=== PATIENT | female | born 1935 | race Caucasian/White ===

== ENCOUNTER 2020-08-25 08:28 | Outpatient (REF) | payer MEDICARE, SELFPAY ==
--- NOTE | 2020-08-25 | MM_ITS ---
EXAMINATION: MM SCREENING DIGITAL BREAST TOMOSYNTHESIS, BILATERAL CLINICAL INFORMATION: Screening. Asymptomatic. The lifetime risk of breast cancer based on the Tyrer-Cuzick Model is 0.7%. COMPARISON: Mammography: August 20, 2019 and studies dating back to February 04, 2012 TECHNIQUE: Digital breast tomosynthesis is performed in both the craniocaudal and mediolateral oblique views along with computer-aided detection (CAD). Synthesized 2D images are generated from the tomosynthesis. FINDINGS: There are scattered areas of fibroglandular density (ACR BI-RADS breast composition Category b). There are no significant masses, abnormal calcifications, or other abnormalities. MM/MM tomosynthesis screening BI IMPRESSION: There are no significant changes from prior study. ASSESSMENT: BI-RADS 1: Negative RECOMMENDATION: Routine annual mammography screening. This patient's information was entered into a reminder system with a target due date for their next mammogram.
[2020-08-25 10:42] LABS: Cholesterol 159 mg/dL; HDL Cholesterol 50 mg/dL; LDL Cholesterol Calculated 78 mg/dl; Triglycerides 155 mg/dL
== END 2020-08-25 08:29 | disposition home or self-care (01) ==
LOC: HO.MAMMO 08:28
PROVIDERS: PCP Internal Medicine; Visit Provider Internal Medicine
DX: Z12.31 Encounter for screening mammogram for malignant neoplasm of breast (principal); E78.5 Hyperlipidemia, unspecified
CPT/HCPCS: 77063; 77067; 80061

== ENCOUNTER 2020-10-19 | Outpatient (REF) | payer MEDICARE, SELFPAY | END 2020-10-19 00:01 | disposition home or self-care (01) | LOC: HO.VC | PROVIDERS: Visit Provider Internal Medicine | DX: Z23 Encounter for immunization (principal) | CPT/HCPCS: 0011A ==

== ENCOUNTER 2020-11-15 | Outpatient (REF) | payer MEDICARE, SELFPAY | END 2020-11-15 00:01 | disposition home or self-care (01) | LOC: HO.VC | PROVIDERS: Visit Provider Internal Medicine | DX: Z23 Encounter for immunization (principal) | CPT/HCPCS: 0012A ==

== ENCOUNTER 2020-11-15 08:26 | Outpatient (REF) | payer MEDICARE, SELFPAY ==
[2020-11-15 09:14] LABS: MANUAL DIFF FLAG NO
[2020-11-15 09:19] LABS: Basophils Percent Auto 0.5 % (0-2); Eosinophils Absolute Auto 0.2 X10*3/uL (0.0-0.4); Eosinophils Percent Auto 3.4 % (0-4); Hemoglobin 11.8 g/dl (12.0-16.0); Imm Gran Abs Auto 0.02 X10*3/uL (0.00-0.03); Imm Gran Pct Auto 0.4 % (0.0-0.4); Lymphocytes Absolute Auto 1.2 X10*3/uL (1.2-4.9); Lymphocytes Percent Auto 21.8 % (20-40); Mean Corpuscular HGB Conc 32.8 g/dl (31.0-35.0); Mean Corpuscular Hemoglobin 30.4 pg (27.0-33.0); Mean Corpuscular Volume 92.8 fL (80-98); Monocytes Absolute Auto 0.5 X10*3/uL (0.1-1.2); Monocytes Percent Auto 9.2 % (2-11); Neutrophils Absolute Auto 3.7 X10*3/uL (2.0-8.3); Neutrophils Percent Auto 64.7 % (45-73); Platelet Count 252 X10*3/uL (160-400); Red Blood Count 3.88 X10*6/uL (4.20-5.50); Red Cell Distribution Width 12.5 % (11.0-16.0); White Blood Count 5.6 X10*3/uL (4.8-10.8)
[2020-11-15 09:49] LABS: Alanine Aminotransferase 12 U/L (0-31); Albumin Level 4.6 g/dL (3.5-5.0); Alkaline Phosphatase 96 U/L (39-117); Anion Gap 13 (12-20); Aspartate Amino Transferase 15 U/L (5-31); Bilirubin Total 0.6 mg/dL (0.0-1.0); Blood Urea Nitrogen 33 mg/dL (9-16); Calcium 9.4 mg/dL (8.4-10.2); Carbon Dioxide 24 mmol/L (22-29); Chloride 110 mmol/L (96-108); Cholesterol 156 mg/dL; Estimated Glomerular Filt Rate 36; Glucose Fasting 90 mg/dL (60-99); HDL Cholesterol 46 mg/dL; LDL Cholesterol Calculated 77 mg/dl; Magnesium 1.5 mg/dL (1.6-2.6); Phosphorus 3.2 mg/dL (2.7-4.5); Potassium 5.2 mmol/L (3.3-5.1); Sodium 142 mmol/L (135-145); Total Protein 7.3 g/dL (6.5-8.0); Triglycerides 165 mg/dL
[2020-11-15 10:17] LABS: Vitamin D 25-OH Total 23.3 ng/mL (>30)
[2020-11-15 11:12] LABS: Renal w Reflex Lab Use Only Order verified
[2020-11-17 12:01] LABS: Calcium (PTHI) 9.8 mg/dL (8.6-10.4); PTHI 170 pg/mL (14-64)
== END 2020-11-15 08:27 | disposition home or self-care (01) ==
LOC: HO.LAB 08:26
PROVIDERS: Absent Provider Internal Medicine; PCP Internal Medicine; Visit Provider Internal Medicine Nephrology
DX: Z00.00 Encounter for general adult medical examination without abnormal findings (principal); E11.22 Type 2 diabetes mellitus with diabetic chronic kidney disease; I12.9 Hypertensive chronic kidney disease with stage 1 through stage 4 chronic kidney disease, or unspecified chronic kidney disease; N18.30 Chronic kidney disease, stage 3 unspecified; N25.81 Secondary hyperparathyroidism of renal origin
CPT/HCPCS: 36415; 80053; 80061; 82306; 83735; 83970; 84100; 85025

== ENCOUNTER 2021-01-31 08:19 | Outpatient (REF) | payer MEDICARE, SELFPAY ==
[2021-01-31 09:31] LABS: MANUAL DIFF FLAG NO
[2021-01-31 09:41] LABS: Basophils Percent Auto 0.6 % (0-2); Eosinophils Absolute Auto 0.2 X10*3/uL (0.0-0.4); Eosinophils Percent Auto 3.6 % (0-4); Hematocrit 34.8 % (37-47); Hemoglobin 11.3 g/dl (12.0-16.0); Imm Gran Abs Auto 0.01 X10*3/uL (0.00-0.03); Imm Gran Pct Auto 0.2 % (0.0-0.4); Lymphocytes Absolute Auto 1.2 X10*3/uL (1.2-4.9); Mean Corpuscular HGB Conc 32.5 g/dl (31.0-35.0); Mean Corpuscular Hemoglobin 30.4 pg (27.0-33.0); Mean Corpuscular Volume 93.5 fL (80-98); Mean Platelet Volume 10.1 fL (9.4-12.3); Monocytes Absolute Auto 0.5 X10*3/uL (0.1-1.2); Neutrophils Absolute Auto 2.9 X10*3/uL (2.0-8.3); Neutrophils Percent Auto 60.6 % (45-73); Platelet Count 241 X10*3/uL (160-400); Red Blood Count 3.72 X10*6/uL (4.20-5.50); White Blood Count 4.7 X10*3/uL (4.8-10.8)
[2021-01-31 09:59] LABS: Alanine Aminotransferase 13 U/L (0-31); Albumin Level 4.2 g/dL (3.5-5.0); Alkaline Phosphatase 92 U/L (39-117); Anion Gap 14 (12-20); Aspartate Amino Transferase 14 U/L (5-31); Bilirubin Total 0.5 mg/dL (0.0-1.0); Blood Urea Nitrogen 39 mg/dL (9-16); Calcium 9.3 mg/dL (8.4-10.2); Carbon Dioxide 21 mmol/L (22-29); Chloride 113 mmol/L (96-108); Cholesterol 147 mg/dL; Estimated Glomerular Filt Rate 37; Glucose Fasting 91 mg/dL (60-99); HDL Cholesterol 48 mg/dL; LDL Cholesterol Calculated 75 mg/dl; Potassium 4.7 mmol/L (3.3-5.1); Sodium 143 mmol/L (135-145); Total Protein 6.9 g/dL (6.5-8.0); Triglycerides 122 mg/dL
[2021-01-31 10:22] LABS: Thyroid Stimulating Hormone 1.28 uIU/mL (0.32-4.0)
== END 2021-01-31 08:20 | disposition home or self-care (01) ==
LOC: HO.LAB 08:19
PROVIDERS: PCP Internal Medicine; Visit Provider Internal Medicine
DX: Z00.00 Encounter for general adult medical examination without abnormal findings (principal); E03.9 Hypothyroidism, unspecified; E11.9 Type 2 diabetes mellitus without complications
CPT/HCPCS: 36415; 80053; 80061; 84443; 85025

== ENCOUNTER 2021-02-16 10:46 | Inpatient (IN) | payer MEDICARE, SELFPAY ==
--- NOTE | 2021-02-16 | ECG_ITS ---
Test Reason : CHEST PAIN Blood Pressure : / mmHG Vent. Rate : 070 BPM Atrial Rate : 070 BPM P-R Int : 176 ms QRS Dur : 080 ms QT Int : 380 ms P-R-T Axes : 005 023 053 degrees QTc Int : 410 ms Normal sinus rhythm Nonspecific T wave changes Borderline ECG When compared to the previous EKG of nonspecific T wave changes in V1 and V2 Referred By: Ethel Ovalles Electronically Signed By:Harman Rico
--- NOTE | ~2021-02-16 | XR_ITS ---
EXAMINATION: XR CHEST CLINICAL INFORMATION: Chest pain. COMPARISON: None TECHNIQUE: Frontal view of the chest was obtained. FINDINGS: No significant abnormality is noted involving the heart, lungs, mediastinum, bony thorax or soft tissues. XR/XR chest 1V IMPRESSION: Unremarkable chest examination.
--- NOTE | ~2021-02-16 | US_ITS ---
EXAMINATION: US ABDOMEN COMPLETE CLINICAL INFORMATION: Epigastric pain, elevated LFTs. COMPARISON: CT scan of the abdomen and pelvis dated 12/14/2015. TECHNIQUE: Real-time imaging of the abdominal viscera. FINDINGS: PANCREAS: Visualized portions unremarkable. ABDOMINAL AORTA: Infrarenal abdominal aortic aneurysm measuring up to 3.0 cm in transverse dimension. Mild to moderate atherosclerosis INFERIOR VENA CAVA: Visualized portions are normal. LIVER: Unremarkable. GALLBLADDER: Several gallstones are seen measuring up to 0.9 cm. No significant mural thickening or pericholecystic fluid. COMMON BILE DUCT: The common hepatic duct measures 1.2 cm. The common bile duct was not well-visualized distally. RIGHT KIDNEY: 9.9 cm. Several anechoic cysts are seen. A manufacturers representative cyst in the upper pole the right kidney measures 1.9 cm. LEFT KIDNEY: 10.5 cm. Several anechoic cysts are seen. An exophytic cyst off of the upper pole the left kidney measures 4.0 cm. SPLEEN: 9.2 cm. FREE FLUID: None. US/US abdomen complete IMPRESSION: 1. Infrarenal abdominal aortic aneurysm measuring up to 3.0 cm is similar to the 2016 study. Current imaging follow-up guidance for an aneurysm of the size is a repeat 3 years. 2. Cholelithiasis without evidence for acute cholecystitis. 3. Dilatation of the common hepatic duct is similar to the previous CT scan. The common bile duct distally with suboptimally visualized. If symptoms persist or worsen, MRCP should be considered. 4. Bilateral renal cysts, left greater than right demonstrate benign features and correlate with previous CT findings.
--- NOTE | ~2021-02-16 | NM_ITS ---
Myocardial perfusion study Indication: NSTEMI Technique: The patient was brought in for a Lexiscan perfusion study on 02/20/2021. Patient performed low-level exercise and was injected 0.4 mg of Lexiscan intravenously. Within a minute of injection, 25 mCi of sestamibi was given intravenously. Images were obtained using the SPECT gamma camera interlaced with the gating device. Images were obtained in supine position. Resting perfusion study was performed on 02/21/2021. Patient was administered 25 mCi of sestamibi intravenously at rest. Images were then obtained in supine position. Images obtained with and without CT attenuation. Total DLP 125 mGy-cm. Images were processed with the software and compared side to side in short axis, horizontal long axis and vertical long axis views. Findings: The stress perfusion study showed both attenuated as well as nonattenuated images show normal uptake of radiotracer in all segments of LV myocardium. There is suggestion of left ventricle hypertrophy.. The gated study shows normal LV systolic function with calculated LVEF of greater than 69 %. LV cavity is normal in size. The gated study shows normal cyst colic wall thickening and contraction of segments. Resting study shows mildly reduced uptake in the apex of the LV myocardium on both attenuated as well as nonattenuated images.. Gating at rest reveals normal systolic wall motion with ejection fraction at 71%. The findings are consistent with normal myocardial perfusion. NM/NM cardiolite stress test Impression: 1. Myocardial perfusion imaging study shows normal myocardial perfusion 2. Gated LVEF is 71% 3. Transient ischemic dilatation not present EKG is nondiagnostic for ischemia
[2021-02-16 10:54] VITALS: BP 174/74; PULSE 69; RESP 16; TEMP 36.9; O2SAT 99; BMI 28.7
--- NOTE | 2021-02-16 10:56 | ED.CHESTPAIN ---
HPI - Chest Pain General Chief Complaint: Chest Pain Stated Complaint: CHEST PAIN Time Seen by Provider: 02/16/21 10:56 Source: patient and EMS Mode of arrival: EMS Limitations: no limitations History of Present Illness MD complaint: chest heaviness Pertinent past history: other (GERD) Onset (ago): hour(s) (started at 5am just resolved prior to EMS arrival) Timing of current episode: now resolved Prior episodes: Yes Onset: during rest and awoke with symptoms Pain location: substernal Pain radiation: none Severity: moderate Quality: heaviness Relieving factors: antacids Exacerbating factors: nothing Associated symptoms: nausea, diaphoresis and dyspnea Treatment prior to arrival: aspirin and other (pantoprazole) Related Data Home Medications Medication Instructions Recorded Confirmed ergocalciferol (vitamin D2) 1,250 1,250 mcg PO Q2W 09/30/20 02/16/21 mcg (50,000 unit) capsule simvastatin 20 mg tablet 20 mg PO BEDTIME 09/30/20 02/16/21 aspirin 81 mg PO DAILY 02/16/21 02/16/21 lorazepam 0.5 mg PO DAILY PRN 02/16/21 02/16/21 nifedipine 90 mg PO DAILY 02/16/21 02/16/21 pantoprazole 40 mg PO DAILY@0630 02/16/21 02/16/21 psyllium husk [Metamucil] 1.04 g PO BEDTIME 02/16/21 02/16/21 Previous Rx's Medication Instructions Recorded valsartan 160 1 tab PO DAILY #90 tab 01/16/21 mg-hydrochlorothiazide 25 mg tablet Allergies Allergy/AdvReac Type Severity Reaction Status Date / Time No Known Drug Intolerances Allergy Unknown NOT Verified 09/30/20 09:39 APPLICABLE Review of Systems Review of Systems: Constitutional : No Weight loss, No Fever, No Chills ENT/Mouth : No sore throat, No Rhinorrhea Eyes: No Eye Pain, No Swelling Cardiovascular : pos Chest Pain, pos SOB, no Dyspnea on Exertion, No Orthopnea, No Edema, No Palpitations Respiratory : No Cough, No Sputum Gastrointestinal : pos Nausea, No Vomiting, No Diarrhea, No abdominal Pain, No Hematochezia, No Melena Genitourinary : No Dysuria, No Urinary Frequency Musculoskeletal : No joint pain, No Myalgias, No Joint Swelling Skin : No Skin Lesions, No rash Neuro : No Weakness, No Numbness, No Dizziness, No Headache Psych : No Anxiety/Panic, No Depression Heme/Lymph: No Bruising, No Lymphadenopathy Endocrine : No Polyuria, No Polydipsia All other systems reviewed and are negative [facility] Past Medical History Attestation statement: The following information was validated with the patient. Medical History Hyperlipidemia Hypertension Surgical History Faizaertoe, bilateral Total knee replacement status Family History Family History Father Heart disease Mother No problems noted. Brother Heart disease Social History Social History Alcohol intake: never Patient Tobacco Use Status: Former Tobacco user Tobacco use type: Cigarette Second Hand Smoke Exposure: No Use of substances other than those prescribed or required for medical reasons: No Advance Directives: Yes Advance Directives Information Provided: No Advance Directives on File: No Physical Exam Vital Signs: Vital Signs: Last Vital Signs Temp 98.7 F 02/16/21 15:41 Pulse 62 02/16/21 15:41 Resp 16 02/16/21 15:41 BP 149/56 H 02/16/21 15:41 Pulse Ox 99 02/16/21 15:41 Body Mass Index 28.7 Appearance: Alert. Oriented X3. No acute distress. Eyes: Pupils equal, round and reactive to light. ENT: Pharynx normal. Neck: Normal inspection. Neck supple. CVS: Normal heart rate and rhythm. Pulses normal. Respiratory: No respiratory distress. Breath sounds normal. Abdomen: Soft and nontender. Skin: Skin warm and dry. Normal skin color. Normal skin turgor. Extremities: No lower extremity edema. No calf ttp Neuro: Oriented X 3. No motor deficit. No sensory deficit. Course Course Course Narrative: no pain likely biliary colic vs passed stone, repeat trop pending, she has no WBC count, she has no further pain so obstruction seems unusual will repeat LFTs to see if there is a rise repeat troponin elevated already given aspirin remains chest pain free will admit for further workup MDM - Chest Pain MDM Narrative Medical decision making narrative: 85 yo female with HLD, HTN here with resovled chest discomfort strted at 5am took aspirin and pantoprazole no prior cardiac issues but her story is concerning no pain now will need labs, EKG, troponin x 2, dispo per results and findings, could be GERD vs ACS, doubt dissection or PE Lab Data Result diagrams: 02/16/21 11:24 02/16/21 11:24 Labs: Lab Results 02/16/21 02/16/21 02/16/21 Range/Units 11:24 11:24 11:24 WBC 5.5 (4.8-10.8) X10*3/uL RBC 3.73 L (4.20-5.50) X10*6/uL Hgb 11.4 L (12.0-16.0) g/dl Hct 34.8 L (37-47) % MCV 93.3 (80-98) fL MCH 30.6 (27.0-33.0) pg MCHC 32.8 (31.0-35.0) g/dl RDW 12.3 (11.0-16.0) % Plt Count 215 (160-400) X10*3/uL MPV 9.8 (9.4-12.3) fL Immature Gran % (Auto) 0.2 (0.0-0.4) % Neut % (Auto) 75.3 H (45-73) % Lymph % (Auto) 15.3 L (20-40) % [place] % (Auto) 7.8 (2-11) % Eos % (Auto) 0.9 (0-4) % Baso % (Auto) 0.5 (0-2) % Lymph # (Auto) 0.8 L (1.2-4.9) X10*3/uL [place] # (Auto) 0.4 (0.1-1.2) X10*3/uL Eos # (Auto) 0.1 (0.0-0.4) X10*3/uL Baso # (Auto) 0.0 (0.0-0.2) X10*3/uL Abs Immat Gran (auto) 0.01 (0.00-0.03) X10*3/uL Absolute Neuts (auto) 4.1 (2.0-8.3) X10*3/uL Absolute Nucleated RBC 0.000 (0.0-0.012) X10*3/uL Nucleated RBC % (auto) 0.0 (0.0-0.2) /100WBC PT 11.1 (10.8-13.0) SEC INR 0.9 (0.9-1.1) APTT 29.5 (24.1-38.0) SEC Sodium 142 (135-145) mmol/L Potassium 5.4 H (3.3-5.1) mmol/L Chloride 112 H (96-108) mmol/L Carbon Dioxide 22 (22-29) mmol/L Anion Gap 13 (12-20) BUN 39 H (9-16) mg/dL Creatinine 1.46 H (0.5-1.4) mg/dL Estim Creat Clear Calc 24.4 Estimated GFR 34 Random Glucose 104 (60-115) mg/dL Calcium 9.4 (8.4-10.2) mg/dL Magnesium 1.5 L (1.6-2.6) mg/dL Total Bilirubin 0.7 (0.0-1.0) mg/dL Direct Bilirubin 0.4 (0.0-0.5) mg/dL AST 146 H (5-31) U/L ALT 88 H (0-31) U/L Alkaline Phosphatase 126 H D (39-117) U/L Troponin I High Sens (<3.5-17.0) ng/L Total Protein 7.2 (6.5-8.0) g/dL Albumin 4.5 (3.5-5.0) g/dL Lipase 33 (8-78) U/L Urine Color Urine Appearance Urine pH (5.0-8.0) Ur Specific [place] (1.005-1.025) Urine Protein (NEG-TRACE) MG/DL Urine Glucose (UA) (NEG) MG/DL Urine Ketones (NEG) MG/DL Urine Blood (NEG) Urine Nitrite (NEG) Ur Leukocyte Esterase (NEG) Urine RBC (0) /HPF Urine WBC (0-4) /HPF Ur Squamous Epith Cells /LPF Urine Bacteria /LPF COVID-19 ([facility]) (Negative) COVID-19 Clin Com 02/16/21 02/16/21 02/16/21 Range/Units 11:24 11:24 11:43 WBC (4.8-10.8) X10*3/uL RBC (4.20-5.50) X10*6/uL Hgb (12.0-16.0) g/dl Hct (37-47) % MCV (80-98) fL MCH (27.0-33.0) pg MCHC (31.0-35.0) g/dl RDW (11.0-16.0) % Plt Count (160-400) X10*3/uL MPV (9.4-12.3) fL Immature Gran % (Auto) (0.0-0.4) % Neut % (Auto) (45-73) % Lymph % (Auto) (20-40) % [place] % (Auto) (2-11) % Eos % (Auto) (0-4) % Baso % (Auto) (0-2) % Lymph # (Auto) (1.2-4.9) X10*3/uL [place] # (Auto) (0.1-1.2) X10*3/uL Eos # (Auto) (0.0-0.4) X10*3/uL Baso # (Auto) (0.0-0.2) X10*3/uL Abs Immat Gran (auto) (0.00-0.03) X10*3/uL Absolute Neuts (auto) (2.0-8.3) X10*3/uL Absolute Nucleated RBC (0.0-0.012) X10*3/uL Nucleated RBC % (auto) (0.0-0.2) /100WBC PT (10.8-13.0) SEC INR (0.9-1.1) APTT (24.1-38.0) SEC Sodium (135-145) mmol/L Potassium (3.3-5.1) mmol/L Chloride (96-108) mmol/L Carbon Dioxide (22-29) mmol/L Anion Gap (12-20) BUN (9-16) mg/dL Creatinine (0.5-1.4) mg/dL Estim Creat Clear Calc Estimated GFR Random Glucose (60-115) mg/dL Calcium (8.4-10.2) mg/dL Magnesium (1.6-2.6) mg/dL Total Bilirubin (0.0-1.0) mg/dL Direct Bilirubin (0.0-0.5) mg/dL AST (5-31) U/L ALT (0-31) U/L Alkaline Phosphatase (39-117) U/L Troponin I High Sens 6.4 (<3.5-17.0) ng/L Total Protein (6.5-8.0) g/dL Albumin (3.5-5.0) g/dL Lipase (8-78) U/L Urine Color YELLOW Urine Appearance HAZY Urine pH 6.0 (5.0-8.0) Ur Specific [place] 1.020 (1.005-1.025) Urine Protein 1+ H (NEG-TRACE) MG/DL Urine Glucose (UA) NEG (NEG) MG/DL Urine Ketones NEG (NEG) MG/DL Urine Blood NEG (NEG) Urine Nitrite NEG (NEG) Ur Leukocyte Esterase 1+ H (NEG) Urine RBC 0 (0) /HPF Urine WBC 15-29 H (0-4) /HPF Ur Squamous Epith Cells 3+ /LPF Urine Bacteria 4+ /LPF COVID-19 ([facility]) Negative (Negative) COVID-19 Clin Com See Note 02/16/21 02/16/21 Range/Units 15:00 15:13 WBC (4.8-10.8) X10*3/uL RBC (4.20-5.50) X10*6/uL Hgb (12.0-16.0) g/dl Hct (37-47) % MCV (80-98) fL MCH (27.0-33.0) pg MCHC (31.0-35.0) g/dl RDW (11.0-16.0) % Plt Count (160-400) X10*3/uL MPV (9.4-12.3) fL Immature Gran % (Auto) (0.0-0.4) % Neut % (Auto) (45-73) % Lymph % (Auto) (20-40) % [place] % (Auto) (2-11) % Eos % (Auto) (0-4) % Baso % (Auto) (0-2) % Lymph # (Auto) (1.2-4.9) X10*3/uL [place] # (Auto) (0.1-1.2) X10*3/uL Eos # (Auto) (0.0-0.4) X10*3/uL Baso # (Auto) (0.0-0.2) X10*3/uL Abs Immat Gran (auto) (0.00-0.03) X10*3/uL Absolute Neuts (auto) (2.0-8.3) X10*3/uL Absolute Nucleated RBC (0.0-0.012) X10*3/uL Nucleated RBC % (auto) (0.0-0.2) /100WBC PT (10.8-13.0) SEC INR (0.9-1.1) APTT (24.1-38.0) SEC Sodium (135-145) mmol/L Potassium (3.3-5.1) mmol/L Chloride (96-108) mmol/L Carbon Dioxide (22-29) mmol/L Anion Gap (12-20) BUN (9-16) mg/dL Creatinine (0.5-1.4) mg/dL Estim Creat Clear Calc Estimated GFR Random Glucose (60-115) mg/dL Calcium (8.4-10.2) mg/dL Magnesium (1.6-2.6) mg/dL Total Bilirubin 0.5 (0.0-1.0) mg/dL Direct Bilirubin 0.2 (0.0-0.5) mg/dL AST 155 H (5-31) U/L ALT 112 H (0-31) U/L Alkaline Phosphatase 122 H (39-117) U/L Troponin I High Sens 21.6 H* D (<3.5-17.0) ng/L Total Protein 6.8 (6.5-8.0) g/dL Albumin 4.2 (3.5-5.0) g/dL Lipase (8-78) U/L Urine Color Urine Appearance Urine pH (5.0-8.0) Ur Specific [place] (1.005-1.025) Urine Protein (NEG-TRACE) MG/DL Urine Glucose (UA) (NEG) MG/DL Urine Ketones (NEG) MG/DL Urine Blood (NEG) Urine Nitrite (NEG) Ur Leukocyte Esterase (NEG) Urine RBC (0) /HPF Urine WBC (0-4) /HPF Ur Squamous Epith Cells /LPF Urine Bacteria /LPF COVID-19 (SARAH) (Negative) COVID-19 Clin Com ECG Data ECG #1: Attestation: I personally reviewed and interpreted this ECG as follows: ECG interpretation date: 02/16/21 ECG interpretation time: 11:05 Interpretation: Rate: 70 Rhythm: NSR Climax:normal Normal P waves. Normal CARLEEN. Normal QRS complex. ST T wave : normal no BRUNO qTC: normal prior studies: no acute ischemia no sig change 2017 The study has been interpreted contemporaneously by me. . Discharge Plan Discharge Clinical Impression: Chest pain, Biliary colic, Elevated troponin Patient Disposition: Admitted As Inpatient Prescriptions: No Action valsartan-hydrochlorothiazide 160-25 mg tablet 1 tab PO DAILY Qty: 90 RF: 8 nifedipine 90 mg tablet extended release 24hr 90 mg PO DAILY RF: 0 pantoprazole 40 mg tablet,delayed release (DR/EC) 40 mg PO DAILY@0630 RF: 0 aspirin 81 mg Tablet,Chewable 81 mg PO DAILY RF: 0 psyllium husk [Metamucil] 0.52 gram Capsule 1.04 g PO BEDTIME RF: 0 lorazepam 0.5 mg Tablet 0.5 mg PO DAILY PRN (Reason: Anxiety) RF: 0 ergocalciferol (vitamin D2) 1,250 mcg (50,000 unit) capsule 1,250 mcg PO Q2W RF: 0 simvastatin 20 mg tablet 20 mg PO BEDTIME RF: 0
[2021-02-16 11:34] LABS: MANUAL DIFF FLAG NO
[2021-02-16 11:38] LABS: Basophils Percent Auto 0.5 % (0-2); Eosinophils Absolute Auto 0.1 X10*3/uL (0.0-0.4); Eosinophils Percent Auto 0.9 % (0-4); Hematocrit 34.8 % (37-47); Hemoglobin 11.4 g/dl (12.0-16.0); Imm Gran Abs Auto 0.01 X10*3/uL (0.00-0.03); Imm Gran Pct Auto 0.2 % (0.0-0.4); Lymphocytes Absolute Auto 0.8 X10*3/uL (1.2-4.9); Lymphocytes Percent Auto 15.3 % (20-40); Mean Corpuscular HGB Conc 32.8 g/dl (31.0-35.0); Mean Corpuscular Hemoglobin 30.6 pg (27.0-33.0); Mean Corpuscular Volume 93.3 fL (80-98); Mean Platelet Volume 9.8 fL (9.4-12.3); Monocytes Absolute Auto 0.4 X10*3/uL (0.1-1.2); Monocytes Percent Auto 7.8 % (2-11); Neutrophils Absolute Auto 4.1 X10*3/uL (2.0-8.3); Neutrophils Percent Auto 75.3 % (45-73); Platelet Count 215 X10*3/uL (160-400); Red Blood Count 3.73 X10*6/uL (4.20-5.50); Red Cell Distribution Width 12.3 % (11.0-16.0); White Blood Count 5.5 X10*3/uL (4.8-10.8)
[2021-02-16 11:39] VITALS: BP 174/74; PULSE 72; RESP 18; TEMP 36.9; O2SAT 99
--- NOTE | 2021-02-16 11:41 | HE.PHANOTE ---
MED REC COMPLETE, NO ISSUES
[2021-02-16 11:43] LABS: INTERNATIONAL NORM RATIO 0.9 (0.9-1.1); Prothrombin Time 11.1 SEC (10.8-13.0)
[2021-02-16 11:46] LABS: Partial Thromboplastin Time 29.5 SEC (24.1-38.0)
[2021-02-16 11:54] LABS: COVID-19 Test Negative (Negative); IDNOW Serial# 9DD0AD1C
[2021-02-16 12:00] LABS: Glucose Urine UA NEG (NEG); Leukocyte Esterase Urine 1+ (NEG); Nitrite Urine NEG (NEG); UACC Culture Trigger YES; Urine Blood NEG (NEG); Urine Ketones NEG (NEG); Urine Protein 1+ MG/DL (NEG-TRACE)
[2021-02-16 12:02] LABS: Appearance Urine HAZY; Color Urine YELLOW
[2021-02-16 12:05] LABS: Troponin-I High Sensitivity 6.4 ng/L (<3.5-17.0)
[2021-02-16 12:07] LABS: Alanine Aminotransferase 88 U/L (0-31); Albumin Level 4.5 g/dL (3.5-5.0); Alkaline Phosphatase 126 U/L (39-117); Anion Gap 13 (12-20); Aspartate Amino Transferase 146 U/L (5-31); Bilirubin Direct 0.4 mg/dL (0.0-0.5); Bilirubin Total 0.7 mg/dL (0.0-1.0); Blood Urea Nitrogen 39 mg/dL (9-16); Calcium 9.4 mg/dL (8.4-10.2); Carbon Dioxide 22 mmol/L (22-29); Chloride 112 mmol/L (96-108); Creatinine Clr Calc Pharmacy 24.4; Estimated Glomerular Filt Rate 34; Glucose Random 104 mg/dL (60-115); Lipase 33 U/L (8-78); Magnesium 1.5 mg/dL (1.6-2.6); Potassium 5.4 mmol/L (3.3-5.1); Sodium 142 mmol/L (135-145); Total Protein 7.2 g/dL (6.5-8.0)
[2021-02-16 13:06] LABS: Bacteria Urine 4+ /LPF; RBC Urine 0 /HPF (0); Squamous Epithelial Cell Urine 3+ /LPF
[2021-02-16] MEDS: Magnesium Sulfate/H2O 2 GM/50 ML PIGGYBACK IV (14:31)
[2021-02-16 15:41] VITALS: BP 149/56; PULSE 62; RESP 16; TEMP 37.1; O2SAT 99
[2021-02-16 16:10] LABS: Alanine Aminotransferase 112 U/L (0-31); Albumin Level 4.2 g/dL (3.5-5.0); Alkaline Phosphatase 122 U/L (39-117); Aspartate Amino Transferase 155 U/L (5-31); Bilirubin Direct 0.2 mg/dL (0.0-0.5); Bilirubin Total 0.5 mg/dL (0.0-1.0); Total Protein 6.8 g/dL (6.5-8.0)
[2021-02-16 16:15] LABS: Troponin-I High Sensitivity 21.6 ng/L (<3.5-17.0)
--- NOTE | 2021-02-16 16:25 | PC.NURSE ---
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
[2021-02-16 19:08] VITALS: BP 156/69; PULSE 73; RESP 19; TEMP 36.9; O2SAT 100
[2021-02-16 21:33] VITALS: BP 165/64; PULSE 72; RESP 19; O2SAT 98
--- NOTE | 2021-02-16 22:49 | PM.IMHP ---
History of Present Illness Date of Service: 02/16/21 Chief Complaint: chest pain 85-year-old female with past medical history of hypertension who presents to the hospital chest pain. Patient reports that the pain started around 4:00 a.m., midsternal, 9/10, squeezing, nonradiating, called her emergency services and was told to take 4 baby aspirins that helped the pain. Please not also felt short of breath but reports that could be because she was nervous. She had no palpitations, she did feel lightheaded, currently has no chest pain. Patient denies any nausea vomiting, no abdominal pain diarrhea or constipation. has urinary frequency, no lower extremity edema. No numbness tingling or weakness. On arrival to the ED vital significant for temp of 98.4?, heart rate of 69, respiratory rate of 16, blood pressure of 174/74, satting 99% on room air Labs are significant for WBC count of 5.5, hemoglobin of 11.4 which is around her baseline, potassium of 5.4, BUN of 39, creatinine of 1.46 which is around her baseline, magnesium of 1.5, AST of 146, ALT of 80, alk-phos of 126, initial troponin of 6.4, that increased to 21.6. UA positive for leukocyte Estrace as well as WBC EKG reviewed shows NSR with no st-t wave changes Patient will be admitted for ACS rule out given the delta and troponin elevation Review of Systems Review of Systems: Yes all other systems are reviewed and are negative REPLACED BY [facility] Medical History Hyperlipidemia Hypertension Family History Father Heart disease Mother No problems noted. Brother Heart disease Surgical History Hammertoe, bilateral Total knee replacement status Social History Alcohol intake: never Patient Tobacco Use Status: Former Tobacco user Tobacco use type: Cigarette Second Hand Smoke Exposure: No Use of substances other than those prescribed or required for medical reasons: No Advance Directives: Yes Advance Directives Information Provided: No Advance Directives on File: No Advance Directives Date on File: 02/17/21 Meds Allergies Allergy/AdvReac Type Severity Reaction Status Date / Time No Known Drug Intolerances Allergy Unknown NOT Verified 09/30/20 09:39 APPLICABLE Active Medications: Current Medications Generic Name Dose Route Start Last Admin Trade Name Yvonq PRN Reason Stop Dose Admin Pharmacy Consult 1 each 02/16/21 10:56 Consult Rx Perform Med Rec MISCELLANE ONCE PRN Consult order Home Medications Medication Instructions Recorded Confirmed Last Taken Type ergocalciferol (vitamin D2) 1,250 1,250 mcg PO Q2W 09/30/20 02/16/21 02/12/21 History mcg (50,000 unit) capsule simvastatin 20 mg tablet 20 mg PO BEDTIME 09/30/20 02/16/21 Unknown History aspirin 81 mg PO DAILY 02/16/21 02/16/21 Unknown History lorazepam 0.5 mg PO DAILY PRN 02/16/21 02/16/21 Unknown History nifedipine 90 mg PO DAILY 02/16/21 02/16/21 Unknown History pantoprazole 40 mg PO DAILY@0630 02/16/21 02/16/21 02/16/21 History psyllium husk [Metamucil] 1.04 g PO BEDTIME 02/16/21 02/16/21 Unknown History Physical Exam Vital Signs and Narrative: Vital Signs: Last Vital Signs Temp 98.5 F 02/16/21 19:08 Pulse 72 02/16/21 21:33 Resp 19 02/16/21 21:33 BP 165/64 H 02/16/21 21:33 Pulse Ox 98 02/16/21 21:33 Body Mass Index 28.7 Const: General: cooperative and no acute distress Orientation/consciousness: patient oriented x3 Eyes: General: appearance normal, both eyes and all related structures Resp: Effort & Inspection: normal respiratory effort and able to speak in complete sentences Cardio: Rate: regular rate Rhythm: regular rhythm GI: Palpation (GI): Soft to palpation Auscultation: normal bowel sounds Skin: General skin exam: no rashes or lesions noted Neuro: General: patient oriented x3 Cognition (Neuro): normal cognition Extrem: General: Yes normal to inspection and Yes no pedal edema Results Labs CBC and Chem 7: 02/16/21 11:24 02/16/21 11:24 Labs: Laboratory Results - last 24 hr 06/12/0402/16/21 02/16/21 11:24 11:24 11:24 MCV 93.3 MCH 30.6 MCHC 32.8 RDW 12.3 Plt Count 215 MPV 9.8 Immature Gran % (Auto) 0.2 Neut % (Auto) 75.3 H Lymph % (Auto) 15.3 L [place] % (Auto) 7.8 Eos % (Auto) 0.9 Baso % (Auto) 0.5 Lymph # (Auto) 0.8 L [place] # (Auto) 0.4 Eos # (Auto) 0.1 Baso # (Auto) 0.0 Abs Immat Gran (auto) 0.01 Absolute Neuts (auto) 4.1 Absolute Nucleated RBC 0.000 Nucleated RBC % (auto) 0.0 PT 11.1 INR 0.9 APTT 29.5 Anion Gap 13 Estim Creat Clear Calc 24.4 Estimated GFR 34 Random Glucose 104 Calcium 9.4 Magnesium 1.5 L Total Bilirubin 0.7 Direct Bilirubin 0.4 AST 146 H ALT 88 H Alkaline Phosphatase 126 H D Troponin I High Sens Total Protein 7.2 Albumin 4.5 Lipase 33 Urine Color Urine Appearance Urine pH Ur Specific [place] Urine Protein Urine Glucose (UA) Urine Ketones Urine Blood Urine Nitrite Ur Leukocyte Esterase Urine RBC Urine WBC Ur Squamous Epith Cells Urine Bacteria COVID-19 ([facility]ARAH) COVID-19 Clin Com 02/16/21 02/16/21 02/16/21 11:24 11:24 11:43 MCV MCH MCHC RDW Plt Count MPV Immature Gran % (Auto) Neut % (Auto) Lymph % (Auto) [place] % (Auto) Eos % (Auto) Baso % (Auto) Lymph # (Auto) [place] # (Auto) Eos # (Auto) Baso # (Auto) Abs Immat Gran (auto) Absolute Neuts (auto) Absolute Nucleated RBC Nucleated RBC % (auto) PT INR APTT Anion Gap Estim Creat Clear Calc Estimated GFR Random Glucose Calcium Magnesium Total Bilirubin Direct Bilirubin AST ALT Alkaline Phosphatase Troponin I High Sens 6.4 Total Protein Albumin Lipase Urine Color YELLOW Urine Appearance HAZY Urine pH 6.0 Ur Specific [place] 1.020 Urine Protein 1+ H Urine Glucose (UA) NEG Urine Ketones NEG Urine Blood NEG Urine Nitrite NEG Ur Leukocyte Esterase 1+ H Urine RBC 0 Urine WBC 15-29 H Ur Squamous Epith Cells 3+ Urine Bacteria 4+ COVID-19 (SARAH) Negative COVID-19 Clin Com See Note 02/16/21 02/16/21 15:00 15:13 MCV MCH MCHC RDW Plt Count MPV Immature Gran % (Auto) Neut % (Auto) Lymph % (Auto) [place] % (Auto) Eos % (Auto) Baso % (Auto) Lymph # (Auto) [place] # (Auto) Eos # (Auto) Baso # (Auto) Abs Immat Gran (auto) Absolute Neuts (auto) Absolute Nucleated RBC Nucleated RBC % (auto) PT INR APTT Anion Gap Estim Creat Clear Calc Estimated GFR Random Glucose Calcium Magnesium Total Bilirubin 0.5 Direct Bilirubin 0.2 AST 155 H ALT 112 H Alkaline Phosphatase 122 H Troponin I High Sens 21.6 H* D Total Protein 6.8 Albumin 4.2 Lipase Urine Color Urine Appearance Urine pH Ur Specific [place] Urine Protein Urine Glucose (UA) Urine Ketones Urine Blood Urine Nitrite Ur Leukocyte Esterase Urine RBC Urine WBC Ur Squamous Epith Cells Urine Bacteria COVID-19 (SARAH) COVID-19 Clin Com Imaging Radiologist's Impressions: Impressions Chest X-Ray 02/16/21 10:57 IMPRESSION: Unremarkable chest examination. Abdomen Ultrasound 02/16/21 12:13 IMPRESSION: 1. Infrarenal abdominal aortic aneurysm measuring up to 3.0 cm is similar to the 2016 study. Current imaging follow-up guidance for an aneurysm of the size is a repeat 3 years. 2. Cholelithiasis without evidence for acute cholecystitis. 3. Dilatation of the common hepatic duct is similar to the previous CT scan. The common bile duct distally with suboptimally visualized. If symptoms persist or worsen, MRCP should be considered. 4. Bilateral renal cysts, left greater than right demonstrate benign features and correlate with previous CT findings. Assessment and Plan (1) Chest pain: Qualifiers: Chest pain type: precordial pain Qualified Code(s): R07.2 - Precordial pain Status: Acute (2) Elevated troponin: Status: Acute (3) UTI (urinary tract infection): Status: Acute (4) Hypomagnesemia: Status: Acute 85 yo Fm with hx of htn presents with complaints of CP # Chest pain - cardiac - has delta elevation of trop - no EKG changes - cardiology consulted #elevated troponing - no ekg chnages - peaked at 26 - cardiology consult # UTI - UA positive - reports frequency - will treat with abx - follow cultures # Hypomagnesemia - repleted - Follow mag level # hypertension - elevated - continue home medications # hyperlipidemia - continue stat DVT prophylaxis heparin subQ
[2021-02-16 22:55] LABS: Troponin-I High Sensitivity 25.9 ng/L (<3.5-17.0)
[2021-02-16 23:20] VITALS: BP 140/56; PULSE 61; RESP 12; O2SAT 97
[2021-02-17] VITALS (10 sets, daily range): BP systolic 131–163; BP diastolic 55–76; PULSE 56–82; RESP 18–20; TEMP 36.1–37.1; O2SAT 95–98
--- NOTE | 2021-02-17 | ECG_ITS ---
Test Reason : ELEVATED TROP Blood Pressure : / mmHG Vent. Rate : 055 BPM Atrial Rate : 055 BPM P-R Int : 164 ms QRS Dur : 076 ms QT Int : 404 ms P-R-T Axes : -23 014 038 degrees QTc Int : 386 ms Sinus bradycardia Otherwise normal ECG When compared with ECG of 16-FEB-2021 10:59, No significant change was found Referred By: Prince Muse Electronically Signed By:Harman Rico
[2021-02-17] MEDS: Heparin Sodium,Porcine 5,000 UNIT/ML VIAL 5000 UNIT SUBCUT ×2 (00:48→12:58)
[2021-02-17] MEDS: Omeprazole 20 MG CAPSULE.DR PO (06:07)
[2021-02-17 06:39] LABS: MANUAL DIFF FLAG NO
[2021-02-17 06:56] LABS: Basophils Percent Auto 0.6 % (0-2); Eosinophils Absolute Auto 0.1 X10*3/uL (0.0-0.4); Eosinophils Percent Auto 3.4 % (0-4); Hemoglobin 10.6 g/dl (12.0-16.0); Imm Gran Abs Auto 0.01 X10*3/uL (0.00-0.03); Imm Gran Pct Auto 0.3 % (0.0-0.4); Lymphocytes Absolute Auto 0.9 X10*3/uL (1.2-4.9); Lymphocytes Percent Auto 24.2 % (20-40); Mean Corpuscular HGB Conc 33.1 g/dl (31.0-35.0); Mean Corpuscular Hemoglobin 30.8 pg (27.0-33.0); Mean Platelet Volume 10.2 fL (9.4-12.3); Monocytes Absolute Auto 0.4 X10*3/uL (0.1-1.2); Monocytes Percent Auto 12.1 % (2-11); Neutrophils Absolute Auto 2.1 X10*3/uL (2.0-8.3); Neutrophils Percent Auto 59.4 % (45-73); Platelet Count 225 X10*3/uL (160-400); Red Blood Count 3.44 X10*6/uL (4.20-5.50); Red Cell Distribution Width 12.4 % (11.0-16.0); White Blood Count 3.6 X10*3/uL (4.8-10.8)
[2021-02-17 07:20] LABS: Anion Gap 13 (12-20); Blood Urea Nitrogen 31 mg/dL (9-16); Calcium 9.4 mg/dL (8.4-10.2); Carbon Dioxide 22 mmol/L (22-29); Chloride 111 mmol/L (96-108); Creatinine Clr Calc Pharmacy 29.4; Estimated Glomerular Filt Rate 42; Glucose Random 84 mg/dL (60-115); Potassium 5.2 mmol/L (3.3-5.1); Sodium 141 mmol/L (135-145)
[2021-02-17] MEDS: NIFEdipine ER 90 MG TAB.ER.24 PO (08:02)
[2021-02-17] MEDS: Valsartan 40 MG TABLET 160 MG PO (08:02)
[2021-02-17] MEDS: Aspirin 81 MG TAB.CHEW PO (08:03)
[2021-02-17] MEDS: hydroCHLOROthiazide 25 MG TABLET PO (08:03)
[2021-02-17] MEDS: cefTRIAXone sodium 1 GM in 0.9 % Sodium Chloride 50 ML IV (09:21)
[2021-02-17 10:22] LABS: Troponin-I High Sensitivity 17.2 ng/L (<3.5-17.0)
--- NOTE | 2021-02-17 10:59 | MHC.CM.PN ---
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
--- NOTE | 2021-02-17 14:00 | CA_ITS ---
Transthoracic Echocardiogram Patient (Last, First, Middle): Nickie Contreras E Gender: Female Date of : 1935 Age: 85 Procedure Date: 02/17/2021 Procedure Type: Transthoracic Echocardiogram [place] [facility] [place]: 154.94 cm Weight: 88. kg BSA: 1.86 m2 Heart Rate: bpm BP: 141 / 76 mmHg Vp Of Marketing: CAYETANO Referring MD: Prince Salazar MD Symptoms: Elevarted troiponin R/O CAD Study Quality: Good Conclusions: - Normal left ventricular size and systolic function. - There is moderately increased left ventricular wall thickness. - There is no evidence of regional wall motion abnormalities. - E/E prime ratio is between 8 and 15 consistent with indeterminate filling pressures. - Normal right ventricular cavity size and systolic function. - There is mild to moderate aortic valve stenosis. Findings Left Ventricle Normal left ventricular size and systolic function. There is moderately increased left ventricular wall thickness. There is no evidence of regional wall motion abnormalities. Abnormal diastolic function is noted. Spectral Doppler is indicative of an impaired relaxation filling pattern. E/E prime ratio is between 8 and 15 consistent with indeterminate filling pressures. Right Ventricle Normal right ventricular cavity size and systolic function. Atria The left atrium is normal in size. Aortic Valve There is moderate calcification of the aortic valve. There is moderate thickening of the aortic valve. There is mild to moderate aortic valve stenosis. The peak aortic velocity is 2.81 m/s. The aortic valve area is 1.95 cm2. There is mild aortic valve regurgitation. Mitral Valve There is moderate mitral annular calcification. There is no mitral valve regurgitation. There is no mitral valve stenosis. Pulmonic Valve Normal pulmonic valve structure and function. There is trace pulmonic valve regurgitation. Tricuspid Valve Normal tricuspid valve structure. There is trace tricuspid valve regurgitation. Normal right atrial pressure. There is no evidence of pulmonary hypertension. Great Vessels All visible segments of the aorta are normal in size. The visualized portions of the pulmonary artery and branches are normal. Venous The inferior vena cava is normal in size and collapses greater than 50% with inspiration. Pericardium/Pleural There is no evidence of pericardial effusion. Prior Study Comparison No prior study available for comparison. Measurements 2D Linear Measurements IVSd: 1.20 0.6-0.9/0.6-1.0 cm LVIDd: 3.79 3.9-5.3/4.2-5.9 cm LVIDd Index: 2.04 2.4-3.2/2.2-3.1 cm/m2 LVIDs: 2.79 2.0-3.6 cm LVPWd: 1.18 0.7-1.1 cm Ao Root: 3.00 2.1-3.5 cm LA Diam: 3.60 2.7-3.8/3.0-4.0 cm LAIDs Index: 1.94 1.5-2.3 cm/m2 LV Mass: 187.66 67-162/88-224 g LV Mass Index: 100.89 43-95/49-115 g/m2 LVOT Diam: 2.20 3.0+(-)1.3 cm 2D Systolic Function EF 4C: 68.90 >55% EF 2C: 58.20 >55% EF BiP: 63.90 >55% Mitral Valve MV Pk E: 0.89 MV PK A: 1.40 MV Decel Time: 320.00 E/A: 0.60 E'Lateral: 7.94 E'Medial: 6.53 E/E' Med: 13.70 E/E' Lat: 11.20 PHT: 94.00 MVA PHT: 2.34 Decel Zapata: 2.79 Aortic Valve AoV Pk Mando: 2.81 AoV Mn Mando: 1.67 AoV VTI: 0.57 AoV Pk Grad: 32.00 Aov Mn Grad: 13.00 ELDER Cont.VTI: 1.95 AI Pk Mando: 4.11 AI Zapata: 1.78 LVOT LVOT Pk Mando: 1.48 LVOT Mn Mando: 0.87 LVOT VTI: 0.29 LVOT Pk Grad: 9.00 LVOT Mn Grad: 4.00 LVOT Diam: 2.20 LVOT Area: 3.80 Diastolic Function MV Pk E: 0.89 MV Pk A: 1.40 E/A: 0.60 E'Medial: 6.53 E/E' Med: 13.70 E' Laterial: 7.94 E/E' Lat: 11.20 Tricuspid Valve TR Pk Mando: 2.58 TR Pk Grad: 27.00 RA Press: 3.00 RVSP: 30.00 Great Vessels Aorta Ao Root-2D: 3.00 2.0-3.7 cm Ao Asc: 3.10 2.1-3.4 cm Ao Arch: 3.20 Updated in Other Vendor System with Status of Final Harman Rico MD electronically signed on 02/17/2021 4:05:20 PM with status of Final
[2021-02-17 14:47] LABS: Prothrombin Time 11.7 SEC (10.8-13.0)
--- NOTE | 2021-02-17 14:52 | P.PNIM_ITS ---
Subjective Subjective Date of Service: 02/17/21 Interval History: Seen in f/u for chest pain. presently without pain Review of Systems Gen: no fever Resp: no sob, no cough CV: no chest, no ESTES, no leg edema GI: No n/v, no abd pain Neuro: No confusion Physical Exam Vital Signs: Vital Signs: Last Vital Signs Temp 98 F 02/17/21 12:00 Pulse 82 02/17/21 12:00 Resp 20 02/17/21 10:52 BP 141/76 H 02/17/21 10:52 Pulse Ox 96 02/17/21 12:00 Body Mass Index 28.7 Constitutional Awake and Alert, No apparent distress Neck Supple, No lymphadenopathy Cardiovascular RRR, No M/R/G, S1 S2, No S3 S4, No pedal edema Respiratory Lungs clear, No respiratory distress Gastrointestinal Non tender, Non-distended Skin No rash Neurological Alert & oriented x3 Psychological Appropriate affect Objective Data Current Medications Generic Name Dose Route Start Last Admin Trade Name Freq PRN Reason Stop Dose Admin Acetaminophen 650 mg 02/17/21 00:11 Acetaminophen 325 Mg Tablet PO Q6H PRN Pain, Mild (Pain Scale 1-3) Aspirin 81 mg 02/17/21 09:00 02/17/21 08:03 Aspirin 81 Mg Tab.Chew PO 81 mg DAILY [facility] Administration Atorvastatin Calcium 20 mg 02/17/21 21:00 Atorvastatin Calcium 10 Mg Tablet PO BEDTIME [facility] Docusate Sodium 100 mg 02/17/21 00:11 Docusate Sodium 100 Mg Capsule PO DAILY PRN Constipation Enoxaparin Sodium 65 mg 02/17/21 13:45 Enoxaparin Sodium 80 Mg/0.8 Ml Syringe 1 mg/kg (65 mg) SUBCUT DAILY [facility] Ergocalciferol 1,250 mcg 02/26/21 09:00 Ergocalciferol (Vitamin D2) 1,250 Mcg Capsule PO Q336H [facility] Heparin Sodium (Porcine) 5,000 unit 02/17/21 01:00 02/17/21 12:58 Heparin Sodium,Porcine 5,000 Unit/Ml Vial SUBCUT 5,000 unit Q12H [facility] Administration Hydrochlorothiazide 25 mg 02/17/21 09:00 02/17/21 08:03 Hydrochlorothiazide 25 Mg Tablet PO 25 mg DAILY [facility] Administration Ceftriaxone Sodium 1 gm/ 50 mls @ 100 mls/hr 02/17/21 08:00 02/17/21 09:59 Sodium Chloride IV Infused Q24H [facility] Infusion Lorazepam 0.5 mg 02/17/21 00:11 Lorazepam 0.5 Mg Tablet PO DAILY PRN Anxiety Nifedipine 90 mg 02/17/21 09:00 02/17/21 08:02 Nifedipine Er 90 Mg Tab.Er.24 PO 90 mg DAILY [facility] Administration Protocol Omeprazole 20 mg 02/17/21 06:30 02/17/21 06:07 Omeprazole 20 Mg Capsule.Dr PO 20 mg DAILY@0630 [facility] Administration Ondansetron HCl 4 mg 02/17/21 00:11 Ondansetron Hcl 4 Mg/2 Ml Vial IVPUSH Q8H PRN Nausea and Vomiting Pharmacy Consult 1 each 02/16/21 10:56 Consult Rx Perform Med Rec MISCELLANE ONCE PRN Consult order Valsartan 160 mg 02/17/21 09:00 02/17/21 08:02 Valsartan 40 Mg Tablet PO 160 mg DAILY [facility] Administration Labs CBC & Chem 7: 02/17/21 05:34 02/17/21 05:34 Microbiology Microbiology Results: Microbiology 02/16/21 Unknown Urine clean catch - Clean Catch Midstream Urine Culture - Final Assessment and Plan (1) Chest pain: Status: Acute (2) Elevated troponin: Status: Acute (3) UTI (urinary tract infection): Status: Acute (4) Hypomagnesemia: Status: Acute Assessment and Plan: 85 yo Fm with hx of htn presents with complaints of CP # Chest pain with elevated trop--? related to tachycardia -Get echo -Lovenox for now -ASA -low dose Metoprolol -Statin # UTI - UA positive - reports frequency - will treat with ceftriaxone - follow cultures # Hypomagnesemia - repleted - Follow mag level # hypertension - elevated - continue home medications # hyperlipidemia - continue stat #Mild chronic hyperKalemia DVT prophylaxis heparin subQ
[2021-02-17] MEDS: Enoxaparin Sodium 80 MG/0.8 ML SYRINGE 65 MG SUBCUT (15:04)
--- NOTE | 2021-02-17 15:42 | PM.CNCAR ---
History of Present Illness History of Present Illness Date of Service: 02/17/21 Requesting physician: Prince Salazar Chief complaint: CHEST PAIN, ACS ro Narrative: 85-year-old female presenting for chest tightness shortness of breath. She has background history of hypertension, hyperlipidemia and chronic kidney disease. Four weeks ago she had lower chest squeezing sensation that lasted for bear and improved on its own. Yesterday she had recurrent chest discomfort which was squeezing sensation along with shortness of breath. This lasted approximately 1 hour. With these symptoms she presented to [facility]. Her ECG was normal. Her blood workup showed mildly abnormal troponin level. Her troponin level were 21, 25 and 17. She has been pain-free since then. Her blood pressure has been elevated. No bleeding issues. 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 [facility] Past Medical History Medical History Hyperlipidemia Hypertension Family History Family History Father Heart disease Mother No problems noted. Brother Heart disease Surgical History Surgical History Hammertoe, bilateral Total knee replacement status Social History Social History Alcohol intake: never Patient Tobacco Use Status: Former Tobacco user Tobacco use type: Cigarette Second Hand Smoke Exposure: No Use of substances other than those prescribed or required for medical reasons: No Advance Directives: Yes Advance Directives Information Provided: No Advance Directives on File: No Advance Directives Date on File: 02/17/21 service: No Meds Allergies Allergy/AdvReac Type Severity Reaction Status Date / Time No Known Drug Intolerances Allergy Unknown NOT Verified 09/30/20 09:39 APPLICABLE Active Medications: Current Medications Generic Name Dose Route Start Last Admin Trade Name Freq PRN Reason Stop Dose Admin Acetaminophen 650 mg 02/17/21 00:11 Acetaminophen 325 Mg Tablet PO Q6H PRN Pain, Mild (Pain Scale 1-3) Aspirin 81 mg 02/17/21 09:00 02/17/21 08:03 Aspirin 81 Mg Tab.Chew PO 81 mg DAILY [facility] Administration Atorvastatin Calcium 20 mg 02/17/21 21:00 Atorvastatin Calcium 10 Mg Tablet PO BEDTIME [facility] Docusate Sodium 100 mg 02/17/21 00:11 Docusate Sodium 100 Mg Capsule PO DAILY PRN Constipation Enoxaparin Sodium 65 mg 02/17/21 13:45 02/17/21 15:04 Enoxaparin Sodium 80 Mg/0.8 Ml Syringe 1 mg/kg (65 mg) 65 mg SUBCUT Administration DAILY [facility] Ergocalciferol 1,250 mcg 02/26/21 09:00 Ergocalciferol (Vitamin D2) 1,250 Mcg Capsule PO Q336H [facility] Heparin Sodium (Porcine) 5,000 unit 02/17/21 01:00 02/17/21 12:58 Heparin Sodium,Porcine 5,000 Unit/Ml Vial SUBCUT 5,000 unit Q12H [facility] Administration Hydrochlorothiazide 25 mg 02/17/21 09:00 02/17/21 08:03 Hydrochlorothiazide 25 Mg Tablet PO 25 mg DAILY [facility] Administration Ceftriaxone Sodium 1 gm/ 50 mls @ 100 mls/hr 02/17/21 08:00 02/17/21 09:59 Sodium Chloride IV Infused Q24H [facility] Infusion Magnesium Sulfate 2 gm in 50 mls @ 25 mls/hr 02/17/21 15:36 Magnesium Sulfate/H2o IV 02/17/21 17:35 ONCE ONE Lorazepam 0.5 mg 02/17/21 00:11 Lorazepam 0.5 Mg Tablet PO DAILY PRN Anxiety Nifedipine 90 mg 02/17/21 09:00 02/17/21 08:02 Nifedipine Er 90 Mg Tab.Er.24 PO 90 mg DAILY [facility] Administration Protocol Omeprazole 20 mg 02/17/21 06:30 02/17/21 06:07 Omeprazole 20 Mg Capsule.Dr PO 20 mg DAILY@0630 [facility] Administration Ondansetron HCl 4 mg 02/17/21 00:11 Ondansetron Hcl 4 Mg/2 Ml Vial IVPUSH Q8H PRN Nausea and Vomiting Pharmacy Consult 1 each 02/16/21 10:56 Consult Rx Perform Med Rec MISCELLANE ONCE PRN Consult order Valsartan 160 mg 02/17/21 09:00 02/17/21 08:02 Valsartan 40 Mg Tablet PO 160 mg DAILY [facility] Administration Home Medications Medication Instructions Recorded Confirmed Last Taken Type ergocalciferol (vitamin D2) 1,250 1,250 mcg PO Q2W 01/15/21 06/03/21 05/30/21 History mcg (50,000 unit) capsule simvastatin 20 mg tablet 20 mg PO BEDTIME 09/30/20 02/16/21 Unknown History aspirin 81 mg PO DAILY 02/16/21 02/16/21 Unknown History lorazepam 0.5 mg PO DAILY PRN 02/16/21 02/16/21 Unknown History nifedipine 90 mg PO DAILY 02/16/21 02/16/21 Unknown History pantoprazole 40 mg PO DAILY@0630 02/16/21 02/16/21 02/16/21 History psyllium husk [Metamucil] 1.04 g PO BEDTIME 02/16/21 02/16/21 Unknown History Physical Exam Vital Signs: Vital Signs: Last Vital Signs Temp 97.2 F 02/17/21 15:10 Pulse 60 02/17/21 15:10 Resp 20 02/17/21 15:10 BP 152/69 H 02/17/21 15:10 Pulse Ox 97 02/17/21 15:10 Body Mass Index 28.7 GENERAL APPEARANCE: in no acute distress, pleasant. NECK: no carotid bruit, no jugular venous distention. SKIN: no suspicious lesions, warm and dry. HEART: Systolic murmur, regular rate and rhythm. LUNGS: clear to auscultation bilaterally. ABDOMEN: soft, nontender. EXTREMITIES: no edema. PERIPHERAL PULSES: equal. NEUROLOGIC: No gross deficits, AAO X 3 Results Labs and Meds Result diagrams: 02/17/21 05:34 02/17/21 05:34 Lab results: Laboratory Results - last 24 hr 02/16/21 02/16/21 02/16/21 15:00 15:13 22:20 WBC RBC Hgb Hct MCV MCH MCHC RDW Plt Count MPV Immature Gran % (Auto) Neut % (Auto) Lymph % (Auto) Towner % (Auto) Eos % (Auto) Baso % (Auto) Lymph # (Auto) Towner # (Auto) Eos # (Auto) Baso # (Auto) Abs Immat Gran (auto) Absolute Neuts (auto) Absolute Nucleated RBC Nucleated RBC % (auto) PT INR Sodium Potassium Chloride Carbon Dioxide Anion Gap BUN Creatinine Estim Creat Clear Calc Estimated GFR Random Glucose Calcium Total Bilirubin 0.5 Direct Bilirubin 0.2 AST 155 H ALT 112 H Alkaline Phosphatase 122 H Troponin I High Sens 21.6 H* D 25.9 H* Total Protein 6.8 Albumin 4.2 02/17/21 02/17/21 02/17/21 05:34 05:34 09:33 WBC 3.6 L RBC 3.44 L Hgb 10.6 L Hct 32.0 L MCV 93.0 MCH 30.8 MCHC 33.1 RDW 12.4 Plt Count 225 MPV 10.2 Immature Gran % (Auto) 0.3 Neut % (Auto) 59.4 Lymph % (Auto) 24.2 Towner % (Auto) 12.1 H Eos % (Auto) 3.4 Baso % (Auto) 0.6 Lymph # (Auto) 0.9 L Towner # (Auto) 0.4 Eos # (Auto) 0.1 Baso # (Auto) 0.0 Abs Immat Gran (auto) 0.01 Absolute Neuts (auto) 2.1 Absolute Nucleated RBC 0.000 Nucleated RBC % (auto) 0.0 PT INR Sodium 141 Potassium 5.2 H Chloride 111 H Carbon Dioxide 22 Anion Gap 13 BUN 31 H Creatinine 1.21 Estim Creat Clear Calc 29.4 Estimated GFR 42 Random Glucose 84 Calcium 9.4 Total Bilirubin Direct Bilirubin AST ALT Alkaline Phosphatase Troponin I High Sens 17.2 H* Total Protein Albumin 02/17/21 14:19 WBC RBC Hgb Hct MCV MCH MCHC RDW Plt Count MPV Immature Gran % (Auto) Neut % (Auto) Lymph % (Auto) Towner % (Auto) Eos % (Auto) Baso % (Auto) Lymph # (Auto) Towner # (Auto) Eos # (Auto) Baso # (Auto) Abs Immat Gran (auto) Absolute Neuts (auto) Absolute Nucleated RBC Nucleated RBC % (auto) PT 11.7 INR 1.0 Sodium Potassium Chloride Carbon Dioxide Anion Gap BUN Creatinine Estim Creat Clear Calc Estimated GFR Random Glucose Calcium Total Bilirubin Direct Bilirubin AST ALT Alkaline Phosphatase Troponin I High Sens Total Protein Albumin Assessment and Plan (1) Hypomagnesemia: Status: Acute (2) Hypertension: Status: Acute (3) NSTEMI (non-ST elevated myocardial infarction): Status: Acute 85-year-old female who is presenting with chest tightness and shortness of breath. A troponin levels are mildly abnormal. Blood pressure was elevated and continues to be mildly elevated. Clinically the story sounds suspicious for coronary artery disease and acute coronary syndrome. We discussed in detail about management options including cardiac catheterization versus medical management. She opted for medical management for now. We will give her therapeutic Lovenox. I will check echocardiogram to assess left ventricular function. If she had any major wall motion abnormalities then we will discuss about cardiac catheterization again. I am adding Plavix 75 mg once a day.. Adding Imdur 30 mg once a day for blood pressure control and has anti anginal. Thank you for allowing me to participate in the care of your patient. Please feel free to contact me if you have any questions. Procedures Date of Service Date of Service: 02/17/21
[2021-02-17] MEDS: Isosorbide Mononitrate 30 MG TAB.ER.24H PO (16:26)
[2021-02-17] MEDS: Magnesium Sulfate/H2O 2 GM/50 ML PIGGYBACK IV (16:26)
[2021-02-17] MEDS: Clopidogrel Bisulfate 300 MG TABLET PO (16:26)
[2021-02-17] MEDS: Atorvastatin Calcium 10 MG TABLET 20 MG PO (21:05)
[2021-02-18] MEDS: Acetaminophen 325 MG TABLET 650 MG PO (03:54)
[2021-02-18 04:00] VITALS: BP 118/58; PULSE 57; RESP 18; TEMP 36.7; O2SAT 96
[2021-02-18] MEDS: Omeprazole 20 MG CAPSULE.DR PO (05:46)
[2021-02-18 06:59] VITALS: BP 129/63; PULSE 55; RESP 18; TEMP 35.7; O2SAT 96
[2021-02-18] MEDS: Valsartan 40 MG TABLET 160 MG PO (08:14)
[2021-02-18] MEDS: hydroCHLOROthiazide 25 MG TABLET PO (08:14)
[2021-02-18] MEDS: cefTRIAXone sodium 1 GM in 0.9 % Sodium Chloride 50 ML IV (08:14)
[2021-02-18] MEDS: NIFEdipine ER 90 MG TAB.ER.24 PO (08:15)
[2021-02-18] MEDS: Aspirin 81 MG TAB.CHEW PO (08:15)
[2021-02-18] MEDS: Clopidogrel Bisulfate 75 MG TABLET PO (08:15)
[2021-02-18] MEDS: Isosorbide Mononitrate 30 MG TAB.ER.24H PO (08:15)
[2021-02-18] MEDS: Enoxaparin Sodium 80 MG/0.8 ML SYRINGE 65 MG SUBCUT (08:15)
--- NOTE | 2021-02-18 10:40 | P.PNCA_ITS ---
Subjective Subjective Date of Service: 02/18/21 Interval history: Feeling well. no more CP. On Lovenox, ASA and Plavix. Physical Exam Vital Signs: Last Vital Signs Temp 96.2 F L 02/18/21 06:59 Pulse 55 02/18/21 06:59 Resp 18 02/18/21 06:59 BP 129/63 02/18/21 06:59 Pulse Ox 96 02/18/21 06:59 Body Mass Index 28.7 GENERAL APPEARANCE: in no acute distress, pleasant. NECK: no carotid bruit, no jugular venous distention. SKIN: no suspicious lesions, warm and dry. HEART: Systolic murmur, regular rate and rhythm. LUNGS: clear to auscultation bilaterally. ABDOMEN: soft, nontender. EXTREMITIES: no edema. PERIPHERAL PULSES: equal. NEUROLOGIC: No gross deficits, AAO X 3 Results Labs and Meds Result diagrams: 02/17/21 05:34 02/17/21 05:34 Lab results: Laboratory Results - last 24 hr 02/17/21 14:19 PT 11.7 INR 1.0 Progress Note: A&P Assessment and plan (1) NSTEMI (non-ST elevated myocardial infarction): Status: Acute (2) Hypertension: Status: Acute Assessment and Plan: Pleasant 85 year female with background of hypertension and hyperlipidemia who presented with central chest tightness and shortness of breath. ECG was normal. She had mildly abnormal troponin level. Clinically story was concerning for acute coronary syndrome and she was started on Lovenox aspirin and Plavix. I discussed with her about medical management versus cardiac catheterization and she opted for medical management. Echocardiography was performed which showed normal function without any significant wall motion abnormalities. We will do stress test on Saturday morning. If it showed high-risk features then I will discuss cardiac catheterization again and potentially transfer to [facility]. On the other hand if the stress test is normal then she will go home. Blood pressure is better with addition of isosorbide. Thank you for allowing me to participate in the care of your patient. Please feel free to contact me if you have any questions. Fall Risk Details Current Medications: Current Medications Generic Name Dose Route Start Last Admin Trade Name Freq PRN Reason Stop Dose Admin Acetaminophen 650 mg 02/17/21 00:11 02/18/21 03:54 Acetaminophen 325 Mg Tablet PO 650 mg Q6H PRN Administration Pain, Mild (Pain Scale 1-3) Aspirin 81 mg 02/17/21 09:00 02/18/21 08:15 Aspirin 81 Mg Tab.Chew PO 81 mg DAILY [facility] Administration Atorvastatin Calcium 20 mg 02/17/21 21:00 02/17/21 21:05 Atorvastatin Calcium 10 Mg Tablet PO 20 mg BEDTIME [facility] Administration Clopidogrel Bisulfate 75 mg 02/18/21 09:00 02/18/21 08:15 Clopidogrel Bisulfate 75 Mg Tablet PO 75 mg DAILY [facility] Administration Docusate Sodium 100 mg 02/17/21 00:11 Docusate Sodium 100 Mg Capsule PO DAILY PRN Constipation Enoxaparin Sodium 65 mg 02/17/21 13:45 02/18/21 08:15 Enoxaparin Sodium 80 Mg/0.8 Ml Syringe 1 mg/kg (65 mg) 65 mg SUBCUT Administration DAILY [facility] Ergocalciferol 1,250 mcg 02/26/21 09:00 Ergocalciferol (Vitamin D2) 1,250 Mcg Capsule PO Q336H [facility] Hydrochlorothiazide 25 mg 02/17/21 09:00 02/18/21 08:14 Hydrochlorothiazide 25 Mg Tablet PO 25 mg DAILY [facility] Administration Ceftriaxone Sodium 1 gm/ 50 mls @ 100 mls/hr 02/17/21 08:00 02/18/21 08:59 Sodium Chloride IV Infused Q24H [facility] Infusion Isosorbide Mononitrate 30 mg 02/17/21 16:00 02/18/21 08:15 Isosorbide Mononitrate 30 Mg Tab.Er.24h PO 30 mg DAILY [facility] Administration Protocol Lorazepam 0.5 mg 02/17/21 00:11 Lorazepam 0.5 Mg Tablet PO DAILY PRN Anxiety Nifedipine 90 mg 02/17/21 09:00 02/18/21 08:15 Nifedipine Er 90 Mg Tab.Er.24 PO 90 mg DAILY [facility] Administration Protocol Omeprazole 20 mg 02/17/21 06:30 02/18/21 05:46 Omeprazole 20 Mg Capsule.Dr PO 20 mg DAILY@0630 [facility] Administration Ondansetron HCl 4 mg 02/17/21 00:11 Ondansetron Hcl 4 Mg/2 Ml Vial IVPUSH Q8H PRN Nausea and Vomiting Pharmacy Consult 1 each 02/16/21 10:56 Consult Rx Perform Med Rec MISCELLANE ONCE PRN Consult order Valsartan 160 mg 02/17/21 09:00 02/18/21 08:14 Valsartan 40 Mg Tablet PO 160 mg DAILY [facility] Administration Time Spent With Patient Time: Total time spent is greater than 50% in coordination of care (as documented) at patient's floor/unit and/or counseling patient: Time with patient: 15 - 24 minutes Procedures Date of Service Date of Service: 02/18/21
[2021-02-18 11:06] VITALS: BP 108/62; PULSE 65; RESP 18; TEMP 36.2; O2SAT 97
--- NOTE | 2021-02-18 12:43 | HO.PM.IMPN ---
Subjective Subjective Date of Service: 02/18/21 Interval History: Seen in f/u for chest pain with increased in trop, no chest pain right now Review of Systems Gen: no fever Resp: no sob, no cough CV: no chest, no ESTES, no leg edema GI: No n/v, no abd pain Neuro: No confusion Physical Exam Vital Signs: Vital Signs: Last Vital Signs Temp 97.1 F 02/18/21 11:06 Pulse 65 02/18/21 11:06 Resp 18 02/18/21 11:06 BP 108/62 02/18/21 11:06 Pulse Ox 97 02/18/21 11:06 Body Mass Index 28.7 Const: Other: General: AO X 3, no acute distress Resp: CTA bilateral CVS: S1,S2,RRR GI: +BS, NT, no distention Skin: No rash Neuro: motor grossly intact Psych: appropriate affect Objective Data Current Medications Generic Name Dose Route Start Last Admin Trade Name Freq PRN Reason Stop Dose Admin Acetaminophen 650 mg 02/17/21 00:11 02/18/21 03:54 Acetaminophen 325 Mg Tablet PO 650 mg Q6H PRN Administration Pain, Mild (Pain Scale 1-3) Aspirin 81 mg 02/17/21 09:00 02/18/21 08:15 Aspirin 81 Mg Tab.Chew PO 81 mg DAILY [facility] Administration Atorvastatin Calcium 20 mg 02/17/21 21:00 02/17/21 21:05 Atorvastatin Calcium 10 Mg Tablet PO 20 mg BEDTIME [facility] Administration Clopidogrel Bisulfate 75 mg 02/18/21 09:00 02/18/21 08:15 Clopidogrel Bisulfate 75 Mg Tablet PO 75 mg DAILY [facility] Administration Docusate Sodium 100 mg 02/17/21 00:11 Docusate Sodium 100 Mg Capsule PO DAILY PRN Constipation Enoxaparin Sodium 65 mg 02/17/21 13:45 02/18/21 08:15 Enoxaparin Sodium 80 Mg/0.8 Ml Syringe 1 mg/kg (65 mg) 65 mg SUBCUT Administration DAILY [facility] Ergocalciferol 1,250 mcg 02/26/21 09:00 Ergocalciferol (Vitamin D2) 1,250 Mcg Capsule PO Q336H [facility] Hydrochlorothiazide 25 mg 02/17/21 09:00 02/18/21 08:14 Hydrochlorothiazide 25 Mg Tablet PO 25 mg DAILY [facility] Administration Ceftriaxone Sodium 1 gm/ 50 mls @ 100 mls/hr 02/17/21 08:00 02/18/21 08:59 Sodium Chloride IV Infused Q24H [facility] Infusion Isosorbide Mononitrate 30 mg 02/17/21 16:00 02/18/21 08:15 Isosorbide Mononitrate 30 Mg Tab.Er.24h PO 30 mg DAILY [facility] Administration Protocol Lorazepam 0.5 mg 02/17/21 00:11 Lorazepam 0.5 Mg Tablet PO DAILY PRN Anxiety Nifedipine 90 mg 02/17/21 09:00 02/18/21 08:15 Nifedipine Er 90 Mg Tab.Er.24 PO 90 mg DAILY [facility] Administration Protocol Omeprazole 20 mg 02/17/21 06:30 02/18/21 05:46 Omeprazole 20 Mg Capsule.Dr PO 20 mg DAILY@0630 [facility] Administration Ondansetron HCl 4 mg 02/17/21 00:11 Ondansetron Hcl 4 Mg/2 Ml Vial IVPUSH Q8H PRN Nausea and Vomiting Pharmacy Consult 1 each 02/16/21 10:56 Consult Rx Perform Med Rec MISCELLANE ONCE PRN Consult order Valsartan 160 mg 02/17/21 09:00 02/18/21 08:14 Valsartan 40 Mg Tablet PO 160 mg DAILY [facility] Administration Labs CBC & Chem 7: 02/17/21 05:34 02/17/21 05:34 Microbiology Microbiology Results: Microbiology 02/16/21 Unknown Urine clean catch - Clean Catch Midstream Urine Culture - Final Assessment and Plan (1) Chest pain: Status: Acute (2) Elevated troponin: Status: Acute (3) UTI (urinary tract infection): Status: Acute (4) Hypomagnesemia: Status: Acute Assessment and Plan: 85 yo Fm with hx of htn presents with complaints of CP # Chest pain with elevated trop, NSTE/UA -Get echo -Lovenox for now -ASA, Plavix -low dose Metoprolol -Statin -Stress on Tuesday 02/20 # UTI - UA positive - reports frequency - will treat with ceftriaxone - follow cultures # Hypomagnesemia - repleted - Follow mag level # hypertension - elevated - continue home medications # hyperlipidemia - continue stat #Mild chronic hyperKalemia DVT prophylaxis heparin subQ
[2021-02-18 14:28] LABS: Anion Gap 16 (12-20); Blood Urea Nitrogen 40 mg/dL (9-16); Calcium 9.7 mg/dL (8.4-10.2); Carbon Dioxide 21 mmol/L (22-29); Chloride 108 mmol/L (96-108); Creatinine Clr Calc Pharmacy 21.2; Estimated Glomerular Filt Rate 29; Glucose Random 115 mg/dL (60-115); Magnesium 2.2 mg/dL (1.6-2.6); Potassium 4.9 mmol/L (3.3-5.1); Sodium 140 mmol/L (135-145)
[2021-02-18 15:22] VITALS: BP 98/54; PULSE 52; RESP 18; TEMP 36.1; O2SAT 96
[2021-02-18 19:50] VITALS: BP 136/64; PULSE 60; RESP 18; TEMP 36.7; O2SAT 95
[2021-02-18] MEDS: Atorvastatin Calcium 10 MG TABLET 20 MG PO (20:02)
[2021-02-18 23:57] VITALS: BP 94/51; PULSE 54; RESP 16; TEMP 36.6; O2SAT 92
[2021-02-19] MEDS: Acetaminophen 325 MG TABLET 650 MG PO ×2 (00:26→21:26)
[2021-02-19 04:00] VITALS: BP 125/62; PULSE 51; RESP 18; TEMP 36.7; O2SAT 95
[2021-02-19] MEDS: Omeprazole 20 MG CAPSULE.DR PO (06:13)
[2021-02-19 06:56] VITALS: BP 150/67; PULSE 54; RESP 18; TEMP 36.1; O2SAT 97
[2021-02-19] MEDS: NIFEdipine ER 90 MG TAB.ER.24 PO (08:39)
[2021-02-19] MEDS: Clopidogrel Bisulfate 75 MG TABLET PO (08:39)
[2021-02-19] MEDS: Aspirin 81 MG TAB.CHEW PO (08:40)
[2021-02-19] MEDS: hydroCHLOROthiazide 25 MG TABLET PO (08:40)
[2021-02-19] MEDS: Isosorbide Mononitrate 30 MG TAB.ER.24H PO (08:40)
[2021-02-19] MEDS: Enoxaparin Sodium 80 MG/0.8 ML SYRINGE 65 MG SUBCUT (08:41)
[2021-02-19] MEDS: cefTRIAXone sodium 1 GM in 0.9 % Sodium Chloride 50 ML IV (08:42)
[2021-02-19 10:53] VITALS: BP 101/52; PULSE 66; RESP 18; TEMP 35.8; O2SAT 97
--- NOTE | 2021-02-19 11:26 | P.PNIM_ITS ---
Subjective Subjective Date of Service: 02/19/21 Interval History: Seen in f/u for chest pain with increased in trop, no chest pain or sob Review of Systems Gen: no fever Resp: no sob, no cough CV: no chest, no ESTES, no leg edema GI: No n/v, no abd pain Neuro: No confusion Physical Exam Vital Signs: Vital Signs: Last Vital Signs Temp 96.4 F L 02/19/21 10:53 Pulse 66 02/19/21 10:53 Resp 18 02/19/21 10:53 BP 101/52 L 02/19/21 10:53 Pulse Ox 97 02/19/21 10:53 Body Mass Index 28.7 Const: Other: General: AO X 3, no acute distress Resp: CTA bilateral CVS: S1,S2,RRR GI: +BS, NT, no distention Skin: No rash Neuro: motor grossly intact Psych: appropriate affect Objective Data Current Medications Generic Name Dose Route Start Last Admin Trade Name Freq PRN Reason Stop Dose Admin Acetaminophen 650 mg 02/17/21 00:11 02/19/21 00:26 Acetaminophen 325 Mg Tablet PO 650 mg Q6H PRN Administration Pain, Mild (Pain Scale 1-3) Aspirin 81 mg 02/17/21 09:00 02/19/21 08:40 Aspirin 81 Mg Tab.Chew PO 81 mg DAILY [facility] Administration Atorvastatin Calcium 20 mg 02/17/21 21:00 02/18/21 20:02 Atorvastatin Calcium 10 Mg Tablet PO 20 mg BEDTIME [facility] Administration Clopidogrel Bisulfate 75 mg 02/18/21 09:00 02/19/21 08:39 Clopidogrel Bisulfate 75 Mg Tablet PO 75 mg DAILY [facility] Administration Docusate Sodium 100 mg 02/17/21 00:11 Docusate Sodium 100 Mg Capsule PO DAILY PRN Constipation Ergocalciferol 1,250 mcg 02/26/21 09:00 Ergocalciferol (Vitamin D2) 1,250 Mcg Capsule PO Q336H [facility] Hydrochlorothiazide 25 mg 02/17/21 09:00 02/19/21 08:40 Hydrochlorothiazide 25 Mg Tablet PO 25 mg DAILY [facility] Administration Ceftriaxone Sodium 1 gm/ 50 mls @ 100 mls/hr 02/17/21 08:00 02/19/21 09:25 Sodium Chloride IV Infused Q24H [facility] Infusion Sodium Chloride 1,000 mls @ 100 mls/hr 02/19/21 11:00 Ns IVCONT .Q10H [facility] Isosorbide Mononitrate 30 mg 02/17/21 16:00 02/19/21 08:40 Isosorbide Mononitrate 30 Mg Tab.Er.24h PO 30 mg DAILY [facility] Administration Protocol Lorazepam 0.5 mg 02/17/21 00:11 Lorazepam 0.5 Mg Tablet PO DAILY PRN Anxiety Nifedipine 90 mg 02/17/21 09:00 02/19/21 08:39 Nifedipine Er 90 Mg Tab.Er.24 PO 90 mg DAILY [facility] Administration Protocol Omeprazole 20 mg 02/17/21 06:30 02/19/21 06:13 Omeprazole 20 Mg Capsule.Dr PO 20 mg DAILY@0630 [facility] Administration Ondansetron HCl 4 mg 02/17/21 00:11 Ondansetron Hcl 4 Mg/2 Ml Vial IVPUSH Q8H PRN Nausea and Vomiting Pharmacy Consult 1 each 02/16/21 10:56 Consult Rx Perform Med Rec MISCELLANE ONCE PRN Consult order Labs CBC & Chem 7: 02/17/21 05:34 02/18/21 13:01 Microbiology Microbiology Results: Microbiology 02/16/21 Unknown Urine clean catch - Clean Catch Midstream Urine Culture - Final Assessment and Plan (1) Chest pain: Status: Acute (2) Elevated troponin: Status: Acute (3) UTI (urinary tract infection): Status: Acute (4) Hypomagnesemia: Status: Acute Assessment and Plan: 85 yo Fm with hx of htn presents with complaints of CP # Chest pain with elevated trop, NSTE/UA -Get echo -Lovenox -ASA, Plavix -low dose Metoprolol -Statin -Stress on Tuesday 02/20 # UTI - UA positive - reports frequency - will treat with ceftriaxone - follow cultures # Hypomagnesemia - repleted - Follow mag level # hypertension - elevated - continue home medications # hyperlipidemia - continue stat #Mild chronic hyperKalemia--check lab today DVT prophylaxis heparin subQ
[2021-02-19] MEDS: 0.9 % Sodium Chloride 1,000 ML 100 ML IVCONT ×2 (11:35→23:04)
[2021-02-19 11:56] LABS: Hematocrit 35.1 % (37-47); Hemoglobin 11.5 g/dl (12.0-16.0); Mean Corpuscular HGB Conc 32.8 g/dl (31.0-35.0); Mean Corpuscular Hemoglobin 30.5 pg (27.0-33.0); Mean Corpuscular Volume 93.1 fL (80-98); Mean Platelet Volume 9.8 fL (9.4-12.3); Platelet Count 228 X10*3/uL (160-400); Red Blood Count 3.77 X10*6/uL (4.20-5.50); Red Cell Distribution Width 12.4 % (11.0-16.0); White Blood Count 4.6 X10*3/uL (4.8-10.8)
[2021-02-19 12:12] LABS: Anion Gap 14 (12-20); Blood Urea Nitrogen 43 mg/dL (9-16); Calcium 9.7 mg/dL (8.4-10.2); Carbon Dioxide 21 mmol/L (22-29); Chloride 110 mmol/L (96-108); Creatinine Clr Calc Pharmacy 21.4; Estimated Glomerular Filt Rate 29; Glucose Random 101 mg/dL (60-115); Potassium 4.8 mmol/L (3.3-5.1); Sodium 140 mmol/L (135-145)
--- NOTE | 2021-02-19 13:04 | P.PNCA_ITS ---
Subjective Subjective Date of Service: 02/19/21 Interval history: No more chest pain. She has developed acute kidney injury. ARB was held. Physical Exam Vital Signs: Last Vital Signs Temp 96.4 F L 02/19/21 10:53 Pulse 66 02/19/21 10:53 Resp 18 02/19/21 10:53 BP 101/52 L 02/19/21 10:53 Pulse Ox 97 02/19/21 10:53 Body Mass Index 28.7 GENERAL APPEARANCE: in no acute distress, pleasant. NECK: no carotid bruit, no jugular venous distention. SKIN: no suspicious lesions, warm and dry. HEART: Systolic murmur, regular rate and rhythm. LUNGS: clear to auscultation bilaterally. ABDOMEN: soft, nontender. EXTREMITIES: no edema. PERIPHERAL PULSES: equal. NEUROLOGIC: No gross deficits, AAO X 3 Results Labs and Meds Result diagrams: 02/19/21 11:34 02/19/21 11:34 Lab results: Laboratory Results - last 24 hr 02/18/21 02/19/21 02/19/21 13:01 11:34 11:34 WBC 4.6 L RBC 3.77 L Hgb 11.5 L Hct 35.1 L MCV 93.1 MCH 30.5 MCHC 32.8 RDW 12.4 Plt Count 228 MPV 9.8 Absolute Nucleated RBC 0.000 Nucleated RBC % (auto) 0.0 Sodium 140 140 Potassium 4.9 4.8 Chloride 108 110 H Carbon Dioxide 21 L 21 L Anion Gap 16 14 BUN 40 H 43 H Creatinine 1.68 H 1.66 H Estim Creat Clear Calc 21.2 21.4 Estimated GFR 29 29 Random Glucose 115 D 101 Calcium 9.7 9.7 Magnesium 2.2 Progress Note: A&P Assessment and plan (1) NSTEMI (non-ST elevated myocardial infarction): Status: Acute (2) GERONIMO (acute kidney injury): Status: Acute Assessment and Plan: Pleasant 85-year-old female who presented for chest discomfort and non ST elevation ID. After discussion she was started on Lovenox aspirin Plavix. Blood pressure was elevated and Imdur 30 mg once a day was added. It appears she has some fluctuation blood pressures since then and today her creatinine has worsened. H er ARB was held. She is getting some IV fluids. Will do exercise stress test tomorrow. If she does well on stress testing then potentially home with aspirin and Plavix. On the other hand if she has significantly abnormal stress testing then we may have to consider invasive approach in her. She has completely 48 hours of enoxaparin and has been stopped. Thank you for allowing me to participate in the care of your patient. Please feel free to contact me if you have any questions. Fall Risk Details Current Medications: Current Medications Generic Name Dose Route Start Last Admin Trade Name Freq PRN Reason Stop Dose Admin Acetaminophen 650 mg 02/17/21 00:11 02/19/21 00:26 Acetaminophen 325 Mg Tablet PO 650 mg Q6H PRN Administration Pain, Mild (Pain Scale 1-3) Aspirin 81 mg 02/17/21 09:00 02/19/21 08:40 Aspirin 81 Mg Tab.Chew PO 81 mg DAILY [facility] Administration Atorvastatin Calcium 20 mg 02/17/21 21:00 02/18/21 20:02 Atorvastatin Calcium 10 Mg Tablet PO 20 mg BEDTIME [facility] Administration Clopidogrel Bisulfate 75 mg 02/18/21 09:00 02/19/21 08:39 Clopidogrel Bisulfate 75 Mg Tablet PO 75 mg DAILY [facility] Administration Docusate Sodium 100 mg 02/17/21 00:11 Docusate Sodium 100 Mg Capsule PO DAILY PRN Constipation Ergocalciferol 1,250 mcg 02/26/21 09:00 Ergocalciferol (Vitamin D2) 1,250 Mcg Capsule PO Q336H [facility] Hydrochlorothiazide 25 mg 02/17/21 09:00 02/19/21 08:40 Hydrochlorothiazide 25 Mg Tablet PO 25 mg DAILY [facility] Administration Ceftriaxone Sodium 1 gm/ 50 mls @ 100 mls/hr 02/17/21 08:00 02/19/21 09:25 Sodium Chloride IV Infused Q24H [facility] Infusion Sodium Chloride 1,000 mls @ 100 mls/hr 02/19/21 11:00 02/19/21 11:35 Ns IVCONT 100 mls/hr .Q10H [facility] Administration Isosorbide Mononitrate 30 mg 02/17/21 16:00 02/19/21 08:40 Isosorbide Mononitrate 30 Mg Tab.Er.24h PO 30 mg DAILY [facility] Administration Protocol Lorazepam 0.5 mg 02/17/21 00:11 Lorazepam 0.5 Mg Tablet PO DAILY PRN Anxiety Nifedipine 90 mg 02/17/21 09:00 02/19/21 08:39 Nifedipine Er 90 Mg Tab.Er.24 PO 90 mg DAILY [facility] Administration Protocol Omeprazole 20 mg 02/17/21 06:30 02/19/21 06:13 Omeprazole 20 Mg Capsule.Dr PO 20 mg DAILY@0630 [facility] Administration Ondansetron HCl 4 mg 02/17/21 00:11 Ondansetron Hcl 4 Mg/2 Ml Vial IVPUSH Q8H PRN Nausea and Vomiting Pharmacy Consult 1 each 02/16/21 10:56 Consult Rx Perform Med Rec MISCELLANE ONCE PRN Consult order Time Spent With Patient Time: Total time spent is greater than 50% in coordination of care (as documented) at patient's floor/unit and/or counseling patient: Time with patient: 25 - 35 minutes Procedures Date of Service Date of Service: 02/19/21
[2021-02-19 15:14] VITALS: BP 105/53; PULSE 53; RESP 18; TEMP 36.5; O2SAT 94
[2021-02-19 20:00] VITALS: BP 139/65; PULSE 61; RESP 18; TEMP 36.6; O2SAT 96
[2021-02-19] MEDS: Atorvastatin Calcium 10 MG TABLET 20 MG PO (21:23)
[2021-02-19] MEDS: LORazepam 0.5 MG TABLET PO (21:26)
[2021-02-19 23:35] VITALS: BP 141/56; PULSE 55; RESP 18; TEMP 36.4; O2SAT 94
--- NOTE | 2021-02-20 | CA_ITS ---
Acquisition Time: 2021-02-20 10:26:35 Total Exercise Time: 00:02:00 Test Indications: Chest Pain Medications: Protocol: LEXISCAN Max HR: 101 BPM 74% of Pred: 136 BPM Max BP: 144/060 mmHG Max Work Load: 1.0 METS Pharmacological stress test with Lexsican injection, while sitting and kicking her legs, without anginal symptoms, without arrythmia, with normotensive response to injection, with nondiagnostic EKG for ischemia. In recovery she reported headache that was treated with Aminphylline 75mg IVP to reverse Lexiscan with improvement in symptom. Nuclear images pending. Test reviewed with Dr Quinn. Referred By: Sloane Sandra Overread By: SLOANE SANDRA
[2021-02-20 03:21] VITALS: BP 159/67; PULSE 66; RESP 18; TEMP 35.7; O2SAT 94
[2021-02-20 07:41] VITALS: BP 182/78; PULSE 65; RESP 18; TEMP 36.3; O2SAT 98
[2021-02-20] MEDS: cefTRIAXone sodium 1 GM in 0.9 % Sodium Chloride 50 ML IV (08:10)
[2021-02-20] MEDS: Isosorbide Mononitrate 30 MG TAB.ER.24H PO (08:19)
[2021-02-20] MEDS: Aspirin 81 MG TAB.CHEW PO (08:19)
[2021-02-20] MEDS: hydroCHLOROthiazide 25 MG TABLET PO (08:19)
[2021-02-20] MEDS: NIFEdipine ER 90 MG TAB.ER.24 PO (08:19)
[2021-02-20] MEDS: Clopidogrel Bisulfate 75 MG TABLET PO (08:19)
--- NOTE | 2021-02-20 11:11 | P.PNCA_ITS ---
Subjective Subjective Date of Service: 02/20/21 Principal diagnosis: ACS Interval history: Patient not having any chest pain at current time. Plan for stress perfusion imaging today. Blood pressure is extremely labile. Creatinine remains elevated. Review of Systems Constitutional: Reports no additional constitutional complaints Cardiovascular: Reports no additional cardiovascular complaints Gastrointestinal: Reports no additional gastrointestinal complaints Genitourinary: Reports no additional female genitourinary complaints Psychiatric: Reports no additional psychiatric complaints Endocrine: Reports no additional endocrine complaints Physical Exam Vital Signs: Last Vital Signs Temp 97.4 F 02/20/21 07:41 Pulse 65 02/20/21 07:41 Resp 18 02/20/21 07:41 BP 182/78 H 02/20/21 07:41 Pulse Ox 98 02/20/21 07:41 Body Mass Index 28.7 Const General: cooperative, comfortable, no acute distress, alert and awake Nutritional Appearance: overweight Orientation/consciousness: patient oriented x3 Limitations: no limitations Neck Neck: Yes trachea midline, Yes supple and Yes no JVD Resp Effort & Inspection: normal respiratory effort Auscultation: clear to auscultation bilaterally Cardio Jugular venous distension: no JVD Rate: regular rate Rhythm: regular rhythm Heart sounds: S1 normal heart sound present, S2 normal heart sound present and Murmur heart sound present systolic early, decrescendo and crescendo GI Auscultation: normal bowel sounds Neuro General: patient oriented x3 and no focal motor deficits Extrem General: Yes no clubbing, cyanosis or edema Results Labs and Meds Result diagrams: 02/19/21 11:34 02/19/21 11:34 Lab results: Laboratory Results - last 24 hr 02/19/21 02/19/21 11:34 11:34 WBC 4.6 L RBC 3.77 L Hgb 11.5 L Hct 35.1 L MCV 93.1 MCH 30.5 MCHC 32.8 RDW 12.4 Plt Count 228 MPV 9.8 Absolute Nucleated RBC 0.000 Nucleated RBC % (auto) 0.0 Sodium 140 Potassium 4.8 Chloride 110 H Carbon Dioxide 21 L Anion Gap 14 BUN 43 H Creatinine 1.66 H Estim Creat Clear Calc 21.4 Estimated GFR 29 Random Glucose 101 Calcium 9.7 Progress Note: A&P Assessment and plan (1) NSTEMI (non-ST elevated myocardial infarction): Status: Acute Assessment and Plan: Patient present with chest pain with elevated troponin consistent with acute coronary syndrome. Elected to undergo conservative therapy. Undergoing myocardial perfusion imaging today. Further treatment based on the findings of the myocardial perfusion imaging for risk stratification perspective. If she has significant myocardial ischemia may require further invasive approach. Blood pressure needs to better control, however part of her elevated blood pressure may be related to anxiety to undergo stress test. Continue aspirin and Plavix. Continue high-intensity statin therapy. Will continue to pursue follow-up. (2) Hypertension: Status: Acute Assessment and Plan: Hypertension with moderate LVH consistent with hypertensive heart disease. Better control blood pressure is needed. Currently on nifedipine as well as isosorbide therapy. Add low-dose beta-neil therapy with metoprolol 25 mg daily and up titrate as tolerated. Currently off angiotensin receptor neil due to elevated creatinine. Will follow with you. Fall Risk Details Current Medications: Current Medications Generic Name Dose Route Start Last Admin Trade Name Freq PRN Reason Stop Dose Admin Acetaminophen 650 mg 02/17/21 00:11 02/19/21 21:26 Acetaminophen 325 Mg Tablet PO 650 mg Q6H PRN Administration Pain, Mild (Pain Scale 1-3) Aspirin 81 mg 02/17/21 09:00 02/20/21 08:19 Aspirin 81 Mg Tab.Chew PO 81 mg DAILY [facility] Administration Atorvastatin Calcium 20 mg 02/17/21 21:00 02/19/21 21:23 Atorvastatin Calcium 10 Mg Tablet PO 20 mg BEDTIME [facility] Administration Clopidogrel Bisulfate 75 mg 02/18/21 09:00 02/20/21 08:19 Clopidogrel Bisulfate 75 Mg Tablet PO 75 mg DAILY [facility] Administration Docusate Sodium 100 mg 02/17/21 00:11 Docusate Sodium 100 Mg Capsule PO DAILY PRN Constipation Ergocalciferol 1,250 mcg 02/26/21 09:00 Ergocalciferol (Vitamin D2) 1,250 Mcg Capsule PO Q336H [facility] Hydrochlorothiazide 25 mg 02/17/21 09:00 02/20/21 08:19 Hydrochlorothiazide 25 Mg Tablet PO 25 mg DAILY [facility] Administration Ceftriaxone Sodium 1 gm/ 50 mls @ 100 mls/hr 02/17/21 08:00 02/20/21 08:42 Sodium Chloride IV Infused Q24H [facility] Infusion Sodium Chloride 1,000 mls @ 100 mls/hr 02/19/21 11:00 02/20/21 09:29 Ns IVCONT Infused .Q10H [facility] Infusion Isosorbide Mononitrate 30 mg 02/17/21 16:00 02/20/21 08:19 Isosorbide Mononitrate 30 Mg Tab.Er.24h PO 30 mg DAILY [facility] Administration Protocol Lorazepam 0.5 mg 02/17/21 00:11 02/19/21 21:26 Lorazepam 0.5 Mg Tablet PO 0.5 mg DAILY PRN Administration Anxiety Nifedipine 90 mg 02/17/21 09:00 02/20/21 08:19 Nifedipine Er 90 Mg Tab.Er.24 PO 90 mg DAILY [facility] Administration Protocol Omeprazole 20 mg 02/17/21 06:30 02/20/21 05:44 Omeprazole 20 Mg Capsule. PO Not Given DAILY@0630 [facility] Ondansetron HCl 4 mg 02/17/21 00:11 Ondansetron Hcl 4 Mg/2 Ml Vial IVPUSH Q8H PRN Nausea and Vomiting Pharmacy Consult 1 each 02/16/21 10:56 Consult Rx Perform Med Rec MISCELLANE ONCE PRN Consult order Time Spent With Patient Time: Total time spent is greater than 50% in coordination of care (as documented) at patient's floor/unit and/or counseling patient: Time with patient: 15 - 24 minutes Procedures Date of Service Date of Service: 02/20/21
--- NOTE | 2021-02-20 11:49 | P.PNIM_ITS ---
Subjective Subjective Date of Service: 02/20/21 Interval History: Seen in f/u for chest pain, no more pain, going for stress test today Constitutional Constitutional: Reports no additional constitutional complaints Cardiovascular Cardiovascular: Denies chest pain at rest Gastrointestinal Gastrointestinal: Reports no additional gastrointestinal complaints Psychiatric Psychiatric: Reports no additional psychiatric complaints Endocrine Endocrine: Reports no additional endocrine complaints Physical Exam Vital Signs: Vital Signs: Last Vital Signs Temp 97.4 F 02/20/21 07:41 Pulse 65 02/20/21 07:41 Resp 18 02/20/21 07:41 BP 182/78 H 02/20/21 07:41 Pulse Ox 98 02/20/21 07:41 Body Mass Index 28.7 General: AO X 3, no acute distress Resp: CTA bilateral CVS: S1,S2,RRR GI: +BS, NT, no distention Skin: No rash Neuro: motor grossly intact Psych: appropriate affect Objective Data Current Medications Generic Name Dose Route Start Last Admin Trade Name Freq PRN Reason Stop Dose Admin Acetaminophen 650 mg 02/17/21 00:11 02/19/21 21:26 Acetaminophen 325 Mg Tablet PO 650 mg Q6H PRN Administration Pain, Mild (Pain Scale 1-3) Aspirin 81 mg 02/17/21 09:00 02/20/21 08:19 Aspirin 81 Mg Tab.Chew PO 81 mg DAILY [facility] Administration Atorvastatin Calcium 20 mg 02/17/21 21:00 02/19/21 21:23 Atorvastatin Calcium 10 Mg Tablet PO 20 mg BEDTIME [facility] Administration Clopidogrel Bisulfate 75 mg 02/18/21 09:00 02/20/21 08:19 Clopidogrel Bisulfate 75 Mg Tablet PO 75 mg DAILY [facility] Administration Docusate Sodium 100 mg 02/17/21 00:11 Docusate Sodium 100 Mg Capsule PO DAILY PRN Constipation Ergocalciferol 1,250 mcg 02/26/21 09:00 Ergocalciferol (Vitamin D2) 1,250 Mcg Capsule PO Q336H [facility] Hydrochlorothiazide 25 mg 02/17/21 09:00 02/20/21 08:19 Hydrochlorothiazide 25 Mg Tablet PO 25 mg DAILY [facility] Administration Ceftriaxone Sodium 1 gm/ 50 mls @ 100 mls/hr 02/17/21 08:00 02/20/21 08:42 Sodium Chloride IV Infused Q24H [facility] Infusion Sodium Chloride 1,000 mls @ 100 mls/hr 02/19/21 11:00 02/20/21 09:29 Ns IVCONT Infused .Q10H [facility] Infusion Isosorbide Mononitrate 30 mg 02/17/21 16:00 02/20/21 08:19 Isosorbide Mononitrate 30 Mg Tab.Er.24h PO 30 mg DAILY [facility] Administration Protocol Lorazepam 0.5 mg 02/17/21 00:11 02/19/21 21:26 Lorazepam 0.5 Mg Tablet PO 0.5 mg DAILY PRN Administration Anxiety Nifedipine 90 mg 02/17/21 09:00 02/20/21 08:19 Nifedipine Er 90 Mg Tab.Er.24 PO 90 mg DAILY [facility] Administration Protocol Omeprazole 20 mg 02/17/21 06:30 02/20/21 05:44 Omeprazole 20 Mg Capsule.Dr [place] Not Given DAILY@0630 [facility] Ondansetron HCl 4 mg 02/17/21 00:11 Ondansetron Hcl 4 Mg/2 Ml Vial IVPUSH Q8H PRN Nausea and Vomiting Pharmacy Consult 1 each 02/16/21 10:56 Consult Rx Perform Med Rec MISCELLANE ONCE PRN Consult order Labs CBC & Chem 7: 02/19/21 11:34 02/19/21 11:34 Microbiology Microbiology Results: Microbiology 02/16/21 Unknown Urine clean catch - Clean Catch Midstream Urine Culture - Final Assessment and Plan (1) Chest pain: Status: Acute (2) Elevated troponin: Status: Acute (3) UTI (urinary tract infection): Status: Acute (4) Hypomagnesemia: Status: Acute Assessment and Plan: 85 yo Fm with hx of htn presents with complaints of CP # Chest pain with elevated trop, NSTE/UA -Get echo -Lovenox x 48 hrs, done -ASA, Plavix -low dose Metoprolol -Statin -Stress on Tuesday 02/20, resting tomorrow # UTI - UA positive - reports frequency - will treat with ceftriaxone, - follow cultures # Hypomagnesemia - repleted - Follow mag level # hypertension - elevated - continue home medications # hyperlipidemia - continue stat #Mild chronic hyperKalemia--check lab today DVT heparin
[2021-02-20] MEDS: Heparin Sodium,Porcine 5,000 UNIT/ML VIAL 5000 UNIT SUBCUT (12:48)
[2021-02-20] MEDS: Acetaminophen 325 MG TABLET 650 MG PO (13:20)
[2021-02-20] MEDS: 0.9 % Sodium Chloride 1,000 ML 100 ML IVCONT ×2 (13:21→23:24)
--- NOTE | 2021-02-20 13:29 | MHC.CM.PN ---
Female 85 dx Chest pain r/o ACS LOS r/t need for Stress test. Anticpate DC today 02/21/21
[2021-02-20 16:00] VITALS: BP 145/67; PULSE 78; RESP 20; TEMP 36.8; O2SAT 97
[2021-02-20 19:49] VITALS: BP 148/65; PULSE 58; RESP 18; TEMP 36.8; O2SAT 98
[2021-02-20] MEDS: Atorvastatin Calcium 10 MG TABLET 20 MG PO (20:22)
[2021-02-21 00:06] VITALS: BP 150/66; PULSE 58; RESP 18; TEMP 36.3; O2SAT 96
[2021-02-21] MEDS: Omeprazole 20 MG CAPSULE.DR PO (05:57)
[2021-02-21 07:38] VITALS: BP 153/70; PULSE 57; RESP 18; TEMP 36.3; O2SAT 99
--- NOTE | 2021-02-21 08:17 | PM.DS ---
DS: Providers Provider Date of Service: 02/21/21 Date of admission: 02/16/21 22:05 Primary care physician: Devin Hall MD Consults: 02/17/21 00:11 Consult to Cardiology Routine Consulting Provider: Harman Rico Reason for consultation: elevated trop, Has provider been notified: No DS: Diagnosis Discharge Diagnosis (1) Chest pain: Status: Acute (2) Elevated troponin: Status: Acute (3) UTI (urinary tract infection): Status: Acute (4) Hypomagnesemia: Status: Acute DS: Medications Discharge Medications Home Medications: Home Medications Medication Instructions Recorded Confirmed ergocalciferol (vitamin D2) 1,250 1,250 mcg PO Q2W 09/30/20 02/16/21 mcg (50,000 unit) capsule simvastatin 20 mg tablet 20 mg PO BEDTIME 09/30/20 02/16/21 aspirin 81 mg PO DAILY 02/16/21 02/16/21 lorazepam 0.5 mg PO DAILY PRN 02/16/21 02/16/21 nifedipine 90 mg PO DAILY 02/16/21 02/16/21 pantoprazole 40 mg PO DAILY@0630 02/16/21 02/16/21 psyllium husk [Metamucil] 1.04 g PO BEDTIME 02/16/21 02/16/21 Previous Rx's Medication Instructions Recorded valsartan 160 1 tab PO DAILY #90 tab 01/16/21 mg-hydrochlorothiazide 25 mg tablet DS: Summary Hospital Course Hospital Course: Chief Complaint: chest pain 85-year-old female with past medical history of hypertension who presents to the hospital chest pain. Patient reports that the pain started around 4:00 a.m., midsternal, 9/10, squeezing, nonradiating, called her emergency services and was told to take 4 baby aspirins that helped the pain. Please not also felt short of breath but reports that could be because she was nervous. She had no palpitations, she did feel lightheaded, currently has no chest pain. Patient denies any nausea vomiting, no abdominal pain diarrhea or constipation. has urinary frequency, no lower extremity edema. No numbness tingling or weakness. On arrival to the ED vital significant for temp of 98.4?, heart rate of 69, respiratory rate of 16, blood pressure of 174/74, satting 99% on room air Labs are significant for WBC count of 5.5, hemoglobin of 11.4 which is around her baseline, potassium of 5.4, BUN of 39, creatinine of 1.46 which is around her baseline, magnesium of 1.5, AST of 146, ALT of 80, alk-phos of 126, initial troponin of 6.4, that increased to 21.6. UA positive for leukocyte Estrace as well as WBC EKG reviewed shows NSR with no st-t wave changes Patient will be admitted for ACS rule out given the delta and troponin elevation Hospital course: Patient was admitted and treated for ACS with medical therapy consisting of anticoagulation, ASA, plavix, and statin. Echo showed normal LV and no wall motion abnormality. She underwent stress test with nuclear perfusion that was normal. Had UTI, culture negative and treated with Rocephin. She had GERONIMO on top of baseline CKD treated with IVF, Creatine went from 1.68 to 1.02 today. Time Spent with Patient Time attestation: Total time spent providing and/or coordinating discharge services: Discharge coordination time: Greater than 30 minutes Quality: Stroke Does the patient have a stroke diagnosis?: No Physical Exam Vital Signs: Vital Signs: Last Vital Signs Temp 97.4 F 02/21/21 07:38 Pulse 57 02/21/21 07:38 Resp 18 02/21/21 07:38 BP 153/70 H 02/21/21 07:38 Pulse Ox 99 02/21/21 07:38 Body Mass Index 28.7 Constitutional Awake and Alert, No apparent distress Neck Supple, No lymphadenopathy Cardiovascular RRR, No M/R/G, S1 S2, No S3 S4, No pedal edema Respiratory Lungs clear, No respiratory distress Gastrointestinal Non tender, Non-distended Skin No rash Neurological Alert & oriented x3 Psychological Appropriate affect Discharge Plan Discharge Anticipated Discharge Date/Time: 02/21/21 08:11 Patient Disposition: Home, Self-Care Discharge Diagnosis: Chest pain, elevated troponin, UTi, renal failure Referrals: Devin Hall MD [Primary Care Provider] - 1 Week Discharge Medications: Continued valsartan-hydrochlorothiazide 160-25 mg tablet 1 tab PO DAILY Qty: 90 RF: 8 nifedipine 90 mg tablet extended release 24hr 90 mg PO DAILY RF: 0 pantoprazole 40 mg tablet,delayed release (DR/EC) 40 mg PO DAILY@0630 RF: 0 aspirin 81 mg Tablet,Chewable 81 mg PO DAILY RF: 0 psyllium husk [Metamucil] 0.52 gram Capsule 1.04 g PO BEDTIME RF: 0 lorazepam 0.5 mg Tablet 0.5 mg PO DAILY PRN (Reason: Anxiety) RF: 0 ergocalciferol (vitamin D2) 1,250 mcg (50,000 unit) capsule 1,250 mcg PO Q2W RF: 0 simvastatin 20 mg tablet 20 mg PO BEDTIME RF: 0 Discharge Orders: Discharge Order (Routine); Ordered 02/21/21 Ordered By: Prince Slaazar Diet: advance to usual diet Activity on Discharge: As tolerated Stand Alone Forms: Patient Portal Discharge page Care Plan Goals: prevent rehospitalization Health Concerns: elevated troponin, renal failure that's better Plan of Treatment: contine taking your medications as before, and follow up with your Doctor in a week, youe stress test was normal Assessment: See above Discharge Date/Time: 02/21/21 14:34
[2021-02-21] MEDS: cefTRIAXone sodium 1 GM in 0.9 % Sodium Chloride 50 ML IV (08:58)
[2021-02-21] MEDS: NIFEdipine ER 90 MG TAB.ER.24 PO (08:59)
[2021-02-21] MEDS: Clopidogrel Bisulfate 75 MG TABLET PO (08:59)
[2021-02-21] MEDS: Aspirin 81 MG TAB.CHEW PO (08:59)
[2021-02-21] MEDS: Isosorbide Mononitrate 30 MG TAB.ER.24H PO (08:59)
[2021-02-21] MEDS: hydroCHLOROthiazide 25 MG TABLET PO (08:59)
[2021-02-21 09:59] LABS: Anion Gap 13 (12-20); Blood Urea Nitrogen 22 mg/dL (9-16); Calcium 9.8 mg/dL (8.4-10.2); Carbon Dioxide 19 mmol/L (22-29); Chloride 114 mmol/L (96-108); Creatinine Clr Calc Pharmacy 34.9; Estimated Glomerular Filt Rate 52; Glucose Random 81 mg/dL (60-115); Sodium 141 mmol/L (135-145)
[2021-02-21 11:00] VITALS: BP 131/61; PULSE 61; RESP 20; TEMP 36.6; O2SAT 98
--- NOTE | 2021-02-21 11:15 | PM.PNCARD ---
Subjective Subjective Date of Service: 02/21/21 <RADHA Hester - Last Filed: 02/21/21 11:25> 02/21/21 <See Quinn MD - Last Filed: 02/21/21 12:08> Principal diagnosis: ACS <RADHA Hester - Last Filed: 02/21/21 11:25> Interval history: Cardiology follow up for ACS. Seen at 0830. Today she reports feeling well. No chest pains, sob, palpitation, dizziness. Slept well. Had rest images for nuclear stress test this am. <RADHA Hester - Last Filed: 02/21/21 11:25> Review of Systems Review of Systems as above <RADHA Hester Last Filed: 02/21/21 11:25> Yes all other systems are reviewed and are negative <RADHA Hester - Last Filed: 02/21/21 11:25> Physical Exam Vital Signs: Last Vital Signs Temp 97.8 F 02/21/21 11:00 Pulse 61 02/21/21 11:00 Resp 20 02/21/21 11:00 BP 131/61 02/21/21 11:00 Pulse Ox 98 02/21/21 11:00 Body Mass Index 28.7 <RADHA Hester Last Filed: 02/21/21 11:25> Const General: cooperative, no acute distress, alert and awake <RADHA Hester - Last Filed: 02/21/21 11:25> Orientation/consciousness: patient oriented x3 <RADHA Hester - Last Filed: 02/21/21 11:25> Neck Neck: Yes normal visual inspection and Yes no JVD <RADHA Hester Last Filed: 02/21/21 11:25> Resp Effort & Inspection: normal respiratory effort, able to speak in complete sentences and not labored <RADHA Hester Last Filed: 02/21/21 11:25> Auscultation: clear to auscultation bilaterally, no crackles, no rales, no rhonchi and no wheezes <RADHA Hester - Last Filed: 02/21/21 11:25> Cardio Palpation: normal PMI <RADHA Hester - Last Filed: 02/21/21 11:25> Rate: regular rate <RADHA Hester - Last Filed: 02/21/21 11:25> Rhythm: regular rhythm <RADHA Hester - Last Filed: 02/21/21 11:25> Heart sounds: S1 normal heart sound present and S2 normal heart sound present <Sloane Sandra RADHA - Last Filed: 02/21/21 11:25> Peripheral pulses: Peripheral pulses 2+ throughout <Sloane Sandra RADHA - Last Filed: 02/21/21 11:25> GI Inspection: Yes normal to inspection <Sloane Sandra RADHA - Last Filed: 02/21/21 11:25> Neuro General: patient oriented x3 <Sloane Sandra RAHDA - Last Filed: 02/21/21 11:25> Extrem General: Yes normal to inspection and No edema <Sloane Sandra RADHA - Last Filed: 02/21/21 11:25> Results Labs and Meds Result diagrams: : 02/19/21 11:34 02/21/21 09:10 <Sloane Sandra RADHA - Last Filed: 02/21/21 11:25> Lab results: Laboratory Results - last 24 hr 02/21/21 09:10 Sodium 141 Potassium 5.0 Chloride 114 H Carbon Dioxide 19 L Anion Gap 13 BUN 22 H Creatinine 1.02 Estim Creat Clear Calc 34.9 Estimated GFR 52 Random Glucose 81 Calcium 9.8 <Sloane Sandra RADHA - Last Filed: 02/21/21 11:25> Progress Note: A&P Assessment and plan (1) NSTEMI (non-ST elevated myocardial infarction): Status: Acute <Sloane Sandra JAMESJakobValentine - Last Filed: 02/21/21 11:25> Assessment and Plan: Report of squeezing CP on admit. Troponin elevated to 25.9. EKG without ischemic changes. Echo shows normal EF, mod LVH, mild to mod , no regional WMA. Cardiac risks age, HTN, HLD, CKD. Treated for NSTEMI. Had stress portion of nuclear stress test yesterday and rest images done today. If normal - she may be discharged from cardiology perspective. If abnormal- then further treatment plan will be determined. Continue on aspirin, atorvastatin. Not on BB as heart rate runs on low side. Tele shows Sinus hailey rates 50-60s. Continue Imdur. Once discharged, We will arrange for outpt cardiology follow up. <RADHA Hester - Last Filed: 02/21/21 11:25> Seen and examined. Case discussed with Sloane. Patient with no recurrent chest pain. Myocardial perfusion imaging within normal limits. Question chest pain and elevated troponin related to hypertension and hypertensive heart disease. Continue aggressive control of blood pressure. Acute kidney injury has resolved. Patient remains hypertensive. Start valsartan therapy. Continue remainder of the therapy. Follow up as outpatient in 2 weeks. Patient can be discharged home today. Advised to monitor blood pressure at home and maintain a log and bring it to the next office visit. <See Quinn MD - Last Filed: 02/21/21 12:08> (2) Chest pain: Status: Acute <RADHA Hester - Last Filed: 02/21/21 11:25> (3) Hypertension: Status: Acute <RADHA Hester - Last Filed: 02/21/21 11:25> Assessment and Plan: BP elevated at 153/70 this am. Home Valsartan held due to elevated Cr 1.66 yesterday. Is on usual HCTZ, nifedipine. Imdur was added this admit. Cr down to 1.02. Valsartan can be restarted with close monitoring of kidney function. <RADHA Hester - Last Filed: 02/21/21 11:25> Fall Risk Details Current Medications: Current Medications Generic Name Dose Route Start Last Admin Trade Name Freq PRN Reason Stop Dose Admin Acetaminophen 650 mg 02/17/21 00:11 02/20/21 13:20 Acetaminophen 325 Mg Tablet PO 650 mg Q6H PRN Administration Pain, Mild (Pain Scale 1-3) Aspirin 81 mg 02/17/21 09:00 02/21/21 08:59 Aspirin 81 Mg Tab.Chew PO 81 mg DAILY [facility]OU Administration Atorvastatin Calcium 20 mg 02/17/21 21:00 02/20/21 20:22 Atorvastatin Calcium 10 Mg Tablet PO 20 mg BEDTIME [facility]OU Administration Clopidogrel Bisulfate 75 mg 02/18/21 09:00 02/21/21 08:59 Clopidogrel Bisulfate 75 Mg Tablet PO 75 mg DAILY [facility] Administration Docusate Sodium 100 mg 02/17/21 00:11 Docusate Sodium 100 Mg Capsule PO DAILY PRN Constipation Ergocalciferol 1,250 mcg 02/26/21 09:00 Ergocalciferol (Vitamin D2) 1,250 Mcg Capsule PO Q336H [facility] Heparin Sodium (Porcine) 5,000 unit 02/20/21 12:00 02/20/21 23:26 Heparin Sodium,Porcine 5,000 Unit/Ml Vial SUBCUT Not Given Q12H [facility] Hydrochlorothiazide 25 mg 02/17/21 09:00 02/21/21 08:59 Hydrochlorothiazide 25 Mg Tablet PO 25 mg DAILY [facility] Administration Ceftriaxone Sodium 1 gm/ 50 mls @ 100 mls/hr 02/17/21 08:00 02/21/21 09:43 Sodium Chloride IV Infused Q24H [facility] Infusion Sodium Chloride 1,000 mls @ 100 mls/hr 02/19/21 11:00 02/21/21 06:34 Ns IVCONT 0 mls/hr .Q10H [facility] Infusion Isosorbide Mononitrate 30 mg 02/17/21 16:00 02/21/21 08:59 Isosorbide Mononitrate 30 Mg Tab.Er.24h PO 30 mg DAILY [facility] Administration Protocol Lorazepam 0.5 mg 02/17/21 00:11 02/19/21 21:26 Lorazepam 0.5 Mg Tablet PO 0.5 mg DAILY PRN Administration Anxiety Nifedipine 90 mg 02/17/21 09:00 02/21/21 08:59 Nifedipine Er 90 Mg Tab.Er.24 PO 90 mg DAILY [facility] Administration Protocol Omeprazole 20 mg 02/17/21 06:30 02/21/21 05:57 Omeprazole 20 Mg Capsule.Dr PO 20 mg DAILY@0630 [facility] Administration Ondansetron HCl 4 mg 02/17/21 00:11 Ondansetron Hcl 4 Mg/2 Ml Vial IVPUSH Q8H PRN Nausea and Vomiting Pharmacy Consult 1 each 02/16/21 10:56 Consult Rx Perform Med Rec MISCELLANE ONCE PRN Consult order <Sloane M Boaz, [employer] - Last Filed: 02/21/21 11:25> Time Spent With Patient Time: Total time spent is greater than 50% in coordination of care (as documented) at patient's floor/unit and/or counseling patient: 21 <RADHA Hester - Last Filed: 02/21/21 11:25> Time with patient: 15 - 24 minutes <RADHA Hester - Last Filed: 02/21/21 11:25> Procedures Date of Service Date of Service: 02/21/21 <RADHA Hester - Last Filed: 02/21/21 11:25>
--- NOTE | 2021-02-21 12:39 | MHC.CM.PN ---
IMM 02/21/21 Female 85 is discharged today to home with family providing transportation.
== END 2021-02-21 14:34 | disposition home or self-care (01) | DRG 311 ==
LOC: HO.ED 16:25 → HO.IMC 02-17 07:34 → HO.EDOVER 02-20 14:17 → HO.IMC 02-20 14:17
PROVIDERS: Admitting Provider Internal Medicine; Emergency Provider Emergency Medicine; PCP Internal Medicine; Visit Provider Internal Medicine
DX: I24.9 Acute ischemic heart disease, unspecified (principal); N39.0 Urinary tract infection, site not specified; N17.9 Acute kidney failure, unspecified; I12.9 Hypertensive chronic kidney disease with stage 1 through stage 4 chronic kidney disease, or unspecified chronic kidney disease; E78.5 Hyperlipidemia, unspecified; E83.42 Hypomagnesemia; N18.9 Chronic kidney disease, unspecified; E87.5 Hyperkalemia; Z20.822 Contact with and (suspected) exposure to COVID-19; Z87.891 Personal history of nicotine dependence; Z79.82 Long term (current) use of aspirin; Z79.899 Other long term (current) drug therapy
CPT/HCPCS: 36415; 71045; 76700; 78452; 80048; 80076; 81001; 81003; 83690; 83735; 84484; 85025; 85027; 85610; 85730; 87086; 87635; 93005; 93016; 93017; 93018; 93306; 99285; A9500; J0280; J0696; J1650; J2785; J3475

== ENCOUNTER → 2021-03-13 13:27 | Outpatient (BNVA) | payer MEDICARE, SELFPAY | PROVIDERS: PCP Internal Medicine; Referring Provider Internal Medicine; Visit Provider Nurse Practitioner Family | DX: I21.4 Non-ST elevation (NSTEMI) myocardial infarction (principal); R77.8 Other specified abnormalities of plasma proteins; E78.5 Hyperlipidemia, unspecified; I10 Essential (primary) hypertension; I35.0 Nonrheumatic aortic (valve) stenosis | CPT/HCPCS: 93005; 99212 ==

== ENCOUNTER 2021-06-23 09:10 | Outpatient (REF) | payer MEDICARE, SELFPAY ==
[2021-06-23 09:36] LABS: MANUAL DIFF FLAG NO
[2021-06-23 09:59] LABS: Basophils Percent Auto 0.8 % (0-2); Eosinophils Absolute Auto 0.2 X10*3/uL (0.0-0.4); Eosinophils Percent Auto 5.7 % (0-4); Hematocrit 33.6 % (37-47); Hemoglobin 10.7 g/dl (12.0-16.0); Lymphocytes Absolute Auto 1.1 X10*3/uL (1.2-4.9); Lymphocytes Percent Auto 28.1 % (20-40); Mean Corpuscular HGB Conc 31.8 g/dl (31.0-35.0); Mean Corpuscular Hemoglobin 29.7 pg (27.0-33.0); Mean Corpuscular Volume 93.3 fL (80-98); Mean Platelet Volume 9.7 fL (9.4-12.3); Monocytes Absolute Auto 0.5 X10*3/uL (0.1-1.2); Monocytes Percent Auto 11.9 % (2-11); Neutrophils Absolute Auto 2.1 X10*3/uL (2.0-8.3); Neutrophils Percent Auto 53.5 % (45-73); Platelet Count 223 X10*3/uL (160-400); Red Cell Distribution Width 12.5 % (11.0-16.0); White Blood Count 3.9 X10*3/uL (4.8-10.8)
[2021-06-23 10:25] LABS: Alanine Aminotransferase 9 U/L (0-31); Albumin Level 4.4 g/dL (3.5-5.0); Alkaline Phosphatase 95 U/L (39-117); Anion Gap 12 (12-20); Aspartate Amino Transferase 13 U/L (5-31); Bilirubin Total 0.4 mg/dL (0.0-1.0); Blood Urea Nitrogen 34 mg/dL (9-16); Calcium 9.6 mg/dL (8.4-10.2); Carbon Dioxide 24 mmol/L (22-29); Chloride 112 mmol/L (96-108); Cholesterol 153 mg/dL; Estimated Glomerular Filt Rate 36; Glucose Fasting 90 mg/dL (60-99); HDL Cholesterol 50 mg/dL; LDL Cholesterol Calculated 88 mg/dl; Potassium 5.3 mmol/L (3.3-5.1); Sodium 143 mmol/L (135-145); Triglycerides 76 mg/dL
[2021-06-23 10:50] LABS: Thyroid Stimulating Hormone 2.46 uIU/mL (0.32-4.0)
== END 2021-06-23 09:11 | disposition home or self-care (01) ==
LOC: HO.LAB 09:10
PROVIDERS: PCP Internal Medicine; Visit Provider Internal Medicine
DX: Z00.00 Encounter for general adult medical examination without abnormal findings (principal); E11.9 Type 2 diabetes mellitus without complications; E03.9 Hypothyroidism, unspecified
CPT/HCPCS: 36415; 80053; 80061; 84443; 85025

== ENCOUNTER 2021-07-24 09:29 | Outpatient (REF) | payer MEDICARE, SELFPAY ==
[2021-07-24 09:53] LABS: MANUAL DIFF FLAG NO
[2021-07-24 10:33] LABS: Basophils Percent Auto 0.4 % (0-2); Eosinophils Absolute Auto 0.2 X10*3/uL (0.0-0.4); Eosinophils Percent Auto 3.7 % (0-4); Hematocrit 34.9 % (37.0-47.0); Hemoglobin 11.4 g/dl (12.0-16.0); Imm Gran Abs Auto 0.02 X10*3/uL (0.00-0.03); Imm Gran Pct Auto 0.4 % (0.0-0.4); Lymphocytes Absolute Auto 1.1 X10*3/uL (1.2-4.9); Lymphocytes Percent Auto 19.4 % (20-40); Mean Corpuscular HGB Conc 32.7 g/dl (31.0-35.0); Mean Corpuscular Volume 94.8 fL (80.0-98.0); Mean Platelet Volume 10.1 fL (9.4-12.3); Monocytes Absolute Auto 0.5 X10*3/uL (0.1-1.2); Neutrophils Absolute Auto 3.6 x10*3/uL (2.0-8.3); Neutrophils Percent Auto 66.1 % (45-73); Platelet Count 223 X10*3/uL (160-400); Red Blood Count 3.68 X10*6/uL (4.20-5.50); Red Cell Distribution Width 12.5 % (11.0-16.0); White Blood Count 5.4 X10*3/uL (4.8-10.8)
[2021-07-24 11:17] LABS: Vitamin D 25-OH Total 24.4 ng/mL (>30)
[2021-07-24 11:29] LABS: Albumin Level 4.4 g/dL (3.5-5.0); Blood Urea Nitrogen 42 mg/dL (9-16); Calcium 9.8 mg/dL (8.4-10.2); Estimated Glomerular Filt Rate 28; Magnesium 1.6 mg/dL (1.6-2.6); Phosphorus 3.1 mg/dL (2.7-4.5)
[2021-07-24 11:53] LABS: Anion Gap 14 (12-20); Carbon Dioxide 24 mmol/L (22-29); Chloride 110 mmol/L (96-108); Potassium 6.3 mmol/L (3.3-5.1); Sodium 142 mmol/L (135-145)
[2021-07-24 11:57] LABS: Appearance Urine HAZY; Color Urine YELLOW; Glucose Urine UA NEG (NEG); Leukocyte Esterase Urine 1+ (NEG); Nitrite Urine NEG (NEG); Urine Blood NEG (NEG); Urine Ketones NEG (NEG); Urine Protein TRACE MG/DL (NEG-TRACE)
[2021-07-24 12:29] LABS: Bacteria Urine 3+ /LPF; RBC Urine 0 /HPF (0); Squamous Epithelial Cell Urine 2+ /LPF; WBC Clumps Urine NOTED; WBC Urine 30-49 /HPF (0-4)
[2021-07-24 14:31] LABS: Creatinine Urine 118.37 mg/dL; Microalbum/Creatinine Ratio Ur 84.4 ug/mg cr; Protein/Creatinine Ratio, Ur 0.19 (<0.2); Total Protein Urine Random 23 mg/dL (<12)
[2021-07-25 16:26] LABS: Calcium (PTHI) 10.1 mg/dL (8.6-10.4); PTHI 118 pg/mL (14-64)
== END 2021-07-24 09:30 | disposition home or self-care (01) ==
LOC: HO.LAB 09:29
PROVIDERS: PCP Internal Medicine; Visit Provider Internal Medicine Nephrology
DX: I12.9 Hypertensive chronic kidney disease with stage 1 through stage 4 chronic kidney disease, or unspecified chronic kidney disease (principal); N18.32 Chronic kidney disease, stage 3b; N25.0 Renal osteodystrophy
CPT/HCPCS: 36415; 80051; 81001; 81003; 82040; 82043; 82306; 82310; 82565; 83735; 83970; 84100; 84156; 84520; 85025; 87086; 87088; 87186

== ENCOUNTER 2021-07-27 10:12 | Outpatient (REF) | payer MEDICARE, SELFPAY ==
[2021-07-27 12:00] LABS: Anion Gap 13 (12-20); Blood Urea Nitrogen 25 mg/dL (9-16); Calcium 9.4 mg/dL (8.4-10.2); Carbon Dioxide 27 mmol/L (22-29); Chloride 110 mmol/L (96-108); Estimated Glomerular Filt Rate 49; Sodium 146 mmol/L (135-145)
== END 2021-07-27 10:13 | disposition home or self-care (01) ==
LOC: HO.LAB 10:12
PROVIDERS: PCP Internal Medicine; Visit Provider Internal Medicine Nephrology
DX: N18.30 Chronic kidney disease, stage 3 unspecified (principal)
CPT/HCPCS: 36415; 80051; 82310; 82565; 84520

== ENCOUNTER → 2021-11-08 14:05 | Outpatient (BNVA) | payer MEDICARE, SELFPAY | PROVIDERS: PCP Internal Medicine; Referring Provider Internal Medicine; Visit Provider Nurse Practitioner Family | DX: I21.4 Non-ST elevation (NSTEMI) myocardial infarction (principal); I35.0 Nonrheumatic aortic (valve) stenosis; I10 Essential (primary) hypertension; E78.5 Hyperlipidemia, unspecified; R00.1 Bradycardia, unspecified; Z87.891 Personal history of nicotine dependence; Z79.82 Long term (current) use of aspirin; Z79.899 Other long term (current) drug therapy | CPT/HCPCS: 93005; 99212 ==

== ENCOUNTER → 2021-11-27 07:29 | Outpatient (REF) | payer MEDICARE, SELFPAY ==
--- NOTE | 2021-11-27 07:53 | HM_ITS ---
* Total monitoring time 3 days and 2 hours. * Underlying rhythm is sinus bradycardia; average rate 56/Min; range 44 to 97/Min. About 11% of the time, rate less than 60/Min. * No atrial fibrillation or flutter or AV blocks or pauses. * Rare supraventricular ectopy with minimal burden. * Very rare ventricular ectopy. * No patient events. MTDD
== END ==
LOC: HO.CARD 07:29
PROVIDERS: Visit Provider Nurse Practitioner Family
DX: R00.1 Bradycardia, unspecified (principal)
CPT/HCPCS: 93225; 93242

== ENCOUNTER 2022-01-02 15:38 | Inpatient (IN) | payer MEDICARE, SELFPAY ==
[2022-01-02] VITALS (7 sets, daily range): BP systolic 121–153; BP diastolic 54–67; PULSE 58–83; RESP 16–22; TEMP 36.5–36.6; O2SAT 93–100; BMI 26.3
--- NOTE | ~2022-01-02 | FL_ITS ---
EXAMINATION: XR FLUOROSCOPY WITH IMAGES CLINICAL INFORMATION: ERCP COMPARISON: None. TECHNIQUE: Fluoroscopy performed by Dr. De La Vega. Fluoroscopy time: 2.7 minutes DAP: 0.667 Gycm2 Images: 11 FINDINGS: Endoscope noted. There is cannulization of the common bile duct with injection of contrast showing a dilated duct. Evidence of balloon runs. FL/FL guidance in OR IMPRESSION: Fluoroscopic guidance for ERCP. Please refer to procedural report for further information.
--- NOTE | ~2022-01-02 | XR_ITS ---
EXAMINATION: XR CHEST CLINICAL INFORMATION: Chest pain. COMPARISON: CT abdomen 01/02/2022, portable chest radiographs 02/16/2021 TECHNIQUE: Portable upright AP view of the chest was obtained. FINDINGS: The lungs are clear. There is no pneumothorax, pleural reaction, airspace consolidation, or effusion. The costophrenic sulci are clear. The heart is normal in size. The vascularity is normal. The hilar and mediastinal contours and visualized bony structures are unremarkable. There is no free air beneath the diaphragms. XR/XR chest 1V IMPRESSION: Unremarkable examination.
--- NOTE | ~2022-01-02 | US_ITS ---
EXAMINATION: US ABDOMEN LIMITED CLINICAL INFORMATION: Right upper quadrant pain with question of gallstones. COMPARISON: CT scan performed earlier today, ultrasound abdomen 02/16/2021 TECHNIQUE: Real-time imaging of the right upper quadrant abdominal viscera. FINDINGS: PANCREAS: The pancreas appears without masses. The tail is obscured by bowel gas. The pancreatic duct measures 3 mm. LIVER: The liver is normal in size. The liver contour is normal. Parenchymal echogenicity is normal. No focal hepatic lesion. There is mild biliary ductal dilatation is seen on the CT scan earlier today GALLBLADDER: The gallbladder is physiologically distended. Multiple small layering mobile gallstones are present. No evidence of gallbladder wall thickening or pericholecystic fluid. COMMON BILE DUCT: Common bile duct is dilated at 1.4 cm in diameter. On the prior ultrasound from 02/16/2021 the common bile duct measured 1.2 cm and on the chest CT scan from earlier today the same at about 1.4 to 1.[address] scan performed earlier today, high density material was seen in the distal common bile RIGHT KIDNEY: No hydronephrosis multiple renal cysts are present the largest measuring 2.1 cm. No further imaging or follow-up is necessary. No renal calculi or focal solid parenchymal lesions. The kidney measures 9.3 cm in maximum dimension. FREE FLUID: None. US/US abdomen limited IMPRESSION: Gallstones are once again demonstrated with prominent intrahepatic biliary ducts and dilated common bile duct. The CT scan earlier today suggested possible stones in the distal duct
--- NOTE | ~2022-01-02 | CT_ITS ---
EXAMINATION: CT ABDOMEN AND PELVIS WITHOUT CONTRAST CLINICAL INFORMATION: Epigastric and right upper quadrant tenderness. Possible biliary disease. COMPARISON: Ultrasound abdomen 02/16/2021, CT abdomen and pelvis noncontrast 12/14/2015. TECHNIQUE: Multidetector volumetric imaging was performed from the superior aspect of the liver through the pubic symphysis. Sagittal and coronal reformatted images were obtained on the technologist's workstation. No oral or intravenous contrast. This CT examination was performed using dose optimization techniques as appropriate, variously including the following: *Automated exposure control *Adjustment of mA and/or kV according to patient size (this includes techniques or standardized protocols for targeted exams where dose is matched to indication/reason for exam; i.e. extremities or head) *Use of iterative reconstruction technique DLP: 415 mGy-cm FINDINGS: LUNG BASES: The visualized lung bases are unremarkable. LIVER, GALLBLADDER, AND BILIARY TREE: There is intrahepatic and extrahepatic biliary ductal dilatation down to the ampulla. The common duct measures between 1.4-1.7 cm. There is some small faint heterogeneous density near the ampulla which may represent poorly mineralized gravel-like calculi. The gallbladder has some fine gravel-like calculi in the dependent portion. There is likely small fundal Phrygian in the cap. No pericholecystic inflammatory changes. Liver is normal in size and smooth in contour and parenchyma homogeneous. PANCREAS: Normal in size and attenuation. No pancreatic ductal dilatation or peripancreatic inflammatory changes. SPLEEN: Unremarkable. ADRENAL GLANDS: Unremarkable. KIDNEYS AND URETERS: No hydronephrosis, hydroureter, calculi, or perinephric stranding. There are multiple bilateral renal cysts, the 3 largest on the left measure between 2.5 and 3.8 cm all of water attenuation and no additional imaging follow-up required. There are smaller cysts on the right, the 2 largest in the upper and lower poles, 1.6 and 1.3 cm and water attenuation. No additional imaging follow-up required. BLADDER: Unremarkable. GASTROINTESTINAL TRACT: Small sliding hiatal hernia, 2.3 cm. No bowel obstruction or focal inflammatory changes in the bowel or mesentery. There are numerous diverticula throughout the colon, greatest on the left. No diverticulitis. The appendix is not seen with certainty. There are no inflammatory changes around the cecum or terminal ileum. No ascites or fluid collection. No free air. ABDOMINAL WALL: Small bilateral inguinal fat-containing hernias. Borderline fat-containing umbilical hernia. LYMPH NODES: No lymphadenopathy. VASCULAR: Tortuous atherosclerotic abdominal aorta with mild aneurysmal enlargement mid abdomen measuring 3.0 cm. Recommend imaging follow-up within 3 years. PELVIC VISCERA: Unremarkable. OSSEOUS STRUCTURES: Degenerative changes lower thoracic and lower lumbar spine. Grade 1 spondylolisthesis L4-L5. Again seen. No spondylolysis. No acute bony abnormality. Preliminary results called to Dr. Grover is in the Emergency Department at [address]/CT abdomen pelvis wo con IMPRESSION: -Prominent intrahepatic and extrahepatic biliary ductal dilatation down to the ampulla. -Fine gravel-like gallstones in dependent gallbladder. No pericholecystic inflammatory change. -Question punctate faint poorly minimal right calculi near the ampulla. -Pancreas unremarkable. -No bowel obstruction or inflammatory changes in bowel or mesentery. 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 Follow-up within 3 years recommended.
--- NOTE | ~2022-01-02 | MR_ITS ---
EXAMINATION: MR ABDOMEN WITHOUT CONTRAST CLINICAL INFORMATION: Worsening LFTs, rule out common bile duct obstruction. COMPARISON: Abdominal ultrasound and CT scan of the abdomen and pelvis dated 01/02/2022. TECHNIQUE: MR abdomen is performed without gadolinium contrast. MRCP was performed with reformatted images obtained on a separate workstation. FINDINGS: LUNG BASES: The visualized lung bases are unremarkable. LIVER, GALLBLADDER, AND BILIARY TREE: No hepatic abnormality. Mild intrahepatic biliary ductal dilatation is seen. The gallbladder is incompletely distended. A fold or small diverticulum is again seen in the fundus without significant change. Mild dependent sludge and small gallstones are seen near the neck and cystic duct. PANCREAS: Unremarkable. SPLEEN: Unremarkable. ADRENAL GLANDS: Unremarkable. KIDNEYS AND URETERS: Multiple T2 hyperintense renal cysts are seen bilaterally, the largest is exophytic off of the upper pole of the left kidney measuring 3.3 cm (image 18, series 4). No nephrolithiasis or hydronephrosis. GASTROINTESTINAL TRACT: The stomach and visualized small bowel are unremarkable. The visualized colon shows mild to moderate diverticulosis, most pronounced distally. No surrounding abnormality. ABDOMINAL WALL: No significant hernia is appreciated. LYMPH NODES: No lymphadenopathy. VASCULAR: Unremarkable. OSSEOUS STRUCTURES: Mild to severe multilevel degenerative changes in the thoracolumbar spine most pronounced at L4-L5 and L5-S1 where there is grade 1 anterolisthesis. No suspicious abnormality. MRCP: The common bile duct measures up to 1.2 cm. Mild to moderate dependent sludge is seen in in the distal common bile duct (image 19, series 6). A small calculus measuring 0.3 cm is seen distal to this as well (image 20, series 6). No pancreatic ductal dilatation. MR/MR MRCP IMPRESSION: 1. Dilatation of the common bile duct with dependent sludge and a 0.3 cm calculus distally at the level the pancreatic head. No pancreatic ductal dilatation. 2. Gallbladder sludge and gallstones at the neck and cystic duct. Small fundal fold versus diverticulum. 3. Bilateral renal cysts demonstrate overall benign features. 4. Mild to moderate colonic diverticulosis without evidence for acute diverticulitis. 5. Multilevel degenerative changes in the thoracolumbar spine.
--- NOTE | 2022-01-02 15:59 | ECG_ITS ---
Test Reason : CHEST PAIN Blood Pressure : / mmHG Vent. Rate : 060 BPM Atrial Rate : 060 BPM P-R Int : 152 ms QRS Dur : 082 ms QT Int : 414 ms P-R-T Axes : -23 011 050 degrees QTc Int : 414 ms Normal sinus rhythm Normal ECG When compared with ECG of 17-FEB-2021 09:26, No significant change was found Referred By: Teodoro Grover Electronically Signed By:JESSY ALVAREZ MD
--- NOTE | 2022-01-02 16:07 | ED_ITS ---
HPI - Abdominal Pain General Chief Complaint: Nausea/Vomiting/Diarrhea Stated Complaint: RUQ/ABD PAIN PER EMS Time Seen by Provider: 01/02/22 15:58 Source: patient Mode of arrival: EMS Limitations: no limitations History of Present Illness HPI narrative: 86-year-old female who presents emergency department for evaluation of epigastric pain, nausea, vomiting, dizziness, fatigue and loss of appetite. Patient states that on , 12/28/2021 (6 days prior to evaluation) she developed abdominal pain. She states she felt fine in the morning and had lunch but by dinner time she developed abdominal pain which she states came on suddenly. She points to her mid epigastric area when asked to localize the pain. She states the pain is constant but waxes and wanes in intensity. The pain is a burning like sensation and is 9/10 at its worst. Pain was 5/10 at the time of evaluation. She states that she has lost her appetite but is able to drink fluids. She has constant nausea and has had multiple episodes of dry heaving on and Saturday but none since then. She states that she is feeling very dizzy, fatigued and weak. She states she had similar pain in February in March of 2021 and had a negative cardiac workup but did not have a clear cause for the pain in the pain resolved. She denied fever but did have chills. She denied rhinorrhea, sore throat, cough, chest pain. She has mild shortness of breath. She denied dyspnea on exertion. She has constant nausea with dry heaves x2 days which resolved. She denies frequency, urgency or dysuria. Denies change in bowel movements, she has not noticed any dark tarry stools or bloody stools. She states that she has received 3 Moderna vaccinations for COVID-19 and she did receive an influenza vaccine for this flu season. MD elicited complaint: abdominal pain Pertinent past history: diverticulitis Onset (ago): day(s) (6) Pain Consistency: constant Location: epigastric and RUQ Severity: severe Pain scale (0-10): 9 Quality: burning Radiation: none Migration to: no migration Exacerbating factors: eating Relieving factors: nothing Associated symptoms: nausea, vomiting, chills, anorexia and other (Fatigue, dizziness) Related Data Home Medications Medication Instructions Recorded Confirmed ergocalciferol (vitamin D2) 1,250 1,250 mcg PO Q2W 09/30/20 11/09/21 mcg (50,000 unit) capsule aspirin 81 mg chewable tablet 81 mg PO DAILY 02/16/21 11/09/21 lorazepam 0.5 mg tablet 0.5 mg PO DAILY PRN 02/16/21 11/09/21 nifedipine 90 mg tablet,extended 90 mg PO DAILY 02/16/21 11/09/21 release 24 hr pantoprazole 40 mg tablet,delayed 40 mg PO DAILY@0630 02/16/21 11/09/21 release psyllium husk 0.52 gram capsule 1.04 g PO BEDTIME 02/16/21 11/09/21 (Metamucil) chlorthalidone 25 mg tablet 12.5 mg PO DAILY 10/26/21 11/09/21 carvedilol 3.125 mg tablet 3.125 mg PO BID 11/08/21 11/08/21 Previous Rx's Medication Instructions Recorded simvastatin 20 mg tablet 20 mg PO BEDTIME #90 tab 06/13/21 Allergies Allergy/AdvReac Type Severity Reaction Status Date / Time No Known Drug Intolerances Allergy Unknown NOT Verified 11/08/21 14:48 APPLICABLE Review of Systems Review of Systems Yes all other systems are reviewed and are negative [facility] Past Medical History [facility] Narrative: Past medical history: Hypertension, hyperlipidemia, GERD, diverticulitis, chronic kidney disease-stage III. Past surgical history: Right total knee replacement. Social history: The patient states she is a former smoker and quit 40 years prior, she believes she smoked for 15 years. She occasionally drinks alcohol. She denies drug use. Medical History Aortic stenosis Biliary colic Hyperlipidemia Hypertension Hypertension Surgical History Hammertoe, bilateral Total knee replacement status Family History Family History Father Heart disease Mother No problems noted. Brother Heart disease Social History Social History Household Members: Spouse Housing: House Unable to assess alcohol history related to: Unknown Alcohol intake: current Alcohol intake frequency: holidays/special occasions only Alcohol type: hard liquor Patient Tobacco Use Status: Former Tobacco user Tobacco use type: Cigarette e-Cigarette/Vaping Use: Never Used Second Hand Smoke Exposure: No Use of substances other than those prescribed or required for medical reasons: No Advance Directives: Yes Advance Directives on File: Yes Advance Directives Date on File: 02/17/21 service: No Current occupational status: retired Cognitive needs: No Hearing needs: No Vision needs: No Physical Exam ED Vital Signs: Vital Signs - 24 hr 01/02/22 15:44 01/02/22 15:53 01/02/22 18:35 Temperature 97.7 F 97.9 F Pulse Rate 68 64 65 Respiratory Rate 16 18 16 Blood Pressure 153/59 H 139/67 146/54 H Pulse Oximetry 99 99 95 01/02/22 19:23 01/02/22 20:19 Temperature Pulse Rate 64 Respiratory Rate 20 20 Blood Pressure 142/66 H Pulse Oximetry 95 BMI result Body Mass Index 26.3 Const General: cooperative and no acute distress Orientation/consciousness: oriented to person and oriented to place Limitations: no limitations HENMT Head: Yes normal to inspection, Yes normocephalic and Yes atraumatic Ears: external ears normal General nose exam: Normal external nose present Face and sinus: Yes normal facial exam Mouth: Normal oral and palatal mucosa present Throat: Yes posterior oropharynx normal Eyes General: appearance normal, both eyes and all related structures Pupils: Equal, round and reactive pupils present Neck Neck: Yes normal visual inspection, Yes no lymphadenopathy, Yes trachea midline and Yes supple Chest Chest palpation & inspection: normal inspection of the chest and normal palpation of entire chest wall Resp Effort & Inspection: normal respiratory effort and able to speak in complete sentences Auscultation: clear to auscultation bilaterally Cardio Rate: regular rate Rhythm: regular rhythm Heart sounds: S1 normal heart sound present, S2 normal heart sound present and no murmurs GI Inspection: Yes normal to inspection Palpation (GI): Soft to palpation, Tenderness to palpation present (GI) in the epigastrum (Mild) and in the RUQ (Moderate) and no guarding Auscultation: normal bowel sounds General: Yes no CVA tenderness Back/Spine/Pelvis Back: no CVA tenderness Skin General skin exam: no rashes or lesions noted Neuro General: oriented to person and oriented to place Cranial nerves: Yes CN's II-XII intact bilaterally and Yes Equal, round and reactive pupils present Cognition (Neuro): normal cognition Motor exam (neuro): 5/5 motor strength present throughout Extrem General: Yes normal to inspection Psych Appearance: grossly normal Speech and movement: Normal speech and movement present Affect: normal affect Attitude: cooperative Thought process: Normal thought process present Thought content: Normal thought content present Course Course Course Narrative: 86-year-old female who presents emergency department for evaluation of 6 days epigastric and right upper quadrant pain with with associated nausea, dry heaves, anorexia, fatigue and dizziness. Patient had similar discomfort in February in March of 2021 without a clear etiology. Vital signs revealed an elevated blood pressure of 153/59 otherwise unremarkable. Examination revealed mild epigastric tenderness and moderate right upper quadrant tenderness. Differential includes but is not limited to biliary disease, gallstones, pancreatitis, gastritis, myocardial infarction, pneumonia, diverticulitis. Laboratory evaluation was ordered. I will obtain an EKG, chest x-ray and CT scan of the abdomen pelvis without IV contrast. Patient's pain was treated with Toradol 15 mg IV and her nausea was treated with Zofran 4 mg IV. She was ordered to get normal saline x1 L secondary to her decreased oral intake. 1816: Laboratory evaluation: Anemia with an H&H of 10.9 and 31.9-chronic, low bicarb 18, elevated BUN and creatinine 45 and 1.59 which is above baseline of 251.0 on 07/27/2021. Elevated AST, ALT and alk-phos of 336, 265 and 499. Elevated total bilirubin of 1.9. COVID-19 negative. Direct bilirubin, Lipase and influenza pending. EKG interpretation: Normal sinus rhythm with inverted T-wave in V1 with no STEMI or ischemic changes. Radiology evaluation: CT abdomen pelvis without IV contrast radiology reading: IMPRESSION: -Prominent intrahepatic and extrahepatic biliary ductal dilatation down to the ampulla. -Fine gravel-like gallstones in dependent gallbladder. No pericholecystic inflammatory change. -Question punctate faint poorly minimal right calculi near the ampulla. ? -Pancreas unremarkable. ? -No bowel obstruction or inflammatory changes in bowel or mesentery. ? 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 Follow-up within 3 years recommended. Patient's presentation and findings are consistent with biliary obstruction most likely secondary to a common bile duct stone. I did order an ultrasound to further evaluate her gallbladder and liver. 1913: Right upper quadrant ultrasound revealed similar reading to CT scan dilated common bile duct measuring 1.4-1.7 cm with no gallbladder distension, gallbladder distension, gallbladder wall thickening or daniele cholecystic fluid. I will discuss the patient's presentation with the covering surgeon and pump attendant, the patient will need to be admitted to the hospitalist for further management she got no relief of her pain with the IV Toradol and she was ordered to get morphine 4 mg IV. 2024: Patient's lipase was elevated 4906 which is consistent with gallstone pancreatitis. I did discuss the patient's presentation over tiger text with the covering surgeon, Dr. Nobles and with the covering hospitalist Dr. De La Vega. After this discussion, I did order blood cultures x2 and Zosyn 4.5 g IV. Patient's pain is significantly better after the IV morphine. I did discuss the patient's presentation with the covering hospitalist, Dr. Nielsen and the patient will be admitted for further management. MDM - Abdominal Pain Lab Data Result diagrams: 01/02/22 17:35 01/02/22 17:35 Labs: Lab Results 01/02/22 01/02/22 01/02/22 Range/Units 17:35 17:35 17:35 WBC 7.9 (4.8-10.8) X10*3/uL RBC 3.54 L (4.20-5.50) X10*6/uL Hgb 10.9 L (12.0-16.0) g/dl Hct 31.9 L (37.0-47.0) % MCV 90.1 (80.0-98.0) fL MCH 30.8 (27.0-33.0) pg MCHC 34.2 (31.0-35.0) g/dl RDW 12.3 (11.0-16.0) % Plt Count 210 (160-400) X10*3/uL MPV 9.7 (9.4-12.3) fL Immature Gran % (Auto) 0.3 (0.0-0.4) % Neut % (Auto) 81.3 H (45-73) % Lymph % (Auto) 9.0 L (20-40) % [place] % (Auto) 8.9 (2-11) % Eos % (Auto) 0.4 (0-4) % Baso % (Auto) 0.1 (0-2) % Lymph # (Auto) 0.7 L (1.2-4.9) X10*3/uL [place] # (Auto) 0.7 (0.1-1.2) X10*3/uL Eos # (Auto) 0.0 (0.0-0.4) X10*3/uL Baso # (Auto) 0.0 (0.0-0.2) X10*3/uL Abs Immat Gran (auto) 0.02 (0.00-0.03) X10*3/uL Absolute Neuts (auto) 6.4 (2.0-8.3) x10*3/uL Absolute Nucleated RBC 0.000 (0.0-0.012) X10*3/uL Nucleated RBC % (auto) 0.0 (0.0-0.2) /100WBC PT 11.4 (9.9-13.0) SEC INR 1.0 (0.9-1.1) APTT 29.5 (24.1-38.0) SEC Sodium 141 (135-145) mmol/L Potassium 3.7 (3.3-5.1) mmol/L Chloride 106 (96-108) mmol/L Carbon Dioxide 18 L (22-29) mmol/L Anion Gap 21 H (12-20) BUN 45 H (9-16) mg/dL Creatinine 1.59 H (0.5-1.4) mg/dL Estim Creat Clear Calc 22.0 Estimated GFR 31 Random Glucose 103 (60-115) mg/dL Lactic Acid (0.5-2.0) mmol/L Calcium 9.4 (8.4-10.2) mg/dL Total Bilirubin 1.9 H (0.0-1.0) mg/dL Direct Bilirubin (0.0-0.5) mg/dL AST 336 H (5-31) U/L ALT 267 H (0-31) U/L Alkaline Phosphatase 449 H D (39-117) U/L Troponin I High Sens (<3.5-17.0) ng/L Total Protein 7.1 (6.5-8.0) g/dL Albumin 4.0 (3.5-5.0) g/dL Lipase 4906 H (8-78) U/L Urine Color Urine Appearance Urine pH (5.0-8.0) Ur Specific [place] (1.005-1.025) Urine Protein (NEG-TRACE) MG/DL Urine Glucose (UA) (NEG) MG/DL Urine Ketones (NEG) MG/DL Urine Blood (NEG) Urine Nitrite (NEG) Ur Leukocyte Esterase (NEG) Urine RBC (0) /HPF Urine WBC (0-4) /HPF Ur Squamous Epith Cells /LPF Urine Bacteria /LPF COVID-19 (SARAH) (Negative) COVID-19 Clin Com Influenza Type A (LISA) (Negative) Influenza Type B (LISA) (Negative) Influenza A & B Note 01/02/22 01/02/22 01/02/22 Range/Units 17:35 17:35 18:04 WBC (4.8-10.8) X10*3/uL RBC (4.20-5.50) X10*6/uL Hgb (12.0-16.0) g/dl Hct (37.0-47.0) % MCV (80.0-98.0) fL MCH (27.0-33.0) pg MCHC (31.0-35.0) g/dl RDW (11.0-16.0) % Plt Count (160-400) X10*3/uL MPV (9.4-12.3) fL Immature Gran % (Auto) (0.0-0.4) % Neut % (Auto) (45-73) % Lymph % (Auto) (20-40) % [place] % (Auto) (2-11) % Eos % (Auto) (0-4) % Baso % (Auto) (0-2) % Lymph # (Auto) (1.2-4.9) X10*3/uL [place] # (Auto) (0.1-1.2) X10*3/uL Eos # (Auto) (0.0-0.4) X10*3/uL Baso # (Auto) (0.0-0.2) X10*3/uL Abs Immat Gran (auto) (0.00-0.03) X10*3/uL Absolute Neuts (auto) (2.0-8.3) x10*3/uL Absolute Nucleated RBC (0.0-0.012) X10*3/uL Nucleated RBC % (auto) (0.0-0.2) /100WBC PT (9.9-13.0) SEC INR (0.9-1.1) APTT (24.1-38.0) SEC Sodium (135-145) mmol/L Potassium (3.3-5.1) mmol/L Chloride (96-108) mmol/L Carbon Dioxide (22-29) mmol/L Anion Gap (12-20) BUN (9-16) mg/dL Creatinine (0.5-1.4) mg/dL Estim Creat Clear Calc Estimated GFR Random Glucose (60-115) mg/dL Lactic Acid 2.0 (0.5-2.0) mmol/L Calcium (8.4-10.2) mg/dL Total Bilirubin (0.0-1.0) mg/dL Direct Bilirubin (0.0-0.5) mg/dL AST (5-31) U/L ALT (0-31) U/L Alkaline Phosphatase (39-117) U/L Troponin I High Sens 12.1 (<3.5-17.0) ng/L Total Protein (6.5-8.0) g/dL Albumin (3.5-5.0) g/dL Lipase (8-78) U/L Urine Color Urine Appearance Urine pH (5.0-8.0) Ur Specific [place] (1.005-1.025) Urine Protein (NEG-TRACE) MG/DL Urine Glucose (UA) (NEG) MG/DL Urine Ketones (NEG) MG/DL Urine Blood (NEG) Urine Nitrite (NEG) Ur Leukocyte Esterase (NEG) Urine RBC (0) /HPF Urine WBC (0-4) /HPF Ur Squamous Epith Cells /LPF Urine Bacteria /LPF COVID-19 (SARAH) (Negative) COVID-19 Clin Com Influenza Type A (LISA) Negative (Negative) Influenza Type B (LISA) Negative (Negative) Influenza A & B Note See Note 01/02/22 01/02/22 01/02/22 Range/Units 18:04 19:47 20:02 WBC (4.8-10.8) X10*3/uL RBC (4.20-5.50) X10*6/uL Hgb (12.0-16.0) g/dl Hct (37.0-47.0) % MCV (80.0-98.0) fL MCH (27.0-33.0) pg MCHC (31.0-35.0) g/dl RDW (11.0-16.0) % Plt Count (160-400) X10*3/uL MPV (9.4-12.3) fL Immature Gran % (Auto) (0.0-0.4) % Neut % (Auto) (45-73) % Lymph % (Auto) (20-40) % [place] % (Auto) (2-11) % Eos % (Auto) (0-4) % Baso % (Auto) (0-2) % Lymph # (Auto) (1.2-4.9) X10*3/uL [place] # (Auto) (0.1-1.2) X10*3/uL Eos # (Auto) (0.0-0.4) X10*3/uL Baso # (Auto) (0.0-0.2) X10*3/uL Abs Immat Gran (auto) (0.00-0.03) X10*3/uL Absolute Neuts (auto) (2.0-8.3) x10*3/uL Absolute Nucleated RBC (0.0-0.012) X10*3/uL Nucleated RBC % (auto) (0.0-0.2) /100WBC PT (9.9-13.0) SEC INR (0.9-1.1) APTT (24.1-38.0) SEC Sodium (135-145) mmol/L Potassium (3.3-5.1) mmol/L Chloride (96-108) mmol/L Carbon Dioxide (22-29) mmol/L Anion Gap (12-20) BUN (9-16) mg/dL Creatinine (0.5-1.4) mg/dL Estim Creat Clear Calc Estimated GFR Random Glucose (60-115) mg/dL Lactic Acid (0.5-2.0) mmol/L Calcium (8.4-10.2) mg/dL Total Bilirubin (0.0-1.0) mg/dL Direct Bilirubin 1.5 H (0.0-0.5) mg/dL AST (5-31) U/L ALT (0-31) U/L Alkaline Phosphatase (39-117) U/L Troponin I High Sens (<3.5-17.0) ng/L Total Protein (6.5-8.0) g/dL Albumin (3.5-5.0) g/dL Lipase (8-78) U/L Urine Color YELLOW Urine Appearance HAZY Urine pH 5.0 (5.0-8.0) Ur Specific [place] 1.020 (1.005-1.025) Urine Protein 1+ H (NEG-TRACE) MG/DL Urine Glucose (UA) NEG (NEG) MG/DL Urine Ketones 5 (NEG) MG/DL Urine Blood NEG (NEG) Urine Nitrite NEG (NEG) Ur Leukocyte Esterase 2+ H (NEG) Urine RBC 0-2 (0) /HPF Urine WBC 76-150 H (0-4) /HPF Ur Squamous Epith Cells 2+ /LPF Urine Bacteria 4+ /LPF COVID-19 (SARAH) Negative (Negative) COVID-19 Clin Com See Note Influenza Type A (LISA) (Negative) Influenza Type B (LISA) (Negative) Influenza A & B Note 01/02/22 01/02/22 Range/Units 20:03 20:03 WBC (4.8-10.8) X10*3/uL RBC (4.20-5.50) X10*6/uL Hgb (12.0-16.0) g/dl Hct (37.0-47.0) % MCV (80.0-98.0) fL MCH (27.0-33.0) pg MCHC (31.0-35.0) g/dl RDW (11.0-16.0) % Plt Count (160-400) X10*3/uL MPV (9.4-12.3) fL Immature Gran % (Auto) (0.0-0.4) % Neut % (Auto) (45-73) % Lymph % (Auto) (20-40) % [place] % (Auto) (2-11) % Eos % (Auto) (0-4) % Baso % (Auto) (0-2) % Lymph # (Auto) (1.2-4.9) X10*3/uL [place] # (Auto) (0.1-1.2) X10*3/uL Eos # (Auto) (0.0-0.4) X10*3/uL Baso # (Auto) (0.0-0.2) X10*3/uL Abs Immat Gran (auto) (0.00-0.03) X10*3/uL Absolute Neuts (auto) (2.0-8.3) x10*3/uL Absolute Nucleated RBC (0.0-0.012) X10*3/uL Nucleated RBC % (auto) (0.0-0.2) /100WBC PT (9.9-13.0) SEC INR (0.9-1.1) APTT (24.1-38.0) SEC Sodium (135-145) mmol/L Potassium (3.3-5.1) mmol/L Chloride (96-108) mmol/L Carbon Dioxide (22-29) mmol/L Anion Gap (12-20) BUN (9-16) mg/dL Creatinine (0.5-1.4) mg/dL Estim Creat Clear Calc Estimated GFR Random Glucose (60-115) mg/dL Lactic Acid (0.5-2.0) mmol/L Calcium (8.4-10.2) mg/dL Total Bilirubin (0.0-1.0) mg/dL Direct Bilirubin (0.0-0.5) mg/dL AST (5-31) U/L ALT (0-31) U/L Alkaline Phosphatase (39-117) U/L Troponin I High Sens (<3.5-17.0) ng/L Total Protein (6.5-8.0) g/dL Albumin (3.5-5.0) g/dL Lipase (8-78) U/L Urine Color Urine Appearance Urine pH (5.0-8.0) Ur Specific [place] (1.005-1.025) Urine Protein (NEG-TRACE) MG/DL Urine Glucose (UA) (NEG) MG/DL Urine Ketones (NEG) MG/DL Urine Blood (NEG) Urine Nitrite (NEG) Ur Leukocyte Esterase (NEG) Urine RBC (0) /HPF Urine WBC (0-4) /HPF Ur Squamous Epith Cells /LPF Urine Bacteria /LPF COVID-19 (SARAH) Cancelled (Negative) COVID-19 Clin Com Cancelled Influenza Type A (LISA) Cancelled (Negative) Influenza Type B (LISA) Cancelled (Negative) Influenza A & B Note Cancelled ECG Data Attestation: I personally reviewed and interpreted this ECG as follows: Interpretation: 1623: Normal sinus rhythm with a rate of 60, normal MI interval, QRS and QTC intervals, inverted T-wave in V1, no ST segment elevation, no ST segment depression, no PACs, no PVCs. This is a normal EKG. Critical Care Time Critical Care Time Critical Care Time: Yes Total Critical Care Time: 45 Attestation: Critical Care: The patient was critically ill with a high probability of imminent or life threatening deterioration. I spent greater than 30 minutes of discontinuous time evaluating the patient,delivering critical care at the bedside, discussing and evaluating pertinent data with consultants. Critical care time does not include time spent performing separately billable procedures or teaching. Total time spent performing critical care was 45 minutes. Discharge Plan Discharge Patient Disposition: Admitted As Inpatient Prescriptions: No Action simvastatin 20 mg tablet 20 mg PO BEDTIME Qty: 90 8RF nifedipine 90 mg tablet extended release 24hr 90 mg PO DAILY 0RF pantoprazole 40 mg tablet,delayed release (DR/EC) 40 mg PO DAILY@0630 0RF aspirin 81 mg Tablet,Chewable 81 mg PO DAILY 0RF psyllium husk [Metamucil] 0.52 gram Capsule 1.04 g PO BEDTIME 0RF lorazepam 0.5 mg Tablet 0.5 mg PO DAILY PRN (Reason: Anxiety) 0RF ergocalciferol (vitamin D2) 1,250 mcg (50,000 unit) capsule 1,250 mcg PO Q2W 0RF chlorthalidone 25 mg tablet 12.5 mg PO DAILY 0RF carvedilol 3.125 mg tablet 3.125 mg PO BID 0RF Rx Instructions: must administer with a meal/food
--- NOTE | 2022-01-02 16:15 | PC.NURSE ---
pt to radiology
[2022-01-02 17:41] LABS: MANUAL DIFF FLAG NO
[2022-01-02] MEDS: Ketorolac Tromethamine 15 MG/ML VIAL IVPUSH (17:42)
[2022-01-02] MEDS: 0.9 % Sodium Chloride 1,000 ML 999 ML IV (17:42)
[2022-01-02 17:43] LABS: Basophils Percent Auto 0.1 % (0-2); Eosinophils Percent Auto 0.4 % (0-4); Hematocrit 31.9 % (37.0-47.0); Hemoglobin 10.9 g/dl (12.0-16.0); Imm Gran Abs Auto 0.02 X10*3/uL (0.00-0.03); Imm Gran Pct Auto 0.3 % (0.0-0.4); Lymphocytes Absolute Auto 0.7 X10*3/uL (1.2-4.9); Mean Corpuscular HGB Conc 34.2 g/dl (31.0-35.0); Mean Corpuscular Hemoglobin 30.8 pg (27.0-33.0); Mean Corpuscular Volume 90.1 fL (80.0-98.0); Mean Platelet Volume 9.7 fL (9.4-12.3); Monocytes Absolute Auto 0.7 X10*3/uL (0.1-1.2); Monocytes Percent Auto 8.9 % (2-11); Neutrophils Absolute Auto 6.4 x10*3/uL (2.0-8.3); Neutrophils Percent Auto 81.3 % (45-73); Platelet Count 210 X10*3/uL (160-400); Red Blood Count 3.54 X10*6/uL (4.20-5.50); Red Cell Distribution Width 12.3 % (11.0-16.0); White Blood Count 7.9 X10*3/uL (4.8-10.8)
[2022-01-02] MEDS: ondansetron HCL 4 MG/2 ML VIAL IVPUSH (17:43)
[2022-01-02 17:48] LABS: Prothrombin Time 11.4 SEC (9.9-13.0)
[2022-01-02 17:51] LABS: Partial Thromboplastin Time 29.5 SEC (24.1-38.0)
[2022-01-02 18:05] LABS: Alanine Aminotransferase 267 U/L (0-31); Alkaline Phosphatase 449 U/L (39-117); Anion Gap 21 (12-20); Aspartate Amino Transferase 336 U/L (5-31); Bilirubin Total 1.9 mg/dL (0.0-1.0); Blood Urea Nitrogen 45 mg/dL (9-16); Calcium 9.4 mg/dL (8.4-10.2); Carbon Dioxide 18 mmol/L (22-29); Chloride 106 mmol/L (96-108); Estimated Glomerular Filt Rate 31; Glucose Random 103 mg/dL (60-115); Potassium 3.7 mmol/L (3.3-5.1); Sodium 141 mmol/L (135-145); Total Protein 7.1 g/dL (6.5-8.0)
[2022-01-02 18:06] LABS: Troponin-I High Sensitivity 12.1 ng/L (<3.5-17.0)
[2022-01-02 18:28] LABS: COVID-19 Test Negative (Negative)
[2022-01-02 18:33] LABS: Influenza A Negative (Negative); Influenza B2 Negative (Negative)
--- NOTE | 2022-01-02 18:59 | PC.NURSE ---
pt reporting increased pain, provider notified.
[2022-01-02] MEDS: Morphine Sulfate 4 MG/ML CARTRIDGE IVPUSH (19:23)
--- NOTE | 2022-01-02 19:43 | PC.NURSE ---
pt a&ox3, vss, pvc monitor applied - NSR. pt medicated per provider order. urine sample obtained - pt used bedside commode w assistance. pt reporting decreasing pain from morphine - pt feels almost normal. nausea resolved. no new orders at this time.
[2022-01-02 19:55] LABS: Appearance Urine HAZY; Color Urine YELLOW; Glucose Urine UA NEG (NEG); Leukocyte Esterase Urine 2+ (NEG); Nitrite Urine NEG (NEG); UACC Culture Trigger YES; Urine Blood NEG (NEG); Urine Ketones 5 MG/DL (NEG); Urine Protein 1+ MG/DL (NEG-TRACE)
[2022-01-02 19:55] LABS: Lipase 4906 U/L (8-78)
[2022-01-02 20:03] LABS: RBC Urine 0-2 /HPF (0)
[2022-01-02 20:04] LABS: Bacteria Urine 4+ /LPF; Squamous Epithelial Cell Urine 2+ /LPF
[2022-01-02 20:26] LABS: Bilirubin Direct 1.5 mg/dL (0.0-0.5)
[2022-01-02] MEDS: Piperacillin Sodium/Tazobactam 4.5 GM in 0.9 % Sodium Chloride 100 ML IV (21:26)
--- NOTE | 2022-01-02 21:34 | PHA.MEDREC ---
Pharmacy Consult ? Medication Reconciliation Pharmacy has completed the medication reconciliation. No remarkable issues. Sarah Hawthorne, [facility]
--- NOTE | 2022-01-02 21:41 | PM.IMHP ---
History of Present Illness Date of Service: 01/02/22 Chief Complaint: abd pain This is an 86-year-old female with past medical history of HLD, HTN, and history of aortic stenosis who presents to the hospital with complaints of epigastric abdominal pain. Patient reports that the pain started on , localized to the epigastric region, radiating to the back, she took Tylenol and some role laid with some relief over the weekend, but then her pain returned this morning. Patient reports the pain to be 10/10, was again epigastric radiating to the back, not relieved by Tylenol will this time, no exacerbating factors, not associated with eating food. She had nausea with no vomiting, no diarrhea constipation,. Patient denies any fever chills, no urinary symptoms and no lower extremity edema. She has no headache or change in vision, no numbness or tingling. On arrival to the ED patient hemodynamically stable with no significant abnormal vitals Labs are significant for WBC count of 7.9, hemoglobin of 10.9, hematocrit 31.9, BUN of 45, creatinine of 1.59 with a baseline of around 1.06, bilirubin of 1.9, AST of 336, ALT of 267, alk-phos of 449, lipase 4906 UA positive for leukocyte Estrace and WBC. COVID-19 and influenza negative, Abdominal pelvic CT shows prominent intrahepatic and extrahepatic biliary duct dilatation down to the ampulla, fine gravel-like gallstones independent gallbladder, no pericholecystic inflammatory changes. Abdominal ultrasound shows gallstones are once again demonstrated with dilated common bile duct. GI as well as general surgery notified, patient started on IV antibiotics and will be admitted for further management Review of Systems Review of Systems: Yes all other systems are reviewed and are negative [facility] Medical History Aortic stenosis Biliary colic Hyperlipidemia Hypertension Hypertension Family History Father Heart disease Mother No problems noted. Brother Heart disease Surgical History Hammertoe, bilateral Total knee replacement status Social History Household Members: Spouse Housing: House Do you presently have visiting nurse or other home services: No Unable to assess alcohol history related to: Unknown Alcohol intake: current Alcohol intake frequency: holidays/special occasions only Alcohol type: hard liquor Patient Tobacco Use Status: Former Tobacco user Tobacco use type: Cigarette e-Cigarette/Vaping Use: Never Used Second Hand Smoke Exposure: No Use of substances other than those prescribed or required for medical reasons: No Have you been hit, kicked, punched, or otherwise hurt by someone within the past year? If so, by whom?: No Do you feel safe in your current relationship?: Yes Is there a partner from a previous relationship who is making you feel unsafe now?: No Are you made to feel afraid or neglected: No Advance Directives: Yes Advance Directives on File: Yes Advance Directives Date on File: 02/17/21 Do you have thoughts of harming others: None Do you have a plan to hurt others: No Plan Recently lost weight without trying: Unsure Nutrition Risks: Poor intake 0-25% >4 days Patient : No : No Poor oral hygiene: No service: No Current occupational status: retired Cognitive needs: No Hearing needs: No Vision needs: No Meds Allergies Allergy/AdvReac Type Severity Reaction Status Date / Time No Known Drug Intolerances Allergy Unknown NOT Verified 11/08/21 14:48 APPLICABLE Active Medications: Current Medications Acetaminophen (Acetaminophen Supp 650 Mg Supp.Rect) 650 mg [place] Q6H PRN PRN Reason: Pain, Mild (Pain Scale 1-3) Lactated Ringer's (Lr) 1,000 mls @ 200 mls/hr IVCONT .Q5H MALOU Metronidazole (Flagyl) 500 mg in 100 mls @ 100 mls/hr IV Q8H MALOU Ceftriaxone Sodium 1 gm/ (Sodium Chloride) 50 mls @ 100 mls/hr IV Q24H [facility] Morphine Sulfate (Morphine Sulfate 4 Mg/Ml Cartridge) 4 mg IVPUSH Q4H PRN; Protocol PRN Reason: Pain, Severe (Pain Scale 7-10) Ondansetron HCl (Ondansetron Hcl 4 Mg/2 Ml Vial) 4 mg IVPUSH Q8H PRN PRN Reason: Nausea and Vomiting Pharmacy Consult (Consult Rx Perform Med Rec) 1 each MISCELLANE ONCE PRN PRN Reason: Consult order Sodium Chloride (0.9 % Sodium Chloride Flush 3 Ml Syringe) 3 ml IVFLUSH QSHIFT [facility] Home Medications Medication Instructions Recorded Confirmed Last Taken Type ergocalciferol (vitamin D2) 1,250 1,250 mcg PO Q2W 09/30/20 01/02/22 02/12/21 History mcg (50,000 unit) capsule aspirin 81 mg chewable tablet 81 mg PO BEDTIME 02/16/21 01/02/22 01/01/22 History lorazepam 0.5 mg tablet 0.5 mg PO DAILY PRN 02/16/21 01/02/22 Unknown History nifedipine 90 mg tablet,extended 90 mg PO DAILY 02/16/21 01/02/22 01/02/22 History release 24 hr pantoprazole 40 mg tablet,delayed 40 mg PO DAILY@0630 02/16/21 01/02/22 01/02/22 History release psyllium husk 0.52 gram capsule 1.04 g PO BEDTIME PRN 02/16/21 01/02/22 Unknown History (Metamucil) chlorthalidone 25 mg tablet 12.5 mg PO DAILY 10/26/21 01/02/22 01/02/22 History carvedilol 6.25 mg tablet 1 tab PO BID 01/02/22 01/02/22 Unknown History Physical Exam Vital Signs and Narrative: Vital Signs: Last Vital Signs Temp 97.9 F 01/02/22 15:53 Pulse 64 01/02/22 20:19 Resp 20 01/02/22 20:19 BP 142/66 H 01/02/22 20:19 Pulse Ox 95 01/02/22 20:19 BMI result Body Mass Index 26.3 Const: General: cooperative and no acute distress Orientation/consciousness: patient oriented x3 Eyes: General: appearance normal, both eyes and all related structures Pupils: Equal, round and reactive pupils present Resp: Effort & Inspection: normal respiratory effort Auscultation: clear to auscultation bilaterally Cardio: Rate: regular rate Rhythm: regular rhythm GI: Other: Epigastric tenderness, and guarding Right upper quadrant tenderness Palpation (GI): Soft to palpation Auscultation: normal bowel sounds Skin: General skin exam: no rashes or lesions noted Neuro: General: patient oriented x3 Cranial nerves: Yes Equal, round and reactive pupils present Cognition (Neuro): normal cognition Extrem: General: Yes normal to inspection and Yes no pedal edema Results Labs CBC and Chem 7: 01/02/22 17:35 01/02/22 17:35 Labs: Laboratory Results - last 24 hr 01/02/22 01/02/22 01/02/22 17:35 17:35 17:35 MCV 90.1 MCH 30.8 MCHC 34.2 RDW 12.3 Plt Count 210 MPV 9.7 Immature Gran % (Auto) 0.3 Neut % (Auto) 81.3 H Lymph % (Auto) 9.0 L [place] % (Auto) 8.9 Eos % (Auto) 0.4 Baso % (Auto) 0.1 Lymph # (Auto) 0.7 L [place] # (Auto) 0.7 Eos # (Auto) 0.0 Baso # (Auto) 0.0 Abs Immat Gran (auto) 0.02 Absolute Neuts (auto) 6.4 Absolute Nucleated RBC 0.000 Nucleated RBC % (auto) 0.0 PT 11.4 INR 1.0 APTT 29.5 Anion Gap 21 H Estim Creat Clear Calc 22.0 Estimated GFR 31 Random Glucose 103 Lactic Acid Calcium 9.4 Total Bilirubin 1.9 H Direct Bilirubin AST 336 H ALT 267 H Alkaline Phosphatase 449 H D Troponin I High Sens Total Protein 7.1 Albumin 4.0 Lipase 4906 H Urine Color Urine Appearance Urine pH Ur Specific [place] Urine Protein Urine Glucose (UA) Urine Ketones Urine Blood Urine Nitrite Ur Leukocyte Esterase Urine RBC Urine WBC Ur Squamous Epith Cells Urine Bacteria COVID-19 (SARAH) COVID-19 Clin Com Influenza Type A (LISA) Influenza Type B (LISA) Influenza A & B Note 01/02/22 01/02/22 01/02/22 17:35 17:35 18:04 MCV MCH MCHC RDW Plt Count MPV Immature Gran % (Auto) Neut % (Auto) Lymph % (Auto) [place] % (Auto) Eos % (Auto) Baso % (Auto) Lymph # (Auto) [place] # (Auto) Eos # (Auto) Baso # (Auto) Abs Immat Gran (auto) Absolute Neuts (auto) Absolute Nucleated RBC Nucleated RBC % (auto) PT INR APTT Anion Gap Estim Creat Clear Calc Estimated GFR Random Glucose Lactic Acid 2.0 Calcium Total Bilirubin Direct Bilirubin AST ALT Alkaline Phosphatase Troponin I High Sens 12.1 Total Protein Albumin Lipase Urine Color Urine Appearance Urine pH Ur Specific [place] Urine Protein Urine Glucose (UA) Urine Ketones Urine Blood Urine Nitrite Ur Leukocyte Esterase Urine RBC Urine WBC Ur Squamous Epith Cells Urine Bacteria COVID-19 (SARAH) COVID-19 Clin Com Influenza Type A (LISA) Negative Influenza Type B (LISA) Negative Influenza A & B Note See Note 01/02/22 01/02/22 01/02/22 18:04 19:47 20:02 MCV MCH MCHC RDW Plt Count MPV Immature Gran % (Auto) Neut % (Auto) Lymph % (Auto) [place] % (Auto) Eos % (Auto) Baso % (Auto) Lymph # (Auto) [place] # (Auto) Eos # (Auto) Baso # (Auto) Abs Immat Gran (auto) Absolute Neuts (auto) Absolute Nucleated RBC Nucleated RBC % (auto) PT INR APTT Anion Gap Estim Creat Clear Calc Estimated GFR Random Glucose Lactic Acid Calcium Total Bilirubin Direct Bilirubin 1.5 H AST ALT Alkaline Phosphatase Troponin I High Sens Total Protein Albumin Lipase Urine Color YELLOW Urine Appearance HAZY Urine pH 5.0 Ur Specific [place] 1.020 Urine Protein 1+ H Urine Glucose (UA) NEG Urine Ketones 5 Urine Blood NEG Urine Nitrite NEG Ur Leukocyte Esterase 2+ H Urine RBC 0-2 Urine WBC 76-150 H Ur Squamous Epith Cells 2+ Urine Bacteria 4+ COVID-19 (SARAH) Negative COVID-19 Clin Com See Note Influenza Type A (LISA) Influenza Type B (LISA) Influenza A & B Note 01/02/22 01/02/22 20:03 20:03 MCV MCH MCHC RDW Plt Count MPV Immature Gran % (Auto) Neut % (Auto) Lymph % (Auto) [place] % (Auto) Eos % (Auto) Baso % (Auto) Lymph # (Auto) [place] # (Auto) Eos # (Auto) Baso # (Auto) Abs Immat Gran (auto) Absolute Neuts (auto) Absolute Nucleated RBC Nucleated RBC % (auto) PT INR APTT Anion Gap Estim Creat Clear Calc Estimated GFR Random Glucose Lactic Acid Calcium Total Bilirubin Direct Bilirubin AST ALT Alkaline Phosphatase Troponin I High Sens Total Protein Albumin Lipase Urine Color Urine Appearance Urine pH Ur Specific [place] Urine Protein Urine Glucose (UA) Urine Ketones Urine Blood Urine Nitrite Ur Leukocyte Esterase Urine RBC Urine WBC Ur Squamous Epith Cells Urine Bacteria COVID-19 (SARAH) Cancelled COVID-19 Clin Com Cancelled Influenza Type A (LISA) Cancelled Influenza Type B (LISA) Cancelled Influenza A & B Note Cancelled Imaging Radiologist's Impressions: Impressions Chest X-Ray 01/02/22 16:18 IMPRESSION: Unremarkable examination. Abdomen/Pelvis CT 01/02/22 16:19 IMPRESSION: -Prominent intrahepatic and extrahepatic biliary ductal dilatation down to the ampulla. -Fine gravel-like gallstones in dependent gallbladder. No pericholecystic inflammatory change. -Question punctate faint poorly minimal right calculi near the ampulla. -Pancreas unremarkable. -No bowel obstruction or inflammatory changes in bowel or mesentery. 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 Follow-up within 3 years recommended. Abdomen Ultrasound 01/02/22 17:57 IMPRESSION: Gallstones are once again demonstrated with prominent intrahepatic biliary ducts and dilated common bile duct. The CT scan earlier today suggested possible stones in the distal duct Assessment and Plan (1) Acute gallstone pancreatitis: Status: Acute Plan 86-year-old female past medical history hypertension hyperlipidemia presents to the hospital with complaints of epigastric pain found to have acute pancreatitis # acute gallstone pancreatitis - patient presents with epigastric abdominal pain found to have significant elevation in lipase - As well as CT abdominal finding of cholelithiasis - patient will be treated with aggressive IV fluid - IV antibiotics given the CT findings of dilated bile duct - for GI is consulted for possible MRCP - general surgery is also consulted for potential cholecystectomy - pain control # hypertension - stable - will resume her medications # hyperlipidemia - stable - continue home meds DVT prophylaxis: SCDs Given acute pancreatitis patient requires a medically necessary to night admission to the hospital for further management and monitoring Quality Stroke Does the patient have a stroke diagnosis?: No VTE Prior VTE?: No VTE Risk Level:: Medical - moderate - high VTE Device Contraindication: N/A - Device Ordered VTE Drug Contraindication: Treatment Not Indicated
[2022-01-02] MEDS: cefTRIAXone sodium 1 GM in 0.9 % Sodium Chloride 50 ML IV (22:22)
--- NOTE | 2022-01-02 22:33 | PC.NURSE ---
medicated per provider order.
[2022-01-02] MEDS: Lactated Ringers 1,000 ML 200 ML IVCONT (22:51)
[2022-01-02] MEDS: metroNIDAZOLE/NS 500 MG/100 ML PIGGYBACK 100 MG IV (22:56)
--- NOTE | 2022-01-02 23:00 | PC.NURSE ---
pt medicated per order
[2022-01-03] VITALS (7 sets, daily range): BP systolic 117–152; BP diastolic 54–71; PULSE 58–65; RESP 16–18; TEMP 36.6–37; O2SAT 92–97; BMI 28.9
[2022-01-03] MEDS: metroNIDAZOLE/NS 500 MG/100 ML PIGGYBACK 100 MG IV ×3 (04:20→20:16)
[2022-01-03] MEDS: Lactated Ringers 1,000 ML 200 ML IVCONT ×4 (04:21→23:35)
--- NOTE | 2022-01-03 06:05 | PM.GICN ---
History of Present Illness Data of Consult Service Date: 01/03/22 Requesting physician: Onelia Nielsen Primary Care Provider: Devin Hall MD HPI Reason for consult: gallstones, choledocholithiasis 86-year-old female w/ h/o ckd, aortic stenosis, htn, hlp who I m seeing for assessment of gallstones and choledocholithiasis Patient presented with 1 wk hx of colicky, burning, epigastric pain 9/10 in severity with radiaiton into the back and associated with nausea, poor appetite, fatigue and weakness. She denied fever but did have chills.?No melena or rectal bleeding. No nsaid use apart from aspirin she had similar pain in February in March of 2021 and had a negative cardiac workup, has hx of renal stones. Labs with elvated lipase, and abn LFT Imaging with gallstones and dilated cbd with possible stone material in distal cbd, personally reviewed I ordered an MRCP which revealed layering sludge in distal cbd with dilated CBD Review of Systems Review of Systems: Constitutional : No Weight loss, No Fever, ENT/Mouth : No sore throat, No Rhinorrhea Eyes: No Swelling, No Redness Cardiovascular : No Chest Pain, No SOB, No Edema Respiratory : No Cough, No Sputum, No Wheezing Gastrointestinal : see HPI Genitourinary : NO Dysuria, No Urinary Frequency, No Hematuria, No Urgency Musculoskeletal : No joint pain, No Myalgias, No Joint Swelling Skin : No Skin Lesions, No rash Neuro : + Weakness, No Numbness, No Dizziness, No Headache Psych : No Anxiety/Panic, No Depression Heme/Lymph: No Bruising, No Lymphadenopathy Endocrine : No Polyuria, No Polydipsia All other systems reviewed and are negative. [facility] Past Medical History Medical History Aortic stenosis Biliary colic Hyperlipidemia Hypertension Hypertension Family History Family History Father Heart disease Mother No problems noted. Brother Heart disease Surgical History Surgical History Hammertoe, bilateral Total knee replacement status Social History Social History Household Members: Spouse Housing: House Do you presently have visiting nurse or other home services: No Unable to assess alcohol history related to: Unknown Alcohol intake: current Alcohol intake frequency: holidays/special occasions only Alcohol type: hard liquor Patient Tobacco Use Status: Former Tobacco user Tobacco use type: Cigarette e-Cigarette/Vaping Use: Never Used Second Hand Smoke Exposure: No Use of substances other than those prescribed or required for medical reasons: No Currently Displaying Signs/Symptoms of Drug Intoxication Withdrawal: No Have you been hit, kicked, punched, or otherwise hurt by someone within the past year? If so, by whom?: No Do you feel safe in your current relationship?: Yes Is there a partner from a previous relationship who is making you feel unsafe now?: No Are you made to feel afraid or neglected: No Advance Directives: Yes Advance Directives on File: Yes Advance Directives Date on File: 02/17/21 Do you have thoughts of harming others: None Do you have a plan to hurt others: No Plan Recently lost weight without trying: Unsure Nutrition Risks: Poor intake 0-25% >4 days Patient : No : No Poor oral hygiene: No service: No Current occupational status: retired Cognitive needs: No Hearing needs: No Vision needs: No Meds Allergies Allergy/AdvReac Type Severity Reaction Status Date / Time No Known Drug Intolerances Allergy Unknown NOT Verified 11/08/21 14:48 APPLICABLE Active Medications: Current Medications Acetaminophen (Acetaminophen Supp 650 Mg Supp.Rect) 650 mg NC Q6H PRN PRN Reason: Pain, Mild (Pain Scale 1-3) Lactated Ringer's (Lr) 1,000 mls @ 200 mls/hr IVCONT .Q5H [facility] Last Admin: 01/03/22 04:21 Dose: 200 mls/hr Documented by: Metronidazole (Flagyl) 500 mg in 100 mls @ 100 mls/hr IV Q8H [facility] Last Infusion: 01/03/22 05:22 Dose: Infused Documented by: Ceftriaxone Sodium 1 gm/ (Sodium Chloride) 50 mls @ 100 mls/hr IV Q24H [facility] Last Infusion: 01/02/22 22:52 Dose: Infused Documented by: Morphine Sulfate (Morphine Sulfate 4 Mg/Ml Cartridge) 4 mg IVPUSH Q4H PRN; Protocol PRN Reason: Pain, Severe (Pain Scale 7-10) Ondansetron HCl (Ondansetron Hcl 4 Mg/2 Ml Vial) 4 mg IVPUSH Q8H PRN PRN Reason: Nausea and Vomiting Pharmacy Consult (Consult Rx Perform Med Rec) 1 each MISCELLANE ONCE PRN PRN Reason: Consult order Sodium Chloride (0.9 % Sodium Chloride Flush 3 Ml Syringe) [address] [facility] Last Admin: 01/03/22 00:16 Dose: Not Given Documented by: Home Medications Medication Instructions Recorded Confirmed Last Taken Type ergocalciferol (vitamin D2) 1,250 1,250 mcg PO Q2W 09/30/20 01/02/22 02/12/21 History mcg (50,000 unit) capsule aspirin 81 mg chewable tablet 81 mg PO BEDTIME 02/16/21 01/02/22 01/01/22 History lorazepam 0.5 mg tablet 0.5 mg PO DAILY PRN 02/16/21 01/02/22 Unknown History nifedipine 90 mg tablet,extended 90 mg PO DAILY 02/16/21 01/02/22 01/02/22 History release 24 hr pantoprazole 40 mg tablet,delayed 40 mg PO DAILY@0630 02/16/21 01/02/22 01/02/22 History release psyllium husk 0.52 gram capsule 1.04 g PO BEDTIME PRN 02/16/21 01/02/22 Unknown History (Metamucil) chlorthalidone 25 mg tablet 12.5 mg PO DAILY 10/26/21 01/02/22 01/02/22 History carvedilol 6.25 mg tablet 1 tab PO BID 01/02/22 01/02/22 Unknown History Physical Exam Vital Signs: Vital Signs: Last Vital Signs Temp 98.1 F 01/03/22 03:16 Pulse 61 01/03/22 03:16 Resp 18 01/03/22 03:16 BP 135/60 01/03/22 03:16 Pulse Ox 95 01/03/22 03:16 BMI result Body Mass Index 28.9 EXAM: GENERAL: The patient is well developed and nontoxic appearing, more comfortable with analgesia, mild jaundice VITAL SIGNS:see workflow HEENT: icteric sclerae, PERRLA, EOMI. Oropharynx clear. Moist mucous membranes. Conjunctivae appear well perfused. No thyroid mass. CHEST: Chest wall is nontender. HEART: Regular rate and rhythm with ESm 2/6 heard at left sternal edge, no radiation LUNGS: Clear to auscultation bilaterally. ABDOMEN: Soft, positive bowel sounds, tender RUQ and epigastrium with some guarding , no organomegaly.no flank tenderness SKIN: No rash, no excessive bruising, petechiae, or purpura. NEUROLOGIC: Cranial nerves II-XII intact without motor/sensory deficit. Psych: normal affect Results Labs CBC & Chem 7: 01/03/22 06:14 01/03/22 06:14 Labs: Short CBC 01/02/22 Range/Units 17:35 WBC 7.9 (4.8-10.8) X10*3/uL Hgb 10.9 L (12.0-16.0) g/dl Hct 31.9 L (37.0-47.0) % Plt Count 210 (160-400) X10*3/uL BMP 01/02/22 17:35 Sodium 141 Potassium 3.7 Chloride 106 Carbon Dioxide 18 L BUN 45 H Creatinine 1.59 H Calcium 9.4 Liver Function 01/02/22 01/02/22 Range/Units 17:35 20:02 Total Bilirubin 1.9 H (0.0-1.0) mg/dL Direct Bilirubin 1.5 H (0.0-0.5) mg/dL AST 336 H (5-31) U/L ALT 267 H (0-31) U/L Alkaline Phosphatase 449 H D (39-117) U/L Albumin 4.0 (3.5-5.0) g/dL Urine 01/02/22 Range/Units 19:47 Urine Color YELLOW Urine Appearance HAZY Urine pH 5.0 (5.0-8.0) Ur Specific [place] 1.020 (1.005-1.025) Urine Protein 1+ H (NEG-TRACE) MG/DL Urine Glucose (UA) NEG (NEG) MG/DL Imaging CT scan - abdomen: Attestation: I personally reviewed and interpreted this imaging study as follows: (dilated CBD, stones in CBD, faint calcification in distal CBD, atherosclerosis of aorta ) MRI - abdomen: Attestation: I personally reviewed and interpreted this imaging study as follows: (dilated cbd, sludge and tapering of distal cbd ) Assessment and Plan (1) Acute gallstone pancreatitis: Status: Acute Plan 1/ Upper abdominal pain with abn imaging and MRCP revealing sludge and debris in the CBD with dilation suggestive of choledocholithiasis PLAN: 1/ NPO after midnight 2/ cont ABX 3/ plan for ERCP tomorrow, risks and benefits of procedure discussed, including resolution of current sx, prevention of cholangitis vs risks of pancreatitis, infection, bleeding, perforation, anesthesia and procedural failure. she is happy to proceed. Procedures Date of Service Date of Service: 01/03/22
[2022-01-03] MEDS: Morphine Sulfate 4 MG/ML CARTRIDGE IVPUSH (06:18)
[2022-01-03 06:32] LABS: MANUAL DIFF FLAG NO
[2022-01-03 06:54] LABS: Basophils Percent Auto 0.1 % (0-2); Eosinophils Absolute Auto 0.1 X10*3/uL (0.0-0.4); Eosinophils Percent Auto 0.7 % (0-4); Hematocrit 30.7 % (37.0-47.0); Hemoglobin 10.2 g/dl (12.0-16.0); Imm Gran Abs Auto 0.01 X10*3/uL (0.00-0.03); Imm Gran Pct Auto 0.1 % (0.0-0.4); Lymphocytes Absolute Auto 0.8 X10*3/uL (1.2-4.9); Lymphocytes Percent Auto 10.6 % (20-40); Mean Corpuscular HGB Conc 33.2 g/dl (31.0-35.0); Mean Corpuscular Hemoglobin 30.2 pg (27.0-33.0); Mean Corpuscular Volume 90.8 fL (80.0-98.0); Mean Platelet Volume 10.2 fL (9.4-12.3); Monocytes Absolute Auto 0.5 X10*3/uL (0.1-1.2); Monocytes Percent Auto 7.3 % (2-11); Neutrophils Absolute Auto 5.8 x10*3/uL (2.0-8.3); Neutrophils Percent Auto 81.2 % (45-73); Platelet Count 202 X10*3/uL (160-400); Red Blood Count 3.38 X10*6/uL (4.20-5.50); Red Cell Distribution Width 12.7 % (11.0-16.0); White Blood Count 7.2 X10*3/uL (4.8-10.8)
[2022-01-03 07:21] LABS: Alanine Aminotransferase 322 U/L (0-31); Albumin Level 3.5 g/dL (3.5-5.0); Alkaline Phosphatase 377 U/L (39-117); Anion Gap 15 (12-20); Aspartate Amino Transferase 281 U/L (5-31); Bilirubin Direct 2.4 mg/dL (0.0-0.5); Bilirubin Total 2.9 mg/dL (0.0-1.0); Blood Urea Nitrogen 36 mg/dL (9-16); Calcium 8.9 mg/dL (8.4-10.2); Carbon Dioxide 24 mmol/L (22-29); Chloride 107 mmol/L (96-108); Creatinine Clr Calc Pharmacy 26.2; Estimated Glomerular Filt Rate 36; Glucose Random 103 mg/dL (60-115); Potassium 3.8 mmol/L (3.3-5.1); Sodium 142 mmol/L (135-145); Total Protein 6.1 g/dL (6.5-8.0)
[2022-01-03] MEDS: 0.9 % Sodium Chloride Flush 3 ML SYRINGE IVFLUSH ×2 (07:37→20:15)
[2022-01-03] MEDS: NIFEdipine ER 90 MG TAB.ER.24 PO (07:37)
[2022-01-03] MEDS: hydroCHLOROthiazide 12.5 MG TABLET PO (07:37)
[2022-01-03] MEDS: carvediloL 6.25 MG TABLET PO ×2 (07:39→20:15)
--- NOTE | 2022-01-03 08:09 | HO.PM.IMPN ---
Subjective Subjective Date of Service: 01/03/22 Interval History: Gallstone pancreatitis Review of Systems Patient still has right upper quadrant pain, also has some epigastric discomfort . Feel somewhat nauseated Otherwise denies any shortness of breath or chest pain or fever or chills or cough or phlegm or urinary complaints. Physical Exam Vital Signs: Vital Signs: Last Vital Signs Temp 98.4 F 01/03/22 07:26 Pulse 61 01/03/22 07:26 Resp 16 01/03/22 07:26 BP 152/71 H 01/03/22 07:26 Pulse Ox 92 01/03/22 07:26 BMI result Body Mass Index 28.9 Appearance: Alert.? Oriented X3.? not in distress.? cvs: rrr, [id number] , no murmur res: clear to auscultation ,no rhonchii or wheezing abd: no rebound or guarding ,ruq pain, bs present. ext pulses present , no cyanosis neuro: axo3 , nonfocal. Objective Data Active Medications Acetaminophen (Acetaminophen Supp 650 Mg Supp.Rect) 650 mg IN Q6H PRN PRN Reason: Pain, Mild (Pain Scale 1-3) Atorvastatin Calcium (Atorvastatin Calcium 10 Mg Tablet) 10 mg PO BEDTIME [facility] Carvedilol (Carvedilol 6.25 Mg Tablet) 6.25 mg PO BID [facility]; Protocol Last Admin: 01/03/22 07:39 Dose: 6.25 mg Documented by: GERMAN Comments: barcode not scanning Hydrochlorothiazide (Hydrochlorothiazide 12.5 Mg Tablet) 12.5 mg PO DAILY [facility] Last Admin: 01/03/22 07:37 Dose: 12.5 mg Documented by: GERMAN Lactated Ringer's (Lr) 1,000 mls @ 200 mls/hr IVCONT .Q5H [facility] Last Admin: 01/03/22 06:25 Dose: Not Given Documented by: MANFRED Non-Admin Reason: IV Running Metronidazole (Flagyl) 500 mg in 100 mls @ 100 mls/hr IV Q8H [facility] Last Infusion: 01/03/22 05:22 Dose: 0 mls/hr Documented by: MANFRED Ceftriaxone Sodium 1 gm/ (Sodium Chloride) 50 mls @ 100 mls/hr IV Q24H [facility] Last Infusion: 01/02/22 22:52 Dose: 0 mls/hr Documented by: EMILE Lorazepam (Lorazepam 0.5 Mg Tablet) 0.5 mg PO DAILY PRN PRN Reason: Anxiety Morphine Sulfate (Morphine Sulfate 4 Mg/Ml Cartridge) 4 mg IVPUSH Q4H PRN; Protocol PRN Reason: Pain, Severe (Pain Scale 7-10) Last Admin: 01/03/22 06:18 Dose: 4 mg Documented by: MANFRED Nifedipine (Nifedipine Er 90 Mg Tab.Er.24) 90 mg PO DAILY [facility]; Protocol Last Admin: 01/03/22 07:37 Dose: 90 mg Documented by: GERMAN Omeprazole (Omeprazole 20 Mg Capsule.Dr) 20 mg PO DAILY@0630 [facility] Last Admin: 01/03/22 06:24 Dose: Not Given Documented by: MANFRED Non-Admin Reason: NPO Ondansetron HCl (Ondansetron Hcl 4 Mg/2 Ml Vial) 4 mg IVPUSH Q8H PRN PRN Reason: Nausea and Vomiting Pharmacy Consult (Consult Rx Perform Med Rec) 1 each MISCELLANE ONCE PRN PRN Reason: Consult order Psyllium Hydrophilic Mucilloid (Psyllium Seed 3.4 Gm Powd.Pack) 3.4 gm PO BEDTIME PRN PRN Reason: Constipation Sodium Chloride (0.9 % Sodium Chloride Flush 3 Ml Syringe) 3 ml IVFLUSH QSHIFT [facility] Last Admin: 01/03/22 07:37 Dose: 3 ml Documented by: GERMAN Labs CBC & Chem 7: 01/03/22 06:14 01/03/22 06:14 Labs: Laboratory Results - last 24 hr 01/02/22 01/02/22 01/02/22 17:35 17:35 17:35 MCV 90.1 MCH 30.8 MCHC 34.2 RDW 12.3 Plt Count 210 MPV 9.7 Immature Gran % (Auto) 0.3 Neut % (Auto) 81.3 H Lymph % (Auto) 9.0 L [place] % (Auto) 8.9 Eos % (Auto) 0.4 Baso % (Auto) 0.1 Lymph # (Auto) 0.7 L [place] # (Auto) 0.7 Eos # (Auto) 0.0 Baso # (Auto) 0.0 Abs Immat Gran (auto) 0.02 Absolute Neuts (auto) 6.4 Absolute Nucleated RBC 0.000 Nucleated RBC % (auto) 0.0 PT 11.4 INR 1.0 APTT 29.5 Anion Gap 21 H Estim Creat Clear Calc 22.0 Estimated GFR 31 Random Glucose 103 Lactic Acid Calcium 9.4 Total Bilirubin 1.9 H Direct Bilirubin AST 336 H ALT 267 H Alkaline Phosphatase 449 H D Troponin I High Sens Total Protein 7.1 Albumin 4.0 Lipase 4906 H Urine Color Urine Appearance Urine pH Ur Specific [place] Urine Protein Urine Glucose (UA) Urine Ketones Urine Blood Urine Nitrite Ur Leukocyte Esterase Urine RBC Urine WBC Ur Squamous Epith Cells Urine Bacteria COVID-19 (SARAH) COVID-19 Clin Com Influenza Type A (LISA) Influenza Type B (LISA) Influenza A & B Note 01/02/22 01/02/22 01/02/22 17:35 17:35 18:04 MCV MCH MCHC RDW Plt Count MPV Immature Gran % (Auto) Neut % (Auto) Lymph % (Auto) [place] % (Auto) Eos % (Auto) Baso % (Auto) Lymph # (Auto) [place] # (Auto) Eos # (Auto) Baso # (Auto) Abs Immat Gran (auto) Absolute Neuts (auto) Absolute Nucleated RBC Nucleated RBC % (auto) PT INR APTT Anion Gap Estim Creat Clear Calc Estimated GFR Random Glucose Lactic Acid 2.0 Calcium Total Bilirubin Direct Bilirubin AST ALT Alkaline Phosphatase Troponin I High Sens 12.1 Total Protein Albumin Lipase Urine Color Urine Appearance Urine pH Ur Specific [place] Urine Protein Urine Glucose (UA) Urine Ketones Urine Blood Urine Nitrite Ur Leukocyte Esterase Urine RBC Urine WBC Ur Squamous Epith Cells Urine Bacteria COVID-19 (SARAH) COVID-19 Clin Com Influenza Type A (LISA) Negative Influenza Type B (LISA) Negative Influenza A & B Note See Note 01/02/22 01/02/22 01/02/22 18:04 19:47 20:02 MCV MCH MCHC RDW Plt Count MPV Immature Gran % (Auto) Neut % (Auto) Lymph % (Auto) [place] % (Auto) Eos % (Auto) Baso % (Auto) Lymph # (Auto) [place] # (Auto) Eos # (Auto) Baso # (Auto) Abs Immat Gran (auto) Absolute Neuts (auto) Absolute Nucleated RBC Nucleated RBC % (auto) PT INR APTT Anion Gap Estim Creat Clear Calc Estimated GFR Random Glucose Lactic Acid Calcium Total Bilirubin Direct Bilirubin 1.5 H AST ALT Alkaline Phosphatase Troponin I High Sens Total Protein Albumin Lipase Urine Color YELLOW Urine Appearance HAZY Urine pH 5.0 Ur Specific [place] 1.020 Urine Protein 1+ H Urine Glucose (UA) NEG Urine Ketones 5 Urine Blood NEG Urine Nitrite NEG Ur Leukocyte Esterase 2+ H Urine RBC 0-2 Urine WBC 76-150 H Ur Squamous Epith Cells 2+ Urine Bacteria 4+ COVID-19 (SARAH) Negative COVID-19 Clin Com See Note Influenza Type A (LISA) Influenza Type B (LISA) Influenza A & B Note 01/02/22 01/02/22 01/03/22 20:03 20:03 06:14 MCV 90.8 MCH 30.2 MCHC 33.2 RDW 12.7 Plt Count 202 MPV 10.2 Immature Gran % (Auto) 0.1 Neut % (Auto) 81.2 H Lymph % (Auto) 10.6 L [place] % (Auto) 7.3 Eos % (Auto) 0.7 Baso % (Auto) 0.1 Lymph # (Auto) 0.8 L [place] # (Auto) 0.5 Eos # (Auto) 0.1 Baso # (Auto) 0.0 Abs Immat Gran (auto) 0.01 Absolute Neuts (auto) 5.8 Absolute Nucleated RBC 0.000 Nucleated RBC % (auto) 0.0 PT INR APTT Anion Gap Estim Creat Clear Calc Estimated GFR Random Glucose Lactic Acid Calcium Total Bilirubin Direct Bilirubin AST ALT Alkaline Phosphatase Troponin I High Sens Total Protein Albumin Lipase Urine Color Urine Appearance Urine pH Ur Specific [place] Urine Protein Urine Glucose (UA) Urine Ketones Urine Blood Urine Nitrite Ur Leukocyte Esterase Urine RBC Urine WBC Ur Squamous Epith Cells Urine Bacteria COVID-19 (SARAH) Cancelled COVID-19 Clin Com Cancelled Influenza Type A (LISA) Cancelled Influenza Type B (LISA) Cancelled Influenza A & B Note Cancelled 01/03/22 06:14 MCV MCH MCHC RDW Plt Count MPV Immature Gran % (Auto) Neut % (Auto) Lymph % (Auto) [place] % (Auto) Eos % (Auto) Baso % (Auto) Lymph # (Auto) [place] # (Auto) Eos # (Auto) Baso # (Auto) Abs Immat Gran (auto) Absolute Neuts (auto) Absolute Nucleated RBC Nucleated RBC % (auto) PT INR APTT Anion Gap 15 Estim Creat Clear Calc 26.2 Estimated GFR 36 Random Glucose 103 Lactic Acid Calcium 8.9 Total Bilirubin 2.9 H Direct Bilirubin 2.4 H AST 281 H ALT 322 H Alkaline Phosphatase 377 H Troponin I High Sens Total Protein 6.1 L Albumin 3.5 Lipase Urine Color Urine Appearance Urine pH Ur Specific [place] Urine Protein Urine Glucose (UA) Urine Ketones Urine Blood Urine Nitrite Ur Leukocyte Esterase Urine RBC Urine WBC Ur Squamous Epith Cells Urine Bacteria COVID-19 (SARAH) COVID-19 Clin Com Influenza Type A (LISA) Influenza Type B (LISA) Influenza A & B Note Assessment and Plan (1) Acute gallstone pancreatitis: Status: Acute Plan 86-year-old female past medical history hypertension hyperlipidemia presents to the hospital with complaints of epigastric pain found to have acute pancreatitis acute gallstone pancreatitis - patient presents with epigastric abdominal pain found to have significant elevation in lipase - As well as CT abdominal finding of cholelithiasis - patient will be treated with aggressive IV fluid,pain meds,IV antibiotics given the CT findings of dilated bile duct Gi recomended mrcp and general surgery recomended -may need ercp , cholecystectomy once better hypertension - stable - will resume her medications hyperlipidemia - stable - continue home meds DVT prophylaxis:? SCDs Quality Stroke Does the patient have a stroke diagnosis?: No VTE Prior VTE?: No VTE Risk Level:: Medical - moderate - high VTE Device Contraindication: N/A - Device Ordered VTE Drug Contraindication: Treatment Not Indicated
[2022-01-03 08:34] LABS: Lipase 788 U/L (8-78)
--- NOTE | 2022-01-03 10:04 | MHC.CM.PN ---
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 D/C PLAN: HOME W/NEW VNA AND RESUMP OF SUPER[employer]OR CELLARS, FAMILY FOR TRANSPORT
--- NOTE | 2022-01-03 11:52 | PM.CNGS ---
History of Present Illness Consult details Consult date: 01/03/22 Reason for consult: gallstones Requesting physician: Teodoro Grover Narrative: The pt is a 86 year old female who presented to the ER with abdo pain jaundice and work up shows enlarged CBD, stones in GB, elevated LFTs and pancreas enzymes and findings consistent with gallstone pancreatitits. Pt does say she has had episodes of postprandial pain on and off over many years and most of her family members have had heir gallbladder removed. She is admitted by med team, has GI consult for ERCP today and we will discuss getting her GB out at some point Review of Systems Constitutional: Constitutional: Reports as per [facility] Past Medical History Medical History Aortic stenosis Biliary colic Hyperlipidemia Hypertension Hypertension Family History Family History Father Heart disease Mother No problems noted. Brother Heart disease Surgical History Surgical History Hammertoe, bilateral Total knee replacement status Social History Social History Household Members: Spouse Housing: House Do you presently have visiting nurse or other home services: No Unable to assess alcohol history related to: Unknown Alcohol intake: current Alcohol intake frequency: holidays/special occasions only Alcohol type: hard liquor Patient Tobacco Use Status: Former Tobacco user Tobacco use type: Cigarette e-Cigarette/Vaping Use: Never Used Second Hand Smoke Exposure: No Use of substances other than those prescribed or required for medical reasons: No Currently Displaying Signs/Symptoms of Drug Intoxication Withdrawal: No Have you been hit, kicked, punched, or otherwise hurt by someone within the past year? If so, by whom?: No Do you feel safe in your current relationship?: Yes Is there a partner from a previous relationship who is making you feel unsafe now?: No Are you made to feel afraid or neglected: No Advance Directives: Yes Advance Directives on File: Yes Advance Directives Date on File: 02/17/21 Do you have thoughts of harming others: None Do you have a plan to hurt others: No Plan Recently lost weight without trying: Unsure Nutrition Risks: Poor intake 0-25% >4 days Patient : No : No Poor oral hygiene: No service: No Current occupational status: retired Cognitive needs: No Hearing needs: No Vision needs: No Meds Allergies Allergy/AdvReac Type Severity Reaction Status Date / Time No Known Drug Intolerances Allergy Unknown NOT Verified 11/08/21 14:48 APPLICABLE Active Medications: Current Medications Acetaminophen (Acetaminophen Supp 650 Mg Supp.Rect) 650 mg [place] Q6H PRN PRN Reason: Pain, Mild (Pain Scale 1-3) Atorvastatin Calcium (Atorvastatin Calcium 10 Mg Tablet) 10 mg PO BEDTIME [facility] Carvedilol (Carvedilol 6.25 Mg Tablet) 6.25 mg PO BID [facility]; Protocol Last Admin: 01/03/22 07:39 Dose: 6.25 mg Documented by: Hydrochlorothiazide (Hydrochlorothiazide 12.5 Mg Tablet) 12.5 mg PO DAILY [facility] Last Admin: 01/03/22 07:37 Dose: 12.5 mg Documented by: Lactated Ringer's (Lr) 1,000 mls @ 200 mls/hr IVCONT .Q5H [facility] Last Admin: 01/03/22 09:42 Dose: 200 mls/hr Documented by: Metronidazole (Flagyl) 500 mg in 100 mls @ 100 mls/hr IV Q8H [facility] Last Infusion: 01/03/22 05:22 Dose: Infused Documented by: Ceftriaxone Sodium 1 gm/ (Sodium Chloride) 50 mls @ 100 mls/hr IV Q24H [facility] Last Infusion: 01/02/22 22:52 Dose: Infused Documented by: Lorazepam (Lorazepam 0.5 Mg Tablet) 0.5 mg PO DAILY PRN PRN Reason: Anxiety Morphine Sulfate (Morphine Sulfate 4 Mg/Ml Cartridge) 4 mg IVPUSH Q4H PRN; Protocol PRN Reason: Pain, Severe (Pain Scale 7-10) Last Admin: 01/03/22 06:18 Dose: 4 mg Documented by: Nifedipine (Nifedipine Er 90 Mg Tab.Er.24) 90 mg PO DAILY [facility]; Protocol Last Admin: 01/03/22 07:37 Dose: 90 mg Documented by: Omeprazole (Omeprazole 20 Mg Capsule.Dr) 20 mg PO DAILY@0630 [facility] Last Admin: 01/03/22 06:24 Dose: Not Given Documented by: Ondansetron HCl (Ondansetron Hcl 4 Mg/2 Ml Vial) 4 mg IVPUSH Q8H PRN PRN Reason: Nausea and Vomiting Pharmacy Consult (Consult Rx Perform Med Rec) 1 each MISCELLANE ONCE PRN PRN Reason: Consult order Psyllium Hydrophilic Mucilloid (Psyllium Seed 3.4 Gm Powd.Pack) 3.4 gm PO BEDTIME PRN PRN Reason: Constipation Sodium Chloride (0.9 % Sodium Chloride Flush 3 Ml Syringe) [facility] Last Admin: 01/03/22 07:37 Dose: 3 ml Documented by: Home Medications Medication Instructions Recorded Confirmed Last Taken Type ergocalciferol (vitamin D2) 1,250 1,250 mcg PO Q2W 09/30/20 01/02/22 02/12/21 History mcg (50,000 unit) capsule aspirin 81 mg chewable tablet 81 mg PO BEDTIME 02/16/21 01/02/22 01/01/22 History lorazepam 0.5 mg tablet 0.5 mg PO DAILY PRN 02/16/21 01/02/22 Unknown History nifedipine 90 mg tablet,extended 90 mg PO DAILY 02/16/21 01/02/22 01/02/22 History release 24 hr pantoprazole 40 mg tablet,delayed 40 mg PO DAILY@0630 02/16/21 01/02/22 01/02/22 History release psyllium husk 0.52 gram capsule 1.04 g PO BEDTIME PRN 02/16/21 01/02/22 Unknown History (Metamucil) chlorthalidone 25 mg tablet 12.5 mg PO DAILY 10/26/21 01/02/22 01/02/22 History carvedilol 6.25 mg tablet 1 tab PO BID 01/02/22 01/02/22 Unknown History Physical Exam Vital Signs: Vital Signs: Last Vital Signs Temp 98.4 F 01/03/22 11:13 Pulse 61 01/03/22 11:13 Resp 16 01/03/22 11:13 BP 136/56 L 01/03/22 11:13 Pulse Ox 94 01/03/22 11:13 BMI result Body Mass Index 28.9 Const: General: cooperative, healthy appearing, comfortable and no acute distress Orientation/consciousness: oriented to person, oriented to place and oriented to time HEENT: Other: eyes jaundiced Resp: Effort & Inspection: normal respiratory effort and able to speak in complete sentences Auscultation: clear to auscultation bilaterally Cardio: Rate: regular rate Rhythm: regular rhythm GI: Other: soft nontender nondistended active bowel sounds Inspection: Yes normal to inspection : General: Yes no CVA tenderness Back/Spine/Pelvis: Back: no CVA tenderness Skin: General skin exam: jaundice Neuro: General: oriented to person, oriented to place and oriented to time Extrem: General: Yes normal to inspection and Yes full ROM Psych: Appearance: grossly normal Results Labs Result diagrams: 01/03/22 06:14 01/03/22 06:14 Labs: Abnormal lab results 01/02/22 01/02/22 01/02/22 Range/Units 17:35 17:35 19:47 RBC 3.54 L (4.20-5.50) X10*6/uL Hgb 10.9 L (12.0-16.0) g/dl Hct 31.9 L (37.0-47.0) % Neut % (Auto) 81.3 H (45-73) % Lymph % (Auto) 9.0 L (20-40) % Lymph # (Auto) 0.7 L (1.2-4.9) X10*3/uL Carbon Dioxide 18 L (22-29) mmol/L Anion Gap 21 H (12-20) BUN 45 H (9-16) mg/dL Creatinine 1.59 H (0.5-1.4) mg/dL Total Bilirubin 1.9 H (0.0-1.0) mg/dL Direct Bilirubin (0.0-0.5) mg/dL AST 336 H (5-31) U/L ALT 267 H (0-31) U/L Alkaline Phosphatase 449 H D (39-117) U/L Total Protein (6.5-8.0) g/dL Lipase 4906 H (8-78) U/L Urine Protein 1+ H (NEG-TRACE) MG/DL Ur Leukocyte Esterase 2+ H (NEG) Urine WBC 76-150 H (0-4) /HPF 01/02/22 01/03/22 01/03/22 Range/Units 20:02 06:14 06:14 RBC 3.38 L (4.20-5.50) X10*6/uL Hgb 10.2 L (12.0-16.0) g/dl Hct 30.7 L (37.0-47.0) % Neut % (Auto) 81.2 H (45-73) % Lymph % (Auto) 10.6 L (20-40) % Lymph # (Auto) 0.8 L (1.2-4.9) X10*3/uL Carbon Dioxide (22-29) mmol/L Anion Gap (12-20) BUN 36 H (9-16) mg/dL Creatinine (0.5-1.4) mg/dL Total Bilirubin 2.9 H (0.0-1.0) mg/dL Direct Bilirubin 1.5 H 2.4 H (0.0-0.5) mg/dL AST 281 H (5-31) U/L ALT 322 H (0-31) U/L Alkaline Phosphatase 377 H (39-117) U/L Total Protein 6.1 L (6.5-8.0) g/dL Lipase 788 H (8-78) U/L Urine Protein (NEG-TRACE) MG/DL Ur Leukocyte Esterase (NEG) Urine WBC (0-4) /HPF Short CBC 01/02/22 01/03/22 Range/Units 17:35 06:14 WBC 7.9 7.2 (4.8-10.8) X10*3/uL Hgb 10.9 L 10.2 L (12.0-16.0) g/dl Hct 31.9 L 30.7 L (37.0-47.0) % Plt Count 210 202 (160-400) X10*3/uL BMP 01/02/22 01/03/22 17:35 06:14 Sodium 141 142 Potassium 3.7 3.8 Chloride 106 107 Carbon Dioxide 18 L 24 BUN 45 H 36 H Creatinine 1.59 H 1.40 Calcium 9.4 8.9 Liver Function 01/02/22 01/02/22 01/03/22 Range/Units 17:35 20:02 06:14 Total Bilirubin 1.9 H 2.9 H (0.0-1.0) mg/dL Direct Bilirubin 1.5 H 2.4 H (0.0-0.5) mg/dL AST 336 H 281 H (5-31) U/L ALT 267 H 322 H (0-31) U/L Alkaline Phosphatase 449 H D 377 H (39-117) U/L Albumin 4.0 3.5 (3.5-5.0) g/dL Urine 01/02/22 Range/Units 19:47 Urine Color YELLOW Urine Appearance HAZY Urine pH 5.0 (5.0-8.0) Ur Specific [place] 1.020 (1.005-1.025) Urine Protein 1+ H (NEG-TRACE) MG/DL Urine Glucose (UA) NEG (NEG) MG/DL All other labs normal. Imaging Abdomen CT scan report/results: report reviewed and image reviewed Assessment and Plan (1) Acute gallstone pancreatitis: Status: Acute Plan 86 year old female pleasant with gallstone pancreatitis - overnight stable - ct showing stones in distal CBD so GI will do ERCP. pt overall in good health so recommend lap virgen at some point in the future. needs to have ERCP, do well with that, have pancreatitis resolve and then consider lap virgen. if all goes well can do during this same admission or may consider doing elective outpatient in the near future. Would like to get med clearance re cardiovascular before the lap virgen. We will follow along. Procedures Date of Service Date of Service: 01/03/22
[2022-01-03] MEDS: Atorvastatin Calcium 10 MG TABLET PO (20:15)
[2022-01-03] MEDS: cefTRIAXone sodium 1 GM in 0.9 % Sodium Chloride 50 ML IV (20:15)
[2022-01-03] MEDS: ondansetron HCL 4 MG/2 ML VIAL IVPUSH (23:33)
[2022-01-04] VITALS (12 sets, daily range): BP systolic 100–176; BP diastolic 60–86; PULSE 62–77; RESP 10–20; TEMP 35.9–36.8; O2SAT 92–97
[2022-01-04] MEDS: metroNIDAZOLE/NS 500 MG/100 ML PIGGYBACK 100 MG IV ×2 (06:21→20:55)
[2022-01-04] MEDS: Lactated Ringers 1,000 ML 200 ML IVCONT ×3 (06:22→20:50)
[2022-01-04 06:25] LABS: Hematocrit 30.5 % (37.0-47.0); Hemoglobin 10.1 g/dl (12.0-16.0); Mean Corpuscular HGB Conc 33.1 g/dl (31.0-35.0); Mean Corpuscular Hemoglobin 30.2 pg (27.0-33.0); Mean Corpuscular Volume 91.3 fL (80.0-98.0); Mean Platelet Volume 10.9 fL (9.4-12.3); Platelet Count 180 X10*3/uL (160-400); Red Blood Count 3.34 X10*6/uL (4.20-5.50); Red Cell Distribution Width 12.8 % (11.0-16.0); White Blood Count 4.8 X10*3/uL (4.8-10.8)
[2022-01-04 06:47] LABS: Anion Gap 14 (12-20); Blood Urea Nitrogen 23 mg/dL (9-16); Calcium 8.9 mg/dL (8.4-10.2); Carbon Dioxide 24 mmol/L (22-29); Chloride 105 mmol/L (96-108); Creatinine Clr Calc Pharmacy 36.3; Estimated Glomerular Filt Rate 52; Glucose Random 95 mg/dL (60-115); Potassium 3.6 mmol/L (3.3-5.1); Sodium 139 mmol/L (135-145)
[2022-01-04 08:34] LABS: Alanine Aminotransferase 210 U/L (0-31); Albumin Level 3.1 g/dL (3.5-5.0); Alkaline Phosphatase 314 U/L (39-117); Aspartate Amino Transferase 101 U/L (5-31); Bilirubin Direct 1.1 mg/dL (0.0-0.5); Bilirubin Total 1.5 mg/dL (0.0-1.0); Total Protein 5.5 g/dL (6.5-8.0)
--- NOTE | 2022-01-04 08:43 | P.PNGS_ITS ---
Subjective Subjective Date of Service: 01/04/22 Interval history: Denies any abd pain currently. Denies nausea, fevers. Awaiting ERCP today. C/o right foot pain that began overnight. Physical Exam Vital Signs: Vital Signs: Last Vital Signs Temp 96.6 F L 01/04/22 07:10 Pulse 63 01/04/22 07:10 Resp 16 01/04/22 07:10 BP 146/65 H 01/04/22 07:10 Pulse Ox 93 01/04/22 07:10 BMI result Body Mass Index 28.9 Const: General: comfortable, no acute distress and alert Orientation/consciousness: patient oriented x3 Resp: Effort & Inspection: normal respiratory effort GI: Inspection: No distended Palpation (GI): Soft to palpation, Tenderness to palpation present (GI) in the RUQ, no guarding and not rigid Skin: General skin exam: no rashes or lesions noted and no jaundice Neuro: General: patient oriented x3 Objective Data Active Medications Acetaminophen (Acetaminophen Supp 650 Mg Supp.Rect) 650 mg [place] Q6H PRN PRN Reason: Pain, Mild (Pain Scale 1-3) Atorvastatin Calcium (Atorvastatin Calcium 10 Mg Tablet) 10 mg PO BEDTIME [facility] Last Admin: 01/03/22 20:15 Dose: 10 mg Documented by: MANFRED Carvedilol (Carvedilol 6.25 Mg Tablet) 6.25 mg PO BID [facility]; Protocol Last Admin: 01/03/22 20:15 Dose: 6.25 mg Documented by: MANFRED Hydrochlorothiazide (Hydrochlorothiazide 12.5 Mg Tablet) 12.5 mg PO DAILY [facility] Last Admin: 01/03/22 07:37 Dose: 12.5 mg Documented by: GERMAN Lactated Ringer's (Lr) 1,000 mls @ 200 mls/hr IVCONT .Q5H [facility] Last Admin: 01/04/22 06:22 Dose: 200 mls/hr Documented by: MANFRED Metronidazole (Flagyl) 500 mg in 100 mls @ 100 mls/hr IV Q8H [facility] Last Admin: 01/04/22 06:21 Dose: 100 mls/hr Documented by: MANFRED Ceftriaxone Sodium 1 gm/ (Sodium Chloride) 50 mls @ 100 mls/hr IV Q24H [facility] Last Infusion: 01/03/22 21:03 Dose: 0 mls/hr Documented by: MANFRED Lorazepam (Lorazepam 0.5 Mg Tablet) 0.5 mg PO DAILY PRN PRN Reason: Anxiety Morphine Sulfate (Morphine Sulfate 4 Mg/Ml Cartridge) 4 mg IVPUSH Q4H PRN; Protocol PRN Reason: Pain, Severe (Pain Scale 7-10) Last Admin: 01/03/22 06:18 Dose: 4 mg Documented by: MANFRED Nifedipine (Nifedipine Er 90 Mg Tab.Er.24) 90 mg PO DAILY [facility]; Protocol Last Admin: 01/03/22 07:37 Dose: 90 mg Documented by: GERMAN Omeprazole (Omeprazole 20 Mg Capsule.Dr) 20 mg PO DAILY@0630 [facility] Last Admin: 01/04/22 06:21 Dose: Not Given Documented by: MANFRED Non-Admin Reason: NPO Ondansetron HCl (Ondansetron Hcl 4 Mg/2 Ml Vial) 4 mg IVPUSH Q8H PRN PRN Reason: Nausea and Vomiting Last Admin: 01/03/22 23:33 Dose: 4 mg Documented by: MANFRED Pharmacy Consult (Consult Rx Perform Med Rec) 1 each MISCELLANE ONCE PRN PRN Reason: Consult order Psyllium Hydrophilic Mucilloid (Psyllium Seed 3.4 Gm Powd.Pack) 3.4 gm PO BEDTIME PRN PRN Reason: Constipation Sodium Chloride (0.9 % Sodium Chloride Flush 3 Ml Syringe) 3 ml IVFLUSH QSHIFT [facility] Last Admin: 01/03/22 20:15 Dose: 3 ml Documented by: MANFRED Labs CBC & Chem 7: 01/04/22 06:06 01/04/22 06:06 Labs: Laboratory Results - last 24 hr 01/04/22 01/04/22 06:06 06:06 MCV 91.3 MCH 30.2 MCHC 33.1 RDW 12.8 Plt Count 180 MPV 10.9 Absolute Nucleated RBC 0.000 Nucleated RBC % (auto) 0.0 Anion Gap 14 Estim Creat Clear Calc 36.3 Estimated GFR 52 Random Glucose 95 Calcium 8.9 Total Bilirubin 1.5 H Direct Bilirubin 1.1 H AST 101 H ALT 210 H Alkaline Phosphatase 314 H Total Protein 5.5 L Albumin 3.1 L Microbiology Microbiology Results: Microbiology 01/02/22 19:56 Urine Culture - Final Urine clean catch - Urine hardwick top Escherichia coli 01/02/22 20:02 Blood Culture - Preliminary Blood - Venous No growth after 24 hours. 01/02/22 20:03 Blood Culture - Preliminary Blood - Venous No growth after 24 hours. Procedures Date of Service Date of Service: 01/04/22 Progress Note: A&P Assessment and plan (1) Acute gallstone pancreatitis: Status: Acute Plan 86 year old female admitted with gallstone pancreatitis. MRCP yesterday showed filling defect at level of pancreatic duct. Awaiting ERCP today. Again discussed eventual CCY following ERCP to prevent recurrence, possibly during this admission once pancreatitis resolves/bilirubin improves or on an out patient basis. This can be discussed further following the ERCP. Will continue to follow. Fall Risk Details Current Medications: Current Medications Acetaminophen (Acetaminophen Supp 650 Mg Supp.Rect) 650 mg [place] Q6H PRN PRN Reason: Pain, Mild (Pain Scale 1-3) Atorvastatin Calcium (Atorvastatin Calcium 10 Mg Tablet) 10 mg PO BEDTIME [facility] Last Admin: 01/03/22 20:15 Dose: 10 mg Documented by: Carvedilol (Carvedilol 6.25 Mg Tablet) 6.25 mg PO BID [facility]; Protocol Last Admin: 01/03/22 20:15 Dose: 6.25 mg Documented by: Hydrochlorothiazide (Hydrochlorothiazide 12.5 Mg Tablet) 12.5 mg PO DAILY [facility] Last Admin: 01/03/22 07:37 Dose: 12.5 mg Documented by: Lactated Ringer's (Lr) 1,000 mls @ 200 mls/hr IVCONT .Q5H [facility] Last Admin: 01/04/22 06:22 Dose: 200 mls/hr Documented by: Metronidazole (Flagyl) 500 mg in 100 mls @ 100 mls/hr IV Q8H [facility] Last Admin: 01/04/22 06:21 Dose: 100 mls/hr Documented by: Ceftriaxone Sodium 1 gm/ (Sodium Chloride) 50 mls @ 100 mls/hr IV Q24H [facility] Last Infusion: 01/03/22 21:03 Dose: Infused Documented by: Lorazepam (Lorazepam 0.5 Mg Tablet) 0.5 mg PO DAILY PRN PRN Reason: Anxiety Morphine Sulfate (Morphine Sulfate 4 Mg/Ml Cartridge) 4 mg IVPUSH Q4H PRN; Protocol PRN Reason: Pain, Severe (Pain Scale 7-10) Last Admin: 01/03/22 06:18 Dose: 4 mg Documented by: Nifedipine (Nifedipine Er 90 Mg Tab.Er.24) 90 mg PO DAILY [facility]; Protocol Last Admin: 01/03/22 07:37 Dose: 90 mg Documented by: Omeprazole (Omeprazole 20 Mg Capsule.Dr) 20 mg PO DAILY@0630 [facility] Last Admin: 01/04/22 06:21 Dose: Not Given Documented by: Ondansetron HCl (Ondansetron Hcl 4 Mg/2 Ml Vial) 4 mg IVPUSH Q8H PRN PRN Reason: Nausea and Vomiting Last Admin: 01/03/22 23:33 Dose: 4 mg Documented by: Pharmacy Consult (Consult Rx Perform Med Rec) 1 each MISCELLANE ONCE PRN PRN Reason: Consult order Psyllium Hydrophilic Mucilloid (Psyllium Seed 3.4 Gm Powd.Pack) 3.4 gm PO BEDTIME PRN PRN Reason: Constipation Sodium Chloride (0.9 % Sodium Chloride Flush 3 Ml Syringe) 3 ml IVFLUSH QSHIFT [facility] Last Admin: 01/03/22 20:15 Dose: 3 ml Documented by: Time Spent With Patient Time: Total time spent is greater than 50% in coordination of care (as documented) at patient's floor/unit and/or counseling patient: Quality Stroke Does the patient have a stroke diagnosis?: No VTE Prior VTE?: No VTE Risk Level:: Medical - moderate - high VTE Device Contraindication: N/A - Device Ordered VTE Drug Contraindication: Treatment Not Indicated
--- NOTE | 2022-01-04 08:44 | HO.PM.IMPN ---
Subjective Subjective Date of Service: 01/04/22 Interval History: gallstone pancreatitis Review of Systems Still has similar abdominal pain as yesterday. Denies any chest pain or shortness of breath or fever or chills or cough or phlegm. Physical Exam Vital Signs: Vital Signs: Last Vital Signs Temp 96.6 F L 01/04/22 07:10 Pulse 63 01/04/22 07:10 Resp 16 01/04/22 07:10 BP 146/65 H 01/04/22 07:10 Pulse Ox 93 01/04/22 07:10 BMI result Body Mass Index 28.9 Appearance: Alert.? Oriented X3.? not in distress.? cvs: rrr, [id number] , no murmur res: clear to auscultation ,no rhonchii or wheezing abd: no rebound or guarding ,ruq pain, bs present. ext pulses present , no cyanosis neuro: axo3 , nonfocal. ? Objective Data Active Medications Acetaminophen (Acetaminophen Supp 650 Mg Supp.Rect) 650 mg [place] Q6H PRN PRN Reason: Pain, Mild (Pain Scale 1-3) Atorvastatin Calcium (Atorvastatin Calcium 10 Mg Tablet) 10 mg PO BEDTIME [facility] Last Admin: 01/03/22 20:15 Dose: 10 mg Documented by: MANFRED Carvedilol (Carvedilol 6.25 Mg Tablet) 6.25 mg PO BID [facility]; Protocol Last Admin: 01/03/22 20:15 Dose: 6.25 mg Documented by: MANFRED Hydrochlorothiazide (Hydrochlorothiazide 12.5 Mg Tablet) 12.5 mg PO DAILY [facility] Last Admin: 01/03/22 07:37 Dose: 12.5 mg Documented by: GERMAN Lactated Ringer's (Lr) 1,000 mls @ 200 mls/hr IVCONT .Q5H [facility] Last Admin: 01/04/22 06:22 Dose: 200 mls/hr Documented by: MANFRED Metronidazole (Flagyl) 500 mg in 100 mls @ 100 mls/hr IV Q8H [facility] Last Admin: 01/04/22 06:21 Dose: 100 mls/hr Documented by: MANFRED Ceftriaxone Sodium 1 gm/ (Sodium Chloride) 50 mls @ 100 mls/hr IV Q24H [facility] Last Infusion: 01/03/22 21:03 Dose: 0 mls/hr Documented by: MANFRED Lorazepam (Lorazepam 0.5 Mg Tablet) 0.5 mg PO DAILY PRN PRN Reason: Anxiety Morphine Sulfate (Morphine Sulfate 4 Mg/Ml Cartridge) 4 mg IVPUSH Q4H PRN; Protocol PRN Reason: Pain, Severe (Pain Scale 7-10) Last Admin: 01/03/22 06:18 Dose: 4 mg Documented by: MANFRED Nifedipine (Nifedipine Er 90 Mg Tab.Er.24) 90 mg PO DAILY [facility]; Protocol Last Admin: 01/03/22 07:37 Dose: 90 mg Documented by: GERMAN Omeprazole (Omeprazole 20 Mg Capsule.Dr) 20 mg PO DAILY@0630 [facility] Last Admin: 01/04/22 06:21 Dose: Not Given Documented by: MANFRED Non-Admin Reason: NPO Ondansetron HCl (Ondansetron Hcl 4 Mg/2 Ml Vial) 4 mg IVPUSH Q8H PRN PRN Reason: Nausea and Vomiting Last Admin: 01/03/22 23:33 Dose: 4 mg Documented by: MANFRED Pharmacy Consult (Consult Rx Perform Med Rec) 1 each MISCELLANE ONCE PRN PRN Reason: Consult order Psyllium Hydrophilic Mucilloid (Psyllium Seed 3.4 Gm Powd.Pack) 3.4 gm PO BEDTIME PRN PRN Reason: Constipation Sodium Chloride (0.9 % Sodium Chloride Flush 3 Ml Syringe) 3 ml IVFLUSH QSHIFT [facility] Last Admin: 01/03/22 20:15 Dose: 3 ml Documented by: MANFRED Labs CBC & Chem 7: 01/04/22 06:06 01/04/22 06:06 Labs: Laboratory Results - last 24 hr 01/04/22 01/04/22 06:06 06:06 MCV 91.3 MCH 30.2 MCHC 33.1 RDW 12.8 Plt Count 180 MPV 10.9 Absolute Nucleated RBC 0.000 Nucleated RBC % (auto) 0.0 Anion Gap 14 Estim Creat Clear Calc 36.3 Estimated GFR 52 Random Glucose 95 Calcium 8.9 Total Bilirubin 1.5 H Direct Bilirubin 1.1 H AST 101 H ALT 210 H Alkaline Phosphatase 314 H Total Protein 5.5 L Albumin 3.1 L Microbiology Microbiology Results: Microbiology 01/02/22 19:56 Urine Culture - Final Urine clean catch - Urine hardwick top Escherichia coli 01/02/22 20:02 Blood Culture - Preliminary Blood - Venous No growth after 24 hours. 01/02/22 20:03 Blood Culture - Preliminary Blood - Venous No growth after 24 hours. Assessment and Plan (1) Acute gallstone pancreatitis: Status: Acute Plan 86-year-old female past medical history hypertension hyperlipidemia presents to the hospital with complaints of epigastric pain found to have acute pancreatitis ?acute gallstone pancreatitis - patient presents with epigastric abdominal pain found to have significant elevation in lipase - As well as CT abdominal finding of cholelithiasis - patient will be treated with aggressive IV fluid,pain meds,IV antibiotics given the CT findings of dilated bile duct Gi recomended mrcp and general surgery recomended -may need ercp , cholecystectomy once better ?hypertension - stable - will resume her medications ?hyperlipidemia - stable - continue home meds DVT prophylaxis:? SCDs need for inpatient: Acute gallstone pancreatitis, IV medications-pain medication, hydration, IV antibiotic Quality Stroke Does the patient have a stroke diagnosis?: No VTE Prior VTE?: No VTE Risk Level:: Medical - moderate - high VTE Device Contraindication: N/A - Device Ordered VTE Drug Contraindication: Treatment Not Indicated
--- NOTE | 2022-01-04 13:33 | P.CONAN_ITS ---
ON LICENSE OF [facility] Active Problems Active Problems: All Active Problems (Updated 01/02/22 @ 20:33 by Teodoro Grover MD) Acute gallstone pancreatitis (Acute) Bradycardia (Acute) Hypertension (Acute) Aortic stenosis (Acute) Hyperlipidemia (Acute) Past Medical History Medical History Aortic stenosis Biliary colic Hyperlipidemia Hypertension Hypertension Family History Family History Father Heart disease Mother No problems noted. Brother Heart disease Surgical History Surgical History Faizaertoe, bilateral Total knee replacement status History of Problems with Anesthesia: No Social History Social History Household Members: Spouse Housing: House Do you presently have visiting nurse or other home services: No Unable to assess alcohol history related to: Unknown Alcohol intake: current Alcohol intake frequency: holidays/special occasions only Alcohol type: hard liquor Patient Tobacco Use Status: Former Tobacco user Quit Date: 1981 Tobacco use type: Cigarette Years Smoked: 25 Smoked in Last 30 Days: No e-Cigarette/Vaping Use: Never Used Second Hand Smoke Exposure: No Use of substances other than those prescribed or required for medical reasons: No Currently Displaying Signs/Symptoms of Drug Intoxication Withdrawal: No Have you been hit, kicked, punched, or otherwise hurt by someone within the past year? If so, by whom?: No Do you feel safe in your current relationship?: Yes Is there a partner from a previous relationship who is making you feel unsafe now?: No Are you made to feel afraid or neglected: No Are you DNR?: Yes Advance Directives: Yes Advance Directives on File: Yes Advance Directives Date on File: 02/17/21 Do you have thoughts of harming others: None Do you have a plan to hurt others: No Plan Recently lost weight without trying: Unsure Nutrition Risks: Poor intake 0-25% >4 days Patient : No : No Poor oral hygiene: No service: No Current occupational status: retired Cognitive needs: No Hearing needs: No Vision needs: No Meds Allergies Allergy/AdvReac Type Severity Reaction Status Date / Time No Known Drug Intolerances Allergy Unknown NOT Verified 01/04/22 13:10 APPLICABLE Active Medications: Current Medications Acetaminophen (Acetaminophen Supp 650 Mg Supp.Rect) 650 mg [place] Q6H PRN PRN Reason: Pain, Mild (Pain Scale 1-3) Atorvastatin Calcium (Atorvastatin Calcium 10 Mg Tablet) 10 mg PO BEDTIME [facility] Last Admin: 01/03/22 20:15 Dose: 10 mg Documented by: Carvedilol (Carvedilol 6.25 Mg Tablet) 6.25 mg PO BID [facility]; Protocol Last Admin: 01/04/22 09:27 Dose: Not Given Documented by: Hydrochlorothiazide (Hydrochlorothiazide 12.5 Mg Tablet) 12.5 mg PO DAILY [facility] Last Admin: 01/04/22 09:27 Dose: Not Given Documented by: Lactated Ringer's (Lr) 1,000 mls @ 200 mls/hr IVCONT .Q5H [facility] Last Admin: 01/04/22 10:52 Dose: 200 mls/hr Documented by: Metronidazole (Flagyl) 500 mg in 100 mls @ 100 mls/hr IV Q8H [facility] Last Infusion: 01/04/22 09:00 Dose: Infused Documented by: Ceftriaxone Sodium 1 gm/ (Sodium Chloride) 50 mls @ 100 mls/hr IV Q24H [facility] Last Infusion: 01/03/22 21:03 Dose: Infused Documented by: Lorazepam (Lorazepam 0.5 Mg Tablet) 0.5 mg PO DAILY PRN PRN Reason: Anxiety Morphine Sulfate (Morphine Sulfate 4 Mg/Ml Cartridge) 4 mg IVPUSH Q4H PRN; Protocol PRN Reason: Pain, Severe (Pain Scale 7-10) Last Admin: 01/03/22 06:18 Dose: 4 mg Documented by: Nifedipine (Nifedipine Er 90 Mg Tab.Er.24) 90 mg PO DAILY [facility]; Protocol Last Admin: 01/04/22 09:27 Dose: Not Given Documented by: Omeprazole (Omeprazole 20 Mg Capsule.Dr) 20 mg PO DAILY@0630 [facility] Last Admin: 01/04/22 06:21 Dose: Not Given Documented by: Ondansetron HCl (Ondansetron Hcl 4 Mg/2 Ml Vial) 4 mg IVPUSH Q8H PRN PRN Reason: Nausea and Vomiting Last Admin: 01/03/22 23:33 Dose: 4 mg Documented by: Pharmacy Consult (Consult Rx Perform Med Rec) 1 each MISCELLANE ONCE PRN PRN Reason: Consult order Psyllium Hydrophilic Mucilloid (Psyllium Seed 3.4 Gm Powd.Pack) 3.4 gm PO BEDTIME PRN PRN Reason: Constipation Sodium Chloride (0.9 % Sodium Chloride Flush 3 Ml Syringe) 3 ml IVFLUSH QSHIFT [facility] Last Admin: 01/04/22 09:13 Dose: Not Given Documented by: Home Medications Medication Instructions Recorded Confirmed Last Taken Type ergocalciferol (vitamin D2) 1,250 1,250 mcg PO Q2W 09/30/20 01/02/22 02/12/21 History mcg (50,000 unit) capsule aspirin 81 mg chewable tablet 81 mg PO BEDTIME 02/16/21 01/02/22 01/01/22 History lorazepam 0.5 mg tablet 0.5 mg PO DAILY PRN 02/16/21 01/02/22 Unknown History nifedipine 90 mg tablet,extended 90 mg PO DAILY 02/16/21 01/02/22 01/02/22 History release 24 hr pantoprazole 40 mg tablet,delayed 40 mg PO DAILY@0630 02/16/21 01/02/22 01/02/22 History release psyllium husk 0.52 gram capsule 1.04 g PO BEDTIME PRN 02/16/21 01/02/22 Unknown History (Metamucil) chlorthalidone 25 mg tablet 12.5 mg PO DAILY 10/26/21 01/02/22 01/02/22 History carvedilol 6.25 mg tablet 1 tab PO BID 01/02/22 01/02/22 Unknown History Exam Exam Date and Time: January 04, 2022 1333 Height,Weight and Vital Signs: Height 5 ft 1 in Weight 69.5 kg Last Vital Signs Temp 97.8 F 01/04/22 11:09 Pulse 68 01/04/22 11:09 Resp 19 01/04/22 11:09 BP 154/62 H 01/04/22 11:09 Pulse Ox 92 01/04/22 11:09 Pertinent Lab Results Pertinent Lab Results: Laboratory Tests 01/02/22 01/02/22 01/02/22 17:35 17:35 17:35 WBC 7.9 RBC 3.54 L Hgb 10.9 L Hct 31.9 L MCV 90.1 MCH 30.8 MCHC 34.2 RDW 12.3 Plt Count 210 MPV 9.7 Immature Gran % (Auto) 0.3 Neut % (Auto) 81.3 H Lymph % (Auto) 9.0 L [place] % (Auto) 8.9 Eos % (Auto) 0.4 Baso % (Auto) 0.1 Lymph # (Auto) 0.7 L [place] # (Auto) 0.7 Eos # (Auto) 0.0 Baso # (Auto) 0.0 Abs Immat Gran (auto) 0.02 Absolute Neuts (auto) 6.4 Absolute Nucleated RBC 0.000 Nucleated RBC % (auto) 0.0 PT 11.4 INR 1.0 APTT 29.5 Sodium 141 Potassium 3.7 Chloride 106 Carbon Dioxide 18 L Anion Gap 21 H BUN 45 H Creatinine 1.59 H Estim Creat Clear Calc 22.0 Estimated GFR 31 Random Glucose 103 Lactic Acid Calcium 9.4 Total Bilirubin 1.9 H Direct Bilirubin AST 336 H ALT 267 H Alkaline Phosphatase 449 H D Troponin I High Sens Total Protein 7.1 Albumin 4.0 Lipase 4906 H Urine Color Urine Appearance Urine pH Ur Specific [place] Urine Protein Urine Glucose (UA) Urine Ketones Urine Blood Urine Nitrite Ur Leukocyte Esterase Urine RBC Urine WBC Ur Squamous Epith Cells Urine Bacteria COVID-19 (SARAH) COVID-19 Clin Com Influenza Type A (LISA) Influenza Type B (LISA) Influenza A & B Note 01/02/22 01/02/22 01/02/22 17:35 17:35 18:04 WBC RBC Hgb Hct MCV MCH MCHC RDW Plt Count MPV Immature Gran % (Auto) Neut % (Auto) Lymph % (Auto) [place] % (Auto) Eos % (Auto) Baso % (Auto) Lymph # (Auto) [place] # (Auto) Eos # (Auto) Baso # (Auto) Abs Immat Gran (auto) Absolute Neuts (auto) Absolute Nucleated RBC Nucleated RBC % (auto) PT INR APTT Sodium Potassium Chloride Carbon Dioxide Anion Gap BUN Creatinine Estim Creat Clear Calc Estimated GFR Random Glucose Lactic Acid 2.0 Calcium Total Bilirubin Direct Bilirubin AST ALT Alkaline Phosphatase Troponin I High Sens 12.1 Total Protein Albumin Lipase Urine Color Urine Appearance Urine pH Ur Specific [place] Urine Protein Urine Glucose (UA) Urine Ketones Urine Blood Urine Nitrite Ur Leukocyte Esterase Urine RBC Urine WBC Ur Squamous Epith Cells Urine Bacteria COVID-19 (SARAH) COVID-19 Clin Com Influenza Type A (LISA) Negative Influenza Type B (LISA) Negative Influenza A & B Note See Note 01/02/22 01/02/22 01/02/22 18:04 19:47 20:02 WBC RBC Hgb Hct MCV MCH MCHC RDW Plt Count MPV Immature Gran % (Auto) Neut % (Auto) Lymph % (Auto) [place] % (Auto) Eos % (Auto) Baso % (Auto) Lymph # (Auto) [place] # (Auto) Eos # (Auto) Baso # (Auto) Abs Immat Gran (auto) Absolute Neuts (auto) Absolute Nucleated RBC Nucleated RBC % (auto) PT INR APTT Sodium Potassium Chloride Carbon Dioxide Anion Gap BUN Creatinine Estim Creat Clear Calc Estimated GFR Random Glucose Lactic Acid Calcium Total Bilirubin Direct Bilirubin 1.5 H AST ALT Alkaline Phosphatase Troponin I High Sens Total Protein Albumin Lipase Urine Color YELLOW Urine Appearance HAZY Urine pH 5.0 Ur Specific [place] 1.020 Urine Protein 1+ H Urine Glucose (UA) NEG Urine Ketones 5 Urine Blood NEG Urine Nitrite NEG Ur Leukocyte Esterase 2+ H Urine RBC 0-2 Urine WBC 76-150 H Ur Squamous Epith Cells 2+ Urine Bacteria 4+ COVID-19 (SARAH) Negative COVID-19 Clin Com See Note Influenza Type A (LISA) Influenza Type B (LISA) Influenza A & B Note 01/02/22 01/02/22 01/03/22 20:03 20:03 06:14 WBC 7.2 RBC 3.38 L Hgb 10.2 L Hct 30.7 L MCV 90.8 MCH 30.2 MCHC 33.2 RDW 12.7 Plt Count 202 MPV 10.2 Immature Gran % (Auto) 0.1 Neut % (Auto) 81.2 H Lymph % (Auto) 10.6 L [place] % (Auto) 7.3 Eos % (Auto) 0.7 Baso % (Auto) 0.1 Lymph # (Auto) 0.8 L [place] # (Auto) 0.5 Eos # (Auto) 0.1 Baso # (Auto) 0.0 Abs Immat Gran (auto) 0.01 Absolute Neuts (auto) 5.8 Absolute Nucleated RBC 0.000 Nucleated RBC % (auto) 0.0 PT INR APTT Sodium Potassium Chloride Carbon Dioxide Anion Gap BUN Creatinine Estim Creat Clear Calc Estimated GFR Random Glucose Lactic Acid Calcium Total Bilirubin Direct Bilirubin AST ALT Alkaline Phosphatase Troponin I High Sens Total Protein Albumin Lipase Urine Color Urine Appearance Urine pH Ur Specific [place] Urine Protein Urine Glucose (UA) Urine Ketones Urine Blood Urine Nitrite Ur Leukocyte Esterase Urine RBC Urine WBC Ur Squamous Epith Cells Urine Bacteria COVID-19 (SARAH) Cancelled COVID-19 Clin Com Cancelled Influenza Type A (LISA) Cancelled Influenza Type B (LISA) Cancelled Influenza A & B Note Cancelled 01/03/22 01/04/22 01/04/22 06:14 06:06 06:06 WBC 4.8 RBC 3.34 L Hgb 10.1 L Hct 30.5 L MCV 91.3 MCH 30.2 MCHC 33.1 RDW 12.8 Plt Count 180 MPV 10.9 Immature Gran % (Auto) Neut % (Auto) Lymph % (Auto) [place] % (Auto) Eos % (Auto) Baso % (Auto) Lymph # (Auto) [place] # (Auto) Eos # (Auto) Baso # (Auto) Abs Immat Gran (auto) Absolute Neuts (auto) Absolute Nucleated RBC 0.000 Nucleated RBC % (auto) 0.0 PT INR APTT Sodium 142 139 Potassium 3.8 3.6 Chloride 107 105 Carbon Dioxide 24 24 Anion Gap 15 14 BUN 36 H 23 H Creatinine 1.40 1.01 Estim Creat Clear Calc 26.2 36.3 Estimated GFR 36 52 Random Glucose 103 95 Lactic Acid Calcium 8.9 8.9 Total Bilirubin 2.9 H 1.5 H Direct Bilirubin 2.4 H 1.1 H AST 281 H 101 H ALT 322 H 210 H Alkaline Phosphatase 377 H 314 H Troponin I High Sens Total Protein 6.1 L 5.5 L Albumin 3.5 3.1 L Lipase 788 H Urine Color Urine Appearance Urine pH Ur Specific [place] Urine Protein Urine Glucose (UA) Urine Ketones Urine Blood Urine Nitrite Ur Leukocyte Esterase Urine RBC Urine WBC Ur Squamous Epith Cells Urine Bacteria COVID-19 (SARAH) COVID-19 Clin Com Influenza Type A (LISA) Influenza Type B (LISA) Influenza A & B Note Airway Mallampati Class: II TM Dist: >3cm Neck ROM: Limited Denture: Upper Loose/Missing/Broken Teeth: Yes, Upper and Lower Heart: RRR Lungs: CTA Assessment and Plan Assessment Anesthesia Assessment: Anesthesia Plan Discussed Final Anesthetic Review History of Problems with Anesthesia: No NPO: Yes ASA Class: III Final Preanesthetic Review: Meds/Allgs Chart Reviewed, Consent Obtained/Reviewed and Anes Risks/Benef Reviewed Patient Risk: Intermediate Procedure Risk: Intermediate Anesthetic Plan Anesthetic Plan: GA Disposition: Standard PACU
--- NOTE | 2022-01-04 13:38 | PC.NURSE ---
Patient states she has a DNR/DNI code status. DNR/DNI order is active by floor hospitalist. No paperwork scanned into Electronic Medical Record or in chart from floor. HCP is Katelin Swift, daughter, phone [phone]. Dr. Carvajal made aware.
--- NOTE | 2022-01-04 13:48 | MHC.SHP ---
Pre-Procedural Eval Section A Date of Service: 01/04/22 The patient is an INPATIENT: Yes The History & Physical has been completed within 30 days and I have reviewed it.: Yes Section B Chief Complaint: Cholelithiasis,Acute gallstones pancreatitis Allergies: Allergies Allergy/AdvReac Type Severity Reaction Status Date / Time No Known Drug Intolerances Allergy Unknown NOT Verified 01/04/22 13:10 APPLICABLE Plan I have reviewed the history and physical and performed a pertinent physical examination on my patient. No changes have occurred unless specified.
--- NOTE | 2022-01-04 16:00 | P.BOP_ITS ---
Brief Operative Note Date of Service: 01/04/22 Pre-op diagnosis: CBD obstruction Post-op diagnosis: same Procedure: see op note Surgeon: Hipolito De La Vega MD Anesthesia: GETA Was an Filer Finish used for this Procedure?: No Estimated blood loss (mL): 0 Condition: stable Disposition: PACU
--- NOTE | 2022-01-04 16:00 | PM.OP ---
Brief Operative Note Date of Service: 01/04/22 Pre-op diagnosis: CBD obstruction Post-op diagnosis: same Procedure: see op note Surgeon: iHpolito De La Vega MD Anesthesia: GETA Was an Furniture Assembler And Installer used for this Procedure?: No Estimated blood loss (mL): 0 Condition: stable Disposition: PACU
--- NOTE | 2022-01-04 16:01 | P.OP_ITS ---
Operative Note Operative Note Date of Service: 01/04/22 Narrative: Description: Endoscopic retrograde cholangiopancreatography (ERCP) PROCEDURE: Endoscopic retrograde cholangiopancreatography with sphincterotomy and removal of CBD stones INDICATION FOR THE PROCEDURE: Patient with a history of abdominal pain, abn LFT and imaging with choledocholithiasis MEDICATIONS: General anesthesia, rectal indomethacin 100 mg, The risks of the procedure were made aware to the patient and consisted of medication reaction, bleeding, perforation, aspiration, and post ERCP pancreatitis. DESCRIPTION OF PROCEDURE: After informed consent and appropriate sedation, the duodenoscope was inserted into the oropharynx, down the esophagus, and into the stomach. The scope was then advanced through the pylorus to the ampulla. The ampulla had a bulbous appearance. A tome was advanced and passed easily into the CBD as confirmed by cholangiogram. No obvious filling defect was seen. A sphincterotomy was performed to 12 mm and a 12 mm extraction balloon was sweeped down the CBD multiple times. At least 4 dark green round and oblong shaped stones with some sludge and debris and purulent bile came out. A basket was then used but no further material was noted. an occlusion cholangiogram did not r eveal any obvious dfects either. The gallbladder did not fill, and the CBD was dilated to at least 13 mm. The CBD seemed to drain freely. There was some minor oozing which had ceased by the end of the procedure. The stomach was then decompressed and the endoscope was withdrawn. FINDINGS: 1. Choledocholithiasis 2. Probable cholecystitis, absent filling of gallbladder RECOMMENDATIONS: 1. NPO except ice chips for next 4-6 hrs then clears as tolerated, can advance diet tomorrow if feels well 2. follow up with surgery
[2022-01-04] MEDS: carvediloL 6.25 MG TABLET PO (20:39)
[2022-01-04] MEDS: Atorvastatin Calcium 10 MG TABLET PO (20:39)
[2022-01-04] MEDS: cefTRIAXone sodium 1 GM in 0.9 % Sodium Chloride 50 ML IV (22:36)
[2022-01-05] VITALS (7 sets, daily range): BP systolic 133–182; BP diastolic 60–76; PULSE 55–90; RESP 14–20; TEMP 36.4–37.1; O2SAT 90–96
[2022-01-05] MEDS: 0.9 % Sodium Chloride Flush 3 ML SYRINGE IVFLUSH ×4 (00:42→20:10)
[2022-01-05] MEDS: metroNIDAZOLE/NS 500 MG/100 ML PIGGYBACK 100 MG IV ×3 (05:54→20:10)
[2022-01-05] MEDS: Omeprazole 20 MG CAPSULE.DR PO (05:54)
[2022-01-05 06:40] LABS: Hematocrit 28.6 % (37.0-47.0); Hemoglobin 9.6 g/dl (12.0-16.0)
[2022-01-05 06:58] LABS: Anion Gap 12 (12-20); Blood Urea Nitrogen 14 mg/dL (9-16); Calcium 8.9 mg/dL (8.4-10.2); Carbon Dioxide 28 mmol/L (22-29); Chloride 102 mmol/L (96-108); Creatinine Clr Calc Pharmacy 50.2; Estimated Glomerular Filt Rate > 60; Glucose Random 96 mg/dL (60-115); Potassium 3.4 mmol/L (3.3-5.1); Sodium 139 mmol/L (135-145)
--- NOTE | 2022-01-05 08:15 | P.PNIM_ITS ---
Subjective Subjective Date of Service: 01/05/22 Interval History: gall stone pancreatitis , uncontroled htn Review of Systems Still has abdominal pain but somewhat better than yesterday Less nauseated Denies any fever or chills or cough Physical Exam Vital Signs: Vital Signs: Last Vital Signs Temp 98.3 F 01/05/22 08:00 Pulse 63 01/05/22 08:00 Resp 20 01/05/22 08:00 BP 182/72 H 01/05/22 08:00 Pulse Ox 96 01/05/22 04:00 BMI result Body Mass Index 28.9 Appearance: Alert.? Oriented X3.? not in distress.? cvs: rrr, [id number] , no murmur res: clear to auscultation ,no rhonchii or wheezing abd: no rebound or guarding ,ruq pain and epigastric discomfort improving, bs present. ext pulses present , no cyanosis neuro: axo3 , nonfocal. ? Objective Data Active Medications Acetaminophen (Acetaminophen Supp 650 Mg Supp.Rect) 650 mg [place] Q6H PRN PRN Reason: Pain, Mild (Pain Scale 1-3) Atorvastatin Calcium (Atorvastatin Calcium 10 Mg Tablet) 10 mg PO BEDTIME [facility] Last Admin: 01/04/22 20:39 Dose: 10 mg Documented by: BC Carvedilol (Carvedilol 6.25 Mg Tablet) 6.25 mg PO BID [facility]; Protocol Last Admin: 01/04/22 20:39 Dose: 6.25 mg Documented by: BC Hydrochlorothiazide (Hydrochlorothiazide 12.5 Mg Tablet) 12.5 mg PO DAILY [facility] Last Admin: 01/04/22 09:27 Dose: Not Given Documented by: [email or web address] Non-Admin Reason: NPO Metronidazole (Flagyl) 500 mg in 100 mls @ 100 mls/hr IV Q8H [facility] Last Infusion: 01/05/22 07:24 Dose: 0 mls/hr Documented by: VICKIE Ceftriaxone Sodium 1 gm/ (Sodium Chloride) 50 mls @ 100 mls/hr IV Q24H [facility] Last Infusion: 01/04/22 23:17 Dose: 100 mls/hr Documented by: BC Lorazepam (Lorazepam 0.5 Mg Tablet) 0.5 mg PO DAILY PRN PRN Reason: Anxiety Morphine Sulfate (Morphine Sulfate 4 Mg/Ml Cartridge) 4 mg IVPUSH Q4H PRN; Protocol PRN Reason: Pain, Severe (Pain Scale 7-10) Last Admin: 01/03/22 06:18 Dose: 4 mg Documented by: MANFRED Nifedipine (Nifedipine Er 60 Mg Tab.Er.24) 120 mg PO DAILY [facility]; Protocol Omeprazole (Omeprazole 20 Mg Capsule.Dr) 20 mg PO DAILY@0630 [facility] Last Admin: 01/05/22 05:54 Dose: 20 mg Documented by: BC Ondansetron HCl (Ondansetron Hcl 4 Mg/2 Ml Vial) 4 mg IVPUSH Q8H PRN PRN Reason: Nausea and Vomiting Last Admin: 01/03/22 23:33 Dose: 4 mg Documented by: MANFRED Ondansetron HCl (Ondansetron Hcl 4 Mg/2 Ml Vial) 4 mg IVPUSH ONCE PRN PRN Reason: Nausea and Vomiting Pharmacy Consult (Consult Rx Perform Med Rec) 1 each MISCELLANE ONCE PRN PRN Reason: Consult order Psyllium Hydrophilic Mucilloid (Psyllium Seed 3.4 Gm Powd.Pack) 3.4 gm PO BEDTIME PRN PRN Reason: Constipation Sodium Chloride (0.9 % Sodium Chloride Flush 3 Ml Syringe) [facility] Admin: 01/05/22 00:42 Dose: 3 ml Documented by: BC Labs CBC & Chem 7: 01/05/22 06:18 01/05/22 06:18 Labs: Laboratory Results - last 24 hr 01/04/22 01/05/22 06:06 06:18 Anion Gap 12 Estim Creat Clear Calc 50.2 Estimated GFR > 60 Random Glucose 96 Calcium 8.9 Total Bilirubin 1.5 H Direct Bilirubin 1.1 H AST 101 H ALT 210 H Alkaline Phosphatase 314 H Total Protein 5.5 L Albumin 3.1 L Microbiology Microbiology Results: Microbiology 01/02/22 20:02 Blood Culture - Preliminary Blood - Venous No growth after 48 hours. 01/02/22 20:03 Blood Culture - Preliminary Blood - Venous No growth after 48 hours. 01/02/22 19:56 Urine Culture - Final Urine clean catch - Urine hardwick top Escherichia coli Assessment and Plan (1) Acute gallstone pancreatitis: Status: Acute Plan 86-year-old female past medical history hypertension hyperlipidemia presents to the hospital with complaints of epigastric pain found to have acute pancreatitis 1.?acute gallstone pancreatitis - patient presents with epigastric abdominal pain found to have significant elevation in lipase - As well as CT abdominal finding of cholelithiasis - patient will be treated with aggressive IV fluid,pain meds,IV antibiotics given the CT findings of dilated bile duct Gi recomended mrcp and general surgery recomended -may need ercp , cholecystectomy over the weekend vs saturday 2.?hypertension - stable - will resume her medications 3.?hyperlipidemia - stable - continue home meds DVT prophylaxis:? SCDs need for inpatient: Acute gallstone pancreatitis, IV medications-pain medication, hydration, IV antibiotic, as well as need cholecystectomy Quality Stroke Does the patient have a stroke diagnosis?: No VTE Prior VTE?: No VTE Risk Level:: Medical - moderate - high VTE Device Contraindication: N/A - Device Ordered VTE Drug Contraindication: Treatment Not Indicated
--- NOTE | 2022-01-05 08:34 | PM.PNGS ---
Subjective Subjective Date of Service: 01/05/22 <Maite Givens PA-C - Last Filed: 01/05/22 09:48> 01/05/22 <Ru Berry MD - Last Filed: 01/05/22 16:16> Interval history: Had ERCP yesterday. Some soreness in upper abdomen this morning but denies pain. Denies nausea. Wants to eat. <Maite Givens PA-C - Last Filed: 01/05/22 09:48> Physical Exam Vital Signs: Vital Signs: Last Vital Signs Temp 98.3 F 01/05/22 08:00 Pulse 63 01/05/22 08:00 Resp 20 01/05/22 08:00 BP 182/72 H 01/05/22 08:00 Pulse Ox 96 01/05/22 04:00 BMI result Body Mass Index 28.9 <Maite Givens PA-C - Last Filed: 01/05/22 09:48> Const: General: comfortable, no acute distress and alert <Maite Givens PA-C - Last Filed: 01/05/22 09:48> Orientation/consciousness: patient oriented x3 <SIMON Morillo Last Filed: 01/05/22 09:48> Eyes: Sclerae: sclerae normal <SIMON Morillo Last Filed: 01/05/22 09:48> Resp: Effort & Inspection: normal respiratory effort <Maite Givens PA-C - Last Filed: 01/05/22 09:48> GI: Inspection: No distended <SIMON Morillo Last Filed: 01/05/22 09:48> Palpation (GI): Soft to palpation and Tenderness to palpation present (GI) in the RUQ (deep palpation) <SIMON Morillo Last Filed: 01/05/22 09:48> Percussion: Yes normal to percussion <SIMON Morillo Last Filed: 01/05/22 09:48> Skin: General skin exam: no rashes or lesions noted <SIMON Morillo Last Filed: 01/05/22 09:48> Neuro: General: patient oriented x3 <Maite Givens PA-C - Last Filed: 01/05/22 09:48> Extrem: Other: right foot- tender over lateral/dorsal aspect proximally, no edema or erythema <Maite Givens PA-C - Last Filed: 01/05/22 09:48> Objective Data Active Medications Acetaminophen (Acetaminophen Supp 650 Mg Supp.Rect) 650 mg [place] Q6H PRN PRN Reason: Pain, Mild (Pain Scale 1-3) Atorvastatin Calcium (Atorvastatin Calcium 10 Mg Tablet) 10 mg PO BEDTIME [facility] Last Admin: 01/04/22 20:39 Dose: 10 mg Documented by: BC Carvedilol (Carvedilol 6.25 Mg Tablet) 6.25 mg PO BID [facility]; Protocol Last Admin: 01/04/22 20:39 Dose: 6.25 mg Documented by: BC Hydrochlorothiazide (Hydrochlorothiazide 12.5 Mg Tablet) 12.5 mg PO DAILY [facility] Last Admin: 01/04/22 09:27 Dose: Not Given Documented by: JONATHAN Non-Admin Reason: NPO Metronidazole (Flagyl) 500 mg in 100 mls @ 100 mls/hr IV Q8H [facility] Last Infusion: 01/05/22 07:24 Dose: 0 mls/hr Documented by: VICKIE Ceftriaxone Sodium 1 gm/ (Sodium Chloride) 50 mls @ 100 mls/hr IV Q24H [facility] Last Infusion: 01/04/22 23:17 Dose: 100 mls/hr Documented by: BC Lorazepam (Lorazepam 0.5 Mg Tablet) 0.5 mg PO DAILY PRN PRN Reason: Anxiety Morphine Sulfate (Morphine Sulfate 4 Mg/Ml Cartridge) 4 mg IVPUSH Q4H PRN; Protocol PRN Reason: Pain, Severe (Pain Scale 7-10) Last Admin: 01/03/22 06:18 Dose: 4 mg Documented by: MANFRED Nifedipine (Nifedipine Er 60 Mg Tab.Er.24) 120 mg PO DAILY [facility]; Protocol Omeprazole (Omeprazole 20 Mg Capsule.Dr) 20 mg PO DAILY@0630 [facility] Last Admin: 01/05/22 05:54 Dose: 20 mg Documented by: BC Ondansetron HCl (Ondansetron Hcl 4 Mg/2 Ml Vial) 4 mg IVPUSH Q8H PRN PRN Reason: Nausea and Vomiting Last Admin: 01/03/22 23:33 Dose: 4 mg Documented by: MANFRED Ondansetron HCl (Ondansetron Hcl 4 Mg/2 Ml Vial) 4 mg IVPUSH ONCE PRN PRN Reason: Nausea and Vomiting Pharmacy Consult (Consult Rx Perform Med Rec) 1 each MISCELLANE ONCE PRN PRN Reason: Consult order Psyllium Hydrophilic Mucilloid (Psyllium Seed 3.4 Gm Powd.Pack) 3.4 gm PO BEDTIME PRN PRN Reason: Constipation Sodium Chloride (0.9 % Sodium Chloride Flush 3 Ml Syringe) [facility] Last Admin: 01/05/22 00:42 Dose: 3 ml Documented by: BC <Maite Givens PA-C - Last Filed: 01/05/22 09:48> Labs CBC & Chem 7: : 01/05/22 06:18 01/05/22 06:18 <Maite Givens PA-C - Last Filed: 01/05/22 09:48> Labs: Laboratory Results - last 24 hr 01/04/22 01/05/22 06:06 06:18 Anion Gap 12 Estim Creat Clear Calc 50.2 Estimated GFR > 60 Random Glucose 96 Calcium 8.9 Total Bilirubin 1.5 H Direct Bilirubin 1.1 H AST 101 H ALT 210 H Alkaline Phosphatase 314 H Total Protein 5.5 L Albumin 3.1 L <Maite Givens PA-C - Last Filed: 01/05/22 09:48> Microbiology Microbiology Results: Microbiology 01/02/22 20:02 Blood Culture - Preliminary Blood - Venous No growth after 48 hours. 01/02/22 20:03 Blood Culture - Preliminary Blood - Venous No growth after 48 hours. 01/02/22 19:56 Urine Culture - Final Urine clean catch - Urine hardwick top Escherichia coli <SIMON Morillo Last Filed: 01/05/22 09:48> Procedures Date of Service Date of Service: 01/05/22 <Maite Givens PA-C - Last Filed: 01/05/22 09:48> Progress Note: A&P Assessment and plan (1) Acute gallstone pancreatitis: Status: Acute <Maite Givens PA-C - Last Filed: 01/05/22 09:48> Plan 86 year old female admitted with choledocolithiasis. POD #1 s/p ERCP with sphincterotomy and removal of CBD stones. Bili has now normalized. GB did not fill on imaging and is tender in RUQ suggestive of cholecystitis. Discussed with her proceeding with laparoscopic cholecystectomy, possible open during this admission to prevent recurrence, treatment of cholecystitis. She agrees to proceed as her son is coming up to care for her with Alzheimers. ?Over weekend or more likely Saturday. Can advance to clear liquids and then low fat if she tolerates in the mean time. Cont IV abx. Patient comfortable with plan. <Maite Givens PA-C - Last Filed: 01/05/22 09:48> 86 year old female admitted with choledocolithiasis. POD #1 s/p ERCP with sphincterotomy and removal of CBD stones. Bili has now normalized. GB did not fill on imaging and is tender in RUQ suggestive of cholecystitis. Discussed with her proceeding with laparoscopic cholecystectomy, possible open during this admission to prevent recurrence, treatment of cholecystitis. She agrees to proceed as her son is coming up to care for her with Alzheimers. ?Over weekend or more likely Saturday. Can advance to clear liquids and then low fat if she tolerates in the mean time. Cont IV abx. Patient comfortable with plan. Agree with the above assessment and plan. Patient feels improved with decreased abdominal pain, s/p ERCP. Agree with laparoscopic cholecystectectomy, possibly over weekend or Saturday. <Ru Berry MD - Last Filed: 01/05/22 16:16> Fall Risk Details Current Medications: Current Medications Acetaminophen (Acetaminophen Supp 650 Mg Supp.Rect) 650 mg [place] Q6H PRN PRN Reason: Pain, Mild (Pain Scale 1-3) Atorvastatin Calcium (Atorvastatin Calcium 10 Mg Tablet) 10 mg PO BEDTIME [facility] Last Admin: 01/04/22 20:39 Dose: 10 mg Documented by: Carvedilol (Carvedilol 6.25 Mg Tablet) 6.25 mg PO BID [facility]; Protocol Last Admin: 01/04/22 20:39 Dose: 6.25 mg Documented by: Hydrochlorothiazide (Hydrochlorothiazide 12.5 Mg Tablet) 12.5 mg PO DAILY [facility] Last Admin: 01/04/22 09:27 Dose: Not Given Documented by: Metronidazole (Flagyl) 500 mg in 100 mls @ 100 mls/hr IV Q8H [facility] Last Infusion: 01/05/22 07:24 Dose: Infused Documented by: Ceftriaxone Sodium 1 gm/ (Sodium Chloride) 50 mls @ 100 mls/hr IV Q24H [facility] Last Infusion: 01/04/22 23:17 Dose: Infused Documented by: Lorazepam (Lorazepam 0.5 Mg Tablet) 0.5 mg PO DAILY PRN PRN Reason: Anxiety Morphine Sulfate (Morphine Sulfate 4 Mg/Ml Cartridge) 4 mg IVPUSH Q4H PRN; Protocol PRN Reason: Pain, Severe (Pain Scale 7-10) Last Admin: 01/03/22 06:18 Dose: 4 mg Documented by: Nifedipine (Nifedipine Er 60 Mg Tab.Er.24) 120 mg PO DAILY [facility]; Protocol Omeprazole (Omeprazole 20 Mg Capsule.Dr) 20 mg PO DAILY@0630 [facility] Last Admin: 01/05/22 05:54 Dose: 20 mg Documented by: Ondansetron HCl (Ondansetron Hcl 4 Mg/2 Ml Vial) 4 mg IVPUSH Q8H PRN PRN Reason: Nausea and Vomiting Last Admin: 01/03/22 23:33 Dose: 4 mg Documented by: Ondansetron HCl (Ondansetron Hcl 4 Mg/2 Ml Vial) 4 mg IVPUSH ONCE PRN PRN Reason: Nausea and Vomiting Pharmacy Consult (Consult Rx Perform Med Rec) 1 each MISCELLANE ONCE PRN PRN Reason: Consult order Psyllium Hydrophilic Mucilloid (Psyllium Seed 3.4 Gm Powd.Pack) 3.4 gm PO BEDTIME PRN PRN Reason: Constipation Sodium Chloride (0.9 % Sodium Chloride Flush 3 Ml Syringe) 3 ml IVFLUSH QSHIFT [facility] Last Admin: 01/05/22 00:42 Dose: 3 ml Documented by: <Maite Givens PA-C - Last Filed: 01/05/22 09:48> Time Spent With Patient Time: Total time spent is greater than 50% in coordination of care (as documented) at patient's floor/unit and/or counseling patient: <Maite Givens PA-C - Last Filed: 01/05/22 09:48> Quality Stroke Does the patient have a stroke diagnosis?: No <Maite Givens PA-C - Last Filed: 01/05/22 09:48> VTE Prior VTE?: No <Maite Givens PA-C - Last Filed: 01/05/22 09:48> VTE Risk Level:: Medical - moderate - high <Maite Givens PA-C - Last Filed: 01/05/22 09:48> VTE Device Contraindication: N/A - Device Ordered <Maite Givens PA-C - Last Filed: 01/05/22 09:48> VTE Drug Contraindication: Treatment Not Indicated <Maite Givens PA-C - Last Filed: 01/05/22 09:48>
[2022-01-05 09:17] LABS: Alanine Aminotransferase 136 U/L (0-31); Albumin Level 3.1 g/dL (3.5-5.0); Alkaline Phosphatase 295 U/L (39-117); Aspartate Amino Transferase 38 U/L (5-31); Bilirubin Direct 0.6 mg/dL (0.0-0.5); Bilirubin Total 0.8 mg/dL (0.0-1.0); Total Protein 5.5 g/dL (6.5-8.0)
[2022-01-05] MEDS: carvediloL 6.25 MG TABLET PO ×2 (10:40→20:09)
[2022-01-05] MEDS: NIFEdipine ER 60 MG TAB.ER.24 120 MG PO (10:40)
[2022-01-05] MEDS: hydroCHLOROthiazide 12.5 MG TABLET PO (10:40)
--- NOTE | 2022-01-05 11:17 | HO.POSTANES ---
Post Anesthesia Evaluation Post Anesthesia Evaluation Vital Signs: Vital Signs Temp Pulse Resp BP Pulse Ox 01/05/22 11:13 97.6 F 90 18 158/76 H 94 01/05/22 08:00 98.3 F 63 20 182/72 H 01/05/22 04:00 97.8 F 65 20 168/68 H 96 Anesthesia: General Mental Status: Awake Pain Control: Satisfactory Nausea/Vomiting: None Hydration: Adequate Anesthesia-Related Issues: No Anes. Related Issues
[2022-01-05] MEDS: Acetaminophen 325 MG TABLET 650 MG PO ×2 (14:36→20:16)
[2022-01-05] MEDS: Atorvastatin Calcium 10 MG TABLET PO (20:09)
[2022-01-05] MEDS: cefTRIAXone sodium 1 GM in 0.9 % Sodium Chloride 50 ML IV (20:10)
[2022-01-06 04:00] VITALS: BP 145/70; PULSE 68; RESP 17; TEMP 37; O2SAT 94
[2022-01-06] MEDS: Omeprazole 20 MG CAPSULE.DR PO (05:49)
[2022-01-06] MEDS: metroNIDAZOLE/NS 500 MG/100 ML PIGGYBACK 100 MG IV ×3 (05:49→21:16)
[2022-01-06 07:27] LABS: Lipase 71 U/L (8-78)
[2022-01-06 07:30] VITALS: BP 143/66; PULSE 68; RESP 20; TEMP 36.8; O2SAT 94
[2022-01-06 07:45] LABS: Alanine Aminotransferase 94 U/L (0-31); Albumin Level 3.2 g/dL (3.5-5.0); Alkaline Phosphatase 254 U/L (39-117); Anion Gap 14 (12-20); Bilirubin Direct 0.5 mg/dL (0.0-0.5); Bilirubin Total 0.8 mg/dL (0.0-1.0); Blood Urea Nitrogen 13 mg/dL (9-16); Calcium 8.7 mg/dL (8.4-10.2); Carbon Dioxide 30 mmol/L (22-29); Chloride 101 mmol/L (96-108); Creatinine Clr Calc Pharmacy 44.7; Estimated Glomerular Filt Rate > 60; Glucose Random 89 mg/dL (60-115); Potassium 3.8 mmol/L (3.3-5.1); Sodium 141 mmol/L (135-145); Total Protein 5.7 g/dL (6.5-8.0)
[2022-01-06 07:57] LABS: Aspartate Amino Transferase 23 U/L (5-31)
--- NOTE | 2022-01-06 07:59 | P.PNIM_ITS ---
Subjective Subjective Date of Service: 01/06/22 Interval History: gall stone pancreatitis , uncontroled htn Review of Systems abdominal pain improved significantly Less nauseated Denies any fever or chills or cough or fevers Physical Exam Vital Signs: Vital Signs: Last Vital Signs Temp 98.3 F 01/06/22 07:30 Pulse 68 01/06/22 07:30 Resp 20 01/06/22 07:30 BP 143/66 H 01/06/22 07:30 Pulse Ox 94 01/06/22 07:30 BMI result Body Mass Index 28.9 Appearance: Alert.? Oriented X3.? not in distress.? cvs: rrr, [id number] , no murmur res: clear to auscultation ,no rhonchii or wheezing abd: no rebound or guarding ,ruq pain and epigastric discomfort improving, bs present. ext pulses present , no cyanosis neuro: axo3 , nonfocal. ? Objective Data Active Medications Acetaminophen (Acetaminophen Supp 650 Mg Supp.Rect) 650 mg [place] Q6H PRN PRN Reason: Pain, Mild (Pain Scale 1-3) Acetaminophen (Acetaminophen 325 Mg Tablet) 650 mg PO Q6H PRN PRN Reason: Pain, Mild (Pain Scale 1-3) Last Admin: 01/05/22 20:16 Dose: 650 mg Documented by: ALBARO Atorvastatin Calcium (Atorvastatin Calcium 10 Mg Tablet) 10 mg PO BEDTIME [facility] Last Admin: 01/05/22 20:09 Dose: 10 mg Documented by: ALBARO Carvedilol (Carvedilol 6.25 Mg Tablet) 6.25 mg PO BID [facility]; Protocol Last Admin: 01/05/22 20:09 Dose: 6.25 mg Documented by: ALBARO Hydrochlorothiazide (Hydrochlorothiazide 12.5 Mg Tablet) 12.5 mg PO DAILY [facility] Last Admin: 01/05/22 10:40 Dose: 12.5 mg Documented by: VICKIE Metronidazole (Flagyl) 500 mg in 100 mls @ 100 mls/hr IV Q8H [facility] Last Infusion: 01/06/22 07:20 Dose: 0 mls/hr Documented by: RUDY Ceftriaxone Sodium 1 gm/ (Sodium Chloride) 50 mls @ 100 mls/hr IV Q24H [facility] Last Infusion: 01/05/22 22:45 Dose: 0 mls/hr Documented by: ALBARO Lorazepam (Lorazepam 0.5 Mg Tablet) 0.5 mg PO DAILY PRN PRN Reason: Anxiety Morphine Sulfate (Morphine Sulfate 4 Mg/Ml Cartridge) 4 mg IVPUSH Q4H PRN; Pr otocol PRN Reason: Pain, Severe (Pain Scale 7-10) Last Admin: 01/03/22 06:18 Dose: 4 mg Documented by: MANFRED Nifedipine (Nifedipine Er 60 Mg Tab.Er.24) 120 mg PO DAILY [facility]; Protocol Last Admin: 01/05/22 10:40 Dose: 120 mg Documented by: VICKIE Omeprazole (Omeprazole 20 Mg Capsule.Dr) 20 mg PO DAILY@0630 [facility] Last Admin: 01/06/22 05:49 Dose: 20 mg Documented by: ALBARO Ondansetron HCl (Ondansetron Hcl 4 Mg/2 Ml Vial) 4 mg IVPUSH Q8H PRN PRN Reason: Nausea and Vomiting Last Admin: 01/03/22 23:33 Dose: 4 mg Documented by: MANFRED Ondansetron HCl (Ondansetron Hcl 4 Mg/2 Ml Vial) 4 mg IVPUSH ONCE PRN PRN Reason: Nausea and Vomiting Pharmacy Consult (Consult Rx Perform Med Rec) 1 each MISCELLANE ONCE PRN PRN Reason: Consult order Psyllium Hydrophilic Mucilloid (Psyllium Seed 3.4 Gm Powd.Pack) 3.4 gm PO BEDTIME PRN PRN Reason: Constipation Sodium Chloride (0.9 % Sodium Chloride Flush 3 Ml Syringe) 3 ml IVFLUSH QSHIFT [facility] Last Admin: 01/05/22 20:10 Dose: 3 ml Documented by: ALBARO Labs CBC & Chem 7: 01/05/22 06:18 01/06/22 06:33 Labs: Laboratory Results - last 24 hr 01/05/22 01/06/22 01/06/22 06:18 06:33 06:33 Anion Gap 14 Estim Creat Clear Calc 44.7 Estimated GFR > 60 Random Glucose 89 Calcium 8.7 Total Bilirubin 0.8 0.8 Direct Bilirubin 0.6 H 0.5 AST 38 H D 23 ALT 136 H 94 H Alkaline Phosphatase 295 H 254 H Total Protein 5.5 L 5.7 L Albumin 3.1 L 3.2 L Lipase 71 Assessment and Plan (1) Acute gallstone pancreatitis: Status: Acute Plan 86-year-old female past medical history hypertension hyperlipidemia presents to the hospital with complaints of epigastric pain found to have acute pancreatitis 1.?acute gallstone pancreatitis - patient presents with epigastric abdominal pain found to have significant e levation in lipase - As well as CT abdominal finding of cholelithiasis - patient will be treated with aggressive IV fluid,pain meds,IV antibiotics given the CT findings of dilated bile duct Gi recomended mrcp and general surgery recomended -s/p ercp01/04 - sphincterotomy was performed to 12 mm and a 12 mm extraction balloon was sweeped down the CBD multiple times, seems better afterwards advance diet tolow fat cholecystectomy over the vs saturday 2.?hypertension - stable - will resume her medications 3.?hyperlipidemia - stable - continue home meds DVT prophylaxis:? SCDs need for inpatient:? need cholecystectomy Quality Stroke Does the patient have a stroke diagnosis?: No VTE Prior VTE?: No VTE Risk Level:: Medical - moderate - high VTE Device Contraindication: N/A - Device Ordered VTE Drug Contraindication: Treatment Not Indicated
[2022-01-06] MEDS: NIFEdipine ER 60 MG TAB.ER.24 120 MG PO (08:11)
[2022-01-06] MEDS: carvediloL 6.25 MG TABLET PO ×2 (08:11→20:25)
[2022-01-06] MEDS: hydroCHLOROthiazide 12.5 MG TABLET PO (08:11)
[2022-01-06] MEDS: 0.9 % Sodium Chloride Flush 3 ML SYRINGE IVFLUSH ×2 (08:12→16:24)
[2022-01-06] MEDS: Acetaminophen 325 MG TABLET 650 MG PO ×2 (08:16→18:58)
[2022-01-06 11:12] VITALS: BP 127/65; PULSE 67; RESP 20; TEMP 36.4; O2SAT 95
[2022-01-06 13:00] VITALS: O2SAT 95
[2022-01-06 15:11] VITALS: BP 131/59; PULSE 67; RESP 18; TEMP 37.1; O2SAT 98
--- NOTE | 2022-01-06 17:35 | PC.NURSE ---
bruise to left eye, pt denied fall , she denied hitting her head ,nose or eye. She stated that her daughter noted that bruise yesterday. Patient denied any pain to that area, no change in vision . DR. Cordon was notified
--- NOTE | 2022-01-06 18:31 | P.PNGS_ITS ---
Subjective Subjective Date of Service: 01/06/22 Patient reports: no new complaints Physical Exam Vital Signs: Vital Signs: Last Vital Signs Temp 98.7 F 01/06/22 15:11 Pulse 67 01/06/22 15:11 Resp 18 01/06/22 15:11 BP 131/59 L 01/06/22 15:11 Pulse Ox 98 01/06/22 15:11 BMI result Body Mass Index 28.9 GI: Other: soft nontender Objective Data Active Medications Acetaminophen (Acetaminophen Supp 650 Mg Supp.Rect) 650 mg [place] Q6H PRN PRN Reason: Pain, Mild (Pain Scale 1-3) Acetaminophen (Acetaminophen 325 Mg Tablet) 650 mg PO Q6H PRN PRN Reason: Pain, Mild (Pain Scale 1-3) Last Admin: 01/06/22 08:16 Dose: 650 mg Documented by: RUDY Atorvastatin Calcium (Atorvastatin Calcium 10 Mg Tablet) 10 mg PO BEDTIME [facility] Last Admin: 01/05/22 20:09 Dose: 10 mg Documented by: ALBARO Carvedilol (Carvedilol 6.25 Mg Tablet) 6.25 mg PO BID [facility]; Protocol Last Admin: 01/06/22 08:11 Dose: 6.25 mg Documented by: RUDY Hydrochlorothiazide (Hydrochlorothiazide 12.5 Mg Tablet) 12.5 mg PO DAILY [facility] Last Admin: 01/06/22 08:11 Dose: 12.5 mg Documented by: RUDY Metronidazole (Flagyl) 500 mg in 100 mls @ 100 mls/hr IV Q8H [facility] Last Infusion: 01/06/22 13:34 Dose: 0 mls/hr Documented by: RUDY Ceftriaxone Sodium 1 gm/ (Sodium Chloride) 50 mls @ 100 mls/hr IV Q24H [facility] Last Infusion: 01/05/22 22:45 Dose: 0 mls/hr Documented by: ALBARO Lorazepam (Lorazepam 0.5 Mg Tablet) 0.5 mg PO DAILY PRN PRN Reason: Anxiety Morphine Sulfate (Morphine Sulfate 4 Mg/Ml Cartridge) 4 mg IVPUSH Q4H PRN; Protocol PRN Reason: Pain, Severe (Pain Scale 7-10) Last Admin: 01/03/22 06:18 Dose: 4 mg Documented by: MANFRED Nifedipine (Nifedipine Er 60 Mg Tab.Er.24) 120 mg PO DAILY [facility]; Protocol Last Admin: 01/06/22 08:11 Dose: 120 mg Documented by: RUDY Omeprazole (Omeprazole 20 Mg Capsule.) 20 mg PO DAILY@0630 [facility] Last Admin: 01/06/22 05:49 Dose: 20 mg Documented by: ALBARO Ondansetron HCl (Ondansetron Hcl 4 Mg/2 Ml Vial) 4 mg IVPUSH Q8H PRN PRN Reason: Nausea and Vomiting Last Admin: 01/03/22 23:33 Dose: 4 mg Documented by: MANFRED Ondansetron HCl (Ondansetron Hcl 4 Mg/2 Ml Vial) 4 mg IVPUSH ONCE PRN PRN Reason: Nausea and Vomiting Pharmacy Consult (Consult Rx Perform Med Rec) 1 each MISCELLANE ONCE PRN PRN Reason: Consult order Psyllium Hydrophilic Mucilloid (Psyllium Seed 3.4 Gm Powd.Pack) 3.4 gm PO BEDTIME PRN PRN Reason: Constipation Sodium Chloride (0.9 % Sodium Chloride Flush 3 Ml Syringe) 3 ml IVFLUSH QSHIFT [facility] Last Admin: 01/06/22 16:24 Dose: 3 ml Documented by: JAE Labs CBC & Chem 7: 01/05/22 06:18 01/06/22 06:33 Labs: Laboratory Results - last 24 hr 01/06/22 01/06/22 06:33 06:33 Anion Gap 14 Estim Creat Clear Calc 44.7 Estimated GFR > 60 Random Glucose 89 Calcium 8.7 Total Bilirubin 0.8 Direct Bilirubin 0.5 AST 23 ALT 94 H Alkaline Phosphatase 254 H Total Protein 5.7 L Albumin 3.2 L Lipase 71 Procedures Date of Service Date of Service: 01/06/22 Progress Note: A&P Assessment and plan (1) Acute gallstone pancreatitis: Status: Acute Plan pt doing well s/p ercp 2 days ago and labs good. plan lap virgen tomorrow. pt and family understand and agree with risks nd benefits including but not limited to bleeding infection bile duct injury bowel injury open procedure. Fall Risk Details Current Medications: Current Medications Acetaminophen (Acetaminophen Supp 650 Mg Supp.Rect) 650 mg [place] Q6H PRN PRN Reason: Pain, Mild (Pain Scale 1-3) Acetaminophen (Acetaminophen 325 Mg Tablet) 650 mg PO Q6H PRN PRN Reason: Pain, Mild (Pain Scale 1-3) Last Admin: 01/06/22 08:16 Dose: 650 mg Documented by: Atorvastatin Calcium (Atorvastatin Calcium 10 Mg Tablet) 10 mg PO BEDTIME [facility] Last Admin: 01/05/22 20:09 Dose: 10 mg Documented by: Carvedilol (Carvedilol 6.25 Mg Tablet) 6.25 mg PO BID [facility]; Protocol Last Admin: 01/06/22 08:11 Dose: 6.25 mg Documented by: Hydrochlorothiazide (Hydrochlorothiazide 12.5 Mg Tablet) 12.5 mg PO DAILY [facility] Last Admin: 01/06/22 08:11 Dose: 12.5 mg Documented by: Metronidazole (Flagyl) 500 mg in 100 mls @ 100 mls/hr IV Q8H [facility] Last Infusion: 01/06/22 13:34 Dose: Infused Documented by: Ceftriaxone Sodium 1 gm/ (Sodium Chloride) 50 mls @ 100 mls/hr IV Q24H [facility] Last Infusion: 01/05/22 22:45 Dose: Infused Documented by: Lorazepam (Lorazepam 0.5 Mg Tablet) 0.5 mg PO DAILY PRN PRN Reason: Anxiety Morphine Sulfate (Morphine Sulfate 4 Mg/Ml Cartridge) 4 mg IVPUSH Q4H PRN; Protocol PRN Reason: Pain, Severe (Pain Scale 7-10) Last Admin: 01/03/22 06:18 Dose: 4 mg Documented by: Nifedipine (Nifedipine Er 60 Mg Tab.Er.24) 120 mg PO DAILY [facility]; Protocol Last Admin: 01/06/22 08:11 Dose: 120 mg Documented by: Omeprazole (Omeprazole 20 Mg Capsule.Dr) 20 mg PO DAILY@0630 [facility] Last Admin: 01/06/22 05:49 Dose: 20 mg Documented by: Ondansetron HCl (Ondansetron Hcl 4 Mg/2 Ml Vial) 4 mg IVPUSH Q8H PRN PRN Reason: Nausea and Vomiting Last Admin: 01/03/22 23:33 Dose: 4 mg Documented by: Ondansetron HCl (Ondansetron Hcl 4 Mg/2 Ml Vial) 4 mg IVPUSH ONCE PRN PRN Reason: Nausea and Vomiting Pharmacy Consult (Consult Rx Perform Med Rec) 1 each MISCELLANE ONCE PRN PRN Reason: Consult order Psyllium Hydrophilic Mucilloid (Psyllium Seed 3.4 Gm Powd.Pack) 3.4 gm PO BEDTIME PRN PRN Reason: Constipation Sodium Chloride (0.9 % Sodium Chloride Flush 3 Ml Syringe) 3 ml IVFLUSH QSHIFT [facility] Last Admin: 01/06/22 16:24 Dose: 3 ml Documented by: Time Spent With Patient Time: Total time spent is greater than 50% in coordination of care (as documented) at patient's floor/unit and/or counseling patient: Quality Stroke Does the patient have a stroke diagnosis?: No VTE Prior VTE?: No VTE Risk Level:: Medical - moderate - high VTE Device Contraindication: N/A - Device Ordered VTE Drug Contraindication: Treatment Not Indicated
[2022-01-06 19:45] VITALS: BP 134/61; PULSE 70; RESP 18; TEMP 37.1; O2SAT 98
[2022-01-06] MEDS: cefTRIAXone sodium 1 GM in 0.9 % Sodium Chloride 50 ML IV (20:25)
[2022-01-06] MEDS: Atorvastatin Calcium 10 MG TABLET PO (20:25)
[2022-01-06] MEDS: 0.9 % Sodium Chloride 1,000 ML 75 ML IVCONT (22:23)
[2022-01-07] VITALS (14 sets, daily range): BP systolic 110–174; BP diastolic 56–90; PULSE 65–85; RESP 16–29; TEMP 36.2–37; O2SAT 93–98
[2022-01-07] MEDS: Acetaminophen 325 MG TABLET 650 MG PO ×2 (01:12→19:29)
[2022-01-07] MEDS: LORazepam 0.5 MG TABLET PO (04:39)
[2022-01-07] MEDS: metroNIDAZOLE/NS 500 MG/100 ML PIGGYBACK 100 MG IV ×3 (04:40→21:27)
--- NOTE | 2022-01-07 07:48 | P.PNIM_ITS ---
Subjective Subjective Date of Service: 01/07/22 Interval History: abd pain Review of Systems abdominal pain improved significantly Less nauseated Denies any fever or chills or cough or fevers Physical Exam Vital Signs: Vital Signs: Last Vital Signs Temp 97.9 F 01/07/22 07:24 Pulse 84 01/07/22 07:24 Resp 16 01/07/22 07:24 BP 161/72 H 01/07/22 07:24 Pulse Ox 93 01/07/22 07:24 BMI result Body Mass Index 28.9 Appearance: Alert.? Oriented X3.? not in distress.? cvs: rrr, [id number] , no murmur res: clear to auscultation ,no rhonchii or wheezing abd: no rebound or guarding ,ruq pain improved significantly, bs present. ext pulses present , no cyanosis neuro: axo3 , nonfocal. ? Objective Data Active Medications Acetaminophen (Acetaminophen Supp 650 Mg Supp.Rect) 650 mg [place] Q6H PRN PRN Reason: Pain, Mild (Pain Scale 1-3) Acetaminophen (Acetaminophen 325 Mg Tablet) 650 mg PO Q6H PRN PRN Reason: Pain, Mild (Pain Scale 1-3) Last Admin: 01/07/22 01:12 Dose: 650 mg Documented by: BUFFY Atorvastatin Calcium (Atorvastatin Calcium 10 Mg Tablet) 10 mg PO BEDTIME [facility] Last Admin: 01/06/22 20:25 Dose: 10 mg Documented by: JAE Carvedilol (Carvedilol 6.25 Mg Tablet) 6.25 mg PO BID [facility]; Protocol Last Admin: 01/06/22 20:25 Dose: 6.25 mg Documented by: JAE Hydrochlorothiazide (Hydrochlorothiazide 12.5 Mg Tablet) 12.5 mg PO DAILY [facility] Last Admin: 01/06/22 08:11 Dose: 12.5 mg Documented by: RUDY Metronidazole (Flagyl) 500 mg in 100 mls @ 100 mls/hr IV Q8H [facility] Last Infusion: 01/07/22 05:07 Dose: 0 mls/hr Documented by: BUFFY Ceftriaxone Sodium 1 gm/ (Sodium Chloride) 50 mls @ 100 mls/hr IV Q24H [facility] Last Infusion: 01/06/22 21:21 Dose: 0 mls/hr Documented by: JAE Sodium Chloride (Ns) 1,000 mls @ 75 mls/hr IVCONT .[id number] [facility] Last Admin: 01/06/22 22:23 Dose: 75 mls/hr Documented by: JAE Lorazepam (Lorazepam 0.5 Mg Tablet) 0.5 mg PO DAILY PRN PRN Reason: Anxiety Last Admin: 01/07/22 04:39 Dose: 0.5 mg Documented by: BUFFY Morphine Sulfate (Morphine Sulfate 4 Mg/Ml Cartridge) 4 mg IVPUSH Q4H PRN; Protocol PRN Reason: Pain, Severe (Pain Scale 7-10) Last Admin: 01/03/22 06:18 Dose: 4 mg Documented by: MANFRED Nifedipine (Nifedipine Er 60 Mg Tab.Er.24) 120 mg PO DAILY [facility]; Protocol Last Admin: 01/06/22 08:11 Dose: 120 mg Documented by: RUDY Omeprazole (Omeprazole 20 Mg Capsule.Dr) 20 mg PO DAILY@0630 [facility] Last Admin: 01/07/22 04:36 Dose: Not Given Documented by: BUFFY Non-Admin Reason: NPO Ondansetron HCl (Ondansetron Hcl 4 Mg/2 Ml Vial) 4 mg IVPUSH Q8H PRN PRN Reason: Nausea and Vomiting Last Admin: 01/03/22 23:33 Dose: 4 mg Documented by: MANFRED Ondansetron HCl (Ondansetron Hcl 4 Mg/2 Ml Vial) 4 mg IVPUSH ONCE PRN PRN Reason: Nausea and Vomiting Pharmacy Consult (Consult Rx Perform Med Rec) 1 each MISCELLANE ONCE PRN PRN Reason: Consult order Psyllium Hydrophilic Mucilloid (Psyllium Seed 3.4 Gm Powd.Pack) 3.4 gm PO BEDTIME PRN PRN Reason: Constipation Sodium Chloride (0.9 % Sodium Chloride Flush 3 Ml Syringe) 3 ml IVFLUSH QSHIFT [facility] Last Admin: 01/06/22 23:50 Dose: Not Given Documented by: BUFFY Non-Admin Reason: IV Running Labs CBC & Chem 7: 01/07/22 09:18 01/07/22 09:18 Labs: Laboratory Results - last 24 hr 01/06/22 06:33 AST 23 Assessment and Plan (1) Acute gallstone pancreatitis: Status: Acute Plan 86-year-old female past medical history hypertension hyperlipidemia presents to the hospital with complaints of epigastric pain found to have acute pancreatitis 1.?acute gallstone pancreatitis - patient presents with epigastric abdominal pain found to have significant elevation in lipase - As well as CT abdominal finding of cholelithiasis - patient will be treated with aggressive IV fluid,pain meds,IV antibiotics given the CT findings of dilated bile duct Gi recomended mrcp and general surgery recomended -s/p ercp01/04 - sphincterotomy was performed to 12 mm and a 12 mm extraction balloon was sweeped down the CBD multiple times, seems better afterwards advance diet tolow fat cholecystectomy possible today 2.?hypertension - stable - will resume her medications 3.?hyperlipidemia - stable - continue home meds DVT prophylaxis:? SCDs need for inapetient: lap virgen Quality Stroke Does the patient have a stroke diagnosis?: No VTE Prior VTE?: No VTE Risk Level:: Medical - moderate - high VTE Device Contraindication: N/A - Device Ordered VTE Drug Contraindication: Treatment Not Indicated
[2022-01-07 09:29] LABS: Hematocrit 31.7 % (37.0-47.0); Hemoglobin 10.5 g/dl (12.0-16.0)
[2022-01-07 09:39] LABS: Anion Gap 13 (12-20); Blood Urea Nitrogen 13 mg/dL (9-16); Calcium 8.3 mg/dL (8.4-10.2); Carbon Dioxide 28 mmol/L (22-29); Chloride 103 mmol/L (96-108); Creatinine Clr Calc Pharmacy 45.2; Estimated Glomerular Filt Rate > 60; Glucose Random 98 mg/dL (60-115); Potassium 3.3 mmol/L (3.3-5.1); Sodium 141 mmol/L (135-145)
--- NOTE | 2022-01-07 11:01 | HO.ANESPROP2 ---
[facility] Active Problems Active Problems: All Active Problems (Updated 01/02/22 @ 20:33 by Teodoro Grover MD) Acute gallstone pancreatitis (Acute) Bradycardia (Acute) Hypertension (Acute) Aortic stenosis (Acute) Hyperlipidemia (Acute) Past Medical History Medical History Aortic stenosis Biliary colic Hyperlipidemia Hypertension Hypertension Family History Family History Father Heart disease Mother No problems noted. Brother Heart disease Family history of problems with anesthesia: No Surgical History Surgical History Hammertoe, bilateral Total knee replacement status History of Problems with Anesthesia: No Social History Social History Household Members: Spouse Housing: House Do you presently have visiting nurse or other home services: No Unable to assess alcohol history related to: Unknown Alcohol intake: current Alcohol intake frequency: holidays/special occasions only Alcohol type: hard liquor Patient Tobacco Use Status: Former Tobacco user Quit Date: 1981 Tobacco use type: Cigarette Years Smoked: 25 Smoked in Last 30 Days: No e-Cigarette/Vaping Use: Never Used Second Hand Smoke Exposure: No Use of substances other than those prescribed or required for medical reasons: No Currently Displaying Signs/Symptoms of Drug Intoxication Withdrawal: No Have you been hit, kicked, punched, or otherwise hurt by someone within the past year? If so, by whom?: No Do you feel safe in your current relationship?: Yes Is there a partner from a previous relationship who is making you feel unsafe now?: No Are you made to feel afraid or neglected: No Are you DNR?: Yes Advance Directives: Yes Advance Directives on File: Yes Advance Directives Date on File: 02/17/21 Do you have thoughts of harming others: None Do you have a plan to hurt others: No Plan Recently lost weight without trying: Unsure Nutrition Risks: Poor intake 0-25% >4 days Patient : No : No Poor oral hygiene: No service: No Current occupational status: retired Cognitive needs: No Hearing needs: No Vision needs: No Meds Allergies Allergy/AdvReac Type Severity Reaction Status Date / Time No Known Drug Intolerances Allergy Unknown NOT Verified 01/04/22 13:10 APPLICABLE Active Medications: Current Medications Acetaminophen (Acetaminophen Supp 650 Mg Supp.Rect) 650 mg [place] Q6H PRN PRN Reason: Pain, Mild (Pain Scale 1-3) Acetaminophen (Acetaminophen 325 Mg Tablet) 650 mg PO Q6H PRN PRN Reason: Pain, Mild (Pain Scale 1-3) Last Admin: 01/07/22 01:12 Dose: 650 mg Documented by: Atorvastatin Calcium (Atorvastatin Calcium 10 Mg Tablet) 10 mg PO BEDTIME [facility] Last Admin: 01/06/22 20:25 Dose: 10 mg Documented by: Carvedilol (Carvedilol 6.25 Mg Tablet) 6.25 mg PO BID [facility]; Protocol Last Admin: 01/07/22 10:17 Dose: Not Given Documented by: Hydrochlorothiazide (Hydrochlorothiazide 12.5 Mg Tablet) 12.5 mg PO DAILY [facility] Last Admin: 01/07/22 10:17 Dose: Not Given Documented by: Metronidazole (Flagyl) 500 mg in 100 mls @ 100 mls/hr IV Q8H [facility] Last Infusion: 01/07/22 05:07 Dose: Infused Documented by: Ceftriaxone Sodium 1 gm/ (Sodium Chloride) 50 mls @ 100 mls/hr IV Q24H [facility] Last Infusion: 01/06/22 21:21 Dose: Infused Documented by: Sodium Chloride (Ns) 1,000 mls @ 75 mls/hr IVCONT .[id number] [facility] Last Admin: 01/06/22 22:23 Dose: 75 mls/hr Documented by: Lorazepam (Lorazepam 0.5 Mg Tablet) 0.5 mg PO DAILY PRN PRN Reason: Anxiety Last Admin: 01/07/22 04:39 Dose: 0.5 mg Documented by: Morphine Sulfate (Morphine Sulfate 4 Mg/Ml Cartridge) 4 mg IVPUSH Q4H PRN; Protocol PRN Reason: Pain, Severe (Pain Scale 7-10) Last Admin: 01/03/22 06:18 Dose: 4 mg Documented by: Nifedipine (Nifedipine Er 60 Mg Tab.Er.24) 120 mg PO DAILY [facility]; Protocol Last Admin: 01/07/22 10:17 Dose: Not Given Documented by: Omeprazole (Omeprazole 20 Mg Capsule.Dr) 20 mg PO DAILY@0630 [facility] Last Admin: 01/07/22 04:36 Dose: Not Given Documented by: Ondansetron HCl (Ondansetron Hcl 4 Mg/2 Ml Vial) 4 mg IVPUSH Q8H PRN PRN Reason: Nausea and Vomiting Last Admin: 01/03/22 23:33 Dose: 4 mg Documented by: Ondansetron HCl (Ondansetron Hcl 4 Mg/2 Ml Vial) 4 mg IVPUSH ONCE PRN PRN Reason: Nausea and Vomiting Pharmacy Consult (Consult Rx Perform Med Rec) 1 each MISCELLANE ONCE PRN PRN Reason: Consult order Psyllium Hydrophilic Mucilloid (Psyllium Seed 3.4 Gm Powd.Pack) 3.4 gm PO BEDTIME PRN PRN Reason: Constipation Sodium Chloride (0.9 % Sodium Chloride Flush 3 Ml Syringe) 3 ml IVFLUSH QSHIFT [facility] Last Admin: 01/07/22 10:17 Dose: Not Given Documented by: Home Medications Medication Instructions Recorded Confirmed Last Taken Type ergocalciferol (vitamin D2) 1,250 1,250 mcg PO Q2W 09/30/20 01/02/22 02/12/21 History mcg (50,000 unit) capsule aspirin 81 mg chewable tablet 81 mg PO BEDTIME 02/16/21 01/02/22 01/01/22 History lorazepam 0.5 mg tablet 0.5 mg PO DAILY PRN 02/16/21 01/02/22 Unknown History nifedipine 90 mg tablet,extended 90 mg PO DAILY 02/16/21 01/02/22 01/02/22 History release 24 hr pantoprazole 40 mg tablet,delayed 40 mg PO DAILY@0630 02/16/21 01/02/22 01/02/22 History release psyllium husk 0.52 gram capsule 1.04 g PO BEDTIME PRN 02/16/21 01/02/22 Unknown History (Metamucil) chlorthalidone 25 mg tablet 12.5 mg PO DAILY 10/26/21 01/02/22 01/02/22 History carvedilol 6.25 mg tablet 1 tab PO BID 01/02/22 01/02/22 Unknown History Exam Exam Date and Time: January 07, 2022 1101 Height,Weight and Vital Signs: Height 5 ft 1 in Weight 69.5 kg Last Vital Signs Temp 97.9 F 01/07/22 07:24 Pulse 84 01/07/22 07:24 Resp 16 01/07/22 07:24 BP 137/62 01/07/22 07:24 Pulse Ox 93 01/07/22 07:24 Pertinent Lab Results Pertinent Lab Results: Laboratory Tests 01/02/22 01/02/22 01/02/22 17:35 17:35 17:35 WBC 7.9 RBC 3.54 L Hgb 10.9 L Hct 31.9 L MCV 90.1 MCH 30.8 MCHC 34.2 RDW 12.3 Plt Count 210 MPV 9.7 Immature Gran % (Auto) 0.3 Neut % (Auto) 81.3 H Lymph % (Auto) 9.0 L [place] % (Auto) 8.9 Eos % (Auto) 0.4 Baso % (Auto) 0.1 Lymph # (Auto) 0.7 L [place] # (Auto) 0.7 Eos # (Auto) 0.0 Baso # (Auto) 0.0 Abs Immat Gran (auto) 0.02 Absolute Neuts (auto) 6.4 Absolute Nucleated RBC 0.000 Nucleated RBC % (auto) 0.0 PT 11.4 INR 1.0 APTT 29.5 Sodium 141 Potassium 3.7 Chloride 106 Carbon Dioxide 18 L Anion Gap 21 H BUN 45 H Creatinine 1.59 H Estim Creat Clear Calc 22.0 Estimated GFR 31 Random Glucose 103 Lactic Acid Calcium 9.4 Total Bilirubin 1.9 H Direct Bilirubin AST 336 H ALT 267 H Alkaline Phosphatase 449 H D Troponin I High Sens Total Protein 7.1 Albumin 4.0 Lipase 4906 H Urine Color Urine Appearance Urine pH Ur Specific [place] Urine Protein Urine Glucose (UA) Urine Ketones Urine Blood Urine Nitrite Ur Leukocyte Esterase Urine RBC Urine WBC Ur Squamous Epith Cells Urine Bacteria COVID-19 (SARAH) COVID-19 Clin Com Influenza Type A (LISA) Influenza Type B (LISA) Influenza A & B Note 01/02/22 01/02/22 01/02/22 17:35 17:35 18:04 WBC RBC Hgb Hct MCV MCH MCHC RDW Plt Count MPV Immature Gran % (Auto) Neut % (Auto) Lymph % (Auto) [place] % (Auto) Eos % (Auto) Baso % (Auto) Lymph # (Auto) [place] # (Auto) Eos # (Auto) Baso # (Auto) Abs Immat Gran (auto) Absolute Neuts (auto) Absolute Nucleated RBC Nucleated RBC % (auto) PT INR APTT Sodium Potassium Chloride Carbon Dioxide Anion Gap BUN Creatinine Estim Creat Clear Calc Estimated GFR Random Glucose Lactic Acid 2.0 Calcium Total Bilirubin Direct Bilirubin AST ALT Alkaline Phosphatase Troponin I High Sens 12.1 Total Protein Albumin Lipase Urine Color Urine Appearance Urine pH Ur Specific [place] Urine Protein Urine Glucose (UA) Urine Ketones Urine Blood Urine Nitrite Ur Leukocyte Esterase Urine RBC Urine WBC Ur Squamous Epith Cells Urine Bacteria COVID-19 (SARAH) COVID-19 Clin Com Influenza Type A (LISA) Negative Influenza Type B (LISA) Negative Influenza A & B Note See Note 01/02/22 01/02/22 01/02/22 18:04 19:47 20:02 WBC RBC Hgb Hct MCV MCH MCHC RDW Plt Count MPV Immature Gran % (Auto) Neut % (Auto) Lymph % (Auto) [place] % (Auto) Eos % (Auto) Baso % (Auto) Lymph # (Auto) [place] # (Auto) Eos # (Auto) Baso # (Auto) Abs Immat Gran (auto) Absolute Neuts (auto) Absolute Nucleated RBC Nucleated RBC % (auto) PT INR APTT Sodium Potassium Chloride Carbon Dioxide Anion Gap BUN Creatinine Estim Creat Clear Calc Estimated GFR Random Glucose Lactic Acid Calcium Total Bilirubin Direct Bilirubin 1.5 H AST ALT Alkaline Phosphatase Troponin I High Sens Total Protein Albumin Lipase Urine Color YELLOW Urine Appearance HAZY Urine pH 5.0 Ur Specific [place] 1.020 Urine Protein 1+ H Urine Glucose (UA) NEG Urine Ketones 5 Urine Blood NEG Urine Nitrite NEG Ur Leukocyte Esterase 2+ H Urine RBC 0-2 Urine WBC 76-150 H Ur Squamous Epith Cells 2+ Urine Bacteria 4+ COVID-19 (SARAH) Negative COVID-19 Clin Com See Note Influenza Type A (LISA) Influenza Type B (LISA) Influenza A & B Note 01/02/22 01/02/22 01/03/22 20:03 20:03 06:14 WBC 7.2 RBC 3.38 L Hgb 10.2 L Hct 30.7 L MCV 90.8 MCH 30.2 MCHC 33.2 RDW 12.7 Plt Count 202 MPV 10.2 Immature Gran % (Auto) 0.1 Neut % (Auto) 81.2 H Lymph % (Auto) 10.6 L [place] % (Auto) 7.3 Eos % (Auto) 0.7 Baso % (Auto) 0.1 Lymph # (Auto) 0.8 L [place] # (Auto) 0.5 Eos # (Auto) 0.1 Baso # (Auto) 0.0 Abs Immat Gran (auto) 0.01 Absolute Neuts (auto) 5.8 Absolute Nucleated RBC 0.000 Nucleated RBC % (auto) 0.0 PT INR APTT Sodium Potassium Chloride Carbon Dioxide Anion Gap BUN Creatinine Estim Creat Clear Calc Estimated GFR Random Glucose Lactic Acid Calcium Total Bilirubin Direct Bilirubin AST ALT Alkaline Phosphatase Troponin I High Sens Total Protein Albumin Lipase Urine Color Urine Appearance Urine pH Ur Specific [place] Urine Protein Urine Glucose (UA) Urine Ketones Urine Blood Urine Nitrite Ur Leukocyte Esterase Urine RBC Urine WBC Ur Squamous Epith Cells Urine Bacteria COVID-19 (SARAH) Cancelled COVID-19 Clin Com Cancelled Influenza Type A (LISA) Cancelled Influenza Type B (LISA) Cancelled Influenza A & B Note Cancelled 01/03/22 01/04/22 01/04/22 06:14 06:06 06:06 WBC 4.8 RBC 3.34 L Hgb 10.1 L Hct 30.5 L MCV 91.3 MCH 30.2 MCHC 33.1 RDW 12.8 Plt Count 180 MPV 10.9 Immature Gran % (Auto) Neut % (Auto) Lymph % (Auto) [place] % (Auto) Eos % (Auto) Baso % (Auto) Lymph # (Auto) [place] # (Auto) Eos # (Auto) Baso # (Auto) Abs Immat Gran (auto) Absolute Neuts (auto) Absolute Nucleated RBC 0.000 Nucleated RBC % (auto) 0.0 PT INR APTT Sodium 142 139 Potassium 3.8 3.6 Chloride 107 105 Carbon Dioxide 24 24 Anion Gap 15 14 BUN 36 H 23 H Creatinine 1.40 1.01 Estim Creat Clear Calc 26.2 36.3 Estimated GFR 36 52 Random Glucose 103 95 Lactic Acid Calcium 8.9 8.9 Total Bilirubin 2.9 H 1.5 H Direct Bilirubin 2.4 H 1.1 H AST 281 H 101 H ALT 322 H 210 H Alkaline Phosphatase 377 H 314 H Troponin I High Sens Total Protein 6.1 L 5.5 L Albumin 3.5 3.1 L Lipase 788 H Urine Color Urine Appearance Urine pH Ur Specific [place] Urine Protein Urine Glucose (UA) Urine Ketones Urine Blood Urine Nitrite Ur Leukocyte Esterase Urine RBC Urine WBC Ur Squamous Epith Cells Urine Bacteria COVID-19 (SARAH) COVID-19 Clin Com Influenza Type A (LISA) Influenza Type B (LISA) Influenza A & B Note 01/05/22 01/05/22 01/06/22 06:18 06:18 06:33 WBC RBC Hgb 9.6 L Hct 28.6 L MCV MCH MCHC RDW Plt Count MPV Immature Gran % (Auto) Neut % (Auto) Lymph % (Auto) [place] % (Auto) Eos % (Auto) Baso % (Auto) Lymph # (Auto) [place] # (Auto) Eos # (Auto) Baso # (Auto) Abs Immat Gran (auto) Absolute Neuts (auto) Absolute Nucleated RBC Nucleated RBC % (auto) PT INR APTT Sodium 139 Potassium 3.4 Chloride 102 Carbon Dioxide 28 Anion Gap 12 BUN 14 Creatinine 0.73 Estim Creat Clear Calc 50.2 Estimated GFR > 60 Random Glucose 96 Lactic Acid Calcium 8.9 Total Bilirubin 0.8 Direct Bilirubin 0.6 H AST 38 H D ALT 136 H Alkaline Phosphatase 295 H Troponin I High Sens Total Protein 5.5 L Albumin 3.1 L Lipase 71 Urine Color Urine Appearance Urine pH Ur Specific [place] Urine Protein Urine Glucose (UA) Urine Ketones Urine Blood Urine Nitrite Ur Leukocyte Esterase Urine RBC Urine WBC Ur Squamous Epith Cells Urine Bacteria COVID-19 (SARAH) COVID-19 Clin Com Influenza Type A (LISA) Influenza Type B (LISA) Influenza A & B Note 01/06/22 01/07/22 01/07/22 06:33 09:18 09:18 WBC RBC Hgb 10.5 L Hct 31.7 L MCV MCH MCHC RDW Plt Count MPV Immature Gran % (Auto) Neut % (Auto) Lymph % (Auto) [place] % (Auto) Eos % (Auto) Baso % (Auto) Lymph # (Auto) [place] # (Auto) Eos # (Auto) Baso # (Auto) Abs Immat Gran (auto) Absolute Neuts (auto) Absolute Nucleated RBC Nucleated RBC % (auto) PT INR APTT Sodium 141 141 Potassium 3.8 3.3 Chloride 101 103 Carbon Dioxide 30 H 28 Anion Gap 14 13 BUN 13 13 Creatinine 0.82 0.81 Estim Creat Clear Calc 44.7 45.2 Estimated GFR > 60 > 60 Random Glucose 89 98 Lactic Acid Calcium 8.7 8.3 L Total Bilirubin 0.8 Direct Bilirubin 0.5 AST 23 ALT 94 H Alkaline Phosphatase 254 H Troponin I High Sens Total Protein 5.7 L Albumin 3.2 L Lipase Urine Color Urine Appearance Urine pH Ur Specific [place] Urine Protein Urine Glucose (UA) Urine Ketones Urine Blood Urine Nitrite Ur Leukocyte Esterase Urine RBC Urine WBC Ur Squamous Epith Cells Urine Bacteria COVID-19 (SARAH) COVID-19 Clin Com Influenza Type A (LISA) Influenza Type B (LISA) Influenza A & B Note Airway Mallampati Class: III TM Dist: >3cm Neck ROM: Limited Assessment and Plan Assessment Anesthesia Assessment: Anesthesia Plan Discussed and Chart Reviewed Final Anesthetic Review Family History of Problems with Anesthesia: No History of Problems with Anesthesia: No NPO: Yes ASA Class: III and Emergency Final Preanesthetic Review: No Changes in Pt Med Stat, Meds/Allgs Chart Reviewed, Consent Obtained/Reviewed and Anes Risks/Benef Reviewed Patient Risk: Intermediate Procedure Risk: Intermediate Anesthetic Plan Anesthetic Plan: GA Disposition: Standard PACU
[2022-01-07] MEDS: fentaNYL citrate/PF 100 MCG/2 ML VIAL 25 MCG IVPUSH (13:33)
[2022-01-07 15:10] LABS: Hematocrit 33.7 % (37.0-47.0); Hemoglobin 11.2 g/dl (12.0-16.0)
[2022-01-07] MEDS: 0.9 % Sodium Chloride 1,000 ML 75 ML IVCONT (15:16)
[2022-01-07] MEDS: 0.9 % Sodium Chloride Flush 3 ML SYRINGE IVFLUSH (15:17)
[2022-01-07 20:35] LABS: Hemoglobin 9.8 g/dl (12.0-16.0)
[2022-01-07] MEDS: cefTRIAXone sodium 1 GM in 0.9 % Sodium Chloride 50 ML IV (21:26)
[2022-01-07] MEDS: carvediloL 6.25 MG TABLET PO (21:26)
[2022-01-07] MEDS: Atorvastatin Calcium 10 MG TABLET PO (21:27)
--- NOTE | 2022-01-07 22:27 | P.BOP_ITS ---
Brief Operative Note Date of Service: 01/07/22 Pre-op diagnosis: gallstone pancreatitis Post-op diagnosis: same Procedure: lap virgen Surgeon: Kathrine Nobles MD Anesthesia: GETA Was an [employer] Compliance Coordinator used for this Procedure?: No Estimated blood loss (mL): 100 Pathology: other Condition: stable Disposition: PACU
[2022-01-08] VITALS (8 sets, daily range): BP systolic 126–156; BP diastolic 53–89; PULSE 71–84; RESP 17–20; TEMP 36.1–36.8; O2SAT 90–97
[2022-01-08] MEDS: metroNIDAZOLE/NS 500 MG/100 ML PIGGYBACK 100 MG IV ×3 (05:00→21:48)
[2022-01-08] MEDS: Omeprazole 20 MG CAPSULE.DR PO (05:01)
[2022-01-08] MEDS: Acetaminophen 325 MG TABLET 650 MG PO ×2 (05:06→16:45)
[2022-01-08] MEDS: 0.9 % Sodium Chloride 1,000 ML 75 ML IVCONT ×2 (05:12→21:06)
[2022-01-08 06:32] LABS: MANUAL DIFF FLAG NO
[2022-01-08 06:37] LABS: Basophils Percent Auto 0.1 % (0-2); Eosinophils Percent Auto 0.1 % (0-4); Hematocrit 26.9 % (37.0-47.0); Hemoglobin 8.6 g/dl (12.0-16.0); Imm Gran Abs Auto 0.03 X10*3/uL (0.00-0.03); Imm Gran Pct Auto 0.3 % (0.0-0.4); Mean Corpuscular Hemoglobin 29.7 pg (27.0-33.0); Mean Corpuscular Volume 92.8 fL (80.0-98.0); Mean Platelet Volume 9.2 fL (9.4-12.3); Monocytes Absolute Auto 0.8 X10*3/uL (0.1-1.2); Monocytes Percent Auto 8.2 % (2-11); Neutrophils Absolute Auto 7.7 x10*3/uL (2.0-8.3); Neutrophils Percent Auto 81.3 % (45-73); Platelet Count 305 X10*3/uL (160-400); Red Cell Distribution Width 12.9 % (11.0-16.0); White Blood Count 9.5 X10*3/uL (4.8-10.8)
[2022-01-08 07:04] LABS: Alanine Aminotransferase 49 U/L (0-31); Albumin Level 2.7 g/dL (3.5-5.0); Alkaline Phosphatase 155 U/L (39-117); Anion Gap 14 (12-20); Aspartate Amino Transferase 31 U/L (5-31); Bilirubin Direct 0.3 mg/dL (0.0-0.5); Bilirubin Total 0.6 mg/dL (0.0-1.0); Blood Urea Nitrogen 14 mg/dL (9-16); Calcium 7.5 mg/dL (8.4-10.2); Carbon Dioxide 26 mmol/L (22-29); Chloride 107 mmol/L (96-108); Estimated Glomerular Filt Rate > 60; Glucose Random 76 mg/dL (60-115); Potassium 3.5 mmol/L (3.3-5.1); Sodium 143 mmol/L (135-145); Total Protein 4.8 g/dL (6.5-8.0)
[2022-01-08] MEDS: hydroCHLOROthiazide 12.5 MG TABLET PO (08:35)
[2022-01-08] MEDS: Morphine Sulfate 4 MG/ML CARTRIDGE IVPUSH ×2 (08:35→23:20)
[2022-01-08] MEDS: NIFEdipine ER 60 MG TAB.ER.24 120 MG PO (08:36)
[2022-01-08] MEDS: carvediloL 6.25 MG TABLET PO ×2 (08:36→21:04)
--- NOTE | 2022-01-08 10:32 | P.PNGS_ITS ---
Subjective Subjective Date of Service: 01/08/22 Interval history: Feels ok this morning. Sore but comfortable with meds. Was able to get OOB and participate with PT. Tolerating liquids. Physical Exam Vital Signs: Vital Signs: Last Vital Signs Temp 97.9 F 01/08/22 07:27 Pulse 72 01/08/22 07:27 Resp 17 01/08/22 07:27 BP 145/66 H 01/08/22 07:27 Pulse Ox 93 01/08/22 07:27 BMI result Body Mass Index 28.9 Const: General: comfortable, no acute distress and alert Orientation/consci ousness: patient oriented x3 Resp: Effort & Inspection: normal respiratory effort GI: Other: MARAÍ drain with serosanguineous drainage Inspection: No distended and Yes incision (dressings c/d/i) Palpation (GI): Soft to palpation, Tenderness to palpation present (GI) (incisional, mild), no guarding and not rigid Skin: General skin exam: no rashes or lesions noted Neuro: General: patient oriented x3 Objective Data Active Medications Acetaminophen (Acetaminophen Supp 650 Mg Supp.Rect) 650 mg RI Q6H PRN PRN Reason: Pain, Mild (Pain Scale 1-3) Acetaminophen (Acetaminophen 325 Mg Tablet) 650 mg PO Q6H PRN PRN Reason: Pain, Mild (Pain Scale 1-3) Last Admin: 01/08/22 05:06 Dose: 650 mg Documented by: ROBIN Atorvastatin Calcium (Atorvastatin Calcium 10 Mg Tablet) 10 mg PO BEDTIME [facility] Last Admin: 01/07/22 21:27 Dose: 10 mg Documented by: JAE Carvedilol (Carvedilol 6.25 Mg Tablet) 6.25 mg PO BID [facility]; Protocol Last Admin: 01/08/22 08:36 Dose: 6.25 mg Documented by: JELANI Fentanyl (Fentanyl Citrate/Pf 100 Mcg/2 Ml Vial) 25 mcg IVPUSH Q5M PRN; Protocol PRN Reason: Pain, Moderate (Pain Scale 4-6 Last Admin: 01/07/22 13:33 Dose: 12.5 mcg Documented by: DANY Hydrochlorothiazide (Hydrochlorothiazide 12.5 Mg Tablet) 12.5 mg PO DAILY [facility] Last Admin: 01/08/22 08:35 Dose: 12.5 mg Documented by: JELANI Metronidazole (Flagyl) 500 mg in 100 mls @ 100 mls/hr IV Q8H [facility] Last Infusion: 01/08/22 06:19 Dose: 0 mls/hr Documented by: ROBIN Ceftriaxone Sodium 1 gm/ (Sodium Chloride) 50 mls @ 100 mls/hr IV Q24H [facility] Last Infusion: 01/07/22 21:56 Dose: 0 mls/hr Documented by: JAE Sodium Chloride (Ns) 1,000 mls @ 75 mls/hr IVCONT .[id number] [facility] Last Admin: 01/08/22 05:12 Dose: 75 mls/hr Documented by: ROBIN Lorazepam (Lorazepam 0.5 Mg Tablet) 0.5 mg PO DAILY PRN PRN Reason: Anxiety Last Admin: 01/07/22 04:39 Dose: 0.5 mg Documented by: BUFFY Morphine Sulfate (Morphine Sulfate 4 Mg/Ml Cartridge) 4 mg IVPUSH Q4H PRN; Protocol PRN Reason: Pain, Severe (Pain Scale 7-10) Last Admin: 01/08/22 08:35 Dose: 4 mg Documented by: JELANI Nifedipine (Nifedipine Er 60 Mg Tab.Er.24) 120 mg PO DAILY [facility]; Protocol Last Admin: 01/08/22 08:36 Dose: 120 mg Documented by: JELANI Omeprazole (Omeprazole 20 Mg Capsule.Dr) 20 mg PO DAILY@0630 [facility] Last Admin: 01/08/22 05:01 Dose: 20 mg Documented by: ROBIN Ondansetron HCl (Ondansetron Hcl 4 Mg/2 Ml Vial) 4 mg IVPUSH Q8H PRN PRN Reason: Nausea and Vomiting Last Admin: 01/03/22 23:33 Dose: 4 mg Documented by: MANFRED Ondansetron HCl (Ondansetron Hcl 4 Mg/2 Ml Vial) 4 mg IVPUSH ONCE PRN PRN Reason: Nausea and Vomiting Ondansetron HCl (Ondansetron Hcl 4 Mg/2 Ml Vial) 4 mg IVPUSH ONCE PRN PRN Reason: Nausea and Vomiting Oxycodone HCl (Oxycodone Hcl Immed Release 5 Mg Tablet) 10 mg PO Q4H PRN PRN Reason: Pain, Severe (Pain Scale 7-10) Pharmacy Consult (Consult Rx Perform Med Rec) 1 each MISCELLANE ONCE PRN PRN Reason: Consult order Psyllium Hydrophilic Mucilloid (Psyllium Seed 3.4 Gm Powd.Pack) 3.4 gm PO BEDTIME PRN PRN Reason: Constipation Sodium Chloride (0.9 % Sodium Chloride Flush 3 Ml Syringe) 3 ml IVFLUSH QSHIFT [facility] Last Admin: 01/08/22 08:35 Dose: Not Given Documented by: JELANI Non-Admin Reason: IV Running Labs CBC & Chem 7: 01/08/22 06:22 01/08/22 06:22 Labs: Laboratory Results - last 24 hr 01/07/22 01/08/22 01/08/22 15:02 06:22 06:22 MCV 92.8 MCH 29.7 MCHC 32.0 RDW 12.9 Plt Count 305 D MPV 9.2 L Immature Gran % (Auto) 0.3 Neut % (Auto) 81.3 H Lymph % (Auto) 10.0 L O'Brien % (Auto) 8.2 Eos % (Auto) 0.1 Baso % (Auto) 0.1 Lymph # (Auto) 1.0 L O'Brien # (Auto) 0.8 Eos # (Auto) 0.0 Baso # (Auto) 0.0 Abs Immat Gran (auto) 0.03 Absolute Neuts (auto) 7.7 Absolute Nucleated RBC 0.000 Nucleated RBC % (auto) 0.0 Anion Gap 14 Estim Creat Clear Calc 47.0 Estimated GFR > 60 Random Glucose 76 Calcium 7.5 L D Total Bilirubin 0.6 Direct Bilirubin 0.3 AST 31 ALT 49 H Alkaline Phosphatase 155 H D Total Protein 4.8 L Albumin 2.7 L Blood Type O Positive Antibody Screen NEGATIVE Microbiology Microbiology Results: Microbiology 01/02/22 20:02 Blood Culture - Final Blood - Venous No growth after 5 days. 01/02/22 20:03 Blood Culture - Final Blood - Venous No growth after 5 days. Procedures Date of Service Date of Service: 01/08/22 Progress Note: A&P Assessment and plan (1) Acute gallstone pancreatitis: Status: Acute (2) Acute cholecystitis: Status: Acute (3) S/P laparoscopic cholecystectomy: Status: Acute Plan 86 year old female admitted with choledocolithiasis. S/p ERCP with sphincterotomy and removal of CBD stones. Now POD #1 s/p lap CCY. GB purulent intraop. Doing fairly well post op, sore. VSS. Abd with appropriate post op tenderness, dressings c/d/i. MARÍA with nonbilious output. Will advance diet. Repeat labs tomorrow- slight drift in H/H this am. LFTs continue to downtrend. Possible discharge to home tomorrow if labs remain stable, tolerating diet. Will remove MARÍA drain prior. Fall Risk Details Current Medications: Current Medications Acetaminophen (Acetaminophen Supp 650 Mg Supp.Rect) 650 mg RI Q6H PRN PRN Reason: Pain, Mild (Pain Scale 1-3) Acetaminophen (Acetaminophen 325 Mg Tablet) 650 mg PO Q6H PRN PRN Reason: Pain, Mild (Pain Scale 1-3) Last Admin: 01/08/22 05:06 Dose: 650 mg Documented by: Atorvastatin Calcium (Atorvastatin Calcium 10 Mg Tablet) 10 mg PO BEDTIME [facility] Last Admin: 01/07/22 21:27 Dose: 10 mg Documented by: Carvedilol (Carvedilol 6.25 Mg Tablet) 6.25 mg PO BID [facility]; Protocol Last Admin: 01/08/22 08:36 Dose: 6.25 mg Documented by: Fentanyl (Fentanyl Citrate/Pf 100 Mcg/2 Ml Vial) 25 mcg IVPUSH Q5M PRN; Pro tocol PRN Reason: Pain, Moderate (Pain Scale 4-6 Last Admin: 01/07/22 13:33 Dose: 12.5 mcg Documented by: Hydrochlorothiazide (Hydrochlorothiazide 12.5 Mg Tablet) 12.5 mg PO DAILY [facility] Last Admin: 01/08/22 08:35 Dose: 12.5 mg Documented by: Metronidazole (Flagyl) 500 mg in 100 mls @ 100 mls/hr IV Q8H [facility] Last Infusion: 01/08/22 06:19 Dose: Infused Documented by: Ceftriaxone Sodium 1 gm/ (Sodium Chloride) 50 mls @ 100 mls/hr IV Q24H [facility] Last Infusion: 01/07/22 21:56 Dose: Infused Documented by: Sodium Chloride (Ns) 1,000 mls @ 75 mls/hr IVCONT .[id number] [facility] Last Admin: 01/08/22 05:12 Dose: 75 mls/hr Documented by: Lorazepam (Lorazepam 0.5 Mg Tablet) 0.5 mg PO DAILY PRN PRN Reason: Anxiety Last Admin: 01/07/22 04:39 Dose: 0.5 mg Documented by: Morphine Sulfate (Morphine Sulfate 4 Mg/Ml Cartridge) 4 mg IVPUSH Q4H PRN; Protocol PRN Reason: Pain, Severe (Pain Scale 7-10) Last Admin: 01/08/22 08:35 Dose: 4 mg Documented by: Nifedipine (Nifedipine Er 60 Mg Tab.Er.24) 120 mg PO DAILY [facility]; Protocol Last Admin: 01/08/22 08:36 Dose: 120 mg Documented by: Omeprazole (Omeprazole 20 Mg Capsule.Dr) 20 mg PO DAILY@0630 [facility] Last Admin: 01/08/22 05:01 Dose: 20 mg Documented by: Ondansetron HCl (Ondansetron Hcl 4 Mg/2 Ml Vial) 4 mg IVPUSH Q8H PRN PRN Reason: Nausea and Vomiting Last Admin: 01/03/22 23:33 Dose: 4 mg Documented by: Ondansetron HCl (Ondansetron Hcl 4 Mg/2 Ml Vial) 4 mg IVPUSH ONCE PRN PRN Reason: Nausea and Vomiting Ondansetron HCl (Ondansetron Hcl 4 Mg/2 Ml Vial) 4 mg IVPUSH ONCE PRN PRN Reason: Nausea and Vomiting Oxycodone HCl (Oxycodone Hcl Immed Release 5 Mg Tablet) 10 mg PO Q4H PRN PRN Reason: Pain, Severe (Pain Scale 7-10) Pharmacy Consult (Consult Rx Perform Med Rec) 1 each MISCELLANE ONCE PRN PRN Reason: Consult order Psyllium Hydrophilic Mucilloid (Psyllium Seed 3.4 Gm Powd.Pack) 3.4 gm PO BEDTIME PRN PRN Reason: Constipation Sodium Chloride (0.9 % Sodium Chloride Flush 3 Ml Syringe) 3 ml IVFLUSH QSHIFT [facility] Last Admin: 01/08/22 08:35 Dose: Not Given Documented by: Time Spent With Patient Time: Total time spent is greater than 50% in coordination of care (as documented) at patient's floor/unit and/or counseling patient: Quality Stroke Does the patient have a stroke diagnosis?: No VTE Prior VTE?: No VTE Risk Level:: Medical - moderate - high VTE Device Contraindication: N/A - Device Ordered VTE Drug Contraindication: Treatment Not Indicated
--- NOTE | 2022-01-08 12:04 | HO.POSTANES ---
Post Anesthesia Evaluation Post Anesthesia Evaluation Vital Signs: Vital Signs Temp Pulse Resp BP Pulse Ox 01/08/22 11:20 93 01/08/22 10:57 98.3 F 71 18 140/70 H 93 01/08/22 07:27 97.9 F 72 17 145/66 H 93 01/08/22 03:25 97.7 F 84 18 156/89 H 97 Anesthesia: General Endotracheal-GETA Mental Status: Awake Pain Control: Satisfactory Nausea/Vomiting: None Hydration: Adequate Anesthesia-Related Issues: No Anes. Related Issues
--- NOTE | 2022-01-08 13:32 | HO.PM.IMPN ---
Subjective Subjective Date of Service: 01/08/22 Interval History: abd pain Review of Systems abdominal pain improved significantly,not nauseated Denies any fever or chills or cough or fevers Physical Exam Vital Signs: Vital Signs: Last Vital Signs Temp 98.3 F 01/08/22 10:57 Pulse 71 01/08/22 10:57 Resp 18 01/08/22 10:57 BP 140/70 H 01/08/22 10:57 Pulse Ox 93 01/08/22 11:20 BMI result Body Mass Index 28.9 Appearance: Alert.? Oriented X3.? not in distress.? cvs: rrr, [id number] , no murmur res: clear to auscultation ,no rhonchii or wheezing abd: no rebound or guarding ,ruq pain improved significantly, bs present. has sathya drian-with serosanguineous drainage ext pulses present , no cyanosis neuro: axo3 , nonfocal. Objective Data Active Medications Acetaminophen (Acetaminophen Supp 650 Mg Supp.Rect) 650 mg [place] Q6H PRN PRN Reason: Pain, Mild (Pain Scale 1-3) Acetaminophen (Acetaminophen 325 Mg Tablet) 650 mg PO Q6H PRN PRN Reason: Pain, Mild (Pain Scale 1-3) Last Admin: 01/08/22 05:06 Dose: 650 mg Documented by: ROBIN Atorvastatin Calcium (Atorvastatin Calcium 10 Mg Tablet) 10 mg PO BEDTIME [facility] Last Admin: 01/07/22 21:27 Dose: 10 mg Documented by: JAE Carvedilol (Carvedilol 6.25 Mg Tablet) 6.25 mg PO BID [facility]; Protocol Last Admin: 01/08/22 08:36 Dose: 6.25 mg Documented by: JELANI Fentanyl (Fentanyl Citrate/Pf 100 Mcg/2 Ml Vial) 25 mcg IVPUSH Q5M PRN; Protocol PRN Reason: Pain, Moderate (Pain Scale 4-6 Last Admin: 01/07/22 13:33 Dose: 12.5 mcg Documented by: DANY Hydrochlorothiazide (Hydrochlorothiazide 12.5 Mg Tablet) 12.5 mg PO DAILY [facility] Last Admin: 01/08/22 08:35 Dose: 12.5 mg Documented by: JELANI Metronidazole (Flagyl) 500 mg in 100 mls @ 100 mls/hr IV Q8H [facility] Last Infusion: 01/08/22 06:19 Dose: 0 mls/hr Documented by: ROBIN Ceftriaxone Sodium 1 gm/ (Sodium Chloride) 50 mls @ 100 mls/hr IV Q24H [facility] Last Infusion: 01/07/22 21:56 Dose: 0 mls/hr Documented by: JAE Sodium Chloride (Ns) 1,000 mls @ 75 mls/hr IVCONT .[id number] [facility] Last Admin: 01/08/22 05:12 Dose: 75 mls/hr Documented by: ROBIN Lorazepam (Lorazepam 0.5 Mg Tablet) 0.5 mg PO DAILY PRN PRN Reason: Anxiety Last Admin: 01/07/22 04:39 Dose: 0.5 mg Documented by: BUFFY Morphine Sulfate (Morphine Sulfate 4 Mg/Ml Cartridge) 4 mg IVPUSH Q4H PRN; Protocol PRN Reason: Pain, Severe (Pain Scale 7-10) Last Admin: 01/08/22 08:35 Dose: 4 mg Documented by: JELANI Nifedipine (Nifedipine Er 60 Mg Tab.Er.24) 120 mg PO DAILY [facility]; Protocol Last Admin: 01/08/22 08:36 Dose: 120 mg Documented by: JELANI Omeprazole (Omeprazole 20 Mg Capsule.Dr) 20 mg PO DAILY@0630 [facility] Last Admin: 01/08/22 05:01 Dose: 20 mg Documented by: ROBIN Ondansetron HCl (Ondansetron Hcl 4 Mg/2 Ml Vial) 4 mg IVPUSH Q8H PRN PRN Reason: Nausea and Vomiting Last Admin: 01/03/22 23:33 Dose: 4 mg Documented by: MANFRED Ondansetron HCl (Ondansetron Hcl 4 Mg/2 Ml Vial) 4 mg IVPUSH ONCE PRN PRN Reason: Nausea and Vomiting Ondansetron HCl (Ondansetron Hcl 4 Mg/2 Ml Vial) 4 mg IVPUSH ONCE PRN PRN Reason: Nausea and Vomiting Oxycodone HCl (Oxycodone Hcl Immed Release 5 Mg Tablet) 10 mg PO Q4H PRN PRN Reason: Pain, Severe (Pain Scale 7-10) Pharmacy Consult (Consult Rx Perform Med Rec) 1 each MISCELLANE ONCE PRN PRN Reason: Consult order Psyllium Hydrophilic Mucilloid (Psyllium Seed 3.4 Gm Powd.Pack) 3.4 gm PO BEDTIME PRN PRN Reason: Constipation Sodium Chloride (0.9 % Sodium Chloride Flush 3 Ml Syringe) 3 ml IVFLUSH QSHIFT [facility] Last Admin: 01/08/22 08:35 Dose: Not Given Documented by: JELANI Non-Admin Reason: IV Running Labs CBC & Chem 7: 01/08/22 06:22 01/08/22 06:22 Labs: Laboratory Results - last 24 hr 01/07/22 01/08/22 01/08/22 15:02 06:22 06:22 MCV 92.8 MCH 29.7 MCHC 32.0 RDW 12.9 Plt Count 305 D MPV 9.2 L Immature Gran % (Auto) 0.3 Neut % (Auto) 81.3 H Lymph % (Auto) 10.0 L Mckinley % (Auto) 8.2 Eos % (Auto) 0.1 Baso % (Auto) 0.1 Lymph # (Auto) 1.0 L Mckinley # (Auto) 0.8 Eos # (Auto) 0.0 Baso # (Auto) 0.0 Abs Immat Gran (auto) 0.03 Absolute Neuts (auto) 7.7 Absolute Nucleated RBC 0.000 Nucleated RBC % (auto) 0.0 Anion Gap 14 Estim Creat Clear Calc 47.0 Estimated GFR > 60 Random Glucose 76 Calcium 7.5 L D Total Bilirubin 0.6 Direct Bilirubin 0.3 AST 31 ALT 49 H Alkaline Phosphatase 155 H D Total Protein 4.8 L Albumin 2.7 L Blood Type O Positive Antibody Screen NEGATIVE Microbiology Microbiology Results: Microbiology 01/02/22 20:02 Blood Culture - Final Blood - Venous No growth after 5 days. 01/02/22 20:03 Blood Culture - Final Blood - Venous No growth after 5 days. Assessment and Plan (1) S/P laparoscopic cholecystectomy: Status: Acute (2) Acute cholecystitis: Status: Acute (3) Anemia: Status: Acute Plan 86-year-old female past medical history hypertension hyperlipidemia presents to the hospital with complaints of epigastric pain found to have acute pancreatitis 1.?acute gallstone pancreatitis - patient presents with epigastric abdominal pain found to have significant elevation in lipase - As well as CT abdominal finding of cholelithiasis - patient will be treated with aggressive IV fluid,pain meds,IV antibiotics given the CT findings of dilated bile duct Gi recomended mrcp and general surgery recomended -s/p ercp01/04 - sphincterotomy was performed to 12 mm and a 12 mm extraction balloon was sweeped down the CBD multiple times, seems better afterwards s/p cholecystectomy , still driangage significant through Sathya drain. postop anemia -acute bloodloss possible related to procedure ,h/h trending slightly down , type and cross complated yesterday. will check h/h in evening seen by surgery-moniter h/h an d sathya drain. 2.?hypertension - stable - will resume her medications 3.?hyperlipidemia - stable - continue home meds DVT prophylaxis:? SCDs need for inapetient: s/p lap virgen -sathya draingage still drainin sigficant,anemia-moniter h/h Quality Stroke Does the patient have a stroke diagnosis?: No VTE Prior VTE?: No VTE Risk Level:: Medical - moderate - high VTE Device Contraindication: N/A - Device Ordered VTE Drug Contraindication: Treatment Not Indicated
[2022-01-08 19:15] LABS: Hematocrit 27.8 % (37.0-47.0); Hemoglobin 9.4 g/dl (12.0-16.0)
[2022-01-08] MEDS: cefTRIAXone sodium 1 GM in 0.9 % Sodium Chloride 50 ML IV (21:03)
[2022-01-08] MEDS: Atorvastatin Calcium 10 MG TABLET PO (21:04)
[2022-01-09] VITALS (7 sets, daily range): BP systolic 126–149; BP diastolic 60–76; PULSE 70–89; RESP 14–19; TEMP 36.2–37.1; O2SAT 91–96
[2022-01-09] MEDS: metroNIDAZOLE/NS 500 MG/100 ML PIGGYBACK 100 MG IV ×2 (04:47→13:50)
[2022-01-09] MEDS: Omeprazole 20 MG CAPSULE.DR PO (05:42)
[2022-01-09] MEDS: Acetaminophen 325 MG TABLET 650 MG PO ×2 (05:42→14:57)
[2022-01-09 06:17] LABS: Hematocrit 28.4 % (37.0-47.0); Hemoglobin 9.3 g/dl (12.0-16.0); Mean Corpuscular HGB Conc 32.7 g/dl (31.0-35.0); Mean Corpuscular Hemoglobin 30.5 pg (27.0-33.0); Mean Corpuscular Volume 93.1 fL (80.0-98.0); Mean Platelet Volume 9.2 fL (9.4-12.3); Platelet Count 336 X10*3/uL (160-400); Red Blood Count 3.05 X10*6/uL (4.20-5.50); Red Cell Distribution Width 12.9 % (11.0-16.0); White Blood Count 10.5 X10*3/uL (4.8-10.8)
[2022-01-09 06:33] LABS: Anion Gap 12 (12-20); Blood Urea Nitrogen 12 mg/dL (9-16); Calcium 7.9 mg/dL (8.4-10.2); Carbon Dioxide 28 mmol/L (22-29); Chloride 106 mmol/L (96-108); Creatinine Clr Calc Pharmacy 48.2; Estimated Glomerular Filt Rate > 60; Glucose Random 91 mg/dL (60-115); Potassium 3.5 mmol/L (3.3-5.1); Sodium 142 mmol/L (135-145)
--- NOTE | 2022-01-09 07:52 | PM.PNGS ---
Subjective Subjective Date of Service: 01/09/22 Patient reports: feels better Interval history: Reports decreased abdominal pain this morning, feeling much improved from yesterday. Denies nausea or vomiting Physical Exam Vital Signs: Vital Signs: Last Vital Signs Temp 98.3 F 01/09/22 03:49 Pulse 89 01/09/22 03:49 Resp 18 01/09/22 03:49 BP 138/70 01/09/22 03:49 Pulse Ox 96 01/09/22 03:49 BMI result Body Mass Index 28.9 Const: General: comfortable and no acute distress Nutritional Appearance: well nourished Orientation/consciousness: patient oriented x3 Limitations: no limitations Eyes: Corneas: corneas normal EOM: EOMs intact bilaterally Resp: Other: on nasal O2, no respiratory distress GI: Other: incisions clean and intact Palpation (GI): Soft to palpation, nontender, no guarding and not rigid Skin: Other: warm, dry, no rash Neuro: General: patient oriented x3 Extrem: General: No edema Objective Data Active Medications Acetaminophen (Acetaminophen Supp 650 Mg Supp.Rect) [address] Q6H PRN PRN Reason: Pain, Mild (Pain Scale 1-3) Acetaminophen (Acetaminophen 325 Mg Tablet) 650 mg PO Q6H PRN PRN Reason: Pain, Mild (Pain Scale 1-3) Last Admin: 01/09/22 05:42 Dose: 650 mg Documented by: ROBIN Atorvastatin Calcium (Atorvastatin Calcium 10 Mg Tablet) 10 mg PO BEDTIME [facility] Last Admin: 01/08/22 21:04 Dose: 10 mg Documented by: ROBIN Carvedilol (Carvedilol 6.25 Mg Tablet) 6.25 mg PO BID [facility]; Protocol Last Admin: 01/08/22 21:04 Dose: 6.25 mg Documented by: ROBIN Fentanyl (Fentanyl Citrate/Pf 100 Mcg/2 Ml Vial) 25 mcg IVPUSH Q5M PRN; Protocol PRN Reason: Pain, Moderate (Pain Scale 4-6 Last Admin: 01/07/22 13:33 Dose: 12.5 mcg Documented by: DANY Hydrochlorothiazide (Hydrochlorothiazide 12.5 Mg Tablet) 12.5 mg PO DAILY [facility] Last Admin: 01/08/22 08:35 Dose: 12.5 mg Documented by: LYSSamantha Metronidazole (Flagyl) 500 mg in 100 mls @ 100 mls/hr IV Q8H [facility] Last Infusion: 01/09/22 07:20 Dose: 0 mls/hr Documented by: MARIAMA Ceftriaxone Sodium 1 gm/ (Sodium Chloride) 50 mls @ 100 mls/hr IV Q24H [facility] Last Infusion: 01/08/22 21:47 Dose: 0 mls/hr Documented by: ROBIN Lorazepam (Lorazepam 0.5 Mg Tablet) 0.5 mg PO DAILY PRN PRN Reason: Anxiety Last Admin: 01/07/22 04:39 Dose: 0.5 mg Documented by: BUFFY Morphine Sulfate (Morphine Sulfate 4 Mg/Ml Cartridge) 4 mg IVPUSH Q4H PRN; Protocol PRN Reason: Pain, Severe (Pain Scale 7-10) Last Admin: 01/08/22 23:20 Dose: 4 mg Documented by: ROBIN Nifedipine (Nifedipine Er 60 Mg Tab.Er.24) 120 mg PO DAILY [facility]; Protocol Last Admin: 01/08/22 08:36 Dose: 120 mg Documented by: JELANI Omeprazole (Omeprazole 20 Mg Capsule.Dr) 20 mg PO DAILY@0630 [facility] Last Admin: 01/09/22 05:42 Dose: 20 mg Documented by: ROBIN Ondansetron HCl (Ondansetron Hcl 4 Mg/2 Ml Vial) 4 mg IVPUSH Q8H PRN PRN Reason: Nausea and Vomiting Last Admin: 01/03/22 23:33 Dose: 4 mg Documented by: MANFRED Ondansetron HCl (Ondansetron Hcl 4 Mg/2 Ml Vial) 4 mg IVPUSH ONCE PRN PRN Reason: Nausea and Vomiting Ondansetron HCl (Ondansetron Hcl 4 Mg/2 Ml Vial) 4 mg IVPUSH ONCE PRN PRN Reason: Nausea and Vomiting Oxycodone HCl (Oxycodone Hcl Immed Release 5 Mg Tablet) 10 mg PO Q4H PRN PRN Reason: Pain, Severe (Pain Scale 7-10) Pharmacy Consult (Consult Rx Perform Med Rec) 1 each MISCELLANE ONCE PRN PRN Reason: Consult order Psyllium Hydrophilic Mucilloid (Psyllium Seed 3.4 Gm Powd.Pack) 3.4 gm PO BEDTIME PRN PRN Reason: Constipation Sodium Chloride (0.9 % Sodium Chloride Flush 3 Ml Syringe) 3 ml IVFLUSH QSHIFT [facility] Last Admin: 01/08/22 21:03 Dose: Not Given Documented by: ROBIN Non-Admin Reason: IV Running Labs CBC & Chem 7: 01/09/22 06:03 01/09/22 06:03 Labs: Laboratory Results - last 24 hr 01/09/22 01/09/22 06:03 06:03 MCV 93.1 MCH 30.5 MCHC 32.7 RDW 12.9 Plt Count 336 MPV 9.2 L Absolute Nucleated RBC 0.000 Nucleated RBC % (auto) 0.0 Anion Gap 12 Estim Creat Clear Calc 48.2 Estimated GFR > 60 Random Glucose 91 Calcium 7.9 L Procedures Date of Service Date of Service: 01/09/22 Progress Note: A&P Assessment and plan (1) Anemia: Status: Acute (2) S/P laparoscopic cholecystectomy: Status: Acute (3) Acute gallstone pancreatitis: Status: Acute (4) Acute cholecystitis: Status: Acute Plan 86 year old female admitted with choledocolithiasis. S/p ERCP with sphincterotomy and removal of CBD stones. Now POD #2 s/p lap CCY. GB purulent intraop. Patient much improved this morning with decreased abdominal pain. Wounds are clean and intact. MARÍA with serous discharge, no bile. Labs with stable H/H. Will need continued PT today. Plan for discharge to home with VNA, possibly tomorrow. Patient's son will be home for the next week to help her and her ill . Fall Risk Details Current Medications: Current Medications Acetaminophen (Acetaminophen Supp 650 Mg Supp.Rect) [address] Q6H PRN PRN Reason: Pain, Mild (Pain Scale 1-3) Acetaminophen (Acetaminophen 325 Mg Tablet) 650 mg PO Q6H PRN PRN Reason: Pain, Mild (Pain Scale 1-3) Last Admin: 01/09/22 05:42 Dose: 650 mg Documented by: Atorvastatin Calcium (Atorvastatin Calcium 10 Mg Tablet) 10 mg PO BEDTIME [facility] Last Admin: 01/08/22 21:04 Dose: 10 mg Documented by: Carvedilol (Carvedilol 6.25 Mg Tablet) 6.25 mg PO BID [facility]; Protocol Last Admin: 01/08/22 21:04 Dose: 6.25 mg Documented by: Fentanyl (Fentanyl Citrate/Pf 100 Mcg/2 Ml Vial) 25 mcg IVPUSH Q5M PRN; Protocol PRN Reason: Pain, Moderate (Pain Scale 4-6 Last Admin: 01/07/22 13:33 Dose: 12.5 mcg Documented by: Hydrochlorothiazide (Hydrochlorothiazide 12.5 Mg Tablet) 12.5 mg PO DAILY [facility] Last Admin: 01/08/22 08:35 Dose: 12.5 mg Documented by: Metronidazole (Flagyl) 500 mg in 100 mls @ 100 mls/hr IV Q8H [facility] Last Infusion: 01/09/22 07:20 Dose: Infused Documented by: Ceftriaxone Sodium 1 gm/ (Sodium Chloride) 50 mls @ 100 mls/hr IV Q24H [facility] Last Infusion: 01/08/22 21:47 Dose: Infused Documented by: Lorazepam (Lorazepam 0.5 Mg Tablet) 0.5 mg PO DAILY PRN PRN Reason: Anxiety Last Admin: 01/07/22 04:39 Dose: 0.5 mg Documented by: Morphine Sulfate (Morphine Sulfate 4 Mg/Ml Cartridge) 4 mg IVPUSH Q4H PRN; Protocol PRN Reason: Pain, Severe (Pain Scale 7-10) Last Admin: 01/08/22 23:20 Dose: 4 mg Documented by: Nifedipine (Nifedipine Er 60 Mg Tab.Er.24) 120 mg PO DAILY [facility]; Protocol Last Admin: 01/08/22 08:36 Dose: 120 mg Documented by: Omeprazole (Omeprazole 20 Mg Capsule.Dr) 20 mg PO DAILY@0630 [facility] Last Admin: 01/09/22 05:42 Dose: 20 mg Documented by: Ondansetron HCl (Ondansetron Hcl 4 Mg/2 Ml Vial) 4 mg IVPUSH Q8H PRN PRN Reason: Nausea and Vomiting Last Admin: 01/03/22 23:33 Dose: 4 mg Documented by: Ondansetron HCl (Ondansetron Hcl 4 Mg/2 Ml Vial) 4 mg IVPUSH ONCE PRN PRN Reason: Nausea and Vomiting Ondansetron HCl (Ondansetron Hcl 4 Mg/2 Ml Vial) 4 mg IVPUSH ONCE PRN PRN Reason: Nausea and Vomiting Oxycodone HCl (Oxycodone Hcl Immed Release 5 Mg Tablet) 10 mg PO Q4H PRN PRN Reason: Pain, Severe (Pain Scale 7-10) Pharmacy Consult (Consult Rx Perform Med Rec) 1 each MISCELLANE ONCE PRN PRN Reason: Consult order Psyllium Hydrophilic Mucilloid (Psyllium Seed 3.4 Gm Powd.Pack) 3.4 gm PO BEDTIME PRN PRN Reason: Constipation Sodium Chloride (0.9 % Sodium Chloride Flush 3 Ml Syringe) [facility] Last Admin: 01/08/22 21:03 Dose: Not Given Documented by: Time Spent With Patient Time: Total time spent is greater than 50% in coordination of care (as documented) at patient's floor/unit and/or counseling patient: Quality Stroke Does the patient have a stroke diagnosis?: No VTE Prior VTE?: No VTE Risk Level:: Medical - moderate - high VTE Device Contraindication: N/A - Device Ordered VTE Drug Contraindication: Treatment Not Indicated
[2022-01-09] MEDS: hydroCHLOROthiazide 12.5 MG TABLET PO (09:40)
[2022-01-09] MEDS: carvediloL 6.25 MG TABLET PO ×2 (09:40→20:26)
[2022-01-09] MEDS: NIFEdipine ER 60 MG TAB.ER.24 120 MG PO (09:40)
--- NOTE | 2022-01-09 13:01 | P.DS_ITS ---
DS: Providers Provider Date of Service: 01/09/22 Date of admission: 01/02/22 21:09 Primary care physician: Devin Hall MD Consults: 01/02/22 21:00 Consult to Gastroenterology Routine Consulting Provider: Hipolito De La Vega Reason for consultation: acute gallstone pancreatitis Has provider been notified: Yes Consult to General Surgery Routine Consulting Provider: Kathrine Nobles Reason for consultation: gallstone pancreatitis Has provider been notified: Yes DS: Diagnosis Discharge Diagnosis (1) Anemia: (2) S/P laparoscopic cholecystectomy: Status: Acute (3) Acute gallstone pancreatitis: Status: Resolved (4) Acute cholecystitis: Status: Resolved DS: Summary Hospital Course Hospital Course: Chief Complaint: abd pain This is an 86-year-old female with past medical history of HLD, HTN, and history of aortic stenosis who presents to the hospital with complaints of epigastric abdominal pain.? Patient reports that the pain started on , localized to the epigastric region, radiating to the back, she took Tylenol and some role laid with some relief over the weekend, but then her pain returned this morning.? Patient reports the pain to be 10/10, was again epigastric radiating to the back, not relieved by Tylenol will this time, no exacerbating factors, not associated with eating food.? She had nausea with no vomiting, no diarrhea constipation,.? Patient denies any fever chills, no urinary symptoms and no lower extremity edema.? She has no headache or change in vision, no numbness or tingling.? On arrival to the ED patient hemodynamically stable with no significant abnormal vitals Labs are significant for WBC count of 7.9, hemoglobin of 10.9, hematocrit 31.9, BUN of 45, creatinine of 1.59 with a baseline of around 1.06, bilirubin of 1.9, AST of 336, ALT of 267, alk-phos of 449, lipase 4906 ?UA positive for leukocyte Estrace and WBC.? COVID-19 and influenza negative, Abdominal pelvic CT shows prominent intrahepatic and extrahepatic biliary duct dilatation down to the ampulla, fine gravel-like gallstones independent gallbladder, no pericholecystic inflammatory changes. Abdominal ultrasound shows gallstones are once again demonstrated with dilated common bile duct. GI as well as general surgery notified, patient started on IV antibiotics and will be admitted for further management Hospital course: Patient presented with abdominal pain and found to have gallstone pancreatitis, she underwent ERCP with sphynterectoy and stone retraction and ultimately underwent cholecystectomy by Dr. Berry and seem to be doing better post operatively, her diet has been advanced to regular diet. MARÍA drain is being removed before discharged 2.?hypertension - stable - will resume her medications 3.?hyperlipidemia - stable - continue home meds Time Spent with Patient Time attestation: Total time spent providing and/or coordinating discharge services: Discharge coordination time: Greater than 30 minutes Quality: Safe Use of Opioids Does Pt have an Active Cancer Diagnosis on the Problem List?: No Quality: Stroke Does the patient have a stroke diagnosis?: No Physical Exam Vital Signs: Vital Signs: Last Vital Signs Temp 97.2 F 01/09/22 12:00 Pulse 78 01/09/22 12:00 Resp 19 01/09/22 12:00 BP 126/76 01/09/22 12:00 Pulse Ox 95 01/09/22 12:00 BMI result Body Mass Index 28.9 Const: Other: General: AO X 3, no acute distress Resp: CTA bilateral CVS: S1,S2,RRR GI: +BS, NT, no distention Skin: No rash Neuro: motor grossly intact Psych: appropriate affect DS: Data Data Completed and Pending Completed studies during hospitalization [Text1]: Pending at discharge 01/07/22 12:24 Surgical [PTH] Routine Labs on day of discharge: Laboratory Results - last 24 hr 01/08/22 01/09/22 01/09/22 19:02 06:03 06:03 WBC 10.5 RBC 3.05 L Hgb 9.4 L 9.3 L Hct 27.8 L 28.4 L MCV 93.1 MCH 30.5 MCHC 32.7 RDW 12.9 Plt Count 336 MPV 9.2 L Absolute Nucleated RBC 0.000 Nucleated RBC % (auto) 0.0 Sodium 142 Potassium 3.5 Chloride 106 Carbon Dioxide 28 Anion Gap 12 BUN 12 Creatinine 0.76 Estim Creat Clear Calc 48.2 Estimated GFR > 60 Random Glucose 91 Calcium 7.9 L Discharge Plan Discharge Anticipated Discharge Date/Time: 01/09/22 13:12 Patient Disposition: Xfer SNF Discharge Diagnosis: Acute cholecystitis, gallstone pancreatitis Referrals: [facility] [Outside] - 1 Week Devin Hall MD [Primary Care Provider] - 1 Week Ru Berry MD [Physician] - 1 Week Discharge Medications: Continued simvastatin 20 mg tablet 20 mg PO BEDTIME Qty: 90 8RF nifedipine 90 mg tablet extended release 24hr 90 mg PO DAILY 0RF pantoprazole 40 mg tablet,delayed release (DR/EC) 40 mg PO DAILY@0630 0RF aspirin 81 mg Tablet,Chewable 81 mg PO BEDTIME 0RF psyllium husk [Metamucil] 0.52 gram Capsule 1.04 g PO BEDTIME PRN (Reason: Constipation) 0RF lorazepam 0.5 mg Tablet 0.5 mg PO DAILY PRN (Reason: Anxiety) 0RF carvedilol 6.25 mg tablet 1 tab PO BID 0RF ergocalciferol (vitamin D2) 1,250 mcg (50,000 unit) capsule 1,250 mcg PO Q2W 0RF chlorthalidone 25 mg tablet 12.5 mg PO DAILY 0RF Discharge Orders: Discharge Order (Routine); Ordered 01/09/22 Ordered By: Prince Salazar Diet: low fat, low cholesterol and low salt diet Activity on Discharge: No heavy lifting Stand Alone Forms: Patient Portal Discharge page Activity Restrictions/Additional Instructions: If the incision area is tender, you may apply an ice pack for short intervals (No more than 20 minutes on, followed by at least 20 minutes off). Do not apply heat. Do not use creams, lotions, or topical antibiotics unless instructed to do so by your surgeon. These can cause infection or allergic reaction. Ok to shower. You have steri strips (small white cloth strips) covering your incision- these will fall off ~1 week. No heavy lifting (>10lbs) or strenuous activity! Follow up in office with Dr. Berry in 1 week. ([phone]) Call Your Doctor If: -Your temperature exceeds 101.5? F -You experience excessive pain or swelling -You have an unexpected reaction to medication -You have excessive bleeding -You experience continued vomiting/nausea -Your incision begins to separate -Your incision shows signs of infection such as increased redness, swelling, excessive pain, drainage (light blood or clear fluid is normal) or heat Care Plan Goals: Full recover from cholecystitis Health Concerns: Cholecystitis Plan of Treatment: To acute rehab and follow up with Dr. Berry Assessment: As above Discharge Date/Time: 01/09/22 20:55
--- NOTE | 2022-01-09 13:12 | P.PNIM_ITS ---
Subjective Subjective Date of Service: 01/09/22 Interval History: F/u on gallstone pancreatitis s/p cholecystectomy interval continue to improve, tolerating diet Review of Systems no abd pain no fever Physical Exam Vital Signs: Vital Signs: Last Vital Signs Temp 97.2 F 01/09/22 12:00 Pulse 78 01/09/22 12:00 Resp 19 01/09/22 12:00 BP 126/76 01/09/22 12:00 Pulse Ox 95 01/09/22 12:00 BMI result Body Mass Index 28.9 Const: Other: General: AO X 2, no acute distress Resp: CTA bilateral CVS: S1,S2,RRR GI: +BS, NT, no distention Skin: No rash Neuro: motor grossly intact Psych: appropriate affect Objective Data Active Medications Acetaminophen (Acetaminophen Supp 650 Mg Supp.Rect) 650 mg WA Q6H PRN PRN Reason: Pain, Mild (Pain Scale 1-3) Acetaminophen (Acetaminophen 325 Mg Tablet) 650 mg PO Q6H PRN PRN Reason: Pain, Mild (Pain Scale 1-3) Last Admin: 01/09/22 05:42 Dose: 650 mg Documented by: ROBIN Atorvastatin Calcium (Atorvastatin Calcium 10 Mg Tablet) 10 mg PO BEDTIME [facility] Last Admin: 01/08/22 21:04 Dose: 10 mg Documented by: ROBIN Carvedilol (Carvedilol 6.25 Mg Tablet) 6.25 mg PO BID [facility]; Protocol Last Admin: 01/09/22 09:40 Dose: 6.25 mg Documented by: MARIAMA Fentanyl (Fentanyl Citrate/Pf 100 Mcg/2 Ml Vial) 25 mcg IVPUSH Q5M PRN; Protocol PRN Reason: Pain, Moderate (Pain Scale 4-6 Last Admin: 01/07/22 13:33 Dose: 12.5 mcg Documented by: DANY Hydrochlorothiazide (Hydrochlorothiazide 12.5 Mg Tablet) 12.5 mg PO DAILY [facility] Last Admin: 01/09/22 09:40 Dose: 12.5 mg Documented by: MARIAMA Metronidazole (Flagyl) 500 mg in 100 mls @ 100 mls/hr IV Q8H [facility] Last Infusion: 01/09/22 07:20 Dose: 0 mls/hr Documented by: MARIAMA Ceftriaxone Sodium 1 gm/ (Sodium Chloride) 50 mls @ 100 mls/hr IV Q24H [facility] Last Infusion: 01/08/22 21:47 Dose: 0 mls/hr Documented by: ROBIN Lorazepam (Lorazepam 0.5 Mg Tablet) 0.5 mg PO DAILY PRN PRN Reason: Anxiety Last Admin: 01/07/22 04:39 Dose: 0.5 mg Documented by: BUFFY Morphine Sulfate (Morphine Sulfate 4 Mg/Ml Cartridge) 4 mg IVPUSH Q4H PRN; Protocol PRN Reason: Pain, Severe (Pain Scale 7-10) Last Admin: 01/08/22 23:20 Dose: 4 mg Documented by: ROBIN Nifedipine (Nifedipine Er 60 Mg Tab.Er.24) 120 mg PO DAILY [facility]; Protocol Last Admin: 01/09/22 09:40 Dose: 120 mg Documented by: MARIAMA Omeprazole (Omeprazole 20 Mg Capsule.Dr) 20 mg PO DAILY@0630 [facility] Last Admin: 01/09/22 05:42 Dose: 20 mg Documented by: ROBIN Ondansetron HCl (Ondansetron Hcl 4 Mg/2 Ml Vial) 4 mg IVPUSH Q8H PRN PRN Reason: Nausea and Vomiting Last Admin: 01/03/22 23:33 Dose: 4 mg Documented by: MANFRED Ondansetron HCl (Ondansetron Hcl 4 Mg/2 Ml Vial) 4 mg IVPUSH ONCE PRN PRN Reason: Nausea and Vomiting Ondansetron HCl (Ondansetron Hcl 4 Mg/2 Ml Vial) 4 mg IVPUSH ONCE PRN PRN Reason: Nausea and Vomiting Oxycodone HCl (Oxycodone Hcl Immed Release 5 Mg Tablet) 10 mg PO Q4H PRN PRN Reason: Pain, Severe (Pain Scale 7-10) Pharmacy Consult (Consult Rx Perform Med Rec) 1 each MISCELLANE ONCE PRN PRN Reason: Consult order Psyllium Hydrophilic Mucilloid (Psyllium Seed 3.4 Gm Powd.Pack) 3.4 gm PO BEDTIME PRN PRN Reason: Constipation Sodium Chloride (0.9 % Sodium Chloride Flush 3 Ml Syringe) 3 ml IVFLUSH QSHIFT [facility] Last Admin: 01/09/22 09:41 Dose: Not Given Documented by: MARIAMA Non-Admin Reason: IV Running Labs CBC & Chem 7: 01/09/22 06:03 01/09/22 06:03 Labs: Laboratory Results - last 24 hr 01/09/22 01/09/22 06:03 06:03 MCV 93.1 MCH 30.5 MCHC 32.7 RDW 12.9 Plt Count 336 MPV 9.2 L Absolute Nucleated RBC 0.000 Nucleated RBC % (auto) 0.0 Anion Gap 12 Estim Creat Clear Calc 48.2 Estimated GFR > 60 Random Glucose 91 Calcium 7.9 L Assessment and Plan (1) S/P laparoscopic cholecystectomy: Status: Acute (2) Acute cholecystitis: Status: Acute (3) Anemia: Status: Acute Plan 86-year-old female past medical history hypertension hyperlipidemia presents to the hospital with complaints of epigastric pain found to have acute pancreatitis a 1. acute gallstone pancreatitis, status post ERCP with sphincterotomy and stone removal. Status post cholecystectomy and doing well postoperatively. Tolerating regular diet. CELSA drain to be removed today will go to rehab after this. 2.?hypertension - stable - will resume her medications 3.?hyperlipidemia - stable - continue home meds DVT prophylaxis:? SCDs need for inapetient: s/p lap virgen -celsa draingage still drainin sigficant,anemia- moniter h/h Probable discharge today pending insurance authorization. Quality Stroke Does the patient have a stroke diagnosis?: No VTE Prior VTE?: No VTE Risk Level:: Medical - moderate - high VTE Device Contraindication: N/A - Device Ordered VTE Drug Contraindication: Treatment Not Indicated
[2022-01-09 13:28] LABS: COVID-19 Test Negative (Negative)
[2022-01-09] MEDS: 0.9 % Sodium Chloride Flush 3 ML SYRINGE IVFLUSH (14:33)
--- NOTE | 2022-01-09 16:34 | MHC.CM.PN ---
IMM 01/09/22 dc to [facility]. BLS is booked as a will call. All dc info sent to facility.
[2022-01-09] MEDS: Atorvastatin Calcium 10 MG TABLET PO (20:26)
--- NOTE | 2022-01-09 20:56 | PC.NURSE ---
Patient discharged to [facility] at 2049. Pt was A&O. Tele pack was off. IV was out.
--- NOTE | 2022-01-16 13:55 | OP_ITS ---
SURGEON: Kathrine Nobles INDICATIONS: The patient is an 86-year-old female who presented with gallstone pancreatitis, underwent ERCP and normalization of her labs, and as a result, consented out for laparoscopic cholecystectomy. PREOPERATIVE DIAGNOSIS: Gallstone pancreatitis. POSTOPERATIVE DIAGNOSIS: Gallstone pancreatitis. PROCEDURE PERFORMED: Laparoscopic cholecystectomy. ESTIMATED BLOOD LOSS: COMPLICATIONS: ANESTHESIA: General anesthesia. ASSISTANTS: SPECIMENS: FINDINGS: Acutely inflamed gallbladder with a large common bile duct and shorter cystic duct. DESCRIPTION OF PROCEDURE: Patient was brought into the operating room. Under Anesthesia guidance, was intubated. She had compression stockings placed from before and after received preoperative antibiotics. Her abdomen was prepped and draped in standard surgical fashion. An infraumbilical incision was created after numbing up the area with 0.25% Marcaine with epinephrine, and dissection was carried down to the anterior abdominal wall fascia, which was grasped with José Luis and transected. [address] Nola trochar introduced. The pneumoperitoneum was established with 15 mmHg pressure. The patient was positioned head up and left side down. Three 5 mm ports were then placed under direct visualization using the local; 1 in the epigastric area, 2 in the right upper quadrant. The gallbladder was identified and retracted superiorly and a little bit laterally. There were a lot of adhesions of the stomach, duodenum, and omentum to the base of the gallbladder, and this was gently dissected down using a laparoscopic pin and by blunt dissection. Eventually, we were able to get down and evaluate what was the gallbladder versus now moving the stomach out of the way and duodenum. OG tube had been placed, and the stomach decompressed. Once again, there were a lot of adhesions in this portal triad area. The area evaluated, was examined, and after gentle dissection, we were able to get the better view of where the inferior aspect of the gallbladder was and where it came across with the cystic duct. It was determined that the cystic duct once trached down into very distended, dilated common bile duct, went ahead and dissected off part of the common bile duct and cystic duct junction. During this process, the tissue was very oozy, and there were several areas of just oozing blood. The Surgicel was used in this area and a lot of irrigation was carried out in order to hydrodissect and also figure out what the source of this bleeding was. The little pressure eventually being stopped. Now, we will carefully started mobilizing the gallbladder little bit from the lateral aspect of this peritoneal attachment to the liver as well as medial area, and the base of the gallbladder was now identified. The cystic duct also looked distended, and this was dissected gently, and we were able to see how the cystic duct did open up onto the distended common bile duct and realized that we needed to stay high up on the gallbladder. The cystic duct, cystic artery were identified. The cystic duct was clipped 3 times down, went up, and transected. Gallstone was removed from the cystic duct. Now the cystic artery was identified after the entire dissection had been carried out and a good critical view was seen. The cystic artery was clipped and transected. Then using a hook cautery, the gallbladder was removed from the liver base. The lower tissue was irrigated and suctioned. The Surgicel removed, and there was just some minor ooze but nothing that was significant. Throughout the case, this probably lead to a 200 cc blood loss, also with taking the gallbladder off the liver where the liver bed was just very oozy. The hook cautery was used to remove it. The gallbladder was placed in an endobag and then removed from the abdominal cavity. The extensive irrigation was now carried out to ensure that any bleeding area was cauterized or got under control. There was some cautery to the liver bed, which stopped any bleeding. The whole area was suctioned and irrigated. No other areas of concern were noted in the abdomen. The drain was then left in place and brought up through the right lateral port site and secured. Pneumoperitoneum was then released, and the purse string suture at the umbilical area was approximated and then 4-0 Monocryl in an interrupted subcuticular was used to approximate the skin edges. At the end of the case, all sponge, instrument, needle counts were correct. Estimated blood loss was 200 cc. Specimen sent was the gallbladder. The patient was extubated, returned stable to the recovery room. Kathrine Nobles SR/ISHMAEL / [id number]
== END 2022-01-09 20:55 | disposition skilled nursing facility (03) | DRG 417 ==
LOC: HO.ED 20:33 → HO.EDOVER 21:17 → HO.IMC 23:17
PROVIDERS: Internal Medicine; Internal Medicine Gastroenterology; Surgery; Admitting Provider Internal Medicine; Emergency Provider Emergency Medicine Emergency Medical Services; PCP Internal Medicine; Visit Provider Internal Medicine
PROC: 0F798ZZ Dilation of Common Bile Duct, Via Natural or Artificial Opening Endoscopic (ICD-10-PCS; CPT 43260; principal; 2022-01-04 15:30)
PROC: 0FT44ZZ Resection of Gallbladder, Percutaneous Endoscopic Approach (ICD-10-PCS; CPT 47562; principal; 2022-01-07 09:10)
DX: K80.43 Calculus of bile duct with acute cholecystitis with obstruction (principal); K85.10 Biliary acute pancreatitis without necrosis or infection; I10 Essential (primary) hypertension; E78.5 Hyperlipidemia, unspecified; Z20.822 Contact with and (suspected) exposure to COVID-19; Z87.891 Personal history of nicotine dependence; Z79.82 Long term (current) use of aspirin; Z79.899 Other long term (current) drug therapy
CPT/HCPCS: 36415; 71045; 74176; 74181; 76705; 80048; 80053; 80076; 81001; 82248; 83605; 83690; 84484; 85014; 85018; 85025; 85027; 85610; 85730; 86850; 86900; 86901; 87040; 87086; 87088; 87186; 87502; 87635; 88304; 93005; 96361; 96365; 96375; 97116; 97162; 97530; 99024; 99285; 99291; J0696; J1100; J1885; J2250; J2270; J2405; J2543; J3010; Q9967

== ENCOUNTER → 2022-03-05 08:42 | Outpatient (REF) | payer MEDICARE, SELFPAY ==
--- NOTE | 2022-03-05 08:49 | CA_ITS ---
Transthoracic Echocardiogram Patient (Last, First, Middle): Nickie Contreras E Gender: Female Date of : 1935 Age: 86 Procedure Date: 03/05/2022 Procedure Type: Transthoracic Echocardiogram Location: OP Height: 152.4 cm Weight: 59.88 kg BSA: 1.56 m2 Heart Rate: 57 bpm BP: 134 / 74 mmHg Bow Maker Production: SB Referring MD: Sloane Sandra [employer] CONVEYOR OPERATOR-C Grave Digger: See Quinn MD Symptoms: I35.0 - Nonrheumatic aortic (valve) stenosis Study Quality: Adequate ECG Rhythm: Bradycardia Conclusions: - 1. Normal LV systolic function with mild LVH with impaired relaxation filling pattern and elevated filling pressures 2. Mild aortic stenosis and regurgitation 3. Trivial pericardial effusion near the left ventricle Findings Left Ventricle Normal left ventricular size and systolic function. There is mildly increased left ventricular wall thickness. The visually estimated ejection fraction is between 60-65%. Spectral Doppler is indicative of an impaired relaxation filling pattern. Elevated filling pressures. Peak GLS is -18.8%, within normal limits Right Ventricle Normal right ventricular cavity size and systolic function. Atria The left atrium is normal in size. There is lipomatous hypertrophy of the interatrial septum. There is no evidence of interatrial shunt. The right atrium is normal in size. Aortic Valve There is mild calcification of the aortic valve. There is mild thickening of the aortic valve. There is mild aortic valve stenosis. The mean gradient is 11 mmHg. The aortic valve area is 2.00 cm2. There is mild aortic valve regurgitation. Mitral Valve There is mild anterior and posterior mitral leaflet thickening. There is mild mitral annular calcification. There is trace mitral valve regurgitation. There is no mitral valve stenosis. Pulmonic Valve The pulmonic valve is likely normal. There is trace pulmonic valve regurgitation. Tricuspid Valve Likely normal tricuspid valve structure and function. Tricuspid regurgitation envelope is inadequate for calculation of right ventricular systolic pressure. Great Vessels All visible segments of the aorta are normal in size. The pulmonary artery was not well visualized. Venous The inferior vena cava is normal in size and collapses greater than 50% with inspiration. Pericardium/Pleural There is a trivial loculated pericardial effusion overlying the left ventricle. Prior Study Comparison No significant change compared to prior study dated: 02/17/2021. Measurements 2D Linear Measurements IVSd: 1.23 0.6-0.9/0.6-1.0 cm LVIDd: 4.41 3.9-5.3/4.2-5.9 cm LVIDd Index: 2.83 2.4-3.2/2.2-3.1 cm/m2 LVIDs: 3.15 2.0-3.6 cm LVPWd: 1.24 0.7-1.1 cm LA Diam: 3.60 2.7-3.8/3.0-4.0 cm LAIDs Index: 2.31 1.5-2.3 cm/m2 LV Mass: 249.49 67-162/88-224 g LV Mass Index: 159.93 43-95/49-115 g/m2 LVOT Diam: 2.20 3.0+(-)1.3 cm 2D Systolic Function EF 4C: 66.30 >55% EF 2C: 56.90 >55% EF BiP: 62.70 >55% Mitral Valve MV Pk E: 0.92 MV PK A: 1.19 MV Decel Time: 169.00 E/A: 0.80 E'Lateral: 5.98 E'Medial: 5.44 E/E' Med: 16.90 E/E' Lat: 15.40 PHT: 49.00 MVA PHT: 4.49 Decel Kingman: 5.44 Aortic Valve AoV Pk Mando: 2.34 AoV Mn Mando: 1.52 AoV VTI: 0.54 AoV Pk Grad: 22.00 Aov Mn Grad: 11.00 ELDER Cont.VTI: 2.00 AI Pk Mando: 4.67 AI VTI: 3.04 AI Kingman: 2.13 AI Alias Mando: 0.38 AI RV - PISA: 27.00 ERO - PISA: 9.00 LVOT LVOT Pk Mando: 1.33 LVOT Mn Mando: 0.83 LVOT VTI: 0.29 LVOT Pk Grad: 7.00 LVOT Mn Grad: 3.00 LVOT Diam: 2.20 LVOT Area: 3.80 Diastolic Function MV Pk E: 0.92 MV Pk A: 1.19 E/A: 0.80 E'Medial: 5.44 E/E' Med: 16.90 E' Laterial: 5.98 E/E' Lat: 15.40 Right Ventricle TAPSE (mm): 19.40 TVS' Mando: 10.00 Tricuspid Valve RA Press: 3.00 Great Vessels Aorta Sinus of Valsalva: 2.80 2.0-3.5 cm Ao Asc: 3.20 2.1-3.4 cm Pulmonary Veins Pulm Vein S/D 1.50 Pulmonary Valve PV Pk Mando: 1.28 Peak PV Grad: 7.00 Updated in Other Vendor System with Status of Final See Qiunn MD electronically signed on 03/05/2022 4:02:32 PM with status of Final
[2022-03-05 09:00] LABS: MANUAL DIFF FLAG NO
[2022-03-05 09:30] LABS: Basophils Percent Auto 0.8 % (0-2); Eosinophils Absolute Auto 0.3 X10*3/uL (0.0-0.4); Eosinophils Percent Auto 6.3 % (0-4); Hematocrit 31.8 % (37.0-47.0); Hemoglobin 10.3 g/dl (12.0-16.0); Imm Gran Abs Auto 0.01 X10*3/uL (0.00-0.03); Imm Gran Pct Auto 0.2 % (0.0-0.4); Lymphocytes Percent Auto 19.3 % (20-40); Mean Corpuscular HGB Conc 32.4 g/dl (31.0-35.0); Mean Corpuscular Hemoglobin 30.1 pg (27.0-33.0); Mean Platelet Volume 9.9 fL (9.4-12.3); Monocytes Absolute Auto 0.5 X10*3/uL (0.1-1.2); Monocytes Percent Auto 9.7 % (2-11); Neutrophils Absolute Auto 3.1 x10*3/uL (2.0-8.3); Neutrophils Percent Auto 63.7 % (45-73); Platelet Count 288 X10*3/uL (160-400); Red Blood Count 3.42 X10*6/uL (4.20-5.50); Red Cell Distribution Width 14.1 % (11.0-16.0); White Blood Count 4.9 X10*3/uL (4.8-10.8)
[2022-03-05 10:12] LABS: Alanine Aminotransferase 6 U/L (0-31); Albumin Level 3.9 g/dL (3.5-5.0); Alkaline Phosphatase 131 U/L (39-117); Anion Gap 13 (12-20); Aspartate Amino Transferase 10 U/L (5-31); Bilirubin Total 0.4 mg/dL (0.0-1.0); Blood Urea Nitrogen 20 mg/dL (9-16); Carbon Dioxide 22 mmol/L (22-29); Chloride 111 mmol/L (96-108); Cholesterol 151 mg/dL; Estimated Glomerular Filt Rate 49; Glucose Fasting 90 mg/dL (60-99); HDL Cholesterol 45 mg/dL; LDL Cholesterol Calculated 84 mg/dl; Potassium 5.2 mmol/L (3.3-5.1); Sodium 141 mmol/L (135-145); Total Protein 6.9 g/dL (6.5-8.0); Triglycerides 114 mg/dL
[2022-03-05 10:13] LABS: Thyroid Stimulating Hormone 2.44 uIU/mL (0.32-4.0)
== END ==
LOC: HO.CARD 08:42
PROVIDERS: Absent Provider Internal Medicine; PCP Internal Medicine; Visit Provider Nurse Practitioner Family
DX: Z00.00 Encounter for general adult medical examination without abnormal findings (principal); Z13.9 Encounter for screening, unspecified; Z13.0 Encounter for screening for diseases of the blood and blood-forming organs and certain disorders involving the immune mechanism; I35.0 Nonrheumatic aortic (valve) stenosis; E78.5 Hyperlipidemia, unspecified
CPT/HCPCS: 36415; 80053; 80061; 84443; 85025; 93306; 93356

== ENCOUNTER 2022-05-29 09:22 | Outpatient (REF) | payer MEDICARE, SELFPAY ==
[2022-05-29 09:39] LABS: MANUAL DIFF FLAG NO
[2022-05-29 09:54] LABS: Basophils Percent Auto 0.7 % (0-2); Eosinophils Absolute Auto 0.2 X10*3/uL (0.0-0.4); Eosinophils Percent Auto 3.7 % (0-4); Hematocrit 33.5 % (37.0-47.0); Imm Gran Abs Auto 0.02 X10*3/uL (0.00-0.03); Imm Gran Pct Auto 0.4 % (0.0-0.4); Lymphocytes Absolute Auto 1.1 X10*3/uL (1.2-4.9); Lymphocytes Percent Auto 23.1 % (20-40); Mean Corpuscular HGB Conc 32.8 g/dl (31.0-35.0); Mean Corpuscular Volume 91.3 fL (80.0-98.0); Monocytes Absolute Auto 0.5 X10*3/uL (0.1-1.2); Monocytes Percent Auto 10.3 % (2-11); Neutrophils Absolute Auto 2.8 x10*3/uL (2.0-8.3); Neutrophils Percent Auto 61.8 % (45-73); Platelet Count 224 X10*3/uL (160-400); Red Blood Count 3.67 X10*6/uL (4.20-5.50); Red Cell Distribution Width 13.1 % (11.0-16.0); White Blood Count 4.6 X10*3/uL (4.8-10.8)
[2022-05-29 10:25] LABS: Alanine Aminotransferase 10 U/L (0-31); Albumin Level 4.3 g/dL (3.5-5.0); Alkaline Phosphatase 128 U/L (39-117); Anion Gap 13 (12-20); Aspartate Amino Transferase 14 U/L (5-31); Bilirubin Total 0.3 mg/dL (0.0-1.0); Blood Urea Nitrogen 33 mg/dL (9-16); Calcium 9.7 mg/dL (8.4-10.2); Carbon Dioxide 26 mmol/L (22-29); Chloride 109 mmol/L (96-108); Cholesterol 165 mg/dL; Estimated Glomerular Filt Rate 47; Glucose Fasting 91 mg/dL (60-99); HDL Cholesterol 50 mg/dL; LDL Cholesterol Calculated 95 mg/dl; Potassium 4.9 mmol/L (3.3-5.1); Sodium 143 mmol/L (135-145); Total Protein 7.2 g/dL (6.5-8.0); Triglycerides 101 mg/dL
[2022-05-29 10:47] LABS: Thyroid Stimulating Hormone 2.45 uIU/mL (0.32-4.0)
== END 2022-05-29 09:23 | disposition home or self-care (01) ==
LOC: HO.LAB 09:22
PROVIDERS: PCP Internal Medicine; Visit Provider Internal Medicine
DX: Z00.00 Encounter for general adult medical examination without abnormal findings (principal); Z13.0 Encounter for screening for diseases of the blood and blood-forming organs and certain disorders involving the immune mechanism
CPT/HCPCS: 36415; 80053; 80061; 84443; 85025

== ENCOUNTER → 2022-06-20 13:48 | Outpatient (BNVA) | payer MEDICARE, SELFPAY | PROVIDERS: PCP Internal Medicine; Referring Provider Internal Medicine; Visit Provider Nurse Practitioner Family | DX: I21.4 Non-ST elevation (NSTEMI) myocardial infarction (principal); E78.5 Hyperlipidemia, unspecified; I10 Essential (primary) hypertension; I35.0 Nonrheumatic aortic (valve) stenosis | CPT/HCPCS: 99212 ==

== ENCOUNTER 2022-08-13 09:20 | Outpatient (REF) | payer MEDICARE, SELFPAY ==
[2022-08-13 09:47] LABS: MANUAL DIFF FLAG NO
[2022-08-13 10:58] LABS: Basophils Percent Auto 0.4 % (0-2); Eosinophils Absolute Auto 0.2 X10*3/uL (0.0-0.4); Eosinophils Percent Auto 3.5 % (0-4); Hematocrit 35.8 % (37.0-47.0); Hemoglobin 11.5 g/dl (12.0-16.0); Imm Gran Abs Auto 0.01 X10*3/uL (0.00-0.03); Imm Gran Pct Auto 0.2 % (0.0-0.4); Lymphocytes Absolute Auto 1.1 X10*3/uL (1.2-4.9); Lymphocytes Percent Auto 23.2 % (20-40); Mean Corpuscular HGB Conc 32.1 g/dl (31.0-35.0); Mean Corpuscular Hemoglobin 30.1 pg (27.0-33.0); Mean Corpuscular Volume 93.7 fL (80.0-98.0); Monocytes Absolute Auto 0.4 X10*3/uL (0.1-1.2); Monocytes Percent Auto 9.5 % (2-11); Neutrophils Absolute Auto 2.9 x10*3/uL (2.0-8.3); Neutrophils Percent Auto 63.2 % (45-73); Platelet Count 243 X10*3/uL (160-400); Red Blood Count 3.82 X10*6/uL (4.20-5.50); Red Cell Distribution Width 12.9 % (11.0-16.0); White Blood Count 4.5 X10*3/uL (4.8-10.8)
[2022-08-13 11:33] LABS: Appearance Urine Hazy; Color Urine Yellow; Glucose Urine UA Negative (Negative); Leukocyte Esterase Urine Small (1+) (Negative); Nitrite Urine Negative (Negative); PH 5.5 (5.0-9.0); Specific Gravity - Urine 1.025 (1.005-1.025); UMIC TRIGGER UA YES; Urine Blood Negative (Negative); Urine Ketones Negative (Negative); Urine Protein 100 (2+) mg/dL (Neg-Trace)
[2022-08-13 11:37] LABS: Bacteria Urine 1+ (None Seen); Hyaline Casts Urine 0-2 /LPF (0-2); RBC Urine 0-2 /HPF (0-2); Squamous Epithelial Cell Urine >20 /HPF (0-2); WBC Urine 21-50 /HPF (0-5)
[2022-08-13 12:00] LABS: Albumin Level 4.5 g/dL (3.5-5.0); Anion Gap 15 (12-20); Blood Urea Nitrogen 28 mg/dL (9-16); Carbon Dioxide 23 mmol/L (22-29); Chloride 110 mmol/L (96-108); Estimated Glomerular Filt Rate 46; Magnesium 1.5 mg/dL (1.6-2.6); Phosphorus 3.1 mg/dL (2.7-4.5); Sodium 143 mmol/L (135-145)
[2022-08-13 12:30] LABS: Vitamin D 25-OH Total 18.4 ng/mL (>30)
[2022-08-13 14:12] LABS: Creatinine Urine 121.23 mg/dL; Microalbum/Creatinine Ratio Ur 405.8 ug/mg cr; Protein/Creatinine Ratio, Ur 0.57 (<0.2); Total Protein Urine Random 69 mg/dL (<12)
[2022-08-15 12:23] LABS: Calcium (PTHI) 9.8 mg/dL (8.6-10.4); PTHI 150 pg/mL (16-77)
== END 2022-08-13 09:21 | disposition home or self-care (01) ==
LOC: HO.LAB 09:20
PROVIDERS: PCP Internal Medicine; Visit Provider Internal Medicine Nephrology
DX: I12.9 Hypertensive chronic kidney disease with stage 1 through stage 4 chronic kidney disease, or unspecified chronic kidney disease (principal); N18.31 Chronic kidney disease, stage 3a; N25.0 Renal osteodystrophy
CPT/HCPCS: 36415; 80051; 81001; 82040; 82043; 82306; 82310; 82565; 83735; 83970; 84100; 84156; 84520; 85025; 87086

== ENCOUNTER 2022-09-19 12:43 | Inpatient (IN) | payer MEDICARE, SELFPAY ==
--- NOTE | ~2022-09-19 | MR_ITS ---
MRI OF THE BRAIN WITHOUT IV CONTRAST INDICATION: Right-sided weakness/stroke. COMPARISON: Head CT 09/19/2022. TECHNIQUE: Multiplanar multisequence MR imaging of the brain was obtained without IV contrast. FINDINGS: Artifact versus an acute to subacute infarct within the left ventral michelle. There is global cerebral volume loss and there is advanced chronic microangiopathy. No mass effect and no hemorrhagic transformation. No additional acute infarcts. There is no hydrocephalus, extra-axial surface collection, or herniation. The major flow voids at the skull base are preserved. There is no intracranial hemorrhage on the gradient recalled echo acquisition. The midline structures are normal. The cerebellar tonsils are normally positioned. The craniocervical junction is normal. Osseous marrow signal intensity is homogenous. The visualized soft tissues are unremarkable. MR/MR head/brain wo con IMPRESSION: - Artifact versus an acute to subacute infarct within the left ventral michelle. No mass effect and no hemorrhagic transformation. No additional acute infarcts. - There is global cerebral volume loss and there is advanced chronic microangiopathy.
--- NOTE | ~2022-09-19 | CT_ITS ---
EXAMINATION: CT HEAD WITHOUT CONTRAST (STROKE PROTOCOL) CLINICAL INFORMATION: Stroke protocol. Express of aphasia, right arm weakness, resolving. COMPARISON: None TECHNIQUE: Contiguous axial imaging was performed from the skull base to vertex without intravenous administration of contrast. Additional 2-D coronal and sagittal reformatted images are generated on the CT workstation and uploaded to PACS. This CT examination was performed using dose optimization techniques as appropriate, variously including the following: *Automated exposure control *Adjustment of mA and/or kV according to patient size (this includes techniques or standardized protocols for targeted exams where dose is matched to indication/reason for exam; i.e. extremities or head) *Use of iterative reconstruction technique DLP: 661 mGy-cm FINDINGS: There is no intracranial hemorrhage, hematoma, or extra-axial fluid collection. There are generalized atrophic changes with prominence of the cortical sulci and fissures and cisterns. The ventricles are normal in size and there is no hydrocephalus, edema, or mass effect. Extensive periventricular white matter gliosis is present. The hardwick-white matter differentiation appears well preserved . No dense vessel sign. There is no visible acute territorial infarct or mass lesion. The calvarium appears intact. There is no pneumocephalus or orbital emphysema. The visualized sinuses and middle ears and mastoid air cells show no significant mucosal thickening. There are no air-fluid levels. Results called and discussed with Dr. Grover in the emergency department at [address]/CT head for stroke IMPRESSION: 1. No acute intracranial abnormality. 2. Extensive periventricular white matter gliosis consistent with chronic small vessel ischemic changes. 3. No hydrocephalus, edema, or mass effect.
--- NOTE | ~2022-09-19 | CT_ITS ---
CT ANGIOGRAM BRAIN, HEAD CLINICAL INFORMATION: Right-sided weakness. Follow-up stroke. COMPARISON: Brain MRI 09/20/2022. TECHNIQUE: Test bolus sequences followed by intravenous administration 75 mL of Omnipaque 350 intravenous contrast. Helical imaging was performed in the axial plane from the skull base to the vertex. Delayed postcontrast imaging of the head was also performed. The data was processed at the rad technologist workstation for generation of MIP sequences. Three-dimensional volume rendered reformatted images were also generated at an offline 3-D workstation. The degree of stenosis determined by NASCET criteria. This CT examination was performed using dose optimization techniques as appropriate, variously including the following: *Automated exposure control *Adjustment of mA and/or kV according to patient size (this includes techniques or standardized protocols for targeted exams where dose is matched to indication/reason for exam; i.e. extremities or head) *Use of iterative reconstruction technique FINDINGS: There is no pathologic enhancement intracranially. There is advanced chronic microangiopathy. There is no intracranial hemorrhage, hydrocephalus, extra-axial surface collection, midline shift, or other herniation pattern. Mccloud to white matter differentiation is diffusely maintained without evidence of an evolved acute territorial infarct. The basilar cisterns are preserved. No significant soft tissue abnormality. No acute osseous abnormality. The paranasal sinuses and the mastoid air cells are well aerated. No acute arterial occlusions and no significant arterial stenoses intracranially. Atherosclerotic calcification throughout the carotid siphons bilaterally without significant stenosis. No aneurysms and no high flow vascular malformations. The superficial and deep venous systems remain widely patent. CT/CT angio head IMPRESSION: - Artifact versus an acute to subacute infarct within the left ventral michelle is better demonstrated on the corresponding brain MRI. No new acute intracranial findings. Advanced chronic microangiopathy. - No acute arterial occlusions and no significant arterial stenoses intracranially.
--- NOTE | ~2022-09-19 | US_ITS ---
EXAMINATION: US EXTRACRANIAL CAROTID DUPLEX, BILATERAL CLINICAL INFORMATION: Word finding difficulty COMPARISON: None TECHNIQUE: Real-time ultrasound and Doppler techniques (integrating B-mode 2-D vascular images, Doppler spectral analysis and color-flow Doppler imaging) were utilized to interrogate the extracranial carotid arteries, the vertebral arteries and proximal subclavian arteries bilaterally. The degree of stenosis is determined by criteria similar to NASCET. FINDINGS: Right Side: 1. There is no significant atherosclerotic plaque seen in the bifurcation/proximal ICA region. 2. The common carotid artery PSV proximally is 116 cm/s and distally 91 cm/s. 3. The proximal internal carotid artery velocities are 67 cm/s systolic and 19 cm/s diastolic. 4. The proximal external carotid artery PSV is 82 cm/s. 5. The vertebral artery shows antegrade flow. 6. The subclavian artery waveforms are normal. Left Side: 1. There is no significant atherosclerotic plaque seen in the bifurcation/proximal ICA region. 2. The common carotid artery PSV proximally is 110 cm/s and distally 107 cm/s. 3. The proximal internal carotid artery velocities are 81 cm/s systolic and 14 cm/s diastolic. 4. The proximal external carotid artery PSV is 79 cm/s. 5. The vertebral artery shows antegrade flow. 6. The subclavian artery waveforms are normal. US/US carotid duplex BI IMPRESSION: 1. RIGHT: Normal right internal carotid artery without atherosclerotic plaque or hemodynamically significant stenosis. 2. LEFT: Minimal, non-hemodynamically significant stenosis of the proximal left internal carotid artery corresponding to a 0-49% stenosis by velocity criteria.
--- NOTE | ~2022-09-19 | XR_ITS ---
EXAMINATION: XR CHEST CLINICAL INFORMATION: Weakness. Evaluate for pneumonia. COMPARISON: 01/02/2022 TECHNIQUE: Frontal view of the chest was obtained. FINDINGS: Lungs are well expanded. No evidence of pulmonary consolidation or pleural effusion. Possible small linear opacity of atelectasis in the lateral left upper lobe. Pulmonary vascular pattern is normal. Cardiac silhouette is normal in size. There is atherosclerotic calcification of the aorta. Bones are diffusely osteopenic. Multilevel discovertebral degenerative change of the spine. XR/XR chest 1V IMPRESSION: No acute findings. No radiographic evidence of pneumonia.
--- NOTE | 2022-09-19 12:48 | ECG_ITS ---
Test Reason : TIA Blood Pressure : / mmHG Vent. Rate : 058 BPM Atrial Rate : 058 BPM P-R Int : 162 ms QRS Dur : 084 ms QT Int : 408 ms P-R-T Axes : -28 018 051 degrees QTc Int : 400 ms Artifact in tracing Sinus bradycardia Otherwise normal ECG When compared with ECG of 02-JAN-2022 16:23, No significant change was found Referred By: Teodoro Grover Electronically Signed By:UMU STEVENS
[2022-09-19 13:06] VITALS: BP 156/68; PULSE 85; RESP 18; TEMP 36.7; O2SAT 99; BMI 22.6
--- NOTE | 2022-09-19 13:26 | ED_ITS ---
HPI - General Adult General Chief complaint: General Medical Stated complaint: TIA Time Seen by Provider: 09/19/22 12:48 Source: patient and EMS Mode of arrival: EMS Limitations: no limitations History of Present Illness HPI narrative: 66-year-old female who presents emergency department for evaluation of stroke-li ke symptoms. The patient states that she was working in the kitchen and then went into the living room to watch television. She states that she sat down and suddenly felt dizzy. She describes the dizziness as a sensation is if she was floating. She then developed numbness on the right side of her face and numbness in her right arm. The patient then developed an expressive aphasia where she was unable to find words or talk. She also felt her right was weak. The patient's and his JAVA USER INTERFACE DEVELOPER or at the house the patient. The JAVA USER INTERFACE DEVELOPER was concerned that the patient could not talk and called an ambulance. The patient believes that incident started around noon time. She states the symptoms lasted approximately 5 minutes and then resolved. At the time evaluation the patient was able to talk and give a good history without difficulty. Patient states that 1 prior when she was on the phone talking to her sister she had a brief episode of expressive aphasia that lasted approximately 2 minutes. The patient states she has not been ill in way prior to today symptoms. She denied fever, chills, rhinorrhea, sore throat,, chest pain, shortness of, nausea, vomiting. She states that she did 3 episodes of soft stools today but she attributes this to drinking a Coffee [employer]. Related Data Home Medications Medication Instructions Recorded Confirmed ergocalciferol (vitamin D2) 1,250 1,250 mcg PO Q14D 09/30/20 09/19/22 mcg (50,000 unit) capsule aspirin 81 mg chewable tablet 81 mg PO BEDTIME 02/16/21 09/19/22 nifedipine 90 mg tablet,extended 90 mg PO DAILY 02/16/21 09/19/22 release 24 hr psyllium husk 0.52 gram capsule 1.04 g PO BEDTIME 02/16/21 09/19/22 (Metamucil) carvedilol 6.25 mg tablet 1 tab PO BID 01/02/22 09/19/22 chlorthalidone 25 mg tablet 25 mg PO DAILY 02/26/22 09/19/22 lorazepam 0.5 mg tablet 0.5 mg PO DAILY PRN Anxiety 09/19/22 09/19/22 simvastatin 20 mg tablet 20 mg PO DAILY@1700 09/19/22 09/19/22 Previous Rx's Medication Instructions Recorded pantoprazole 40 mg tablet,delayed 40 mg PO DAILY@0630 #90 tabs 02/26/22 release Allergies Allergy/AdvReac Type Severity Reaction Status Date / Time No Known Drug Intolerances Allergy Unknown NOT Verified 06/20/22 13:58 APPLICABLE Review of Systems Review of Systems: Yes all other systems are reviewed and are negative [facility] Past Medical History [facility] Narrative: Past medical history reviewed below: Patient states she has stage III kidney cancer was causes peripheral edema therefore she takes a diuretic. Social history: She lives at with her . She is a former smoker and stop smoking 40 years prior, she smoked 15 years. She denies alcohol use. She denies drug use. Medical History Anemia Aortic stenosis Biliary colic Hyperlipidemia Hypertension Hypertension Surgical History Hammertoe, bilateral History of cholecystectomy Total knee replacement status Family History Family History Father Heart disease Mother No problems noted. Brother Heart disease Social History Social History Household Members: Spouse Housing: House Do you presently have visiting nurse or other home services: No Unable to assess alcohol history related to: Unknown Alcohol intake: current Alcohol intake frequency: does not drink Alcohol type: hard liquor Patient Tobacco Use Status: Former Tobacco user Quit Date: 1981 Tobacco use type: Cigarette Years Smoked: 25 Smoked in Last 30 Days: No e-Cigarette/Vaping Use: Never Used Second Hand Smoke Exposure: No Use of substances other than those prescribed or required for medical reasons: No Advance Directives: Yes Advance Directives on File: Yes Advance Directives Date on File: 02/17/21 service: No Current occupational status: retired Cognitive needs: No Hearing needs: No Vision needs: No Physical Exam ED Vital Signs: Vital Signs - 24 hr 09/19/22 13:06 09/19/22 15:14 Temperature 98.1 F 98.6 F Pulse Rate 85 51 Respiratory Rate 18 16 Blood Pressure 156/68 H 174/68 H Pulse Oximetry 99 95 Oxygen Delivery Method Room Air Room Air BMI result Body Mass Index 22.6 Const General: cooperative and no acute distress Orientation/consciousness: oriented to person and oriented to place Limitations: no limitations HENMT Head: Yes normal to inspection, Yes normocephalic and Yes atraumatic Ears: external ears normal General nose exam: Normal external nose present Face and sinus: Yes normal facial exam Mouth: Normal oral and palatal mucosa present Throat: Yes posterior oropharynx normal Eyes General: appearance normal, both eyes and all related structures Pupils: Equal, round and reactive pupils present Neck Neck: Yes normal visual inspection, Yes no lymphadenopathy, Yes trachea midline and Yes supple Chest Chest palpation & inspection: normal inspection of the chest and normal palpation of entire chest wall Resp Effort & Inspection: normal respiratory effort and able to speak in complete sentences Auscultation: clear to auscultation bilaterally Cardio Rate: regular rate Rhythm: regular rhythm Heart sounds: S1 normal heart sound present, S2 normal heart sound present and no murmurs GI Inspection: Yes normal to inspection Palpation (GI): Soft to palpation, nontender and no guarding Auscultation: normal bowel sounds General: Yes no CVA tenderness Back/Spine/Pelvis Back: no CVA tenderness Skin General skin exam: no rashes or lesions noted Neuro General: oriented to person and oriented to place Cranial nerves: Yes CN's II-XII intact bilaterally and Yes Equal, round and reactive pupils present Cognition (Neuro): normal cognition Motor exam (neuro): 5/5 motor strength present throughout Extrem Other: Trace bilateral pitting edema Psych Appearance: grossly normal Speech and movement: Normal speech and movement present Affect: normal affect Attitude: cooperative Thought process: Normal thought process present Thought content: Normal thought content present NIH Stroke Scale Internal: Initial- Upon Arrival Level of Consciousness: Alert Level of Consciousness Questions: Answers both questions correctly Level of Consciousness Commands: Performs both tasks correctly Best Gaze: Normal Visual: No visual loss Facial Palsy: Normal Motor Arm (Right): No drift Motor Arm (Left): No drift Motor Leg (Right): No drift Motor Leg (Left): No drift Limb Ataxia: Absent Sensory: Normal Best Language: No aphasia Dysarthia: Normal Extinction and Inattention: No abnormality Score: 0 Medications Administered Discontinued Medications Generic Name Dose Route Start Last Admin Trade Name Teagan PRN Reason Stop Dose Admin Aspirin 162 mg 09/19/22 13:46 09/19/22 13:54 Aspirin 81 Mg Tab.Chew PO 09/19/22 13:47 162 mg ONCE STA Administration Medical Decision Making Medical Decision Making [facility] Narrative: 86-year-old female who presents emergency department evaluation of stroke-like symptoms which and included right-sided facial and arm numbness with mild right arm weakness, expressive aphasia with symptoms lasting approximately 5 minutes and completely resolved at the time of my evaluation. Patient also had an episode aphasia which lasts approximately 2 minutes, 1 week prior while she was talking on the phone with her sister. I evaluated the patient the licensed plumber stretcher and the patient was sent immediately radiology for a CT head to rule out stroke, bleed or mass effect. Also ordered laboratory evaluation to include CBC, CMP , liver panel CK, PT/INR, PTT, troponin, urinalysis, alcohol level. 1352: I did discuss the patient's CT scan of the brain with the radiologist Kee Mcghee. There was no acute intracranial abnormality to explain the patient's symptoms but the patient does have extensive periventricular white matter and small-vessel ischemic changes. Given that the patient has no symptoms at this time and her NIH stroke scale is 0, she is not a thrombolytics candidate. 1523: Laboratory evaluation interpretation by me as follows: BUN creatinine elevated 291.44, potassium elevated 5.2, WBC low 4100. COVID influenza and RSV were negative. Radiology interpretation by me as follows: CT scan of the brain consistent with contrast, chronic white matter changes, atrophy, no acute bleed or infarct noted. 1532: Did discuss the patient's presentation with the covering hospitalist, Dr. Multani and the patient will be admitted service for further management. Differential Diagnosis Differential Diagnoses: The differential diagnosis associated with the presentation includes Differential includes was not limited to stroke, TIA, cerebral bleed, seizure, anxiety Lab Data [facility] Lab Attestation statement: I reviewed the patient's lab results. Please see MDM from my interpretation of labs Result Diagrams: 09/19/22 13:19 09/19/22 13:19 Labs: Lab Results 09/19/22 09/19/22 09/19/22 Range/Units 13:19 13:19 13:19 WBC 4.1 L (4.8-10.8) X10*3/uL RBC 4.13 L (4.20-5.50) X10*6/uL Hgb 12.7 (12.0-16.0) g/dl Hct 37.9 (37.0-47.0) % MCV 91.8 (80.0-98.0) fL MCH 30.8 (27.0-33.0) pg MCHC 33.5 (31.0-35.0) g/dl RDW 12.6 (11.0-16.0) % Plt Count 225 (160-400) X10*3/uL MPV 9.5 (9.4-12.3) fL Immature Gran % (Auto) 0.2 (0.0-0.4) % Neut % (Auto) 57.1 (45-73) % Lymph % (Auto) 30.2 (20-40) % Daggett % (Auto) 9.3 (2-11) % Eos % (Auto) 2.7 (0-4) % Baso % (Auto) 0.5 (0-2) % Lymph # (Auto) 1.2 (1.2-4.9) X10*3/uL Daggett # (Auto) 0.4 (0.1-1.2) X10*3/uL Eos # (Auto) 0.1 (0.0-0.4) X10*3/uL Baso # (Auto) 0.0 (0.0-0.2) X10*3/uL Abs Immat Gran (auto) 0.01 (0.00-0.03) X10*3/uL Absolute Neuts (auto) 2.3 (2.0-8.3) x10*3/uL Absolute Nucleated RBC 0.000 (0.0-0.012) X10*3/uL Nucleated RBC % (auto) 0.0 (0.0-0.2) /100WBC PT 10.5 (10.0-13.1) SEC INR 0.9 (0.9-1.1) APTT 29.8 (26.0-36.4) SEC Sodium 141 (135-145) mmol/L Potassium 5.2 H (3.3-5.1) mmol/L Chloride 109 H (96-108) mmol/L Carbon Dioxide 24 (22-29) mmol/L Anion Gap 13 (12-20) BUN 29 H (9-16) mg/dL Creatinine 1.44 H (0.5-1.4) mg/dL Estim Creat Clear Calc 26.7 Estimated GFR 35 Random Glucose 94 (60-115) mg/dL Calcium 9.8 (8.4-10.2) mg/dL Total Bilirubin 0.3 (0.0-1.0) mg/dL Direct Bilirubin < 0.2 (0.0-0.5) mg/dL AST 14 (5-31) U/L ALT 10 (0-31) U/L Alkaline Phosphatase 140 H (39-117) U/L Total Creatine Kinase 59 (26-140) U/L Troponin I High Sens (<3.5-17.0) ng/L Total Protein 7.8 (6.5-8.0) g/dL Albumin 4.7 (3.5-5.0) g/dL Ethyl Alcohol < 10 mg/dL Influenza Type A (PCR) (Negative) Influenza Type B (PCR) (Negative) RSV RNA Qual (PCR) (Negative) SARS-CoV-2 RNA (RT-PCR) (Negative) 09/19/22 09/19/22 Range/Units 13:19 14:08 WBC (4.8-10.8) X10*3/uL RBC (4.20-5.50) X10*6/uL Hgb (12.0-16.0) g/dl Hct (37.0-47.0) % MCV (80.0-98.0) fL MCH (27.0-33.0) pg MCHC (31.0-35.0) g/dl RDW (11.0-16.0) % Plt Count (160-400) X10*3/uL MPV (9.4-12.3) fL Immature Gran % (Auto) (0.0-0.4) % Neut % (Auto) (45-73) % Lymph % (Auto) (20-40) % Daggett % (Auto) (2-11) % Eos % (Auto) (0-4) % Baso % (Auto) (0-2) % Lymph # (Auto) (1.2-4.9) X10*3/uL Daggett # (Auto) (0.1-1.2) X10*3/uL Eos # (Auto) (0.0-0.4) X10*3/uL Baso # (Auto) (0.0-0.2) X10*3/uL Abs Immat Gran (auto) (0.00-0.03) X10*3/uL Absolute Neuts (auto) (2.0-8.3) x10*3/uL Absolute Nucleated RBC (0.0-0.012) X10*3/uL Nucleated RBC % (auto) (0.0-0.2) /100WBC PT (10.0-13.1) SEC INR (0.9-1.1) APTT (26.0-36.4) SEC Sodium (135-145) mmol/L Potassium (3.3-5.1) mmol/L Chloride (96-108) mmol/L Carbon Dioxide (22-29) mmol/L Anion Gap (12-20) BUN (9-16) mg/dL Creatinine (0.5-1.4) mg/dL Estim Creat Clear Calc Estimated GFR Random Glucose (60-115) mg/dL Calcium (8.4-10.2) mg/dL Total Bilirubin (0.0-1.0) mg/dL Direct Bilirubin (0.0-0.5) mg/dL AST (5-31) U/L ALT (0-31) U/L Alkaline Phosphatase (39-117) U/L Total Creatine Kinase (26-140) U/L Troponin I High Sens 29.0 H (<3.5-17.0) ng/L Total Protein (6.5-8.0) g/dL Albumin (3.5-5.0) g/dL Ethyl Alcohol mg/dL Influenza Type A (PCR) NEGATIVE (Negative) Influenza Type B (PCR) NEGATIVE (Negative) RSV RNA Qual (PCR) NEGATIVE (Negative) SARS-CoV-2 RNA (RT-PCR) NEGATIVE (Negative) Independent Interpretation I performed an independent interpretation of an: EKG and CT Scan (Head) Interpretation: My independent interpretation of the CT scan of the head contrast, white matter changes, atrophy, no acute stroke or bleed. I agree with the radiology reading as well. My independent interpretation the patient's 12 EKG done at 1325 is as follows: Sinus bradycardia with a rate of 58, normal DE interval, QRS duration QTC interval, wandering baseline, no ST segment elevation, no T-wave inversions, no PACs, no PVCs except for the bradycardia this is otherwise a normal EKG. Radiology Impression Discussion of test interpretation with radiology: I discussed test interpretation with the radiologist and I have reviewed the radiologist's reading. Radiologist Impression: IMPRESSION: 1. No acute intracranial abnormality. 2. Extensive periventricular white matter gliosis consistent with chronic small vessel ischemic changes. 3. No hydrocephalus, edema, or mass effect. Dictated By:Avery Mcghee MDSigned By:<Electronically signed by Avery Mcghee MD in [place]>09/19/22 1311 Independent Historian Clinical information obtained from an independent historian. History obtained from or confirmed by: Other (Daughter) Critical Care Time Critical Care Time Critical Care Time: Yes Total Critical Care Time: 30 Attestation: Critical Care: The patient was critically ill with a high probability of imminent or life threatening deterioration. I spent greater than 30 minutes of discontinuous time evaluating the patient,delivering critical care at the bedside, discussing and evaluating pertinent data with consultants. Critical care time does not include time spent performing separately billable procedures or teaching. Total time spent performing critical care was 30 minutes. Discharge Plan Discharge Clinical Impression: Expressive aphasia, Right arm weakness, Brain TIA Patient Disposition: Admitted As Inpatient Prescriptions: No Action pantoprazole 40 mg tablet,delayed release (DR/EC) 40 mg PO DAILY@0630 Qty: 90 8RF nifedipine 90 mg tablet extended release 24hr 90 mg PO DAILY aspirin 81 mg Tablet,Chewable 81 mg PO BEDTIME psyllium husk [Metamucil] 0.52 gram Capsule 1.04 g PO BEDTIME carvedilol 6.25 mg tablet 1 tab PO BID simvastatin 20 mg tablet 20 mg PO DAILY@1700 lorazepam 0.5 mg Tablet 0.5 mg PO DAILY PRN (Reason: Anxiety) ergocalciferol (vitamin D2) 1,250 mcg (50,000 unit) capsule 1,250 mcg PO Q14D chlorthalidone 25 mg tablet 25 mg PO DAILY
[2022-09-19 13:30] LABS: MANUAL DIFF FLAG NO
[2022-09-19 13:31] LABS: Basophils Percent Auto 0.5 % (0-2); Eosinophils Absolute Auto 0.1 X10*3/uL (0.0-0.4); Eosinophils Percent Auto 2.7 % (0-4); Hematocrit 37.9 % (37.0-47.0); Hemoglobin 12.7 g/dl (12.0-16.0); Imm Gran Abs Auto 0.01 X10*3/uL (0.00-0.03); Imm Gran Pct Auto 0.2 % (0.0-0.4); Lymphocytes Absolute Auto 1.2 X10*3/uL (1.2-4.9); Lymphocytes Percent Auto 30.2 % (20-40); Mean Corpuscular HGB Conc 33.5 g/dl (31.0-35.0); Mean Corpuscular Hemoglobin 30.8 pg (27.0-33.0); Mean Corpuscular Volume 91.8 fL (80.0-98.0); Mean Platelet Volume 9.5 fL (9.4-12.3); Monocytes Absolute Auto 0.4 X10*3/uL (0.1-1.2); Monocytes Percent Auto 9.3 % (2-11); Neutrophils Absolute Auto 2.3 x10*3/uL (2.0-8.3); Neutrophils Percent Auto 57.1 % (45-73); Platelet Count 225 X10*3/uL (160-400); Red Blood Count 4.13 X10*6/uL (4.20-5.50); Red Cell Distribution Width 12.6 % (11.0-16.0); White Blood Count 4.1 X10*3/uL (4.8-10.8)
[2022-09-19 13:39] LABS: INTERNATIONAL NORM RATIO 0.9 (0.9-1.1); Prothrombin Time 10.5 SEC (10.0-13.1)
[2022-09-19 13:42] LABS: Partial Thromboplastin Time 29.8 SEC (26.0-36.4)
[2022-09-19 13:43] LABS: Stroke Lab Use COMPLETE
[2022-09-19] MEDS: Aspirin 81 MG TAB.CHEW 162 MG PO (13:54)
[2022-09-19 14:05] LABS: Alanine Aminotransferase 10 U/L (0-31); Albumin Level 4.7 g/dL (3.5-5.0); Alkaline Phosphatase 140 U/L (39-117); Anion Gap 13 (12-20); Aspartate Amino Transferase 14 U/L (5-31); Bilirubin Direct < 0.2 mg/dL (0.0-0.5); Bilirubin Total 0.3 mg/dL (0.0-1.0); Blood Urea Nitrogen 29 mg/dL (9-16); Calcium 9.8 mg/dL (8.4-10.2); Carbon Dioxide 24 mmol/L (22-29); Chloride 109 mmol/L (96-108); Creatinine Clr Calc Pharmacy 26.7; Estimated Glomerular Filt Rate 35; Ethanol < 10 mg/dL; Glucose Random 94 mg/dL (60-115); Potassium 5.2 mmol/L (3.3-5.1); Sodium 141 mmol/L (135-145); Total Protein 7.8 g/dL (6.5-8.0)
[2022-09-19 15:03] LABS: Influenza A PCR NEGATIVE (Negative); Influenza B PCR NEGATIVE (Negative); Resp Syncy Virus RNA Qual PCR NEGATIVE (Negative); SARS COV2 PCR INHOUSE NEGATIVE (Negative)
--- NOTE | 2022-09-19 15:03 | PHA.MEDREC ---
Pharmacy Consult ? Medication Reconciliation Pharmacy has completed the medication reconciliation.
[2022-09-19 15:14] VITALS: BP 174/68; PULSE 51; RESP 16; TEMP 37; O2SAT 95
--- NOTE | 2022-09-19 15:45 | PC.NURSE ---
pt resting comfortably in bed, given PO aspirin, awaiting inpt bed to neuro. VSS
--- NOTE | 2022-09-19 16:31 | P.HPHOSP_ITS ---
History of Present Illness Date of Service: 09/19/22 <JOSH Evans - Last Filed: 09/19/22 16:51> Attending physician on admission: Lucian Multani <JOSH Evans - Last Filed: 09/19/22 16:51> Chief Complaint: right side weakness <JOSH Evans - Last Filed: 09/19/22 16:51> This is an 86-year-old female with history of hypertension, hyperlipidemia who presents to the emergency department today after an episode of word-finding difficulty and left-sided weakness. Patient was in her usual state of health when she was sitting down watching TV and began noticing a strange sensation. She began having numbness and tingling the right side of her face as well as her right upper extremity. In addition she had word-finding difficulties. The symptoms started at approximately 11:00 o'clock and lasted for 5 minutes. Her symptoms then completely resolved. She did not notice any vision changes or difficulty with her lower extremities were swallowing. She has had no recurrence of her symptoms today, she did have a similar episode 1 week ago when she was talking to her sister on the phone and had word-finding difficulties for approximately 2 minutes. Upon arrival to the emergency department her symptoms had completely resolved. Brain CT was obtained and showed extensive periventricular white matter gliosis consistent with chronic small-vessel ischemic changes, no acute changes. The decision was made to admit her overnight for observation and further workup. <JOSH Evans - Last Filed: 09/19/22 16:51> Review of Systems Review of Systems: Yes all other systems are reviewed and are negative <JOSH Evans Last Filed: 09/19/22 16:51> Constitutional: Constitutional: Denies chills and Denies fever(s) <JOSH Evans Last Filed: 09/19/22 16:51> Eyes: Eyes: Denies blurry vision <JOSH Evans Last Filed: 09/19/22 16:51> ENT: Denies dizziness <JOSH Evans Last Filed: 09/19/22 16:51> Cardiovascular: Cardiovascular: Denies chest pain, Denies palpitations and Denies dyspnea <JOSH Evans - Last Filed: 09/19/22 16:51> Respiratory: Respiratory: Denies cough and Denies dyspnea <JOSH Evans - Last Filed: 09/19/22 16:51> Gastrointestinal: Gastrointestinal: Denies abdominal pain, Denies nausea and Denies vomiting <JOSH Evans - Last Filed: 09/19/22 16:51> Neurologic: Denies dizziness <JOSH Evans - Last Filed: 09/19/22 16:51> Endocrine: Endocrine: Denies palpitations <JOSH Evans - Last Filed: 09/19/22 16:51> [facility] Medical History: Medical History Anemia Aortic stenosis Biliary colic Hyperlipidemia Hypertension Hypertension <JOSH Evans - Last Filed: 09/19/22 16:51> Functional capacity: uses cane/walker <JOSH Evans - Last Filed: 09/19/22 16:51> Family History: Family History Father Heart disease Mother No problems noted. Brother Heart disease <JOSH Evans - Last Filed: 09/19/22 16:51> Pertinent family history: mother - no history of stroke; father when she was young - no know history of stroke <JOSH Evans - Last Filed: 09/19/22 16:51> Surgical History: Surgical History Hammertoe, bilateral History of cholecystectomy Total knee replacement status <JOSH Evans - Last Filed: 09/19/22 16:51> Social History: Social History Household Members: Spouse Housing: House Do you presently have visiting nurse or other home services: No Unable to assess alcohol history related to: Unknown Alcohol intake: current Alcohol intake frequency: does not drink Alcohol type: hard liquor Patient Tobacco Use Status: Former Tobacco user Quit Date: 1981 Tobacco use type: Cigarette Years Smoked: 25 Smoked in Last 30 Days: No e-Cigarette/Vaping Use: Never Used Second Hand Smoke Exposure: No Use of substances other than those prescribed or required for medical reasons: No Advance Directives: Yes Advance Directives on File: Yes Advance Directives Date on File: 02/17/21 service: No Current occupational status: retired Cognitive needs: No Hearing needs: No Vision needs: No <JOSH Evans - Last Filed: 09/19/22 16:51> Meds Allergies/Adverse reactions: Allergies Allergy/AdvReac Type Severity Reaction Status Date / Time No Known Drug Intolerances Allergy Unknown NOT Verified 06/20/22 13:58 APPLICABLE <JOSH Evans - Last Filed: 09/19/22 16:51> Active Medications: Current Medications Acetaminophen (Acetaminophen 325 Mg Tablet) 650 mg PO Q6H PRN PRN Reason: Pain, Mild (Pain Scale 1-3) Aspirin (Aspirin 81 Mg Tab.Chew) 81 mg PO BEDTIME [facility] Atorvastatin Calcium (Atorvastatin Calcium 10 Mg Tablet) 10 mg PO DAILY@1700 [facility] Calcium Polycarbophil (Calcium Polycarbophil Tablet) 1 tab PO BEDTIME [facility] Carvedilol (Carvedilol 6.25 Mg Tablet) 6.25 mg PO BID [facility]; Protocol Docusate Sodium (Docusate Sodium 100 Mg Capsule) 100 mg PO DAILY PRN PRN Reason: Constipation Enoxaparin Sodium (Enoxaparin Sodium 40 Mg/0.4 Ml Syringe) 40 mg SUBCUT Q24H [facility] Lorazepam (Lorazepam 0.5 Mg Tablet) 0.5 mg PO DAILY PRN PRN Reason: Anxiety Omeprazole (Omeprazole 20 Mg Capsule.Dr) 20 mg PO DAILY@0630 [facility] Pharmacy Consult (Consult Rx Perform Med Rec) 1 each MISCELLANE ONCE PRN PRN Reason: Consult order Sodium Chloride (0.9 % Sodium Chloride Flush 3 Ml Syringe) 3 ml IVFLUSH QSHIFT [facility] <JOSH Evans - Last Filed: 09/19/22 16:51> Home medications: Home Medications Medication Instructions Recorded Confirmed Last Taken Type ergocalciferol (vitamin D2) 1,250 1,250 mcg PO Q14D 09/30/20 09/19/22 09/13/22 History mcg (50,000 unit) capsule aspirin 81 mg chewable tablet 81 mg PO BEDTIME 02/16/21 09/19/22 09/18/22 History nifedipine 90 mg tablet,extended 90 mg PO DAILY 02/16/21 09/19/22 09/19/22 History release 24 hr psyllium husk 0.52 gram capsule 1.04 g PO BEDTIME 02/16/21 09/19/22 09/18/22 History (Metamucil) carvedilol 6.25 mg tablet 1 tab PO BID 01/02/22 09/19/22 09/19/22 History chlorthalidone 25 mg tablet 25 mg PO DAILY 02/26/22 09/19/22 09/19/22 History lorazepam 0.5 mg tablet 0.5 mg PO DAILY PRN Anxiety 09/19/22 09/19/22 Unknown History simvastatin 20 mg tablet 20 mg PO DAILY@1700 09/19/22 09/19/22 09/18/22 History <JOSH Evans Last Filed: 09/19/22 16:51> Physical Exam Vital Signs and Narrative: Vital Signs: Last Vital Signs Temp 98.6 F 09/19/22 15:14 Pulse 51 09/19/22 15:14 Resp 16 09/19/22 15:14 BP 174/68 H 09/19/22 15:14 Pulse Ox 95 09/19/22 15:14 O2 Del Method 09/19/22 15:14 BMI result Body Mass Index 22.6 <JOSH Evans Last Filed: 09/19/22 16:51> Const: General: cooperative, comfortable, alert and awake <JOSH Evans Last Filed: 09/19/22 16:51> Nutritional Appearance: average body habitus <JOSH Evasn Last Filed: 09/19/22 16:51> Orientation/consciousness: patient oriented x3 <JOSH Evans Last Filed: 09/19/22 16:51> Eyes: Pupils: Equal, round and reactive pupils present <JOSH Evans Last Filed: 09/19/22 16:51> Resp: Effort & Inspection: normal respiratory effort and able to speak in complete sentences <JOSH Evans Last Filed: 09/19/22 16:51> Auscultation: diminished lung sounds <JOSH Evans - Last Filed: 09/19/22 16:51> Cardio: Rate: regular rate <JOSH Evans - Last Filed: 09/19/22 16:51> Heart sounds: Murmur heart sound present <JOSH Evans - Last Filed: 09/19/22 16:51> GI: Inspection: No distended <JOSH Evans - Last Filed: 09/19/22 16:51> Palpation (GI): Soft to palpation and nontender <JOSH Evans - Last Filed: 09/19/22 16:51> Neuro: General: patient oriented x3, moves all extremities and CN's II-XI intact bilaterally <JOSH Evans - Last Filed: 09/19/22 16:51> Cranial nerves: Yes Equal, round and reactive pupils present and Yes Midline tongue present <JOSH Evans - Last Filed: 09/19/22 16:51> Cognition (Neuro): normal cognition <JOSH Evans - Last Filed: 09/19/22 16:51> Motor exam (neuro): Pronator motor function not present <JOSH Evans - Last Filed: 09/19/22 16:51> Extrem: Other: right arm mobility limited by chronic pain/rotator cuff dysfunction <JOSH Evans - Last Filed: 09/19/22 16:51> Results Labs CBC and Chem 7: : 09/19/22 13:19 09/19/22 13:19 <JOSH Evans - Last Filed: 09/19/22 16:51> Labs: Laboratory Results - last 24 hr 09/19/22 09/19/22 09/19/22 13:19 13:19 13:19 MCV 91.8 MCH 30.8 MCHC 33.5 RDW 12.6 Plt Count 225 MPV 9.5 Immature Gran % (Auto) 0.2 Neut % (Auto) 57.1 Lymph % (Auto) 30.2 [place] % (Auto) 9.3 Eos % (Auto) 2.7 Baso % (Auto) 0.5 Lymph # (Auto) 1.2 [place] # (Auto) 0.4 Eos # (Auto) 0.1 Baso # (Auto) 0.0 Abs Immat Gran (auto) 0.01 Absolute Neuts (auto) 2.3 Absolute Nucleated RBC 0.000 Nucleated RBC % (auto) 0.0 PT 10.5 INR 0.9 APTT 29.8 Anion Gap 13 Estim Creat Clear Calc 26.7 Estimated GFR 35 Random Glucose 94 Calcium 9.8 Total Bilirubin 0.3 Direct Bilirubin < 0.2 AST 14 ALT 10 Alkaline Phosphatase 140 H Total Creatine Kinase 59 Troponin I High Sens Total Protein 7.8 Albumin 4.7 Ethyl Alcohol < 10 Influenza Type A (PCR) Influenza Type B (PCR) RSV RNA Qual (PCR) SARS-CoV-2 RNA (RT-PCR) 09/19/22 09/19/22 13:19 14:08 MCV MCH MCHC RDW Plt Count MPV Immature Gran % (Auto) Neut % (Auto) Lymph % (Auto) [place] % (Auto) Eos % (Auto) Baso % (Auto) Lymph # (Auto) [place] # (Auto) Eos # (Auto) Baso # (Auto) Abs Immat Gran (auto) Absolute Neuts (auto) Absolute Nucleated RBC Nucleated RBC % (auto) PT INR APTT Anion Gap Estim Creat Clear Calc Estimated GFR Random Glucose Calcium Total Bilirubin Direct Bilirubin AST ALT Alkaline Phosphatase Total Creatine Kinase Troponin I High Sens 29.0 H Total Protein Albumin Ethyl Alcohol Influenza Type A (PCR) NEGATIVE Influenza Type B (PCR) NEGATIVE RSV RNA Qual (PCR) NEGATIVE SARS-CoV-2 RNA (RT-PCR) NEGATIVE <JOSH Evans - Last Filed: 09/19/22 16:51> Imaging Radiologist's Impressions: Impressions Head CT 09/19/22 13:00 IMPRESSION: 1. No acute intracranial abnormality. 2. Extensive periventricular white matter gliosis consistent with chronic small vessel ischemic changes. 3. No hydrocephalus, edema, or mass effect. Chest X-Ray 09/19/22 14:03 IMPRESSION: No acute findings. No radiographic evidence of pneumonia. <JOSH Evans Last Filed: 09/19/22 16:51> Assessment and Plan (1) Brain TIA: Status: Acute <JOSH Evans Last Filed: 09/19/22 16:51> (2) Hypertension: Status: Acute <JOSH Evans - Last Filed: 09/19/22 16:51> This is an 86-year-old female with history of hypertension, hyperlipidemia, CKD, aortic stenosis who presents emergency department with 5 minutes of right-sided facial numbness, right upper extremity weakness and word- finding difficulties Right-sided weakness Possible TIA versus stroke Brain CT negative for acute changes Symptoms completely resolved, not a candidate for tPA -tele monitoring, neuro checks, neurology consult, carotid US, MRI brain -PT evaluation per stroke protocol -continue home ASA, statin, follow lipid profile -hold BP meds to allow for permissive hypertension Kimberly on CKD3 hold chlorthalidone follow BMP Hyperkalemia, mild k 5.2 follow BMP HTN hold home meds as above HR 51, may need to decrease dose of coreg on discharge HLD continue statin dvt ppx - lovenox, renal dosed attending - dr. multani <JOSH Evans - Last Filed: 09/19/22 16:51> This is an 86-year-old female with history of hypertension, hyperlipidemia, CKD, aortic stenosis who presents emergency department with 5 minutes of right-sided facial numbness, right upper extremity weakness and word- finding difficulties Right-sided weakness Possible TIA versus stroke Brain CT negative for acute changes Symptoms completely resolved, not a candidate for tPA -tele monitoring, neuro checks, neurology consult, carotid US, MRI brain -PT evaluation per stroke protocol -continue home ASA, statin, follow lipid profile -hold BP meds to allow for permissive hypertension Kimberly on CKD3 hold chlorthalidone follow BMP Hyperkalemia, mild k 5.2 follow BMP HTN hold home meds as above HR 51, may need to decrease dose of coreg on discharge HLD continue statin dvt ppx - lovenox, renal dosed attending - dr. multani Addendum to history and physical by the advanced practice provider, JOSH Villagomez I interviewed and examined the patient. I discussed their presentation and management with the FLAQUITA. I reviewed the history and physical and agree with the documentation, with the following additions and corrections: 86yo F with HTN, HLD, CKD3, aortic stenosis presenting after transient episode of expressive aphasia + RUE weakness. Lasted 5 min and has similar episode lasting 1 wk ago. No neuro deficits on current exam- no pronator drift or facial droop and no extremity weakness. Impression of TIA- admit to [facility] on observation, TTE, tele, MRI, Neuro consult, ASA <Lucian Multani MD - Last Filed: 09/19/22 17:50> Time Spent With Patient Time: Total time managing care of this patient today ____ minutes. <JOSH Evans - Last Filed: 09/19/22 16:51> Quality Stroke Does the patient have a stroke diagnosis?: No <JOSH Evans - Last Filed: 09/19/22 16:51> VTE Prior VTE?: No <JOSH Evans - Last Filed: 09/19/22 16:51> VTE Risk Level:: Medical - moderate - high <JOSH Evans - Last Filed: 09/19/22 16:51> VTE Device Contraindication: N/A - Device Ordered <JOSH Evans - Last Filed: 09/19/22 16:51> VTE Drug Contraindication: N/A - Med Ordered <JOSH Evans - Last Filed: 09/19/22 16:51>
[2022-09-19] MEDS: Atorvastatin Calcium 10 MG TABLET PO (16:57)
[2022-09-19] MEDS: Enoxaparin Sodium 30 MG/0.3 ML SYRINGE SUBCUT (16:57)
--- NOTE | 2022-09-19 17:08 | PC.NURSE ---
MRI checklist filled out with patient and faxed to MRI, swallow screen and neuro checks completed
[2022-09-19 17:09] VITALS: BP 163/59; PULSE 52; RESP 14; TEMP 37; O2SAT 97
--- NOTE | 2022-09-19 18:34 | PC.NURSE ---
patient resting comfortably in bed, VSS, no complaints, neuros intact, awaiting MRI and inpt bed
[2022-09-19 19:09] VITALS: BP 165/51; PULSE 55; RESP 16; O2SAT 95
[2022-09-19] MEDS: Acetaminophen 325 MG TABLET 650 MG PO (19:10)
[2022-09-19 21:13] VITALS: BP 161/74; PULSE 54; RESP 16; TEMP 36.1; O2SAT 97
[2022-09-19] MEDS: 0.9 % Sodium Chloride Flush 3 ML SYRINGE IVFLUSH (21:14)
[2022-09-19] MEDS: Aspirin 81 MG TAB.CHEW PO (21:14)
[2022-09-19] MEDS: calcium polycarbophiL TABLET 1 TAB PO (21:14)
[2022-09-19 23:41] VITALS: BP 184/84; PULSE 53; RESP 18; TEMP 36.6; O2SAT 95
[2022-09-20] VITALS (7 sets, daily range): BP systolic 156–190; BP diastolic 62–82; PULSE 52–92; RESP 18–20; TEMP 36.2–36.8; O2SAT 96–99
[2022-09-20] MEDS: Acetaminophen 325 MG TABLET 650 MG PO (05:27)
[2022-09-20] MEDS: Omeprazole 20 MG CAPSULE.DR PO (05:28)
[2022-09-20 07:26] LABS: Anion Gap 15 (12-20); Blood Urea Nitrogen 24 mg/dL (9-16); Calcium 8.9 mg/dL (8.4-10.2); Carbon Dioxide 21 mmol/L (22-29); Chloride 108 mmol/L (96-108); Cholesterol 141 mg/dL; Creatinine Clr Calc Pharmacy 40.5; Estimated Glomerular Filt Rate 56; Glucose Random 84 mg/dL (60-115); HDL Cholesterol 41 mg/dL; LDL Cholesterol Calculated 71 mg/dl; Potassium 4.8 mmol/L (3.3-5.1); Sodium 139 mmol/L (135-145); Triglycerides 147 mg/dL
[2022-09-20] MEDS: carvediloL 3.125 MG TABLET PO ×2 (08:03→20:34)
[2022-09-20] MEDS: 0.9 % Sodium Chloride Flush 3 ML SYRINGE IVFLUSH ×3 (08:03→20:34)
--- NOTE | 2022-09-20 10:06 | MHC.CM.PN ---
Addendum entered by Nasrin Rodriguez 09/20/22 16:17: No discharge today. Neuro consult complete. MRI CVA+. Patient has been changed from OBS to INPT today. IMM delivered 09/20/22. Addendum entered by Nasrin Rodriguez 09/20/22 11:31: Per MD rounds a Neuro consult has been ordered. Patient may discharge today pending Neuro eval. Original Note: DAMARI 09/20/22 Female 86 DX CVA DP home self care Patient will arrange transport. She is independent with assistive devices. Pt uses a cane indoors and a walker outside. She uses a shower bench for safety. She lives with her , he is disabled. Private pay services for home health travel ot 2hr x 3 days a week. Patients spouse has Parkinsons. [facility] Dtr or private pay provide transport to appointments.
[2022-09-20 10:48] LABS: Appearance Urine Clear; Color Urine Yellow; Glucose Urine UA Negative (Negative); Leukocyte Esterase Urine Negative (Negative); Nitrite Urine Negative (Negative); UMIC TRIGGER UACC YES; Urine Blood Negative (Negative); Urine Ketones Negative (Negative); Urine Protein 100 (2+) mg/dL (Neg-Trace)
[2022-09-20 10:51] LABS: Bacteria Urine None Seen (None Seen); Hyaline Casts Urine 0-2 /LPF (0-2); RBC Urine 0-2 /HPF (0-2); WBC Urine 0-5 /HPF (0-5)
--- NOTE | 2022-09-20 14:15 | P.CNNE_ITS ---
History of Present Illness Data of Consult Service Date: 09/20/22 Primary Care Provider: Devin Hall MD [facility] Reason for consult: Stroke 86 years old woman with hypertension who came to hospital with an episode of right facial numbness and right arm and hand numbness and weakness. The symptoms lasted for about 5 minutes. She had 1 similar episode a few days ago lasting for a minute or so and during that episode her speech was also affected. She had difficulty seeing which she wanted to say. There was no associated confusion or headache. There was no visual symptom. Review of Systems Review of Systems: No recent cold or flu-like illness headache chest pain palpitation or trauma. [facility] Past Medical History Medical History Anemia Aortic stenosis Biliary colic Hyperlipidemia Hypertension Hypertension Functional capacity: uses cane/walker Family History Family History Father Heart disease Mother No problems noted. Brother Heart disease Surgical History Surgical History Hammertoe, bilateral History of cholecystectomy Total knee replacement status Social History Social History Household Members: Spouse Housing: House Do you presently have visiting nurse or other home services: No Unable to assess alcohol history related to: Unknown Alcohol intake: current Alcohol intake frequency: does not drink Alcohol type: hard liquor Patient Tobacco Use Status: Former Tobacco user Quit Date: 1981 Tobacco use type: Cigarette Years Smoked: 25 e-Cigarette/Vaping Use: Never Used Second Hand Smoke Exposure: No Advance Directives Date on File: 02/17/21 service: No Current occupational status: retired Cognitive needs: No Hearing needs: No Vision needs: No Meds Allergies Allergy/AdvReac Type Severity Reaction Status Date / Time No Known Drug Intolerances Allergy Unknown NOT Verified 06/20/22 13:58 APPLICABLE Active Medications: Current Medications Acetaminophen (Acetaminophen 325 Mg Tablet) 650 mg PO Q6H PRN PRN Reason: Pain, Mild (Pain Scale 1-3) Last Admin: 09/20/22 05:27 Dose: 650 mg Aspirin (Aspirin 81 Mg Tab.Chew) 81 mg PO BEDTIME [facility] Last Admin: 09/19/22 21:14 Dose: 81 mg Atorvastatin Calcium (Atorvastatin Calcium 10 Mg Tablet) 10 mg PO DAILY@1700 [facility] Last Admin: 09/19/22 16:57 Dose: 10 mg Calcium Polycarbophil (Calcium Polycarbophil Tablet) 1 tab PO BEDTIME [facility] Last Admin: 09/19/22 21:14 Dose: 1 tab Carvedilol (Carvedilol 3.125 Mg Tablet) 3.125 mg PO BID [facility]; Protocol Last Admin: 09/20/22 08:03 Dose: 3.125 mg Docusate Sodium (Docusate Sodium 100 Mg Capsule) 100 mg PO DAILY PRN PRN Reason: Constipation Enoxaparin Sodium (Enoxaparin Sodium 30 Mg/0.3 Ml Syringe) 30 mg SUBCUT Q24H [facility] Last Admin: 09/19/22 16:57 Dose: 30 mg Hydrochlorothiazide (Hydrochlorothiazide 25 Mg Tablet) 25 mg PO DAILY [facility] Lorazepam (Lorazepam 0.5 Mg Tablet) 0.5 mg PO DAILY PRN PRN Reason: Anxiety Nifedipine (Nifedipine Er 90 Mg Tab.Er.24) 90 mg PO DAILY [facility]; Protocol Last Admin: 09/20/22 11:05 Dose: Not Given Omeprazole (Omeprazole 20 Mg Capsule.Dr) 20 mg PO DAILY@0630 [facility] Last Admin: 09/20/22 05:28 Dose: 20 mg Pharmacy Consult (Consult Rx Perform Med Rec) 1 each MISCELLANE ONCE PRN PRN Reason: Consult order Sodium Chloride (0.9 % Sodium Chloride Flush 3 Ml Syringe) 3 ml IVFLUSH QSHIFT [facility] Last Admin: 09/20/22 08:03 Dose: 3 ml Home Medications Medication Instructions Recorded Confirmed Last Taken Type ergocalciferol (vitamin D2) 1,250 1,250 mcg PO Q14D 09/30/20 09/19/22 09/13/22 History mcg (50,000 unit) capsule aspirin 81 mg chewable tablet 81 mg PO BEDTIME 02/16/21 09/19/22 09/18/22 History nifedipine 90 mg tablet,extended 90 mg PO DAILY 02/16/21 09/19/22 09/19/22 History release 24 hr psyllium husk 0.52 gram capsule 1.04 g PO BEDTIME 02/16/21 09/19/22 09/18/22 History (Metamucil) carvedilol 6.25 mg tablet 1 tab PO BID 01/02/22 09/19/22 09/19/22 History chlorthalidone 25 mg tablet 25 mg PO DAILY 02/26/22 09/19/22 09/19/22 History lorazepam 0.5 mg tablet 0.5 mg PO DAILY PRN Anxiety 09/19/22 09/19/22 Unknown History simvastatin 20 mg tablet 20 mg PO DAILY@1700 09/19/22 09/19/22 09/18/22 History Physical Exam Vital Signs: Vital Signs: Last Vital Signs Temp 97.2 F 09/20/22 10:51 Pulse 55 09/20/22 10:51 Resp 20 09/20/22 10:51 BP 188/70 H 09/20/22 10:51 Pulse Ox 99 09/20/22 10:51 O2 Del Method 09/20/22 10:51 BMI result Body Mass Index 22.6 Neuro: Other: She was alert and awake with normal spontaneity of speech fluency comprehension and affect. Face was symmetrical. Visual jackson are full. Pronator drift was difficult to determine because of significant right shoulder issues. She did not notice any new weakness. Deep tendon reflexes were trace to absent with flexor plantars. Speech was okay. Results Labs CBC & Chem 7: 09/19/22 13:19 09/20/22 05:55 Labs: BMP 09/20/22 05:55 Sodium 139 Potassium 4.8 Chloride 108 Carbon Dioxide 21 L BUN 24 H Creatinine 0.95 Calcium 8.9 D Urine 09/20/22 Range/Units 10:00 Urine Color Yellow Urine Appearance Clear Urine pH 6.0 (5.0-9.0) Ur Specific [place] 1.020 (1.005-1.025) Urine Protein 100 (2+) H (Neg-Trace) mg/dL Urine Glucose (UA) Negative (Negative) mg/dL MRI of brain revealed a possible small left pontine area of restricted diffusion with extensive microvascular type of pathology noted in brainstem and white matter otherwise. Transthoracic echocardiogram did not reveal any significant abnormality. Blood pressure was high. Assessment and Plan (1) Cerebral infarction: Status: Acute 86 years old woman with uncontrolled hypertension extensive atherothrombotic related small-vessel disease affecting deep areas of white matter periventricular areas in brainstem. During last few days she had couple of episodes suggestive of transient ischemic attacks related to similar pathology. She likely has significant small and medium sized blood vessel atherosclerotic and atherothrombotic disease. There is another lesion in left side of michelle that might explain at least 1 of the episodes. I noticed that she was wearing Holter for possibility of atrial fibrillation. I would also recommend CTA of brain and neck to look at her vasculature. In the meantime, I recommend baby aspirin daily with clopidogrel 75 mg daily, blood pressure control and statin. She was educated about significant pathology noted on her brain MRI and the value of control of vascular risk factors more importantly blood pressure (2) Cerebral microvascular disease: Status: Acute Time Spent With Patient Time: Total time managing care of this patient today ____ minutes. Procedures Date of Service Date of Service: 09/20/22
[2022-09-20] MEDS: hydroCHLOROthiazide 25 MG TABLET PO (14:19)
--- NOTE | 2022-09-20 14:28 | HO.PM.IMPN ---
Subjective Subjective Date of Service: 09/20/22 Interval History: seen and examined this morning follow up for right side weakness no recurrance of symptoms feeling well today Review of Systems Review of Systems: Yes all other systems are reviewed and are negative Constitutional Constitutional: Denies chills and Denies fever(s) Cardiovascular Cardiovascular: Denies chest pain, Denies palpitations and Denies dyspnea Respiratory Respiratory: Denies cough and Denies dyspnea Gastrointestinal Gastrointestinal: Denies abdominal pain Endocrine Endocrine: Denies palpitations Physical Exam Vital Signs: Vital Signs: Last Vital Signs Temp 97.2 F 09/20/22 10:51 Pulse 55 09/20/22 10:51 Resp 20 09/20/22 10:51 BP 170/72 H 09/20/22 14:22 Pulse Ox 99 09/20/22 10:51 O2 Del Method 09/20/22 10:51 BMI result Body Mass Index 22.6 Const: General: cooperative, comfortable, alert and awake Nutritional Appearance: average body habitus Orientation/consciousness: patient oriented x3 Eyes: Pupils: Equal, round and reactive pupils present Resp: Effort & Inspection: normal respiratory effort and able to speak in complete sentences Auscultation: diminished lung sounds Cardio: Rate: regular rate Heart sounds: Murmur heart sound present GI: Inspection: No distended Palpation (GI): Soft to palpation and nontender Neuro: General: patient oriented x3, moves all extremities and CN's II-XI intact bilaterally Cranial nerves: Yes Equal, round and reactive pupils present and Yes Midline tongue present Cognition (Neuro): normal cognition Motor exam (neuro): Pronator motor function not present Extrem: Other: right arm mobility limited by chronic pain/rotator cuff dysfunction Objective Data Active Medications Acetaminophen (Acetaminophen 325 Mg Tablet) 650 mg PO Q6H PRN PRN Reason: Pain, Mild (Pain Scale 1-3) Last Admin: 09/20/22 05:27 Dose: 650 mg Documented By: FORTUNATO Aspirin (Aspirin 81 Mg Tab.Chew) 81 mg PO BEDTIME [facility] Last Admin: 09/19/22 21:14 Dose: 81 mg Documented By: FORTUNATO Atorvastatin Calcium (Atorvastatin Calcium 10 Mg Tablet) 10 mg PO DAILY@1700 [facility] Last Admin: 09/19/22 16:57 Dose: 10 mg Documented By: N-ADAMARIS Calcium Polycarbophil (Calcium Polycarbophil Tablet) 1 tab PO BEDTIME [facility] Last Admin: 09/19/22 21:14 Dose: 1 tab Documented By: FORTUNATO Carvedilol (Carvedilol 3.125 Mg Tablet) 3.125 mg PO BID [facility]; Protocol Last Admin: 09/20/22 08:03 Dose: 3.125 mg Documented By: TAMARA Clopidogrel Bisulfate (Clopidogrel Bisulfate 75 Mg Tablet) 75 mg PO DAILY [facility] Docusate Sodium (Docusate Sodium 100 Mg Capsule) 100 mg PO DAILY PRN PRN Reason: Constipation Enoxaparin Sodium (Enoxaparin Sodium 30 Mg/0.3 Ml Syringe) 30 mg SUBCUT Q24H [facility] Last Admin: 09/19/22 16:57 Dose: 30 mg Documented By: RACHEL Hydrochlorothiazide (Hydrochlorothiazide 25 Mg Tablet) 25 mg PO DAILY [facility] Last Admin: 09/20/22 14:19 Dose: 25 mg Documented By: TAMARA Lorazepam (Lorazepam 0.5 Mg Tablet) 0.5 mg PO DAILY PRN PRN Reason: Anxiety Nifedipine (Nifedipine Er 90 Mg Tab.Er.24) 90 mg PO DAILY [facility]; Protocol Last Admin: 09/20/22 11:05 Dose: Not Given Documented By: TAMARA Non-Admin Reason: Physician Held Med Omeprazole (Omeprazole 20 Mg Capsule.Dr) 20 mg PO DAILY@0630 [facility] Last Admin: 09/20/22 05:28 Dose: 20 mg Documented By: FORTUNATO Pharmacy Consult (Consult Rx Perform Med Rec) 1 each MISCELLANE ONCE PRN PRN Reason: Consult order Sodium Chloride (0.9 % Sodium Chloride Flush 3 Ml Syringe) 3 ml IVFLUSH QSHIFT [facility] Last Admin: 09/20/22 08:03 Dose: 3 ml Documented By: TAMARA Labs CBC & Chem 7: 09/19/22 13:19 09/20/22 05:55 Labs: Laboratory Results - last 24 hr 09/19/22 09/20/22 09/20/22 14:08 05:55 10:00 Anion Gap 15 Estim Creat Clear Calc 40.5 Estimated GFR 56 Random Glucose 84 Calcium 8.9 D Triglycerides 147 Cholesterol 141 LDL Cholesterol, Calc 71 HDL Cholesterol 41 Urine Color Yellow Urine Appearance Clear Urine pH 6.0 Ur Specific [place] 1.020 Urine Protein 100 (2+) H Urine Glucose (UA) Negative Urine Ketones Negative Urine Blood Negative Urine Nitrite Negative Ur Leukocyte Esterase Negative Urine RBC 0-2 Urine WBC 0-5 Ur Squamous Epith Cells 11-20 Urine Bacteria None Seen Hyaline Casts 0-2 Influenza Type A (PCR) NEGATIVE Influenza Type B (PCR) NEGATIVE RSV RNA Qual (PCR) NEGATIVE SARS-CoV-2 RNA (RT-PCR) NEGATIVE Assessment and Plan (1) Cerebral microvascular disease: Status: Acute (2) Hypertension: Status: Acute Plan This is an 86-year-old female with history of hypertension, hyperlipidemia, CKD, aortic stenosis who presents emergency department with 5 minutes of right-sided facial numbness, right upper extremity weakness and word-finding difficulties Right-sided weakness Possible TIA versus stroke Brain CT negative for acute changes Symptoms completely resolved, not a candidate for tPA Carotid US - no hemodynamically significant stenosis Brain MRI showing artifact vs acute to subacute infarct within the left ventral michelle and global cerebral volume loss and advanced chronic microangiopathy increase lipitor to 40 mg LDL 71 seen by neuro - rec to continue asa, add plavix and check cta head/neck Kimberly on CKD3 resolved Hyperkalemia, mild resolved HTN will continue nifedipine, lower dose of baseline coreg due to bradycardia (asymptomatic) resume formulary equivalent for chlorthalidone follow bp closely HLD continue statin dvt ppx - lovenox, renal dosed PT rec home with PT services attending - dr. velásquez Time Spent With Patient Time: Total time managing care of this patient today ____ minutes. Quality Stroke Does the patient have a stroke diagnosis?: No VTE Prior VTE?: No VTE Risk Level:: Medical - moderate - high VTE Device Contraindication: N/A - Device Ordered VTE Drug Contraindication: N/A - Med Ordered
[2022-09-20] MEDS: Clopidogrel Bisulfate 75 MG TABLET PO (15:44)
[2022-09-20] MEDS: iohexoL 350 MG/ML 100 ML INFUS..BTL IV (17:28)
[2022-09-20] MEDS: Atorvastatin Calcium 40 MG TABLET PO (17:52)
[2022-09-20] MEDS: calcium polycarbophiL TABLET 1 TAB PO (20:34)
[2022-09-20] MEDS: Aspirin 81 MG TAB.CHEW PO (20:34)
[2022-09-21] VITALS: PULSE 51; RESP 20
[2022-09-21] MEDS: Acetaminophen 325 MG TABLET 650 MG PO (02:38)
[2022-09-21 02:46] VITALS: BP 182/79; PULSE 54; RESP 18; TEMP 36.6; O2SAT 96
[2022-09-21] MEDS: Omeprazole 20 MG CAPSULE.DR PO (06:27)
[2022-09-21 07:46] VITALS: BP 175/78; PULSE 53; RESP 17; TEMP 36.7; O2SAT 98
[2022-09-21] MEDS: 0.9 % Sodium Chloride Flush 3 ML SYRINGE IVFLUSH ×2 (08:26→15:52)
[2022-09-21] MEDS: hydroCHLOROthiazide 25 MG TABLET PO (08:26)
[2022-09-21] MEDS: Clopidogrel Bisulfate 75 MG TABLET PO (08:26)
[2022-09-21] MEDS: NIFEdipine ER 90 MG TAB.ER.24 PO (08:27)
[2022-09-21] MEDS: carvediloL 3.125 MG TABLET PO (08:27)
[2022-09-21] MEDS: hydrALAZINE HCl 10 MG TABLET PO ×2 (08:27→15:51)
--- NOTE | 2022-09-21 08:53 | MHC.CM.PN ---
Patient has been seen by Neurology. She is being worked up for etiology CVA. DP Home self care. Patient will arrange for transportation home at discharge.
[2022-09-21 12:00] VITALS: BP 159/78; PULSE 56; RESP 18; TEMP 36.7; O2SAT 98
--- NOTE | 2022-09-21 13:44 | MHC.CM.PN ---
IMM 09/20/22 Per MD rounds patient may need home PT. Preferences were obtained and referral placed. [facility] is following for discharge.
[2022-09-21 14:40] VITALS: BP 159/78; PULSE 56; O2SAT 98
[2022-09-21 15:52] VITALS: BP 170/68; PULSE 56; RESP 18; TEMP 36.7; O2SAT 98
--- NOTE | 2022-09-21 16:33 | P.DS_ITS ---
DS: Providers Provider Date of Service: 09/21/22 Date of admission: 09/20/22 14:34 Date of discharge: 09/21/22 Primary care physician: Devin Hall MD Consults: 09/19/22 16:25 Consult to Neurology Routine Consulting Provider: Lonnie Mooney Reason for consultation: word finding difficulty, right side weakness Has provider been notified: No Attending physician on discharge: Trent Chadwick Discharging clinician: Elizabeth Villagomez DS: Diagnosis Discharge Diagnosis (1) Cerebral microvascular disease: Status: Acute (2) Hypertension: Status: Acute DS: Summary Hospital Course Hospital Course: From H&P on day of admission ?This is an 86-year-old female with history of hypertension, hyperlipidemia who presents to the emergency department today after an episode of word-finding difficulty and left-sided weakness.? Patient was in her usual state of health when she was sitting down watching TV and began noticing a strange sensation.? She began having numbness and tingling the right side of her face as well as her right upper extremity.? In addition she had word-finding difficulties.? The symptoms started at approximately 11:00 o'clock and lasted for 5 minutes.? Her symptoms then completely resolved.? She did not notice any vision changes or difficulty with her lower extremities were swallowing.? She has had no recurrence of her symptoms today, she did have a similar episode 1 week ago when she was talking to her sister on the phone and had word-finding difficulties for approximately 2 minutes.? Upon arrival to the emergency department her symptoms had completely resolved.? Brain CT was obtained and showed extensive periventricular white matter gliosis consistent with chronic small-vessel ischemic changes, no acute changes.? The decision was made to admit her overnight for observation and further workup. acute left pontine stroke symptoms had resolved prior to arrival in the emergency department brain CT was obtained and showed no acute intracranial abnormality. There is extensive periventricular white matter changes consistent with chronic small vessel ischemic changes. MRI of the brain showed or defect versus an acute to subacute infarct within the left ventral michelle. No mass effect and no hemorrhagic transformation. Carotid ultrasound showing no hemodynamically significant stenosis. CTA of the head showed no additional changes. No acute arterial occlusions and no significant arterial stenosis intracranially. She was seen in consultation by Neurology who recommended to add Plavix daily to her baby aspirin. she was started on Atorvastatin 40 mg daily. LDL was 71. She was seen in consultation by Physical therapy who recommended home physical therapy services but these were unable to be set up. she was able to ambulate independently and is comfortable returning home without services. she will discuss outpatient physical therapy with her PCP. recommend close monitoring of liver function testing Hypertension. Blood pressure noted to be elevated. Dose of Coreg was decreased due to bradycardia. She was started on hydralazine 10 mg t.i.d.. She is recommended to have close follow-up with her primary care provider to up titrate this as needed to achieve adequate blood pressure control. She preferred to return home this evening with plan for outpatient follow-up with PCP. She is agreeable to monitoring her blood pressure at home daily. Acute kidney injury superimposed on chronic kidney disease Stage III. Cr eatinine initially 1.44 on arrival. Chlorthalidone was placed on hold and her creatinine improved. Chlorthalidone has been resumed due to elevated blood pressure. Recommend close monitoring of renal function Time Spent with Patient Time attestation: Total time managing care of this patient today ____ minutes. Discharge coordination time: Greater than 30 minutes Quality: Safe Use of Opioids Does Pt have an Active Cancer Diagnosis on the Problem List?: No Quality: Stroke Does the patient have a stroke diagnosis?: Yes Reason for No Anti-thrombotic at DC: N/A - Med Ordered Reason for No Anticoagulant at DC: N/A - Med Ordered Reason Not Initiating IV-Tpa: Not indicated Reason for No Anti-thrombotic by Day Two: N/A - Med Ordered Reason for No Statin at DC: N/A - Med Ordered Physical Exam Vital Signs: Vital Signs: Last Vital Signs Temp 98.0 F 09/21/22 15:52 Pulse 56 09/21/22 15:52 Resp 18 09/21/22 15:52 BP 170/68 H 09/21/22 15:52 Pulse Ox 98 09/21/22 15:52 O2 Del Method 09/21/22 15:52 BMI result Body Mass Index 22.6 Const: General: cooperative, comfortable, alert and awake Nutritional Appearance: average body habitus Orientation/consciousness: patient oriented x3 Eyes: Pupils: Equal, round and reactive pupils present Resp: Effort & Inspection: normal respiratory effort and able to speak in complete sentences Auscultation: diminished lung sounds Cardio: Rate: regular rate Heart sounds: Murmur heart sound present GI: Inspection: No distended Palpation (GI): Soft to palpation and nontender Neuro: General: patient oriented x3, moves all extremities and CN's II-XI intact bilaterally Cranial nerves: Yes Equal, round and reactive pupils present and Yes Midline tongue present Cognition (Neuro): normal cognition Motor exam (neuro): Pronator motor function not present Extrem: Other: right arm mobility limited by chronic pain/rotator cuff dysfunction DS: Data Data Completed and Pending Completed studies during hospitalization [Text1]: Procedures Dilation of Common Bile Duct, Via Natural or Artificial Opening Endoscopic (01/02/22) Resection of Gallbladder, Percutaneous Endoscopic Approach (01/02/22) Discharge Plan Discharge Anticipated Discharge Date/Time: 09/21/22 16:21 Patient Disposition: Home, Self-Care Discharge Diagnosis: acute stroke elevated blood pressure Referrals: Devin Hall MD [Primary Care Provider] - 1 Week Discharge Medications: New atorvastatin 40 mg Tablet 40 mg PO DAILY@1700 30 Days Qty: 30 0RF carvedilol 3.125 mg Tablet 3.125 mg PO BID 30 Days Qty: 60 0RF Protocol: Hold for SBP/HR < HOLD for SBP < : 90 HOLD for HR < : 60 hydralazine 10 mg Tablet 10 mg PO TID 30 Days Qty: 90 0RF Protocol: Hold for SBP< HOLD for SBP < : 90 clopidogrel 75 mg Tablet 75 mg PO DAILY 30 Days Qty: 30 0RF Continued pantoprazole 40 mg tablet,delayed release (DR/EC) 40 mg PO DAILY@0630 Qty: 90 8RF nifedipine 90 mg tablet extended release 24hr 90 mg PO DAILY aspirin 81 mg Tablet,Chewable 81 mg PO BEDTIME psyllium husk [Metamucil] 0.52 gram Capsule 1.04 g PO BEDTIME lorazepam 0.5 mg Tablet 0.5 mg PO DAILY PRN (Reason: Anxiety) ergocalciferol (vitamin D2) 1,250 mcg (50,000 unit) capsule 1,250 mcg PO Q14D chlorthalidone 25 mg tablet 25 mg PO DAILY Discontinued carvedilol 6.25 mg tablet 1 tab PO BID simvastatin 20 mg tablet 20 mg PO DAILY@1700 Discharge Orders: Discharge Order (Routine); Ordered 09/21/22 Ordered By: Elizabeth Villagomez Activity on Discharge: As tolerated Stand Alone Forms: Patient Portal Discharge page Care Plan Goals: see below Health Concerns: acute left pontine stroke elevated blood pressure GERONIMO on CKD Plan of Treatment: for stroke - you have been started on Plavix in addition to aspirin. Monitor for signs of bleeding. Elevated blood pressure. Dose of Coreg was decreased to 3.125, please take new dose. hydralazine has been added to your regimen for better blood pressure control. Please take as prescribed monitor blood pressure daily you statin has been changed to atorvastatin, Liver function tests should be monitored with higher dose of statin. do not take simvastatin. kidney function was elevated somewhat on admission, it has improved to baseline, recommend close monitoring of kidney function while you are taking chlorthalidone Assessment: 86-year-old female who presents to the emergency department with right-sided weakness and facial numbness found to have acute left pontine stroke Discharge Date/Time: 09/21/22 17:32
== END 2022-09-21 17:32 | disposition home or self-care (01) | DRG 65 ==
LOC: HO.ED 15:33 → HO.EDOVER 16:40 → HO.IMC 19:06
PROVIDERS: Admitting Provider Physician Assistant Medical; Emergency Provider Emergency Medicine Emergency Medical Services; PCP Internal Medicine; Visit Provider Physician Assistant Medical
DX: I63.89 Other cerebral infarction (principal); N17.9 Acute kidney failure, unspecified; R29.700 NIHSS score 0; R47.01 Aphasia; I67.2 Cerebral atherosclerosis; R00.1 Bradycardia, unspecified; G83.21 Monoplegia of upper limb affecting right dominant side; E78.5 Hyperlipidemia, unspecified; N18.30 Chronic kidney disease, stage 3 unspecified; E87.5 Hyperkalemia; I12.9 Hypertensive chronic kidney disease with stage 1 through stage 4 chronic kidney disease, or unspecified chronic kidney disease; Z79.82 Long term (current) use of aspirin; Z79.899 Other long term (current) drug therapy
CPT/HCPCS: 0241U; 36415; 70450; 70496; 70551; 71045; 80048; 80061; 80076; 81001; 82077; 82550; 84484; 85025; 85610; 85730; 93005; 93880; 97110; 97161; 99222; 99285; J1650; Q9967

== ENCOUNTER 2022-10-07 19:56 | Observation (INO) | payer MEDICARE, SELFPAY ==
--- NOTE | ~2022-10-07 | XR_ITS ---
EXAMINATION: XR CHEST CLINICAL INFORMATION: Shortness of breath. COVID positive. COMPARISON: Chest radiograph done on 09/19/2022. TECHNIQUE: Frontal view of the chest was obtained. FINDINGS: Persistent stable right infrahilar soft tissue fullness is present, possibly represent pulmonary vasculature and less likely to be mass or lymph node. Both lungs are mildly hyperinflated, otherwise appears unremarkable. Mild blunting of bilateral lateral CP angles are present, unchanged. The cardiac mediastinal silhouette is within normal limit. The visualized upper abdomen is unremarkable. XR/XR chest 1V IMPRESSION: 1. Persistent stable asymmetric right infrahilar soft tissue fullness, unchanged since 09/19/2022. 2. No radiographic evidence of COVID pneumonia.
[2022-10-07 20:04] VITALS: BP 140/65; BP 164/70; PULSE 70; PULSE 78; RESP 16; TEMP 36.9; O2SAT 97; O2SAT 99; BMI 26.7
--- NOTE | 2022-10-07 20:11 | ED_ITS ---
HPI - SOB/Dyspnea General Chief Complaint: Fever Stated Complaint: covid + SOB Time Seen by Provider: 10/07/22 20:01 Source: patient Mode of arrival: EMS Limitations: no limitations History of Present Illness HPI Narrative: Patient history of hypertension aortic stenosis hyperlipidemia already been vaccinated against COVID been having low-grade fever headache body aches and cough for last 48 hours checked for the COVID at home which was positive, patient arrived with saturation 97% at room air patient's been admitted to the hospital with COVID 2 days ago Related Data Home Medications Medication Instructions Recorded Confirmed ergocalciferol (vitamin D2) 1,250 1,250 mcg PO Q14D 09/30/20 09/24/22 mcg (50,000 unit) capsule aspirin 81 mg chewable tablet 81 mg PO BEDTIME 02/16/21 09/24/22 nifedipine 90 mg tablet,extended 90 mg PO DAILY 02/16/21 09/24/22 release 24 hr psyllium husk 0.52 gram capsule 1.04 g PO BEDTIME 02/16/21 09/24/22 (Metamucil) chlorthalidone 25 mg tablet 25 mg PO DAILY 02/26/22 09/24/22 lorazepam 0.5 mg tablet 0.5 mg PO DAILY PRN Anxiety 09/19/22 09/24/22 Previous Rx's Medication Instructions Recorded pantoprazole 40 mg tablet,delayed 40 mg PO DAILY@0630 #90 tabs 02/26/22 release atorvastatin 40 mg tablet 40 mg PO DAILY@1700 30 days #30 09/21/22 tabs carvedilol 3.125 mg tablet 3.125 mg PO BID 30 days #60 tabs 09/21/22 clopidogrel 75 mg tablet 75 mg PO DAILY 30 days #30 tabs 09/21/22 hydralazine 10 mg tablet 10 mg PO TID 30 days #90 tabs 09/21/22 benzonatate 200 mg capsule 200 mg PO TID PRN cough #20 caps 10/07/22 Allergies Allergy/AdvReac Type Severity Reaction Status Date / Time No Known Drug Intolerances Allergy Unknown NOT Verified 06/20/22 13:58 APPLICABLE Review of Systems Review of Systems: Yes all other systems are reviewed and are negative PMFSH Past Medical History Medical History Anemia Aortic stenosis Biliary colic Hyperlipidemia Hypertension Hypertension Surgical History Hammertoe, bilateral History of cholecystectomy Total knee replacement status Family History Family History Father Heart disease Mother No problems noted. Brother Heart disease Social History Social History Household Members: Spouse Housing: House Do you presently have visiting nurse or other home services: No Unable to assess alcohol history related to: Unknown Alcohol intake: current Alcohol intake frequency: does not drink Alcohol type: hard liquor Patient Tobacco Use Status: Former Tobacco user Quit Date: 1981 Tobacco use type: Cigarette Years Smoked: 25 e-Cigarette/Vaping Use: Never Used Second Hand Smoke Exposure: No Advance Directives: Yes Advance Directives Information Provided: No Advance Directives on File: No Advance Directives Date on File: 02/17/21 service: No Current occupational status: retired Cognitive needs: No Hearing needs: No Vision needs: No Physical Exam Vital Signs: Vital Signs: Last Vital Signs Temp 98.3 F 10/08/22 00:12 Pulse 72 10/08/22 00:12 Resp 16 10/08/22 00:12 BP 155/71 H 10/08/22 00:12 Pulse Ox 99 10/08/22 00:12 O2 Del Method 10/08/22 00:12 BMI result Body Mass Index 26.7 Appearance: Alert. Oriented X3. No acute distress. Eyes: PERRLA, No Nystagmus ENT: Pharynx normal. Oral Mucosa moist Neck: Normal inspection. Neck supple. CVS: Normal heart rate and rhythm. Pulses normal. Respiratory: No respiratory distress. Equal air entry bilateral, no wheezing/rales/rhonchi Abdomen: Soft and nontender. Bowel sounds are present, no mass palpable, no CVA tenderness Skin: Skin warm and dry. Normal skin color. Normal skin turgor. Extremities: No lower extremity edema. No calf tenderness Neuro: Oriented X 3. No motor deficit. No sensory deficit.No cerebellar signs , cranial nerves II-XII intact Medications Administered Discontinued Medications Generic Name Dose Route Start Last Admin Trade Name Freq PRN Reason Stop Dose Admin Benzonatate 100 mg 10/07/22 21:02 10/07/22 21:44 Benzonatate 100 Mg Capsule PO 10/07/22 21:03 100 mg ONCE ONE Administration Medical Decision Making Medical Decision Making [facility] Narrative: Is COVID-19 chest x-ray negative saturating 97% room air lab workup stable discharge patient home advised for supportive treatment Lab Data [facility] Lab Attestation statement: I reviewed the patient's lab results. 10/07/22 20:43 10/07/22 20:43 Labs: Lab Results 10/07/22 10/07/22 10/07/22 Range/Units 20:43 20:43 20:43 WBC 6.7 (4.8-10.8) X10*3/uL RBC 3.65 L (4.20-5.50) X10*6/uL Hgb 11.2 L (12.0-16.0) g/dl Hct 33.2 L (37.0-47.0) % MCV 91.0 (80.0-98.0) fL MCH 30.7 (27.0-33.0) pg MCHC 33.7 (31.0-35.0) g/dl RDW 12.6 (11.0-16.0) % Plt Count 179 (160-400) X10*3/uL MPV 9.2 L (9.4-12.3) fL Immature Gran % (Auto) 0.3 (0.0-0.4) % Neut % (Auto) 83.0 H (45-73) % Lymph % (Auto) 6.5 L (20-40) % [place] % (Auto) 9.7 (2-11) % Eos % (Auto) 0.1 (0-4) % Baso % (Auto) 0.4 (0-2) % Lymph # (Auto) 0.4 L (1.2-4.9) X10*3/uL [place] # (Auto) 0.7 (0.1-1.2) X10*3/uL Eos # (Auto) 0.0 (0.0-0.4) X10*3/uL Baso # (Auto) 0.0 (0.0-0.2) X10*3/uL Abs Immat Gran (auto) 0.02 (0.00-0.03) X10*3/uL Absolute Neuts (auto) 5.6 (2.0-8.3) x10*3/uL Absolute Nucleated RBC 0.000 (0.0-0.012) X10*3/uL Nucleated RBC % (auto) 0.0 (0.0-0.2) /100WBC Sodium 142 (135-145) mmol/L Potassium 4.1 (3.3-5.1) mmol/L Chloride 109 H (96-108) mmol/L Carbon Dioxide 23 (22-29) mmol/L Anion Gap 14 (12-20) BUN 23 H (9-16) mg/dL Creatinine 1.22 (0.5-1.4) mg/dL Estim Creat Clear Calc 27.7 Estimated GFR 42 Random Glucose 110 (60-115) mg/dL Calcium 9.2 (8.4-10.2) mg/dL Total Bilirubin 0.5 (0.0-1.0) mg/dL AST 16 (5-31) U/L ALT 13 (0-31) U/L Alkaline Phosphatase 104 (39-117) U/L Troponin I High Sens 12.1 D (<3.5-17.0) ng/L B-Natriuretic Peptide (<100) pg/mL Total Protein 6.6 (6.5-8.0) g/dL Albumin 4.1 (3.5-5.0) g/dL 10/07/22 Range/Units 20:43 WBC (4.8-10.8) X10*3/uL RBC (4.20-5.50) X10*6/uL Hgb (12.0-16.0) g/dl Hct (37.0-47.0) % MCV (80.0-98.0) fL MCH (27.0-33.0) pg MCHC (31.0-35.0) g/dl RDW (11.0-16.0) % Plt Count (160-400) X10*3/uL MPV (9.4-12.3) fL Immature Gran % (Auto) (0.0-0.4) % Neut % (Auto) (45-73) % Lymph % (Auto) (20-40) % [place] % (Auto) (2-11) % Eos % (Auto) (0-4) % Baso % (Auto) (0-2) % Lymph # (Auto) (1.2-4.9) X10*3/uL [place] # (Auto) (0.1-1.2) X10*3/uL Eos # (Auto) (0.0-0.4) X10*3/uL Baso # (Auto) (0.0-0.2) X10*3/uL Abs Immat Gran (auto) (0.00-0.03) X10*3/uL Absolute Neuts (auto) (2.0-8.3) x10*3/uL Absolute Nucleated RBC (0.0-0.012) X10*3/uL Nucleated RBC % (auto) (0.0-0.2) /100WBC Sodium (135-145) mmol/L Potassium (3.3-5.1) mmol/L Chloride (96-108) mmol/L Carbon Dioxide (22-29) mmol/L Anion Gap (12-20) BUN (9-16) mg/dL Creatinine (0.5-1.4) mg/dL Estim Creat Clear Calc Estimated GFR Random Glucose (60-115) mg/dL Calcium (8.4-10.2) mg/dL Total Bilirubin (0.0-1.0) mg/dL AST (5-31) U/L ALT (0-31) U/L Alkaline Phosphatase (39-117) U/L Troponin I High Sens (<3.5-17.0) ng/L B-Natriuretic Peptide 184 H (<100) pg/mL Total Protein (6.5-8.0) g/dL Albumin (3.5-5.0) g/dL Discharge Plan Discharge Clinical Impression: COVID-19 Patient Disposition: Home, Self-Care Instructions: COVID-19 (Coronavirus Disease 2019) (ED) Additional Instructions: Keep social distance Stay hydrated Tylenol/Motrin for fever and body ache Cough drops as prescribed Report to the ER if increased shortness of breath Prescriptions: New benzonatate 200 mg capsule 200 mg PO TID PRN (Reason: cough) Qty: 20 0RF No Action pantoprazole 40 mg tablet,delayed release (DR/EC) 40 mg PO DAILY@0630 Qty: 90 8RF nifedipine 90 mg tablet extended release 24hr 90 mg PO DAILY aspirin 81 mg Tablet,Chewable 81 mg PO BEDTIME psyllium husk [Metamucil] 0.52 gram Capsule 1.04 g PO BEDTIME lorazepam 0.5 mg Tablet 0.5 mg PO DAILY PRN (Reason: Anxiety) atorvastatin 40 mg Tablet 40 mg PO DAILY@1700 30 Days Qty: 30 0RF carvedilol 3.125 mg Tablet 3.125 mg PO BID 30 Days Qty: 60 0RF Protocol: Hold for SBP/HR < HOLD for SBP < : 90 HOLD for HR < : 60 hydralazine 10 mg Tablet 10 mg PO TID 30 Days Qty: 90 0RF Protocol: Hold for SBP< HOLD for SBP < : 90 clopidogrel 75 mg Tablet 75 mg PO DAILY 30 Days Qty: 30 0RF ergocalciferol (vitamin D2) 1,250 mcg (50,000 unit) capsule 1,250 mcg PO Q14D chlorthalidone 25 mg tablet 25 mg PO DAILY
[2022-10-07 20:48] LABS: MANUAL DIFF FLAG NO
[2022-10-07 20:50] LABS: Basophils Percent Auto 0.4 % (0-2); Eosinophils Percent Auto 0.1 % (0-4); Hematocrit 33.2 % (37.0-47.0); Hemoglobin 11.2 g/dl (12.0-16.0); Imm Gran Abs Auto 0.02 X10*3/uL (0.00-0.03); Imm Gran Pct Auto 0.3 % (0.0-0.4); Lymphocytes Absolute Auto 0.4 X10*3/uL (1.2-4.9); Lymphocytes Percent Auto 6.5 % (20-40); Mean Corpuscular HGB Conc 33.7 g/dl (31.0-35.0); Mean Corpuscular Hemoglobin 30.7 pg (27.0-33.0); Mean Platelet Volume 9.2 fL (9.4-12.3); Monocytes Absolute Auto 0.7 X10*3/uL (0.1-1.2); Monocytes Percent Auto 9.7 % (2-11); Neutrophils Absolute Auto 5.6 x10*3/uL (2.0-8.3); Platelet Count 179 X10*3/uL (160-400); Red Blood Count 3.65 X10*6/uL (4.20-5.50); Red Cell Distribution Width 12.6 % (11.0-16.0); White Blood Count 6.7 X10*3/uL (4.8-10.8)
[2022-10-07 21:05] LABS: Alanine Aminotransferase 13 U/L (0-31); Albumin Level 4.1 g/dL (3.5-5.0); Alkaline Phosphatase 104 U/L (39-117); Anion Gap 14 (12-20); Aspartate Amino Transferase 16 U/L (5-31); Bilirubin Total 0.5 mg/dL (0.0-1.0); Blood Urea Nitrogen 23 mg/dL (9-16); Calcium 9.2 mg/dL (8.4-10.2); Carbon Dioxide 23 mmol/L (22-29); Chloride 109 mmol/L (96-108); Creatinine Clr Calc Pharmacy 27.7; Estimated Glomerular Filt Rate 42; Glucose Random 110 mg/dL (60-115); Potassium 4.1 mmol/L (3.3-5.1); Sodium 142 mmol/L (135-145); Total Protein 6.6 g/dL (6.5-8.0)
[2022-10-07 21:09] LABS: B Type Natriuretic Peptide 184 pg/mL (<100)
[2022-10-07 21:12] LABS: Troponin-I High Sensitivity 12.1 ng/L (<3.5-17.0)
[2022-10-07] MEDS: Benzonatate 100 MG CAPSULE PO (21:44)
--- NOTE | 2022-10-07 22:15 | PC.NURSE ---
This RN notified by Ivory BRADFORD that pt needs a ride home. This RN and Ivory RN calling contact (daughter named Alem) however the call continues to go straight to [facility]. This RN left a message. This RN did not obtain an ambulance for transportation home as this RN and pt unsure if pt would be able to get into home. Per pt, her is not able to pick her up as he is also hospitalized. Plan to continue calling daughter in the morning for transportation home.
[2022-10-08] VITALS (12 sets, daily range): BP systolic 123–178; BP diastolic 60–90; PULSE 68–95; RESP 16–20; TEMP 36.1–38.5; O2SAT 89–99; BMI 26.7
[2022-10-08] MEDS: Acetaminophen 325 MG TABLET 650 MG PO ×3 (00:51→23:57)
--- NOTE | 2022-10-08 01:00 | PC.NURSE ---
pt c/o headche, medicated with 650mg of tylenol po
--- NOTE | 2022-10-08 08:01 | PC.NURSE ---
PT'S DAUGHTER CALLED QUESTIONING WHY ARE YOU DISCHARGING AN 86 YEAR OLD PATIENT THAT IS DEHYDRATED AND HAS A FEVER? THIS RN TOLD HER THAT HER MOTHER IS MEDICALLY CLEARED FOR DISCHARGE. THE PT'S DAUGHTER CONTINUED TO ASK THE SAME QUESTION THEN SHE STATED I'LL BE THERE . THIS RN ASKED HER FOR A TIME FRAME SHE STATED MAYBE AN HOUR . PT AWARE OF PLAN.
--- NOTE | 2022-10-08 09:35 | PC.NURSE ---
pt a+o x4, this RN went to prepare pt for discharge, pt vomiting phlegm and warm, rectal temp 101.3. Dr. Reyes aware.
--- NOTE | 2022-10-08 09:59 | PC.NURSE ---
incontinent care with complete bed change done. 2 episodes of diarrhea. pt's daughter at the bedside.
[2022-10-08] MEDS: ondansetron HCL 4 MG/2 ML VIAL IVPUSH (10:49)
--- NOTE | 2022-10-08 11:27 | PM.IMHP ---
History of Present Illness Date of Service: 10/08/22 Attending physician on admission: [facility] Chief Complaint: covid-19, fevers 86 year old female with history of hypertension, hx TIA with recent admission on 09/19/22, aortic stenosis, hyperlipidemia, CKD stage III, chronic normocytic anemia, and biliary colic s/p cholecystectomy presented to the ED with her daughter who is present at bedside for evaluation of COVID-19. The patient developed symptoms including myalgia, headache, nausea, vomtiing, dry cough yesterday and tested positive for COVID-19 at home. She developed a fever of 101 which elevated to 102 despite ibuprofen and tylenol prompting her daughter to bring her in for evaluation. She has also been weak with decreased PO tolerance. has similar symptoms. She also reports 1 episode diarrhea this am. She denies any sorethroat, congestion, loss of taste and smell, abd pain, hematemesis, hematochezia, melena, constipation, lightheadedness, shortness of breath, palpitations, or chest pain. In the ED, vital signs have been stable with the exception of 1 fever of 101.3 which was treated with Tylenol. There is no hypoxia. No leukocytosis. Stable H/H of 11.2/33.2%. Renal function baseline, electrolytes normal. CXR negative for penumonia. She has been treated benzonatate and ondansetron with some improvement in symptoms. She is vaccinated x 2 with one booster about 2-3 months ago. Review of Systems Review of Systems: General: No fevers, malaise, unintentional weight loss HEENT: No blurred vision, diplopia. No sore throat, nasal congestion, rhinorrhea, sinus pain, ear pain Cardiovascular: No chest pain, palpitations, or leg edema Respiratory: +cough. No shortness of breath, wheezing GI: +nausea, +vomiting, +diarrhea. No abdominal pain, constipation, melena, hematochezia : No dysuria, hematuria, increased urinary frequency, decreased urinary output MSK: No myalgia, back pain Neuro: No headaches, weakness, paresthesias Skin: No rashes or lesions [facility] Medical History (Updated 10/08/22 @ 11:39 by JOSH Suarez) Anemia Aortic stenosis Biliary colic Bradycardia Cerebral infarction Cerebral microvascular disease COVID-19 Hyperlipidemia Hypertension Hypertension Family History Father Heart disease Mother No problems noted. Brother Heart disease Surgical History (Updated 10/08/22 @ 11:39 by JOSH Suarez) Rosemary, bilateral History of cholecystectomy S/P laparoscopic cholecystectomy Total knee replacement status Social History Household Members: Spouse Housing: House Do you presently have visiting nurse or other home services: No Unable to assess alcohol history related to: Unknown Alcohol intake: current Alcohol intake frequency: does not drink Alcohol type: hard liquor Patient Tobacco Use Status: Former Tobacco user Quit Date: 1981 Tobacco use type: Cigarette Years Smoked: 25 e-Cigarette/Vaping Use: Never Used Second Hand Smoke Exposure: No Advance Directives: Yes Advance Directives Information Provided: No Advance Directives on File: No Advance Directives Date on File: 02/17/21 service: No Current occupational status: retired Cognitive needs: No Hearing needs: No Vision needs: No Meds Allergies Allergy/AdvReac Type Severity Reaction Status Date / Time No Known Drug Intolerances Allergy Unknown NOT Verified 06/20/22 13:58 APPLICABLE Active Medications: Current Medications Acetaminophen (Acetaminophen 325 Mg Tablet) 650 mg PO Q6H PRN PRN Reason: Pain, Mild, fever Enoxaparin Sodium (Enoxaparin Sodium 30 Mg/0.3 Ml Syringe) 30 mg SUBCUT Q24H MALOU Sodium Chloride (Ns) 1,000 mls @ 80 mls/hr IVCONT .[id number] MALOU Loperamide HCl (Loperamide Hcl 2 Mg Capsule) 2 mg PO Q4H PRN PRN Reason: Diarrhea Ondansetron HCl (Ondansetron Hcl 4 Mg/2 Ml Vial) 4 mg IVPUSH Q8H PRN PRN Reason: Nausea and Vomiting Pharmacy Consult (Consult Rx Perform Med Rec) 1 each MISCELLANE ONCE PRN PRN Reason: Consult order Sodium Chloride (0.9 % Sodium Chloride Flush 3 Ml Syringe) 3 ml IVFLUSH QSHIFT MALOU Home Medications Medication Instructions Recorded Confirmed Last Taken Type ergocalciferol (vitamin D2) 1,250 1,250 mcg PO Q14D 09/30/20 09/24/22 09/13/22 History mcg (50,000 unit) capsule aspirin 81 mg chewable tablet 81 mg PO BEDTIME 02/16/21 09/24/22 09/18/22 History nifedipine 90 mg tablet,extended 90 mg PO DAILY 02/16/21 09/24/22 09/19/22 History release 24 hr chlorthalidone 25 mg tablet 12.5 mg PO DAILY 02/26/22 09/24/22 09/19/22 History lorazepam 0.5 mg tablet 0.5 mg PO DAILY PRN Anxiety 09/19/22 09/24/22 Unknown History simvastatin 20 mg tablet 1 tab PO BEDTIME 10/08/22 Unknown History Physical Exam Vital Signs and Narrative: Vital Signs: Last Vital Signs Temp 101.3 F H 10/08/22 09:34 Pulse 88 10/08/22 10:51 Resp 20 10/08/22 10:51 BP 169/90 H 10/08/22 10:51 Pulse Ox 95 10/08/22 10:51 O2 Del Method 10/08/22 10:51 BMI result Body Mass Index 26.7 Constitutional - Awake and Alert, No apparent distress Eyes - PERRLA, EOMI Cardiovascular - S1S2, RRR, No edema Respiratory - Normal lung expansion, Normal respiratory effort, No respiratory distress, CTA bilaterally Gastrointestinal - NT / ND; +BS; No rebound or guarding Extremities - no calf tenderness bilaterally, no swelling Musculoskeletal - Normal inspection, normal ROM Skin - Warm/Dry Neurological - Alert & oriented x3, CN II-XII in tact, 5/5 strength BUE and BLE Psychological - Appropriate affect Results Labs 10/07/22 20:43 10/07/22 20:43 Labs: Laboratory Results - last 24 hr 10/07/22 10/07/22 10/07/22 20:43 20:43 20:43 MCV 91.0 MCH 30.7 MCHC 33.7 RDW 12.6 Plt Count 179 MPV 9.2 L Immature Gran % (Auto) 0.3 Neut % (Auto) 83.0 H Lymph % (Auto) 6.5 L [place] % (Auto) 9.7 Eos % (Auto) 0.1 Baso % (Auto) 0.4 Lymph # (Auto) 0.4 L [place] # (Auto) 0.7 Eos # (Auto) 0.0 Baso # (Auto) 0.0 Abs Immat Gran (auto) 0.02 Absolute Neuts (auto) 5.6 Absolute Nucleated RBC 0.000 Nucleated RBC % (auto) 0.0 Anion Gap 14 Estim Creat Clear Calc 27.7 Estimated GFR 42 Random Glucose 110 Calcium 9.2 Total Bilirubin 0.5 AST 16 ALT 13 Alkaline Phosphatase 104 Troponin I High Sens 12.1 D B-Natriuretic Peptide Total Protein 6.6 Albumin 4.1 10/07/22 20:43 MCV MCH MCHC RDW Plt Count MPV Immature Gran % (Auto) Neut % (Auto) Lymph % (Auto) [place] % (Auto) Eos % (Auto) Baso % (Auto) Lymph # (Auto) [place] # (Auto) Eos # (Auto) Baso # (Auto) Abs Immat Gran (auto) Absolute Neuts (auto) Absolute Nucleated RBC Nucleated RBC % (auto) Anion Gap Estim Creat Clear Calc Estimated GFR Random Glucose Calcium Total Bilirubin AST ALT Alkaline Phosphatase Troponin I High Sens B-Natriuretic Peptide 184 H Total Protein Albumin Imaging Radiologist's Impressions: Impressions Chest X-Ray 10/07/22 20:25 IMPRESSION: 1. Persistent stable asymmetric right infrahilar soft tissue fullness, unchanged since 09/19/2022. 2. No radiographic evidence of COVID pneumonia. Assessment and Plan (1) COVID-19: Status: Acute Plan 86 year old female with history of hypertension, hx TIA with recent admission on 09/19/22, aortic stenosis, hyperlipidemia, CKD stage III, chronic normocytic anemia, and biliary colic s/p cholecystectomy to be observed for COVID-19 symptoms including n/v with decreased PO tolerance and weakness. #COVID-19 -Tested positive at home yesterday. No hypoxia- remdesivir and IV steroids not indicated -CXR negative for pneumonia -Symptomatic management- Tylenol, benzonatate, guaifenesin, ondansetron -Gentle IVF -Clear liquid diet, advance as tolerated -PT eval given generalized weakness #HTN -Resume home meds #CKD stage III -Renal function baseline #Chronic normocytic anemia- likely r/t chronic disease -H/H baseline #Hx TIA -Continue asa, statin Do not intubate- per patient DVT prophylaxis- renally adjusted lovenox Time Spent With Patient Time: Total time managing care of this patient today ____ minutes. Quality Stroke Does the patient have a stroke diagnosis?: No VTE Prior VTE?: No VTE Risk Level:: Medical - moderate - high VTE Device Contraindication: N/A - Device Ordered VTE Drug Contraindication: N/A - Med Ordered
--- NOTE | 2022-10-08 12:07 | PHA.MEDREC ---
Pharmacy Consult ? Medication Reconciliation Pharmacy has completed the medication reconciliation.
[2022-10-08] MEDS: Clopidogrel Bisulfate 75 MG TABLET PO (12:35)
[2022-10-08] MEDS: NIFEdipine ER 90 MG TAB.ER.24 PO (12:53)
[2022-10-08 12:57] LABS: IDNOW Serial# BCCEAD1C
[2022-10-08 12:58] LABS: COVID-19 Test Positive (Negative)
--- NOTE | 2022-10-08 13:03 | PC.NURSE ---
report given to SUZETTE Flowers. pt will be transported to room 476 by transporter. pt aware of plan.
[2022-10-08] MEDS: 0.9 % Sodium Chloride 1,000 ML 80 ML IVCONT (14:30)
[2022-10-08] MEDS: Benzonatate 100 MG CAPSULE PO ×2 (15:40→20:19)
[2022-10-08] MEDS: hydrALAZINE HCl 10 MG TABLET PO ×2 (15:40→20:18)
[2022-10-08] MEDS: Atorvastatin Calcium 40 MG TABLET PO (18:17)
[2022-10-08] MEDS: carvediloL 3.125 MG TABLET PO (20:18)
[2022-10-08] MEDS: guaiFENesin 200 MG/10 ML 10 ML LIQUID PO (20:18)
[2022-10-08] MEDS: Aspirin 81 MG TAB.CHEW PO (20:19)
[2022-10-09] VITALS (7 sets, daily range): BP systolic 126–140; BP diastolic 58–67; PULSE 54–67; RESP 12–20; TEMP 36.2–36.9; O2SAT 91–98
[2022-10-09] MEDS: 0.9 % Sodium Chloride 1,000 ML 80 ML IVCONT (03:26)
[2022-10-09] MEDS: Omeprazole 20 MG CAPSULE.DR PO (06:18)
[2022-10-09 06:23] LABS: MANUAL DIFF FLAG NO
[2022-10-09 06:37] LABS: Basophils Percent Auto 0.5 % (0-2); Hematocrit 28.8 % (37.0-47.0); Hemoglobin 9.7 g/dl (12.0-16.0); Imm Gran Abs Auto 0.01 X10*3/uL (0.00-0.03); Imm Gran Pct Auto 0.3 % (0.0-0.4); Lymphocytes Percent Auto 24.9 % (20-40); Mean Corpuscular HGB Conc 33.7 g/dl (31.0-35.0); Mean Corpuscular Hemoglobin 31.3 pg (27.0-33.0); Mean Corpuscular Volume 92.9 fL (80.0-98.0); Mean Platelet Volume 9.6 fL (9.4-12.3); Monocytes Absolute Auto 0.7 X10*3/uL (0.1-1.2); Monocytes Percent Auto 17.9 % (2-11); Neutrophils Absolute Auto 2.1 x10*3/uL (2.0-8.3); Neutrophils Percent Auto 55.4 % (45-73); Platelet Count 166 X10*3/uL (160-400); Red Cell Distribution Width 12.7 % (11.0-16.0); White Blood Count 3.9 X10*3/uL (4.8-10.8)
[2022-10-09 06:56] LABS: Anion Gap 13 (12-20); Blood Urea Nitrogen 22 mg/dL (9-16); Calcium 8.3 mg/dL (8.4-10.2); Carbon Dioxide 22 mmol/L (22-29); Chloride 111 mmol/L (96-108); Creatinine Clr Calc Pharmacy 29.7; Estimated Glomerular Filt Rate 45; Glucose Random 84 mg/dL (60-115); Potassium 3.7 mmol/L (3.3-5.1); Sodium 142 mmol/L (135-145)
--- NOTE | 2022-10-09 08:42 | MHC.CM.PN ---
Patient is covid positive; CM spoke with Daughter/HCP/Mitali at [phone] and addressed [id number] with her (original to be mailed to Mitali and a copy has been placed on the chart). Patient lives in a house with her who receives 4 hours/day of assistance and this Caregiver also assists Patient PRN. Home/self care is the goal and CM has initiated and will follow for dc planning. Patient has received covid vax X4 and her PCP is Dr. Devin Hall.
[2022-10-09] MEDS: hydrALAZINE HCl 10 MG TABLET PO ×3 (09:30→21:17)
[2022-10-09] MEDS: Clopidogrel Bisulfate 75 MG TABLET PO (09:30)
[2022-10-09] MEDS: hydroCHLOROthiazide 12.5 MG TABLET PO (09:30)
[2022-10-09] MEDS: NIFEdipine ER 90 MG TAB.ER.24 PO (09:30)
[2022-10-09] MEDS: Benzonatate 100 MG CAPSULE PO ×3 (09:30→21:17)
[2022-10-09] MEDS: 0.9 % Sodium Chloride Flush 3 ML SYRINGE IVFLUSH ×3 (09:31→21:18)
[2022-10-09] MEDS: carvediloL 3.125 MG TABLET PO (09:31)
[2022-10-09] MEDS: Enoxaparin Sodium 30 MG/0.3 ML SYRINGE SUBCUT (11:01)
--- NOTE | 2022-10-09 13:20 | HO.PM.IMPN ---
Subjective Subjective Date of Service: 10/09/22 Interval History: covid ,generalised weakness Review of Systems no fevers ,no chest pain seems slwoly improving Physical Exam Vital Signs: Vital Signs: Last Vital Signs Temp 97.2 F 10/09/22 10:40 Pulse 56 10/09/22 10:40 Resp 12 10/09/22 10:40 BP 134/58 L 10/09/22 10:40 Pulse Ox 96 10/09/22 10:40 O2 Del Method 10/09/22 10:40 O2 Flow Rate 2 10/09/22 07:45 BMI result Body Mass Index 26.7 Appearance: Alert.? Oriented X3.? not in distress.? cvs: rrr, [id number]. res: air entry seems fair , no rales or wheezin abd: no rebound or guarding ,nt, bs present. ext pulses present , no cyanosis . neuro: axo3 , nonfocal. Objective Data Active Medications Acetaminophen (Acetaminophen 325 Mg Tablet) 650 mg PO Q6H PRN PRN Reason: Pain, Mild, fever Last Admin: 10/08/22 23:57 Dose: 650 mg Documented By: JELANI Aspirin (Aspirin 81 Mg Tab.Chew) 81 mg PO BEDTIME [facility] Last Admin: 10/08/22 20:19 Dose: 81 mg Documented By: CORI Atorvastatin Calcium (Atorvastatin Calcium 40 Mg Tablet) 40 mg PO DAILY@1700 [facility] Last Admin: 10/08/22 18:17 Dose: 40 mg Documented By: ANGÉLICAORRSamantha Benzonatate (Benzonatate 100 Mg Capsule) 100 mg PO TID [facility] Last Admin: 10/09/22 09:30 Dose: 100 mg Documented By: TENNILLE Carvedilol (Carvedilol 3.125 Mg Tablet) 3.125 mg PO BID [facility]; Protocol Last Admin: 10/09/22 09:31 Dose: 3.125 mg Documented By: TENNILLE Clopidogrel Bisulfate (Clopidogrel Bisulfate 75 Mg Tablet) 75 mg PO DAILY [facility] Last Admin: 10/09/22 09:30 Dose: 75 mg Documented By: TENNILLE Enoxaparin Sodium (Enoxaparin Sodium 30 Mg/0.3 Ml Syringe) 30 mg SUBCUT Q24H [facility] Last Admin: 10/09/22 11:01 Dose: 30 mg Documented By: TENNILLE Ergocalciferol (Ergocalciferol (Vitamin D2) 1,250 Mcg Capsule) 1,250 mcg PO Q14D [facility] Guaifenesin (Guaifenesin 200 Mg/10 Ml 10 Ml Liquid) 10 ml PO Q4H PRN PRN Reason: cough Last Admin: 10/08/22 20:18 Dose: 10 ml Documented By: YOGI-FARJUAN Hydralazine HCl (Hydralazine Hcl 10 Mg Tablet) 10 mg PO TID [facility]; Protocol Last Admin: 10/09/22 09:30 Dose: 10 mg Documented By: TENNILLE Hydrochlorothiazide (Hydrochlorothiazide 12.5 Mg Tablet) 12.5 mg PO DAILY [facility] Last Admin: 10/09/22 09:30 Dose: 12.5 mg Documented By: TENNILLE Loperamide HCl (Loperamide Hcl 2 Mg Capsule) 2 mg PO Q4H PRN PRN Reason: Diarrhea Lorazepam (Lorazepam 0.5 Mg Tablet) 0.5 mg PO DAILY PRN PRN Reason: Anxiety Nifedipine (Nifedipine Er 90 Mg Tab.Er.24) 90 mg PO DAILY [facility]; Protocol Last Admin: 10/09/22 09:30 Dose: 90 mg Documented By: TENNILLE Omeprazole (Omeprazole 20 Mg Capsule.Dr) 20 mg PO DAILY@0630 [facility] Last Admin: 10/09/22 06:18 Dose: 20 mg Documented By: JELANI Ondansetron HCl (Ondansetron Hcl 4 Mg/2 Ml Vial) 4 mg IVPUSH Q8H PRN PRN Reason: Nausea and Vomiting Pharmacy Consult (Consult Rx Perform Med Rec) 1 each MISCELLANE ONCE PRN PRN Reason: Consult order Sodium Chloride (0.9 % Sodium Chloride Flush 3 Ml Syringe) 3 ml IVFLUSH QSHIFT [facility] Last Admin: 10/09/22 09:31 Dose: 3 ml Documented By: TENNILLE Labs 10/09/22 06:07 10/09/22 06:07 Labs: Laboratory Results - last 24 hr 10/09/22 10/09/22 06:07 06:07 MCV 92.9 MCH 31.3 MCHC 33.7 RDW 12.7 Plt Count 166 MPV 9.6 Immature Gran % (Auto) 0.3 Neut % (Auto) 55.4 Lymph % (Auto) 24.9 Bond % (Auto) 17.9 H Eos % (Auto) 1.0 Baso % (Auto) 0.5 Lymph # (Auto) 1.0 L Bond # (Auto) 0.7 Eos # (Auto) 0.0 Baso # (Auto) 0.0 Abs Immat Gran (auto) 0.01 Absolute Neuts (auto) 2.1 Absolute Nucleated RBC 0.000 Nucleated RBC % (auto) 0.0 Anion Gap 13 Estim Creat Clear Calc 29.7 Estimated GFR 45 Random Glucose 84 Calcium 8.3 L D Assessment and Plan (1) COVID-19: Status: Acute Plan 86 year old female with history of hypertension, hx TIA with recent admission on 09/19/22, aortic stenosis, hyperlipidemia, CKD stage III, chronic normocytic anemia, and biliary colic s/p cholecystectomy to be observed for COVID-19 symptoms including n/v with decreased PO tolerance and weakness. #COVID-19 -Tested positive at home yesterday. No hypoxia- remdesivir and IV steroids not indicated -CXR negative for pneumonia -Symptomatic management- Tylenol, benzonatate, guaifenesin, ondansetron -Gentle IVF, taper oxygen -Clear liquid diet, advance as tolerated -PT eval given generalized weakness #HTN -Resume home meds #CKD stage III -Renal function baseline #Chronic normocytic anemia- likely r/t chronic disease -H/H baseline #Hx TIA -Continue asa, statin Do not intubate- per patient DVT prophylaxis- renally adjusted lovenox. inpatient need:[id number] oxygen taper , PT eval. Time Spent With Patient Time: Total time managing care of this patient today ____ minutes. Quality Stroke Does the patient have a stroke diagnosis?: No VTE Prior VTE?: No VTE Risk Level:: Medical - moderate - high VTE Device Contraindication: N/A - Device Ordered VTE Drug Contraindication: N/A - Med Ordered
[2022-10-09] MEDS: Acetaminophen 325 MG TABLET 650 MG PO (13:52)
[2022-10-09] MEDS: Atorvastatin Calcium 40 MG TABLET PO (16:22)
[2022-10-09] MEDS: Aspirin 81 MG TAB.CHEW PO (21:17)
[2022-10-10 04:00] VITALS: BP 147/63; PULSE 63; RESP 16; TEMP 36.8; O2SAT 93
[2022-10-10] MEDS: Omeprazole 20 MG CAPSULE.DR PO (06:01)
[2022-10-10 07:45] VITALS: BP 149/58; PULSE 66; RESP 20; TEMP 36.7; O2SAT 97
[2022-10-10] MEDS: Clopidogrel Bisulfate 75 MG TABLET PO (08:42)
[2022-10-10] MEDS: hydroCHLOROthiazide 12.5 MG TABLET PO (08:42)
[2022-10-10] MEDS: NIFEdipine ER 90 MG TAB.ER.24 PO (08:42)
[2022-10-10] MEDS: hydrALAZINE HCl 10 MG TABLET PO (08:42)
[2022-10-10] MEDS: guaiFENesin 200 MG/10 ML 10 ML LIQUID PO (08:42)
[2022-10-10] MEDS: 0.9 % Sodium Chloride Flush 3 ML SYRINGE IVFLUSH (08:42)
[2022-10-10] MEDS: carvediloL 3.125 MG TABLET PO (08:42)
[2022-10-10] MEDS: Benzonatate 100 MG CAPSULE PO (08:42)
--- NOTE | 2022-10-10 10:43 | P.DS_ITS ---
DS: Providers Provider Date of Service: 10/10/22 Date of admission: 10/08/22 11:19 Primary care physician: Devin Hall MD DS: Diagnosis Discharge Diagnosis (1) COVID-19: Status: Acute DS: Summary Hospital Course Hospital Course: 86 year old female with history of hypertension, hx TIA with recent admission on 09/19/22, aortic stenosis, hyperlipidemia, CKD stage III, chronic normocytic anemia, and biliary colic s/p cholecystectomy presented to the ED with her shai arianna who is present at bedside for evaluation of COVID-19. The patient developed symptoms including myalgia, headache, nausea, vomtiing, dry cough yesterday and tested positive for COVID-19 at home. She developed a fever of 101 which elevated to 102 despite ibuprofen and tylenol prompting her daughter to bring her in for evaluation. She has also been weak with decreased PO tolerance. has similar symptoms. She also reports 1 episode diarrhea this am. She denies any sorethroat, congestion, loss of taste and smell, abd pain, hematemesis, hematochezia, melena, constipation, lightheadedness, shortness of breath, palpitations, or chest pain.? In the ED, vital signs have been stable with the exception of 1 fever of 101.3 which was treated with Tylenol.? There is no hypoxia.? No leukocytosis.? Stable H/H of 11.2/33.2%.? Renal function baseline, electrolytes normal. CXR negative for penumonia. She has been treated benzonatate and ondansetron with some improvement in symptoms. She is vaccinated x 2 with one booster about 2-3 months ago. Hospital course: 86 year old female with history of hypertension, hx TIA with recent admission on 09/19/22, aortic stenosis, hyperlipidemia, CKD stage III, chronic normocytic anemia, and biliary colic s/p cholecystectomy to be observed for COVID-19 symptoms including n/v with decreased PO tolerance and weakness. [id number] positive at home day before admission. No hypoxia- remdesivir and IV steroids not indicated,CXR negative for pneumonia improved with Symptomatic management- Tylenol, benzonatate, guaifenesin, ondansetron P.o. intake improving. Chest x-ray:Persistent stable asymmetric right infrahilar soft tissue fullness, unchanged since 09/19/2022. Repeat chest imaging in 3-4 weeks with PCP outpatient. Further management as per PCP. The Pt recommended home PT. Time Spent with Patient Time attestation: Total time managing care of this patient today ____ minutes. Discharge coordination time: Greater than 30 minutes Quality: Safe Use of Opioids Does Pt have an Active Cancer Diagnosis on the Problem List?: No Quality: Stroke Does the patient have a stroke diagnosis?: No Physical Exam Vital Signs: Vital Signs: Last Vital Signs Temp 98.0 F 10/10/22 07:45 Pulse 66 10/10/22 07:45 Resp 20 10/10/22 07:45 BP 149/58 H 10/10/22 07:45 Pulse Ox 97 10/10/22 07:45 O2 Del Method 10/10/22 07:45 O2 Flow Rate 2 10/09/22 07:45 BMI result Body Mass Index 26.7 Appearance: Alert.? Oriented X3.? not in distress.? cvs: rrr, [id number]. res: air entry seems fair , no rales or wheezin abd: no rebound or guarding ,nt, bs present. ext pulses present , no cyanosis . neuro: axo3 , nonfocal. DS: Data Data Completed and Pending Completed studies during hospitalization [Text1]: Procedures Dilation of Common Bile Duct, Via Natural or Artificial Opening Endoscopic (01/02/22) Resection of Gallbladder, Percutaneous Endoscopic Approach (01/02/22) Imaging Chest x-ray: Radiologist's impression: ITS Impressions Chest X-Ray 10/07/22 20:25 IMPRESSION: 1. Persistent stable asymmetric right infrahilar soft tissue fullness, unchanged since 09/19/2022. 2. No radiographic evidence of COVID pneumonia. Discharge Plan Discharge Patient Disposition: Home Health Service Discharge Diagnosis: covid Referrals: Devin Hall MD [Primary Care Provider] - 1 Week Discharge Medications: New benzonatate 200 mg capsule 200 mg PO TID PRN (Reason: cough) Qty: 20 0RF Continued pantoprazole 40 mg tablet,delayed release (DR/EC) 40 mg PO DAILY@0630 Qty: 90 8RF nifedipine 90 mg tablet extended release 24hr 90 mg PO DAILY aspirin 81 mg Tablet,Chewable 81 mg PO BEDTIME lorazepam 0.5 mg Tablet 0.5 mg PO DAILY PRN (Reason: Anxiety) atorvastatin 40 mg Tablet 40 mg PO DAILY@1700 30 Days Qty: 30 0RF carvedilol 3.125 mg Tablet 3.125 mg PO BID 30 Days Qty: 60 0RF Protocol: Hold for SBP/HR < HOLD for SBP < : 90 HOLD for HR < : 60 hydralazine 10 mg Tablet 10 mg PO TID 30 Days Qty: 90 0RF Protocol: Hold for SBP< HOLD for SBP < : 90 clopidogrel 75 mg Tablet 75 mg PO DAILY 30 Days Qty: 30 0RF ergocalciferol (vitamin D2) 1,250 mcg (50,000 unit) capsule 1,250 mcg PO Q14D chlorthalidone 25 mg tablet 12.5 mg PO DAILY Discharge Orders: Discharge Order (Routine); Ordered 10/10/22 Ordered By: Monster Cordon Diet: Advance to usual diet Activity on Discharge: As tolerated Stand Alone Forms: Patient Portal Discharge page Activity Restrictions/Additional Instructions: Keep social distance Stay hydrated Tylenol/Motrin for fever and body ache Cough drops as prescribed Report to the ER if increased shortness of breath Care Plan Goals: Patient was admitted for COVID infection: Patient was not hypoxic, initially had fever but otherwise asymptomatic afterwards. Patient was strongly advised for self isolation for 1 week. Chest x-ray:Persistent stable asymmetric right infrahilar soft tissue fullness, unchanged since 09/19/2022. Repeat chest imaging in 3-4 weeks with PCP outpatient. Further management as per PCP. Seen by PT recommended home PT. Health Concerns: As above. Plan of Treatment: As above. Assessment: As above. Denies any new complaint of chest pain or shortness of breath or abdominal pain or fever or chills or nausea or vomiting Denies any cough Denies any weakness or numbness. Patient Instructions: COVID-19 (Coronavirus Disease 2019) (ED)
--- NOTE | 2022-10-10 10:48 | W.MHC.F2F ---
Service Date Service Date: 10/10/22 Encounter Date of encounter: 10/10/22 Encounter: covid infecation,generalised weak. Reasons for Services Signs and symptoms assessed: Shortness of breath or chest pain Reason for senior living: medication management, medication treatment and teach disease management Reason for physical therapy: home safety and mobility, therapeutic exercises, restore joint function, gait/transfer training, assess need for DME, ADL training, energy conservation and other MD Overseeing Care: Devin Hall Homebound: Leaving the home is medically contraindicated at this time without the asist of a device and/or another person due th the listed conditions above and below. Reason homebound: weakness related to hospital stay Homebound supporting statement: Patient came with the COVID infection, decreased p.o. intake and generalized weak-need help to go to appointment, home PT. Certification: Based on the above findings, I certify that this patient is confined to the home and needs intermittent senior living care, physical therapy and/or speech therapy, or continues to need occupational therapy. The patient is under my care, and I have initiated the establishment of the plan of care. The patient will be followed by a physician who will periodically review the plan of care. Time Spent With Patient Time: Total time managing care of this patient today ____ minutes.
[2022-10-10] MEDS: Enoxaparin Sodium 30 MG/0.3 ML SYRINGE SUBCUT (10:53)
[2022-10-10 11:02] VITALS: PULSE 66; O2SAT 97
--- NOTE | 2022-10-10 11:19 | MHC.CM.PN ---
Patient has been medically cleared for dc to home today with [facility]. [facility] accepted Patient and they are aware of today's dc.
== END 2022-10-10 13:01 | disposition home health service (06) ==
LOC: HO.ED 22:08 → HO.EDOVER 10-08 11:34 → HO.IMC 10-08 12:22
PROVIDERS: Admitting Provider Physician Assistant; Emergency Provider Internal Medicine; PCP Internal Medicine; Visit Provider Internal Medicine
DX: U07.1 COVID-19 (principal); R05.9 Cough, unspecified; R50.9 Fever, unspecified; R53.1 Weakness; R06.02 Shortness of breath; I12.9 Hypertensive chronic kidney disease with stage 1 through stage 4 chronic kidney disease, or unspecified chronic kidney disease; N18.30 Chronic kidney disease, stage 3 unspecified; E78.5 Hyperlipidemia, unspecified; D64.9 Anemia, unspecified; Z79.82 Long term (current) use of aspirin; Z79.899 Other long term (current) drug therapy; Z79.02 Long term (current) use of antithrombotics/antiplatelets; Z87.891 Personal history of nicotine dependence; Z86.73 Personal history of transient ischemic attack (TIA), and cerebral infarction without residual deficits
CPT/HCPCS: 36415; 71045; 80048; 80053; 83880; 84484; 85025; 87635; 96361; 96372; 96374; 97110; 97116; 97162; 99222; 99285; J1650; J2405

== ENCOUNTER 2023-01-14 14:27 | Emergency (ER) | payer MEDICARE, SELFPAY ==
--- NOTE | ~2023-01-14 | XR_ITS ---
EXAMINATION: XR ANKLE, RIGHT CLINICAL INFORMATION: Pain, redness and swelling status post injury. COMPARISON: None available. TECHNIQUE: AP, lateral, and mortise views of the right ankle. FINDINGS: The ankle mortise and subtalar joints are normal. Small calcaneal heel enthesophyte is seen. There is moderate lower extreme soft tissue swelling. XR/XR ankle RT min 3V IMPRESSION: No visible acute fracture or dislocation. Small calcaneal heel enthesophyte. Bimalleolar soft tissue swelling of unknown etiology..
[2023-01-14 15:01] VITALS: BP 154/62; PULSE 53; RESP 18; TEMP 36; O2SAT 98; BMI 27.1
--- NOTE | 2023-01-14 15:03 | ED.LOWEXIN ---
HPI - Extremity Injury (Lower) General Chief Complaint: Extremity Injury, Lower <JOSH Valle - Last Filed: 01/14/23 15:05> Stated Complaint: R ankle inj/red and swollen <JOSH Valle Last Filed: 01/14/23 15:05> Time Seen by Provider: 01/14/23 15:48 <JOSH Valle - Last Filed: 01/14/23 15:05> Source: patient and family (daughter) <JOSH Montero Last Filed: 01/14/23 16:46> Mode of arrival: ambulatory <JOSH Montero Last Filed: 01/14/23 16:46> Limitations: no limitations <JOSH Montero Last Filed: 01/14/23 16:46> History of Present Illness HPI Narrative: Patient is an 87 year old assigned female at with a history of HTN presenting to the emergency department today with right ankle pain. Patient states that she fell a week ago and has continued having pain to the right ankle. Patient denies any dizziness, lightheadedness, abdominal pain, nausea, vomiting, fever, chills, blurry vision, double vision, loss of vision, chest pain, difficulty breathing, shortness of breath, back pain, night sweats, pain with urination, increased urinary frequency, increased urinary urgency, blood in her urine or stool, syncope or a near syncopal episode, bowel incontinence, bladder incontinence, bowel retention, bladder retention, or any other complaints at this time. <JOSH Montero Last Filed: 01/14/23 16:46> MD complaint: ankle injury <JOSH Montero Last Filed: 01/14/23 16:46> Onset (ago): week(s) (1) <JOSH Montero Last Filed: 01/14/23 16:46> Related Data Home Medications: Home Medications Medication Instructions Recorded Confirmed ergocalciferol (vitamin D2) 1,250 1,250 mcg PO Q14D 09/30/20 10/31/22 mcg (50,000 unit) capsule aspirin 81 mg chewable tablet 81 mg PO BEDTIME 02/16/21 10/31/22 nifedipine 90 mg tablet,extended 90 mg PO DAILY 02/16/21 10/31/22 release 24 hr chlorthalidone 25 mg tablet 12.5 mg PO DAILY 02/26/22 10/31/22 lorazepam 0.5 mg tablet 0.5 mg PO DAILY PRN Anxiety 09/19/22 10/31/22 Previous Rx's Medication Instructions Recorded pantoprazole 40 mg tablet,delayed 40 mg PO DAILY@0630 #90 tabs 02/26/22 release benzonatate 200 mg capsule 200 mg PO TID PRN cough #20 caps 10/07/22 atorvastatin 40 mg tablet 40 mg PO DAILY@1700 10 days #10 11/15/22 tabs carvedilol 3.125 mg tablet 3.125 mg PO BID 10 days #20 tabs 11/15/22 hydralazine 10 mg tablet 10 mg PO TID 10 days #30 tabs 11/15/22 clopidogrel 75 mg tablet 75 mg PO DAILY 7 days #90 tabs 12/05/22 <JOSH Valle Last Filed: 01/14/23 15:05> Allergies/Adverse Reactions: Allergies Allergy/AdvReac Type Severity Reaction Status Date / Time No Known Drug Intolerances Allergy Unknown NOT Verified 01/14/23 15:01 APPLICABLE <JOSH Valle Last Filed: 01/14/23 15:05> Review of Systems Constitutional: Constitutional: Reports no additional constitutional complaints, Denies chills, Denies fever(s) and Denies night sweats <JOSH Montero Last Filed: 01/14/23 16:46> Eyes: Eyes: Reports no additional eye complaints, Denies blurry vision, Denies change in vision, Denies diplopia, Denies eye discharge, Denies loss of vision and Denies eye pain <JOSH Montero Last Filed: 01/14/23 16:46> ENT: Denies dizziness <JOSH Montero Last Filed: 01/14/23 16:46> Cardiovascular: Cardiovascular: Reports no additional cardiovascular complaints, Denies chest pain, Denies lightheadedness, Denies Loss of Consciousness and Denies dyspnea <JOSH Montero Last Filed: 01/14/23 16:46> Respiratory: Respiratory: Reports no additional respiratory complaints and Denies dyspnea <JOSH Montero Last Filed: 01/14/23 16:46> Gastrointestinal: Gastrointestinal: Reports no additional gastrointestinal complaints, Denies abdominal pain, Denies melena, Denies hematochezia, Denies change in bowel habits and Denies change in stool character <JOSH Montero - Last Filed: 01/14/23 16:46> Genitourinary: Genitourinary: Denies hematuria, Denies urinary frequency, Denies dysuria, Denies urinary incontinence, Denies urinary hesitancy and Denies urinary urgency <JOSH Montero - Last Filed: 01/14/23 16:46> Musculoskeletal: Musculoskeletal: Reports no additional musculoskeletal complaints, Denies numbness and Denies tingling <JOSH Montero - Last Filed: 01/14/23 16:46> Comments: right ankle pain <JOSH Montero - Last Filed: 01/14/23 16:46> Neurologic: Denies dizziness, Denies loss of vision, Denies numbness and Denies tingling <JOSH Montero - Last Filed: 01/14/23 16:46> Psychiatric: Psychiatric: Reports no additional psychiatric complaints <JOSH Montero - Last Filed: 01/14/23 16:46> Endocrine: Endocrine: Reports no additional endocrine complaints <JOSH Montero Last Filed: 01/14/23 16:46> Hematologic/Lymphatic: Hematologic/Lymphatic: Reports no additional hematologic/lymphatic complaints <JOSH Montero Last Filed: 01/14/23 16:46> Allergic/Immunologic: Allergic/Immunologic: Reports no additional allergic/immunologic complaints <JOSH Montero - Last Filed: 01/14/23 16:46> PMF Past Medical History Attestation statement: The following information was validated with the patient. (all information validated with the patient's daughter) <JOSH Montero Last Filed: 01/14/23 16:46> Source: old records reviewed, obtained from family (patient's daughter) and nursing notes reviewed <JOSH Montero Last Filed: 01/14/23 16:46> Medical History: Medical History Anemia Aortic stenosis Biliary colic Bradycardia Cerebral infarction Cerebral microvascular disease COVID-19 Hyperlipidemia Hypertension Hypertension <JOSH Valle - Last Filed: 01/14/23 15:05> Surgical History: Surgical History Faizaertoriaz, bilateral History of cholecystectomy S/P laparoscopic cholecystectomy Total knee replacement status <JOSH Valle - Last Filed: 01/14/23 15:05> Family History Family History: Family History Father Heart disease Mother No problems noted. Brother Heart disease <JOSH Valle - Last Filed: 01/14/23 15:05> Social History Social History: Social History Household Members: Spouse Housing: House Do you presently have visiting nurse or other home services: No Unable to assess alcohol history related to: Unknown Alcohol intake: current Alcohol intake frequency: does not drink Alcohol type: hard liquor Patient Tobacco Use Status: Former Tobacco user Quit Date: 1981 Tobacco use type: Cigarette Years Smoked: 25 e-Cigarette/Vaping Use: Never Used Second Hand Smoke Exposure: No Advance Directives: No Advance Directives Information Provided: No Advance Directives Date on File: 02/17/21 service: No Current occupational status: retired Cognitive needs: No Hearing needs: No Vision needs: No <JOSH Valle - Last Filed: 01/14/23 15:05> Physical Exam Vital Signs: Vital Signs: Last Vital Signs Temp 96.8 F 01/14/23 15:01 Pulse 53 01/14/23 15:01 Resp 18 01/14/23 15:01 BP 154/62 H 01/14/23 15:01 Pulse Ox 98 01/14/23 15:01 O2 Del Method Room Air 01/14/23 15:01 BMI result Body Mass Index 27.1 <JOSH Valle - Last Filed: 01/14/23 15:05> Vital Signs: Last Vital Signs Temp 96.8 F 01/14/23 15:01 Pulse 53 01/14/23 15:01 Resp 18 01/14/23 15:01 BP 154/62 H 01/14/23 15:01 Pulse Ox 98 01/14/23 15:01 O2 Del Method Room Air 01/14/23 15:01 BMI result Body Mass Index 27.1 <JOSH Montero - Last Filed: 01/14/23 16:46> Const: General: cooperative, no acute distress, alert and awake <JOSH Montero - Last Filed: 01/14/23 16:46> Nutritional Appearance: well nourished <Bobbi Milian PA - Last Filed: 01/14/23 16:46> Orientation/consciousness: patient oriented x3 <Bobbi Milian PA - Last Filed: 01/14/23 16:46> Limitations: no limitations <JOSH Montero - Last Filed: 01/14/23 16:46> HEENT: Head: Yes normal to inspection and Yes atraumatic <JOSH Montero - Last Filed: 01/14/23 16:46> Ears: hearing grossly normal bilaterally and external ears normal <JOSH Montero - Last Filed: 01/14/23 16:46> General nose exam: Normal external nose present, no nasal discharge noted and no epistaxis <Bobbi Milian PA - Last Filed: 01/14/23 16:46> Face and sinus: Yes normal facial exam, No abrasion and No laceration <JOSH Montero - Last Filed: 01/14/23 16:46> Mouth: Normal oral and palatal mucosa present, no drooling and no muffled voice <JOSH Montero - Last Filed: 01/14/23 16:46> Eyes: General: appearance normal, both eyes and all related structures <JOSH Montero - Last Filed: 01/14/23 16:46> Periorbital: periorbital findings normal <JOSH Montero - Last Filed: 01/14/23 16:46> Eyelids: Yes eyelids normal <JOSH Montero - Last Filed: 01/14/23 16:46> Conjunctivae: conjunctivae normal <Bobbi Milian PA - Last Filed: 01/14/23 16:46> Pupils: Equal, round and reactive pupils present <JOSH Montero - Last Filed: 01/14/23 16:46> EOM: EOMs intact bilaterally <Bobbi Milian PA - Last Filed: 01/14/23 16:46> Neck: Neck: Yes normal visual inspection, Yes full ROM and Yes no lymphadenopathy <Bobbi Milian PA - Last Filed: 01/14/23 16:46> Chest: Chest palpation & inspection: normal inspection of the chest <Bobbi Milian PA - Last Filed: 01/14/23 16:46> Resp: Effort & Inspection: normal respiratory effort and able to speak in complete sentences <Bobbi Milian PA - Last Filed: 01/14/23 16:46> GI: Inspection: Yes normal to inspection <Bobbi Milian PA - Last Filed: 01/14/23 16:46> Neuro: General: patient oriented x3 and moves all extremities <Bobbi Milian PA - Last Filed: 01/14/23 16:46> Cranial nerves: Yes Equal, round and reactive pupils present <Bobbi Milian PA - Last Filed: 01/14/23 16:46> Cognition (Neuro): normal cognition <Bobbi Milian PA - Last Filed: 01/14/23 16:46> Motor exam (neuro): 5/5 motor strength present throughout <Bobbi Milian PA - Last Filed: 01/14/23 16:46> Sensory Exam: Normal double simultaneous stimulation for sensation <Bobbi Milian PA - Last Filed: 01/14/23 16:46> Coordination: [id number] test normal <Bobbi Milian PA - Last Filed: 01/14/23 16:46> Extrem: Other: minimal swelling to the right ankle <Bobbi Milian PA - Last Filed: 01/14/23 16:46> General: Yes full ROM and Yes capillary refill normal <Bobbi Milian PA - Last Filed: 01/14/23 16:46> Psych: Appearance: grossly normal <Bobbi Milian PA - Last Filed: 01/14/23 16:46> Mental Status: mental status grossly normal <Bobbi Milian PA - Last Filed: 01/14/23 16:46> Affect: normal affect <Bobbi Milian PA - Last Filed: 01/14/23 16:46> Attitude: cooperative <Bobbi Perryche PA - Last Filed: 01/14/23 16:46> Thought process: Normal thought process present <JOSH Montero Last Filed: 01/14/23 16:46> Thought content: Normal thought content present <JOSH Montero Last Filed: 01/14/23 16:46> Insight: Good insight present (Psych) <JOSH Montero Last Filed: 01/14/23 16:46> Course Course Course Narrative: RME - 87 yo female presents to the ER for evaluation of right ankle pain, redness and swelling s/p fall 9 days ago. Started having redness to the lateral ankle a few days after the fall. She was walking with a cane and a limp. Right lateral ankle with warm ecchymotic area proximal to the lateral malleolus. Doubt DVT. Plan: x-ray ankle <JOSH Valle Last Filed: 01/14/23 15:05> Medical Decision Making Medical Decision Making MDM Narrative: Patient is an 87 year old assigned female at with a history of HTN presenting to the emergency department today with right ankle pain. Patient's physical exam showed minimal right ankle swelling but was otherwise unremarkable. Patient's right ankle x-ray showed no acute process. I explained my physical exam findings as well as all test results to the patient and the patient's daughter. I answered all questions asked by the patient and the patient's daughter. I stressed the importance of the patient taking her medication as prescribed. I stressed the importance of the patient following up with her primary care provider and an orthopedic provider. I stressed the importance of the patient returning to the emergency department immediately if her symptoms were to worsen or if she were to develop any dizziness, shortness of breath, difficulty breathing, chest pain, blurry vision, loss of vision, nausea, vomiting, abdominal pain, fever, chills, back pain, or any other complaints. Patient verbalized agreement and understanding with this treatment plan and discharge. <JOSH Montero Last Filed: 01/14/23 16:46> Differential Diagnosis Differential Diagnoses: The differential diagnosis associated with the presentation includes <JOSH Montero Last Filed: 01/14/23 16:46> right ankle pain, right ankle strain/sprain <JOSH Montero Last Filed: 01/14/23 16:46> Independent Interpretation I performed an independent interpretation of an: Plain X-Ray <JOSH Montero Last Filed: 01/14/23 16:46> Interpretation: My interpretation is in agreement with the radiologist's impression of this imaging study. EXAMINATION: XR ANKLE, RIGHT CLINICAL INFORMATION: Pain, redness and swelling status post injury.? COMPARISON: None available.? TECHNIQUE: AP, lateral, and mortise views of the right ankle. FINDINGS: The ankle mortise and subtalar joints are normal. Small calcaneal heel enthesophyte is seen. There is moderate lower extreme soft tissue swelling.? XR/XR ankle RT min 3V IMPRESSION: No visible acute fracture or dislocation. Small calcaneal heel enthesophyte. ? Bimalleolar soft tissue swelling of unknown etiology. Dictated By: Gus Chadwick MD Signed By: Electronically signed by Gus Chadwick MD 01/14/23 1601 <JOSH Montero Last Filed: 01/14/23 16:46> Independent Historian Clinical information obtained from an independent historian. History obtained from or confirmed by: Other (patient's daughter) <JOSH Montero Last Filed: 01/14/23 16:46> Discharge Plan Discharge Clinical Impression: Ankle sprain and strain <JOSH Valle Last Filed: 01/14/23 15:05> Patient Disposition: Home, Self-Care <JOSH Valle Last Filed: 01/14/23 15:05> Instructions: Ankle Sprain (DC) <JOSH Valle Last Filed: 01/14/23 15:05> Additional Instructions: Follow up with your primary care provider and an orthopedic provider. Return to the emergency department immediately if your symptoms worsen or if you develop any dizziness, shortness of breath, difficulty breathing, chest pain, blurry vision, loss of vision, nausea, vomiting, abdominal pain, fever, chills, back pain, or any other complaints. <JOSH Valle - Last Filed: 01/14/23 15:05> Prescriptions: No Action pantoprazole 40 mg tablet,delayed release (DR/EC) 40 mg PO DAILY@0630 Qty: 90 8RF hydralazine 10 mg tablet 10 mg PO TID 10 Days Qty: 30 0RF Protocol: Hold for SBP< HOLD for SBP < : 90 carvedilol 3.125 mg tablet 3.125 mg PO BID 10 Days Qty: 20 0RF Protocol: Hold for SBP/HR < HOLD for SBP < : 90 HOLD for HR < : 60 atorvastatin 40 mg tablet 40 mg PO DAILY@1700 10 Days Qty: 10 0RF clopidogrel 75 mg tablet 75 mg PO DAILY 7 Days Qty: 90 3RF nifedipine 90 mg tablet extended release 24hr 90 mg PO DAILY aspirin 81 mg Tablet,Chewable 81 mg PO BEDTIME lorazepam 0.5 mg Tablet 0.5 mg PO DAILY PRN (Reason: Anxiety) benzonatate 200 mg capsule 200 mg PO TID PRN (Reason: cough) Qty: 20 0RF ergocalciferol (vitamin D2) 1,250 mcg (50,000 unit) capsule 1,250 mcg PO Q14D chlorthalidone 25 mg tablet 12.5 mg PO DAILY <JOSH Valle - Last Filed: 01/14/23 15:05> Referrals: [facility] [place] [facility] [Provider Group] (Call to establish and follow up with an orthopedic provider. ) Devin aHll MD [Primary Care Provider] - <JOSH Valle - Last Filed: 01/14/23 15:05> Interventions: ED Discharge Assessment Last Done: 01/14/23 16:38 <JOSH Valle - Last Filed: 01/14/23 15:05> Print Language: Albanian <JOSH Valle - Last Filed: 01/14/23 15:05>
== END 2023-01-14 16:39 | disposition home or self-care (01) ==
PROVIDERS: Emergency Provider Emergency Medicine; PCP Internal Medicine
DX: S93.401A Sprain of unspecified ligament of right ankle, initial encounter (principal); X58.XXXA Exposure to other specified factors, initial encounter; Y93.9 Activity, unspecified; Y92.9 Unspecified place or not applicable; Y99.9 Unspecified external cause status; Z79.899 Other long term (current) drug therapy
CPT/HCPCS: 73610; 99282; 99283

== ENCOUNTER → 2023-03-08 09:39 | Outpatient (BNVA) | payer MEDICARE, SELFPAY | PROVIDERS: PCP Internal Medicine; Referring Provider Internal Medicine; Visit Provider Internal Medicine Cardiovascular Disease | DX: R60.0 Localized edema (principal); I10 Essential (primary) hypertension | CPT/HCPCS: 99212 ==

== ENCOUNTER 2023-05-07 09:22 | Outpatient (REF) | payer MEDICARE, SELFPAY ==
[2023-05-07 09:49] LABS: MANUAL DIFF FLAG NO
[2023-05-07 10:06] LABS: Basophils Percent Auto 0.9 % (0-2); Eosinophils Absolute Auto 0.2 X10*3/uL (0.0-0.4); Eosinophils Percent Auto 3.5 % (0-4); Hematocrit 35.6 % (37.0-47.0); Hemoglobin 11.7 g/dl (12.0-16.0); Imm Gran Abs Auto 0.01 X10*3/uL (0.00-0.03); Imm Gran Pct Auto 0.2 % (0.0-0.4); Lymphocytes Absolute Auto 1.1 X10*3/uL (1.2-4.9); Lymphocytes Percent Auto 23.5 % (20-40); Mean Corpuscular HGB Conc 32.9 g/dl (31.0-35.0); Mean Corpuscular Hemoglobin 30.6 pg (27.0-33.0); Mean Corpuscular Volume 93.2 fL (80.0-98.0); Mean Platelet Volume 9.5 fL (9.4-12.3); Monocytes Absolute Auto 0.4 X10*3/uL (0.1-1.2); Monocytes Percent Auto 9.3 % (2-11); Neutrophils Absolute Auto 2.9 x10*3/uL (2.0-8.3); Neutrophils Percent Auto 62.6 % (45-73); Platelet Count 245 X10*3/uL (160-400); Red Blood Count 3.82 X10*6/uL (4.20-5.50); White Blood Count 4.6 X10*3/uL (4.8-10.8)
[2023-05-07 10:08] LABS: Basophils Percent Auto 0.9 % (0-2); Eosinophils Absolute Auto 0.1 X10*3/uL (0.0-0.4); Eosinophils Percent Auto 3.2 % (0-4); Hematocrit 36.1 % (37.0-47.0); Hemoglobin 11.9 g/dl (12.0-16.0); Imm Gran Abs Auto 0.02 X10*3/uL (0.00-0.03); Imm Gran Pct Auto 0.5 % (0.0-0.4); Lymphocytes Absolute Auto 1.1 X10*3/uL (1.2-4.9); Lymphocytes Percent Auto 24.8 % (20-40); Mean Corpuscular Hemoglobin 30.7 pg (27.0-33.0); Mean Corpuscular Volume 93.3 fL (80.0-98.0); Mean Platelet Volume 9.6 fL (9.4-12.3); Monocytes Absolute Auto 0.4 X10*3/uL (0.1-1.2); Monocytes Percent Auto 9.5 % (2-11); Neutrophils Absolute Auto 2.6 x10*3/uL (2.0-8.3); Neutrophils Percent Auto 61.1 % (45-73); Platelet Count 263 X10*3/uL (160-400); Red Blood Count 3.87 X10*6/uL (4.20-5.50); Red Cell Distribution Width 12.8 % (11.0-16.0); White Blood Count 4.3 X10*3/uL (4.8-10.8)
[2023-05-07 10:08] LABS: Appearance Urine Cloudy; Color Urine Yellow; Glucose Urine UA Negative (Negative); Leukocyte Esterase Urine Small (1+) (Negative); Nitrite Urine Negative (Negative); PH 5.5 (5.0-9.0); Specific Gravity - Urine 1.015 (1.005-1.025); UMIC TRIGGER UA YES; Urine Blood Negative (Negative); Urine Ketones Negative (Negative); Urine Protein 100 (2+) mg/dL (Neg-Trace)
[2023-05-07 10:11] LABS: Bacteria Urine 1+ (None Seen); Hyaline Casts Urine 0-2 /LPF (0-2); RBC Urine 0-2 /HPF (0-2); Squamous Epithelial Cell Urine >20 /HPF (0-2)
[2023-05-07 10:39] LABS: Creatinine Urine 87.06 mg/dL; Microalbum/Creatinine Ratio Ur 454.8 ug/mg cr (<30); Protein/Creatinine Ratio, Ur 0.65 (<0.2); Total Protein Urine Random 57 mg/dL (<12)
[2023-05-07 10:47] LABS: Alanine Aminotransferase 11 U/L (0-31); Albumin Level 4.2 g/dL (3.5-5.0); Alkaline Phosphatase 117 U/L (39-117); Anion Gap 14 (12-20); Aspartate Amino Transferase 13 U/L (5-31); Bilirubin Total 0.4 mg/dL (0.0-1.0); Blood Urea Nitrogen 24 mg/dL (9-16); Calcium 9.7 mg/dL (8.4-10.2); Carbon Dioxide 23 mmol/L (22-29); Chloride 110 mmol/L (96-108); Cholesterol 140 mg/dL (<200); Estimated Glomerular Filt Rate 51; Glucose Fasting 91 mg/dL (60-99); HDL Cholesterol 45 mg/dL (>40); LDL Cholesterol Calculated 70 mg/dL (<100); Potassium 4.8 mmol/L (3.3-5.1); Sodium 142 mmol/L (135-145); Total Protein 7.3 g/dL (6.5-8.0); Triglycerides 126 mg/dL (<150)
[2023-05-07 10:59] LABS: Vitamin D 25-OH Total 24.3 ng/mL (>30)
[2023-05-07 11:04] LABS: Thyroid Stimulating Hormone 1.98 uIU/mL (0.32-4.0)
[2023-05-07 11:06] LABS: Albumin Level 4.2 g/dL (3.5-5.0); Anion Gap 13 (12-20); Blood Urea Nitrogen 25 mg/dL (9-16); Calcium 9.7 mg/dL (8.4-10.2); Carbon Dioxide 24 mmol/L (22-29); Chloride 111 mmol/L (96-108); Estimated Glomerular Filt Rate 50; Phosphorus 2.9 mg/dL (2.7-4.5); Sodium 143 mmol/L (135-145)
[2023-05-07 11:19] LABS: Magnesium 1.4 mg/dL (1.6-2.6)
[2023-05-09 10:48] LABS: Calcium (PTHI) 9.4 mg/dL (8.6-10.4); PTHI 150 pg/mL (16-77)
== END 2023-05-07 09:23 | disposition home or self-care (01) ==
LOC: HO.LAB 09:22
PROVIDERS: Absent Provider Internal Medicine; PCP Internal Medicine; Visit Provider Internal Medicine Nephrology
DX: N28.9 Disorder of kidney and ureter, unspecified (principal); E03.9 Hypothyroidism, unspecified; D64.9 Anemia, unspecified; E78.5 Hyperlipidemia, unspecified; I12.9 Hypertensive chronic kidney disease with stage 1 through stage 4 chronic kidney disease, or unspecified chronic kidney disease; N18.31 Chronic kidney disease, stage 3a; N25.0 Renal osteodystrophy
CPT/HCPCS: 36415; 80051; 80053; 80061; 81001; 82040; 82043; 82306; 82310; 82565; 83735; 83970; 84100; 84156; 84443; 84520; 85025; 87086

== ENCOUNTER 2023-05-13 09:54 | Outpatient (AMB) | payer MEDICARE, SELFPAY ==
--- NOTE | 2023-05-13 09:59 | A.OFFPC_ITS ---
Vital Signs 05/13/23 10:02 Height 5 ft Weight 142 lb 4 oz BMI 27.8 BP 140/80 H Blood Pressure Location Lt brachial Position Sitting Pulse 53 Pulse Source Pulse Oximeter Pulse Oximetry (%) 98 Oxygen Delivery Method Room Air Intake Visit Reasons: L Eye Cataract Extraction Intake Note: Patient is here for a Pre-op for left eye cataract surgery scheduled with Ru Thakur on 05/29/23. 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: No Supervisor [employer]: Present Accompanied by: Family/Other Allergies No Known Drug Intolerances Allergy (Unknown, Verified 05/13/23 10:01) NOT APPLICABLE Medication List - Last Reconciled 05/13/23 by Devin Hall MD atorvastatin 40 mg PO QPM benzonatate 200 mg PO TID PRN carvedilol 3.125 mg See Protocol PO BID 10 days chlorthalidone 25 mg PO DAILY clopidogrel 75 mg PO DAILY 7 days comp.stocking,knee,long,medium As directed ergocalciferol (vitamin D2) 1,250 mcg PO Q14D lorazepam 0.5 mg PO DAILY PRN nifedipine ER 90 mg PO DAILY pantoprazole 40 mg PO DAILY@0630 Tobacco use date assessed: 05/13/23 Fall risk assessment: 1 Fall in past year Last assessed Fall Risk: 05/13/23 Dental Screening Dental Screen Date: 05/13/23 Did you have a dental visit in the last 12 months?: Yes Did you have a dental problem in the last 6 months where you did not have access to dental care?: No Was dental information given to patient?: Patient has dentist HPI L Eye Cataract Extraction HPI Details having a cataract repair; has hyperlipidemia HTN and had a TIA last year; stable; no hisory of CAD PFSH Medical History (Updated 05/13/23 @ 10:31 by Devin Hall MD) Anemia Aortic stenosis Biliary colic Bradycardia Cerebral infarction Cerebral microvascular disease COVID-19 Hyperlipidemia Hypertension Hypertension Surgical History Hammertoe, bilateral History of cholecystectomy S/P laparoscopic cholecystectomy Total knee replacement status Family History Father Heart disease Mother No problems noted. Brother Heart disease Social History Household Members: Spouse Housing: House Do you presently have visiting nurse or other home services: No Unable to assess alcohol history related to: Unknown Alcohol intake: current Alcohol intake frequency: does not drink Alcohol type: hard liquor Patient Tobacco Use Status: Former Tobacco user Quit Date: 1981 Tobacco use type: Cigarette Years Smoked: 25 e-Cigarette/Vaping Use: Never Used Second Hand Smoke Exposure: No Advance Directives Date on File: 02/17/21 service: No Current occupational status: retired Cognitive needs: Yes (walker, wheel chair, cane) Hearing needs: No Vision needs: Yes (glasses) Questionnaire PHQ-9 Over the last 2 weeks, how often have you been bothered by any of the following problems? 1. Little interest or pleasure in doing things: not at all 2. Feeling down, depressed, or hopeless: not at all 3. Trouble falling or staying asleep, or sleeping too much: not at all 4. Feeling tired or having little energy: not at all 5. Poor appetite or overeating: not at all 6. Feeling bad about yourself - or that you are a failure or have let yourself or your family down: not at all 7. Trouble concentrating on things, such as reading the newspaper or watching television: not at all 8. Moving or speaking so slowly that other people could have noticed. Or the opposite - being so fidgety or restless that you have been moving around a lot more than usual: not at all 9. Thoughts that you would be better off or of hurting yourself in some way: not at all Total score: 0 Depression Screening Interpretation: Negative Source: Developed by Drs. Chris Madison, Felicia Zambrano, Brett Ruiz and colleagues, with an educational helga from [employer]. Thrive Questionnaire Date Thrive assessed: 05/13/23 I am a: Patient What is your living situation today?: I have a steady place to live Within the past 12 months, did the food you bought not last and you didn't have the money to get more?: Never true Within the past 12 months, did you worry whether your food would run out before you got money to buy more?: Never true Do you have trouble paying for medicines?: No Do you have trouble getting transportation to medical appointments?: No Do you have trouble paying your heating and electricity bill?: No Do you have trouble taking care of your child, family member or friend?: No Do you have trouble with day-to-day activities such as bathing, preparing meals, shopping, managing finances, etc.?: No Are you currently unemployed and looking for a job?: No Are you interested in more education?: No Currently or been in a relationship where the following occur: no concerns reported AUDIT C Alcohol Use Questionnaire (AUDIT-C) 1. How often do you have a drink containing alcohol?: Never Total Score: 0 VY-7 AMB Questionnaire VY-7 Date VY - 7 assessed: 05/13/23 Feeling nervous, anxious, or on edge: 0 = Not at all Not being able to stop or control worryin = Not at all Worrying too much about different things: 0 = Not at all Trouble relaxin = Not at all Being so restless that it is hard to sit still: 0 = Not at all Becoming easily annoyed or irritable: 0 = Not at all Feeling afraid as if something awful might happen: 0 = Not at all Total VY-7 score (0-4 normal; 5-9 mild; 10-14 moderate; 15-21 severe): 0 Source: Developed by Drs. Chris Madison, Felicia Zambrano, Brett Ruiz and colleagues, with an educational helga from [employer]. Review of Systems Const Denies chills, Denies fatigue, Denies headache(s) and Denies weight loss Eyes Denies change in vision, Denies diplopia and Denies eye pain ENT Denies vertigo, Denies dizziness, Denies headache(s) and Denies nasal discharge Card Denies chest pain, Denies rapid heart rate and Denies dyspnea on exertion Resp Denies chest congestion, Denies cough, Denies pain with cough and Denies dyspnea on exertion GI Denies abdominal pain, Denies hematochezia and Denies change in bowel habits Musc Denies myalgias, Denies arthralgias and Denies joint swelling Skin/Breast Denies lesions and Denies unusual bruising Neuro Denies vertigo, Denies dizziness, Denies headache(s) and Denies focal weakness Endo Denies fatigue Physical exam (Primary Care) Vital Signs: Last Vital Signs Pulse 53 05/13/23 10:02 BP 140/80 H 05/13/23 10:02 Pulse Ox 98 05/13/23 10:02 Oxygen Delivery Method Room Air 05/13/23 10:02 BMI result Body Mass Index 27.8 Tobacco/Smoking Status: Tobacco use Status Tobacco use date assessed 05/13/23 05/13/23 10:10 Patient Tobacco Use Status Former Tobacco user 05/13/23 10:00 Tobacco use type Cigarette 05/13/23 10:00 e-Cigarette/Vaping Use Never Used 05/13/23 10:00 PHQ-9: PHQ-9 Score PHQ-9: Total score 0 05/13/23 10:00 Depression Screening Interpretation: Negative Thrive Assessment: Date of Thrive Assessment Date Thrive assessed 05/13/23 05/13/23 10:00 Currently or been in a relationship where the following occur: no concerns reported Const General: cooperative, healthy appearing and no acute distress Orientation/consciousness: oriented to person, oriented to place and oriented to time HENMT Head: Yes normal to inspection, Yes normocephalic and Yes atraumatic Mouth: Normal oral and palatal mucosa present and tongue normal Throat: Yes posterior oropharynx normal and Yes uvula midline Eyes General: appearance normal, both eyes and all related structures Neck Neck: Yes normal visual inspection, Yes full ROM and Yes no lymphadenopathy Thyroid: Thyroid normal Carotids: normal carotid upstroke Chest Chest palpation & inspection: normal inspection of the chest Resp Effort & Inspection: normal respiratory effort and able to speak in complete sentences Auscultation: clear to auscultation bilaterally Cardio Jugular venous distension: no JVD Palpation: normal PMI Rate: regular rate Rhythm: regular rhythm Heart sounds: S1 normal heart sound present and S2 normal heart sound present GI Inspection: Yes normal to inspection Palpation (GI): Soft to palpation and No hepatosplenomegaly present Auscultation: normal bowel sounds General: Yes no CVA tenderness Back/Spine/Pelvis Back: no CVA tenderness Skin General skin exam: no rashes or lesions noted Neuro General: oriented to person, oriented to place and oriented to time Extrem General: Yes normal to inspection and Yes full ROM Assessment and Plan Assessment & Plan (1) Preop exam for internal medicine: Code(s): Z01.818 - Encounter for other preprocedural examination Plan: low risk for cardiovascular complications; cleared for surgery (2) Hypertension: Code(s): I10 - Essential (primary) hypertension Plan: stable; same rx (3) Hyperlipidemia: Code(s): E78.5 - Hyperlipidemia, unspecified Plan: stable; same rx Coding Level of Care Code Est Pt Level 4 (54073) Diagnoses Preop exam for internal medicine Z01.818 Hypertension I10 Hyperlipidemia E78.5
[2023-05-13 10:02] VITALS: BP 140/80; PULSE 53; O2SAT 98; BMI 27.8
== END 2023-05-13 10:47 | disposition home or self-care (01) ==
PROVIDERS: PCP Internal Medicine; Visit Provider Internal Medicine
DX: Z01.818 Encounter for other preprocedural examination (principal); I10 Essential (primary) hypertension; E78.5 Hyperlipidemia, unspecified
CPT/HCPCS: 99214

== ENCOUNTER 2023-06-19 09:50 | Outpatient (AMB) | payer MEDICARE, SELFPAY ==
[2023-06-19 09:53] VITALS: BP 132/72; PULSE 61; BMI 27.8
--- NOTE | 2023-06-19 09:53 | MHC.OFFVIS ---
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: Thermal Cutting Machine Operator Present Accompanied by: Daughter Allergies No Known Drug Intolerances Allergy (Unknown, Verified 06/19/23 09:59) NOT APPLICABLE Medication List - Last Reconciled 06/19/23 by Harman Rico MD atorvastatin 40 mg PO QPM benzonatate 200 mg PO TID PRN carvedilol 3.125 mg See Protocol PO BID 10 days chlorthalidone 25 mg PO DAILY clopidogrel 75 mg PO DAILY 7 days comp.stocking,knee,long,medium As directed ergocalciferol (vitamin D2) 1,250 mcg PO Q14D hydralazine 25 mg PO BID ketorolac 0.5% drps ophthalmic (eye) lorazepam 0.5 mg PO DAILY PRN nifedipine ER 30 mg PO DAILY pantoprazole 40 mg PO DAILY@0630 HPI HPI Comments History of Present Illness Details 87-year-old female who is here for follow-up. She has background history of hypertension, hyperlipidemia, acid reflux and COVID-19 infection the past. In September 2022 she was at [facility] with TIA. She was discharged with aspirin and Plavix. She was also given hydralazine 10 mg 3 times a day. She has been taking medications including chlorthalidone 12.5 mg daily, carvedilol 3.125 mg twice a day and nifedipine 90 mg daily. Her complaints are mostly lower extremity edema, fatigue and shortness of breath. She is frail and it appears she is not very active. With activities she gets tired easily and gets out of breath. No orthopnea or PND. She has mild edema to her ankles. She has been taking nifedipine for some time. She has been on aspirin and Plavix since September 2022 since the TIA. 06/19/2023: She returns for follow-up. A blood pressure control is better. She is taking carvedilol 3.125 mg twice a day, cryotherapy tone 25 mg daily, hydralazine 25 mg twice a day and nifedipine 30 mg daily. Denying any significant chest discomfort shortness of breath. She is saying she walks outside whenever she can and has no significant symptoms. She is taking Plavix currently for previous TIA. [facility] Medical History (Updated 05/13/23 @ 10:31 by Devin Hall MD) COVID-19 Cerebral microvascular disease Cerebral infarction Anemia Bradycardia Hypertension Aortic stenosis Biliary colic Hypertension Hyperlipidemia Surgical History History of cholecystectomy S/P laparoscopic cholecystectomy Hammertoe, bilateral Total knee replacement status Family History Father Heart disease Mother No problems noted. Brother Heart disease Social History Household Members: Spouse Housing: House Do you presently have visiting nurse or other home services: No Unable to assess alcohol history related to: Unknown Alcohol intake: current Alcohol intake frequency: does not drink Alcohol type: hard liquor Patient Tobacco Use Status: Former Tobacco user Quit Date: 1981 Tobacco use type: Cigarette Years Smoked: 25 e-Cigarette/Vaping Use: Never Used Second Hand Smoke Exposure: No Advance Directives Date on File: 02/17/21 service: No Current occupational status: retired Cognitive needs: Yes (walker, wheel chair, cane) Hearing needs: No Vision needs: Yes (glasses) Review of Systems ENT Reports dizziness Card Denies chest pain, Denies chest pain at rest, Denies chest pain with activity, Denies rapid heart rate, Denies pedal edema, Denies edema, Denies leg edema, Denies lightheadedness, Denies palpitations, Denies dyspnea, Denies dyspnea on exertion and Denies orthopnea Resp Denies cough, Denies dyspnea and Denies dyspnea on exertion GI Denies hematochezia and Denies change in stool character Musc Denies abnormal gait, Reports limited range of motion, Reports muscle cramps, Denies muscle weakness, Denies numbness, Denies radiating pain into limb, Denies stiffness and Denies tingling Neuro Denies abnormal gait, Reports dizziness, Denies numbness and Denies tingling Endo Denies palpitations Physical Exam Vital Signs: Last Vital Signs Pulse 61 06/19/23 09:53 BP 132/72 06/19/23 09:53 BMI result Body Mass Index 27.8 GENERAL APPEARANCE: in no acute distress, pleasant. NECK: no carotid bruit, no jugular venous distention. SKIN: no suspicious lesions, warm and dry. HEART: Ejection systolic murmur with preserved 2nd heart sound, regular rate and rhythm. LUNGS: clear to auscultation bilaterally. ABDOMEN: soft, nontender. EXTREMITIES: Mild edema to the ankles. PERIPHERAL PULSES: equal. NEUROLOGIC: No gross deficits, AAO X 3 Assessment & Plan Assessment & Plan (1) Hypertension: Code(s): I10 - Essential (primary) hypertension Plan [age] year female who is here for follow-up. She has known history of TIA and hypertension. She is currently taking Plavix 75 mg daily. Blood pressure control is good. She should continue same medications at this stage. She occasionally gets dizzy when she changes her posture. I have advised her to keep herself well hydrated. Follow up with us in 6 months. Thank you for allowing me to participate in the care of your patient. Please feel free to contact me if you have any questions. Coding Level of Care Code Est Pt Level 3 (96229) Diagnoses Hypertension I10
== END 2023-06-19 10:16 | disposition home or self-care (01) ==
PROVIDERS: PCP Internal Medicine; Visit Provider Internal Medicine Cardiovascular Disease
DX: I10 Essential (primary) hypertension (principal)
CPT/HCPCS: 99213

== ENCOUNTER → 2023-06-19 09:50 | Outpatient (BNVA) | payer MEDICARE, SELFPAY | PROVIDERS: PCP Internal Medicine; Visit Provider Internal Medicine Cardiovascular Disease | DX: I10 Essential (primary) hypertension (principal); Z86.73 Personal history of transient ischemic attack (TIA), and cerebral infarction without residual deficits; Z79.02 Long term (current) use of antithrombotics/antiplatelets | CPT/HCPCS: 99212 ==

== ENCOUNTER 2023-08-13 15:11 | Emergency (ER) | payer MEDICARE, SELFPAY ==
--- NOTE | ~2023-08-13 | US_ITS ---
EXAMINATION: US ABDOMEN LIMITED CLINICAL INFORMATION: Right upper quadrant pain and tenderness. Abnormal liver function tests. History of cholecystectomy. COMPARISON: Ultrasound abdomen 01/02/2022, MRCP 01/03/2022 TECHNIQUE: Real-time imaging of the right upper quadrant abdominal viscera. FINDINGS: PANCREAS: Pancreas appears unremarkable. LIVER: The liver is normal in size. The liver contour is normal. Parenchymal echogenicity is normal. No focal hepatic lesion. There is no intrahepatic biliary duct dilatation seen. GALLBLADDER: Status post cholecystectomy COMMON BILE DUCT: Could not be identified to measure. RIGHT KIDNEY: Right kidney is small with lobular contour measuring 8.7 cm in greatest length with increased echogenicity. No hydronephrosis. Multiple benign Bosniak class I renal cysts are noted, the largest measuring 1.4 cm which require no additional imaging or follow-up. No solid renal masses are seen. No renal calculi. FREE FLUID: None. US/US abdomen limited IMPRESSION: 1. A cause for the patient's right upper quadrant pain and tenderness has not been found. 2. Status post cholecystectomy. 3. Small echogenic right kidney with benign Bosniak class I renal cysts which require no additional imaging or follow-up.
--- NOTE | ~2023-08-13 | XR_ITS ---
EXAMINATION: XR CHEST CLINICAL INFORMATION: Lower sternal pain COMPARISON: Chest x-ray October 07, 2022 TECHNIQUE: 2 views of the chest were obtained. FINDINGS: Lungs are clear. No pulmonary vascular congestion. There is no pleural effusion. The heart size is normal. The cardiac and mediastinal contours are normal. There are calcifications of the thoracic aorta. There are multilevel degenerative changes of dorsal spine. XR/XR chest 2V IMPRESSION: Unremarkable examination.
[2023-08-13 15:20] VITALS: BP 151/64; BP 178/72; PULSE 48; PULSE 61; RESP 16; TEMP 36.6; O2SAT 96; O2SAT 98; BMI 28.2
--- NOTE | 2023-08-13 15:29 | ECG_ITS ---
Test Reason : EPIGASTRIC PAIN Blood Pressure : / mmHG Vent. Rate : 063 BPM Atrial Rate : 063 BPM P-R Int : 166 ms QRS Dur : 082 ms QT Int : 416 ms P-R-T Axes : 000 019 063 degrees QTc Int : 425 ms Normal sinus rhythm Normal ECG When compared with ECG of 19-SEP-2022 13:25, No significant change was found Referred By: Bobbi Milian Electronically Signed By:BARB HOUSER MD
[2023-08-13 15:36] VITALS: BP 151/64; PULSE 61; RESP 16; TEMP 36.6; O2SAT 96
--- NOTE | 2023-08-13 15:48 | ED_ITS ---
HPI - General Adult General Chief complaint: Abdominal Pain Stated complaint: upper abd pain, nausea Time Seen by Provider: 08/13/23 15:29 History of Present Illness HPI narrative: The patient is an 87-year-old woman who lives alone in her own home in [place]. Her [facility]. The patient says that at around noon she ate a ham salad sandwich. About 2 hours later she was watching TV when she developed acute epigastric pain that was quite severe and she rated it as an 8/10. She went to the bathroom thinking she might vomit or diarrhea but had neither. She was very concerned about the pain and called 911. Paramedics administered ondansetron with improvement in her pain. By the time she got here her pain is 2/10. She says the pain is not similar to pain she experienced when she had a gallbladder problem. She ultimately had her gallbladder removed she says. She has had she been feeling fine earlier in the day. No fever, sweats, chills. The patient is on clopidogrel. She is not on anticoagulants otherwise. She says her last bowel movement was this morning and was normal in color. She has had no black stools. Related Data Home Medications Medication Instructions Recorded Confirmed ergocalciferol (vitamin D2) 1,250 1,250 mcg PO Q14D 09/30/20 06/19/23 mcg (50,000 unit) capsule hydralazine 25 mg tablet 25 mg PO BID 06/19/23 06/19/23 ketorolac 0.5 % eye drops drp ophthalmic (eye) 06/19/23 06/19/23 nifedipine 30 mg tablet,extended 30 mg PO DAILY 06/19/23 06/19/23 release 24 hr Previous Rx's Medication Instructions Recorded benzonatate 200 mg capsule 200 mg PO TID PRN cough #20 caps 10/07/22 clopidogrel 75 mg tablet 75 mg PO DAILY 7 days #90 tabs 12/05/22 lorazepam 0.5 mg tablet 0.5 mg PO DAILY PRN Anxiety #60 03/05/23 tabs comp.stocking,knee,long,medium #2 ea 03/08/23 atorvastatin 40 mg tablet 40 mg PO QPM #90 tabs 04/01/23 chlorthalidone 25 mg tablet 25 mg PO DAILY #90 tabs 04/01/23 carvedilol 3.125 mg tablet 3.125 mg PO BID 10 days #180 tabs 06/10/23 pantoprazole 40 mg tablet,delayed 40 mg PO DAILY@0630 #90 tabs 07/08/23 release cephalexin 500 mg capsule 500 mg PO BID #10 caps 08/13/23 Allergies Allergy/AdvReac Type Severity Reaction Status Date / Time No Known Drug Intolerances Allergy Unknown NOT Verified 06/19/23 09:59 APPLICABLE Review of Systems 2 Review of Systems: Yes all other systems are reviewed and are negative [facility] Past Medical History Medical History (Updated 08/13/23 @ 20:29 by Aiden Moeller MD) COVID-19 Cerebral microvascular disease Cerebral infarction Anemia Bradycardia Hypertension Aortic stenosis Biliary colic Hypertension Hyperlipidemia Surgical History History of cholecystectomy S/P laparoscopic cholecystectomy Hammertoe, bilateral Total knee replacement status Family History Family History Father Heart disease Mother No problems noted. Brother Heart disease Social History Social History Household Members: Spouse Housing: House Do you presently have visiting nurse or other home services: No Unable to assess alcohol history related to: Unknown Alcohol intake: current Alcohol intake frequency: holidays/special occasions only Alcohol type: hard liquor Comment: no fluids given po Patient Tobacco Use Status: Former Tobacco user Quit Date: 1981 Tobacco use type: Cigarette Years Smoked: 25 Smoked in Last 30 Days: No e-Cigarette/Vaping Use: Never Used Second Hand Smoke Exposure: No Use of substances other than those prescribed or required for medical reasons: No Advance Directives: No Advance Directives Information Provided: No Advance Directives Date on File: 02/17/21 service: No Current occupational status: retired Cognitive needs: Yes (walker, wheel chair, cane) Hearing needs: No Vision needs: Yes (glasses) Physical Exam ED Vital Signs: Vital Signs - 24 hr 08/13/23 15:20 08/13/23 15:36 08/13/23 20:25 Temperature 97.9 F 97.9 F 98.3 F Pulse Rate 61 61 60 Respiratory Rate 16 16 16 Blood Pressure 151/64 H 151/64 H 158/65 H Pulse Oximetry 96 96 95 Oxygen Delivery Method Room Air Room Air Room Air BMI result Body Mass Index 28.2 Const Other: The patient is an older woman who is awake and alert. She did not appear in overt distress. She did not appear obviously uncomfortable nor did she seem short of breath in any way. HENMT Other: The appearance of the face is unremarkable. The face is symmetrical. Tongue is midline. Mucous membranes moist. Eyes Other: Pupils are round equal, conjunctivae clear Neck Other: No JVD Resp Other: Lungs are clear bilaterally. Cardio Other: The patient has regular rate and rhythm. There is a 3-4/6 systolic murmur. GI Other: Patient has some epigastric and upper abdominal tenderness including right upper quadrant tenderness. Lower abdomen was nontender. No rigidity. Skin Other: The skin was dry and unremarkable Neuro Other: The patient is awake, alert, pleasant, cooperative. She seems oriented and appropriate. Speech is clear. Face is symmetrical. She moves her extremities normally and seems grossly neurologically intact. Extrem Other: No calf swelling or tenderness. No calf asymmetry. Medications Administered Discontinued Medications Generic Name Dose Route Start Last Admin Trade Name Yvonq PRN Reason Stop Dose Admin Cephalexin HCl 500 mg 08/13/23 20:28 08/13/23 20:33 Cephalexin 500 Mg Capsule PO 08/13/23 20:29 500 mg ONCE ONE Administration Famotidine 20 mg 08/13/23 16:57 08/13/23 17:44 Famotidine/Pf 20 Mg/2 Ml Vial IVPUSH 08/13/23 16:58 20 mg ONCE ONE Administration Ondansetron HCl 4 mg 08/13/23 16:57 08/13/23 17:44 Ondansetron Hcl 4 Mg/2 Ml Vial IVPUSH 08/13/23 16:58 4 mg ONCE ONE Administration Medical Decision Making Medical Decision Making [facility] Narrative: The patient presents with acute epigastric discomfort that started approximately 1.5-2 hours after she ate ham salad sandwich and had a Coke for lunch. Apparently her discomfort had been quite intense initially but she was already feeling somewhat better by the time I saw her. Her pain at the time I saw her with 2/10. She had apparently received a dose of ondansetron from paramedics. The discomfort did not lateralize and she has not feel short of breath. There has been no fever, sweats, chills. No cough. Patient was given IV ondansetron and IV famotidine and had a workup that included some mildly abnormal LFTs. She has had a cholecystectomy. Given the location of her pain and her abnormal LFTs I obtained an ultrasound of her right upper quadrant that showed no signs of biliary obstruction. Other testing was reassuring. White count is normal. Her EKG showed normal sinus rhythm at 63 beats per minute and had no ischemic changes. Her troponins are flat. Chest x- ray is unremarkable. Patient was in the emergency room for several hours during which time she had complete resolution of her discomfort. The only lab abnormalities of any significance with the results of the patient's urine studies. Her urinalysis showed 3+ leukocyte esterase and her microscopy showed greater than 50 white cells. The patient admits to some mild urinary pressure of uncertain duration. She would prefer to be treated with antibiotics if there is any question of UTI. She was started on cephalexin. Otherwise she looks quite well and was to be discharged to her home. Her daughter was called for a ride home. Lab Data 08/13/23 16:41 08/13/23 15:54 Labs: Lab Results 08/13/23 08/13/23 08/13/23 Range/Units 15:54 16:41 16:49 WBC 7.7 (4.8-10.8) X10*3/uL RBC 3.60 L (4.20-5.50) X10*6/uL Hgb 11.0 L (12.0-16.0) g/dl Hct 33.8 L (37.0-47.0) % MCV 93.9 (80.0-98.0) fL MCH 30.6 (27.0-33.0) pg MCHC 32.5 (31.0-35.0) g/dl RDW 12.9 (11.0-16.0) % Plt Count 202 (160-400) X10*3/uL MPV 9.5 (9.4-12.3) fL Immature Gran % (Auto) 0.3 (0.0-0.4) % Neut % (Auto) 79.8 H (45-73) % Lymph % (Auto) 10.6 L (20-40) % [place] % (Auto) 7.1 (2-11) % Eos % (Auto) 1.9 (0-4) % Baso % (Auto) 0.3 (0-2) % Lymph # (Auto) 0.8 L (1.2-4.9) X10*3/uL [place] # (Auto) 0.6 (0.1-1.2) X10*3/uL Eos # (Auto) 0.2 (0.0-0.4) X10*3/uL Baso # (Auto) 0.0 (0.0-0.2) X10*3/uL Abs Immat Gran (auto) 0.02 (0.00-0.03) X10*3/uL Absolute Neuts (auto) 6.2 (2.0-8.3) x10*3/uL Absolute Nucleated RBC 0.000 (0.0-0.012) X10*3/uL Nucleated RBC % (auto) 0.0 (0.0-0.2) /100WBC Sodium 141 (135-145) mmol/L Potassium 5.1 (3.3-5.1) mmol/L Chloride 114 H (96-108) mmol/L Carbon Dioxide 20 L (22-29) mmol/L Anion Gap 12 (12-20) BUN 31 H (9-16) mg/dL Creatinine 1.31 (0.5-1.4) mg/dL Estim Creat Clear Calc 26.0 Estimated GFR 38 Random Glucose 119 H (60-115) mg/dL Calcium 9.3 (8.4-10.2) mg/dL Total Bilirubin 0.3 (0.0-1.0) mg/dL Direct Bilirubin 0.1 (0.0-0.5) mg/dL AST 50 H (5-31) U/L ALT 27 (0-31) U/L Alkaline Phosphatase 146 H (39-117) U/L Troponin I High Sens 5.0 D (<3.5-17.0) ng/L C-Reactive Protein 0.51 H (< or = 0.50) mg/dL Total Protein 7.2 (6.5-8.0) g/dL Albumin 3.9 (3.5-5.0) g/dL Lipase 15 (8-78) U/L Urine Color Yellow Urine Appearance Cloudy Urine pH 5.5 (5.0-9.0) Ur Specific [place] 1.015 (1.005-1.025) Urine Protein 30 (1+) H (Neg-Trace) mg/dL Urine Glucose (UA) Negative (Negative) mg/dL Urine Ketones Negative (Negative) mg/dL Urine Blood Negative (Negative) Urine Nitrite Negative (Negative) Ur Leukocyte Esterase Large (3+) H (Negative) Urine RBC 0-2 (0-2) /HPF Urine WBC >50 H (0-5) /HPF Ur Squamous Epith Cells 6-10 (0-2) /HPF Urine Bacteria 4+ (None Seen) Hyaline Casts 0-2 (0-2) /LPF 08/13/23 Range/Units 18:27 WBC (4.8-10.8) X10*3/uL RBC (4.20-5.50) X10*6/uL Hgb (12.0-16.0) g/dl Hct (37.0-47.0) % MCV (80.0-98.0) fL MCH (27.0-33.0) pg MCHC (31.0-35.0) g/dl RDW (11.0-16.0) % Plt Count (160-400) X10*3/uL MPV (9.4-12.3) fL Immature Gran % (Auto) (0.0-0.4) % Neut % (Auto) (45-73) % Lymph % (Auto) (20-40) % [place] % (Auto) (2-11) % Eos % (Auto) (0-4) % Baso % (Auto) (0-2) % Lymph # (Auto) (1.2-4.9) X10*3/uL [place] # (Auto) (0.1-1.2) X10*3/uL Eos # (Auto) (0.0-0.4) X10*3/uL Baso # (Auto) (0.0-0.2) X10*3/uL Abs Immat Gran (auto) (0.00-0.03) X10*3/uL Absolute Neuts (auto) (2.0-8.3) x10*3/uL Absolute Nucleated RBC (0.0-0.012) X10*3/uL Nucleated RBC % (auto) (0.0-0.2) /100WBC Sodium (135-145) mmol/L Potassium (3.3-5.1) mmol/L Chloride (96-108) mmol/L Carbon Dioxide (22-29) mmol/L Anion Gap (12-20) BUN (9-16) mg/dL Creatinine (0.5-1.4) mg/dL Estim Creat Clear Calc Estimated GFR Random Glucose (60-115) mg/dL Calcium (8.4-10.2) mg/dL Total Bilirubin (0.0-1.0) mg/dL Direct Bilirubin (0.0-0.5) mg/dL AST (5-31) U/L ALT (0-31) U/L Alkaline Phosphatase (39-117) U/L Troponin I High Sens 6.1 (<3.5-17.0) ng/L C-Reactive Protein (< or = 0.50) mg/dL Total Protein (6.5-8.0) g/dL Albumin (3.5-5.0) g/dL Lipase (8-78) U/L Urine Color Urine Appearance Urine pH (5.0-9.0) Ur Specific [place] (1.005-1.025) Urine Protein (Neg-Trace) mg/dL Urine Glucose (UA) (Negative) mg/dL Urine Ketones (Negative) mg/dL Urine Blood (Negative) Urine Nitrite (Negative) Ur Leukocyte Esterase (Negative) Urine RBC (0-2) /HPF Urine WBC (0-5) /HPF Ur Squamous Epith Cells (0-2) /HPF Urine Bacteria (None Seen) Hyaline Casts (0-2) /LPF Discharge Plan Discharge Clinical Impression: Acute epigastric pain, Urinary tract infection Patient Disposition: Home, Self-Care Instructions: Gastritis (DC), Epigastric Pain (ED) Additional Instructions: Your testing in the emergency department has been largely reassuring. My suspicion is that your pain is most likely some kind of stomach acid related pain. Please continue to take your pantoprazole as well as your other medications. It might be good to get some kind of yjeu-zni-yhzdiio antacid in your house that you could try few have some mild recurrent severe pain. Mylanta might be useful. Please plan on contacting her regular doctor's office tomorrow to make a follow- up appointment sometime in the next few days or next week. However if you have any significant return of the pain, especially if you are quite uncomfortable, please return to the emergency room for another evaluation. Altered return to the emergency department if you feel you have developed any black stools. Prescriptions: New cephalexin 500 mg capsule 500 mg PO BID Qty: 10 0RF No Action clopidogrel 75 mg tablet 75 mg PO DAILY 7 Days Qty: 90 3RF atorvastatin 40 mg tablet 40 mg PO QPM Qty: 90 5RF chlorthalidone 25 mg tablet 25 mg PO DAILY Qty: 90 3RF carvedilol 3.125 mg tablet 3.125 mg PO BID 10 Days Qty: 180 0RF Protocol: Hold for SBP/HR < HOLD for SBP < : 90 HOLD for HR < : 60 pantoprazole 40 mg tablet,delayed release (DR/EC) 40 mg PO DAILY@0630 Qty: 90 3RF benzonatate 200 mg capsule 200 mg PO TID PRN (Reason: cough) Qty: 20 0RF ergocalciferol (vitamin D2) 1,250 mcg (50,000 unit) capsule 1,250 mcg PO Q14D lorazepam 0.5 mg tablet 0.5 mg PO DAILY PRN (Reason: Anxiety) Qty: 60 0RF (DME) comp.stocking,knee,long,medium Misc See Rx Instructions .Route Qty: 2 0RF Rx Instructions: As directed hydralazine 25 mg tablet 25 mg PO BID ketorolac 0.5 % drops ophthalmic (eye) nifedipine 30 mg tablet extended release 24hr 30 mg PO DAILY
[2023-08-13 16:32] LABS: Alanine Aminotransferase 27 U/L (0-31); Albumin Level 3.9 g/dL (3.5-5.0); Alkaline Phosphatase 146 U/L (39-117); Anion Gap 12 (12-20); Aspartate Amino Transferase 50 U/L (5-31); Bilirubin Direct 0.1 mg/dL (0.0-0.5); Bilirubin Total 0.3 mg/dL (0.0-1.0); Blood Urea Nitrogen 31 mg/dL (9-16); Calcium 9.3 mg/dL (8.4-10.2); Carbon Dioxide 20 mmol/L (22-29); Chloride 114 mmol/L (96-108); Estimated Glomerular Filt Rate 38; Glucose Random 119 mg/dL (60-115); Lipase 15 U/L (8-78); Potassium 5.1 mmol/L (3.3-5.1); Sodium 141 mmol/L (135-145); Total Protein 7.2 g/dL (6.5-8.0)
[2023-08-13 16:48] LABS: Basophils Percent Auto 0.3 % (0-2); Eosinophils Absolute Auto 0.2 X10*3/uL (0.0-0.4); Eosinophils Percent Auto 1.9 % (0-4); Hematocrit 33.8 % (37.0-47.0); Imm Gran Abs Auto 0.02 X10*3/uL (0.00-0.03); Imm Gran Pct Auto 0.3 % (0.0-0.4); Lymphocytes Absolute Auto 0.8 X10*3/uL (1.2-4.9); Lymphocytes Percent Auto 10.6 % (20-40); Mean Corpuscular HGB Conc 32.5 g/dl (31.0-35.0); Mean Corpuscular Hemoglobin 30.6 pg (27.0-33.0); Mean Corpuscular Volume 93.9 fL (80.0-98.0); Mean Platelet Volume 9.5 fL (9.4-12.3); Monocytes Absolute Auto 0.6 X10*3/uL (0.1-1.2); Monocytes Percent Auto 7.1 % (2-11); Neutrophils Absolute Auto 6.2 x10*3/uL (2.0-8.3); Neutrophils Percent Auto 79.8 % (45-73); Platelet Count 202 X10*3/uL (160-400); Red Cell Distribution Width 12.9 % (11.0-16.0); White Blood Count 7.7 X10*3/uL (4.8-10.8)
[2023-08-13 17:05] LABS: Appearance Urine Cloudy; Color Urine Yellow; Glucose Urine UA Negative (Negative); Leukocyte Esterase Urine Large (3+) (Negative); Nitrite Urine Negative (Negative); PH 5.5 (5.0-9.0); Specific Gravity - Urine 1.015 (1.005-1.025); UMIC TRIGGER UACC YES; Urine Blood Negative (Negative); Urine Ketones Negative (Negative); Urine Protein 30 (1+) mg/dL (Neg-Trace)
[2023-08-13 17:08] LABS: Bacteria Urine 4+ (None Seen); Hyaline Casts Urine 0-2 /LPF (0-2); RBC Urine 0-2 /HPF (0-2); UACC Culture Trigger YES; WBC Urine >50 /HPF (0-5)
[2023-08-13] MEDS: ondansetron HCL 4 MG/2 ML VIAL IVPUSH (17:44)
[2023-08-13] MEDS: Famotidine/PF 20 MG/2 ML VIAL IVPUSH (17:44)
[2023-08-13 18:26] LABS: MANUAL DIFF FLAG NO
[2023-08-13 18:41] LABS: C Reactive Protein 0.51 mg/dL (< or = 0.50)
[2023-08-13 19:04] LABS: Troponin-I High Sensitivity 6.1 ng/L (<3.5-17.0)
[2023-08-13 20:25] VITALS: BP 158/65; PULSE 60; RESP 16; TEMP 36.8; O2SAT 95
[2023-08-13] MEDS: cephALEXin 500 MG CAPSULE PO (20:33)
--- NOTE | 2023-08-13 20:47 | PC.NURSE ---
pt medicated according to nov. iv removed. pt ambulatory and provided with discharge packet. pt verbalized understanding of discharge plan. 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
== END 2023-08-13 20:55 | disposition home or self-care (01) ==
PROVIDERS: Physician Assistant Medical; Emergency Provider Emergency Medicine; PCP Internal Medicine
DX: R10.13 Epigastric pain (principal); N39.0 Urinary tract infection, site not specified; I10 Essential (primary) hypertension; E78.5 Hyperlipidemia, unspecified; Z90.49 Acquired absence of other specified parts of digestive tract; Z87.891 Personal history of nicotine dependence; Z79.899 Other long term (current) drug therapy; Z79.02 Long term (current) use of antithrombotics/antiplatelets
CPT/HCPCS: 36415; 71046; 76705; 80053; 80076; 81001; 81003; 82248; 83690; 84484; 85025; 86140; 87086; 87088; 87186; 93005; 96374; 96375; 99284; 99285; J2405

== ENCOUNTER 2023-08-22 11:00 | Outpatient (AMB) | payer MEDICARE, SELFPAY ==
[2023-08-22 11:01] VITALS: BP 160/70; PULSE 60; O2SAT 99; BMI 27.7
--- NOTE | 2023-08-22 11:01 | MHC.PC.OV ---
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 Allergies No Known Drug Intolerances Allergy (Unknown, Verified 08/22/23 11:01) NOT APPLICABLE Medication List - Last Reconciled 08/22/23 by Devin Hall MD atorvastatin 40 mg PO QPM benzonatate 200 mg PO TID PRN carvedilol 3.125 mg See Protocol PO BID 10 days cephalexin 500 mg PO BID chlorthalidone 25 mg PO DAILY clopidogrel 75 mg PO DAILY 7 days comp.stocking,knee,long,medium As directed ergocalciferol (vitamin D2) 1,250 mcg PO Q14D hydralazine 25 mg PO BID ketorolac 0.5% drps ophthalmic (eye) lorazepam 0.5 mg PO DAILY PRN nifedipine ER 30 mg PO DAILY pantoprazole 40 mg PO DAILY@0630 Tobacco use date assessed: 05/13/23 Fall risk assessment: 1 Fall in past year Last assessed Fall Risk: 08/22/23 Dental Screening Dental Screen Date: 08/22/23 Did you have a dental visit in the last 12 months?: Yes Did you have a dental problem in the last 6 months where you did not have access to dental care?: No Was dental information given to patient?: Patient has dentist H[place] [facility] [place] ABD pain & nausea HPI Details went to the er with a uti; rx'd and feeling better PFSH Medical History COVID-19 Cerebral microvascular disease Cerebral infarction Anemia Bradycardia Hypertension Aortic stenosis Biliary colic Hypertension Hyperlipidemia Surgical History History of cholecystectomy S/P laparoscopic cholecystectomy Hammertoe, bilateral Total knee replacement status Family History Father Heart disease Mother No problems noted. Brother Heart disease Social History Household Members: Spouse Housing: House Do you presently have visiting nurse or other home services: No Unable to assess alcohol history related to: Unknown Alcohol intake: current Alcohol intake frequency: holidays/special occasions only Alcohol type: hard liquor Comment: no fluids given po Patient Tobacco Use Status: Former Tobacco user Quit Date: 1981 Tobacco use type: Cigarette Years Smoked: 25 e-Cigarette/Vaping Use: Never Used Second Hand Smoke Exposure: No Advance Directives Date on File: 02/17/21 service: No Current occupational status: retired Cognitive needs: Yes (walker, wheel chair, cane) Hearing needs: No Vision needs: Yes (glasses) Questionnaire Thrive Questionnaire Date Thrive assessed: 05/13/23 VY-7 AMB Questionnaire VY-7 Date VY - 7 assessed: 05/13/23 Source: Developed by Drs. Chris Madison, Felicia Zambrano, Brett Ruiz and colleagues, with an educational helga from [email or web address]. Review of Systems Const Denies chills, Denies headache(s) and Denies weight loss ENT Denies headache(s) Card Denies chest pain, Denies syncope, Denies irregular heart rhythm and Denies dyspnea Resp Denies chest congestion, Denies cough and Denies dyspnea GI Denies abdominal pain, Denies change in stool character, Denies nausea and Denies vomiting Musc Denies deformity and Denies joint swelling Neuro Denies syncope and Denies headache(s) Physical exam (Primary Care) Vital Signs: Last Vital Signs Pulse 60 08/22/23 11:01 BP 160/70 H 08/22/23 11:01 Pulse Ox 99 08/22/23 11:01 Oxygen Delivery Method Room Air 08/22/23 11:01 BMI result Body Mass Index 27.7 Tobacco/Smoking Status: Tobacco use Status Tobacco use date assessed 05/13/23 08/22/23 11:02 Patient Tobacco Use Status Former Tobacco user 08/22/23 11:02 Tobacco use type Cigarette 08/22/23 11:02 e-Cigarette/Vaping Use Never Used 08/22/23 11:02 Thrive Assessment: Date of Thrive Assessment Date Thrive assessed 05/13/23 08/22/23 11:02 Const General: cooperative, comfortable, no acute distress and alert Neck Neck: Yes no lymphadenopathy Thyroid: Thyroid normal Resp Effort & Inspection: normal respiratory effort Auscultation: clear to auscultation bilaterally Percussion: percussion normal Cardio Jugular venous distension: no JVD Palpation: normal PMI Rate: regular rate Rhythm: regular rhythm Heart sounds: S1 normal heart sound present and S2 normal heart sound present GI Inspection: Yes normal to inspection Palpation (GI): No hepatosplenomegaly present Skin General skin exam: no rashes or lesions noted Extrem General: Yes no clubbing, cyanosis or edema Assessment and Plan Assessment & Plan (1) UTI (urinary tract infection): Code(s): N39.0 - Urinary tract infection, site not specified Plan: resolved Coding Level of Care Code Est Pt Level 3 (54222) Diagnoses UTI (urinary tract infection) N39.0
== END 2023-08-22 11:58 | disposition home or self-care (01) ==
PROVIDERS: PCP Internal Medicine; Visit Provider Internal Medicine
DX: N39.0 Urinary tract infection, site not specified (principal)
CPT/HCPCS: 99213

== ENCOUNTER 2023-12-23 09:27 | Outpatient (AMB) | payer MEDICARE, SELFPAY ==
[2023-12-23 09:32] VITALS: BP 170/80; PULSE 60; BMI 28.6
--- NOTE | 2023-12-23 09:32 | MHC.OFFVIS ---
Intake Vital Signs 12/23/23 09:32 Height 5 ft Weight 146 lb 6.191 oz BMI 28.6 BP 170/80 H Blood Pressure Location Lt brachial Position Sitting Pulse 60 Pulse Source Monitor Intake Visit Reasons: 6 month f/u KM Intake Note: 6 month follow up with EKG PT feels tightness in chest and is nervous Allergies No Known Drug Intolerances Allergy (Unknown, Verified 08/22/23 11:01) NOT APPLICABLE Medication List - Last Reconciled 12/23/23 by Sloane Sandra, RECEIVABLE CLERK-C atorvastatin 40 mg PO QPM benzonatate 200 mg PO TID PRN carvedilol 3.125 mg See Protocol PO BID 90 days chlorthalidone 25 mg PO DAILY clopidogrel 75 mg PO DAILY 7 days comp.stocking,knee,long,medium As directed ergocalciferol (vitamin D2) 1,250 mcg PO Q14D hydralazine 25 mg PO BID ketorolac 0.5% drps ophthalmic (eye) lorazepam 0.5 mg PO DAILY PRN nifedipine ER 30 mg PO DAILY pantoprazole 40 mg PO DAILY@0630 HPI 6 month f/u KM HPI Details Nickie is an 87-year-old female past medical history of hypertension, hyperlipidemia, leg edema who presents for follow-up. Today she is tearful and anxious at this visit. She tells me she lost her 2 months ago. She also describes that she lost her brother within the last year and her sister had a heart stent placed. She has been experiencing much anxiety and grief. She will notice tightness in her chest at this time. She has lorazepam which she takes and it helps her symptoms. No chest discomfort brought on by physical activity. No heart palpitations, lightheadedness, presyncope, syncope, falls. No shortness of breath, PND, orthopnea. She does have chronic mild lower leg edema which has been unchanged recently. Taking all meds as directed. Tells me her daughter lives nearby and has been a good support system for her. Ambulates with a walker. [facility] Medical History COVID-19 Cerebral microvascular disease Cerebral infarction Anemia Bradycardia Hypertension Aortic stenosis Biliary colic Hypertension Hyperlipidemia Surgical History History of cholecystectomy S/P laparoscopic cholecystectomy Hammertoe, bilateral Total knee replacement status Family History Father Heart disease Mother No problems noted. Brother Heart disease Social History Household Members: Spouse Housing: House Do you presently have visiting nurse or other home services: No Unable to assess alcohol history related to: Unknown Alcohol intake: current Alcohol intake frequency: holidays/special occasions only Alcohol type: hard liquor Comment: no fluids given po Patient Tobacco Use Status: Former Tobacco user Quit Date: 1981 Tobacco use type: Cigarette Years Smoked: 25 e-Cigarette/Vaping Use: Never Used Second Hand Smoke Exposure: No Advance Directives Date on File: 02/17/21 service: No Current occupational status: retired Cognitive needs: Yes (walker, wheel chair, cane) Hearing needs: No Vision needs: Yes (glasses) Review of Systems Const Details: anxiety, grief over loss of All systems reviewed & are unremarkable except as noted in HPI and below Denies weakness ENT Denies dizziness Card Details: Chest Tightness, Dizziness Denies chest pain, Denies chest pain with activity, Denies syncope, Denies rapid heart rate, Denies pedal edema, Denies edema, Denies leg edema, Denies lightheadedness, Denies palpitations, Denies dyspnea, Denies dyspnea on exertion and Denies orthopnea Resp Denies cough, Denies dyspnea and Denies dyspnea on exertion GI Denies hematochezia and Denies change in stool character Musc Denies abnormal gait, Denies muscle cramps, Denies muscle weakness, Denies numbness, Denies radiating pain into limb and Denies tingling Neuro Denies abnormal gait, Denies dizziness, Denies syncope, Denies numbness, Denies tingling and Denies weakness Endo Denies palpitations Physical Exam Vital Signs: Last Vital Signs Pulse 60 12/23/23 09:32 BP 170/80 H 12/23/23 09:32 BMI result Body Mass Index 28.6 Const Other: emotionally upset and tearful General: no acute distress Orientation/consciousness: patient oriented x3 Neck Neck: Yes normal visual inspection and Yes no JVD Resp Effort & Inspection: normal respiratory effort Auscultation: clear to auscultation bilaterally, no crackles, no rales, no rhonchi and no wheezes Cardio Jugular venous distension: no JVD Rate: regular rate Rhythm: regular rhythm Heart sounds: S1 normal heart sound present, S2 normal heart sound present, no murmurs and no rubs Neuro General: patient oriented x3 Extrem General: Yes normal to inspection, No no pedal edema and No calf tenderness Psych Appearance: grossly normal Mental Status: mental status grossly normal Speech and movement: Normal speech and movement present Office Procedures EKG Details: Today, read by me, Sinus bradycardia, rate 55, QTc 396ms [id number], Complete Assessment & Plan Assessment & Plan (1) Hypertension: Code(s): I10 - Essential (primary) hypertension Plan: History of hypertension. Blood pressure elevated at this visit. Patient is upset and tearful at this time which can account for elevated reading. She tells me her blood pressure at home typically runs 135/75. In the recent past her nifedipine was reduced from 90 mg daily down to 30 mg daily. She has been taking all her meds as directed. Her hydralazine is currently at 25 mg b.i.d.. Informed her that she can take an additional dose in the mid day if her blood pressure is elevated with systolic reading greater than 140. Recommended periodic checks throughout the day. Reviewed low-salt intake, stress reduction activities. Cardiology follow-up 2 months, sooner if needed. Instructed to call if her blood pressure reading remains elevated at home in spite of additional hydralazine. (2) Hyperlipidemia: Code(s): E78.5 - Hyperlipidemia, unspecified Plan: [place] LDL goal less than 100. Labs done 05/07/2023 showed LDL 70. Continue atorvastatin 40 mg daily which she does tolerate well. (3) Chest tightness: Code(s): R07.89 - Other chest pain Plan: Report of chest tightness with anxiety in recent months. No exertional chest discomfort. EKG done today show sinus bradycardia, no acute ST or T-wave abnormalities, rate 55. This could be related to elevated blood pressure readings or just anxiety itself. She has antianxiety agents that she can use as needed. Will be having her take additional hydralazine for elevated blood pressures at home. If she continues to report symptoms then nuclear stress test may be indicated. Cardiology follow-up in 1 month, sooner if needed (4) Anxiety: Code(s): F41.9 - Anxiety disorder, unspecified Plan: As above (5) Grief: Code(s): F43.21 - Adjustment disorder with depressed mood Plan: Recent loss of her and brother. She states her daughter is a good support system for her Plan Time spent on chart review, documentation, interview, assessment, soothing patient. Coding Level of Care Code Est Pt Level 4 (49713) Diagnoses Hypertension I10 Hyperlipidemia E78.5 Chest tightness R07.89 Anxiety F41.9 Grief F43.21 CPT Codes EKG - CPT: 94196-[id number], Complete ([id number]) Time Spent (min) 30
== END 2023-12-23 10:38 | disposition home or self-care (01) ==
PROVIDERS: PCP Internal Medicine; Visit Provider Nurse Practitioner Family
DX: I10 Essential (primary) hypertension (principal); E78.5 Hyperlipidemia, unspecified; R07.89 Other chest pain; F41.9 Anxiety disorder, unspecified; F43.21 Adjustment disorder with depressed mood
CPT/HCPCS: 93010; 99214

== ENCOUNTER → 2023-12-23 09:27 | Outpatient (BNVA) | payer MEDICARE, SELFPAY | PROVIDERS: PCP Internal Medicine; Visit Provider Nurse Practitioner Family | DX: I10 Essential (primary) hypertension (principal); R07.89 Other chest pain; E78.5 Hyperlipidemia, unspecified; F41.9 Anxiety disorder, unspecified; F43.21 Adjustment disorder with depressed mood | CPT/HCPCS: 93005; 99212 ==

== ENCOUNTER 2024-02-25 08:50 | Outpatient (AMB) | payer MEDICARE, SELFPAY ==
[2024-02-25 09:01] VITALS: BP 142/60; PULSE 54; BMI 28.2
--- NOTE | 2024-02-25 09:01 | MHC.OFFVIS ---
Vital Signs 02/25/24 09:01 Height 5 ft Weight 144 lb 9.972 oz BMI 28.2 BP 142/60 H Blood Pressure Location Lt brachial Position Sitting Pulse 54 Pulse Source Pulse Oximeter Intake Visit Reasons: 2 mth fu Oil Heater Installer Required: No Allergies No Known Drug Intolerances Allergy (Unknown, Verified 02/25/24 09:03) NOT APPLICABLE Medication List - Last Reconciled 02/25/24 by Sloane Sandra, AGENCY SERVICE COORDINATOR-C atorvastatin 40 mg PO QPM benzonatate 200 mg PO TID PRN carvedilol 3.125 mg See Protocol PO BID 90 days chlorthalidone 25 mg PO DAILY clopidogrel 75 mg PO DAILY 7 days comp.stocking,knee,long,medium As directed ergocalciferol (vitamin D2) 1,250 mcg PO Q14D hydralazine 25 mg PO BID lorazepam 0.5 mg PO DAILY PRN nifedipine ER 30 mg PO DAILY pantoprazole 40 mg PO DAILY@0630 HPI HPI 2 mth fu: Details: Nickie is an 88-year-old female past medical history of hypertension, hyperlipidemia, leg edema who presents for follow-up. Today she she reports that she has been feeling better lately. She did lose her a few months ago but is currently tolerating this better. She no longer has any chest discomfort. She previously had a tightness when she was anxious. Lorazepam would relieve that symptom when it occurred. No chest discomfort brought on by physical activity. No heart palpitations, lightheadedness, presyncope, syncope, falls. No shortness of breath, PND, orthopnea. She does have chronic mild lower leg edema which has been unchanged recently. Has been working on her garden and hess. Taking all meds as directed. Ambulates with a walker. [facility] Medical History COVID-19 Cerebral microvascular disease Cerebral infarction Anemia Bradycardia Hypertension Aortic stenosis Biliary colic Hypertension Hyperlipidemia Surgical History History of cholecystectomy S/P laparoscopic cholecystectomy Hammertoe, bilateral Total knee replacement status Family History Father Heart disease Mother No problems noted. Brother Heart disease Social History Household Members: Spouse Housing: House Do you presently have visiting nurse or other home services: No Unable to assess alcohol history related to: Unknown Alcohol intake: current Alcohol intake frequency: holidays/special occasions only Alcohol type: hard liquor Comment: no fluids given po Patient Tobacco Use Status: Former Tobacco user Tobacco use type: Cigarette Years Smoked: 25 e-Cigarette/Vaping Use: Never Used Second Hand Smoke Exposure: No Advance Directives Date on File: 02/17/21 service: No Current occupational status: retired Cognitive needs: Yes (walker, wheel chair, cane) Hearing needs: No Vision needs: Yes (glasses) Review of Systems Const All systems reviewed & are unremarkable except as noted in HPI and below ENT Denies dizziness Card Denies chest pain, Denies chest pain at rest, Denies chest pain with activity, Denies rapid heart rate, Denies pedal edema, Denies edema, Denies leg edema, Denies lightheadedness, Denies palpitations, Denies dyspnea, Denies dyspnea on exertion and Denies orthopnea Resp Denies cough, Denies dyspnea and Denies dyspnea on exertion GI Denies hematochezia and Denies change in stool character Musc Denies abnormal gait, Denies limited range of motion, Denies muscle cramps, Denies muscle weakness, Denies numbness, Denies radiating pain into limb, Denies stiffness and Denies tingling Neuro Denies abnormal gait, Denies dizziness, Denies numbness and Denies tingling Endo Denies palpitations Physical Exam Vital Signs: Last Vital Signs Pulse 54 02/25/24 09:01 BP 142/60 H 02/25/24 09:01 BMI result Body Mass Index 28.2 Const General: healthy appearing, comfortable and no acute distress Orientation/consciousness: patient oriented x3 Neck Neck: Yes normal visual inspection and Yes no JVD Resp Effort & Inspection: normal respiratory effort Auscultation: clear to auscultation bilaterally, no crackles, no rales, no rhonchi and no wheezes Cardio Jugular venous distension: no JVD Rate: regular rate Rhythm: regular rhythm Heart sounds: S1 normal heart sound present, S2 normal heart sound present, no murmurs and no rubs Neuro General: patient oriented x3 Extrem General: Yes normal to inspection, No no pedal edema and No calf tenderness Psych Appearance: grossly normal Mental Status: mental status grossly normal Speech and movement: Normal speech and movement present Assessment & Plan Assessment & Plan (1) Hypertension: Code(s): I10 - Essential (primary) hypertension Category: Medical Plan: History of hypertension. Blood pressure elevated last visit when she was upset and tearful over the loss of her . Blood pressure today is acceptable at 142/60. She tells me her blood pressure at home typically runs 135/75. With her advanced age a systolic blood pressure 130 to a high of 150 is reasonable. She is currently on nifedipine 30 mg daily, carvedilol 3.125 mg b.i.d., hydralazine 25 mg b.i.d.. Recommended periodic blood pressure checks. If running high with systolic greater than 150 she can take additional hydralazine 25 mg in the mid day. Reviewed low-salt intake, continue stress reduction activities. Cardiology follow-up 6 months, sooner if needed. (2) Hyperlipidemia: Code(s): E78.5 - Hyperlipidemia, unspecified Category: Medical Plan: [place] LDL goal less than 100. Labs done 05/07/2023 showed LDL 70. Continue atorvastatin 40 mg daily which she does tolerate well. (3) Chest tightness: Code(s): R07.89 - Other chest pain Category: Medical Plan: On last visit reported chest tightness with anxiety. Her symptom would relieve with the use of antianxiety agents. She was under high stress at that time. No exertional chest discomfort. EKG done last visit show sinus bradycardia, no acute ST or T-wave abnormalities, rate 55. This time she denies any chest discomfort or recurrent tightness. She has been feeling better now that she can work outside in her flower and garden bed. If she does report recurrent symptoms then test test can be considered. Plan Time spent on chart review, documentation, interview, assessment. Coding Level of Care Code Est Pt Level 4 (28540) Diagnoses Hypertension I10 Hyperlipidemia E78.5 Chest tightness R07.89 Time Spent (min) 30
== END 2024-02-25 09:22 | disposition home or self-care (01) ==
PROVIDERS: PCP Internal Medicine; Visit Provider Nurse Practitioner Family
DX: I10 Essential (primary) hypertension (principal); E78.5 Hyperlipidemia, unspecified; R07.89 Other chest pain
CPT/HCPCS: 99214

== ENCOUNTER → 2024-02-25 08:50 | Outpatient (BNVA) | payer MEDICARE, SELFPAY | PROVIDERS: PCP Internal Medicine; Visit Provider Nurse Practitioner Family | DX: I10 Essential (primary) hypertension (principal); E78.5 Hyperlipidemia, unspecified; R07.89 Other chest pain | CPT/HCPCS: 99212 ==

== ENCOUNTER 2024-05-19 08:58 | Outpatient (REF) | payer MEDICARE, SELFPAY ==
[2024-05-19 09:20] LABS: MANUAL DIFF FLAG NO
[2024-05-19 09:37] LABS: Basophils Percent Auto 0.6 % (0-2); Eosinophils Absolute Auto 0.1 X10*3/uL (0.0-0.4); Eosinophils Percent Auto 1.2 % (0-4); Hematocrit 35.2 % (37.0-47.0); Hemoglobin 11.8 g/dl (12.0-16.0); Imm Gran Abs Auto 0.02 X10*3/uL (0.00-0.03); Imm Gran Pct Auto 0.3 % (0.0-0.4); Lymphocytes Absolute Auto 1.3 X10*3/uL (1.2-4.9); Lymphocytes Percent Auto 18.7 % (20-40); Mean Corpuscular HGB Conc 33.5 g/dl (31.0-35.0); Mean Corpuscular Hemoglobin 31.1 pg (27.0-33.0); Mean Corpuscular Volume 92.9 fL (80.0-98.0); Mean Platelet Volume 9.4 fL (9.4-12.3); Monocytes Absolute Auto 0.6 X10*3/uL (0.1-1.2); Monocytes Percent Auto 8.9 % (2-11); Neutrophils Absolute Auto 4.9 x10*3/uL (2.0-8.3); Neutrophils Percent Auto 70.3 % (45-73); Platelet Count 228 X10*3/uL (160-400); Red Blood Count 3.79 X10*6/uL (4.20-5.50); Red Cell Distribution Width 12.7 % (11.0-16.0); White Blood Count 6.9 X10*3/uL (4.8-10.8)
[2024-05-19 10:32] LABS: Appearance Urine Turbid; Color Urine Yellow; Glucose Urine UA Negative (Negative); Leukocyte Esterase Urine Moderate (2+) (Negative); Nitrite Urine Negative (Negative); PH 5.5 (5.0-9.0); UMIC TRIGGER UA YES; Urine Blood Negative (Negative); Urine Ketones Trace mg/dL (Negative); Urine Protein 30 (1+) mg/dL (Neg-Trace)
[2024-05-19 10:33] LABS: Alanine Aminotransferase 33 U/L (0-31); Albumin Level 4.4 g/dL (3.5-5.0); Alkaline Phosphatase 198 U/L (39-117); Anion Gap 17 (12-20); Anion Gap 18 (12-20); Aspartate Amino Transferase 37 U/L (5-31); Bilirubin Total 0.4 mg/dL (0.0-1.0); Blood Urea Nitrogen 31 mg/dL (9-16); Calcium 10.1 mg/dL (8.4-10.2); Calcium 9.9 mg/dL (8.4-10.2); Carbon Dioxide 20 mmol/L (22-29); Carbon Dioxide 22 mmol/L (22-29); Chloride 109 mmol/L (96-108); Cholesterol 133 mg/dL (<200); Estimated Glomerular Filt Rate 33; Estimated Glomerular Filt Rate 34; Glucose Fasting 104 mg/dL (60-99); HDL Cholesterol 39 mg/dL (>40); LDL Cholesterol Calculated 62 mg/dL (<100); Potassium 4.7 mmol/L (3.3-5.1); Sodium 142 mmol/L (135-145); Sodium 143 mmol/L (135-145); Total Protein 7.4 g/dL (6.5-8.0); Triglycerides 163 mg/dL (<150)
[2024-05-19 10:36] LABS: Bacteria Urine 4+ (None Seen); RBC Urine 0-2 /HPF (0-2); Squamous Epithelial Cell Urine >20 /HPF (0-2); WBC Urine 21-50 /HPF (0-5)
[2024-05-19 11:12] LABS: Creatinine Urine 141.62 mg/dL; Microalbum/Creatinine Ratio Ur 120.7 ug/mg cr (<30); Protein/Creatinine Ratio, Ur 0.23 (<0.2); Total Protein Urine Random 33 mg/dL (<12)
== END 2024-05-19 08:59 | disposition home or self-care (01) ==
LOC: HO.LAB 08:58
PROVIDERS: Absent Provider Internal Medicine Nephrology; PCP Internal Medicine; Visit Provider Internal Medicine
DX: Z13.0 Encounter for screening for diseases of the blood and blood-forming organs and certain disorders involving the immune mechanism (principal); Z13.220 Encounter for screening for lipoid disorders; Z13.29 Encounter for screening for other suspected endocrine disorder; Z13.9 Encounter for screening, unspecified; N18.31 Chronic kidney disease, stage 3a
CPT/HCPCS: 36415; 80051; 80053; 80061; 81001; 82043; 82310; 82565; 82570; 84156; 84443; 84520; 85025

== ENCOUNTER 2024-05-20 09:55 | Outpatient (AMB) | payer MEDICARE, SELFPAY ==
[2024-05-20 09:57] VITALS: BP 138/60; PULSE 59; O2SAT 98; BMI 26.9
--- NOTE | 2024-05-20 09:57 | A.OFFPC_ITS ---
Vital Signs 05/20/24 09:57 Height 5 ft Weight 138 lb BMI 26.9 BP 138/60 Blood Pressure Location Lt brachial Position Sitting Pulse 59 Pulse Source Pulse Oximeter Pulse Oximetry (%) 98 Oxygen Delivery Method Room Air Intake Visit Reasons: Annual PE Microgrinder Operator Required: No Accompanied by: Daughter Allergies No Known Drug Intolerances Allergy (Unknown, Verified 05/20/24 09:57) NOT APPLICABLE Medication List - Last Reconciled 05/21/24 by Devin Hall MD atorvastatin 40 mg PO QPM benzonatate 200 mg PO TID PRN carvedilol 3.125 mg See Protocol PO BID 90 days chlorthalidone 25 mg PO DAILY clopidogrel 75 mg PO DAILY 7 days comp.stocking,knee,long,medium As directed ergocalciferol (vitamin D2) 1,250 mcg PO Q14D hydralazine 25 mg PO BID lorazepam 0.5 mg PO DAILY PRN nifedipine ER 30 mg PO DAILY pantoprazole 40 mg PO DAILY@0630 Tobacco use date assessed: 05/20/24 Fall risk assessment: 1 Fall in past year Last assessed Fall Risk: 05/20/24 Dental Screening Dental Screen Date: 05/20/24 Did you have a dental visit in the last 12 months?: Yes Did you have a dental problem in the last 6 months where you did not have access to dental care?: No Was dental information given to patient?: Patient has dentist HPI Annual PE HPI Details hyperlipidemia hypertension and chronic gerd; taking rx regularly and compliant [facility] Medical History COVID-19 Cerebral microvascular disease Cerebral infarction Anemia Bradycardia Hypertension Aortic stenosis Biliary colic Hypertension Hyperlipidemia Surgical History History of cholecystectomy S/P laparoscopic cholecystectomy Hammertoe, bilateral Total knee replacement status Family History Father Heart disease Mother No problems noted. Brother Heart disease Social History Household Members: Spouse Housing: House Do you presently have visiting nurse or other home services: No Unable to assess alcohol history related to: Unknown Alcohol intake: current Alcohol intake frequency: holidays/special occasions only Alcohol type: hard liquor Comment: no fluids given po Patient Tobacco Use Status: Former Tobacco user Tobacco use type: Cigarette Years Smoked: 25 e-Cigarette/Vaping Use: Never Used Second Hand Smoke Exposure: No Advance Directives Date on File: 02/17/21 service: No Current occupational status: retired Cognitive needs: Yes (walker, wheel chair, cane) Hearing needs: No Vision needs: Yes (glasses) Questionnaire PHQ-9 Over the last 2 weeks, how often have you been bothered by any of the following problems? 1. Little interest or pleasure in doing things: not at all 2. Feeling down, depressed, or hopeless: not at all 3. Trouble falling or staying asleep, or sleeping too much: not at all 4. Feeling tired or having little energy: not at all 5. Poor appetite or overeating: not at all 6. Feeling bad about yourself - or that you are a failure or have let yourself or your family down: not at all 7. Trouble concentrating on things, such as reading the newspaper or watching television: not at all 8. Moving or speaking so slowly that other people could have noticed. Or the opposite - being so fidgety or restless that you have been moving around a lot more than usual: not at all 9. Thoughts that you would be better off or of hurting yourself in some way: not at all Total score: 0 Depression Screening Interpretation: Negative Depression Screening Done: Yes 04649 - PHQ-9 Billing: Yes Source: Developed by Drs. Chris Madison, Felicia Zambrano, Brett Ruiz and colleagues, with an educational helga from [employer]. Thrive Questionnaire Date Thrive assessed: 05/20/24 I am a: Patient What is your living situation today?: I have a steady place to live THRIVE Score: 0 AUDIT C Alcohol Use Questionnaire (AUDIT-C) 1. How often do you have a drink containing alcohol?: Never Total Score: 0 VY-7 AMB Questionnaire VY-7 Date VY - 7 assessed: 05/20/24 Feeling nervous, anxious, or on edge: 0 = Not at all Not being able to stop or control worryin = Not at all Worrying too much about different things: 0 = Not at all Trouble relaxin = Not at all Being so restless that it is hard to sit still: 0 = Not at all Becoming easily annoyed or irritable: 0 = Not at all Feeling afraid as if something awful might happen: 0 = Not at all Total VY-7 score (0-4 normal; 5-9 mild; 10-14 moderate; 15-21 severe): 0 Source: Developed by Drs. Chris Madison, Felicia Zambrano, Brett Ruiz and colleagues, with an educational helga from [employer]. VY-7 Assessment Billing VY-7 Assessment Tool: VY-7 Assessment 71513 Review of Systems Const Denies chills, Denies fatigue, Denies headache(s) and Denies weight loss Eyes Denies change in vision, Denies diplopia and Denies eye pain ENT Denies vertigo, Denies dizziness, Denies headache(s) and Denies nasal discharge Card Denies chest pain, Denies rapid heart rate and Denies dyspnea on exertion Resp Denies chest congestion, Denies cough, Denies pain with cough and Denies dyspnea on exertion GI Denies abdominal pain, Denies hematochezia and Denies change in bowel habits Musc Denies myalgias, Denies arthralgias and Denies joint swelling Skin/Breast Denies lesions and Denies unusual bruising Neuro Denies vertigo, Denies dizziness, Denies headache(s) and Denies focal weakness Endo Denies fatigue Physical exam (Primary Care) Vital Signs: Last Vital Signs Pulse 59 05/20/24 09:57 BP 138/60 05/20/24 09:57 Pulse Ox 98 05/20/24 09:57 Oxygen Delivery Method Room Air 05/20/24 09:57 BMI result Body Mass Index 26.9 Tobacco/Smoking Status: Tobacco use Status Tobacco use date assessed 05/20/24 05/20/24 10:06 Patient Tobacco Use Status Former Tobacco user 05/20/24 10:06 Tobacco use type Cigarette 05/20/24 10:06 e-Cigarette/Vaping Use Never Used 05/20/24 10:06 PHQ-9: PHQ-9 Score PHQ-9: Total score 0 05/20/24 10:06 Depression Screening Interpretation: Negative Thrive Assessment: Date of Thrive Assessment Date Thrive assessed 05/20/24 05/20/24 10:06 Const General: cooperative, healthy appearing and no acute distress Orientation/consciousness: oriented to person, oriented to place and oriented to time HENMT Head: Yes normal to inspection, Yes normocephalic and Yes atraumatic Mouth: Normal oral and palatal mucosa present and tongue normal Throat: Yes posterior oropharynx normal and Yes uvula midline Eyes General: appearance normal, both eyes and all related structures Neck Neck: Yes normal visual inspection, Yes full ROM and Yes no lymphadenopathy Thyroid: Thyroid normal Carotids: normal carotid upstroke Chest Chest palpation & inspection: normal inspection of the chest Resp Effort & Inspection: normal respiratory effort and able to speak in complete sentences Auscultation: clear to auscultation bilaterally Cardio Jugular venous distension: no JVD Palpation: normal PMI Rate: regular rate Rhythm: regular rhythm Heart sounds: S1 normal heart sound present and S2 normal heart sound present GI Inspection: Yes normal to inspection Palpation (GI): Soft to palpation and No hepatosplenomegaly present Auscultation: normal bowel sounds General: Yes no CVA tenderness Back/Spine/Pelvis Back: no CVA tenderness Skin General skin exam: no rashes or lesions noted Neuro General: oriented to person, oriented to place and oriented to time Extrem General: Yes normal to inspection and Yes full ROM Assessment and Plan Assessment & Plan (1) Physical exam: Code(s): Z00.00 - Encounter for general adult medical examination without abnormal findings Plan: stable; do labs (2) Hypertension: Code(s): I10 - Essential (primary) hypertension Plan: stable; sees neph (3) Hyperlipidemia: Code(s): E78.5 - Hyperlipidemia, unspecified Plan: stable; same rx (4) Chronic GERD: Code(s): K21.9 - Gastro-esophageal reflux disease without esophagitis Plan: ref to gi Orders: Orders Thyroid Stimulating Hormone Today Z13.29 - Encounter for screening for other suspected endocrine disorder Complete Blood Count Auto Diff Today Z13.0 - Encounter for screening for diseases of the blood and blood-forming organs and certain disorders involving the immune mechanism Comprehensive [place]. Panel Fast Today Z13.9 - Encounter for screening, unspecified Lipid Panel Today Z13.220 - Encounter for screening for lipoid disorders Referrals Gastroenterology Referral K21.9 - Gastro-esophageal reflux disease without esophagitis Medications: Refilled lorazepam 0.5 mg PO DAILY PRN 60 tabs 0RF Anxiety Coding Level of Care Code Est Pt Prev Care >65y(68680) Diagnoses Physical exam Z00.00 Hypertension I10 Hyperlipidemia E78.5 Chronic GERD K21.9 Additional Codes VY-7 Assessment Billing - VY-7 Assessment Tool: VY-7 Assessment [id number] ([id number])
== END 2024-05-20 10:19 | disposition home or self-care (01) ==
PROVIDERS: PCP Internal Medicine; Visit Provider Internal Medicine
DX: Z00.00 Encounter for general adult medical examination without abnormal findings (principal); I10 Essential (primary) hypertension; E78.5 Hyperlipidemia, unspecified; K21.9 Gastro-esophageal reflux disease without esophagitis
CPT/HCPCS: 99397

== ENCOUNTER 2024-06-16 09:13 | Outpatient (AMB) | payer MEDICARE, SELFPAY ==
--- NOTE | 2024-06-16 09:18 | A.OFFVIS_ITS ---
Vital Signs 06/16/24 09:19 Height 5 ft Weight 143 lb 4.807 oz BMI 28.0 BP 160/72 H Blood Pressure Location Lt brachial Position Sitting Pulse 57 Pulse Source Monitor Intake Visit Reasons: 6 mth f/up Small Lot Operator Required: No Business Office Manager: Business Office Manager Present Allergies No Known Drug Intolerances Allergy (Unknown, Verified 06/16/24 09:22) NOT APPLICABLE Medication List - Last Reconciled 06/16/24 by Sloane Sandra NP-C atorvastatin 40 mg PO QPM benzonatate 200 mg PO TID PRN carvedilol 3.125 mg See Protocol PO BID 90 days chlorthalidone 25 mg PO DAILY clopidogrel 75 mg PO DAILY 7 days comp.stocking,knee,long,medium As directed ergocalciferol (vitamin D2) 1,250 mcg PO Q14D hydralazine 25 mg PO BID lorazepam 0.5 mg PO DAILY PRN nifedipine ER 30 mg PO DAILY pantoprazole 40 mg PO DAILY@0630 HPI HPI 6 mth f/up: Details: Nickie is an 88-year-old female past medical history of hypertension, hyperlipidemia, aortic stenosis, leg edema who presents for follow-up. Today she she reports that she has been generally well. She has not had any recent chest discomfort at rest or during activity. She does report some epigastric discomfort that occurs randomly and when laying down. She will get this when eating spicy foods. It is relieved by taking Pepto-Bismol or Rolaids. She has history of GERD and takes pantoprazole. She does have an upcoming GI appointment to evaluate GERD. She will have mild shortness of breath if she over exerts. She ambulates with a walker. No PND, orthopnea. She does get mild ankle edema at times which is not new. No heart palpitations, lightheade dness, presyncope, syncope, falls. Has been working on her garden and hess. Taking all meds as directed. Daughter is present. [facility] Medical History (Updated 06/16/24 @ 11:12 by RADHA Hester) Aortic stenosis COVID-19 Cerebral microvascular disease Cerebral infarction Anemia Bradycardia Hypertension Biliary colic Hypertension Hyperlipidemia Surgical History History of cholecystectomy S/P laparoscopic cholecystectomy Hammertoe, bilateral Total knee replacement status Family History Father Heart disease Mother No problems noted. Brother Heart disease Social History Household Members: Spouse Housing: House Do you presently have visiting nurse or other home services: No Unable to assess alcohol history related to: Unknown Alcohol intake: current Alcohol intake frequency: holidays/special occasions only Alcohol type: hard liquor Comment: no fluids given po Patient Tobacco Use Status: Former Tobacco user Tobacco use type: Cigarette Years Smoked: 25 e-Cigarette/Vaping Use: Never Used Second Hand Smoke Exposure: No Advance Directives Date on File: 02/17/21 service: No Current occupational status: retired Cognitive needs: Yes (walker, wheel chair, cane) Hearing needs: No Vision needs: Yes (glasses) Review of Systems Const All systems reviewed & are unremarkable except as noted in HPI and below ENT Denies dizziness Card Denies chest pain, Denies chest pain at rest, Denies chest pain with activity, Denies rapid heart rate, Denies pedal edema, Denies edema, Denies leg edema, Denies lightheadedness, Denies palpitations, Denies dyspnea, Reports dyspnea on exertion and Denies orthopnea Resp Denies cough, Denies dyspnea and Reports dyspnea on exertion GI Denies hematochezia and Denies change in stool character Musc Reports abnormal gait (uses walker), Denies limited range of motion, Denies muscle cramps, Denies muscle weakness, Denies numbness, Denies radiating pain into limb, Denies stiffness and Denies tingling Neuro Reports abnormal gait (uses walker), Denies dizziness, Denies numbness and Denies tingling Endo Denies palpitations Physical Exam Vital Signs: Last Vital Signs Pulse 57 06/16/24 09:19 BP 160/72 H 06/16/24 09:19 BMI result Body Mass Index 28.0 Const General: healthy appearing, comfortable and no acute distress Orientation/consciousness: patient oriented x3 Neck Neck: Yes normal visual inspection and Yes no JVD Resp Effort & Inspection: normal respiratory effort Auscultation: clear to auscultation bilaterally, no crackles, no rales, no rhonchi and no wheezes Cardio Jugular venous distension: no JVD Rate: regular rate Rhythm: regular rhythm Heart sounds: S2 normal heart sound present, Murmur heart sound present (2/6 systolic) and no rubs Neuro General: patient oriented x3 Extrem General: Yes normal to inspection, No no pedal edema and No calf tenderness Psych Appearance: grossly normal Mental Status: mental status grossly normal Speech and movement: Normal speech and movement present Office Procedures EKG Details: Today, read by me, sinus bradycardia, rate 57, QTC 393 milliseconds [id number], Complete Assessment & Plan Assessment & Plan (1) Hypertension: Code(s): I10 - Essential (primary) hypertension Category: Medical Plan: History of hypertension. Blood pressure elevated this visit. She reports having anxiety when coming to office visits. She did take her medications today. Blood pressure rechecked after sitting for 15 minutes was 142/62. She says this is typical for her. With her advanced age a systolic blood pressure 130 to a high of 150 is reasonable. She is currently on nifedipine 30 mg daily, carvedilol 3.125 mg b.i.d., hydralazine 25 mg b.i.d.. Recommended periodic blood pressure checks. If running high with systolic greater than 150 she can take additional hydralazine 25 mg in the mid day. This was suggested last visit and she has not needed to take additional medication as home blood pressures are lower. Reviewed low-salt intake. Cardiology follow-up 6 months, sooner if needed. (2) Hyperlipidemia: Code(s): E78.5 - Hyperlipidemia, unspecified Category: Medical Plan: [place] LDL goal less than 100. Labs done 05/19/2024 showed LDL 62. Continue atorvastatin 40 mg daily which she does tolerate well. (3) Aortic stenosis: Code(s): I35.0 - Nonrheumatic aortic (valve) stenosis Category: Medical Plan: History of aortic stenosis. Last echocardiogram done 03/05/2022 showed EF 60- 65%, mild aortic stenosis and regurgitation. She does have a 2/6 systolic murmur noted on examination. Will update echocardiogram and plan to call her with results. (4) Shortness of breath: Code(s): R06.02 - Shortness of breath Category: Medical Plan: Mild shortness of breath with physical exertion. Updating echo as above. (5) Chronic GERD: Code(s): K21.9 - Gastro-esophageal reflux disease without esophagitis Category: Medical Plan: She describes epigastric symptoms which do sound like GERD. Less likely to be cardiac related. She does have an upcoming GI visit with Dr. Perla. Plan Time spent on chart review, documentation, interview, assessment. Orders: Orders CA echo transthoracic complete Today I35.0 - Nonrheumatic aortic (valve) stenosis, R06.02 - Shortness of breath Coding Level of Care Code Est Pt Level 4 (96634) Diagnoses Hypertension I10 Hyperlipidemia E78.5 Aortic stenosis I35.0 Shortness of breath R06.02 Chronic GERD K21.9 CPT Codes EKG - CPT: 37309-[id number], Complete ([id number]) Time Spent (min) 30
[2024-06-16 09:19] VITALS: BP 160/72; PULSE 57; BMI 28.0
== END 2024-06-16 10:01 | disposition home or self-care (01) ==
PROVIDERS: PCP Internal Medicine; Visit Provider Nurse Practitioner Family
DX: I10 Essential (primary) hypertension (principal); E78.5 Hyperlipidemia, unspecified; I35.0 Nonrheumatic aortic (valve) stenosis; R06.02 Shortness of breath; K21.9 Gastro-esophageal reflux disease without esophagitis
CPT/HCPCS: 93010; 99214

== ENCOUNTER → 2024-06-16 09:13 | Outpatient (BNVA) | payer MEDICARE, SELFPAY | PROVIDERS: PCP Internal Medicine; Visit Provider Nurse Practitioner Family | DX: I10 Essential (primary) hypertension (principal); E78.5 Hyperlipidemia, unspecified; I35.0 Nonrheumatic aortic (valve) stenosis; R06.00 Dyspnea, unspecified; K21.9 Gastro-esophageal reflux disease without esophagitis | CPT/HCPCS: 93005; 99212 ==

== ENCOUNTER 2024-07-09 02:02 | Inpatient (IN) | payer MEDICARE, SELFPAY ==
[2024-07-09] VITALS (18 sets, daily range): BP systolic 115–164; BP diastolic 44–100; PULSE 65–126; RESP 16–24; TEMP 36.2–37.1; O2SAT 85–100; BMI 27.8
--- NOTE | 2024-07-09 | ECG_ITS ---
Test Reason : N/V Blood Pressure : / mmHG Vent. Rate : 080 BPM Atrial Rate : 080 BPM P-R Int : 168 ms QRS Dur : 074 ms QT Int : 346 ms P-R-T Axes : -17 001 055 degrees QTc Int : 399 ms Normal sinus rhythm Nonspecific ST abnormality Abnormal ECG When compared with ECG of 13-AUG-2023 15:36, No significant change was found Referred By: Generic ED Physician Electronically Signed By:Harman Rico
--- NOTE | ~2024-07-09 | MR_ITS ---
EXAMINATION: MR ABDOMEN WITHOUT CONTRAST INCLUDING MRCP CLINICAL INFORMATION: Elevated alkaline phosphatase, abdominal pain COMPARISON: CT abdomen and pelvis 07/09/2024 TECHNIQUE: Noncontrast multiplanar multisequence MRI of the abdomen including MRCP sequences. FINDINGS: LIVER, GALLBLADDER, AND BILIARY TREE: Liver demonstrates normal size and surface contour. Limited evaluation of in and out of phase images secondary to motion artifacts. The gallbladder is surgically absent. There is a 1.5 cm well-circumscribed T2 hypointense filling defect in the distal CBD, likely compatible with CBD stone. There is significant upstream intra and extrahepatic biliary ductal dilation. The dilated common bile duct measures up to 1.7 cm and the dilated left intrahepatic bile duct for instance measures up to 0.8 cm. PANCREAS: Mild atrophy of the pancreas. No ductal dilation. SPLEEN: Normal size. No focal lesion. ADRENAL GLANDS: Normal; no mass. KIDNEYS: The kidneys are normal in size. Multiple bilateral simple renal cortical cysts, for which no dedicated follow-up imaging is required. GASTROINTESTINAL TRACT: Included bowel loops are nondilated. Extensive colonic diverticulosis. LYMPHOVASCULAR STRUCTURES : No lymphadenopathy. Mild dilation of the infrarenal abdominal aorta measuring up to 2.6 cm, however measures less than 1.5 times proximal normal segment. No routine follow-up as indicated. VISUALIZED LOWER CHEST: No pleural effusions. OSSEOUS: No acute or suspicious osseous abnormality. Degenerative changes of the visualized spine with mild levoconvex curvature of the lumbar spine. MR/MR MRCP IMPRESSION: 1. 1.5 cm distal CBD stone with upstream biliary ductal dilation. 2. Status post cholecystectomy. 3. Extensive colonic diverticulosis. Electronically signed by: Reg Humphrey MD 07/09/2024 02:19 PM EDT
--- NOTE | ~2024-07-09 | FL_ITS ---
EXAMINATION: FLUOROSCOPY GUIDANCE FOR NEEDLE PLACEMENT CLINICAL INFORMATION: ERCP COMPARISON: MRCP on 07/09/2024 TECHNIQUE: Fluoroscopy during ERCP FINDINGS: Common bile duct is dilated. Common bile duct stent was placed. FLUOROSCOPY TIME: 6.1 minutes DOSE AREA PRODUCT: 32 Gy-cm2 (hardwick-centimeter squared) FL/FL guidance in OR IMPRESSION: Fluoroscopy during ERCP. Please see operative report for additional information. Electronically signed by: Jennifer Felder MD 07/11/2024 11:57 AM EDT
--- NOTE | ~2024-07-09 | CT_ITS ---
EXAMINATION: CT ABDOMEN AND PELVIS WITHOUT CONTRAST CLINICAL INFORMATION: Pain. COMPARISON: None available. TECHNIQUE: Multidetector volumetric imaging was performed from the superior aspect of the liver through the pubic symphysis. Sagittal and coronal reformatted images were obtained on the technologist's workstation. This CT examination was performed using dose optimization techniques as appropriate, variously including the following: *Automated exposure control *Adjustment of mA and/or kV according to patient size (this includes techniques or standardized protocols for targeted exams where dose is matched to indication/reason for exam; i.e. extremities or head) *Use of iterative reconstruction technique DLP: 517 mGy-cm FINDINGS: LUNG BASES: The visualized lung bases are unremarkable. LIVER, GALLBLADDER, AND BILIARY TREE: The liver is normal in size, shape, and attenuation. No focal hepatic lesion or biliary ductal dilatation is present. There has been a prior cholecystectomy. The common bile duct measures up to 1.7 cm. There is a 1.5 cm mixed density structure within the distal common bile duct is not seen on prior exam. PANCREAS: Unremarkable. SPLEEN: Unremarkable. ADRENAL GLANDS: Unremarkable. KIDNEYS AND URETERS: The kidneys are normal in size, shape, and attenuation. Bilateral renal cysts are again seen. There is no hydronephrosis. BLADDER: Unremarkable. GASTROINTESTINAL TRACT: There are diverticula throughout without evidence for diverticulitis. The appendix is not identified. ABDOMINAL WALL: No significant hernia is appreciated. LYMPH NODES: Normal. VASCULAR: There is atherosclerotic plaque of the abdominal aorta with a infrarenal abdominal aortic bulge. PELVIC VISCERA: Unremarkable. OSSEOUS STRUCTURES: There is diffuse thoracolumbar degenerative change with grade 1 anterolisthesis L4 over L5 which was seen previously. CT/CT abdomen pelvis wo IV con IMPRESSION: 1. Intermediate density structure within the distal common bile duct with significant common bile duct dilatation. Correlation with biliary function enzymes needed. 2. Diverticulosis without evidence for diverticulitis. 3. Atherosclerotic plaque of the abdominal aorta with a infrarenal abdominal aortic bulge. 4. Bilateral renal cysts. 5. Degenerative change of the thoracolumbar spine with grade 1 anterolisthesis L4 over L5. 6. There has been a prior cholecystectomy. The common bile duct measures up to 1.7 cm. Fleischner guidelines were followed. Electronically signed by: Jay Cerna MD 07/09/2024 05:25 AM EDT RP
[2024-07-09 02:43] LABS: MANUAL DIFF FLAG NO
[2024-07-09 02:44] LABS: Eosinophils Percent Auto 0.4 % (0-4); Hematocrit 33.4 % (37.0-47.0); Hemoglobin 11.1 g/dl (12.0-16.0); Imm Gran Abs Auto 0.01 X10*3/uL (0.00-0.03); Imm Gran Pct Auto 0.2 % (0.0-0.4); Lymphocytes Absolute Auto 0.4 X10*3/uL (1.2-4.9); Mean Corpuscular HGB Conc 33.2 g/dl (31.0-35.0); Mean Corpuscular Hemoglobin 30.6 pg (27.0-33.0); Mean Platelet Volume 9.2 fL (9.4-12.3); Monocytes Absolute Auto 0.1 X10*3/uL (0.1-1.2); Monocytes Percent Auto 2.5 % (2-11); Neutrophils Absolute Auto 4.9 x10*3/uL (2.0-8.3); Neutrophils Percent Auto 88.9 % (45-73); Platelet Count 223 X10*3/uL (160-400); Red Blood Count 3.63 X10*6/uL (4.20-5.50); Red Cell Distribution Width 13.1 % (11.0-16.0); White Blood Count 5.5 X10*3/uL (4.8-10.8)
--- NOTE | 2024-07-09 03:01 | PC.NURSE ---
pt biba from home. pt a&ox4, vss, respirations even and unlabored. pt reports n/v x1 day. pt reports laying in bed has caused lower back pain. pt states she is able to eat and drink at this time without vomiting. 20g placed in right forearm, labs obtained. ems reports oxygen sat of 91% at home, pt placed on 2L nasal cannula and sat returned to 95%. pt sating 95% on room air at this time. room air is this pts baseline. pt denies pain/shortness of breath at this time.
[2024-07-09 03:04] LABS: Alanine Aminotransferase 230 U/L (0-31); Alkaline Phosphatase 685 U/L (39-117); Anion Gap 17 (12-20); Aspartate Amino Transferase 329 U/L (5-31); Bilirubin Total 0.9 mg/dL (0.0-1.0); Blood Urea Nitrogen 36 mg/dL (9-16); Calcium 9.6 mg/dL (8.4-10.2); Carbon Dioxide 20 mmol/L (22-29); Chloride 111 mmol/L (96-108); Creatinine Clr Calc Pharmacy 16.6; Estimated Glomerular Filt Rate 24; Glucose Random 129 mg/dL (60-115); Potassium 4.2 mmol/L (3.3-5.1); Sodium 144 mmol/L (135-145); Total Protein 7.1 g/dL (6.5-8.0)
[2024-07-09 03:05] LABS: Troponin-I High Sensitivity 8.4 ng/L (<3.5-17.0)
[2024-07-09 03:11] LABS: Lipase 1816 U/L (8-78)
[2024-07-09 03:20] LABS: Influenza A PCR NEGATIVE (Negative); Influenza B PCR NEGATIVE (Negative); Resp Syncy Virus RNA Qual PCR NEGATIVE (Negative); SARS COV2 PCR INHOUSE NEGATIVE (Negative)
--- NOTE | 2024-07-09 03:28 | ED.NAVMDI ---
HPI - Nausea/Vomiting/Diarrhea General Chief complaint: Nausea/Vomiting/Diarrhea Stated complaint: N/V x2 days Time Seen by Provider: 07/09/24 02:44 Source: patient Mode of arrival: EMS Limitations: no limitations History of Present Illness ED Provider: mandi THURMAN Narrative: Patient is status post cholecystectomy history of hypertension chronic GERD comes here for nausea vomiting for last 3 days unable to hold down much fluids no fever no chills no urinary complaints pain radiates mostly in upper abdomen vomited multiple times no diarrhea no fever no chills no history of similar vomitings in the past Related Data Home Medications ?Medication ?Instructions ?Recorded ?Confirmed ergocalciferol (vitamin D2) 1,250 1,250 mcg PO Q14D 09/30/20 06/16/24 mcg (50,000 unit) capsule hydralazine 25 mg tablet 25 mg PO BID 06/19/23 06/16/24 nifedipine 30 mg tablet,extended 30 mg PO DAILY 06/19/23 06/16/24 release 24 hr Previous Rx's ?Medication ?Instructions ?Recorded benzonatate 200 mg capsule 200 mg PO TID PRN cough #20 caps 10/07/22 comp.stocking,knee,long,medium #2 ea 03/08/23 clopidogrel 75 mg tablet 75 mg PO DAILY 7 days #90 tabs 11/30/23 chlorthalidone 25 mg tablet 25 mg PO DAILY #90 tabs 04/14/24 lorazepam 0.5 mg tablet 0.5 mg PO DAILY PRN Anxiety #60 06/09/24 tabs atorvastatin 40 mg tablet 40 mg PO QPM #90 tabs 06/14/24 carvedilol 3.125 mg tablet 3.125 mg PO BID 90 days #180 tabs 06/14/24 pantoprazole 40 mg tablet,delayed 40 mg PO DAILY@0630 #90 tabs 06/26/24 release Allergies Allergy/AdvReac Type Severity Reaction Status Date / Time No Known Drug Intolerances Allergy Unknown NOT Verified 07/09/24 02:16 APPLICABLE Review of Systems Review of Systems: Yes all other systems are reviewed and are negative [facility] Past Medical History Medical History Aortic stenosis COVID-19 Cerebral microvascular disease Cerebral infarction Anemia Bradycardia Hypertension Biliary colic Hypertension Hyperlipidemia Surgical History History of cholecystectomy S/P laparoscopic cholecystectomy Faizaertoriaz, bilateral Total knee replacement status Family History Family History Father Heart disease Mother No problems noted. Brother Heart disease Social History Social History Household Members: Spouse Housing: House Do you presently have visiting nurse or other home services: No Unable to assess alcohol history related to: Unknown Alcohol intake: current Alcohol intake frequency: holidays/special occasions only Alcohol type: hard liquor Comment: no fluids given po Patient Tobacco Use Status: Former Tobacco user Tobacco use type: Cigarette Years Smoked: 25 Smoked in Last 30 Days: No e-Cigarette/Vaping Use: Never Used Second Hand Smoke Exposure: No Use of substances other than those prescribed or required for medical reasons: No Advance Directives: No Advance Directives Information Provided: Yes Advance Directives Date on File: 02/17/21 Do you have a plan to hurt others: No Plan Nutrition Risks: No Nutritional Risk service: No Current occupational status: retired Cognitive needs: Yes (walker, wheel chair, cane) Hearing needs: No Vision needs: Yes (glasses) Physical Exam Vital Signs: Vital Signs: Last Vital Signs Temp 98.7 F 07/09/24 05:41 Pulse 80 07/09/24 06:51 Resp 22 H 07/09/24 06:51 BP 138/69 07/09/24 06:51 Pulse Ox 99 07/09/24 06:51 O2 Del Method Room Air 07/09/24 06:51 O2 Flow Rate 2 07/09/24 05:53 BMI result Body Mass Index 27.8 Appearance: Alert. Oriented X3. In moderate distress Eyes: No pallor or icterus ENT: Pharynx normal. Oral Mucosa moist Neck: Normal inspection. Neck supple. CVS: Normal heart rate and rhythm. Pulses normal. Respiratory: No respiratory distress. Equal air entry bilateral, no wheezing/rales/rhonchi Abdomen: Soft and tenderness in epigastric area Bowel sounds are present, no mass palpable, no CVA tenderness Skin: Skin warm and dry. Normal skin color. Normal skin turgor. Extremities: No lower extremity edema. No calf tenderness Neuro: Oriented X 3. Medications Administered Generic Name Dose Route Start Last Admin Trade Name Freq PRN Reason Stop Dose Admin Lactated Ringer's 1,000 mls @ 100 mls/hr 07/09/24 06:15 07/09/24 06:24 Lr IVCONT 100 mls/hr .Q10H MALOU Administration Ondansetron HCl 4 mg 07/09/24 05:55 07/09/24 06:17 Ondansetron Hcl 4 Mg/2 Ml Vial IVPUSH 4 mg Q8H PRN Administration Nausea and Vomiting Discontinued Medications Generic Name Dose Route Start Last Admin Trade Name Freq PRN Reason Stop Dose Admin Famotidine 20 mg 07/09/24 03:22 07/09/24 03:35 Famotidine/Pf 20 Mg/2 Ml Vial IVPUSH 07/09/24 03:23 20 mg ONCE ONE Administration Sodium Chloride 1,000 mls @ 999 mls/hr 07/09/24 03:22 07/09/24 04:50 Ns IV 07/09/24 04:22 Infused .Q1H1M ONE Infusion Morphine Sulfate 2 mg 07/09/24 03:22 07/09/24 03:35 Morphine Sulfate 2 Mg/Ml Cartridge IVPUSH 07/09/24 03:23 2 mg ONCE ONE Administration Protocol Morphine Sulfate 4 mg 07/09/24 05:27 07/09/24 05:39 Morphine Sulfate 4 Mg/Ml Cartridge IVPUSH 07/09/24 05:28 4 mg ONCE ONE Administration Protocol Ondansetron HCl 4 mg 07/09/24 03:22 07/09/24 03:35 Ondansetron Hcl 4 Mg/2 Ml Vial IVPUSH 07/09/24 03:23 4 mg ONCE ONE Administration Medical Decision Making Medical Decision Making [facility] Narrative: Patient with upper abdominal pain with acute pancreatitis with elevated liver enzymes and lipase CT scan of the abdomen showed mass in the distal CBD of 1.5 cm. Patient also has GERONIMO with creatinine of 2 will admit patient for further evaluation and pain management Differential Diagnosis Differential Diagnoses: The differential diagnosis associated with the presentation includes Acute pancreatitis/pancreatic mass Admission/Observation Consideration of admission/observation: Escalation of care including admission/observation considered Consult Healthcare Provider Management of the patient was discussed with: Hospitalist Lab Data [facility] Lab Attestation statement: I reviewed the patient's lab results. 07/09/24 02:30 07/09/24 02:36 Labs: Lab Results 07/09/24 07/09/24 07/09/24 Range/Units 02:30 02:36 04:19 WBC 5.5 (4.8-10.8) X10*3/uL RBC 3.63 L (4.20-5.50) X10*6/uL Hgb 11.1 L (12.0-16.0) g/dl Hct 33.4 L (37.0-47.0) % MCV 92.0 (80.0-98.0) fL MCH 30.6 (27.0-33.0) pg MCHC 33.2 (31.0-35.0) g/dl RDW 13.1 (11.0-16.0) % Plt Count 223 (160-400) X10*3/uL MPV 9.2 L (9.4-12.3) fL Immature Gran % (Auto) 0.2 (0.0-0.4) % Neut % (Auto) 88.9 H (45-73) % Lymph % (Auto) 8.0 L (20-40) % [place] % (Auto) 2.5 (2-11) % Eos % (Auto) 0.4 (0-4) % Baso % (Auto) 0.0 (0-2) % Lymph # (Auto) 0.4 L (1.2-4.9) X10*3/uL [place] # (Auto) 0.1 (0.1-1.2) X10*3/uL Eos # (Auto) 0.0 (0.0-0.4) X10*3/uL Baso # (Auto) 0.0 (0.0-0.2) X10*3/uL Abs Immat Gran (auto) 0.01 (0.00-0.03) X10*3/uL Absolute Neuts (auto) 4.9 (2.0-8.3) x10*3/uL Absolute Nucleated RBC 0.000 (0.0-0.012) X10*3/uL Nucleated RBC % (auto) 0.0 (0.0-0.2) /100WBC Sodium 144 (135-145) mmol/L Potassium 4.2 (3.3-5.1) mmol/L Chloride 111 H (96-108) mmol/L Carbon Dioxide 20 L (22-29) mmol/L Anion Gap 17 (12-20) BUN 36 H (9-16) mg/dL Creatinine 2.00 H (0.5-1.4) mg/dL Estim Creat Clear Calc 16.6 Estimated GFR 24 Random Glucose 129 H (60-115) mg/dL Calcium 9.6 (8.4-10.2) mg/dL Total Bilirubin 0.9 (0.0-1.0) mg/dL AST 329 H (5-31) U/L ALT 230 H (0-31) U/L Alkaline Phosphatase 685 H (39-117) U/L Troponin I High Sens 8.4 (<3.5-17.0) ng/L Total Protein 7.1 (6.5-8.0) g/dL Albumin 4.0 (3.5-5.0) g/dL Triglycerides 101 (<150) mg/dL Lipase 1816 H (8-78) U/L Influenza Type A (PCR) NEGATIVE (Negative) Influenza Type B (PCR) NEGATIVE (Negative) RSV RNA Qual (PCR) NEGATIVE (Negative) SARS-CoV-2 RNA (RT-PCR) NEGATIVE (Negative) Independent Interpretation I performed an independent interpretation of an: EKG and CT Scan Interpretation: Normal sinus rhythm heart rate 80 beats per minute normal interval normal axis no acute ST-T no acute ischemia Radiology Impression Discussion of test interpretation with radiology: I have reviewed the radiologist's reading. Discharge Plan Discharge Clinical Impression: Acute pancreatitis, Elevated liver function tests, Mass of common bile duct Patient Disposition: Admitted As Inpatient
[2024-07-09] MEDS: Morphine Sulfate 2 MG/ML CARTRIDGE IVPUSH (03:35)
[2024-07-09] MEDS: ondansetron HCL 4 MG/2 ML VIAL IVPUSH ×2 (03:35→06:17)
[2024-07-09] MEDS: Famotidine/PF 20 MG/2 ML VIAL IVPUSH (03:35)
[2024-07-09] MEDS: 0.9 % Sodium Chloride 1,000 ML 999 ML IV (03:36)
--- NOTE | 2024-07-09 03:40 | PC.NURSE ---
pt medicated per nov for 910 lower back pain and nausea.
[2024-07-09 04:55] LABS: Triglycerides 101 mg/dL (<150)
[2024-07-09] MEDS: Morphine Sulfate 4 MG/ML CARTRIDGE IVPUSH ×2 (05:39→23:38)
--- NOTE | 2024-07-09 05:41 | PC.NURSE ---
pt medicated per nov for [address] crenshaw aware of pt blood pressure.
--- NOTE | 2024-07-09 05:53 | PC.NURSE ---
pt trailed off of o2 at this time, pt desat to 85%, pt placed back on 2L nasal cannula sating 92-96%. aware.
--- NOTE | 2024-07-09 05:57 | PM.IMHP ---
History of Present Illness Date of Service: 07/09/24 Chief Complaint: Nausea and vomiting This is a 88-year-old female with pertinent history of CKD stage 3, hypertension, history of TIA, aortic stenosis, mixed hyperlipidemia, gastroesophageal reflux disease, status post cholecystectomy who presents to the emergency department for evaluation of nausea and vomiting. Patient states her symptoms started 3 days prior to presentation and have been progressive. Patient has been having multiple episodes of nausea and nonbloody emesis. Unable to tolerate p.o. intake. Also complaining of back pain. Denies abdominal discomfort. No fever, chills, chest pain, palpitations, shortness of breath, changes in urinary or bowel habits. In the emergency department, creatinine found to be elevated at 2, serum lipase elevated. Imaging with CBD elevation and density in the distal CBD Review of Systems Constitutional: Constitutional: Reports fatigue Cardiovascular: Cardiovascular: Reports no additional cardiovascular complaints Respiratory: Respiratory: Reports no additional respiratory complaints Gastrointestinal: Gastrointestinal: Reports nausea and Reports vomiting Genitourinary: Genitourinary: Reports no additional female genitourinary complaints Endocrine: Endocrine: Reports fatigue [facility] Medical History Aortic stenosis COVID-19 Cerebral microvascular disease Cerebral infarction Anemia Bradycardia Hypertension Biliary colic Hypertension Hyperlipidemia Family History Father Heart disease Mother No problems noted. Brother Heart disease Surgical History History of cholecystectomy S/P laparoscopic cholecystectomy Hammertoe, bilateral Total knee replacement status Social History Household Members: Spouse Housing: House Do you presently have visiting nurse or other home services: No Unable to assess alcohol history related to: Unknown Alcohol intake: current Alcohol intake frequency: holidays/special occasions only Alcohol type: hard liquor Comment: no fluids given po Patient Tobacco Use Status: Former Tobacco user Tobacco use type: Cigarette Years Smoked: 25 Smoked in Last 30 Days: No e-Cigarette/Vaping Use: Never Used Second Hand Smoke Exposure: No Use of substances other than those prescribed or required for medical reasons: No Advance Directives: No Advance Directives Information Provided: Yes Advance Directives Date on File: 02/17/21 Do you have a plan to hurt others: No Plan service: No Current occupational status: retired Cognitive needs: Yes (walker, wheel chair, cane) Hearing needs: No Vision needs: Yes (glasses) Meds Allergies Allergy/AdvReac Type Severity Reaction Status Date / Time No Known Drug Intolerances Allergy Unknown NOT Verified 07/09/24 02:16 APPLICABLE Home Medications ?Medication ?Instructions ?Recorded ?Confirmed ?Last Taken ?Type ergocalciferol (vitamin D2) 1,250 1,250 mcg PO Q14D 09/30/20 06/16/24 09/13/22 History mcg (50,000 unit) capsule hydralazine 25 mg tablet 25 mg PO BID 06/19/23 06/16/24 Unknown History nifedipine 30 mg tablet,extended 30 mg PO DAILY 06/19/23 06/16/24 Unknown History release 24 hr Physical Exam Vital Signs and Narrative: Vital Signs: Last Vital Signs Temp 98.7 F 07/09/24 05:41 Pulse 86 07/09/24 05:41 Resp 20 07/09/24 05:41 BP 161/75 H 07/09/24 05:41 Pulse Ox 96 07/09/24 05:53 O2 Del Method Nasal Cannula 07/09/24 05:53 O2 Flow Rate 2 07/09/24 05:53 BMI result Body Mass Index 27.8 Elderly female lying in bed in no distress Neck supple, no JVD Regular rate and rhythm, S1-S2 heard Regular breath sounds bilaterally, no wheezing or crackles appreciated Abdomen soft nontender, no guarding, no rigidity Patient is awake, alert and oriented to self, place, time and person ; no focal motor deficit Psych: Normal mood No pedal edema Results Labs 07/09/24 02:30 07/09/24 02:36 Labs: Laboratory Results - last 24 hr 07/09/24 07/09/24 07/09/24 02:30 02:36 04:19 MCV 92.0 MCH 30.6 MCHC 33.2 RDW 13.1 Plt Count 223 MPV 9.2 L Immature Gran % (Auto) 0.2 Neut % (Auto) 88.9 H Lymph % (Auto) 8.0 L [place] % (Auto) 2.5 Eos % (Auto) 0.4 Baso % (Auto) 0.0 Lymph # (Auto) 0.4 L [place] # (Auto) 0.1 Eos # (Auto) 0.0 Baso # (Auto) 0.0 Abs Immat Gran (auto) 0.01 Absolute Neuts (auto) 4.9 Absolute Nucleated RBC 0.000 Nucleated RBC % (auto) 0.0 Anion Gap 17 Estim Creat Clear Calc 16.6 Estimated GFR 24 Random Glucose 129 H Calcium 9.6 Total Bilirubin 0.9 AST 329 H ALT 230 H Alkaline Phosphatase 685 H Troponin I High Sens 8.4 Total Protein 7.1 Albumin 4.0 Triglycerides 101 Lipase 1816 H Influenza Type A (PCR) NEGATIVE Influenza Type B (PCR) NEGATIVE RSV RNA Qual (PCR) NEGATIVE SARS-CoV-2 RNA (RT-PCR) NEGATIVE Imaging Radiologist's Impressions: Impressions Abdomen/Pelvis CT 07/09/24 03:23 IMPRESSION: 1. Intermediate density structure within the distal common bile duct with significant common bile duct dilatation. Correlation with biliary function enzymes needed. 2. Diverticulosis without evidence for diverticulitis. 3. Atherosclerotic plaque of the abdominal aorta with a infrarenal abdominal aortic bulge. 4. Bilateral renal cysts. 5. Degenerative change of the thoracolumbar spine with grade 1 anterolisthesis L4 over L5. 6. There has been a prior cholecystectomy. The common bile duct measures up to 1.7 cm. Fleischner guidelines were followed. Electronically signed by: Jay Cerna MD 07/09/2024 05:25 AM EDT RP Assessment and Plan (1) Elevated liver function tests: Status: Acute (2) Intractable nausea and vomiting: Status: Acute Plan This is a 88-year-old female with pertinent history of CKD stage 3, hypertension, history of TIA, aortic stenosis, mixed hyperlipidemia, gastroesophageal reflux disease, status post cholecystectomy who presents to the emergency department for evaluation of nausea and vomiting. #. Intractable nausea and vomiting #. Elevated transaminases and alk-phos -Imaging with density within the distal CBD and CBD dilatation, ?mass. Obtaining MRCP. -Gastroenterology consult -elevated lipase in the setting of possible mass. Imaging without inflammation of the pancreas and patient without typical pain of pancreatitis #. Acute kidney injury, prerenal -monitor creatinine urine output with crystalloid resuscitation #. Hypertension: Resume p.o. antihypertensives once able to take p.o. #. Mixed hyperlipidemia: Hold statin Med rec pending DNR/DNI. Discussed with patient at bedside DVT prophylaxis: Mechanical. Hold Lovenox until specialist evaluation Admit as inpatient and will require two night minimum hospital stay for close monitoring of kidney function, evaluation of elevated liver enzymes (as above), which is not possible in a lesser acute setting. Specialist consult pending Quality Stroke Does the patient have a stroke diagnosis?: No VTE Prior VTE?: No VTE Risk Level:: Medical - moderate - high VTE Device Contraindication: N/A - Device Ordered VTE Drug Contraindication: Treatment Not Indicated
[2024-07-09] MEDS: Lactated Ringers 1,000 ML 100 ML IVCONT (06:24)
--- NOTE | 2024-07-09 08:19 | P.CNGI_ITS ---
History of Present Illness Data of Consult Service Date: 07/09/24 Requesting physician: Moy Story Primary Care Provider: Unknown Physician HPI Reason for consult: Elevated LFTs, dilated CBD 88 YF WITH hypertension, chronic GERD AND status post cholecystectomy seen at [facility] on 07/09/24 with nausea vomiting for last 3 days and unable to hold down much fluids Pt denied fever no chills, urinary complaints Complained of pain radiates mostly in upper abdomen and vomited multiple times Pt denied diarrhea no fever no chills no history of similar symptoms in the past. States abdominal pain has improved. 07/09/[address] SCAN SHOWED: 1. Intermediate density structure within the distal common bile duct with significant common bile duct dilatation. Correlation with biliary function enzymes needed. 2. Diverticulosis without evidence for diverticulitis. 3. Atherosclerotic plaque of the abdominal aorta with a infrarenal abdominal aortic bulge. 4. Bilateral renal cysts. 5. Degenerative change of the thoracolumbar spine with grade 1 anterolisthesis L4 over L5. 6. There has been a prior cholecystectomy. The common bile duct measures up to 1.7 cm. 12/2021 ERCP WAS PERFORMED [address] DR SARGENT: DESCRIPTION OF PROCEDURE: After informed consent and appropriate sedation, the duodenoscope was inserted into the oropharynx, down the esophagus, and into the stomach. The scope was then advanced through the pylorus to the ampulla. The ampulla had a bulbous appearance. A tome was advanced and passed easily into the CBD as confirmed by cholangiogram. No obvious filling defect was seen. A sphincterotomy was performed to 12 mm and a 12 mm extraction balloon was sweeped down the CBD multiple times. At least 4 dark green round and oblong shaped stones with some sludge and debris and purulent bile came out. A basket was then used but no further material was noted. an occlusion cholangiogram did not reveal any obvious dfects either. The gallbladder did not fill, and the CBD was dilated to at least 13 mm. The CBD seemed to drain freely. There was some minor oozing which had ceased by the end of the procedure. The stomach was then decompressed and the endoscope was withdrawn. FINDINGS: 1. Choledocholithiasis 2. Probable cholecystitis, absent filling of gallbladder RECOMMENDATIONS: 1. NPO except ice chips for next 4-6 hrs then clears as tolerated, can advance diet tomorrow if feels well 2. follow up with surgery [facility] Past Medical History Medical History (Updated 08/07/24 @ 09:44 by Merced Mittal RN) Cataract of left eye FHx: total knee replacement COVID-19 Cerebral microvascular disease Cerebral infarction Anemia Bradycardia Hypertension Aortic stenosis Biliary colic Hyperlipidemia Family History Family History Father Heart disease Mother No problems noted. Brother Heart disease Surgical History Surgical History (Updated 08/07/24 @ 10:16 by Merced Mittal RN) History of ERCP History of cholecystectomy S/P laparoscopic cholecystectomy Hammertoe, bilateral Total knee replacement status Social History Social History Household Members: None Housing: House Are you a primary tree care foreman to a significant other at home: No Do you presently have visiting nurse or other home services: Yes Unable to assess alcohol history related to: Unknown Alcohol intake: current Alcohol intake frequency: holidays/special occasions only Alcohol type: hard liquor Comment: no fluids given po Patient Tobacco Use Status: Former Tobacco user Tobacco use type: Cigarette Years Smoked: 25 e-Cigarette/Vaping Use: Never Used Second Hand Smoke Exposure: No Use of substances other than those prescribed or required for medical reasons: No Have you been hit, kicked, punched, or otherwise hurt by someone within the past year? If so, by whom?: No Spiritual Healthcare Practices: none [employer] Healthcare Practices: Jehovah Witness Cultural Healthcare Practices: none Advance Directives: Yes (daughter is HCP) Advance Directives Information Provided: Yes Advance Directives on File: Yes Advance Directives Date on File: 04/03/16 Recently lost weight without trying: No Eating poorly because of decreased appetite: No Nutrition Risks: Surgical patient >75years FDLMP: n/a service: No Current occupational status: retired Cognitive needs: Yes (walker, wheel chair, cane) Hearing needs: No Vision needs: Yes (glasses) Meds Allergies Allergy/AdvReac Type Severity Reaction Status Date / Time No Known Allergies Allergy Verified 08/07/24 09:43 Active Medications: Current Medications Acetaminophen (Acetaminophen 325 Mg Tablet) 650 mg PO Q6H PRN PRN Reason: Pain, Mild (Pain Scale 1-3), fever or headache Calcium Carbonate (Calcium Carbonate 750 Mg Tab.Chew) 750 mg PO Q4H PRN PRN Reason: Heartburn Lactated Ringer's (Lr) 1,000 mls @ 100 mls/hr IVCONT .Q10H [facility] Last Admin: 07/09/24 06:24 Dose: 100 mls/hr Magnesium Hydroxide (Milk Of Magnesia 30 Ml Oral.Susp) 30 ml PO DAILY PRN PRN Reason: Constipation Melatonin (Melatonin 3 Mg Tablet) 6 mg PO BEDTIME PRN PRN Reason: Insomnia Morphine Sulfate (Morphine Sulfate 4 Mg/Ml Cartridge) 4 mg IVPUSH Q4H PRN; Protocol PRN Reason: Pain, Severe (Pain Scale 7-10) Ondansetron HCl (Ondansetron Hcl 4 Mg/2 Ml Vial) 4 mg IVPUSH Q8H PRN PRN Reason: Nausea and Vomiting Last Admin: 07/09/24 06:17 Dose: 4 mg Sodium Chloride (0.9 % Sodium Chloride Flush 3 Ml Syringe) [facility] Home Medications ?Medication ?Instructions ?Recorded ?Confirmed ?Last Taken ?Type ergocalciferol (vitamin D2) 1,250 1,250 mcg PO Q14D 09/30/20 08/07/24 06/29/24 History mcg (50,000 unit) capsule hydralazine 25 mg tablet 25 mg PO BID 06/19/23 08/07/24 07/08/24 History nifedipine 30 mg tablet,extended 30 mg PO DAILY 06/19/23 08/07/24 07/08/24 History release 24 hr acetaminophen 325 mg tablet 650 mg PO Q6H PRN Pain 07/09/24 08/07/24 Unknown History (Tylenol) atorvastatin 40 mg tablet 40 mg PO BEDTIME 07/09/24 08/07/24 07/08/24 History psyllium 1 packet PO BEDTIME 07/09/24 08/07/24 07/08/24 History vit C 250 mg-vit E 90 mg-zinc 40 1 tab PO BID 07/09/24 08/07/24 07/08/24 History mg-copper 1 [id number] capsule (PreserVision AREDS-2) Physical Exam 2 Vital Signs: Vital Signs: Last Vital Signs Temp 98.7 F 07/09/24 05:41 Pulse 80 07/09/24 06:51 Resp 22 H 07/09/24 06:51 BP 138/69 07/09/24 06:51 Pulse Ox 99 07/09/24 06:51 O2 Del Method Room Air 07/09/24 06:51 O2 Flow Rate 2 07/09/24 05:53 BMI result Body Mass Index 27.8 Const: Other: General in no acute distress. Anicteric sclera Neck no JVD. CVS regular rate rhythm, Respiratory lungs clear to auscultation, no respiratory distress, no wheeze, no rhonchi. Gastrointestinal abdomen soft, non tender, bowel sounds audible, no guarding , no rigidity. Extremities no edema. Neuro non focal Skin no rash Appropriate affect Results Labs 07/12/24 06:37 07/11/24 05:58 Labs: Short CBC 07/09/24 Range/Units 02:30 WBC 5.5 (4.8-10.8) X10*3/uL Hgb 11.1 L (12.0-16.0) g/dl Hct 33.4 L (37.0-47.0) % Plt Count 223 (160-400) X10*3/uL BMP 07/09/24 02:36 Sodium 144 Potassium 4.2 Chloride 111 H Carbon Dioxide 20 L BUN 36 H Creatinine 2.00 H Calcium 9.6 Liver Function 07/09/24 Range/Units 02:36 Total Bilirubin 0.9 (0.0-1.0) mg/dL AST 329 H (5-31) U/L ALT 230 H (0-31) U/L Alkaline Phosphatase 685 H (39-117) U/L Albumin 4.0 (3.5-5.0) g/dL Assessment and Plan (1) Elevated liver function tests: Status: Acute Plan 88 YF WITH hypertension, chronic GERD AND status post cholecystectomy seen at [facility] on 07/09/24 with nausea vomiting for last 3 days and unable to hold down much fluids Pt denied fever no chills, urinary complaints Complained of pain radiates mostly in upper abdomen and vomited multiple times Pt denied diarrhea no fever no chills no history of similar symptoms in the past. States abdominal pain has improved. 07/09/[address] SCAN SHOWED: 1. Intermediate density structure within the distal common bile duct with significant common bile duct dilatation. Correlation with biliary function enzymes needed. 2. Diverticulosis without evidence for diverticulitis. 3. Atherosclerotic plaque of the abdominal aorta with a infrarenal abdominal aortic bulge. 4. Bilateral renal cysts. 5. Degenerative change of the thoracolumbar spine with grade 1 anterolisthesis L4 over L5. 6. There has been a prior cholecystectomy. The common bile duct measures up to 1.7 cm. PLAN: Pt is scheduled for an ERCP today with Dr Sargent. Procedure reviewed with the patient Procedures Date of Service Date of Service: 08/07/24
--- NOTE | 2024-07-09 09:54 | P.EN_ITS ---
Event Note Date of Service: 07/09/24 Event Note: 88-year-old female with past medical history significant for CKD stage 3, hypertension, history of TIA, aortic stenosis, mixed hyperlipidemia, gastroesophageal reflux disease, status post cholecystectomy presented to emergency room with nausea, nonbloody emesis, unable to tolerate by mouth associated with back pain with no associated fever chills, CT abdomen showed intermediate density structure within the distal common bile duct with significant common bile duct dilatation, diverticulosis without evidence of diverticulitis and degenerative changes L-spine, elevated creatinine , stable hematocrit normal WBC and electrolytes and elevated lipase of 1816, elevated AST ALT and alk-phos of 685, normal total bili General resting comfortably, in no acute distress. Neck no JVD. CVS regular rate rhythm, Respiratory lungs clear to auscultation, no respiratory distress, no wheeze, no rhonchi. Gastrointestinal abdomen soft, non tender, bowel sounds audible, no guarding , no rigidity. Extremities no edema. Neuro non focal Skin no rash Appropriate affect Assessment/plan 88-year-old female with pertinent history of CKD stage 3, hypertension, history of TIA, aortic stenosis, mixed hyperlipidemia, gastroesophageal reflux disease, status post cholecystectomy who presents to the emergency department for evaluation of nausea and vomiting diagnosed to have elevated liver enzymes/alk- phos and CT imaging showed density within this distal CBD with CBD dilatation.. #. Intractable nausea and vomiting Elevated transaminases and alk-phos,Imaging with density within the distal CBD and CBD dilatation GI consult follow-up on MRCP and likely ERCP Continue NPO/IV fluids elevated lipase in the setting of possible mass, follow labs and clinical course, CT imaging showed no inflammation of pancreas. #. Acute kidney injury, prerenal noted to have worsening creatinine continue IV fluids avoid nephrotoxins and hypotension. #. Hypertension: Follow blood pressure resume medications as indicated, on nifedipine 30 mg, Coreg, chlorthalidone and hydralazine. #. Mixed hyperlipidemia: Hold Lipitor due to elevated LFTs DNR/DNI. DVT prophylaxis: Mechanical Patient will require continued inpatient hospitalization for monitoring of renal function and further workup for elevated liver enzymes/CBD dilatation and expert consultation. Time Spent With Patient Time: Total time managing care of this patient today ____ minutes.
[2024-07-09] MEDS: Lactated Ringers 1,000 ML 125 ML IVCONT ×3 (10:23→21:00)
--- NOTE | 2024-07-09 11:58 | PHA.MEDREC ---
Addendum entered by Shirley Durham RPh 07/09/24 12:01: pt also stated she takes tylenol, metamucil HS and preservision 1 BID at home OTC. Original Note: Pharmacy Consult ? Medication Reconciliation Pharmacy has completed the medication reconciliation, spoke to the patient at bedside who confirmed all medications. Stated she was unsure if she takes clopidogrel but has recent claim history for it being filled along with the rest of her medications.
--- NOTE | 2024-07-09 13:26 | P.CONNP_ITS ---
History of Present Illness Reason for Consult Consult date: 07/09/24 Chief Complaint Chief complaint: Nausea/vomiting History of Present Illness Narrative: RTANE consulte for GERONIMO on CKD PT is a poor historuian and info obtained from EHR.. 88 Y F WITH hypertension, chronic GERD, CKD 3 ( Scr 1.1-1.3 BSL) adm with abd pain and acute pancreatitisi and GERONIMO Scr 2.0 07/09/[address] SCAN SHOWED: 1. Intermediate density structure within the distal common bile duct with significant common bile duct dilatation. Correlation with biliary function enzymes needed. 2. Diverticulosis without evidence for diverticulitis. 3. Atherosclerotic plaque of the abdominal aorta with a infrarenal abdominal aortic bulge. 4. Bilateral renal cysts. 5. Degenerative change of the thoracolumbar spine with grade 1 anterolisthesis L4 over L5. 6. There has been a prior cholecystectomy. The common bile duct measures up to 1.7 cm. Review of Systems Review of Systems Yes all other systems are reviewed and are negative Constitutional: Reports fatigue Cardiovascular: Reports no additional cardiovascular complaints Respiratory: Reports no additional respiratory complaints Gastrointestinal: Reports nausea and Reports vomiting Endocrine: Reports fatigue PMFSH Past Medical History Medical History (Updated 07/09/24 @ 10:54 by Dariana Almonte RN) Cataract of left eye FHx: total knee replacement COVID-19 Cerebral microvascular disease Cerebral infarction Anemia Bradycardia Hypertension Aortic stenosis Biliary colic Hypertension Hyperlipidemia Family History Family History Father Heart disease Mother No problems noted. Brother Heart disease Surgical History Surgical History History of cholecystectomy S/P laparoscopic cholecystectomy Hammertoe, bilateral Total knee replacement status Social History Social History Household Members: None Housing: House Do you presently have visiting nurse or other home services: Yes Unable to assess alcohol history related to: Unknown Alcohol intake: current Alcohol intake frequency: holidays/special occasions only Alcohol type: hard liquor Comment: no fluids given po Patient Tobacco Use Status: Former Tobacco user Tobacco use type: Cigarette Years Smoked: 25 e-Cigarette/Vaping Use: Never Used Second Hand Smoke Exposure: No Advance Directives Date on File: 02/17/21 service: No Current occupational status: retired Cognitive needs: Yes (walker, wheel chair, cane) Hearing needs: No Vision needs: Yes (glasses) Meds Allergies Allergy/AdvReac Type Severity Reaction Status Date / Time No Known Drug Intolerances Allergy Unknown NOT Verified 07/09/24 02:16 APPLICABLE Active Medications: Current Medications Acetaminophen (Acetaminophen 325 Mg Tablet) 650 mg PO Q6H PRN PRN Reason: Pain, Mild (Pain Scale 1-3), fever or headache Calcium Carbonate (Calcium Carbonate 750 Mg Tab.Chew) 750 mg PO Q4H PRN PRN Reason: Heartburn Lactated Ringer's (Lr) 1,000 mls @ 125 mls/hr IVCONT .Q8H [facility] Last Admin: 07/09/24 10:23 Dose: 125 mls/hr Magnesium Hydroxide (Milk Of Magnesia 30 Ml Oral.Susp) 30 ml PO DAILY PRN PRN Reason: Constipation Melatonin (Melatonin 3 Mg Tablet) 6 mg PO BEDTIME PRN PRN Reason: Insomnia Morphine Sulfate (Morphine Sulfate 4 Mg/Ml Cartridge) 4 mg IVPUSH Q4H PRN; Protocol PRN Reason: Pain, Severe (Pain Scale 7-10) Ondansetron HCl (Ondansetron Hcl 4 Mg/2 Ml Vial) 4 mg IVPUSH Q8H PRN PRN Reason: Nausea and Vomiting Last Admin: 07/09/24 06:17 Dose: 4 mg Sodium Chloride (0.9 % Sodium Chloride Flush 3 Ml Syringe) [facility] Last Admin: 07/09/24 08:23 Dose: Not Given Home Medications ?Medication ?Instructions ?Recorded ?Confirmed ?Last Taken ?Type ergocalciferol (vitamin D2) 1,250 1,250 mcg PO Q14D 09/30/20 07/09/24 06/29/24 History mcg (50,000 unit) capsule hydralazine 25 mg tablet 25 mg PO BID 06/19/23 07/09/24 07/08/24 History nifedipine 30 mg tablet,extended 30 mg PO DAILY 06/19/23 07/09/24 07/08/24 History release 24 hr acetaminophen 325 mg tablet 650 mg PO Q6H PRN Pain 07/09/24 07/09/24 Unknown History (Tylenol) atorvastatin 40 mg tablet 40 mg PO BEDTIME 07/09/24 07/09/24 07/08/24 History psyllium 1 packet PO BEDTIME 07/09/24 07/09/24 07/08/24 History vit C 250 mg-vit E 90 mg-zinc 40 1 tab PO BID 07/09/24 07/09/24 07/08/24 History mg-copper 1 [id number] capsule (PreserVision AREDS-2) Physical Exam Vital Signs: Last Vital Signs Temp 98.0 F 07/09/24 09:30 Pulse 74 07/09/24 09:30 Resp 18 07/09/24 09:30 BP 129/61 07/09/24 09:30 Pulse Ox 99 07/09/24 09:30 O2 Del Method Nasal Cannula 07/09/24 09:30 O2 Flow Rate 3 07/09/24 09:30 BMI result Body Mass Index 27.8 Results Lab Results 07/09/24 02:30 07/09/24 02:36 Lab results: Chemistry 07/09/24 02:36 Sodium 144 Potassium 4.2 Carbon Dioxide 20 L BUN 36 H Creatinine 2.00 H Calcium 9.6 Hematology 07/09/24 02:30 WBC 5.5 Hgb 11.1 L Plt Count 223 Assessment and Plan (1) Elevated liver function tests: Status: Acute Plan 1. Non-Oliguric GERONIMO in setting of acute pancreatitis c/w renal hypoerfusion and rsik f ischemic cytokine assoc ATN 2. CKD 3 3. Acute pancreatitis REC: cont iVF; track UOP/renal func; avopid NToxons; check urine studies and FENa Will follow w team Procedures Date of Service Date of Service: 07/09/24
--- NOTE | 2024-07-09 14:28 | MHC.CM.PN ---
IMM 07/09/24, EMR REVIEWED, CM MET W/PT WHO IS A&O, PT REPORTS SHE LIVES ALONE AND HER DTR LIVES DOWN THE STREET, PT HAS A CANE SHE USES WHEN SHE LEAVES HOUSE AND ALSO HAS A FWW/ROLLATER/TRANSPORT CHAIR IF NEEDED, PT HAS A OPERATIONS VICE PRESIDENT THAT VISITS [employer] AND DOES ALL CLEANING AND LAUNDRY AND PT'S DTR DOES MOST OF SHOPPING, PT ALSO HAS A NURSE CM FROM [facility] WHO VISITS PT Q3 TO 4 MOS AND PT REPORTS SHE CAN CALL HER IF NEEDED, PT IS OPEN TO VNA SERVICES IF NEEDED, PT'S GOAL IS HOME WHEN MEDICALLY CLEARED. PT VERIFIES PCP IS CARMEL CLAIRE AND DTR KARISSA H [phone] IS HER HCP.
--- NOTE | 2024-07-09 14:35 | MHC.SHP ---
Pre-Procedural Eval Section A - 24 Hr Update-Section A only Date of Service: 07/09/24 The patient is an INPATIENT: Yes The patient has been examined within 24 hours of the surgical procedure. The History & Physical has been completed within 30 days and I have reviewed it.: Yes Section B - Complete if H&P > 30 days Chief Complaint: Nausea/vomiting Allergies: Allergies Allergy/AdvReac Type Severity Reaction Status Date / Time No Known Drug Intolerances Allergy Unknown NOT Verified 07/09/24 02:16 APPLICABLE Plan Diagnosis/Plan: Unchanged I have reviewed the history and physical and performed a pertinent physical examination on my patient. No changes have occurred unless specified. ERCP for possible CBD obstruction Time Spent With Patient Time: Total time managing care of this patient today ____ minutes.
--- NOTE | 2024-07-09 15:02 | P.CONAN_ITS ---
[facility] Active Problems Active Problems: All Active Problems Mass of common bile duct (Acute) Intractable nausea and vomiting (Acute) Elevated liver function tests (Acute) Acute pancreatitis (Acute) Shortness of breath (Acute) Physical exam (Acute) Grief (Acute) Anxiety (Acute) Chest tightness (Acute) Preop exam for internal medicine (Acute) Leg edema (Acute) Chronic GERD (Acute) Aortic stenosis (Acute) Hypertension (Acute) Hyperlipidemia (Acute) COVID-19 (Acute) Past Medical History Medical History Cataract of left eye FHx: total knee replacement COVID-19 Cerebral microvascular disease Cerebral infarction Anemia Bradycardia Hypertension Aortic stenosis Biliary colic Hypertension Hyperlipidemia Functional capacity: independent ambulation Patient : No Family History Family History Father Heart disease Mother No problems noted. Brother Heart disease Family history of problems with anesthesia: No Surgical History Surgical History History of cholecystectomy S/P laparoscopic cholecystectomy Hammertoe, bilateral Total knee replacement status History of Problems with Anesthesia: No Social History Social History Household Members: None Housing: House Do you presently have visiting nurse or other home services: Yes Unable to assess alcohol history related to: Unknown Alcohol intake: current Alcohol intake frequency: holidays/special occasions only Alcohol type: hard liquor Comment: no fluids given po Patient Tobacco Use Status: Former Tobacco user Tobacco use type: Cigarette Years Smoked: 25 e-Cigarette/Vaping Use: Never Used Second Hand Smoke Exposure: No Advance Directives Date on File: 02/17/21 service: No Current occupational status: retired Cognitive needs: Yes (walker, wheel chair, cane) Hearing needs: No Vision needs: Yes (glasses) Meds Allergies Allergy/AdvReac Type Severity Reaction Status Date / Time No Known Drug Intolerances Allergy Unknown NOT Verified 07/09/24 02:16 APPLICABLE Active Medications: Current Medications Acetaminophen (Acetaminophen 325 Mg Tablet) 650 mg PO Q6H PRN PRN Reason: Pain, Mild (Pain Scale 1-3), fever or headache Calcium Carbonate (Calcium Carbonate 750 Mg Tab.Chew) 750 mg PO Q4H PRN PRN Reason: Heartburn Lactated Ringer's (Lr) 1,000 mls @ 125 mls/hr IVCONT .Q8H [facility] Last Admin: 07/09/24 10:23 Dose: 125 mls/hr Magnesium Hydroxide (Milk Of Magnesia 30 Ml Oral.Susp) 30 ml PO DAILY PRN PRN Reason: Constipation Melatonin (Melatonin 3 Mg Tablet) 6 mg PO BEDTIME PRN PRN Reason: Insomnia Morphine Sulfate (Morphine Sulfate 4 Mg/Ml Cartridge) 4 mg IVPUSH Q4H PRN; Protocol PRN Reason: Pain, Severe (Pain Scale 7-10) Ondansetron HCl (Ondansetron Hcl 4 Mg/2 Ml Vial) 4 mg IVPUSH Q8H PRN PRN Reason: Nausea and Vomiting Last Admin: 07/09/24 06:17 Dose: 4 mg Sodium Chloride (0.9 % Sodium Chloride Flush 3 Ml Syringe) 3 ml IVFLUSH QSHIFT [facility] Last Admin: 07/09/24 08:23 Dose: Not Given Home Medications ?Medication ?Instructions ?Recorded ?Confirmed ?Last Taken ?Type ergocalciferol (vitamin D2) 1,250 1,250 mcg PO Q14D 09/30/20 07/09/24 06/29/24 History mcg (50,000 unit) capsule hydralazine 25 mg tablet 25 mg PO BID 06/19/23 07/09/24 07/08/24 History nifedipine 30 mg tablet,extended 30 mg PO DAILY 06/19/23 07/09/24 07/08/24 History release 24 hr acetaminophen 325 mg tablet 650 mg PO Q6H PRN Pain 07/09/24 07/09/24 Unknown History (Tylenol) atorvastatin 40 mg tablet 40 mg PO BEDTIME 07/09/24 07/09/24 07/08/24 History psyllium 1 packet PO BEDTIME 07/09/24 07/09/24 07/08/24 History vit C 250 mg-vit E 90 mg-zinc 40 1 tab PO BID 07/09/24 07/09/24 07/08/24 History mg-copper 1 [id number] capsule (PreserVision AREDS-2) Exam Height,Weight and Vital Signs: Height 5 ft Weight 64.6 kg Last Vital Signs Temp 98.0 F 07/09/24 09:30 Pulse 74 07/09/24 09:30 Resp 18 07/09/24 09:30 BP 129/61 07/09/24 09:30 Pulse Ox 99 07/09/24 09:30 O2 Del Method Nasal Cannula 07/09/24 09:30 O2 Flow Rate 3 07/09/24 09:30 Pertinent Lab Results Pertinent Lab Results: Laboratory Tests 07/09/24 07/09/24 07/09/24 02:30 02:36 04:19 WBC 5.5 RBC 3.63 L Hgb 11.1 L Hct 33.4 L MCV 92.0 MCH 30.6 MCHC 33.2 RDW 13.1 Plt Count 223 MPV 9.2 L Immature Gran % (Auto) 0.2 Neut % (Auto) 88.9 H Lymph % (Auto) 8.0 L Morrow % (Auto) 2.5 Eos % (Auto) 0.4 Baso % (Auto) 0.0 Lymph # (Auto) 0.4 L [place] # (Auto) 0.1 Eos # (Auto) 0.0 Baso # (Auto) 0.0 Abs Immat Gran (auto) 0.01 Absolute Neuts (auto) 4.9 Absolute Nucleated RBC 0.000 Nucleated RBC % (auto) 0.0 Sodium 144 Potassium 4.2 Chloride 111 H Carbon Dioxide 20 L Anion Gap 17 BUN 36 H Creatinine 2.00 H Estim Creat Clear Calc 16.6 Estimated GFR 24 Random Glucose 129 H Calcium 9.6 Total Bilirubin 0.9 AST 329 H ALT 230 H Alkaline Phosphatase 685 H Troponin I High Sens 8.4 Total Protein 7.1 Albumin 4.0 Triglycerides 101 Lipase 1816 H Influenza Type A (PCR) NEGATIVE Influenza Type B (PCR) NEGATIVE RSV RNA Qual (PCR) NEGATIVE SARS-CoV-2 RNA (RT-PCR) NEGATIVE Airway Mallampati Class: III TM Dist: >3cm Neck ROM: Full Heart: RRR Lungs: CTA Assessment and Plan Assessment Anesthesia Assessment: Anesthesia Plan Discussed and Chart Reviewed Final Anesthetic Review Family History of Problems with Anesthesia: No History of Problems with Anesthesia: No NPO: Yes ASA Class: III and Emergency Final Preanesthetic Review: Meds/Allgs Chart Reviewed, Consent Obtained/Reviewed, Anes Risks/Benef Reviewed and DNR Form (If Appl.) Patient Risk: Intermediate Procedure Risk: Intermediate Anesthetic Plan Anesthetic Plan: GA Disposition: Standard PACU
--- NOTE | 2024-07-09 15:09 | W.PM.OPN ---
Operative Note Operative Note Date of Service: 07/09/24 Narrative: Description:?Endoscopic retrograde cholangiopancreatography (ERCP) PROCEDURE:?Endoscopic retrograde cholangiopancreatography with extension of prior sphincterotomy, balloon dilation, stone extraction, intra op cholangiogram w/ interpretation and stent placement into the CBD INDICATION FOR THE PROCEDURE:?Patient with a history of abdominal pain and elevated LFT with concern for stone in the CBD MEDICATIONS:?General anesthesia, Ancef 1 g The risks of the procedure were made aware to the patient and consisted of medication reaction, bleeding, perforation, aspiration, and post ERCP pancreatitis. The risks of the procedure were made aware to the patient and consisted of medication reaction, bleeding, perforation, aspiration, and post ERCP pancreatitis. DESCRIPTION OF PROCEDURE: After informed consent and appropriate sedation, the duodenoscope was inserted into the oropharynx, down the esophagus, and into the stomach. The scope was then advanced through the pylorus to the ampulla. The ampulla had a bulbous appearance. An 12 mm extraction balloon was passed thru pre existing sphincterotmy into the CBD and a cholangiogram performed which revealed a 2 cm filling defect with grossly dilated CBD. The ballon was used to try to extract the stone but the balloon was too large. A tome was then used with guidewire and the sphincterotomy was extended. A basked was then used but only removed part of the stone which was green yellow in consistency. A Hurricane ballon was then used to stretch the otomy site and the extraction balloon was then used to removed more segments of the stone. There was also blood and clots coming out. A cholangiogram did not reveal any filling defect but due to the clots and possibility if further sludge or debris still in the duct I placed a 10 Fr by 9 cm stent. There was some minor oozing which had ceased by the end of the procedure. The stomach was then decompressed and the endoscope was withdrawn. FINDINGS: 1. Choledocholithiasis RECOMMENDATIONS: 1. NPO except ice chips for next 4-6 hrs then clears as tolerated, can advance diet tomorrow if feels well 2. Return for stent removal in 6-9 weeks with cholangiogram 3, commence ursodiol 500 mg BID to prevent further stone recurrence
[2024-07-09 15:12] LABS: Creatinine Urine 99.33 mg/dL; Total Protein Urine Random 49 mg/dL (<12)
[2024-07-09] MEDS: 0.9 % Sodium Chloride Flush 3 ML SYRINGE IVFLUSH (18:09)
[2024-07-10] VITALS (7 sets, daily range): BP systolic 115–161; BP diastolic 53–70; PULSE 61–77; RESP 15–18; TEMP 36.3–36.8; O2SAT 92–99
[2024-07-10] MEDS: Lactated Ringers 1,000 ML 125 ML IVCONT (04:52)
[2024-07-10 07:05] LABS: Basophils Percent Auto 0.3 % (0-2); Eosinophils Absolute Auto 0.1 X10*3/uL (0.0-0.4); Eosinophils Percent Auto 1.2 % (0-4); Hematocrit 26.6 % (37.0-47.0); Hemoglobin 8.5 g/dl (12.0-16.0); Imm Gran Abs Auto 0.03 X10*3/uL (0.00-0.03); Imm Gran Pct Auto 0.5 % (0.0-0.4); Lymphocytes Absolute Auto 0.7 X10*3/uL (1.2-4.9); MANUAL DIFF FLAG SCAN; Mean Corpuscular Hemoglobin 30.5 pg (27.0-33.0); Mean Corpuscular Volume 95.3 fL (80.0-98.0); Monocytes Absolute Auto 0.4 X10*3/uL (0.1-1.2); Monocytes Percent Auto 6.8 % (2-11); Neutrophils Absolute Auto 5.2 x10*3/uL (2.0-8.3); Neutrophils Percent Auto 80.2 % (45-73); PLT CLUMP 1; Red Blood Count 2.79 X10*6/uL (4.20-5.50); Red Cell Distribution Width 13.4 % (11.0-16.0); SCAN SMEAR FLAG 1
[2024-07-10 07:07] LABS: White Blood Count 6.5 X10*3/uL (4.8-10.8)
[2024-07-10 07:10] LABS: Anion Gap 15 (12-20); Blood Urea Nitrogen 27 mg/dL (9-16); Calcium 8.6 mg/dL (8.4-10.2); Carbon Dioxide 22 mmol/L (22-29); Chloride 111 mmol/L (96-108); Creatinine Clr Calc Pharmacy 25.2; Estimated Glomerular Filt Rate 38; Glucose Random 72 mg/dL (60-115); Potassium 4.5 mmol/L (3.3-5.1); Sodium 143 mmol/L (135-145)
[2024-07-10 07:31] LABS: Platelet Count 155 X10*3/uL (160-400)
[2024-07-10 07:36] LABS: Alanine Aminotransferase 387 U/L (0-31); Albumin Level 2.9 g/dL (3.5-5.0); Alkaline Phosphatase 449 U/L (39-117); Aspartate Amino Transferase 333 U/L (5-31); Bilirubin Direct 1.6 mg/dL (0.0-0.5); Bilirubin Total 2.1 mg/dL (0.0-1.0); Lipase 18 U/L (8-78); Total Protein 5.5 g/dL (6.5-8.0)
[2024-07-10] MEDS: Morphine Sulfate 4 MG/ML CARTRIDGE IVPUSH (07:51)
[2024-07-10] MEDS: 0.9 % Sodium Chloride Flush 3 ML SYRINGE IVFLUSH ×2 (07:55→20:42)
[2024-07-10] MEDS: carvediloL 3.125 MG TABLET PO ×2 (07:56→20:29)
[2024-07-10 08:04] LABS: SLIDE REVIEW VERIFIED
--- NOTE | 2024-07-10 08:10 | PC.NURSE ---
BP estfyhcy280/70 pulse 63,Dr. Story aware,patient asymptomatic,will monitor
--- NOTE | 2024-07-10 10:36 | HO.POSTANES ---
Post Anesthesia Evaluation Post Anesthesia Evaluation Date of Service: 07/09/24 Vital Signs: Vital Signs Temp Pulse Resp BP Pulse Ox O2 Del Method O2 Flow Rate 07/10/24 07:39 97.3 F 63 18 161/70 H 93 Nasal Cannula 1 07/10/24 04:00 97.8 F 69 16 140/68 H 99 Nasal Cannula 1 07/09/24 23:33 97.8 F 65 18 134/66 100 Nasal Cannula 1 Anesthesia: General Endotracheal-GETA Mental Status: Awake Pain Control: Satisfactory Nausea/Vomiting: None Hydration: Adequate Anesthesia-Related Issues: No Anes. Related Issues
--- NOTE | 2024-07-10 10:55 | HO.PM.IMPN ---
Subjective Subjective Date of Service: 07/10/24 Interval History: Being followed for common bile duct stone status post ERCP stent placement, balloon dilatation and extraction of stone. This morning patient complaining of sore abdomen no nausea no vomiting, no fevers no chills denies shortness of breath no other acute events overnight, is NPO. Review of Systems All other system reviewed and are negative. Physical Exam Vital Signs: Vital Signs: Last Vital Signs Temp 97.3 F 07/10/24 07:39 Pulse 63 07/10/24 07:39 Resp 18 07/10/24 07:39 BP 161/70 H 07/10/24 07:39 Pulse Ox 93 07/10/24 07:39 O2 Del Method Nasal Cannula 07/10/24 07:39 O2 Flow Rate 1 07/10/24 07:39 BMI result Body Mass Index 27.8 Const: Other: General in no acute distress. Anicteric sclera Neck no JVD. CVS regular rate rhythm, Respiratory lungs clear to auscultation, no respiratory distress, no wheeze, no rhonchi. Gastrointestinal abdomen soft, non tender, bowel sounds audible, no guarding , no rigidity. Extremities no edema. Neuro non focal Skin no rash Appropriate affect Objective Data Active Medications Acetaminophen (Acetaminophen 325 Mg Tablet) 650 mg PO Q6H PRN PRN Reason: Pain, Mild (Pain Scale 1-3), fever or headache Atorvastatin Calcium (Atorvastatin Calcium 40 Mg Tablet) 40 mg PO BEDTIME MALOU Calcium Carbonate (Calcium Carbonate 750 Mg Tab.Chew) 750 mg PO Q4H PRN PRN Reason: Heartburn Carvedilol (Carvedilol 3.125 Mg Tablet) 3.125 mg PO BID [facility]; Protocol Last Admin: 07/10/24 07:56 Dose: 3.125 mg Documented By: ABDON Lorazepam (Lorazepam 0.5 Mg Tablet) 0.5 mg PO DAILY PRN PRN Reason: Anxiety Magnesium Hydroxide (Milk Of Magnesia 30 Ml Oral.Susp) 30 ml PO DAILY PRN PRN Reason: Constipation Melatonin (Melatonin 3 Mg Tablet) 6 mg PO BEDTIME PRN PRN Reason: Insomnia Morphine Sulfate (Morphine Sulfate 4 Mg/Ml Cartridge) 4 mg IVPUSH Q4H PRN; Protocol PRN Reason: Pain, Severe (Pain Scale 7-10) Last Admin: 07/10/24 07:51 Dose: 4 mg Documented By: ABDON Naloxone HCl (Naloxone Hcl 0.4 Mg/Ml Vial) 0.04 mg IVPUSH Q5M PRN PRN Reason: Excessive sedation or RR < 8 Ondansetron HCl (Ondansetron Hcl 4 Mg/2 Ml Vial) 4 mg IVPUSH Q8H PRN PRN Reason: Nausea and Vomiting Last Admin: 07/09/24 06:17 Dose: 4 mg Documented By: BRIAN Sodium Chloride (0.9 % Sodium Chloride Flush 3 Ml Syringe) 3 ml IVFLUSH QSHIFT [facility] Last Admin: 07/10/24 07:55 Dose: 3 ml Documented By: ABDON Labs 07/10/24 05:24 07/10/24 05:24 Labs: Laboratory Results - last 24 hr 07/09/24 07/10/24 07/10/24 14:15 05:24 06:54 MCV 95.3 MCH 30.5 MCHC 32.0 RDW 13.4 Plt Count 155 L D MPV 11.0 Immature Gran % (Auto) 0.5 H Neut % (Auto) 80.2 H Lymph % (Auto) 11.0 L [place] % (Auto) 6.8 Eos % (Auto) 1.2 Baso % (Auto) 0.3 Lymph # (Auto) 0.7 L [place] # (Auto) 0.4 Eos # (Auto) 0.1 Baso # (Auto) 0.0 Abs Immat Gran (auto) 0.03 Absolute Neuts (auto) 5.2 Absolute Nucleated RBC 0.000 Nucleated RBC % (auto) 0.0 Smear Tech's Comments VERIFIED Anion Gap 15 Estim Creat Clear Calc 25.2 Estimated GFR 38 Random Glucose 72 Calcium 8.6 D Total Bilirubin 2.1 H Direct Bilirubin 1.6 H AST 333 H ALT 387 H Alkaline Phosphatase 449 H Total Protein 5.5 L Albumin 2.9 L Lipase 18 U Random Total Protein 49 H Ur Random Sodium 71.0 Urine Creatinine 99.33 Assessment and Plan (1) Intractable nausea and vomiting: Status: Acute Plan 88-year-old female with pertinent history of CKD stage 3, hypertension, history of TIA, aortic stenosis, mixed hyperlipidemia, gastroesophageal reflux disease, status post cholecystectomy who presents to the emergency department for evaluation of nausea and vomiting diagnosed to have elevated liver enzymes/alk-phos and CT imaging showed density within this distal CBD with CBD dilatation.. #. Choledocholithiasis /Intractable nausea and vomiting Nausea vomiting resolved, no abdominal pain MRCP showed distal common bile duct stone 1.5 cm underwent ERCP with a sphincterotomy, balloon dilatation extraction of stone and stent placement Persistent Elevated transaminases and alk-phos, noted to have worsening Bili, lipase normalized. On clear liquid diet will advance as tolerated, resume PPI Added ursodiol 500 b.i.d. as per GI recommendation Outpatient follow-up with GI in 6-8 weeks for follow-up on stent removal Recommend out of bed to chair and ambulation as tolerated Follow liver panel #. Acute kidney injury, likely prerenal resolved with IV fluids , appreciate renal input. #. Hypertension: Follow blood pressure closely continue Coreg and resume nifedipine, hold chlorthalidone and hydralazine. #. Mixed hyperlipidemia: Hold Lipitor due to elevated LFTs DNR/DNI. DVT prophylaxis: Mechanical Patient will require continued inpatient hospitalization for monitoring of renal function and liver enzymes and diet being gradually advanced. Quality Stroke Does the patient have a stroke diagnosis?: No VTE Prior VTE?: No VTE Risk Level:: Medical - moderate - high VTE Device Contraindication: N/A - Device Ordered VTE Drug Contraindication: Treatment Not Indicated
[2024-07-10] MEDS: NIFEdipine ER 30 MG TAB.ER.24 PO (11:48)
--- NOTE | 2024-07-10 12:34 | MHC.CM.PN ---
EMR REVIEWED, PT S/P ERCP, STENT AND BILE DUCT STONE REMOVAL, PT ON FULL LIQUID DIET AND RECEIVING IV PAIN MEDICATION, NO PLAN FOR DC AT THIS TIME, CM WILL CONT TO FOLLOW DC NEEDS.
--- NOTE | 2024-07-10 13:17 | P.PNNP_ITS ---
Subjective Subjective Date of Service: 07/10/24 Interval history: Seen and examined, events noted Physical Exam 2 Vital Signs: Vital Signs: Last Vital Signs Temp 98.2 F 07/10/24 11:25 Pulse 61 07/10/24 11:25 Resp 16 07/10/24 11:25 BP 148/63 H 07/10/24 11:25 Pulse Ox 92 07/10/24 11:25 O2 Del Method Room Air 07/10/24 11:25 O2 Flow Rate 1 07/10/24 07:39 BMI result Body Mass Index 27.8 Const: Other: General in no acute distress. Anicteric sclera Neck no JVD. CVS regular rate rhythm, Respiratory lungs clear to auscultation, no respiratory distress, no wheeze, no rhonchi. Gastrointestinal abdomen soft, non tender, bowel sounds audible, no guarding , no rigidity. Extremities no edema. Neuro non focal Skin no rash Appropriate affect Limitations: No language barrier Objective Data Labs 07/10/24 05:24 07/10/24 05:24 Labs: Laboratory Results - last 24 hr 07/09/24 07/10/24 07/10/24 14:15 05:24 06:54 WBC 6.5 RBC 2.79 L D Hgb 8.5 L D Hct 26.6 L D MCV 95.3 MCH 30.5 MCHC 32.0 RDW 13.4 Plt Count 155 L D MPV 11.0 Immature Gran % (Auto) 0.5 H Neut % (Auto) 80.2 H Lymph % (Auto) 11.0 L [place] % (Auto) 6.8 Eos % (Auto) 1.2 Baso % (Auto) 0.3 Lymph # (Auto) 0.7 L [place] # (Auto) 0.4 Eos # (Auto) 0.1 Baso # (Auto) 0.0 Abs Immat Gran (auto) 0.03 Absolute Neuts (auto) 5.2 Absolute Nucleated RBC 0.000 Nucleated RBC % (auto) 0.0 Smear Tech's Comments VERIFIED Sodium 143 Potassium 4.5 Chloride 111 H Carbon Dioxide 22 Anion Gap 15 BUN 27 H Creatinine 1.32 Estim Creat Clear Calc 25.2 Estimated GFR 38 Random Glucose 72 Calcium 8.6 D Total Bilirubin 2.1 H Direct Bilirubin 1.6 H AST 333 H ALT 387 H Alkaline Phosphatase 449 H Total Protein 5.5 L Albumin 2.9 L Lipase 18 U Random Total Protein 49 H Ur Random Sodium 71.0 Urine Creatinine 99.33 Procedures Date of Service Date of Service: 07/10/24 Assessment & Plan Assessment and plan (1) Elevated liver function tests: Status: Acute Plan 1. Non-Oliguric GERONIMO: resolving 2. CKD 3 3. Acute pancreatitis 4. HTN: incr BP REC: ok to d/c from renal standpoint; r/s BP meds exceept hold the diuretics for now Will follow w team Time Spent With Patient Time: Total time managing care of this patient today ____ minutes. Progress Note: Quality Stroke Does the patient have a stroke diagnosis?: No
[2024-07-10] MEDS: Acetaminophen 325 MG TABLET 650 MG PO ×2 (14:11→20:29)
[2024-07-10] MEDS: UrsodioL 300 MG CAPSULE PO (20:29)
[2024-07-11 04:00] VITALS: BP 153/67; PULSE 70; RESP 18; TEMP 36.4; O2SAT 93
[2024-07-11] MEDS: Omeprazole 40 MG CAPSULE.DR PO (05:05)
[2024-07-11] MEDS: Acetaminophen 325 MG TABLET 650 MG PO (05:05)
[2024-07-11 06:11] LABS: Hematocrit 24.9 % (37.0-47.0); Hemoglobin 8.1 g/dl (12.0-16.0); Mean Corpuscular HGB Conc 32.5 g/dl (31.0-35.0); Mean Corpuscular Hemoglobin 30.2 pg (27.0-33.0); Mean Corpuscular Volume 92.9 fL (80.0-98.0); Mean Platelet Volume 9.3 fL (9.4-12.3); Platelet Count 166 X10*3/uL (160-400); Red Blood Count 2.68 X10*6/uL (4.20-5.50); Red Cell Distribution Width 13.2 % (11.0-16.0); White Blood Count 5.5 X10*3/uL (4.8-10.8)
[2024-07-11 06:31] LABS: Alanine Aminotransferase 246 U/L (0-31); Albumin Level 2.9 g/dL (3.5-5.0); Alkaline Phosphatase 431 U/L (39-117); Anion Gap 12 (12-20); Aspartate Amino Transferase 154 U/L (5-31); Bilirubin Direct 1.2 mg/dL (0.0-0.5); Bilirubin Total 1.6 mg/dL (0.0-1.0); Blood Urea Nitrogen 24 mg/dL (9-16); Calcium 8.8 mg/dL (8.4-10.2); Carbon Dioxide 24 mmol/L (22-29); Chloride 107 mmol/L (96-108); Creatinine Clr Calc Pharmacy 30.2; Estimated Glomerular Filt Rate 47; Glucose Random 94 mg/dL (60-115); Potassium 4.1 mmol/L (3.3-5.1); Sodium 139 mmol/L (135-145); Total Protein 5.5 g/dL (6.5-8.0)
[2024-07-11 07:17] VITALS: BP 153/69; PULSE 57; RESP 18; TEMP 36.5; O2SAT 91
[2024-07-11] MEDS: 0.9 % Sodium Chloride Flush 3 ML SYRINGE IVFLUSH ×3 (08:09→20:34)
[2024-07-11] MEDS: NIFEdipine ER 30 MG TAB.ER.24 PO (08:10)
[2024-07-11] MEDS: UrsodioL 300 MG CAPSULE PO ×2 (08:10→20:32)
[2024-07-11 12:00] VITALS: BP 168/70; PULSE 57; RESP 18; TEMP 36.9; O2SAT 92
--- NOTE | 2024-07-11 12:15 | P.PNIM_ITS ---
Subjective Subjective Date of Service: 07/11/24 Interval History: Complaining of back pain , soreness in abdomen, denies nausea, no vomiting, no hematemesis, no melena, tolerating diet ,was unable to sleep last night due to back pain, denies fever, no chills, no other acute events overnight. Review of Systems All other system reviewed and are negative. Physical Exam 2 Vital Signs: Vital Signs: Last Vital Signs Temp 98.4 F 07/11/24 12:00 Pulse 57 07/11/24 12:00 Resp 18 07/11/24 12:00 BP 168/70 H 07/11/24 12:00 Pulse Ox 92 07/11/24 12:00 O2 Del Method Room Air 07/11/24 12:00 O2 Flow Rate 1 07/10/24 07:39 BMI result Body Mass Index 27.8 Const: Other: General in no acute distress. Anicteric sclera Neck no JVD. CVS regular rate rhythm, Respiratory lungs clear to auscultation, no respiratory distress, no wheeze, no rhonchi. Gastrointestinal abdomen soft, non tender, bowel sounds audible, no guarding , no rigidity. Extremities no edema. Neuro non focal Skin no rash Appropriate affect Objective Data Active Medications Acetaminophen (Acetaminophen 325 Mg Tablet) 650 mg PO Q6H PRN PRN Reason: Pain, Mild (Pain Scale 1-3), fever or headache Last Admin: 07/11/24 05:05 Dose: 650 mg Documented By: BEULAH Calcium Carbonate (Calcium Carbonate 750 Mg Tab.Chew) 750 mg PO Q4H PRN PRN Reason: Heartburn Carvedilol (Carvedilol 3.125 Mg Tablet) 3.125 mg PO BID [facility]; Protocol Last Admin: 07/11/24 08:08 Dose: Not Given Documented By: SANDIP Non-Admin Reason: HR 57 Lorazepam (Lorazepam 0.5 Mg Tablet) 0.5 mg PO DAILY PRN PRN Reason: Anxiety Magnesium Hydroxide (Milk Of Magnesia 30 Ml Oral.Susp) 30 ml PO DAILY PRN PRN Reason: Constipation Melatonin (Melatonin 3 Mg Tablet) 6 mg PO BEDTIME PRN PRN Reason: Insomnia Naloxone HCl (Naloxone Hcl 0.4 Mg/Ml Vial) 0.04 mg IVPUSH Q5M PRN PRN Reason: Excessive sedation or RR < 8 Nifedipine (Nifedipine Er 30 Mg Tab.Er.24) 30 mg PO DAILY [facility]; Protocol Last Admin: 07/11/24 08:10 Dose: 30 mg Documented By: SANDIP Omeprazole (Omeprazole 40 Mg Capsule.Dr) 40 mg PO DAILY@0630 [facility] Last Admin: 07/11/24 05:05 Dose: 40 mg Documented By: BEULAH Ondansetron HCl (Ondansetron Hcl 4 Mg/2 Ml Vial) 4 mg IVPUSH Q8H PRN PRN Reason: Nausea and Vomiting Last Admin: 07/09/24 06:17 Dose: 4 mg Documented By: BRIAN Sodium Chloride (0.9 % Sodium Chloride Flush 3 Ml Syringe) 3 ml IVFLUSH QSHIFT [facility] Last Admin: 07/11/24 08:09 Dose: 3 ml Documented By: SANDIP Ursodiol (Ursodiol 300 Mg Capsule) 300 mg PO BID [facility] Last Admin: 07/11/24 08:10 Dose: 300 mg Documented By: SANDIP Labs 07/11/24 05:58 07/11/24 05:58 Labs: Laboratory Results - last 24 hr 07/11/24 05:58 MCV 92.9 MCH 30.2 MCHC 32.5 RDW 13.2 Plt Count 166 MPV 9.3 L Absolute Nucleated RBC 0.000 Nucleated RBC % (auto) 0.0 Anion Gap 12 Estim Creat Clear Calc 30.2 Estimated GFR 47 Random Glucose 94 Calcium 8.8 Total Bilirubin 1.6 H Direct Bilirubin 1.2 H AST 154 H ALT 246 H Alkaline Phosphatase 431 H Total Protein 5.5 L Albumin 2.9 L Assessment and Plan (1) Intractable nausea and vomiting: Status: Acute (2) Elevated liver function tests: Status: Acute Plan 88-year-old female with pertinent history of CKD stage 3, hypertension, history of TIA, aortic stenosis, mixed hyperlipidemia, gastroesophageal reflux disease, status post cholecystectomy who presents to the emergency department for evaluation of nausea and vomiting diagnosed to have elevated liver enzymes/alk- phos and CT imaging showed density within this distal CBD with CBD dilatation.. #. Choledocholithiasis /Intractable nausea and vomiting Nausea ,vomiting resolved, no abdominal pain, mild soreness, leg pain likely muscular, continue Tylenol, hot pack MRCP showed distal common bile duct stone 1.5 cm underwent ERCP with a sphincterotomy, balloon dilatation extraction of stone and stent placement Persistent Elevated transaminases and alk-phos, noted to have worsening Bili, lipase normalized. Tolerating regular diet, continue PPI Added ursodiol 500 b.i.d. as per GI recommendation Outpatient follow-up with GI in 6-8 weeks for follow-up on stent removal Recommend out of bed to chair and ambulation as tolerated LFTs trending down, Follow liver panel # acute on chronic normocytic anemia likely dilutional, no acute blood loss noted /hemoglobin above transfusion threshold will follow CBC, check stool guaiac #. Acute kidney injury, likely prerenal resolved with IV fluids , appreciate renal input. #. Hypertension: on Coreg and nifedipine, elevated BP will resume hydralazine and continued to hold chlorthalidone #. Mixed hyperlipidemia: Hold Lipitor due to elevated LFTs DNR/DNI. DVT prophylaxis: Mechanical Patient will require continued inpatient hospitalization for monitoring of hematocrit, liver enzymes and close disposition. Quality Stroke Does the patient have a stroke diagnosis?: No VTE Prior VTE?: No VTE Risk Level:: Medical - moderate - high VTE Device Contraindication: N/A - Device Ordered VTE Drug Contraindication: Treatment Not Indicated
[2024-07-11] MEDS: ondansetron HCL 4 MG/2 ML VIAL IVPUSH ×2 (14:23→23:30)
[2024-07-11 15:48] VITALS: BP 146/62; PULSE 68; RESP 16; TEMP 36.8; O2SAT 90
[2024-07-11] MEDS: Calcium Carbonate 750 MG TAB.CHEW PO (19:43)
[2024-07-11 20:00] VITALS: BP 141/72; PULSE 68; RESP 18; TEMP 36.7; O2SAT 92
[2024-07-11] MEDS: carvediloL 3.125 MG TABLET PO (20:32)
[2024-07-11] MEDS: hydrALAZINE HCl 25 MG TABLET PO (20:32)
[2024-07-11] MEDS: LORazepam 0.5 MG TABLET PO (23:43)
[2024-07-12] VITALS: BP 153/68; PULSE 77; RESP 18; TEMP 37.3; O2SAT 92
[2024-07-12 03:20] VITALS: BP 140/75; PULSE 65; RESP 18; TEMP 36.8; O2SAT 94
[2024-07-12] MEDS: Omeprazole 40 MG CAPSULE.DR PO (05:43)
[2024-07-12 07:17] LABS: Hematocrit 26.3 % (37.0-47.0); Hemoglobin 8.8 g/dl (12.0-16.0); Mean Corpuscular HGB Conc 33.5 g/dl (31.0-35.0); Mean Corpuscular Hemoglobin 30.6 pg (27.0-33.0); Mean Corpuscular Volume 91.3 fL (80.0-98.0); Mean Platelet Volume 9.8 fL (9.4-12.3); Platelet Count 184 X10*3/uL (160-400); Red Blood Count 2.88 X10*6/uL (4.20-5.50); Red Cell Distribution Width 12.9 % (11.0-16.0); White Blood Count 4.7 X10*3/uL (4.8-10.8)
[2024-07-12 07:34] LABS: Alanine Aminotransferase 171 U/L (0-31); Alkaline Phosphatase 427 U/L (39-117); Aspartate Amino Transferase 69 U/L (5-31); Bilirubin Direct 0.9 mg/dL (0.0-0.5); Bilirubin Total 1.3 mg/dL (0.0-1.0); Total Protein 5.7 g/dL (6.5-8.0)
[2024-07-12 08:00] VITALS: BP 167/77; PULSE 68; RESP 18; TEMP 36.6; O2SAT 91
[2024-07-12] MEDS: 0.9 % Sodium Chloride Flush 3 ML SYRINGE IVFLUSH (08:01)
[2024-07-12] MEDS: hydrALAZINE HCl 25 MG TABLET PO (08:02)
[2024-07-12] MEDS: carvediloL 3.125 MG TABLET PO (08:02)
[2024-07-12] MEDS: NIFEdipine ER 30 MG TAB.ER.24 PO (08:02)
[2024-07-12] MEDS: UrsodioL 300 MG CAPSULE PO (08:02)
--- NOTE | 2024-07-12 09:38 | PM.DS ---
DS: Providers Provider Date of Service: 07/12/24 Date of admission: 07/09/24 05:56 Date of discharge: 07/12/24 Primary care physician: Devin Hall MD Consults: 07/09/24 07:26 Consult to Gastroenterology Routine Consulting Provider: Hipolito De La Vega Reason for consultation: cbd dilatation Has provider been notified: No 07/09/24 10:22 Consult to Nephrology Routine Consulting Provider: [facility] Reason for consultation: leelee on ckd Has provider been notified: No DS: Diagnosis Discharge Diagnosis (1) Intractable nausea and vomiting: Status: Acute (2) Elevated liver function tests: Status: Acute DS: Summary Hospital Course Hospital Course: History of presenting illness: Date of Service: 07/09/24 Chief Complaint: Nausea and vomiting This is a 88-year-old female with pertinent history of CKD stage 3, hypertension, history of TIA, aortic stenosis, mixed hyperlipidemia, gastroesophageal reflux disease, status post cholecystectomy who presents to the emergency department for evaluation of nausea and vomiting. Patient states her symptoms started 3 days prior to presentation and have been progressive. Patient has been having multiple episodes of nausea and nonbloody emesis. Unable to tolerate p.o. intake. Also complaining of back pain. Denies abdominal discomfort. No fever, chills, chest pain, palpitations, shortness of breath, changes in urinary or bowel habits. In the emergency department, creatinine found to be elevated at 2, serum lipase elevated. Imaging with CBD elevation and density in the distal CBD. 88-year-old female with pertinent history of CKD stage 3, hypertension, history of TIA, aortic stenosis, mixed hyperlipidemia, gastroesophageal reflux disease, status post cholecystectomy who presents to the emergency department for evaluation of nausea and vomiting diagnosed to have elevated liver enzymes/alk-phos and CT imaging showed density within distal CBD with CBD dilatation, MRCP showed distal common bile duct stone 1.5 cm Patient admitted to medical floor with a diagnosis of Choledocholithiasis with Intractable nausea and vomiting, underwent ERCP with sphincterotomy, balloon dilatation, extraction of stone and stent placement, postprocedure noted to have elevated transaminases and alk-phos that are gradually trending down, elevated lipase due to obstruction improved, patient started on ursodiol to prevent further stone formation, currently patient is tolerating regular diet with no abdominal pain, no nausea ,no vomiting, and since hemodynamically stable she is being discharged home with recommendation to hold Lipitor for 1 week due to elevated liver enzymes, and to have outpatient follow-up with GI in 6-8 weeks for removal of stent. # acute on chronic normocytic anemia likely dilutional, no acute blood loss noted , repeat hematocrit stable. #. Acute kidney injury, likely prerenal resolved with IV fluids , recommend to hold chlorthalidone, outpatient follow-up with Nephrology. #. Hypertension: on Coreg , nifedipine and hydralazine , recommend to DC chlorthalidone and follow BP . #. Mixed hyperlipidemia: Resume Lipitor after 1 week. Time Attestation Discharge Coordination Time (in mins): 38 Quality: Safe Use of Opioids Does Pt have an Active Cancer Diagnosis on the Problem List?: No Quality: Stroke Does the patient have a stroke diagnosis?: No Physical Exam Vital Signs: Vital Signs: Last Vital Signs Temp 97.8 F 07/12/24 08:00 Pulse 68 07/12/24 08:00 Resp 18 07/12/24 08:00 BP 167/77 H 07/12/24 08:00 Pulse Ox 91 L 07/12/24 08:00 O2 Del Method Room Air 07/12/24 08:00 O2 Flow Rate 1 07/10/24 07:39 BMI result Body Mass Index 27.8 Const: Other: General in no acute distress. Anicteric sclera Neck no JVD. CVS regular rate rhythm, Respiratory lungs clear to auscultation, no respiratory distress, no wheeze, no rhonchi. Gastrointestinal abdomen soft, non tender, bowel sounds audible, no guarding , no rigidity. Extremities no edema. Neuro non focal Skin no rash Appropriate affect DS: Data Data Completed and Pending Completed studies during hospitalization [Text1]: Procedures Dilation of Common Bile Duct, Via Natural or Artificial Opening Endoscopic (01/02/22) Resection of Gallbladder, Percutaneous Endoscopic Approach (01/02/22) Labs on day of discharge: Laboratory Results - last 24 hr 07/12/24 06:37 WBC 4.7 L RBC 2.88 L Hgb 8.8 L Hct 26.3 L MCV 91.3 MCH 30.6 MCHC 33.5 RDW 12.9 Plt Count 184 MPV 9.8 Absolute Nucleated RBC 0.000 Nucleated RBC % (auto) 0.0 Total Bilirubin 1.3 H Direct Bilirubin 0.9 H AST 69 H ALT 171 H Alkaline Phosphatase 427 H Total Protein 5.7 L Albumin 3.0 L Discharge Plan Discharge Anticipated Discharge Date/Time: 07/12/24 09:32 Patient Disposition: Home, Self-Care Discharge Diagnosis: Choledocholithiasis Acute on chronic normocytic anemia Acute kidney injury Referrals: Devin Hall MD [Primary Care Provider] - 1 Week Discharge Medications: New ursodiol 500 mg tablet 500 mg PO BID Qty: 180 0RF Continued clopidogrel 75 mg tablet 75 mg PO DAILY 7 Days Qty: 90 3RF lorazepam 0.5 mg tablet 0.5 mg PO DAILY PRN (Reason: Anxiety) Qty: 60 0RF carvedilol 3.125 mg tablet 3.125 mg PO BID 90 Days Qty: 180 0RF Protocol: Hold for SBP/HR < HOLD for SBP < : 90 HOLD for HR < : 60 pantoprazole 40 mg tablet,delayed release (DR/EC) 40 mg PO DAILY@0630 Qty: 90 0RF benzonatate 200 mg capsule 200 mg PO TID PRN (Reason: cough) Qty: 20 0RF acetaminophen [Tylenol] 325 mg Tablet 650 mg PO Q6H PRN (Reason: Pain) psyllium Packet 1 packet PO BEDTIME Rx Instructions: mix into at least 8 oz of water or juice before administering PreserVision AREDS-2 250-90-40-1 mg Capsule 1 tab PO BID ergocalciferol (vitamin D2) 1,250 mcg (50,000 unit) capsule 1,250 mcg PO Q14D (DME) comp.stocking,knee,long,medium Misc See Rx Instructions .Route Qty: 2 0RF Rx Instructions: As directed hydralazine 25 mg tablet 25 mg PO BID nifedipine 30 mg tablet extended release 24hr 30 mg PO DAILY Held atorvastatin 40 mg tablet 40 mg PO BEDTIME Hold Instructions: Resume on 06/22/24. Discontinued chlorthalidone 25 mg tablet 25 mg PO DAILY Qty: 90 0RF Discharge Orders: Discharge Order (Routine); Ordered 07/12/24 Ordered By: Moy Story Diet: Low fat, low cholesterol Activity on Discharge: As tolerated Stand Alone Forms: Patient Portal Discharge page Print Language: Estonian Care Plan Goals: Common bile duct stone removed stent placed/needs follow-up with gastroenterology in 6-8 weeks for removal of stent Resume Lipitor after 1 week due to elevated liver enzymes Stop chlorthalidone New medication ursodiol 500mg 1 tablet twice daily to prevent stone formation Health Concerns: Continue all other medications as before Plan of Treatment: Follow-up with Dr. De La Vega from Gastroenterology in 6-8 weeks for removal stent Follow-up with primary care physician call for appointment Assessment: As above
--- NOTE | 2024-07-12 09:51 | MHC.CM.PN ---
PER MD PATIENT MEDICALLY CLEARED FOR DC HOME SELF CARE. DAUGHTER WILL TRANSPORT HOME ~2PM. RN AWARE.
[2024-07-12 11:37] VITALS: BP 124/77; PULSE 99; RESP 18; TEMP 36; O2SAT 93
== END 2024-07-12 14:30 | disposition home or self-care (01) | DRG 445 ==
LOC: HO.ED 05:32 → HO.EDOVER 06:01 → HO.S3 07:37
PROVIDERS: Internal Medicine Gastroenterology; Internal Medicine Nephrology; Admitting Provider Student in an Organized Health Care Education/Training Program; Emergency Provider Internal Medicine; PCP Internal Medicine; Visit Provider Hospitalist
PROC: 0FC98ZZ Extirpation of Matter from Common Bile Duct, Via Natural or Artificial Opening Endoscopic (ICD-10-PCS; CPT 43260; principal; 2024-07-09 16:00)
DX: K80.50 Calculus of bile duct without cholangitis or cholecystitis without obstruction (principal); N17.9 Acute kidney failure, unspecified; I12.9 Hypertensive chronic kidney disease with stage 1 through stage 4 chronic kidney disease, or unspecified chronic kidney disease; D63.1 Anemia in chronic kidney disease; N18.30 Chronic kidney disease, stage 3 unspecified; E78.2 Mixed hyperlipidemia; Z66 Do not resuscitate; K21.9 Gastro-esophageal reflux disease without esophagitis; Z20.822 Contact with and (suspected) exposure to COVID-19; Z86.73 Personal history of transient ischemic attack (TIA), and cerebral infarction without residual deficits; Z87.891 Personal history of nicotine dependence; Z79.899 Other long term (current) drug therapy
CPT/HCPCS: 0241U; 36415; 74176; 74181; 80048; 80053; 80076; 82570; 83690; 84156; 84300; 84478; 84484; 85025; 85027; 93005; 99285; C1726; C1769; C2625; J0131; J0690; J1100; J1610; J2003; J2250; J2270; J2405; J2704; J3010; J7120; Q9967

== ENCOUNTER → 2024-07-09 02:14 | Outpatient (BNV) | payer MEDICARE, SELFPAY | PROVIDERS: Admitting Provider Student in an Organized Health Care Education/Training Program; Emergency Provider Internal Medicine; PCP Internal Medicine; Visit Provider Internal Medicine Cardiovascular Disease | DX: R94.31 Abnormal electrocardiogram [ECG] [EKG] (principal) | CPT/HCPCS: 93010 ==

== ENCOUNTER → 2024-07-09 05:56 | Outpatient (BNV) | payer MEDICARE, SELFPAY | PROVIDERS: Admitting Provider Student in an Organized Health Care Education/Training Program; Emergency Provider Internal Medicine; PCP Internal Medicine; Visit Provider Internal Medicine Gastroenterology | DX: R74.01 Elevation of levels of liver transaminase levels (principal); K57.90 Diverticulosis of intestine, part unspecified, without perforation or abscess without bleeding | CPT/HCPCS: 43274; 99232 ==

== ENCOUNTER → 2024-07-09 05:56 | Outpatient (BNV) | payer MEDICARE, SELFPAY | PROVIDERS: Admitting Provider Student in an Organized Health Care Education/Training Program; Emergency Provider Internal Medicine; Visit Provider Student in an Organized Health Care Education/Training Program | DX: R11.2 Nausea with vomiting, unspecified (principal); R79.89 Other specified abnormal findings of blood chemistry | CPT/HCPCS: 99223; 99232; 99239; 99499 ==

== ENCOUNTER 2024-07-21 12:57 | Outpatient (AMB) | payer MEDICARE, SELFPAY ==
[2024-07-21 13:04] VITALS: BP 128/62; PULSE 65; O2SAT 96; BMI 26.4
--- NOTE | 2024-07-21 13:04 | A.OFFPC_ITS ---
Vital Signs 07/21/24 13:04 Height 5 ft Weight 135 lb BMI 26.4 BP 128/62 Blood Pressure Location Lt brachial Position Sitting Pulse 65 Pulse Source Pulse Oximeter Pulse Oximetry (%) 96 Oxygen Delivery Method Room Air Intake Visit Reasons[place] [facility] [place] [facility] [place] Therapy Coordinator Required: No Accompanied by: Daughter Allergies No Known Drug Intolerances Allergy (Unknown, Verified 07/21/24 13:07) NOT APPLICABLE Medication List - Last Reconciled 07/21/24 by Devin Hall MD acetaminophen (Tylenol) 650 mg PO Q6H PRN atorvastatin 40 mg PO BEDTIME benzonatate 200 mg PO TID PRN carvedilol 3.125 mg See Protocol PO BID 90 days chlorthalidone 25 mg PO DAILY clopidogrel 75 mg PO DAILY 7 days comp.stocking,knee,long,medium As directed ergocalciferol (vitamin D2) 1,250 mcg PO Q14D hydralazine 25 mg PO BID lorazepam 0.5 mg PO DAILY PRN nifedipine ER 30 mg PO DAILY pantoprazole 40 mg PO DAILY@0630 psyllium 1 packet PO BEDTIME ursodiol 500 mg PO BID vit C,C-Vd-systq-lutein-zeaxan 250-90-40-1 mg (PreserVision AREDS-2) 1 tab PO BID Tobacco use date assessed: 05/20/24 Fall risk assessment: No Falls in past year Last assessed Fall Risk: 07/21/24 Dental Screening Dental Screen Date: 05/20/24 HPI [place] [facility] [place]om[place] HPI Details had a common duct stone and stent placed last month due to stones; feeling well and eating better [facility] Information Date of Discharge 07/12/24 Discharged From [facility] Medical History Cataract of left eye FHx: total knee replacement COVID-19 Cerebral microvascular disease Cerebral infarction Anemia Bradycardia Hypertension Aortic stenosis Biliary colic Hypertension Hyperlipidemia Surgical History History of cholecystectomy S/P laparoscopic cholecystectomy [place], bilateral Total knee replacement status Family History Father Heart disease Mother No problems noted. Brother Heart disease Social History Household Members: None Housing: House Do you presently have visiting nurse or other home services: Yes Unable to assess alcohol history related to: Unknown Alcohol intake: current Alcohol intake frequency: holidays/special occasions only Alcohol type: hard liquor Comment: no fluids given po Patient Tobacco Use Status: Former Tobacco user Tobacco use type: Cigarette Years Smoked: 25 e-Cigarette/Vaping Use: Never Used Second Hand Smoke Exposure: No Advance Directives Date on File: 02/17/21 service: No Current occupational status: retired Cognitive needs: Yes (walker, wheel chair, cane) Hearing needs: No Vision needs: Yes (glasses) Questionnaire Thrive Questionnaire Date Thrive assessed: 07/09/24 VY-7 AMB Questionnaire VY-7 Date VY - 7 assessed: 05/20/24 Source: Developed by Drs. Chris Madison, Felicia Zambrano, Brett Ruiz and colleagues, with an educational helga from [employer]. Review of Systems Const Denies chills, Denies headache(s) and Denies weight loss ENT Denies headache(s) Card Denies chest pain, Denies syncope, Denies irregular heart rhythm and Denies dyspnea Resp Denies chest congestion, Denies cough and Denies dyspnea GI Denies abdominal pain, Denies change in stool character, Denies nausea and Denies vomiting Musc Denies deformity and Denies joint swelling Neuro Denies syncope and Denies headache(s) Physical exam (Primary Care) Vital Signs: Last Vital Signs Pulse 65 07/21/24 13:04 BP 128/62 07/21/24 13:04 Pulse Ox 96 07/21/24 13:04 Oxygen Delivery Method Room Air 07/21/24 13:04 BMI result Body Mass Index 26.4 Tobacco/Smoking Status: Tobacco use Status Tobacco use date assessed 05/20/24 07/21/24 13:08 Patient Tobacco Use Status Former Tobacco user 07/21/24 13:08 Tobacco use type Cigarette 07/21/24 13:08 e-Cigarette/Vaping Use Never Used 07/21/24 13:08 Thrive Assessment: Date of Thrive Assessment Date Thrive assessed 07/09/24 07/21/24 13:08 Const General: cooperative, comfortable, no acute distress and alert Neck Neck: Yes no lymphadenopathy Thyroid: Thyroid normal Resp Effort & Inspection: normal respiratory effort Auscultation: clear to auscultation bilaterally Percussion: percussion normal Cardio Jugular venous distension: no JVD Palpation: normal PMI Rate: regular rate Rhythm: regular rhythm Heart sounds: S1 normal heart sound present and S2 normal heart sound present GI Inspection: Yes normal to inspection Palpation (GI): No hepatosplenomegaly present Skin General skin exam: no rashes or lesions noted Extrem General: Yes no clubbing, cyanosis or edema Coding Level of Care Code Est Pt Level 3 (91571) Diagnoses Common bile duct stone K80.50 Assessment & Plan Assessment & Plan (1) Common bile duct stone: Code(s): K80.50 - Calculus of bile duct without cholangitis or cholecystitis without obstruction Plan: as per gi
== END 2024-07-21 13:58 | disposition home or self-care (01) ==
LOC: HO.HMCH 12:58
PROVIDERS: PCP Internal Medicine; Visit Provider Internal Medicine
DX: K80.50 Calculus of bile duct without cholangitis or cholecystitis without obstruction (principal)

== ENCOUNTER → 2024-07-21 12:57 | Outpatient (BNVA) | payer MEDICARE, SELFPAY | PROVIDERS: PCP Internal Medicine; Visit Provider Internal Medicine | DX: K80.50 Calculus of bile duct without cholangitis or cholecystitis without obstruction (principal) | CPT/HCPCS: 99212 ==

== ENCOUNTER → 2024-07-28 09:02 | Outpatient (REF) | payer MEDICARE, SELFPAY ==
--- NOTE | 2024-07-28 09:05 | CA_ITS ---
Transthoracic Echocardiogram Patient (Last, First, Middle): Nickie Contreras E Gender: Female Date of : 1935 Age: 88 Procedure Date: 07/28/2024 Procedure Type: Transthoracic Echocardiogram Location: OP Height: 152.4 cm Weight: 61.69 kg BSA: 1.58 m2 Heart Rate: 58 bpm BP: 176 / 80 mmHg Cleaner And Presser: MIRI Referring MD: Sloane Sandra RNFAKeerthi Symptoms: I35.0 - Nonrheumatic aortic (valve) stenosis Study Quality: Adequate ECG Rhythm: Bradycardia Conclusions: - The left ventricular systolic function is normal. The calculated ejection fraction is 70% by biplane method. - There is mild aortic valve stenosis. There is mild aortic valve regurgitation. Findings Left Ventricle Normal left ventricular cavity size. There is mildly increased left ventricular wall thickness. The left ventricular systolic function is normal. The calculated ejection fraction is 70% by biplane method. There is no evidence of regional wall motion abnormalities. Diastolic function is normal for age. Right Ventricle Normal right ventricular cavity size and systolic function. Atria Both atria are normal in size. Aortic Valve There is moderate calcification of the aortic valve. There is mild aortic valve stenosis. The peak aortic velocity is 2.67 m/s with a calculated peak gradient of 29 mmHg. The mean gradient is 16 mmHg. The aortic valve area is 1.44 cm2. There is mild aortic valve regurgitation. Mitral Valve There is mild mitral annular calcification. There is no mitral valve regurgitation. There is no mitral valve stenosis. Pulmonic Valve The pulmonic valve is likely normal. Tricuspid Valve There is trace tricuspid valve regurgitation. There is no evidence of pulmonary hypertension. Great Vessels The asc aorta and aortic arch are normal in size. Venous The inferior vena cava is normal in size and collapses greater than 50% with inspiration. Pericardium/Pleural There is no evidence of pericardial effusion. Prior Study Comparison No significant change compared to prior study dated: 03/05/2022. Measurements 2D Linear Measurements IVSd: 1.14 0.6-0.9/0.6-1.0 cm LVIDd: 4.27 3.9-5.3/4.2-5.9 cm LVIDd Index: 2.70 2.4-3.2/2.2-3.1 cm/m2 LVIDs: 2.65 2.0-3.6 cm LVPWd: 1.23 0.7-1.1 cm LA Diam: 3.70 2.7-3.8/3.0-4.0 cm LAIDs Index: 2.34 1.5-2.3 cm/m2 LV Mass: 223.50 67-162/88-224 g LV Mass Index: 141.45 43-95/49-115 g/m2 LVOT Diam: 2.10 3.0+(-)1.3 cm 2D Systolic Function EF 4C: 66.50 >55% EF 2C: 72.40 >55% EF BiP: 69.70 >55% Mitral Valve MV VTI: 0.33 MV Pk Mando: 1.29 MV Mn Mando: 0.54 MV Pk Grad: 7.00 MV Mn Grad: 2.00 MV Pk E: 0.86 MV PK A: 1.35 MV Decel Time: 273.00 E/A: 0.60 E'Lateral: 6.20 E'Medial: 5.98 E/E' Med: 14.40 E/E' Lat: 13.90 PHT: 80.00 MVA PHT: 2.75 MVA Continuity: 2.89 Decel Wise: 3.16 Aortic Valve AoV Pk Mando: 2.67 AoV Mn Mando: 1.87 AoV VTI: 0.66 AoV Pk Grad: 29.00 Aov Mn Grad: 16.00 ELDER Cont.VTI: 1.44 AI Pk Mando: 4.99 AI Wise: 2.76 LVOT LVOT Pk Mando: 1.31 LVOT Mn Mando: 0.79 LVOT VTI: 0.28 LVOT Pk Grad: 7.00 LVOT Mn Grad: 3.00 LVOT Diam: 2.10 LVOT Area: 3.46 Diastolic Function MV Pk E: 0.86 MV Pk A: 1.35 E/A: 0.60 E'Medial: 5.98 E/E' Med: 14.40 E' Laterial: 6.20 E/E' Lat: 13.90 Right Ventricle TAPSE (mm): 21.70 TVS' Mando: 14.70 Tricuspid Valve TR Pk Mando: 2.34 TR Pk Grad: 22.00 RA Press: 3.00 RVSP: 25.00 Great Vessels Aorta Sinus of Valsalva: 3.10 2.0-3.5 cm Ao Asc: 3.30 2.1-3.4 cm Ao Arch: 2.70 Pulmonary Valve PV Pk Mando: 1.44 Peak PV Grad: 8.00 Updated in Other Vendor System with Status of Final Shahbaz Solano MD electronically signed on 07/28/2024 2:15:10 PM with status of Final
== END ==
LOC: HO.CARD 09:02
PROVIDERS: PCP Internal Medicine; Visit Provider Nurse Practitioner Family
DX: I35.0 Nonrheumatic aortic (valve) stenosis (principal); R06.02 Shortness of breath
CPT/HCPCS: 93306

== ENCOUNTER → 2024-07-28 09:05 | Outpatient (BNV) | payer MEDICARE, SELFPAY | PROVIDERS: PCP Internal Medicine; Visit Provider Internal Medicine | DX: I35.2 Nonrheumatic aortic (valve) stenosis with insufficiency (principal); I35.8 Other nonrheumatic aortic valve disorders; I34.81 Nonrheumatic mitral (valve) annulus calcification | CPT/HCPCS: 93306 ==

== ENCOUNTER 2024-08-11 08:28 | Day surgery (SDC) | payer MEDICARE, SELFPAY ==
[2024-08-07 10:16] VITALS: BMI 26.4
--- NOTE | 2024-08-07 12:08 | P.CONAN_ITS ---
Documented by User: Anne Humphreys NP 08/07/24 12:15 HPI - Anesthesia Eval Consult details Narrative: 88yo F for ERCP, spyglass, possible stent ?DNR ?Blood refusal s/p ERCP 06/2024 during inpatient: Hospital course... presents to the emergency department for evaluation of nausea and vomiting diagnosed to have elevated liver enzymes/alk-phos and CT imaging showed density within distal CBD with CBD dilatation, MRCP showed distal common bile duct stone 1.5 cm Patient admitted to medical floor with a diagnosis of Choledocholithiasis with Intractable nausea and vomiting, underwent ERCP with sphincterotomy, balloon dilatation, extraction of stone and stent placement, postprocedure noted to have elevated transaminases and alk-phos that are gradually trending down, elevated lipase due to obstruction improved, patient started on ursodiol to prevent further stone formation, currently patient is tolerating regular diet with no abdominal pain, no nausea ,no vomiting, and since hemodynamically stable she is being discharged home with recommendation to hold Lipitor for 1 week due to elevated liver enzymes, and to have outpatient follow-up with GI in 6-8 weeks for removal of stent. Plavix for hx cva PMFSH Active Problems Active Problems: All Active Problems Elevated liver function tests (Acute) Shortness of breath (Acute) Physical exam (Acute) Grief (Acute) Anxiety (Acute) Chest tightness (Acute) Preop exam for internal medicine (Acute) Leg edema (Acute) Chronic GERD (Acute) Aortic stenosis (Acute) Hypertension (Acute) Hyperlipidemia (Acute) COVID-19 (Acute) Past Medical History Medical History (Updated 08/07/24 @ 09:44 by Merced Mittal RN) Cataract of left eye FHx: total knee replacement COVID-19 Cerebral microvascular disease Cerebral infarction Anemia Bradycardia Hypertension Aortic stenosis Biliary colic Hyperlipidemia Family History Family History Father Heart disease Mother No problems noted. Brother Heart disease Family history of problems with anesthesia: No Surgical History Surgical History (Updated 08/07/24 @ 10:16 by Merced Mittal RN) History of ERCP History of cholecystectomy S/P laparoscopic cholecystectomy Hammertoe, bilateral Total knee replacement status History of Problems with Anesthesia: No Social History Social History Household Members: None Housing: House Are you a primary home health caregiver to a significant other at home: No Do you presently have visiting nurse or other home services: Yes Unable to assess alcohol history related to: Unknown Alcohol intake: current Alcohol intake frequency: holidays/special occasions only Alcohol type: hard liquor Comment: no fluids given po Patient Tobacco Use Status: Former Tobacco user Tobacco use type: Cigarette Years Smoked: 25 e-Cigarette/Vaping Use: Never Used Second Hand Smoke Exposure: No Use of substances other than those prescribed or required for medical reasons: No Have you been hit, kicked, punched, or otherwise hurt by someone within the past year? If so, by whom?: No Spiritual Healthcare Practices: none Evangelical Healthcare Practices: Danna Jacobson Cultural Healthcare Practices: none Advance Directives: Yes (daughter is HCP) Advance Directives Information Provided: Yes Advance Directives on File: Yes Advance Directives Date on File: 04/03/16 Recently lost weight without trying: No Eating poorly because of decreased appetite: No Nutrition Risks: Surgical patient >75years FDLMP: n/a service: No Current occupational status: retired Cognitive needs: Yes (walker, wheel chair, cane) Hearing needs: No Vision needs: Yes (glasses) Meds Allergies Allergy/AdvReac Type Severity Reaction Status Date / Time No Known Allergies Allergy Verified 08/11/24 08:48 Home Medications ?Medication ?Instructions ?Recorded ?Confirmed ?Last Taken ?Type ergocalciferol (vitamin D2) 1,250 1,250 mcg PO Q14D 09/30/20 08/11/24 06/29/24 History mcg (50,000 unit) capsule hydralazine 25 mg tablet 25 mg PO BID 06/19/23 08/11/24 08/11/24 07:00 History nifedipine 30 mg tablet,extended 30 mg PO DAILY 06/19/23 08/11/24 08/11/24 07:00 History release 24 hr acetaminophen 325 mg tablet 650 mg PO Q6H PRN Pain 07/09/24 08/11/24 Unknown History (Tylenol) atorvastatin 40 mg tablet 40 mg PO BEDTIME 07/09/24 08/11/24 07/08/24 History psyllium 1 packet PO BEDTIME 07/09/24 08/11/24 07/08/24 History vit C 250 mg-vit E 90 mg-zinc 40 1 tab PO BID 07/09/24 08/11/24 07/08/24 History mg-copper 1 [id number] capsule (PreserVision AREDS-2) Exam Height,Weight and Vital Signs: Height 5 ft Weight 61.235 kg Pertinent Lab Results Pertinent Lab Results: Laboratory Tests 07/11/24 05:58 Sodium 139 Potassium 4.1 Chloride 107 Carbon Dioxide 24 BUN 24 H Creatinine 1.10 Narrative Narrative: ECHO 07/2024 Conclusions: - The left ventricular systolic function is normal. The calculated ejection fraction is 70% by biplane method. - There is mild aortic valve stenosis. There is mild aortic valve regurgitation. EKG 06/2024 Vent. Rate : 080 BPM Atrial Rate : 080 BPM P-R Int : 168 ms QRS Dur : 074 ms QT Int : 346 ms P-R-T Axes : -17 001 055 degrees QTc Int : 399 ms Normal sinus rhythm Nonspecific ST abnormality Abnormal ECG When compared with ECG of 13-AUG-2023 15:36, No significant change was found Assessment and Plan Assessment Anesthesia Assessment: Chart Reviewed Final Anesthetic Review Family History of Problems with Anesthesia: No History of Problems with Anesthesia: No Documented by User: Zak Mccloud MD 08/11/24 11:41 [facility] Past Medical History Medical History (Updated 08/07/24 @ 09:44 by Merced Mittal RN) Cataract of left eye FHx: total knee replacement COVID-19 Cerebral microvascular disease Cerebral infarction Anemia Bradycardia Hypertension Aortic stenosis Biliary colic Hyperlipidemia Family History Family History Father Heart disease Mother No problems noted. Brother Heart disease Surgical History Surgical History (Updated 08/07/24 @ 10:16 by Merced Mittal RN) History of ERCP History of cholecystectomy S/P laparoscopic cholecystectomy Hammertoe, bilateral Total knee replacement status Social History Social History Household Members: None Housing: House Are you a primary home health caregiver to a significant other at home: No Do you presently have visiting nurse or other home services: Yes Unable to assess alcohol history related to: Unknown Alcohol intake: current Alcohol intake frequency: holidays/special occasions only Alcohol type: hard liquor Comment: no fluids given po Patient Tobacco Use Status: Former Tobacco user Tobacco use type: Cigarette Years Smoked: 25 e-Cigarette/Vaping Use: Never Used Second Hand Smoke Exposure: No Use of substances other than those prescribed or required for medical reasons: No Have you been hit, kicked, punched, or otherwise hurt by someone within the past year? If so, by whom?: No Spiritual Healthcare Practices: none Evangelical Healthcare Practices: Danna Jacobson Cultural Healthcare Practices: none Advance Directives: Yes (daughter is HCP) Advance Directives Information Provided: Yes Advance Directives on File: Yes Advance Directives Date on File: 04/03/16 Recently lost weight without trying: No Eating poorly because of decreased appetite: No Nutrition Risks: Surgical patient >75years FDLMP: n/a service: No Current occupational status: retired Cognitive needs: Yes (walker, wheel chair, cane) Hearing needs: No Vision needs: Yes (glasses) Meds Allergies Allergy/AdvReac Type Severity Reaction Status Date / Time No Known Allergies Allergy Verified 08/11/24 08:48 Home Medications ?Medication ?Instructions ?Recorded ?Confirmed ?Last Taken ?Type ergocalciferol (vitamin D2) 1,250 1,250 mcg PO Q14D 09/30/20 08/11/24 06/29/24 History mcg (50,000 unit) capsule hydralazine 25 mg tablet 25 mg PO BID 06/19/23 08/11/24 08/11/24 07:00 History nifedipine 30 mg tablet,extended 30 mg PO DAILY 06/19/23 08/11/24 08/11/24 07:00 History release 24 hr acetaminophen 325 mg tablet 650 mg PO Q6H PRN Pain 07/09/24 08/11/24 Unknown History (Tylenol) atorvastatin 40 mg tablet 40 mg PO BEDTIME 07/09/24 08/11/24 07/08/24 History psyllium 1 packet PO BEDTIME 07/09/24 08/11/24 07/08/24 History vit C 250 mg-vit E 90 mg-zinc 40 1 tab PO BID 07/09/24 08/11/24 07/08/24 History mg-copper 1 [id number] capsule (PreserVision AREDS-2) Exam Airway Mallampati Class: I TM Dist: >3cm Loose/Missing/Broken Teeth: Yes Assessment and Plan Assessment Anesthesia Assessment: Anesthesia Plan Discussed Final Anesthetic Review NPO: Yes ASA Class: IV Final Preanesthetic Review: No Changes in Pt Med Stat, Meds/Allgs Chart Reviewed, Consent Obtained/Reviewed, Anes Risks/Benef Reviewed and DNR Form (If Appl.) Patient Risk: High Procedure Risk: Intermediate Anesthetic Plan Anesthetic Plan: GA Disposition: Standard PACU
[2024-08-11 08:59] VITALS: BP 161/66; PULSE 72; RESP 16; TEMP 36.8; O2SAT 98
[2024-08-11 09:14] LABS: Hematocrit 29.5 % (37.0-47.0); Hemoglobin 10.1 g/dl (12.0-16.0); Mean Corpuscular HGB Conc 34.2 g/dl (31.0-35.0); Mean Corpuscular Hemoglobin 30.8 pg (27.0-33.0); Mean Corpuscular Volume 89.9 fL (80.0-98.0); Mean Platelet Volume 9.3 fL (9.4-12.3); Platelet Count 218 X10*3/uL (160-400); Red Blood Count 3.28 X10*6/uL (4.20-5.50); Red Cell Distribution Width 13.2 % (11.0-16.0); White Blood Count 6.6 X10*3/uL (4.8-10.8)
--- NOTE | 2024-08-11 11:11 | MHC.SHP ---
Pre-Procedural Eval Section A - 24 Hr Update-Section A only Date of Service: 08/11/24 Section B - Complete if H&P > 30 days Chief Complaint: stent removal from bile duct Relevant Family History (Specify if Yes): No Relevant Social History: None Present Medications: see Short Stay Collaborative assessment Medical History: Significant History (Cataract of left eye FHx: total knee replacement COVID-19 Cerebral microvascular disease Cerebral infarction Anemia Bradycardia Hypertension Aortic stenosis Biliary colic Hyperlipidemia) History of Previous Operations: Relevant previous surgery/procedure and date(s) ( History of ERCP History of cholecystectomy S/P laparoscopic cholecystectomy Hammertoe, bilateral Total knee replacement status) Allergies: Allergies Allergy/AdvReac Type Severity Reaction Status Date / Time No Known Allergies Allergy Verified 08/11/24 08:48 Review of Systems Sugical H&P ROS: Negative: Constitution, Cardiovascular, Respiratory, Neurological, Psychiatric, Hem-Onc, Allergic/Immunologic, Gastrointestinal, Genitourinary, Musculoskeletal, Integumentary, Endocrine and Eyes/Ears/Nose/Throat Exam Surgical H&P Exam: Normal: HEENT, Normal: Lungs, Normal: Extremities, Normal: Abdomen, Normal: Skin and Normal: Neurological and Significant Findings: Heart Plan Diagnosis/Plan: Unchanged I have reviewed the history and physical and performed a pertinent physical examination on my patient. No changes have occurred unless specified. stent removal and cholangiogram Time Spent With Patient Time: Total time managing care of this patient today ____ minutes.
--- NOTE | 2024-08-11 12:36 | W.PM.OPN ---
Operative Note Operative Note Date of Service: 08/11/24 Narrative: Description:?Endoscopic retrograde cholangiopancreatography (ERCP) PROCEDURE:?Endoscopic retrograde cholangiopancreatography with stent removal, stone xtraction and intra op cholangiogram INDICATION FOR THE PROCEDURE:?Patient with a history of choledocholithiasis and stent placement, here for stent removal MEDICATIONS:?General anesthesia. The risks of the procedure were made aware to the patient and consisted of medication reaction, bleeding, perforation, aspiration, and post ERCP pancreatitis. DESCRIPTION OF PROCEDURE:?After informed consent and appropriate sedation, the duodenoscope was inserted into the oropharynx, down the esophagus, and into the stomach. The scope was then advanced through the pylorus to the ampulla. The biliary stent was noted and removed with a snare. the extraction ballon was then inserted into the duct and the duct swept with sludge and 2-3 soft green yellow stones removed. A cholangiogram was performed and no filling defect noted. Bile was flowing freely FINDINGS: 1. Stent removal 2. choledocholithiasis with balloon extraction RECOMMENDATIONS: 1. clears today and advance diet as tolerated 2. can restart plavix tomorrow
[2024-08-11 12:45] VITALS: BP 137/66; PULSE 79; RESP 20; TEMP 36.4; O2SAT 97
[2024-08-11 12:50] VITALS: BP 141/63; PULSE 75; RESP 18; O2SAT 94
[2024-08-11 12:55] VITALS: BP 131/62; PULSE 70; RESP 16; TEMP 36.4; O2SAT 94
== END 2024-08-11 13:59 | disposition home or self-care (01) ==
PROVIDERS: Nurse Practitioner; PCP Internal Medicine; Visit Provider Internal Medicine Gastroenterology
PROC: (CPT 43260; principal; 2024-08-11 10:00)
DX: R10.9 Unspecified abdominal pain (principal); R79.89 Other specified abnormal findings of blood chemistry; I10 Essential (primary) hypertension; E78.5 Hyperlipidemia, unspecified; K21.9 Gastro-esophageal reflux disease without esophagitis; D64.9 Anemia, unspecified; K80.50 Calculus of bile duct without cholangitis or cholecystitis without obstruction; Z90.49 Acquired absence of other specified parts of digestive tract; Z79.02 Long term (current) use of antithrombotics/antiplatelets; Z79.899 Other long term (current) drug therapy
CPT/HCPCS: 43275; 43264; 36415; 85027; J1610; J2003; J2405; J2704; J3010; Q9967

== ENCOUNTER → 2024-08-11 08:28 | Outpatient (BNV) | payer MEDICARE, SELFPAY | PROVIDERS: PCP Internal Medicine; Visit Provider Internal Medicine Gastroenterology | DX: K80.50 Calculus of bile duct without cholangitis or cholecystitis without obstruction (principal); Z48.03 Encounter for change or removal of drains | CPT/HCPCS: 43264; 43275 ==

== ENCOUNTER 2024-08-11 22:09 | Emergency (ER) | payer MEDICARE, SELFPAY ==
--- NOTE | ~2024-08-11 | CT_ITS ---
EXAMINATION: CT ABDOMEN AND PELVIS WITH CONTRAST CLINICAL INFORMATION: Left flank pain. Status post ERCP and stent removal. COMPARISON: July 09, 2024 TECHNIQUE: Multidetector volumetric images were obtained from the superior aspect of the liver through the pubic symphysis following administration 85 mL of Omnipaque 350 intravenous contrast. Sagittal and coronal reformatted images were obtained on the technologist's workstation. Oral contrast: No This CT examination was performed using dose optimization techniques as appropriate, variously including the following: *Automated exposure control *Adjustment of mA and/or kV according to patient size (this includes techniques or standardized protocols for targeted exams where dose is matched to indication/reason for exam; i.e. extremities or head) *Use of iterative reconstruction technique DLP: 493 mGy-cm FINDINGS: LUNG BASES: The visualized lung bases are unremarkable. LIVER, GALLBLADDER, AND BILIARY TREE: The liver is normal in size, shape, and attenuation. There is intrahepatic biliary air. The common bile duct is dilated up to 1.4 cm. There has been a prior cholecystectomy. PANCREAS: Unremarkable. SPLEEN: Unremarkable. ADRENAL GLANDS: Unremarkable. KIDNEYS AND URETERS: The kidneys are normal in size, shape, and attenuation. Multiple bilateral renal cysts are noted measuring up to 4.6 cm. BLADDER: Unremarkable. GASTROINTESTINAL TRACT: There are diverticula of the transverse descending and sigmoid colon without evidence for diverticulitis. ABDOMINAL WALL: No significant hernia is appreciated. LYMPH NODES: Normal. VASCULAR: There is atherosclerotic plaque of the abdominal aorta and proximal branches. PELVIC VISCERA: Unremarkable. OSSEOUS STRUCTURES: There is diffuse thoracolumbar degenerative change with grade 1 anterolisthesis L4 over L5 and L5 over S1. CT/CT abdomen pelvis w IV con IMPRESSION: 1. Intrahepatic biliary air with dilatation of the common bile duct up to 1.4 cm. 2. Diverticulosis without evidence of diverticulitis. 3. Bilateral renal cysts. 4. Atherosclerotic plaque of the abdominal aorta and proximal branches. Fleischner guidelines were followed. Electronically signed by: Jay Cerna MD 08/12/2024 03:52 AM PIO
[2024-08-11 22:12] VITALS: BP 150/88; PULSE 109; O2SAT 94
[2024-08-11 22:23] VITALS: BP 174/71; PULSE 91; RESP 23; TEMP 36.9; O2SAT 93; BMI 27.5
[2024-08-11 22:29] VITALS: BP 176/71; PULSE 91; RESP 16; TEMP 36.9; O2SAT 93
[2024-08-11 22:51] LABS: MANUAL DIFF FLAG NO
[2024-08-11 22:52] LABS: Basophils Percent Auto 0.2 % (0-2); Eosinophils Percent Auto 0.1 % (0-4); Hematocrit 32.2 % (37.0-47.0); Hemoglobin 10.8 g/dl (12.0-16.0); Imm Gran Abs Auto 0.04 X10*3/uL (0.00-0.03); Imm Gran Pct Auto 0.5 % (0.0-0.4); Lymphocytes Absolute Auto 0.4 X10*3/uL (1.2-4.9); Lymphocytes Percent Auto 4.8 % (20-40); Mean Corpuscular HGB Conc 33.5 g/dl (31.0-35.0); Mean Corpuscular Hemoglobin 30.4 pg (27.0-33.0); Mean Corpuscular Volume 90.7 fL (80.0-98.0); Mean Platelet Volume 9.2 fL (9.4-12.3); Monocytes Absolute Auto 0.5 X10*3/uL (0.1-1.2); Monocytes Percent Auto 6.2 % (2-11); Neutrophils Absolute Auto 7.5 x10*3/uL (2.0-8.3); Neutrophils Percent Auto 88.2 % (45-73); Platelet Count 186 X10*3/uL (160-400); Red Blood Count 3.55 X10*6/uL (4.20-5.50); Red Cell Distribution Width 13.2 % (11.0-16.0); White Blood Count 8.6 X10*3/uL (4.8-10.8)
[2024-08-11 23:05] LABS: Alanine Aminotransferase 26 U/L (0-31); Albumin Level 3.7 g/dL (3.5-5.0); Alkaline Phosphatase 209 U/L (39-117); Anion Gap 16 (12-20); Aspartate Amino Transferase 45 U/L (5-31); Bilirubin Direct 0.4 mg/dL (0.0-0.5); Bilirubin Total 0.9 mg/dL (0.0-1.0); Blood Urea Nitrogen 14 mg/dL (9-16); Calcium 8.3 mg/dL (8.4-10.2); Carbon Dioxide 22 mmol/L (22-29); Chloride 107 mmol/L (96-108); Creatinine Clr Calc Pharmacy 35.9; Estimated Glomerular Filt Rate 58; Glucose Random 80 mg/dL (60-115); Lipase 9 U/L (8-78); Potassium 3.7 mmol/L (3.3-5.1); Sodium 141 mmol/L (135-145); Total Protein 6.4 g/dL (6.5-8.0)
--- NOTE | 2024-08-11 23:05 | ED_ITS ---
HPI - General Adult General Chief complaint: Nausea/Vomiting/Diarrhea Stated complaint: N/V/W after endoscopy at [facility] [place] today Time Seen by Provider: 08/11/24 23:04 Source: patient Mode of arrival: EMS Limitations: no limitations History of Present Illness ED Provider: Ninoska Puckett NP HPI narrative: Patient is an 88-year-old female who presents emergency department for evaluation. Reports that she had an endoscopy today with stent removal from her gallbladder. States she was feeling normal at the time of discharge at approximately 13:30 but did notice she had a decreased appetite. Home and fell asleep at approximately 14:30. She awoke at 18:00 severe pain to her left back that he reports feels consistent with when she had pancreatitis referring to a recent hospital admission. She reports that she has had 4 episodes bilious nonbloody emesis since waking up. He denies having abdominal pain. Has not had a bowel movement since yesterday. Denies symptoms. Denies fevers or chills. Related Data Home Medications ?Medication ?Instructions ?Recorded ?Confirmed ergocalciferol (vitamin D2) 1,250 1,250 mcg PO Q14D 09/30/20 08/11/24 mcg (50,000 unit) capsule hydralazine 25 mg tablet 25 mg PO BID 06/19/23 08/11/24 nifedipine 30 mg tablet,extended 30 mg PO DAILY 06/19/23 08/11/24 release 24 hr acetaminophen 325 mg tablet 650 mg PO Q6H PRN Pain 07/09/24 08/11/24 (Tylenol) atorvastatin 40 mg tablet 40 mg PO BEDTIME 07/09/24 08/11/24 psyllium 1 packet PO BEDTIME 07/09/24 08/11/24 vit C 250 mg-vit E 90 mg-zinc 40 1 tab PO BID 07/09/24 08/11/24 mg-copper 1 vo-tlptnd-qolvma capsule (PreserVision AREDS-2) Previous Rx's ?Medication ?Instructions ?Recorded benzonatate 200 mg capsule 200 mg PO TID PRN cough #20 caps 10/07/22 comp.stocking,knee,long,medium #2 ea 03/08/23 clopidogrel 75 mg tablet 75 mg PO DAILY 7 days #90 tabs 11/30/23 lorazepam 0.5 mg tablet 0.5 mg PO DAILY PRN Anxiety #60 09/24/24 tabs carvedilol 3.125 mg tablet 3.125 mg PO BID 90 days #180 tabs 06/14/24 pantoprazole 40 mg tablet,delayed 40 mg PO DAILY@0630 #90 tabs 06/26/24 release ursodiol 500 mg tablet 500 mg PO BID #180 tabs 07/12/24 Allergies Allergy/AdvReac Type Severity Reaction Status Date / Time No Known Allergies Allergy Verified 08/11/24 22:27 Review of Systems 2 Review of Systems: Yes all other systems are reviewed and are negative [facility] Past Medical History Attestation statement: The following information was validated with the patient. Source: old records reviewed Medical History Cataract of left eye FHx: total knee replacement COVID-19 Cerebral microvascular disease Cerebral infarction Anemia Bradycardia Hypertension Aortic stenosis Biliary colic Hyperlipidemia Surgical History History of ERCP History of cholecystectomy S/P laparoscopic cholecystectomy [place], bilateral Total knee replacement status Family History Family History Father Heart disease Mother No problems noted. Brother Heart disease Social History Social History Household Members: None Housing: House Are you a primary congregational care pastor to a significant other at home: No Do you presently have visiting nurse or other home services: Yes Unable to assess alcohol history related to: Unknown Alcohol intake: current Alcohol intake frequency: holidays/special occasions only Alcohol type: hard liquor Comment: no fluids given po Patient Tobacco Use Status: Former Tobacco user Tobacco use type: Cigarette Years Smoked: 25 Smoked in Last 30 Days: No e-Cigarette/Vaping Use: Never Used Second Hand Smoke Exposure: No Use of substances other than those prescribed or required for medical reasons: No Advance Directives: No Advance Directives Information Provided: Yes Advance Directives Date on File: 04/03/16 Do you have a plan to hurt others: No Plan service: No Current occupational status: retired Cognitive needs: Yes (walker, wheel chair, cane) Hearing needs: No Vision needs: Yes (glasses) Physical Exam ED Vital Signs: Vital Signs - 24 hr 08/11/24 22:23 08/11/24 22:29 08/12/24 00:57 Temperature 98.5 F 98.5 F 98.9 F Pulse Rate 91 91 88 Respiratory Rate 23 H 16 20 Blood Pressure 174/71 H 176/71 H 147/69 H Pulse Oximetry 93 93 88 L Oxygen Delivery Method Room Air Room Air Room Air Oxygen Flow Rate 08/12/24 01:00 Temperature Pulse Rate Respiratory Rate Blood Pressure Pulse Oximetry 96 Oxygen Delivery Method Nasal Cannula Oxygen Flow Rate 2 BMI result Body Mass Index 27.5 .Appearance: Alert.?Oriented to person, place and time. No acute distress.?Normal affect. Eyes: Pupils equal, round and reactive to light.? ENT: Pharynx normal.?? Neck: Normal inspection.? Neck supple.?? CVS: Heart sounds normal. Normal heart rate and rhythm.? Pulses normal.?? Respiratory: No respiratory distress.? Lung sounds clear to auscultation bilaterally?? Abdomen: Soft and non-tender. Normoactive bowel sounds. No pulsatile mass.? Back: lower left CVAT/paraspinal muscle tenderness?on palpation Skin: Skin warm and dry.? Normal skin color.? ?? Extremities: No lower extremity edema.? Neuro: Moves all extremities spontaneously. Sensation intact bilaterally. CN II- XII intact. No focal neuro deficits. Ambulates with normal steady gait. Course Reevaluation(s) Reevaluation #1: signed out to ED attending Dr. Ovalles pending CT abdomen and pelvis and re- evaluation Reevaluation #2: patient is feeling much better. tolerating PO I think her O2 was low as they put the probe on a finger with a bandaid - CT scan as expected post ERCP with intrahepatic biliary air but LFTs and lipase normal discussed findings with Dr. De La Vega he is aware will follow up Medications Administered Discontinued Medications Generic Name Dose Route Start Last Admin Trade Name Freq PRN Reason Stop Dose Admin Sodium Chloride 1,000 mls @ 999 mls/hr 08/11/24 23:30 08/12/24 01:07 Ns IV 08/12/24 00:30 Infused .Q1H1M MALOU Infusion Iohexol 85 ml 08/12/24 00:58 08/12/24 00:59 Iohexol 350 Mg/Ml 100 Ml Infus..Btl IV 08/12/24 00:59 85 ml ONCE ONE Administration Morphine Sulfate 2 mg 08/11/24 23:19 08/11/24 23:47 Morphine Sulfate 2 Mg/Ml Cartridge IVPUSH 08/11/24 23:20 2 mg ONCE ONE Administration Protocol Ondansetron HCl 4 mg 08/11/24 23:19 08/11/24 23:47 Ondansetron Hcl 4 Mg/2 Ml Vial IVPUSH 08/11/24 23:20 4 mg ONCE ONE Administration Medical Decision Making Medical Decision Making [facility] Narrative: Patient is an 88-year-old female with past medical history of aortic stenosis, cerebral microvascular disease, cerebral infarction, anemia, hypertension, choledocholithiasis, cholecystectomy presenting for evaluation of nausea vomiting hand back pain with onset this evening as per HPI. On review of her medical record, she was admitted 07/09/2024 and discharged 07/12/24 or choledocholithiasis, had ERCP with sphincterectomy, balloon dilation stone extraction and stent placement, symptomatic improvement with plan for outpatient follow-up For stent removal. Today She underwent ERCP with stent removal, choledocholithiasis with balloon extraction of 2-3 stone and intraoperative cholangiogram no filling defects, free flowing bile with Dr. De La Vega. Will obtain CBC to evaluate for leukocytosis/ anemia, CMP and lipase to evaluate for abnormal electrolytes /abnormal renal function/ abnormal hepatic/biliary function, CT of the abdomen and pelvis and Urinalysis. Differential Diagnosis Differential Diagnoses: The differential diagnosis associated with the presentation includes ( choledocholithiasis, biliary colic, perforation, muscular strain, hydronephrosis /renal colic, diverticulitis) Admission/Observation Consideration of admission/observation: Escalation of care including admission/observation considered Lab Data MDM Lab Attestation statement: I reviewed the patient's lab results. CBC is without leukocytosis, has a mild normocytic anemia that does not meet transfusion criteria, no thrombocytopenia. No electrolyte derangement. No GERONIMO. LFTs revealing mildly elevated AST of 45, alk-phos 209, lipase within normal range. 08/11/24 22:47 08/11/24 22:47 Labs: Lab Results 08/11/24 08/12/24 Range/Units 22:47 02:09 WBC 8.6 (4.8-10.8) X10*3/uL RBC 3.55 L (4.20-5.50) X10*6/uL Hgb 10.8 L (12.0-16.0) g/dl Hct 32.2 L (37.0-47.0) % MCV 90.7 (80.0-98.0) fL MCH 30.4 (27.0-33.0) pg MCHC 33.5 (31.0-35.0) g/dl RDW 13.2 (11.0-16.0) % Plt Count 186 (160-400) X10*3/uL MPV 9.2 L (9.4-12.3) fL Immature Gran % (Auto) 0.5 H (0.0-0.4) % Neut % (Auto) 88.2 H (45-73) % Lymph % (Auto) 4.8 L (20-40) % Darke % (Auto) 6.2 (2-11) % Eos % (Auto) 0.1 (0-4) % Baso % (Auto) 0.2 (0-2) % Lymph # (Auto) 0.4 L (1.2-4.9) X10*3/uL Darke # (Auto) 0.5 (0.1-1.2) X10*3/uL Eos # (Auto) 0.0 (0.0-0.4) X10*3/uL Baso # (Auto) 0.0 (0.0-0.2) X10*3/uL Abs Immat Gran (auto) 0.04 H (0.00-0.03) X10*3/uL Absolute Neuts (auto) 7.5 (2.0-8.3) x10*3/uL Absolute Nucleated RBC 0.000 (0.0-0.012) X10*3/uL Nucleated RBC % (auto) 0.0 (0.0-0.2) /100WBC Sodium 141 (135-145) mmol/L Potassium 3.7 (3.3-5.1) mmol/L Chloride 107 (96-108) mmol/L Carbon Dioxide 22 (22-29) mmol/L Anion Gap 16 (12-20) BUN 14 (9-16) mg/dL Creatinine 0.92 (0.5-1.4) mg/dL Estim Creat Clear Calc 35.9 Estimated GFR 58 Random Glucose 80 (60-115) mg/dL Calcium 8.3 L (8.4-10.2) mg/dL Total Bilirubin 0.9 (0.0-1.0) mg/dL Direct Bilirubin 0.4 (0.0-0.5) mg/dL AST 45 H (5-31) U/L ALT 26 (0-31) U/L Alkaline Phosphatase 209 H (39-117) U/L Total Protein 6.4 L (6.5-8.0) g/dL Albumin 3.7 (3.5-5.0) g/dL Lipase 9 (8-78) U/L Urine Color Yellow Urine Appearance Clear Urine pH 5.0 (5.0-9.0) Ur Specific [place] >= 1.030 H (1.005-1.025) Urine Protein 30 (1+) H (Neg-Trace) mg/dL Urine Glucose (UA) Negative (Negative) mg/dL Urine Ketones 40 (Negative) mg/dL Urine Blood Negative (Negative) Urine Nitrite Negative (Negative) Ur Leukocyte Esterase Negative (Negative) Urine RBC 0-2 (0-2) /HPF Urine WBC 0-5 (0-5) /HPF Ur Squamous Epith Cells 0-2 (0-2) /HPF Urine Bacteria Trace (None Seen) Hyaline Casts 0-2 (0-2) /LPF Radiology Impression Discussion of test interpretation with radiology: I have reviewed the radiologist's reading. Independent Historian Clinical information obtained from an independent historian. History obtained from or confirmed by: EMS External Record Review External record reviewed: Inpatient record and Outpatient record Critical Care Time Critical Care Time Critical Care Time: Yes Total Critical Care Time: 35 Attestation: I personally attest to this critical care time spent taking care of the patient exclusive of all other billable procedures was approximately 35 minutes including initial evaluation of patient, ordering tests, Morphine IV and re- evaluation, medical consultation, documentation, re-evaluation. Discharge Plan Discharge Clinical Impression: Acute left flank pain Patient Disposition: Home, Self-Care Instructions: Flank Pain (ED) Additional Instructions: labs reassuring CT scan as expected after ERCP but no new findings I did notify Dr. De La Vega he is aware please take it easy with fluids and food today would avoid carbonated beverages return for any worsening symptoms or concerns. CT/CT abdomen pelvis w IV con IMPRESSION: 1. Intrahepatic biliary air with dilatation of the common bile duct up to 1.4 cm. 2. Diverticulosis without evidence of diverticulitis. 3. Bilateral renal cysts. 4. Atherosclerotic plaque of the abdominal aorta and proximal branches. Prescriptions: No Action clopidogrel 75 mg tablet 75 mg PO DAILY 7 Days Qty: 90 3RF lorazepam 0.5 mg tablet 0.5 mg PO DAILY PRN (Reason: Anxiety) Qty: 60 0RF carvedilol 3.125 mg tablet 3.125 mg PO BID 90 Days Qty: 180 0RF Protocol: Hold for SBP/HR < HOLD for SBP < : 90 HOLD for HR < : 60 pantoprazole 40 mg tablet,delayed release (DR/EC) 40 mg PO DAILY@0630 Qty: 90 0RF benzonatate 200 mg capsule 200 mg PO TID PRN (Reason: cough) Qty: 20 0RF atorvastatin 40 mg tablet 40 mg PO BEDTIME acetaminophen [Tylenol] 325 mg Tablet 650 mg PO Q6H PRN (Reason: Pain) psyllium Packet 1 packet PO BEDTIME Rx Instructions: mix into at least 8 oz of water or juice before administering PreserVision AREDS-2 250-90-40-1 mg Capsule 1 tab PO BID ursodiol 500 mg tablet 500 mg PO BID Qty: 180 0RF ergocalciferol (vitamin D2) 1,250 mcg (50,000 unit) capsule 1,250 mcg PO Q14D (DME) comp.stocking,knee,long,medium Misc See Rx Instructions .Route Qty: 2 0RF Rx Instructions: As directed hydralazine 25 mg tablet 25 mg PO BID nifedipine 30 mg tablet extended release 24hr 30 mg PO DAILY Print Language: Algerian
[2024-08-11] MEDS: ondansetron HCL 4 MG/2 ML VIAL IVPUSH (23:47)
[2024-08-11] MEDS: 0.9 % Sodium Chloride 1,000 ML 999 ML IV (23:47)
[2024-08-11] MEDS: Morphine Sulfate 2 MG/ML CARTRIDGE IVPUSH (23:47)
--- NOTE | 2024-08-11 23:56 | PC.NURSE ---
pt a&o, medicated per mar, pt resting at this time, daughter at the bedside.
[2024-08-12 00:57] VITALS: BP 147/69; PULSE 88; RESP 20; TEMP 37.2; O2SAT 88
[2024-08-12] MEDS: iohexoL 350 MG/ML 100 ML INFUS..BTL 85 ML IV (00:59)
[2024-08-12 01:00] VITALS: O2SAT 96
--- NOTE | 2024-08-12 02:19 | PC.NURSE ---
pt assisted to bedside commode, ua collected sent, pure wick in.
[2024-08-12 02:20] LABS: Appearance Urine Clear; Color Urine Yellow; Glucose Urine UA Negative (Negative); Leukocyte Esterase Urine Negative (Negative); Nitrite Urine Negative (Negative); Specific Gravity - Urine >= 1.030 (1.005-1.025); UMIC TRIGGER UACC YES; Urine Blood Negative (Negative); Urine Ketones 40 mg/dL (Negative); Urine Protein 30 (1+) mg/dL (Neg-Trace)
[2024-08-12 02:25] LABS: Bacteria Urine Trace (None Seen); Hyaline Casts Urine 0-2 /LPF (0-2); RBC Urine 0-2 /HPF (0-2); Squamous Epithelial Cell Urine 0-2 /HPF (0-2); WBC Urine 0-5 /HPF (0-5)
--- NOTE | 2024-08-12 04:02 | PC.NURSE ---
Provider resting at this time. provider into discuss plan of care.
--- NOTE | 2024-08-12 04:12 | PC.NURSE ---
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
[2024-08-12 04:13] VITALS: BP 160/66; PULSE 75; RESP 16; TEMP 36.6; O2SAT 99
[2024-08-12 04:32] VITALS: BP 160/66; PULSE 73; RESP 16; TEMP 37.1; O2SAT 98
== END 2024-08-12 04:58 | disposition home or self-care (01) ==
PROVIDERS: Emergency Provider Emergency Medicine; PCP Internal Medicine
DX: R10.2 Pelvic and perineal pain (principal); R11.2 Nausea with vomiting, unspecified; Z79.899 Other long term (current) drug therapy; Z87.891 Personal history of nicotine dependence
CPT/HCPCS: 36415; 74177; 80053; 81001; 82248; 83690; 85025; 96361; 96374; 96375; 99284; 99285; J2270; J2405; Q9967

== ENCOUNTER 2024-09-22 09:49 | Outpatient (AMB) | payer MEDICARE, SELFPAY ==
--- NOTE | 2024-09-22 09:52 | MHC.PC.OV ---
Vital Signs 09/22/24 09:54 Height 5 ft Weight 136 lb 8 oz BMI 26.7 BP 120/60 Blood Pressure Location Lt brachial Position Sitting Pulse 56 Pulse Source Pulse Oximeter Pulse Oximetry (%) 98 Oxygen Delivery Method Room Air Intake Visit Reasons: 4mth f/u Intake Note: Patient is here to follow up on HTN, HLD, GERD. First Cook Required: No Ancillary Specialist: Present Accompanied by: Daughter Allergies No Known Allergies Allergy (Verified 09/22/24 09:53) Medication List - Last Reconciled 09/22/24 by Devin Hall MD acetaminophen (Tylenol) 650 mg PO Q6H PRN atorvastatin 40 mg PO BEDTIME benzonatate 200 mg PO TID PRN carvedilol 3.125 mg See Protocol PO BID 90 days clopidogrel 75 mg PO DAILY 7 days comp.stocking,knee,long,medium As directed ergocalciferol (vitamin D2) 1,250 mcg PO Q14D hydralazine 25 mg PO BID lorazepam 0.5 mg PO DAILY PRN nifedipine ER 30 mg PO DAILY pantoprazole 40 mg PO DAILY@0630 psyllium 1 packet PO BEDTIME ursodiol 500 mg PO BID vit C,W-Jh-zmntd-lutein-zeaxan 250-90-40-1 mg (PreserVision AREDS-2) 1 tab PO BID Tobacco use date assessed: 09/22/24 Fall risk assessment: No Falls in past year Last assessed Fall Risk: 09/22/24 Dental Screening Dental Screen Date: 09/22/24 Did you have a dental visit in the last 12 months?: No Did you have a dental problem in the last 6 months where you did not have access to dental care?: No Was dental information given to patient?: Patient has dentist HPI 4mth f/u HPI Details cva on rx; doing well; due for neuro eval; no residual PFSH Medical History (Updated 09/22/24 @ 10:31 by Devin Hall MD) Cataract of left eye FHx: total knee replacement COVID-19 Cerebral microvascular disease Cerebral infarction Anemia Bradycardia Hypertension Aortic stenosis Biliary colic Hyperlipidemia Surgical History (Updated 09/22/24 @ 09:57 by RICHELLE Farley) History of coronary artery stent placement History of ERCP History of cholecystectomy S/P laparoscopic cholecystectomy Hamm[place], bilateral Total knee replacement status Family History Father Heart disease Mother No problems noted. Brother Heart disease Social History Household Members: None Housing: House Are you a primary day care center director to a significant other at home: No Do you presently have visiting nurse or other home services: Yes Unable to assess alcohol history related to: Unknown Alcohol intake: current Alcohol intake frequency: holidays/special occasions only Alcohol type: hard liquor Comment: no fluids given po Patient Tobacco Use Status: Former Tobacco user Tobacco use type: Cigarette Years Smoked: 25 e-Cigarette/Vaping Use: Never Used Second Hand Smoke Exposure: Yes Advance Directives Date on File: 04/03/16 service: No Current occupational status: retired Cognitive needs: Yes (walker, wheel chair, cane) Hearing needs: No Vision needs: Yes (glasses) Questionnaire PHQ-9 Over the last 2 weeks, how often have you been bothered by any of the following problems? 1. Little interest or pleasure in doing things: not at all 2. Feeling down, depressed, or hopeless: not at all 3. Trouble falling or staying asleep, or sleeping too much: not at all 4. Feeling tired or having little energy: not at all 5. Poor appetite or overeating: not at all 6. Feeling bad about yourself - or that you are a failure or have let yourself or your family down: not at all 7. Trouble concentrating on things, such as reading the newspaper or watching television: not at all 8. Moving or speaking so slowly that other people could have noticed. Or the opposite - being so fidgety or restless that you have been moving around a lot more than usual: not at all 9. Thoughts that you would be better off or of hurting yourself in some way: not at all Total score: 0 Depression Screening Interpretation: Negative Depression Screening Done: Yes Source: Developed by Drs. Chris Madison, Felicia Zambrano, Brett Ruiz and colleagues, with an educational helga from [employer]. Thrive Questionnaire Date Thrive assessed: 09/22/24 I am a: Patient What is your living situation today?: I have a steady place to live Within the past 12 months, did the food you bought not last and you didn't have the money to get more?: Never true Within the past 12 months, did you worry whether your food would run out before you got money to buy more?: Never true Do you have trouble paying for medicines?: No Do you have trouble getting transportation to medical appointments?: No Do you have trouble paying your heating and electricity bill?: No Do you have trouble taking care of your child, family member or friend?: No Do you have trouble with day-to-day activities such as bathing, preparing meals, shopping, managing finances, etc.?: No Are you currently unemployed and looking for a job?: No Are you interested in more education?: No Please select the resources that you would like help with: None Currently or been in a relationship where the following occur: No concerns reported THRIVE Score: 0 AUDIT C Alcohol Use Questionnaire (AUDIT-C) 1. How often do you have a drink containing alcohol?: Never Total Score: 0 VY-7 AMB Questionnaire VY-7 Date VY - 7 assessed: 09/22/24 Feeling nervous, anxious, or on edge: 1 = Several days Not being able to stop or control worryin = More than half the days Worrying too much about different things: 2 = More than half the days Trouble relaxin = Not at all Being so restless that it is hard to sit still: 0 = Not at all Becoming easily annoyed or irritable: 0 = Not at all Feeling afraid as if something awful might happen: 1 = Several days Total VY-7 score (0-4 normal; 5-9 mild; 10-14 moderate; 15-21 severe): 6 Source: Developed by Drs. Chris Madison, Felicia Zambrano, Brett Ruiz and colleagues, with an educational helga from [employer]. Review of Systems Const Denies chills, Denies headache(s) and Denies weight loss ENT Denies headache(s) Card Denies chest pain, Denies syncope, Denies irregular heart rhythm and Denies dyspnea Resp Denies chest congestion, Denies cough and Denies dyspnea GI Denies abdominal pain, Denies change in stool character, Denies nausea and Denies vomiting Musc Denies deformity and Denies joint swelling Neuro Denies syncope and Denies headache(s) Physical exam (Primary Care) Vital Signs: Last Vital Signs Pulse 56 09/22/24 09:54 BP 120/60 09/22/24 09:54 Pulse Ox 98 09/22/24 09:54 Oxygen Delivery Method Room Air 09/22/24 09:54 BMI result Body Mass Index 26.7 Tobacco/Smoking Status: Tobacco use Status Tobacco use date assessed 09/22/24 09/22/24 09:55 Patient Tobacco Use Status Former Tobacco user 09/22/24 09:55 Tobacco use type Cigarette 09/22/24 09:55 e-Cigarette/Vaping Use Never Used 09/22/24 09:55 PHQ-9: PHQ-9 Score PHQ-9: Total score 0 09/22/24 10:19 Depression Screening Interpretation: Negative Thrive Assessment: Date of Thrive Assessment Date Thrive assessed 09/22/24 09/22/24 09:55 Currently or been in a relationship where the following occur: No concerns reported Const General: cooperative, comfortable, no acute distress and alert Neck Neck: Yes no lymphadenopathy Thyroid: Thyroid normal Resp Effort & Inspection: normal respiratory effort Auscultation: clear to auscultation bilaterally Percussion: percussion normal Cardio Jugular venous distension: no JVD Palpation: normal PMI Rate: regular rate Rhythm: regular rhythm Heart sounds: S1 normal heart sound present and S2 normal heart sound present GI Inspection: Yes normal to inspection Palpation (GI): No hepatosplenomegaly present Skin General skin exam: no rashes or lesions noted Extrem General: Yes no clubbing, cyanosis or edema Office Procedures Flu Questionnaire Does the patient have a severe egg allergy?: No Does the patient have severe life threatening allergies?: No Does the patient have a fever or illness today?: No Has the patient ever had Guillain-[place] Syndrome?: No Has the patient ever had any past reaction to a flu shot?: No Immunizations Fluarix Triv [id number] (PF) 45 mcg (15 mcg x 3)/0.5 mL IM syringe Performing Provider: Devin Hall MD Performing Location: [facility] Administered by: Twyla Self LPN on 09/22/24 10:18 Dose Route Admin Location Dispensed Lot Number Expiration Date [facility] [place] [facility] 0.5 mL IM Left Deltoid 0.5 mL [id number] 03/15/25 13550-051-06 [employer] VIS Given Date VIS Provided VIS Publication Date 09/22/24 Single Vaccine 21 Eligibility Eligibility Date Funding Source Not [facility] Eligible 09/22/24 Private Coding Level of Care Code Est Pt Level 3 (88464) Diagnoses Cerebrovascular insufficiency I67.81 Assessment & Plan Assessment & Plan (1) Cerebrovascular insufficiency: Code(s): I67.81 - Acute cerebrovascular insufficiency Category: Medical Plan: same rx; ref neuro Orders: Orders Influenza [id number] Immunization Today Z23 - Encounter for immunization Referrals Neurology Referral I67.81 - Acute cerebrovascular insufficiency Speech and Hearing Referral H91.90 - Unspecified hearing loss, unspecified ear
[2024-09-22 09:54] VITALS: BP 120/60; PULSE 56; O2SAT 98; BMI 26.7
--- OUTSIDE RECORDS SUMMARY | 2024-09-22 10:17 | XMS_ITS ---
Author Organization [facility] Address [address] [place] [phone] Care Team Providers Care Fudger Name Role Phone Devin Hall MD Primary Care Provider Unavaila Chris Disla Unavailable [phone] REASON FOR VISIT CANCELLED SEP 22 APPT Encounters Encounter Location Date Provider Diagnosis [facility] [address] [place] [phone] 07/14/2024 Chris Perla PLAN OF TREATMENT No Information
--- OUTSIDE RECORDS SUMMARY | 2024-09-22 10:17 | XMS_ITS | Patient Health Record ---
Author Organization [facility] Address [address] [place] [address] Care Team Providers Care Office Equipment Technician Name Role Phone Devin Hall MD Primary Care Provider Chris [facility] [phone] REASON FOR REFERRAL No Information SOCIAL HISTORY Sex Assigned At : Social History Observation Description Sex Assigned At Unknown Encounters Encounter Location Date Provider Diagnosis [facility] [address] [facility] [address] [place] [phone] 09/22/2024 Chris Perla [facility] [address] [facility] [place] [phone] 07/14/2024 Chris Perla PLAN OF TREATMENT No Information Insurance Providers Payer Name Payer Address Payer Phone Subscriber Number Group Number Insured Name Patient Relationship to Insured Coverage Start Date Coverage End Date [facility] [address] [place] [address] [id number] NOBLE LIND Self - patient is the insured
--- OUTSIDE RECORDS SUMMARY | 2024-09-22 10:17 | XMS_ITS | Clinical Summary ---
Author Organization Unknown Care Team Providers Care Gas Welder Name Role Phone DAKOTAH LUCERO, CARMEL Unavailable Unavailable PATTI RN, SUSANNA Unavailable Unavailable TATYANA MESSINA, JORDY Unavailable Unavailab le Payers Payer Name Policy Type Policy Number Effective Date Expira tion Date [facility] ADV [id number] SELF PAY MEDICARE - [facility] - [place] [id number] Problems Condition Name Condition Details Condition Category Status Onset Date Resolution Date Last Treatment Date Treating Clinician Comments COVID-19 Active 09-16 00:00: 00 HYPERTENSIVE CHRONIC KIDNEY DISEASE W STG 1-4/UNSP CHR KDNY Active 09-16 00:00: 00 CHRONIC KIDNEY DISEASE, STAGE 3 UNSPECIFIED Active 09-16 00:00: 00 ANEMIA IN CHRONIC KIDNEY DISEASE Active 09-16 00:00: 00 HYPERLIPIDEM IA, UNSPECIFIED Active 09-16 00:00: 00 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 Active 09-16 00:00: 00 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 Active 09-16 00:00: 00 CONSTIPATION , UNSPECIFIED Active 09-16 00:00: 00 UNSPECIFIED OSTEOARTHRIT IS, UNSPECIFIED SITE Active 09-16 00:00: 00 PRSNL HX OF TIA (TIA), AND CEREB INFRC W/O RESID DEFICITS Active 09-16 00:00: 00 ASSISTED (CURRENT) USE OF ASPIRIN Active 09-16 00:00: 00 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 Ordering Clinician Indication Dosage Frequency Signature (SIG) Comments Components atorvastati n 40 mg tablet 09-21 00:00: 00 Yes [id number] 1 tablet BEDTIME 1 tablet BEDTIME (route: oral) Med Classific ation: Cardiovas cular Therapy Agents carvedilol 3.125 mg tablet 09-21 00:00: 00 Yes [id number] 1 tablet TWICE DAILY 1 tablet TWICE DAILY (route: oral) Med Classific ation: Cardiovas cular Therapy Agents clopidogrel 75 mg tablet 09-21 00:00: 00 Yes [id number] 1 tablet DAILY 1 tablet DAILY (route: oral) Med Classific ation: Hematolog ical Agents hydralazine 10 mg tablet 09-21 00:00: 00 Yes [id number] 1 tablet THREE TIMES DAILY FOR 30 DAYS 1 tablet THREE TIMES DAILY FOR 30 DAYS (route: oral) Med Classific ation: Cardiovas cular Therapy Agents carvedilol 6.25 mg tablet 2021-09 00:00: 00 10-12 00:00 :00 No [id number] Per instruc tions Per instructio ns (route: oral) Med Classific ation: Cardiovas cular Therapy Agents aspirin 81 mg tablet,miguelangel yed release 10-12 00:00: 00 Yes [id number] 1 tablet DAILY 1 tablet DAILY (route: oral) Med Classific ation: Hematolog ical Agents chlorthalid one 25 mg tablet 10-12 00:00: 00 Yes [id number] .5 tablet DAILY .5 tablet DAILY (route: oral) Med Classific ation: Cardiovas cular Therapy Agents ergocalcife rol (vitamin D2) 1,250 mcg (50,000 unit) capsule 10-12 00:00: 00 Yes [id number] 1 capsule EVERY OTHER WEEK 1 capsule EVERY OTHER WEEK (route: oral) Med Classific ation: Electroly te Balance-N utritiona l Products lorazepam 0.5 mg tablet 10-12 00:00: 00 Yes [id number] 1 tablet DAILY 1 tablet DAILY (route: oral) Med Classific ation: Central Nervous System Agents nifedipine ER 90 mg tablet,exte nded release 10-12 00:00: 00 Yes [id number] 1 tablet DAILY 1 tablet DAILY (route: oral) Med Classific ation: Cardiovas cular Therapy Agents pantoprazol e 40 mg tablet,miguelangel yed release 10-12 00:00: 00 Yes [id number] 1 tablet DAILY 1 tablet DAILY (route: oral) Med Classific ation: Gastroint estinal Therapy Agents Immunizations Ordered Immunization Name Filled Immunization Name Date Status Comments Refusal Reason INFLUENZA, TIV (INACTIVATED) 2022-09-10 00:00:00 COVID-19, COVID-19 2022-07-02 00:00:00 PNEUMOCOCCAL (PPV), PPV 2020-12-05 00:00:00 SHINGLES, TIV (INACTIVATED) 2019-09-28 00:00:00 Vital Signs Vital Name Observation Time Observation Value Commen ts Temperature 2022-12-06 15:57:00.000 97 [degF] Temperature 2022-11-29 12:02:00.000 97 [degF] Temperature 2022-11-22 12:13:00.000 97.9 [degF] Temperature 2022-11-15 15:40:00.000 97.4 [degF] Temperature 2022-11-08 14:35:00.000 97.3 [degF] Temperature 2022-11-01 18:01:00.000 98.3 [degF] Temperature 2022-10-25 13:41:00.000 97.2 [degF] Temperature 2022-10-18 19:07:00.000 97.6 [degF] Temperature 2022-10-12 10:21:00.000 97.1 [degF] BMI (%) 2022-10-12 10:21:00.000 26 kg/m2 Height 2022-10-12 10:21:00.000 60 [in_us] Pulse 2022-12-06 15:57:00.000 60 /min Pulse 2022-11-29 12:02:00.000 76 /min Pulse 2022-11-22 12:13:00.000 60 /min Pulse 2022-11-15 15:40:00.000 60 /min Pulse 2022-11-08 14:35:00.000 62 /min Pulse 2022-11-01 18:01:00.000 68 /min Pulse 2022-10-25 13:41:00.000 64 /min Pulse 2022-10-18 19:07:00.000 68 /min Pulse 2022-10-12 10:21:00.000 62 /min O2 Saturation (%) 2022-12-06 15:57:00.000 97 % O2 Saturation (%) 2022-11-29 12:02:00.000 98 % O2 Saturation (%) 2022-11-22 12:13:00.000 99 % O2 Saturation (%) 2022-11-15 15:40:00.000 100 % O2 Saturation (%) 2022-11-08 14:35:00.000 100 % O2 Saturation (%) 2022-11-01 18:04:00.000 98 % O2 Saturation (%) 2022-10-25 13:41:00.000 99 % O2 Saturation (%) 2022-10-18 19:07:00.000 97 % O2 Saturation (%) 2022-10-12 10:21:00.000 98 % Respirations 2022-12-06 15:57:00.000 18 /min Respirations 2022-11-29 12:02:00.000 18 /min Respirations 2022-11-22 12:13:00.000 18 /min Respirations 2022-11-15 15:40:00.000 18 /min Respirations 2022-11-08 14:35:00.000 18 /min Respirations 2022-11-01 18:01:00.000 18 /min Respirations 2022-10-25 13:41:00.000 18 /min Respirations 2022-10-18 19:07:00.000 18 /min Respirations 2022-10-12 10:21:00.000 20 /min Weight (lbs) 2022-11-29 12:02:00.000 138 [lb_av] Weight (lbs) 2022-10-18 19:07:00.000 139.2 [lb_av] Weight (lbs) 2022-10-12 10:21:00.000 137 [lb_av] Systolic Blood Pressure 2022-12-06 15:57:00.000 126 mm [Hg] Systolic Blood Pressure 2022-11-29 12:02:00.000 138 mm [Hg] Systolic Blood Pressure 2022-11-22 12:13:00.000 155 mm [Hg] Systolic Blood Pressure 2022-11-15 15:40:00.000 128 mm [Hg] Systolic Blood Pressure 2022-11-08 14:35:00.000 122 mm [Hg] Systolic Blood Pressure 2022-11-01 18:01:00.000 130 mm [Hg] Systolic Blood Pressure 2022-10-25 13:41:00.000 128 mm [Hg] Systolic Blood Pressure 2022-10-18 19:07:00.000 124 mm [Hg] Systolic Blood Pressure 2022-10-12 10:21:00.000 122 mm [Hg] Diastolic Blood Pressure 2022-12-06 15:57:00.000 64 mm [Hg] Diastolic Blood Pressure 2022-11-29 12:02:00.000 72 mm [Hg] Diastolic Blood Pressure 2022-11-22 12:13:00.000 72 mm [Hg] Diastolic Blood Pressure 2022-11-15 15:40:00.000 62 mm [Hg] Diastolic Blood Pressure 2022-11-08 14:35:00.000 68 mm [Hg] Diastolic Blood Pressure 2022-11-01 18:01:00.000 64 mm [Hg] Diastolic Blood Pressure 2022-10-25 13:41:00.000 64 mm [Hg] Diastolic Blood Pressure 2022-10-18 19:07:00.000 64 mm [Hg] Diastolic Blood Pressure 2022-10-12 10:21:00.000 68 mm [Hg] Plan of Treatment Planned Activity Planned Date Details Comments Future Scheduled Test SKILLED NU RSE TO EVALUATE PATIENT, IDENTIFY PRIMARY AND CO-MORBID CONDITIONS CODED PER CODING GUIDELINES, AND DEVELOP PATIENT SPECIFIC PLAN OF CARE THAT INCLUDES PATIENT GOAL FOR HOME HEALTH. CLINICAL SUMMARY SOC 10/12 THE PATIENT IS [facility]CEIVING [facility] DUE TO CHRONIC DISEASE MANAGEMENT AND EDUCATION RECENT HOSPITALIZATION/INPATIENT ADMISSION RELATED TO: COVID-19 NEW OR CHANGED MEDICATIONS: STARTED ON [place] PATIENT LIVING SITUATION/CAREGIVER STATUS: LIVES ALONE RECENT FALLS: DENIES SUMMARIZE SKILLED NEED: DISEASE MANAGEMENT AND EDUCATION ADDITIONAL DISCIPLINES NEEDED OR DECLINED ORDERED SERVICES: DECLINED [code = SKILLED NURSE TO EVALUATE PATIENT, IDENTIFY PRIMARY AND CO-MORBID CONDITIONS CODED PER CODING GUIDELINES, AND DEVELOP PATIENT SPECIFIC PLAN OF CARE THAT INCLUDES PATIENT GOAL FOR HOME HEALTH. CLINICAL SUMMARY SOC 10/12 THE PATIENT IS RECEIVING [facility] DUE TO CHRONIC DISEASE MANAGEMENT AND EDUCATION RECENT HOSPITALIZATION/INPATIENT ADMISSION RELATED TO: COVID-19 NEW OR CHANGED MEDICATIONS: STARTED ON [place] PATIENT LIVING SITUATION/CAREGIVER STATUS: LIVES ALONE RECENT FALLS: DENIES SUMMARIZE SKILLED NEED: DISEASE MANAGEMENT AND EDUCATION ADDITIONAL DISCIPLINES NEEDED OR DECLINED ORDERED SERVICES: DECLINED ] Future Scheduled Test SKILLED NU RSE TO REVIEW PATIENT MEDICATIONS. INSTRUCT PATIENT/CAREGIVER ON MONITORING OF EFFECTIVENESS, ADVERSE DRUG REACTIONS, SIDE EFFECTS OF ALL MEDICATIONS (PRESCRIPTION/-OTC), AND HOW AND WHEN TO REPORT PROBLEMS. [code = SKILLED NURSE TO REVIEW PATIENT MEDICATIONS. INSTRUCT PATIENT/CAREGIVER ON MONITORING OF EFFECTIVENESS, ADVERSE DRUG REACTIONS, SIDE EFFECTS OF ALL MEDICATIONS (PRESCRIPTION/-OTC), AND HOW AND WHEN TO REPORT PROBLEMS.] Future Scheduled Test SKILLED NU RSE TO PERFORM HOME SAFETY AND FALL ASSESSMENT AND PROVIDE INSTRUCTION TO IMPLEMENT HOME SAFETY AND FALL PREVENTION STRATEGIES. [code = SKILLED NURSE TO PERFORM HOME SAFETY AND FALL ASSESSMENT AND PROVIDE INSTRUCTION TO IMPLEMENT HOME SAFETY AND FALL PREVENTION STRATEGIES.] Future Scheduled Test PATIENT ARELLANO S A RISK OF HOSPITALIZATION AND ED USE. SKILLED NURSE TO ESTABLISH SUPPORT MEASURES TO MINIMIZE RISK OF HOSPITALIZATION AND ED USE, AND INSTRUCT PATIENT/CAREGIVER ON METHODS TO REDUCE AVOIDABLE HOSPITALIZATION AND ED USE. [code = PATIENT HAS A RISK OF HOSPITALIZATION AND ED USE. SKILLED NURSE TO ESTABLISH SUPPORT MEASURES TO MINIMIZE RISK OF HOSPITALIZATION AND ED USE, AND INSTRUCT PATIENT/CAREGIVER ON METHODS TO REDUCE AVOIDABLE HOSPITALIZATION AND ED USE.] Future Scheduled Test SKILLED NU RSE TO PROVIDE INSTRUCTION TO PATIENT/CAREGIVER RELATED TO DISCHARGE PLANNING. [code = SKILLED NURSE TO PROVIDE INSTRUCTION TO PATIENT/CAREGIVER RELATED TO DISCHARGE PLANNING.] Future Scheduled Test SKILLED NU RSE FOR OBSERVATION AND ASSESSMENT OF PATIENTS PAIN LEVEL AND EFFECTIVENESS OF PAIN MANAGEMENT REGIMEN. SKILLED NURSE TO INSTRUCT PATIENT/CAREGIVER REGARDING PHARMACOLOGIC AND NON-PHARMACOLOGIC PAIN CONTROL MEASURES. SKILLED NURSE TO REPORT TO PHYSICIAN IF PAIN IS UNCONTROLLED WITH CURRENT PAIN MANAGEMENT REGIMEN. [code = SKILLED NURSE FOR OBSERVATION AND ASSESSMENT OF PATIENTS PAIN LEVEL AND EFFECTIVENESS OF PAIN MANAGEMENT REGIMEN. SKILLED NURSE TO INSTRUCT PATIENT/CAREGIVER REGARDING PHARMACOLOGIC AND NON-PHARMACOLOGIC PAIN CONTROL MEASURES. SKILLED NURSE TO REPORT TO PHYSICIAN IF PAIN IS UNCONTROLLED WITH CURRENT PAIN MANAGEMENT REGIMEN.] Future Scheduled Test SKILLED NU RSE FOR O/A, TEACHING AND MANAGEMENT OF CKD III FOR EARLY IDENTIFICATION OF EXACERBATION OF DISEASE PROCESS [code = SKILLED NURSE FOR O/A, TEACHING AND MANAGEMENT OF CKD III FOR EARLY IDENTIFICATION OF EXACERBATION OF DISEASE PROCESS] Future Scheduled Test SKILLED NU RSE FOR O/A OF RESPIRATORY SYSTEM TO IDENTIFY CHANGES ASSOCIATED WITH EXACERBATION AND TO PROVIDE SKILLED TEACHING ON MANAGEMENT OF COVID19 PROCESS. [code = SKILLED NURSE FOR O/A OF RESPIRATORY SYSTEM TO IDENTIFY CHANGES ASSOCIATED WITH EXACERBATION AND TO PROVIDE SKILLED TEACHING ON MANAGEMENT OF COVID19 PROCESS.] Future Scheduled Test SKILLED NU RSE FOR O/A TO IDENTIFY CHANGES ASSOCIATED WITH TIA AND PROVIDE INSTRUCTION RELATED TO SAFETY MEASURES TO PREVENT INJURY SECONDARY TO IMPAIRED NEUROLOGICAL STATUS. SKILLED NURSE TO REPORT SIGNIFICANT CHANGES OF NEUROLOGIC STATUS TO PHYSICIAN FOR EARLY INTERVENTION. [code = SKILLED NURSE FOR O/A TO IDENTIFY CHANGES ASSOCIATED WITH TIA AND PROVIDE INSTRUCTION RELATED TO SAFETY MEASURES TO PREVENT INJURY SECONDARY TO IMPAIRED NEUROLOGICAL STATUS. SKILLED NURSE TO REPORT SIGNIFICANT CHANGES OF NEUROLOGIC STATUS TO PHYSICIAN FOR EARLY INTERVENTION.] Future Scheduled Test SKILLED NU RSE FOR O/A AND SKILLED TEACHING IN MANAGEMENT OF NONRHEUMATIC AORTIC VALVE STENOSIS WITH INSUFFICIENCY [code = SKILLED NURSE FOR O/A AND SKILLED TEACHING IN MANAGEMENT OF NONRHEUMATIC AORTIC VALVE STENOSIS WITH INSUFFICIENCY] Future Scheduled Test SKILLED NU RSE TO ASSESS PATIENT'S SKIN INTEGRITY AND INSTRUCT PATIENT/CAREGIVER ON MEASURES TO PREVENT PRESSURE ULCERS [code = SKILLED NURSE TO ASSESS PATIENT'S SKIN INTEGRITY AND INSTRUCT PATIENT/CAREGIVER ON MEASURES TO PREVENT PRESSURE ULCERS] Future Scheduled Test SKILLED NU RSE TO PROVIDE TEACHING ON SIGNS AND SYMPTOMS AND MANAGEMENT OF HYPERTENSION. [code = SKILLED NURSE TO PROVIDE TEACHING ON SIGNS AND SYMPTOMS AND MANAGEMENT OF HYPERTENSION.] Future Scheduled Test SKILLED NU RSE TO INSTRUCT PATIENT/CAREGIVER ON WARNING SIGNS OF TIA, RISK FACTORS, AND METHODS TO MANAGE ASSISTED EFFECTS OF TIA. [code = SKILLED NURSE TO INSTRUCT PATIENT/CAREGIVER ON WARNING SIGNS OF TIA, RISK FACTORS, AND METHODS TO MANAGE ASSISTED EFFECTS OF TIA.] Future Scheduled Test SKILLED NU RSE FOR O/A AND SKILLED TEACHING RELATED TO SIGNS AND SYMPTOMS AND MANAGEMENT OF ANEMIA IN CKD. [code = SKILLED NURSE FOR O/A AND SKILLED TEACHING RELATED TO SIGNS AND SYMPTOMS AND MANAGEMENT OF ANEMIA IN CKD.] Future Scheduled Test VIRTUAL SIT FREQUENCY: 1-5 PER WEEK X 2 WEEKS, AND 5 PRN VIRTUAL VISITS MAY BE PERFORMED UTILIZING [employer] SYSTEM TO OPTIMIZE SKILLED SERVICES FURNISHED ON THE PLAN OF CARE. SKILLED NURSE TO ESTABLISH SUPPORT MEASURES TO MINIMIZE RISK OF REHOSPITALIZATION, AND INSTRUCT PATIENT/CAREGIVER ON METHODS TO REDUCE AVOIDABLE HOSPITALIZATION. [code = VIRTUAL VISIT FREQUENCY: 1-5 PER WEEK X 2 WEEKS, AND 5 PRN VIRTUAL VISITS MAY BE PERFORMED UTILIZING [employer] SYSTEM TO OPTIMIZE SKILLED SERVICES FURNISHED ON THE PLAN OF CARE. SKILLED NURSE TO ESTABLISH SUPPORT MEASURES TO MINIMIZE RISK OF REHOSPITALIZATION, AND INSTRUCT PATIENT/CAREGIVER ON METHODS TO REDUCE AVOIDABLE HOSPITALIZATION.] Future Scheduled Test SKILLED NU RSE FOR O/A, TEACHING RELATED TO CALCULUS OF GALLBLADDER AND BILE DUCT WITH ACUTE AND CHRONIC CHOLECYST, CONSTIPATION FOR EARLY IDENTIFICATION OF EXACERBATION OF DISEASE PROCESS. [code = SKILLED NURSE FOR O/A, TEACHING RELATED TO CALCULUS OF GALLBLADDER AND BILE DUCT WITH ACUTE AND CHRONIC CHOLECYST, CONSTIPATION FOR EARLY IDENTIFICATION OF EXACERBATION OF DISEASE PROCESS.] Future Scheduled Test SKILLED NU RSE FOR O/A OF MUSCULOSKELETAL STATUS AND TEACHING ON MEASURES TO MANAGE OA AND TO MAINTAIN SAFETY WITH ACTIVITY [code = SKILLED NURSE FOR O/A OF MUSCULOSKELETAL STATUS AND TEACHING ON MEASURES TO MANAGE OA AND TO MAINTAIN SAFETY WITH ACTIVITY ] Goal 2022-12-06 Patient Goal - TO STAY HOME AND HEALTHY Goal Provider Goal - A PLAN OF CARE WILL BE ESTABLISHED THAT MEETS PATIENT'S PRISON NEEDS AND INCLUDES PATIENT GOAL FOR HOME HEALTH. Goal Provider Goal - PATIENT/CAREGIVER WILL VERBALIZE UNDERSTANDING OF EDUCATION PROVIDED ON MEDICATIONS BY THE END OF THE CERTIFICATION PERIOD. Goal Provider Goal - PATIENT/CAREGIVER WILL VERBALIZE/DEMONSTRATE EFFECTIVE HOME SAFETY AND FALL PREVENTION STRATEGIES THROUGHOUT CERTIFICATION PERIOD. Goal Provider Goal - PATIENT WILL HAVE SUPPORT MEASURES ESTABLISHED TO PREVENT HOSPITALIZATION AND ED USE AND PATIENT/CAREGIVER WILL VERBALIZE/DEMONSTRATE METHODS TO REDUCE AVOIDABLE HOSPITALIZATION AND ED USE BY END OF CERT Goal Provider Goal - PATIENT/CAREGIVER WILL VERBALIZE UNDERSTANDING OF DISCHARGE PLANNING INSTRUCTIONS BY DATE OF DISCHARGE. Goal Provider Goal - PATIENT/CAREGIVER WILL DEMONSTRATE UNDERSTANDING OF PHARMACOLOGIC AND NONPHARMACOLOGIC PAIN CONTROL MEASURES AND PATIENT WILL HAVE IMPROVEMENT IN PAIN INTERFERING WITH ACTIVITY EVIDENCED BY PAIN CONTROLLED AT LEVEL OF 7 OR LESS BY END OF CERTIFICATION PERIOD. Goal Provider Goal - PATIENT/CAREGIVER WILL VERBALIZE UNDERSTANDING OF GENITOURINARY DISEASE PROCESS, AND EXACERBATIONS OF GENITOURINARY DISEASE WILL BE PROMPTLY IDENTIFIED FOR EARLY INTERVENTION THROUGHOUT THE CERTIFICATION PERIOD. Goal Provider Goal - PATIENT/CAREGIVER WILL VERBALIZE/DEMONSTRATE MANAGEMENT OF RESPIRATORY DISEASE PROCESS. CHANGES IN RESPIRATORY STATUS WILL BE IDENTIFIED AND REPORTED TO PHYSICIAN FOR PROMPT INTERVENTION THROUGHOUT THE CERTIFICATION PERIOD. Goal Provider Goal - CHANGES IN NEUROLOGIC STATUS WILL BE IDENTIFIED AND REPORTED TO THE PHYSICIAN FOR PROMPT INTERVENTION OF ASSOCIATED RISK. PATIENT/CAREGIVER WILL VERBALIZE/DEMONSTRATE APPROPRIATE SAFETY MEASURES TO PREVENT INJURY BY THE END OF THE CERTIFICATION PERIOD. Goal Provider Goal - PATIENT/CARGIVER WILL VERBALIZE/DEMONSTRATE THE ABILITY TO MANAGE CIRCULATORY DISEASE PROCESS AND EXACERBATIONS WILL BE IDENTIFIED FOR EARLY INTERVENTION THROUGHOUT THE CERTIFICATION PERIOD. Goal Provider Goal - PATIENT/CAREGIVER WILL VERBALIZE UNDERSTANDING OF PRESSURE ULCER PREVENTION BY THE END OF THE EPISODE. Goal Provider Goal - PATIENT/CAREGIVER WILL VERBALIZE SIGNS AND SYMPTOMS OF HYPERTENSION AND WILL BE ABLE TO DEMONSTRATE ABILITY TO MANAGE EXACERBATION BY END OF CERT PERIOD Goal Provider Goal - PATIENT/CAREGIVER WILL DEMONSTRATE COMPLIANCE WITH TREATMENT REGIME AND VERBALIZE SIGNS AND SYMPTOMS TO REPORT WELL POSSIBLE COMPLICATIONS OF TIA BY THE END OF THE EPISODE. Goal Provider Goal - PATIENT/CARGIVER WILL VERBALIZE UNDERSTANDING OF ANEMIA INCLUDING SIGNS AND SYMPTOMS, MANAGEMENT OF COMPLICATIONS, AND PRESCRIBED TREATMENT REGIMEN BY END OF EPISODE. Goal Provider Goal - PATIENT/CAREGIVER WILL UTILIZE VIRTUAL VISITS TO ACHIEVE GOALS OUTLINED ON THE PLAN OF CARE. PATIENT WILL HAVE SUPPORT MEASURES ESTABLISHED TO PREVENT HOSPITALIZATION AND PATIENT/CAREGIVER WILL VERBALIZE/DEMONSTRATE METHODS TO REDUCE AVOIDABLE HOSPITALIZATION THROUGHOUT THE CERTIFICATION PERIOD. Goal Provider Goal - EXACERBATIONS OF GASTROINTESTINAL DISEASE WILL BE PROMPTLY IDENTIFIED AND INTERVENTIONS IMPLEMENTED TO MINIMIZE RISKS TO PATIENT BY END OF EPISODE Goal Provider Goal - CHANGES IN MUSCULOSKETAL STATUS WILL BE IDENTIFIED AND REPORTED TO PHYSICIAN TO MINIMIZE ASSOCIATED RISKS THROUGHOUT THE CERTIFICATION PERIOD. Reason for Visit INDEPENDENT IN THE HOME Encounters Start Date/Time End Date/Time Encounter Type Admission Type Attending [facility] Care Department Encounter ID Discharge Date Discharge Status Discharge Condition Discharge Reason Percent Goals Met 2022-10-12 00:00:00 2022-12-06 00:00:00 Outpatient NEW ADMISSION SUSANNA [facility]STR[facility] [id number] 00:00:00 DISCHARGE TO HOME OR SELF CARE INDEPENDEN T IN THE HOME GOALS MET ( ONLY) 100.00
--- OUTSIDE RECORDS SUMMARY | 2024-09-22 10:17 | XMS_ITS ---
Author Organization [facility] Address [address] [place] [id number] Care Team Providers Care Machine Designer Name Role Phone Devin Hall MD Primary Care Provider Unavaila Chris Disla Unavailable [phone] REASON FOR VISIT heartburn Encounters Encounter Location Date Provider Diagnosis [facility] [address] [place] [address] 09/22/2024 Chris Perla PLAN OF TREATMENT No Information
== END 2024-09-22 10:19 | disposition home or self-care (01) ==
PROVIDERS: PCP Internal Medicine; Visit Provider Internal Medicine
DX: Z23 Encounter for immunization (principal); I67.81 Acute cerebrovascular insufficiency

== ENCOUNTER → 2024-09-22 09:49 | Outpatient (BNVA) | payer MEDICARE, SELFPAY | PROVIDERS: PCP Internal Medicine; Visit Provider Internal Medicine | DX: Z23 Encounter for immunization (principal); I67.81 Acute cerebrovascular insufficiency | CPT/HCPCS: 90471; 90656; 96127; 99212 ==

== ENCOUNTER 2024-10-06 09:08 | Outpatient (REF) | payer MEDICARE, SELFPAY | END 2024-10-06 09:09 | disposition home or self-care (01) | LOC: HO.SH 09:08 | PROVIDERS: Visit Provider Internal Medicine | DX: Z01.118 Encounter for examination of ears and hearing with other abnormal findings (principal); H90.3 Sensorineural hearing loss, bilateral | CPT/HCPCS: 92557 ==

== ENCOUNTER 2024-12-17 13:20 | Outpatient (AMB) | payer MEDICARE, SELFPAY ==
--- NOTE | 2024-12-17 13:23 | MHC.OFFVIS ---
Vital Signs 12/17/24 13:24 Height 5 ft Weight 137 lb 9.095 oz BMI 26.9 BP 126/66 Blood Pressure Location Lt brachial Position Sitting Pulse 55 Pulse Source Pulse Oximeter Intake Visit Reasons: 6 mth f/up echo Aircraft Instrument Mechanic Required: No Seismic Interpreter: Seismic Interpreter Present Allergies No Known Allergies Allergy (Verified 12/17/24 13:26) Medication List - Last Reconciled 12/17/24 by Sloane Sandra, JAMES-C acetaminophen (Tylenol) 650 mg PO Q6H PRN atorvastatin 40 mg PO BEDTIME benzonatate 200 mg PO TID PRN carvedilol 3.125 mg See Protocol PO BID 90 days clopidogrel 75 mg PO DAILY 7 days comp.stocking,knee,long,medium As directed ergocalciferol (vitamin D2) 1,250 mcg PO Q14D hydralazine 25 mg PO BID lorazepam 0.5 mg PO DAILY PRN nifedipine ER 30 mg PO DAILY pantoprazole 40 mg PO DAILY@0630 psyllium 1 packet PO BEDTIME ursodiol 500 mg PO BID vit C,S-Xz-lvoqn-lutein-zeaxan 250-90-40-1 mg (PreserVision AREDS-2) 1 tab PO BID HPI HPI 6 mth f/up echo: Details: Nickie is an 88-year-old female past medical history of hypertension, hyperlipidemia, aortic stenosis, leg edema who presents for follow-up. Today she she reports that she is currently feeling well. Since her last visit she has had issues with pancreatitis and tells me she had her gallbladder out. She had no known cardiac complications. No chest discomfort at rest or with activity. No heart palpitations, presyncope, syncope. She has had some lightheadedness with position changes. No shortness of breath, PND, orthopnea or edema. Her daughter is present tells me she has not been eating well. She tells me she does main thing good hydration but is just not hungry. Her prior epigastric discomfort has fully resolved. She has been taking her meds as directed. [facility] Medical History Cataract of left eye FHx: total knee replacement COVID-19 Cerebral microvascular disease Cerebral infarction Anemia Bradycardia Hypertension Aortic stenosis Biliary colic Hyperlipidemia Surgical History History of coronary artery stent placement History of ERCP History of cholecystectomy S/P laparoscopic cholecystectomy [place], bilateral Total knee replacement status Family History Father Heart disease Mother No problems noted. Brother Heart disease Social History Household Members: None Housing: House Are you a primary career placement services counselor to a significant other at home: No Do you presently have visiting nurse or other home services: Yes Unable to assess alcohol history related to: Unknown Alcohol intake: current Alcohol intake frequency: holidays/special occasions only Alcohol type: hard liquor Comment: no fluids given po Patient Tobacco Use Status: Former Tobacco user Tobacco use type: Cigarette Years Smoked: 25 e-Cigarette/Vaping Use: Never Used Second Hand Smoke Exposure: Yes Advance Directives Date on File: 04/03/16 service: No Current occupational status: retired Cognitive needs: Yes (walker, wheel chair, cane) Hearing needs: No Vision needs: Yes (glasses) Review of Systems Const All systems reviewed & are unremarkable except as noted in HPI and below ENT Reports dizziness Card Denies chest pain, Denies chest pain at rest, Denies chest pain with activity, Denies rapid heart rate, Denies pedal edema, Denies edema, Denies leg edema, Denies lightheadedness, Denies palpitations, Denies dyspnea, Denies dyspnea on exertion and Denies orthopnea Resp Denies cough, Denies dyspnea and Denies dyspnea on exertion GI Denies hematochezia and Denies change in stool character Musc Denies abnormal gait, Denies limited range of motion, Denies muscle cramps, Denies muscle weakness, Denies numbness, Denies radiating pain into limb, Denies stiffness and Denies tingling Neuro Denies abnormal gait, Reports dizziness, Denies numbness and Denies tingling Endo Denies palpitations Physical Exam Vital Signs: Last Vital Signs Pulse 50 12/17/24 13:24 BP 126/66 12/17/24 13:24 BMI result Body Mass Index 26.9 Const General: healthy appearing, comfortable and no acute distress Orientation/consciousness: patient oriented x3 Neck Neck: Yes normal visual inspection and Yes no JVD Resp Effort & Inspection: normal respiratory effort Auscultation: clear to auscultation bilaterally, no crackles, no rales, no rhonchi and no wheezes Cardio Jugular venous distension: no JVD Rate: regular rate Rhythm: regular rhythm Heart sounds: S2 normal heart sound present, Murmur heart sound present (2/6 systolic) and no rubs Neuro General: patient oriented x3 Extrem General: Yes normal to inspection, No no pedal edema and No calf tenderness Psych Appearance: grossly normal Mental Status: mental status grossly normal Speech and movement: Normal speech and movement present Office Procedures EKG Details: Today, read by me, sinus bradycardia with PAC, rate 55, QTC 394 millisecond [id number], Complete Assessment & Plan Assessment & Plan (1) Hypertension: Code(s): I10 - Essential (primary) hypertension Category: Medical Plan: History of hypertension that is well controlled at this time. She does report having issues with anxiety at office visits however today she took an antianxiety medication prior to arrival. Will continue on current meds including nifedipine, carvedilol and hydralazine. Reviewed low-salt intake. (2) Hyperlipidemia: Code(s): E78.5 - Hyperlipidemia, unspecified Category: Medical Plan: [place] LDL goal less than 100. Labs done 05/19/2024 showed LDL 62. Continue atorvastatin 40 mg daily which she does tolerate well. (3) Aortic stenosis: Code(s): I35.0 - Nonrheumatic aortic (valve) stenosis Category: Medical Plan: History of aortic stenosis. Last echocardiogram 07/28/2024 shows EF greater than 70%, mild aortic stenosis and aortic regurgitation. Will continue to follow with periodic echoes. (4) Dizziness: Code(s): R42 - Dizziness and giddiness Category: Medical Plan: Reports of mild dizziness at times with position changes. Blood pressure currently normal range. Reminded to maintain good hydration and to eat meals regularly. Her EKG today does show sinus bradycardia, rate 55. Will hold off on making med changes at this time. If she does have issues with more significant bradycardia the carvedilol can be changed to an alternate antihypertensive agent. Or if blood pressures are running low it can be stopped. Plan Time spent on chart review, documentation, interview, assessment. Coding Level of Care Code Est Pt Level 4 (66485) Complex EM visit Add On G2211 Diagnoses Hypertension I10 Hyperlipidemia E78.5 Aortic stenosis I35.0 Dizziness R42 CPT Codes EKG - CPT: 23171-[id number], Complete ([id number]) Time Spent (min) 28
[2024-12-17 13:24] VITALS: BP 126/66; PULSE 55; BMI 26.9
--- OUTSIDE RECORDS SUMMARY | 2024-12-17 14:34 | XMS_ITS | Encounter Summary ---
Author Organization [facility] Address [address] [facility] [address] [place] [address] Phone Care Team Providers Care Sharepoint Trainer Name Role Phone Devin Hall MD Primary Care Provider [phone] Reason for Visit * Reason Comments Med Refill Encounter Details Date Type Department Care Team (Late st Contact Info) Description 01/14/2022 Refill [facility] [address] [facility] [address] [place] [address] Alphonso Espinoza MD Social History Tobacco Use Types Packs/Day Years Used Date Smoking Tobacco: Former Alcohol Use Standard Drinks/Week Comments Yes 0 (1 standard drink = 0.6 oz pure alcohol) Alcoholic Drinks/day: Occasional social drink Comments Unknown Sex and Gender Information Value Date Recorded Sex Assigned at Not on file Legal Sex Female 4:48 PM EST Gender Identity Not on file Sexual Orientation Not on file documented as of this encounter Plan of Treatment Upcoming Encounters Date Type Department Care Team (Late st Contact Info) Description 02/16/2025 2:00 PM EDT Office Visit [facility] [address] [phone] Ruiz Blackwell MD [address] [facility] [address] [place] [phone] documented as of this encounter Visit Diagnoses Not on filedocumented in this encounter Care Teams Sharepoint Trainer Relationship Specialty Start Date End Date Devin Hall MD [address] [place] PCP - General 09/26/20 documented as of this encounter
--- OUTSIDE RECORDS SUMMARY | 2024-12-17 14:34 | XMS_ITS | Encounter Summary ---
Author Organization [facility] Address [address] [facility] [address] [address] [facility] [address] [place] [address] Phone Care Team Providers Care Director University Name Role Phone Devin Hall MD Primary Care Provider [phone] Reason for Visit * Reason Comments Med Refill Encounter Details Date Type Department Care Team (Late st Contact Info) Description 02/26/2022 Refill [facility] [address] [facility] [address] [place] [address] Alphonso Espinoza MD Social History [...] on file documented as of this encounter Miscellaneous Notes * Telephone Encounter - Ruiz Blackwell MD - 03/02/2022 1:10 AM EDT Order sent and pharamcy called * Telephone Encounter - Kathy Trujillo - 03/01/2022 9:59 AM EDT Pt called and states she needs a refill on [facility]ilol [facility] [place] documented in this encounter Plan of Treatment Upcoming Encounters Date Type Department Care Team (Late st Contact Info) Description 02/16/2025 2:00 PM EDT Office Visit [facility] [address] [phone] Ruiz Blackwell MD [address] [phone] documented as of this encounter Visit Diagnoses Not on filedocumented in this encounter Care Teams Director University Relationship Specialty Start Date End Date Devin Hall MD [address] [place], [place] PCP - General 09/26/20 documented as of this encounter
--- OUTSIDE RECORDS SUMMARY | 2024-12-17 14:34 | XMS_ITS ---
Author Organization [facility] Address [address] [place] [phone] Care Team Providers Care Video Machines Mechanic Name Role Phone Rafael LUCERO, Devin Primary Care Provider [place] Chris Disla [phone] REASON FOR VISIT CANCELLED SEP 22 APPT Encounters Encounter Location Date Provider Diagnosis [facility] [address] [place] [phone] 07/14/2024 Chris Perla Plan Of Treatment No Information Progress Notes * LELO, NOBLE EDOB:[birth year] (88 yo F)Acc No.[id number]:07/14/2024 Patient:?NOBLE LIND :1935???Age:88 Y???Sex:Female Address:[address] [place] [address], [address] * true * Date:? Generated for Cristofer barbour/Arthur/eTransmitting on:?12/17/2024 02:34 PM EDT
--- OUTSIDE RECORDS SUMMARY | 2024-12-17 14:34 | XMS_ITS | Patient Health Record ---
Author Organization [facility] Address [address] [facility] [address] [place] [address] Care Team Providers Care Travel Consultant Name Role Phone Devin Hall MD Primary Care Provider Chris Perry [phone] Reason For Referral No Information Encounters Encounter Location Date Provider Diagnosis [facility] [address] [place] [address] 07/14/2024 Chris Perla Plan Of Treatment No Information Insurance Providers Payer Name Payer Address Payer Phone Subscriber Number Group Number Insured Name Patient Relationship to Insured Coverage Start Date Coverage End Date [facility] [address] [place] [address] [phone] [id number] NOBLE LIND Self - patient is the insured
--- OUTSIDE RECORDS SUMMARY | 2024-12-17 14:34 | XMS_ITS ---
Author Organization [facility] Address [address] [place] [phone] Care Team Providers Care Edge Runner Name Role Phone Rafael LUCERO, Devin Primary Care Provider Gersona Chris Disla [phone] REASON FOR VISIT heartburn Encounters Encounter Location Date Provider Diagnosis [facility] [address] [place] [phone] 09/22/2024 Chris Perla Plan Of Treatment No Information Progress Notes * NOBLE LIND EDOB:[birth year] (88 yo F)Acc No.[id number]:09/22/2024 Progress Notes Patient:?NOBLE LIND Provider:?Chris Perla MD :1935???Age:88 Y???Sex:Female D ate:09/22/2024 Address:[address] [place], [place] [phone] Pcp:Devin Hall MD Subjective: * Chief Complaints: * ???1. Heartburn. * Medical History:? Objective: * Vitals:? Assessment: Plan: * Treatment: * * The named appointment provid er may or may not be the originator of this progress note, and it is not deemed complete until electronically signed by the appointment provider. Sign off status: Pending * Provider:?Chris Perla MD Date:? 025 Generated for Cristofer barbour/Arthur/eTransmitting on:?12/17/2024 02:34 PM EDT
--- OUTSIDE RECORDS SUMMARY | 2024-12-17 14:34 | XMS_ITS | Clinical Summary ---
Author Organization [facility] Address [address] [phone] Phone Care Team Providers Care Orthodontic Technician Assistant Name Role Phone Devin Hall MD Primary Care Provider Allergies No known active allergies Medications pantoprazole (PROTONIX) 40 MG EC tablet Take 1 tablet by mouth 1 (one) time each day Active carvedilol (COREG) 6.25 MG tablet Take 1 tablet (6.25 mg total) by mouth in the morning and 1 tablet (6.25 mg total) in the evening. Take with meals. 90 tablet 3 2 Active Additional Information Patient not taking.Reported on 08/19/2024 NIFEdipine XL (PROCARDIA XL) 90 MG 24 hr tabletIndicatio ns:Stage 3a chronic kidney disease (HCC) Take 1 tablet (90 mg total) by mouth 1 (one) time each day Do not crush, chew, or split. 90 tablet 2 Active clopidogrel (PLAVIX) 75 MG tablet Take 75 mg by mouth 1 (one) time each day Active atorvastatin (LIPITOR) 40 MG tablet Take 40 mg by mouth 1 (one) time each day Active ergocalciferol 1.25 MG (01455 UT) capsuleIndicati ons:Renal osteodystrophy, Stage 3b chronic kidney disease (HCC),Hypertens brit chronic kidney disease TAKE 1 CAPSULE BY MOUTH EVERY 14 DAYS 1 capsule 4 Active chlorthalidone 25 MG tablet Take 0.5 tablets (12.5 mg total) by mouth 3 times weekly: Sat and Saturday morning 45 tablet 4 Active NIFEdipine XL (PROCARDIA XL) 30 MG 24 hr tablet TAKE 1 TABLET BY MOUTH ONCE DAILY. 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 01/31/2022 Stage 3b chronic kidney disease 12/02/2020 Renal osteodystrophy 12/02/2020 Hypertensive chronic kidney disease 12/02/2020 Chronic kidney disease stage 3 12/01/2020 Hyperparathyroidism due to renal insufficiency 0 12/01/2020 Hypertensive renal disease 12/01/2020 Encounters Date Type Department Care Team Description 10/30/2024 Refill [facility] [address] [place] [phone] Ruiz Blackwell MD from Last 3 Months Immunizations Name Administration Dates Next Due Pneumococcal Polysaccharide 07/06/2011 Family History Medical History Relation Comments Heart disease Mother Hypertension Mother Relation Status Comments Father Mother Social History Tobacco Use Types Packs/Day Years Used Date Smoking Tobacco: Former Alcohol Use Standard Drinks/Week Comments Yes 0 (1 standard drink = 0.6 oz pure alcohol) Alcoholic Drinks/day: Occasional social drink Comments Unknown Sex and Gender Information Value Date Recorded Sex Assigned at Not on file Legal Sex Female 4:48 PM EST Gender Identity Not on file Sexual Orientation Not on file Last Filed Vital Signs Vital Sign Reading Time Taken Comments Blood Pressure 120/60 08/19/2024 10:07 AM EST Pulse 57 08/19/2024 10:07 AM EST Temperature - - Respiratory Rate - - Oxygen Saturation 99% 08/19/2024 10: 07 AM EST Inhaled Oxygen Concentration - - Weight 61.6 kg (135 lb 12.8 oz) 024 10:07 AM EST Height 157.5 cm (5' 2 ) 05/08/2019 12:0 0 PM EDT Body Mass Index 24.84 05/08/2019 12:00 PM EDT Plan of Treatment Upcoming Encounters Date Type Department Care Team (Late st Contact Info) Description 02/16/2025 2:00 PM EDT Office Visit [facility] [address] [place] [phone] Ruiz Blackwell MD [address] [phone] Health Maintenance Due Date Last Done Comments Pneumococcal Vaccine: 65+ Ye ars (2 of 2 - PCV) 07/06/2012 07/06/2011 Diabetes: Hemoglobin A1C 01/31/2022 Diabetes: Ophthalmology Exam 01/31/2022 Diabetes: Pedal Pulse Checked 01/31/2022 Diabetes: Sensory Foot Exam 01/31/2022 Diabetes: Visual Foot Exam 01/31/2022 Influenza Vaccine (#1) 2024 Hepatitis B Vaccine Aged Out No longe r eligible based on patient's age to complete this topic Insurance [facility] Care Teams Orthodontic Technician Assistant Relationship Specialty Start Date End Date Devin Hall MD [address] [place] PCP - General 09/26/20
== END 2024-12-17 13:58 | disposition home or self-care (01) ==
LOC: HO.HCS 13:21
PROVIDERS: PCP Internal Medicine; Visit Provider Nurse Practitioner Family
DX: I10 Essential (primary) hypertension (principal); E78.5 Hyperlipidemia, unspecified; I35.0 Nonrheumatic aortic (valve) stenosis; R42 Dizziness and giddiness
CPT/HCPCS: 93010; 99214; G2211

== ENCOUNTER → 2024-12-17 13:20 | Outpatient (BNVA) | payer MEDICARE, SELFPAY | PROVIDERS: PCP Internal Medicine; Visit Provider Nurse Practitioner Family | DX: I10 Essential (primary) hypertension (principal); I35.0 Nonrheumatic aortic (valve) stenosis; E78.5 Hyperlipidemia, unspecified; R42 Dizziness and giddiness | CPT/HCPCS: 93005; 99212 ==

== ENCOUNTER 2025-01-26 12:21 | Outpatient (AMB) | payer MEDICARE, SELFPAY ==
--- NOTE | 2025-01-26 12:23 | A.OFFPC_ITS ---
Vital Signs 01/26/25 12:24 Height 5 ft Weight 135 lb BMI 26.4 BP 142/70 H Blood Pressure Location Lt brachial Position Sitting Intake Visit Reasons: TEGAN Dr Hall Supervisor Seaming Required: No Accompanied by: Daughter Allergies No Known Allergies Allergy (Verified 01/26/25 12:37) Medication List - Last Reconciled 01/26/25 by Martine Ambrosio MD acetaminophen (Tylenol) 650 mg PO Q6H PRN atorvastatin 40 mg PO BEDTIME carvedilol 3.125 mg See Protocol PO BID 90 days clopidogrel 75 mg PO DAILY 7 days comp.stocking,knee,long,medium As directed ergocalciferol (vitamin D2) 1,250 mcg PO Q14D hydralazine 25 mg PO BID lorazepam 0.5 mg PO DAILY PRN nifedipine ER 30 mg PO DAILY pantoprazole 40 mg PO DAILY@0630 psyllium 1 packet PO BEDTIME ursodiol 500 mg PO BID vit C,Y-Jm-jljvs-lutein-zeaxan 250-90-40-1 mg (PreserVision AREDS-2) 1 tab PO BID Tobacco use date assessed: 09/22/24 Fall risk assessment: No Falls in past year Last assessed Fall Risk: 01/26/25 Dental Screening Dental Screen Date: 09/22/24 HPI HPI Comments History of Present Illness Details The patient is an 89-year-old female presenting with dizziness for medication management follow-up. She reports dizziness attributed to Carvedilol and mentions regular follow-ups with her flight service agent for non-alteration unless symptoms persist. The blood pressure readings show mild elevation in clinical settings, attributed to anxiety, with a history of readings between 130-135 mmHg typically. Currently managed with Carvedilol and Hydralazine, she denies any medication allergies. The patient pursues a medication regimen due to essential hypertension, hyperlipidemia, and other medical conditions, including Pantoprazole for GERD and Psyllium for constipation. She recounts an instance of mild anemia post a pancreatitis episode in the preceding year without further noted decline. The patient recalls past surgical history with gallbladder and kidney stone procedures and no current significant illness except for a history of COVID-19 and remote smoking cessation over four decades past. Socially, she engages minimally with alcohol and maintains her health follow-up diligently through cardiology and primary care. [facility] Medical History (Updated 01/26/25 @ 14:07 by Martine Ambrosio MD) Cataract of left eye FHx: total knee replacement COVID-19 Cerebral microvascular disease Cerebral infarction Anemia Bradycardia Hypertension Aortic stenosis Biliary colic Hyperlipidemia Surgical History History of coronary artery stent placement History of ERCP History of cholecystectomy S/P laparoscopic cholecystectomy [place], bilateral Total knee replacement status Family History Father Heart disease Mother No problems noted. Brother Heart disease Social History Household Members: None Housing: House Are you a primary rn care transition to a significant other at home: No Do you presently have visiting nurse or other home services: Yes Unable to assess alcohol history related to: Unknown Alcohol intake: current Alcohol intake frequency: holidays/special occasions only Alcohol type: hard liquor Comment: no fluids given po Patient Tobacco Use Status: Former Tobacco user Tobacco use type: Cigarette Years Smoked: 25 e-Cigarette/Vaping Use: Never Used Second Hand Smoke Exposure: Yes Advance Directives Date on File: 04/03/16 service: No Current occupational status: retired Cognitive needs: Yes (walker, wheel chair, cane) Hearing needs: No Vision needs: Yes (glasses) Questionnaire PHQ-9 Over the last 2 weeks, how often have you been bothered by any of the following problems? 1. Little interest or pleasure in doing things: not at all 2. Feeling down, depressed, or hopeless: not at all 3. Trouble falling or staying asleep, or sleeping too much: not at all 4. Feeling tired or having little energy: not at all 5. Poor appetite or overeating: not at all 6. Feeling bad about yourself - or that you are a failure or have let yourself or your family down: not at all 7. Trouble concentrating on things, such as reading the newspaper or watching television: not at all 8. Moving or speaking so slowly that other people could have noticed. Or the opposite - being so fidgety or restless that you have been moving around a lot more than usual: not at all 9. Thoughts that you would be better off or of hurting yourself in some way: not at all Total score: 0 Depression Screening Interpretation: Negative Depression Screening Done: Yes 86687 - PHQ-9 Billing: Yes Source: Developed by Drs. Chris Madison, Felicia Zambrano, Brett Ruiz and colleagues, with an educational helga from [employer]. Thrive Questionnaire Date Thrive assessed: 01/26/25 I am a: Parent/Caregiver What is your living situation today?: I have a steady place to live Within the past 12 months, did the food you bought not last and you didn't have the money to get more?: Never true Within the past 12 months, did you worry whether your food would run out before you got money to buy more?: Never true Do you have trouble paying for medicines?: No Do you have trouble getting transportation to medical appointments?: No Do you have trouble paying your heating and electricity bill?: No Do you have trouble taking care of your child, family member or friend?: No Do you have trouble with day-to-day activities such as bathing, preparing meals, shopping, managing finances, etc.?: No Are you currently unemployed and looking for a job?: No Are you interested in more education?: No Please select the resources that you would like help with: None Currently or been in a relationship where the following occur: No concerns reported THRIVE Score: 0 AUDIT C Alcohol Use Questionnaire (AUDIT-C) 1. How often do you have a drink containing alcohol?: Never Total Score: 0 VY-7 AMB Questionnaire VY-7 Date VY - 7 assessed: 01/26/25 Feeling nervous, anxious, or on edge: 0 = Not at all Not being able to stop or control worryin = Not at all Worrying too much about different things: 0 = Not at all Trouble relaxin = Not at all Being so restless that it is hard to sit still: 0 = Not at all Becoming easily annoyed or irritable: 0 = Not at all Feeling afraid as if something awful might happen: 0 = Not at all Total VY-7 score (0-4 normal; 5-9 mild; 10-14 moderate; 15-21 severe): 0 Source: Developed by Felicia Lane.W. Juan Manuel, Brett Ruiz and colleagues, with an educational helga from [employer]. VY-7 Assessment Billing VY-7 Assessment Tool: VY-7 Assessment 01824 Review of Systems Const All systems reviewed & are unremarkable except as noted in HPI and below Card Denies chest pain at rest, Denies chest pain with activity, Denies edema, Denies irregular heart rhythm, Denies claudication, Denies dyspnea, Denies dyspnea on exertion, Denies orthopnea, Denies paroxysmal nocturnal dyspnea and Denies slow heart rate Resp Denies cough, Denies dyspnea and Denies dyspnea on exertion Physical exam (Primary Care) Vital Signs: Last Vital Signs BP 142/70 H 01/26/25 12:24 BMI result Body Mass Index 26.4 Tobacco/Smoking Status: Tobacco use Status Tobacco use date assessed 09/22/24 01/26/25 12:31 Patient Tobacco Use Status Former Tobacco user 01/26/25 12:31 Tobacco use type Cigarette 01/26/25 12:31 e-Cigarette/Vaping Use Never Used 01/26/25 12:31 PHQ-9: PHQ-9 Score PHQ-9: Total score 0 01/26/25 12:39 Depression Screening Interpretation: Negative Thrive Assessment: Date of Thrive Assessment Date Thrive assessed 01/26/25 01/26/25 12:31 Currently or been in a relationship where the following occur: No concerns reported Const Limitations: ambulation with cane Resp Effort & Inspection: normal respiratory effort Auscultation: clear to auscultation bilaterally Cardio Jugular venous distension: no JVD Rate: regular rate Rhythm: regular rhythm Heart sounds: S1 normal heart sound present and S2 normal heart sound present Extrem General: Yes full ROM Coding Level of Care Code Est Pt Level 4 (02500) Complex EM visit Add On G2211 Diagnoses Dizziness R42 Hypertension I10 Hyperlipidemia E78.5 Chronic GERD K21.9 Aortic stenosis I35.0 Anemia D64.9 Additional Codes VY-7 Assessment Billing - VY-7 Assessment Tool: VY-7 Assessment 02112 ([id number]) PHQ-9 - 49625 - PHQ-9 Billing: Yes ([id number]) Time Spent (min) 23 Assessment & Plan Assessment & Plan (1) Dizziness: Code(s): R42 - Dizziness and giddiness Category: Medical (2) Hypertension: Code(s): I10 - Essential (primary) hypertension Category: Medical (3) Hyperlipidemia: Code(s): E78.5 - Hyperlipidemia, unspecified Category: Medical (4) Chronic GERD: Code(s): K21.9 - Gastro-esophageal reflux disease without esophagitis Category: Medical (5) Aortic stenosis: Code(s): I35.0 - Nonrheumatic aortic (valve) stenosis Category: Medical (6) Anemia: Code(s): D64.9 - Anemia, unspecified Category: Medical Plan I will continue symptomatic management of dizziness related to Carvedilol and follow up with her flight service agent to adjust the medication if needed. Blood pressure will be closely monitored, and medication adherence should remain constant. Lipid management through Atorvastatin is effective and should be continued. GERD and constipation will be managed with the current regimen of Pantoprazole and Psyllium. Hematology check is suggested during scheduled blood work, with potential dietary recommendations for anemia management. Regular use of the walker is advised to prevent falls, and daily activity is encouraged within her physical capabilities. Patient was informed and verbally consented to the use of an ambient scribe for clinic note documentation during this visit. During our consultation, I communicated the ongoing management of dizziness related to Carvedilol and the associated plan should symptoms persist. The patient was counseled on her current hypertension regimen, maintaining medications as prescribed, and the potential need for adjustments upon review with her flight service agent. I confirmed understanding of her current multi-drug therapy for her chronic conditions and outlined the importance of proactive blood pressure self-monitoring and nutritional focus to address anemia. Emphasi zing gradual physical activity resumption with safety accommodations was discussed, highlighting consistency in using a walker to diminish fall risks. We confirmed an upcoming blood work panel, highlighting hemoglobin and ancillary checks to monitor treatment efficacy over the subsequent period. Orders: Orders Complete Blood Count Auto Diff 6 Months D64.9 - Anemia, unspecified IRON PROFILE 6 Months D64.9 - Anemia, unspecified Vitamin D 25-OH Total 6 Months E55.9 - Vitamin D deficiency, unspecified Lipid Panel 6 Months E78.5 - Hyperlipidemia, unspecified Comprehensive [place]. Panel Fast 6 Months I10 - Essential (primary) hypertension Patient Instructions: - Continue taking Carvedilol, Atorvastatin, Pantoprazole, Psyllium, and other medications as prescribed. - Monitor blood pressure regularly. - Use the walker for outdoor activities to maintain safety. - Engage in light gardening as tolerated, while avoiding overexertion. - Attend follow-up appointments with flight service agent and primary care. - Ensure good nutrition to help improve anemia. - Alert us if dizziness becomes more frequent or severe. - Follow up for routine blood work in six months.
[2025-01-26 12:24] VITALS: BP 142/70; BMI 26.4
--- OUTSIDE RECORDS SUMMARY | 2025-01-26 13:28 | XMS_ITS | Encounter Summary ---
Author Organization [facility] Address [address] [address] [facility] [address] [place] [address] Phone Care Team Providers Care Investment Director Name Role Phone Devin Hall MD Primary Care Provider [phone] Reason for Visit * Reason Comments Med Refill Encounter Details Date Type Department Care Team (Late st Contact Info) Description 02/26/2022 Refill [facility] [address] [place] [address] Alphonso Espinoza MD Social History [...] Visit [facility] [address] [phone] Ruiz Blackwell MD [address] [phone] documented as of this encounter Visit Diagnoses Not on filedocumented in this encounter Care Teams Investment Director Relationship Specialty Start Date End Date Devin Hall MD [address] [place], [place] PCP - General 09/26/20 documented as of this encounter
--- OUTSIDE RECORDS SUMMARY | 2025-01-26 13:28 | XMS_ITS | Encounter Summary ---
Author Organization [facility] Address [address] [facility] [address] [place] [address] Phone Care Team Providers Care Insurance Licensing Supervisor Name Role Phone Devin Hall MD Primary Care Provider [phone] Reason for Visit * Reason Comments Med Refill Encounter Details Date Type Department Care Team (Late st Contact Info) Description 01/24/2025 Refill [facility] [address] [facility] [address] [place] [address] Ruiz Blackwell MD [address] [address] Social History Tobacco Use Types Packs/Day Years [...] Office Visit [facility] [address] [facility] [address] [place] [phone] Ruiz Blackwell MD [address] [address] documented as of this encounter Visit Diagnoses Not on filedocumented in this encounter Care Teams Insurance Licensing Supervisor Relationship Specialty Start Date End Date Devin Hall MD [address] [place] PCP - General 09/26/20 documented as of this encounter
--- OUTSIDE RECORDS SUMMARY | 2025-01-26 13:28 | XMS_ITS | Encounter Summary ---
Author Organization [facility] [place] Address [address] [address] [place] [address] Phone Care Team Providers Care Ceramics Teacher Name Role Phone Devin Hall MD Primary Care Provider [phone] Reason for Visit * Reason Comments Med Refill Encounter Details Date Type Department Care Team (Late st Contact Info) Description 01/14/2022 Refill [facility] [address] [place] [address] Alphonso Espinoza MD Social History [...] Visit [facility] [address] [phone] Ruiz Blackwell MD [address] [facility] [address] [place] [phone] documented as of this encounter Visit Diagnoses Not on filedocumented in this encounter Care Teams Ceramics Teacher Relationship Specialty Start Date End Date Devin Hall MD [address] [place], [place] PCP - General 09/26/20 documented as of this encounter
--- OUTSIDE RECORDS SUMMARY | 2025-01-26 13:28 | XMS_ITS | Clinical Summary ---
Author Organization [facility] Address [address] [address] Phone Care Team Providers Care Photography Teacher Name Role Phone Devin Hall MD Primary Care Provider [phone] Allergies No known active allergies Medications pantoprazole (PROTONIX) 40 MG EC tablet Take 1 tablet by mouth 1 (one) time each day Active carvedilol (COREG) 6.25 MG tablet Take 1 tablet (6.25 mg total) by mouth in the morning and 1 tablet (6.25 mg total) in the evening. Take with meals. 90 tablet 3 04/09/20 22 Active Additional Information Patient not taking.Reported on 08/19/2024 clopidogrel (PLAVIX) 75 MG tablet Take 75 mg by mouth 1 (one) time each day Active atorvastatin (LIPITOR) 40 MG tablet Take 40 mg by mouth 1 (one) time each day Active ergocalciferol 1.25 MG (35992 UT) capsuleIndicat ions:Renal osteodystrophy ,Stage 3b chronic kidney disease (HCC),Hyperten sive chronic kidney disease TAKE 1 CAPSULE BY MOUTH EVERY 14 DAYS 1 capsule 08/16/20 24 Active chlorthalidone 25 MG tablet Take 0.5 tablets (12.5 mg total) by mouth 3 times weekly: Sat and Saturday morning 45 tablet 08/19/20 24 Active NIFEdipine XL (PROCARDIA XL) 30 MG 24 hr tablet TAKE 1 TABLET BY MOUTH ONCE DAILY. 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 01/31/2022 Stage 3b chronic kidney disease 12/02/2020 Renal osteodystrophy 12/02/2020 Hypertensive chronic kidney disease 12/02/2020 Chronic kidney disease stage 3 12/01/2020 Hyperparathyroidism due to renal insufficiency 0 12/01/2020 Hypertensive renal disease 12/01/2020 Encounters Date Type Department Care Team Description 01/24/2025 Refill [facility] [address] [place] [address] Ruiz Blackwell MD 10/30/2024 Refill [facility] [address] [place] [address] Ruiz Blackwell MD from Last 3 Months Immunizations Immunization Administration Dates Next Due Pneumococcal Polysaccharide 07/06/2011 [...] of the [facility] [address] [address] Ruiz Blackwell MD [address] [phone] Health Maintenance Due Date Last Done Comments Pneumococcal Vaccine: 50+ Ye ars (2 of 2 - PCV) 07/06/2012 07/06/2011 Diabetes: Hemoglobin A1C 01/31/2022 Diabetes: Ophthalmology Exam 01/31/2022 Diabetes: Pedal Pulse Checked 01/31/2022 Diabetes: Sensory Foot Exam 01/31/2022 Diabetes: Visual Foot Exam 01/31/2022 Influenza Vaccine (Season Ended) 2025 Pneumococcal Vaccine: Peds ( 0 to 5 Years) and At-Risk Patients (6 to 49 Years) Discontinued 07/06/2011 Hepatitis B Vaccine Aged Out No longe r eligible based on patient's age to complete this topic Insurance [facility] Care Teams Photography Teacher Relationship Specialty Start Date End Date Devin Hall MD [address] [place] PCP - General 09/26/20
== END 2025-01-26 12:53 | disposition home or self-care (01) ==
LOC: HO.HMCH 12:22
PROVIDERS: PCP Internal Medicine; Visit Provider Internal Medicine
DX: R42 Dizziness and giddiness (principal); I10 Essential (primary) hypertension; E78.5 Hyperlipidemia, unspecified; K21.9 Gastro-esophageal reflux disease without esophagitis; I35.0 Nonrheumatic aortic (valve) stenosis; D64.9 Anemia, unspecified

== ENCOUNTER → 2025-01-26 12:21 | Outpatient (BNVA) | payer MEDICARE, SELFPAY | PROVIDERS: PCP Internal Medicine; Visit Provider Internal Medicine | DX: R42 Dizziness and giddiness (principal); I10 Essential (primary) hypertension; E78.5 Hyperlipidemia, unspecified; K21.9 Gastro-esophageal reflux disease without esophagitis; I35.0 Nonrheumatic aortic (valve) stenosis; D64.9 Anemia, unspecified; Z79.899 Other long term (current) drug therapy | CPT/HCPCS: 96127; 99212 ==

== ENCOUNTER 2025-03-02 19:21 | Emergency (ER) | payer MEDICARE, SELFPAY ==
--- NOTE | ~2025-03-02 | CT_ITS ---
CLINICAL HISTORY: mechanical fall CT cervical spine without contrast Comparison: None provided Findings: Straightening of normal cervical lordosis on degenerative basis. Grade 1 anterolisthesis of C4 on C5 on degenerative basis. Moderate multilevel spondylosis with disc space narrowing, osteophytosis, and facet arthropathy, most notably at C4-C5, C5-C6, and C6-C7 levels. No acute fractures or dislocations. No acute findings on limited view of the intracranial contents. No cervical fluid collections or masses. No consolidation or effusion at the lung apices. IMPRESSION: No acute fracture or traumatic listhesis of the cervical spine. Moderate multilevel spondylosis with grade 1 C4 anterolisthesis. This document has been electronically signed by: Jodie Mina MD on 03/02/2025 21:30:18
--- NOTE | ~2025-03-02 | XR_ITS ---
CLINICAL HISTORY: fall, L pelvis pain 1 view pelvis Comparison: None provided Findings: No acute fracture or dislocation. Moderate to severe degenerative disease of the lumbosacral spine. Mild degenerative disease of the hip joints. Soft tissues are unremarkable. IMPRESSION: 1. No acute findings. This document has been electronically signed by: Jodie Mina MD on 03/02/2025 20:34:58
--- NOTE | ~2025-03-02 | CT_ITS ---
CLINICAL HISTORY: mechanical fall CT head without contrast Comparison: None provided Findings: No intra-axial mass, midline shift, hydrocephalus, or acute hemorrhage. Moderate atrophy-like change or white matter disease. The visualized paranasal sinuses and mastoid air cells are normal. The orbits are within normal limits. There is no acute fracture. IMPRESSION: 1. No acute intracranial findings specifically, no acute intracranial hemorrhage. 2. Moderate atrophy-like change or white matter disease. This document has been electronically signed by: Jodie Mina MD on 03/02/2025 21:29:53
[2025-03-02 19:26] VITALS: BP 200/80; PULSE 70; O2SAT 98
[2025-03-02 19:35] VITALS: BP 187/80; PULSE 67; RESP 17; TEMP 36.6; O2SAT 98; BMI 27.2
[2025-03-02 19:39] VITALS: BP 187/80; PULSE 67; RESP 17; TEMP 36.6; O2SAT 98
[2025-03-02] MEDS: Acetaminophen 325 MG TABLET 650 MG PO (20:02)
[2025-03-02] MEDS: LORazepam 0.5 MG TABLET 0.25 MG PO (20:02)
[2025-03-02 21:02] VITALS: BP 192/74; PULSE 60; RESP 17; O2SAT 97
--- NOTE | 2025-03-02 21:56 | ED_ITS ---
HPI - Fall General Chief Complaint: Fall Stated Complaint: Fall head injr Time Seen by Provider: 03/02/25 19:27 Source: patient, EMS and old records reviewed Mode of arrival: EMS Limitations: no limitations History of Present Illness ED Provider: Dr. Alicja Gardner HPI Narrative: 89-year-old female with history of hypertension and aortic stenosis presenting with leg pain and headache after a fall that occurred at home. Patient states that she was taking out the trash when she tripped over her walker, falling in between the walker in the trash can. Landed in a puddle. Hit her head on the pavement. Denies LOC. She does not take blood thinners. Was ambulatory on the scene with the help of a neighbor. Describes left knee pain and left elbow pain with associated abrasions but otherwise no breaks in the skin. She has an egg on her head after the fall. No other injuries. Had been feeling well prior to the fall. Related Data Home Medications ?Medication ?Instructions ?Recorded ?Confirmed ergocalciferol (vitamin D2) 1,250 1,250 mcg PO Q14D 09/30/20 01/26/25 mcg (50,000 unit) capsule hydralazine 25 mg tablet 25 mg PO BID 06/19/23 01/26/25 nifedipine 30 mg tablet,extended 30 mg PO DAILY 06/19/23 01/26/25 release 24 hr acetaminophen 325 mg tablet 650 mg PO Q6H PRN Pain 07/09/24 01/26/25 (Tylenol) atorvastatin 40 mg tablet 40 mg PO BEDTIME 07/09/24 01/26/25 psyllium 1 packet PO BEDTIME 07/09/24 01/26/25 vit C 250 mg-vit E 90 mg-zinc 40 1 tab PO BID 07/09/24 01/26/25 mg-copper 1 [id number] capsule (PreserVision AREDS-2) Previous Rx's ?Medication ?Instructions ?Recorded comp.stocking,knee,long,medium #2 ea 03/08/23 carvedilol 3.125 mg tablet 3.125 mg PO BID 90 days #180 tabs 12/14/24 pantoprazole 40 mg tablet,delayed 40 mg PO DAILY@0630 #90 tabs 12/21/24 release lorazepam 0.5 mg tablet 0.5 mg PO DAILY PRN Anxiety #60 01/05/25 tabs ursodiol 500 mg tablet 500 mg PO BID #180 tabs 01/11/25 clopidogrel 75 mg tablet 75 mg PO DAILY #90 tabs 02/16/25 Allergies Allergy/AdvReac Type Severity Reaction Status Date / Time No Known Allergies Allergy Verified 03/02/25 19:37 Review of Systems Review of Systems: Yes all other systems are reviewed and are negative [facility] Past Medical History Attestation statement: The following information was validated with the patient. [facility] Narrative: Hypertension, hyperlipidemia, aortic stenosis, walks with a walker Source: old records reviewed Medical History (Updated 03/02/25 @ 22:11 by Alicja Gardner DO) Cataract of left eye FHx: total knee replacement COVID-19 Cerebral microvascular disease Cerebral infarction Anemia Bradycardia Hypertension Aortic stenosis Biliary colic Hyperlipidemia Surgical History History of coronary artery stent placement History of ERCP History of cholecystectomy S/P laparoscopic cholecystectomy Hammertoe, bilateral Total knee replacement status Family History Family History Father Heart disease Mother No problems noted. Brother Heart disease Social History Social History Household Members: None Housing: House Are you a primary student career development specialist to a significant other at home: No Do you presently have visiting nurse or other home services: Yes Unable to assess alcohol history related to: Unknown Alcohol intake: current Alcohol intake frequency: does not drink Alcohol type: hard liquor Comment: no fluids given po Patient Tobacco Use Status: Former Tobacco user Tobacco use type: Cigarette Years Smoked: 25 e-Cigarette/Vaping Use: Never Used Second Hand Smoke Exposure: Yes Use of substances other than those prescribed or required for medical reasons: No Advance Directives: Yes Advance Directives on File: Yes Advance Directives Date on File: 04/03/16 service: No Current occupational status: retired Cognitive needs: Yes (walker, wheel chair, cane) Hearing needs: No Vision needs: Yes (glasses) Physical Exam Vital Signs: Vital Signs: Last Vital Signs Temp 97.9 F 03/02/25 19:39 Pulse 60 03/02/25 21:02 Resp 17 03/02/25 21:02 BP 192/74 H 03/02/25 21:02 Pulse Ox 97 03/02/25 21:02 O2 Del Method Room Air 03/02/25 21:02 BMI result Body Mass Index 27.2 GENERAL: Uncomfortable-Appearing, conversant, mild distress due to pain. SKIN: Normal skin color for ethnicity, warm, dry, superficial abrasion overlying the left knee and left elbow, bleeding controlled, no rashes noted. HEENT: Normocephalic, contusion overlying the left parietal scalp, no bogginess, no crepitus, no stridor, airway patent, no raccoon's eyes, no Donohue sign, dentition intact, EOMI. NECK: Soft, supple, full ROM, midline structures nontender, no step-offs, no deformities, no lymphadenopathy. CHEST: Heart regular rate and rhythm, no murmurs, symmetric chest rise and fall, no seatbelt sign, crepitus. PULMONARY: Clear to auscultation bilaterally, no labored breathing, no wheezes/rhales/rhonchi. ABDOMINAL: Soft, nondistended, nontender, positive bowel sounds in all quadrants. : Deferred. MUSCULOSKELETAL: Normal tone, full range of motion, no contusions, tenderness overlying the left posterior hip, full active range of motion, neurovascularly intact distally, no deformities. NEURO: Alert and oriented x3, CN II through XII intact, equal strength and sensation bilateral upper and lower extremities, no focal neurologic deficits. PSYCHIATRIC: Anxious affect, fluid speech, good eye contact and appropriate demeanor. Medications Administered Discontinued Medications Generic Name Dose Route Start Last Admin Trade Name Teagan PRN Reason Stop Dose Admin Acetaminophen 650 mg 03/02/25 19:53 03/02/25 20:02 Acetaminophen 325 Mg Tablet PO 03/02/25 19:54 650 mg ONCE ONE Administration Lorazepam 0.25 mg 03/02/25 19:53 03/02/25 20:02 Lorazepam 0.5 Mg Tablet PO 03/02/25 19:54 0.25 mg ONCE ONE Administration Medical Decision Making Medical Decision Making [facility] Narrative: Patient presents today with chief complaint of trauma. Different diagnosis on this patient includes intracranial hemorrhage, skull fracture, neck injury including fracture or spinal cord pathology. Other diagnoses considered would include chest or abdominal trauma as well as long bone fractures. Based on my physical exam, the ordered imaging modalities are indicated. The patient specifically does not show any signs of central cord syndrome as evidenced by equal strength in the upper extremities with normal two-point discrimination. Sensation is not altered. GCS is appropriate. Patient is neurovascularly intact. There are no signs of vascular emergency. No signs of shock. No respiratory distress. Patient was given Tylenol for pain control. 10:06 p.m. patient is ambulatory in the emergency department with the assistance of a tech. She ambulates with a walker at baseline. She is feeling improved after Tylenol. Plan for discharge home to follow-up with primary care. Discussed return precautions. Discharged home in stable condition. Differential Diagnosis Differential Diagnoses: The differential diagnosis associated with the presentation includes ( See above) Admission/Observation Consideration of admission/observation: Escalation of care including admission/observation considered Independent Interpretation I performed an independent interpretation of an: Plain X-Ray and CT Scan Radiology Impression Radiologist Impression: CT cervical spine without contrast Comparison: None provided Findings: Straightening of normal cervical lordosis on degenerative basis. Grade 1 anterolisthesis of C4 on C5 on degenerative basis. Moderate multilevel spondylosis with disc space narrowing, osteophytosis, and facet arthropathy, most notably at C4-C5, C5-C6, and C6-C7 levels. No acute fractures or dislocations. No acute findings on limited view of the intracranial contents. No cervical fluid collections or masses. No consolidation or effusion at the lung apices. IMPRESSION: No acute fracture or traumatic listhesis of the cervical spine. Moderate multilevel spondylosis with grade 1 C4 anterolisthesis. This document has been electronically signed by: Jodie Mina MD on 03/02/2025 21:30:18 CT head without contrast Comparison: None provided Findings: No intra-axial mass, midline shift, hydrocephalus, or acute hemorrhage. Moderate atrophy-like change or white matter disease. The visualized paranasal sinuses and mastoid air cells are normal. The orbits are within normal limits. There is no acute fracture. IMPRESSION: 1. No acute intracranial findings specifically, no acute intracranial hemorrhage. 2. Moderate atrophy-like change or white matter disease. This document has been electronically signed by: Jodie Mina MD on 03/02/2025 21:29:53 1 view pelvis Comparison: None provided Findings: No acute fracture or dislocation. Moderate to severe degenerative disease of the lumbosacral spine. Mild degenerative disease of the hip joints. Soft tissues are unremarkable. IMPRESSION: 1. No acute findings. This document has been electronically signed by: Jodie Mina MD on 03/02/2025 20:34:58 Independent Historian Clinical information obtained from an independent historian. History obtained from or confirmed by: Other (daughter) External Record Review External record reviewed: Inpatient record Chronic Conditions Patient?s care impacted by: Hypertension and Other ( gait instability) Discharge Plan Discharge Clinical Impression: Concussion without loss of consciousness, Fall from ground level, Contusion of left knee, initial encounter Patient Disposition: Home, Self-Care Instructions: Concussion (ED), Contusion in Adults (ED) Additional Instructions: your head CT, neck CT and x-ray of the pelvis show no acute abnormality. You may use ice and Tylenol for pain in your head, knee and elbow. Return to the emergency department immediately with any new or worsening symptoms including: Worsening headaches, passing out, chest pain, difficulty breathing, worsening dizziness, any new symptom that concerns you. Call 911 with any medical emergency. Prescriptions: No Action carvedilol 3.125 mg tablet 3.125 mg PO BID 90 Days Qty: 180 0RF Protocol: Hold for SBP/HR < HOLD for SBP < : 90 HOLD for HR < : 60 pantoprazole 40 mg tablet,delayed release (DR/EC) 40 mg PO DAILY@0630 Qty: 90 0RF lorazepam 0.5 mg tablet 0.5 mg PO DAILY PRN (Reason: Anxiety) Qty: 60 0RF ursodiol 500 mg tablet 500 mg PO BID Qty: 180 0RF clopidogrel 75 mg tablet 75 mg PO DAILY Qty: 90 0RF atorvastatin 40 mg tablet 40 mg PO BEDTIME acetaminophen [Tylenol] 325 mg Tablet 650 mg PO Q6H PRN (Reason: Pain) psyllium Packet 1 packet PO BEDTIME Rx Instructions: mix into at least 8 oz of water or juice before administering PreserVision AREDS-2 250-90-40-1 mg Capsule 1 tab PO BID ergocalciferol (vitamin D2) 1,250 mcg (50,000 unit) capsule 1,250 mcg PO Q14D (DME) comp.stocking,knee,long,medium Misc See Rx Instructions .Route Qty: 2 0RF Rx Instructions: As directed hydralazine 25 mg tablet 25 mg PO BID nifedipine 30 mg tablet extended release 24hr 30 mg PO DAILY Print Language: Sammarinese
[2025-03-02 22:15] VITALS: BP 166/60; PULSE 70; RESP 16; TEMP 36.7; O2SAT 96
[2025-03-02 22:49] VITALS: BP 166/60; PULSE 70; RESP 16; TEMP 36.7; O2SAT 96
== END 2025-03-02 22:52 | disposition home or self-care (01) ==
PROVIDERS: Emergency Provider Emergency Medicine; PCP Internal Medicine
DX: S06.0X0A Concussion without loss of consciousness, initial encounter (principal); S80.12XA Contusion of left lower leg, initial encounter; W01.0XXA Fall on same level from slipping, tripping and stumbling without subsequent striking against object, initial encounter; M25.562 Pain in left knee; M25.522 Pain in left elbow; I10 Essential (primary) hypertension; E78.5 Hyperlipidemia, unspecified; Z87.891 Personal history of nicotine dependence; Y93.E9 Activity, other interior property and clothing maintenance; Y92.017 Garden or yard in single-family (private) house as the place of occurrence of the external cause; Y99.9 Unspecified external cause status
CPT/HCPCS: 70450; 72125; 72170; 99284

== ENCOUNTER → 2025-03-02 19:53 | Outpatient (BNV) | payer MEDICARE, SELFPAY | PROVIDERS: Emergency Provider Emergency Medicine; PCP Internal Medicine; Visit Provider Student in an Organized Health Care Education/Training Program | DX: M47.816 Spondylosis without myelopathy or radiculopathy, lumbar region (principal); R51.9 Headache, unspecified; M16.9 Osteoarthritis of hip, unspecified | CPT/HCPCS: 70450; 72125; 72170 ==

== ENCOUNTER 2025-03-09 09:29 | Outpatient (REF) | payer MEDICARE, SELFPAY ==
[2025-03-09 09:51] LABS: MANUAL DIFF FLAG NO
--- OUTSIDE RECORDS SUMMARY | 2025-03-09 10:14 | XMS_ITS | Encounter Summary ---
Author Organization [facility] Address [address] [facility] [address] [place] [address] Phone Care Team Providers Care Validation Analyst Name Role Phone Devin Hall MD Primary Care Provider [phone] Reason for Visit * Reason Comments Med Refill Encounter Details Date Type Department Care Team (Late st Contact Info) Description 01/14/2022 Refill [facility] [address] [place] [address] Alphonso Espinoza MD Social History [...] Care Team (Late st Contact Info) Description 03/16/2025 2:15 PM EDT Office Visit [facility] [address] [phone] Ruiz Blackwell MD [address] [facility] [address] [place] [phone] documented as of this encounter Visit Diagnoses Not on filedocumented in this encounter Care Teams Validation Analyst Relationship Specialty Start Date End Date Devin Hall MD [address] [place], [place] PCP - General 09/26/20 documented as of this encounter
[2025-03-09 10:40] LABS: Basophils Percent Auto 0.4 % (0-2); Eosinophils Absolute Auto 0.2 X10*3/uL (0.0-0.4); Eosinophils Percent Auto 3.2 % (0-4); Hematocrit 32.1 % (37.0-47.0); Hemoglobin 10.5 g/dl (12.0-16.0); Imm Gran Abs Auto 0.01 X10*3/uL (0.00-0.03); Imm Gran Pct Auto 0.2 % (0.0-0.4); Lymphocytes Percent Auto 21.4 % (20-40); Mean Corpuscular HGB Conc 32.7 g/dl (31.0-35.0); Mean Corpuscular Hemoglobin 30.9 pg (27.0-33.0); Mean Corpuscular Volume 94.4 fL (80.0-98.0); Mean Platelet Volume 9.7 fL (9.4-12.3); Monocytes Absolute Auto 0.5 X10*3/uL (0.1-1.2); Monocytes Percent Auto 10.6 % (2-11); Neutrophils Percent Auto 64.2 % (45-73); Platelet Count 218 X10*3/uL (160-400); Red Cell Distribution Width 12.8 % (11.0-16.0); White Blood Count 4.7 X10*3/uL (4.8-10.8)
[2025-03-09 11:07] LABS: Anion Gap 12 (12-20); Blood Urea Nitrogen 29 mg/dL (9-16); Calcium 9.5 mg/dL (8.4-10.2); Carbon Dioxide 25 mmol/L (22-29); Chloride 113 mmol/L (96-108); Estimated Glomerular Filt Rate 50; Parathyroid Hormone Intact 237.4 pg/mL (8.7-77.1); Potassium 4.6 mmol/L (3.3-5.1); Sodium 145 mmol/L (135-145)
[2025-03-09 12:06] LABS: Creatinine Urine 83.97 mg/dL; Protein/Creatinine Ratio, Ur 0.76 (<0.2); Total Protein Urine Random 64 mg/dL (<12)
== END 2025-03-09 09:30 | disposition home or self-care (01) ==
LOC: HO.LAB 09:29
PROVIDERS: PCP Internal Medicine; Visit Provider Internal Medicine Nephrology
DX: I12.9 Hypertensive chronic kidney disease with stage 1 through stage 4 chronic kidney disease, or unspecified chronic kidney disease (principal); N18.31 Chronic kidney disease, stage 3a; N25.0 Renal osteodystrophy
CPT/HCPCS: 36415; 80051; 82043; 82306; 82310; 82565; 82570; 83970; 84156; 84520; 85025

== ENCOUNTER 2025-05-04 08:18 | Outpatient (REF) | payer MEDICARE, SELFPAY ==
--- OUTSIDE RECORDS SUMMARY | 2025-05-04 08:57 | XMS_ITS | Clinical Summary ---
Author Organization [facility] Address [address] [facility] [address] [place] [id number] Phone Care Team Providers Care Hammer Operator Name Role Phone Unavailable Primary Care Provider Unavailabl e Social History Tobacco Use Types Packs/Day Years Used Date Smoking Tobacco: Never Assessed Education Answer Date Recorded Are you interested in more education? Not on lizzie e 01/12/2023 Are you concerned about learning? Not on file 01/12/2023 No 01/12/2023 No 01/12/2023 Digital Access Answer Date Recorded No 02/12/2023 No 02/12/2023 Reliable internet access at home? Not on file 02/12/2023 Device with a working camera? Not on file Comments Unknown Sex and Gender Information Value Date Recorded Sex Assigned at Not on file Legal Sex Female 11:08 AM EST Gender Identity Not on file Sexual Orientation Not on file Plan of Treatment Not on file Medical Devices Not on file Additional Source Comments The information contained in this document represents components of the legal health record. It is not the complete legal health record.[facility]
--- OUTSIDE RECORDS SUMMARY | 2025-05-04 08:57 | XMS_ITS | Patient Health Record ---
Author Organization [facility] Address [address] [place] [address] Care Team Providers Care Logger Driving Horses Name Role Phone Devin Hall MD Primary Care Provider Chris Perry [phone] Reason For Referral No Information Encounters Encounter Location Date Provider Diagnosis [facility] [address] [place] [address] 07/14/2024 Chris Perla Plan Of Treatment No Information Insurance Providers Payer Name Payer Address Payer Phone Subscriber Number Group Number Insured Name Patient Relationship to Insured Coverage Start Date Coverage End Date [facility] [address] [place] [address] [id number] NOBLE LIND Self - patient is the insured
--- OUTSIDE RECORDS SUMMARY | 2025-05-04 08:57 | XMS_ITS | Encounter Summary ---
Author Organization [facility] Address [address] [facility] [address] [place] [address] Phone Care Team Providers Care Title One Teacher Name Role Phone Martine Jarrell MD Primary Care Provider [phone] Reason for Visit * Reason Comments Med Refill Encounter Details Date Type Department Care Team (Late st Contact Info) Description 01/14/2022 Refill [facility] [address] [facility] [address] [place] [address] Alphonso Espinoza MD Social History [...] Care Team (Late st Contact Info) Description 05/11/2025 10:00 AM EDT Office Visit [facility] [address] [phone] Ruiz Blackwell MD [facility] [address] [phone] 09/14/2025 1:30 PM EST Office Visit [facility] [address] [phone] Ruiz Blackwell MD [facility] [address] [phone] documented as of this encounter Visit Diagnoses Not on filedocumented in this encounter Care Teams Title One Teacher Relationship Specialty Start Date End Date Martine Jarrell MD [address] [place] [address] PCP - General Internal Medicine 03/16/25 documented as of this encounter
--- OUTSIDE RECORDS SUMMARY | 2025-05-04 08:57 | XMS_ITS | Patient Health Record ---
Author Organization [facility] [place] Address [address] [facility] [place] [address] Care Team Providers Care Director Of Radiology Name Role Phone Devin Hall MD Primary Care Provider Demar Palmer Unavailable [phone] Reason For Referral No Information Medications Medication SIG (Take, Route, Frequency, Duration) Notes Start Date End Date Status Vitamin D2 Active Nifedical XL 60 MG Orally A ctive Simvastatin 20 MG Orally Ac tive Pantoprazole Sodium 40 MG Active Aspir-81 Active Metamucil Active Os-Charly Active Lotrisone Active Lorazepam Active ProAir HFA Active Valsartan-hydroCHLOROthiazi de 160-25 MG Orally Active Problems Problem Type SNOMED Code ICD Code Onset Dates Problem Status W/U Status Risk Notes Problem Tinea unguium (986810686) 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 Plan Of Treatment Pending Test Test Name Order Date X ray : Foot, left 2V 11/07/2015 X ray : Foot, right 2V 11/07/2015 [id number] NAIL, 1-11/07/2015 [id number] NAIL, -02/06/2016 [id number] NAIL, 1-5 05/23/2016 Insurance Providers Payer Name Payer Address Payer Phone Subscriber Number Group Number Insured Name Patient Relationship to Insured Coverage Start Date Coverage End Date [facility] 65 Medicare Preferred [address] [place] [address] [id number] Nickie Contreras Self - patient is the insured Medical (General) History Medical History History ICD Code Kidney disease Measles Mumps Chicken pox Diverticulosis High blood pressure Macular degeneration Reflux Sciatica Surgical History Surgery Date(Month/Year) foot surgery left 11/2004 foot surgery right 07/2005 Hospitalization History Reason Date(Month/Year[place] [facility] [place] the [place] and U[place]2015
[2025-05-04 09:09] LABS: MANUAL DIFF FLAG NO
[2025-05-04 09:58] LABS: Appearance Urine Cloudy; Glucose Urine UA Negative (Negative); PH 5.5 (5.0-9.0); Specific Gravity - Urine 1.015 (1.005-1.025); UMIC TRIGGER UA YES
[2025-05-04 10:10] LABS: Hematocrit 32.4 % (37.0-47.0); Hemoglobin 10.8 g/dl (12.0-16.0); Imm Gran Abs Auto 0.01 X10*3/uL (0.00-0.03); Imm Gran Pct Auto 0.2 % (0.0-0.4); Lymphocytes Absolute Auto 1.2 X10*3/uL (1.2-4.9); Mean Corpuscular HGB Conc 33.3 g/dl (31.0-35.0); Mean Corpuscular Hemoglobin 30.9 pg (27.0-33.0); Mean Corpuscular Volume 92.8 fL (80.0-98.0); NRBC Abs Auto 0.000 X10*3/uL (0.0-0.012); NRBC Pct Auto 0.0 /100WBC (0.0-0.2); Platelet Count 234 X10*3/uL (160-400); Red Blood Count 3.49 X10*6/uL (4.20-5.50); White Blood Count 4.9 X10*3/uL (4.8-10.8)
[2025-05-04 10:25] LABS: Microalbum/Creatinine Ratio Ur 220.2 ug/mg cr (<30); Protein/Creatinine Ratio, Ur 0.35 (<0.2); Total Protein Urine Random 40 mg/dL (<12)
[2025-05-04 10:29] LABS: Albumin Level 4.2 g/dL (3.5-5.0); Anion Gap 13 (12-20); Blood Urea Nitrogen 34 mg/dL (9-16); Calcium 8.5 mg/dL (8.4-10.2); Carbon Dioxide 23 mmol/L (22-29); Chloride 112 mmol/L (96-108); Estimated Glomerular Filt Rate 39; Magnesium 1.2 mg/dL (1.6-2.6); Potassium 4.4 mmol/L (3.3-5.1); Sodium 144 mmol/L (135-145)
[2025-05-04 10:33] LABS: Parathyroid Hormone Intact 244.7 pg/mL (8.7-77.1)
== END 2025-05-04 08:19 | disposition home or self-care (01) ==
LOC: HO.LAB 08:18
PROVIDERS: PCP Internal Medicine; Visit Provider Internal Medicine Nephrology
DX: N18.31 Chronic kidney disease, stage 3a (principal); N25.0 Renal osteodystrophy
CPT/HCPCS: 36415; 80051; 81001; 82040; 82043; 82306; 82310; 82565; 82570; 83735; 83970; 84100; 84156; 84520; 85025

== ENCOUNTER 2025-07-06 12:57 | Outpatient (AMB) | payer MEDICARE, SELFPAY ==
--- OUTSIDE RECORDS SUMMARY | 2024-09-22 07:10 | XMS_ITS ---
Author Organization [facility] Address [address] [place] [id number] Care Team Providers Care Ground Surveillance Systems Operator Name Role Phone Rafael LUCERO, Devin Primary Care Provider Chris Perry [phone] REASON FOR VISIT heartburn Encounters Encounter Location Date Provider Diagnosis [facility] [address] [place] [phone] 09/22/2024 Chris Perla Plan Of Treatment No Information Progress Notes * NOBLE LIND EDOB:[birth year] (89 yo F)Acc No.[id number]:09/22/2024 Progress Notes Patient: NOBLE DIEGO Provider: Sylvia Perla MD :1935 A ge:88 Y S ex:Female Date:09/22/2024 Address:[address] [place], [place] [id number] Pcp:Devin Hall MD Subjective: * Chief Complaints: [...] MD Date: 0 09/22/2024 Generated for Cristofer barbour/Arthur/eTiglesiasmitting on: 04:33 PM EDT
[2025-07-06 13:01] VITALS: BP 160/62; PULSE 50; BMI 26.9
--- NOTE | 2025-07-06 13:01 | A.OFFVIS_ITS ---
Vital Signs 07/06/25 13:01 Height 5 ft Weight 137 lb 9.095 oz BMI 26.9 BP 160/62 H Blood Pressure Location Lt brachial Position Sitting Pulse 50 Pulse Source Pulse Oximeter Intake Visit Reasons: 6m follow up Bank Operations Officer Required: No Locomotive Mechanic Apprentice: Locomotive Mechanic Apprentice Present Allergies No Known Allergies Allergy (Verified 07/06/25 13:04) Medication List - Last Reconciled 07/06/25 by Sloane Sandra NP-C acetaminophen (Tylenol) 650 mg PO Q6H PRN atorvastatin 40 mg PO BEDTIME Held on 07/12/24. Instructions: Resume on 06/22/24. carvedilol 3.125 mg See Protocol PO BID 90 days clopidogrel 75 mg PO DAILY comp.stocking,knee,long,medium As directed ergocalciferol (vitamin D2) 1,250 mcg PO Q14D hydralazine 25 mg PO BID lorazepam 0.5 mg PO DAILY PRN magnesium oxide 400 mg PO BID nifedipine ER 30 mg PO DAILY pantoprazole 40 mg PO DAILY@0630 psyllium 1 packet PO BEDTIME ursodiol 500 mg PO BID vit C,T-Yy-ujemv-lutein-zeaxan 250-90-40-1 mg (PreserVision AREDS-2) 1 tab PO BID HPI HPI 6m follow up: Details: Nickie is an 89-year-old female past medical history of hypertension, hyperlipidemia, aortic stenosis, leg edema who presents for follow-up. Today she she reports that since her last visit she did have a fall in her driveway. She was taking her trash to the edge of the road using her walker in the rain and slipped and fell. She hit her head but had no other injury. Otherwise she has been doing well. She no longer has issues with pancreatitis or abdominal discomfort. No chest discomfort at rest or during activity. No shortness of breath, PND, orthopnea. At times she does get trace edema. No heart palpitations, presyncope, syncope. She still gets mild lightheadedness with quick position changes. This symptom is less than previously reported. She uses her walker for ambulation and has not had recurrent falls. Taking all meds as directed. Her daughter is present. [facility] Medical History Cataract of left eye FHx: total knee replacement COVID-19 Cerebral microvascular disease Cerebral infarction Anemia Bradycardia Hypertension Aortic stenosis Biliary colic Hyperlipidemia Surgical History History of coronary artery stent placement History of ERCP History of cholecystectomy S/P laparoscopic cholecystectomy [place], bilateral Total knee replacement status Family History Father Heart disease Mother No problems noted. Brother Heart disease Social History Household Members: None Housing: House Are you a primary health care administrator to a significant other at home: No Do you presently have visiting nurse or other home services: Yes Alcohol intake: current Alcohol intake frequency: does not drink Alcohol type: hard liquor Comment: no fluids given po Patient Tobacco Use Status: Former Tobacco user Tobacco use type: Cigarette Years Smoked: 25 e-Cigarette/Vaping Use: Never Used Second Hand Smoke Exposure: Yes Advance Directives Date on File: 04/03/16 service: No Current occupational status: retired Cognitive needs: Yes (walker, wheel chair, cane) Hearing needs: No Vision needs: Yes (glasses) Review of Systems Const All systems reviewed & are unremarkable except as noted in HPI and below ENT Reports dizziness Card Denies chest pain, Denies chest pain at rest, Denies chest pain with activity, Denies rapid heart rate, Denies pedal edema, Denies edema, Reports leg edema, Denies lightheadedness, Denies palpitations, Denies dyspnea, Denies dyspnea on exertion and Denies orthopnea Resp Denies cough, Denies dyspnea and Denies dyspnea on exertion GI Denies hematochezia and Denies change in stool character Musc Reports abnormal gait (users walker for balance), Denies limited range of motion, Denies muscle cramps, Denies muscle weakness, Denies numbness, Denies radiating pain into limb, Denies stiffness and Denies tingling Neuro Reports abnormal gait (users walker for balance), Reports dizziness, Denies numbness and Denies tingling Endo Denies palpitations Physical Exam Vital Signs: Last Vital Signs Pulse 50 07/06/25 13:01 BP 160/62 H 07/06/25 13:01 BMI result Body Mass Index 26.9 Const General: healthy appearing, comfortable and no acute distress Orientation/consciousness: patient oriented x3 Neck Neck: Yes normal visual inspection and Yes no JVD Resp Effort & Inspection: normal respiratory effort Auscultation: clear to auscultation bilaterally, no crackles, no rales, no rhonchi and no wheezes Cardio Jugular venous distension: no JVD Rate: regular rate Rhythm: regular rhythm Heart sounds: S2 normal heart sound present, Murmur heart sound present (2/6 systolic) and no rubs Neuro General: patient oriented x3 Extrem General: Yes normal to inspection, No no pedal edema and No calf tenderness Psych Appearance: grossly normal Mental Status: mental status grossly normal Speech and movement: Normal speech and movement present Assessment & Plan Assessment & Plan (1) Hypertension: Code(s): I10 - Essential (primary) hypertension Category: Medical Plan: Blood pressure goal less than 130/80. Blood pressure is elevated at this visit. Recheck when done by me later in the visit with mild improvement. She does report having anxiety at office visits. Her blood pressure is followed by Dr. Blackwell for Nephrology. Daughter states mother had 24 hour blood pressure monitoring and the average was adequately controlled. At this time no med changes made. Continue carvedilol, hydralazine and nifedipine. Low-salt diet reviewed. Home blood pressure monitoring if able. (2) Hyperlipidemia: Code(s): E78.5 - Hyperlipidemia, unspecified Category: Medical Plan: [place] LDL goal less than 100. Labs done 05/19/2024 showed LDL 62. Due for updated labs. Continue atorvastatin 40 mg daily which she does tolerate well. (3) Aortic stenosis: Code(s): I35.0 - Nonrheumatic aortic (valve) stenosis Category: Medical Plan: History of aortic stenosis. Last echocardiogram 07/28/2024 shows EF greater than 70%, mild aortic stenosis and aortic regurgitation. Murmur is present on exam. No signs of heart failure. Will continue to follow with periodic echoes. (4) Dizziness: Code(s): R42 - Dizziness and giddiness Category: Medical Plan: Reports of mild lightheadedness at times with position changes. This symptom is not new or worsening. Pulse was low at 50 initially today, recheck done by me 52 sitting and 63 with ambulating in the [place] using sat monitor. Not likely contributing to this symptom. Continue low-dose carvedilol. No medication changes made today. Instructed on slow position changes and use caution to prevent falls. Plan We discussed the management of the patient's hypertension, emphasizing the importance of monitoring blood pressure readings. The patient was advised to use caution with position changes to help prevent falls. We reviewed the patient's cardiac status, including the aortic valve murmur and bradycardia, ensuring that these are monitored regularly. Patient Instructions: - Monitor blood pressure regularly and report any significant changes. - Avoid rapid position changes to minimize dizziness. - Report any new or worsening symptoms, especially related to heart health. Patient was informed and verbally consented to the use of an ambient scribe for clinic note documentation during this visit. Visit time spent on chart review, interview, assessment, orders, documentation. Coding Level of Care Code Est Pt Level 4 (80138) Complex EM visit Add On G2211 Diagnoses Hypertension I10 Hyperlipidemia E78.5 Aortic stenosis I35.0 Dizziness R42 Time Spent (min) 28
--- OUTSIDE RECORDS SUMMARY | 2025-07-06 16:34 | XMS_ITS | Clinical Summary ---
Author Organization [facility] Address [address] [place] [id number] Phone Care Team Providers Care Price Changer Name Role Phone Unavailable Primary Care Provider [...] It is not the complete legal health record.[facility]
--- OUTSIDE RECORDS SUMMARY | 2025-07-06 16:34 | XMS_ITS | Patient Health Record ---
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 Plan Of Treatment Pending Test Test Name Order Date X ray : Foot, left 2V 11/07/2015 X ray : Foot, right 2V 11/07/2015 [id number] NAIL, 1-11/07/2015 [id number] NAIL, -02/06/2016 [id number] NAIL, -5 05/23/2016 Insurance Providers Payer Name Payer Address Payer Phone Subscriber Number Group Number Insured Name Patient Relationship to Insured Coverage Start Date Coverage End Date [facility] 65 Medicare Preferred [address] [place] [address] [phone] [id number] Nickie Contreras Self - patient is the insured Medical (General) History Medical History History ICD Code Kidney disease Measles Mumps Chicken pox Diverticulosis High blood pressure Macular degeneration Reflux Sciatica Surgical History Surgery Date(Month/Year) foot surgery left 11/2004 foot surgery right 07/2005 Hospitalization History Reason Date(Month/Year) went to [facility] for the flu, dehydration and UTI 12/2015
--- OUTSIDE RECORDS SUMMARY | 2025-07-06 16:34 | XMS_ITS | Patient Health Record ---
Author Organization [facility] Address [address] [place] [address] Care Team Providers Care Electronic Service Technician Name Role Phone Devin Hall MD Primary Care Provider Chris Perry [phone] Reason For Referral No Information Encounters Encounter Location Date Provider Diagnosis [facility] [address] [place] [address] 07/14/2024 Chris Perla Plan Of Treatment No Information Insurance Providers Payer Name Payer Address Payer Phone Subscriber Number Group Number Insured Name Patient Relationship to Insured Coverage Start Date Coverage End Date [facility] [address] [place] [address] [id number] NOBLE LIND Self - patient is the insured
== END 2025-07-06 13:43 | disposition home or self-care (01) ==
LOC: HO.HCS 12:57
PROVIDERS: PCP Internal Medicine; Visit Provider Nurse Practitioner Family
DX: I10 Essential (primary) hypertension (principal); E78.5 Hyperlipidemia, unspecified; I35.0 Nonrheumatic aortic (valve) stenosis; R42 Dizziness and giddiness
CPT/HCPCS: 99214; G2211

== ENCOUNTER → 2025-07-06 12:57 | Outpatient (BNVA) | payer MEDICARE, SELFPAY | PROVIDERS: PCP Internal Medicine; Visit Provider Nurse Practitioner Family | DX: I10 Essential (primary) hypertension (principal); E78.5 Hyperlipidemia, unspecified; I35.0 Nonrheumatic aortic (valve) stenosis; R42 Dizziness and giddiness | CPT/HCPCS: 99212 ==

== ENCOUNTER 2025-07-22 08:21 | Outpatient (REF) | payer MEDICARE, SELFPAY ==
--- OUTSIDE RECORDS SUMMARY | 2025-07-22 08:45 | XMS_ITS | Encounter Summary ---
Author Organization [facility] Address [address] [facility] [address] [place] [address] Phone Care Team Providers Care Fisheries Specialist Name Role Phone Martine Jarrell MD Primary Care Provider [phone] Reason for Visit * Reason Comments Med Refill Encounter Details Date Type Department Care Team (Late st Contact Info) Description 01/14/2022 Refill [facility] [address] [place] [address] Alphonso Espinoza MD Social History [...] Care Team (Late st Contact Info) Description 09/14/2025 1:30 PM EST Office Visit [facility] [address] [address] Ruiz Blackwell MD [address] [phone] documented as of this encounter Visit Diagnoses Not on filedocumented in this encounter Care Teams Fisheries Specialist Relationship Specialty Start Date End Date Martine Jarrell MD [address] [place] [id number] PCP - General Internal Medicine 03/16/25 documented as of this encounter
--- OUTSIDE RECORDS SUMMARY | 2025-07-22 08:45 | XMS_ITS | Clinical Summary ---
Author Organization [facility] Address [address] [address] Phone Care Team Providers Care Hand Weaver Name Role Phone Martine Jarrell MD Primary Care Provider [phone] Allergies No known active allergies Medications pantoprazole (PROTONIX) 40 MG EC tablet Take 1 tablet by mouth 1 (one) time each day Active carvedilol (COREG) 6.25 MG tablet Take 1 tablet (6.25 mg total) by mouth in the morning and 1 tablet (6.25 mg total) in the evening. Take with meals. 90 tablet 3 04/09/2022 Active clopidogrel (PLAVIX) 75 MG tablet Take 75 mg by mouth 1 (one) time each day Active atorvastatin (LIPITOR) 40 MG tablet Take 40 mg by mouth 1 (one) time each day Active ergocalciferol 1.25 MG (16919 UT) capsuleIndicati ons:Renal osteodystrophy, Stage 3b chronic kidney disease (HCC),Hypertens brit chronic kidney disease Take 1 capsule (50,000 Units total) by mouth every 14 (fourteen) days 6 capsule 3 02/23/2025 Active ursodiol (ACTIGALL) 500 MG tablet Take 500 mg by mouth in the morning and 500 mg in the evening. 01/11/2025 Active LORazepam (ATIVAN) 0.5 MG tablet Take 0.5 mg by mouth 1 (one) time each day if needed for anxiety 01/05/2025 Active NIFEdipine XL (PROCARDIA XL) 30 MG 24 hr tablet Take 2 tablets (60 mg total) by mouth at bed time DO NOT CRUSH CHEW OR SPLIT 180 tablet 05/04/2025 Active magnesium oxide (MAG-OX) 400 MG tablet Take 1 tablet (400 mg total) by mouth in the morning and 1 tablet (400 mg total) in the evening. 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 01/31/2022 Stage 3b chronic kidney disease 12/02/2020 Renal osteodystrophy 12/02/2020 Hypertensive chronic kidney disease 12/02/2020 Chronic kidney disease stage 3 12/01/2020 Hyperparathyroidism due to renal insufficiency 0 12/01/2020 Hypertensive renal disease 12/01/2020 Encounters Date Type Department Care Team Description 06/01/2025 Refill [facility] [address] [facility] [address] [place] [address] Ruiz Blackwell MD 05/04/2025 Orders Only [facility] [address] [facility] [address] [place] [address] Ruiz Blackwell MD 05/04/2025 Orders Only [facility] [address] [address] Ruiz Blackwell MD 04/29/2025 Refill [facility] [address] [address] Debbie Benz from Last 3 Months Immunizations Immunization Administration [...] Sign Reading Time Taken Comments Blood Pressure 132/82 04/16/2025 9:55 AM EDT Pulse 63 04/16/2025 9:55 AM EDT Temperature - - Respiratory Rate - - Oxygen Saturation 98% 03/16/2025 2:31 PM EDT Inhaled Oxygen Concentration - - Weight 62.8 kg (138 lb 6.4 oz) 04/16/2025 9:55 A M EDT Height 157.5 cm (5' 2 ) 05/08/2019 12:00 PM EDT Body Mass Index 25.31 05/08/2019 12:00 PM EDT Plan of Treatment Upcoming Encounters Date Type Department Care Team (Late st Contact Info) Description 09/14/2025 1:30 PM EST Office Visit [facility] [address] [address] Ruiz Blackwell MD [address] [address] Health Maintenance Due Date Last Done Comments Pneumococcal Vaccine: 50+ Ye ars (2 of 2 - PCV) 07/06/2012 07/06/2011 Diabetes: Hemoglobin A1C 01/31/2022 Diabetes: Ophthalmology Exam 01/31/2022 Diabetes: Pedal Pulse Checked 01/31/2022 Diabetes: Sensory Foot Exam 01/31/2022 Diabetes: Visual Foot Exam 01/31/2022 Influenza Vaccine (#1) 2025 Pneumococcal Vaccine: Peds ( 0 to 5 Years) and At-Risk Patients (6 to 49 Years) Discontinued 07/06/2011 Hepatitis B Vaccine Aged Out No longe r eligible based on patient's age to complete this topic Procedures Procedure Name Priority Date/Time Associated Diagnosis Comments ALBUMIN, URINE, RANDOM Routine 05/04/2025 9:34 AM EDT PROTEIN / CREATININE RATIO, URINE Routine 05/04/2025 9:34 AM EDT Stage 3a chronic kidney disease (HCC) Renal osteodystrophy URINALYSIS WITH MICROSCOPIC Routine 05/04/2025 9:34 AM EDT Stage 3a chronic kidney disease (HCC) Renal osteodystrophy PTH, INTACT (HC) Routine 05/04/2025 9:07 AM EDT CREATININE, BLOOD Routine 05/04/2025 9:0 7 AM EDT BUN Routine 05/04/2025 9:07 AM EDT ELECTROLYTE PANEL Routine 05/04/2025 9:0 7 AM EDT CBC AND DIFFERENTIAL Routine 05/04/2025 9:07 AM EDT CALCIUM Routine 05/04/2025 9:07 AM EDT Stage 3a chronic kidney disease (HCC) Renal osteodystrophy ALBUMIN Routine 05/04/2025 9:07 AM EDT Stage 3a chronic kidney disease (HCC) Renal osteodystrophy MAGNESIUM Routine 05/04/2025 9:07 AM EDT Stage 3a chronic kidney disease (HCC) Renal osteodystrophy PHOSPHATE ( PHOSPHORUS) Routine 05/04/2025 9:07 AM EDT Stage 3a chronic kidney disease (HCC) Renal osteodystrophy VITAMIN D 25 HYDROXY Routine 05/04/2025 9:07 AM EDT Stage 3a chronic kidney disease (HCC) Renal osteodystrophy from Last 3 Months Results * (ABNORMAL) Protein, Total, Random Urine w/Creatinine (Protein/Creat Ratio) (05/04/2025 9:34 AM EDT) Protein Urine Random 40(H) <12 mg/dL See order comments Protein/Creati nine Ratio, Urine 0.35(H) <0.2 See order comments Comment: The spot urine protein:creatinine ratio may increase to 0.3 during normal . Urine Urine specimen obtained by clean catch procedure / Unknown 05/04/2025 9:34 AM EDT 05/04/2025 9:34 AM EDT Ruiz Blackwell MD LAB URINE ORDERABLES Final Re sult Performing Organization Address [facility] de Phone Number [place] See order comments [place] [address] * (ABNORMAL) Albumin, urine, random (05/04/2025 9:34 AM EDT) Creatinine, Urine 114.85 mg/dL Se e order comments Urine Microalbumin 253.0 mg/L See order comments Microalbumin/Crea tinine Ratio 220.2(H) <30 ug/mg cr See order comments Comment: Albumin/Creatinine Ratio Reference Ranges: Normal: < 30 ug/mg creatinine Microalbuminuria: 30 - 300 ug/mg creatinine Clinical Albuminuria: > 300 ug/mg creatinine 05/04/2025 9:34 AM EDT 05/04/2025 9:34 AM EDT Ruiz Blackwell MD LAB URINE ORDERABLES Final [facility] Performing Organization Address [facility] de Phone Number [place] See order comments [place] [address] * (ABNORMAL) Urinalysis with microscopic (05/04/2025 9:34 AM EDT) Color Urine Yellow See orde r comments Appearance Urine Cloudy See order comments pH Urine 5.5 5.0 - 9.0 See order comments Glucose Urine Negative Negative mg/dL See order comments Blood, Urine Negative Negative See ord er comments Specific [place] Urine 1.015 1.005 - 1.025 See order comments Protein Urine 30 (1+)(A) Neg-Trace mg/dL See order comments Ketones, Urine Negative Negative mg/dL See order comments Nitrite, Urine Negative Negative See o rder comments Leukocyte Esterase Urine Moderate (2+)(A) Negative See order comments RBC, Urine 0-2 0 - 2 /HPF See orde r comments WBC 11-20(A) 0 - 5 /HPF See order comments Squamous Epithelial, Urine >20 0 - 2 /HPF See order comments Bacteria, Urine 4+ None Seen See order comments Hyaline Casts, Urine 3-5 0 - 2 /LPF See order comments Urine Urine specimen obtained by clean catch procedure / Unknown 05/04/2025 9:34 AM EDT 05/04/2025 9:34 AM EDT Ruiz Blackwell MD LAB URINE ORDERABLES Final Re sult Performing Organization Address [facility] de Phone Number [place] See order comments [place] [address] * Creatinine (05/04/2025 9:07 AM EDT) Creatinine Serum 1.30 0.5 - 1.4 mg/dL See order comments eGFR (Calc) 39 See orde r comments Comment: Chronic Kidney Disease: Estimated GFR < 60 mL/min/1.73m2 Severe Kidney Disease: Estimated GFR < 15 mL/min/1.73m2 05/04/2025 9:07 AM EDT 05/04/2025 9:07 AM EDT Ruiz Blackwell MD LAB BLOOD ORDERABLES Final Re sult Performing Organization Address [facility] de Phone Number [place] See order comments [place] [address] * (ABNORMAL) PTH, Intact (05/04/2025 9:07 AM EDT) Parathyroid Hormone, Intact 244.7(H) 8.7 - 77.1 pg/mL See order comments 05/04/2025 9:07 AM EDT 05/04/2025 9:07 AM EDT Ruiz Blackwell MD LAB [id number] SOLICITED RESULTS Final Result Performing Organization Address [facility] de Phone Number [place] See order comments [place] [address] * (ABNORMAL) Vitamin D 25 Hydroxy (05/04/2025 9:07 AM EDT) Vitamin D, 25-Hydroxy 23.0(L) >30 ng/mL See order comments Comment: Health Based Reference Values* < 20 ng/mL Deficient 20-30 ng/mL Insufficient > 30 ng/mL Sufficient *Landry TRIPATHI. N Engl J Med. 2007;357:266-280 There is no well-established upper level of normal vitamin D levels. Some laboratories use 50 ng/mL as an upper limit of normal. However, toxicity is patient-dependent and may occur at any level. Careful correlation with the patient's presentation is necessary and, if there is concern for vitamin D toxicity, treatment should be considered irrespective of the serum level. Care must be taken in interpreting Vitamin D results from different laboratories and methodologies. Published data demonstrated that results from patients undergoing hemodialysis may show a negative bias when tested with various automated 25-OH vitamin D assays when compared to LC-MS/MS. When testing samples from patients whose predominant form of Vitamin D is Vitamin D2, such as patients receiving Vitamin D2 supplementation, results that are subtherapeutic should be confirmed with another method such as LC-MS/MS. Blood Venous blood / Unknown 05/04/2025 9:07 AM EDT 05/04/2025 9:07 AM EDT us Ruiz Blackwell MD LAB BLOOD ORDERABLES Final Re sult [place] See order comments [place] [address] * (ABNORMAL) CBC and Differential (05/04/2025 9:07 AM EDT) WBC 4.9 4.8 - 10.8 X10*3/uL See order comments RBC 3.49(L) 4.20 - 5.50 X10*6/uL See order comments Hgb 10.8(L) 12.0 - 16.0 g/dl See order comments Hematocrit 32.4(L) 37.0 - 47.0 % See order comments MCV 92.8 80.0 - 98.0 fL See order comments MCH 30.9 27.0 - 33.0 pg See order comments MCHC 33.3 31.0 - 35.0 g/dl See order comments RDW 13.0 11.0 - 16.0 % See order comments Platelets 234 160 - 400 X10*3/uL See order comments MPV 9.8 9.4 - 12.3 fL See order comments Neutrophils % Auto 59.8 45 - 73 % See order comments Immature Granulocytes 0.2 0.0 - 0.4 % See order comments Lymphocytes Relative 24.6 20 - 40 % See order comments Monocytes 11.5(H) 2 - 11 % See order comments Eosinophils Relative 3.3 0 - 4 % See order comments Basophils Relative 0.6 0 - 2 % See order comments nRBC Count 0.0 0.0 - 0.2 /100WBC See order comments Neutrophils Absolute 2.9 2.0 - 8.3 x10*3/uL See order comments Immature Grans (Absolute) 0.01 0.00 - 0.03 X10*3/uL See order comments Lymphocytes Absolute 1.2 1.2 - 4.9 X10*3/uL See order comments Monocytes Absolute 0.6 0.1 - 1.2 X10*3/uL See order comments Eosinophils Absolute 0.2 0.0 - 0.4 X10*3/uL See order comments Basophils Absolute 0.0 0.0 - 0.2 X10*3/uL See order comments NRBC Absolute 0.000 0.0 - 0.012 X10*3/uL See order comments 05/04/2025 9:07 AM EDT 05/04/2025 9:07 AM EDT Ruiz Blackwell MD LAB BLOOD ORDERABLES Final Re sult Performing Organization Address City/State/[facility] Co de [facility] See order comments [place] [address] * (ABNORMAL) BUN (05/04/2025 9:07 AM EDT) BUN 34(H) 9 - 16 mg/dL See order comments 05/04/2025 9:07 AM EDT 05/04/2025 9:07 AM EDT Ruiz Blackwell MD LAB BLOOD ORDERABLES Final Re sult [place] See order comments [place] [address] * Phosphorus (05/04/2025 9:07 AM EDT) Phosphorus, Serum 3.0 2.7 - 4.5 mg/dL See order comments Blood Venous blood / Unknown 05/04/2025 9:07 AM EDT 05/04/2025 9:07 AM EDT us Ruiz Blackwell MD LAB BLOOD ORDERABLES Final Re sult Performing Organization Address [facility] Co de Phone Number [place] See order comments [place] [address] * (ABNORMAL) Magnesium (05/04/2025 9:07 AM EDT) Magnesium 1.2(LL) 1.6 - 2.6 mg/dL See order comments Comment: Critical value for test(s): Magnesium Results called to and read back by: Dr. Ruiz Blackwell Person calling: PABLITO Date: 05/04/2025 Time: 1028 Blood Venous blood / Unknown 05/04/2025 9:07 AM EDT 05/04/2025 9:07 AM EDT us Ruiz Blackwell MD LAB BLOOD ORDERABLES Final Re sult Performing Organization Address [facility] Co de Phone [facility] See order comments [place] [address] * Calcium (05/04/2025 9:07 AM EDT) Calcium 8.5 8.4 - 10.2 mg/dL See order comments Blood Venous blood / Unknown 05/04/2025 9:07 AM EDT 05/04/2025 9:07 AM EDT us Ruiz Blackwell MD LAB BLOOD ORDERABLES Final Re sult Performing Organization Address City/[facility] Co de Phone [facility] See order comments [place] [address] * Albumin (05/04/2025 9:07 AM EDT) Albumin 4.2 3.5 - 5.0 g/dL See order comments Blood Venous blood / Unknown 05/04/2025 9:07 AM EDT 05/04/2025 9:07 AM EDT us Ruiz Blackwell MD LAB BLOOD ORDERABLES Final Re sult Performing Organization Address City/[facility]/ZIP Co de Phone Number [place] See order comments [place] [address] * (ABNORMAL) Electrolyte panel (05/04/2025 9:07 AM EDT) Sodium 144 135 - 145 mmol/L See order comments Potassium 4.4 3.3 - 5.1 mmol/L See order comments Chloride 112(H) 96 - 108 mmol/L See order comments Bicarbonate (CO2) 23 22 - 29 mmol/L See order comments Anion Gap 13 12 - 20 See order comments 05/04/2025 9:07 AM EDT 05/04/2025 9:07 AM EDT Ruiz Blackwell MD LAB BLOOD ORDERABLES Final Re sult Performing Organization Address City/[facility] Co de Phone Number [place] See order comments [place] [address] from Last 3 Months Insurance [facility] Care Teams Hand Weaver Relationship Specialty Start Date End Date Martine Jarrell MD [address] [place] [address] PCP - General Internal Medicine 03/16/25
--- OUTSIDE RECORDS SUMMARY | 2025-07-22 08:45 | XMS_ITS | Clinical Summary ---
Author Organization [facility] Address [address] [facility] [address] [place] [id number] Phone Care Team Providers Care Director Ambulatory Name Role Phone Unavailable Primary Care Provider [...] It is not the complete legal health record.[facility]
--- OUTSIDE RECORDS SUMMARY | 2025-07-22 08:45 | XMS_ITS | Encounter Summary ---
Author Organization [facility] Address [address] [place] [address] Phone Care Team Providers Care Ethnographer Name Role Phone Martine Jarrell MD Primary Care Provider [phone] Reason for Visit * Reason Comments Med Refill Encounter Details Date Type Department Care Team (Late st Contact Info) Description 02/26/2022 Refill [facility] [address] [place] [address] Alphonso Espinoza MD Social History [...] Visit [facility] [address] [id number] Ruiz Blackwell MD [address] [address] documented as of this encounter Visit Diagnoses Not on filedocumented in this encounter Care Teams Ethnographer Relationship Specialty Start Date End Date Martine Jarrell MD [address] [place] [address] PCP - General Internal Medicine 03/16/25 documented as of this encounter
[2025-07-22 08:47] LABS: MANUAL DIFF FLAG NO
[2025-07-22 08:59] LABS: Hematocrit 32.1 % (37.0-47.0); Hemoglobin 10.4 g/dl (12.0-16.0); Imm Gran Abs Auto 0.02 X10*3/uL (0.00-0.03); Imm Gran Pct Auto 0.4 % (0.0-0.4); Lymphocytes Absolute Auto 1.2 X10*3/uL (1.2-4.9); Mean Corpuscular HGB Conc 32.4 g/dl (31.0-35.0); Mean Corpuscular Hemoglobin 30.8 pg (27.0-33.0); Mean Corpuscular Volume 95.0 fL (80.0-98.0); NRBC Abs Auto 0.000 X10*3/uL (0.0-0.012); NRBC Pct Auto 0.0 /100WBC (0.0-0.2); Platelet Count 231 X10*3/uL (160-400); Red Blood Count 3.38 X10*6/uL (4.20-5.50); White Blood Count 5.1 X10*3/uL (4.8-10.8)
[2025-07-22 09:37] LABS: Alanine Aminotransferase 13 U/L (0-31); Albumin Level 4.4 g/dL (3.5-5.0); Alkaline Phosphatase 137 U/L (39-117); Anion Gap 12 (12-20); Aspartate Amino Transferase 19 U/L (5-31); Blood Urea Nitrogen 25 mg/dL (9-16); Calcium 9.5 mg/dL (8.4-10.2); Carbon Dioxide 23 mmol/L (22-29); Chloride 113 mmol/L (96-108); Cholesterol 135 mg/dL (<200); Estimated Glomerular Filt Rate 44; HDL Cholesterol 47 mg/dL (>40); Iron 70 mcg/dL (30-160); Percent Iron Saturation 23 % (15-50); Potassium 5.1 mmol/L (3.3-5.1); Sodium 143 mmol/L (135-145); Total Iron Binding Capacity 303 mcg/dL (228-428); Total Protein 7.4 g/dL (6.5-8.0); Triglycerides 91 mg/dL (<150); Unsaturated Iron Binding 233 ug/dL
== END 2025-07-22 08:22 | disposition home or self-care (01) ==
LOC: HO.LAB 08:21
PROVIDERS: PCP Internal Medicine; Visit Provider Internal Medicine
DX: I10 Essential (primary) hypertension (principal); D64.9 Anemia, unspecified; E78.5 Hyperlipidemia, unspecified; E55.9 Vitamin D deficiency, unspecified
CPT/HCPCS: 36415; 80053; 80061; 82306; 83540; 85025

== ENCOUNTER 2025-07-27 10:45 | Outpatient (AMB) | payer MEDICARE, SELFPAY ==
--- OUTSIDE RECORDS SUMMARY | 2024-09-22 06:10 | XMS_ITS ---
Author Organization [facility] Address [address] [place] [id number] Care Team Providers Care Administrative Dietitian Name Role Phone Rafael LUCERO, Devin Primary Care Provider Chris Perry [phone] REASON FOR VISIT heartburn Encounters Encounter Location Date Provider Diagnosis [facility] [address] [place] [phone] 09/22/2024 Chris Perla Plan Of Treatment No Information Progress Notes * NOBLE LIND EDOB:[birth year] (89 yo F)Acc No.[id number]:09/22/2024 Progress Notes Patient: NOBLE DIEGO Provider: Sylvia Perla MD :1935 A ge:88 Y S ex:Female Date:09/22/2024 Address:[address] [place], [place] [id number] Pcp:Devin Hall MD Subjective: * Chief Complaints: * 1 . Heartburn. * Medical History: Objective: * Vitals: Assessment: Plan: * Treatment: * * The named appointment provid er may or may not be the originator of this progress note, and it is not deemed complete until electronically signed by the appointment provider. Sign off status: Pending * Provider: Sylvia Perla MD Date: 0 09/22/2024 Generated for Cristofer barbour/Arthur/Hiralitting on: 09/26/2024 12:31 PM EST
[2025-07-27 10:55] VITALS: BP 140/60; PULSE 52; RESP 18; TEMP 36.1; O2SAT 100; BMI 27.6
--- NOTE | 2025-07-27 10:55 | A.OFFPC_ITS ---
Vital Signs 07/27/25 10:55 Height 5 ft Weight 141 lb 6 oz BMI 27.6 BP 140/60 H Blood Pressure Location Lt brachial Position Sitting Respiration 18 Pulse 52 Pulse Source Pulse Oximeter Temp 96.9 F Temp Source Temporal Artery Scan Pulse Oximetry (%) 100 Oxygen Delivery Method Room Air Intake Visit Reasons: 6 month Physical Medicine Specialist Required: No Accompanied by: Self / Same As Patient Allergies No Known Allergies Allergy (Verified 07/27/25 11:17) Medication List - Last Reconciled 07/27/25 by Martine Ambrosio MD acetaminophen (Tylenol) 650 mg PO Q6H PRN atorvastatin 40 mg PO BEDTIME carvedilol 3.125 mg See Protocol PO BID 90 days cholecalciferol (vitamin D3) 25 mcg PO DAILY 90 days clopidogrel 75 mg PO DAILY comp.stocking,knee,long,medium As directed ergocalciferol (vitamin D2) 1,250 mcg PO Q14D hydralazine 25 mg PO BID lorazepam 0.5 mg PO DAILY PRN magnesium oxide 400 mg PO BID nifedipine ER 30 mg PO DAILY pantoprazole 40 mg PO DAILY@0630 psyllium 1 packet PO BEDTIME ursodiol 500 mg PO BID vit C,R-Cs-byiav-lutein-zeaxan 250-90-40-1 mg (PreserVision AREDS-2) 1 tab PO BID Tobacco use date assessed: 07/27/25 Fall risk assessment: 1 Fall in past year Last assessed Fall Risk: 07/27/25 Dental Screening Dental Screen Date: 07/27/25 Did you have a dental visit in the last 12 months?: Yes Did you have a dental problem in the last 6 months where you did not have access to dental care?: No Was dental information given to patient?: Patient has dentist HPI HPI Comments History of Present Illness Details The patient is an 89-year-old female presenting for a follow-up visit to review lab results and for chronic condition management. The patient has a history of chronic kidney disease stage 3, with a recent GFR of 44, and is followed by a lead laying and gluing machine operator. She has proteinuria, which has shown improvement, decreasing from 456 in February to 253 on recent testing. She has an upcoming appointment with her kidney doctor next month. Associated with her kidney disease, she has mild anemia with a stable hemoglobin of 10.4. Her medical history is also significant for aortic valve stenosis, for which she saw a fastener sewing machine operator last month. She has hypertension, with a borderline reading today, and is on a regimen including carvedilol twice daily, hydralazine 25 mg twice daily, and nifedipine 30 mg twice daily. Other chronic conditions include hyperlipidemia, which is well-controlled with atorvastatin 40 mg, and low vitamin D levels managed with supplementation. She also takes pantoprazole for heartburn and psyllium as needed for constipation. Her medications also include clopidogrel, magnesium prescribed by her lead laying and gluing machine operator, lorazepam as needed for anxiety, and ursodiol. Regarding preventative care, the patient has received her flu shot. She has had one of two shingles shots and is scheduled for the second dose next month. She inquired about needing a mammogram, as she has not had one in a couple of years, and has no family history of breast cancer. [facility] Medical History (Updated 07/27/25 @ 12:12 by Martine Ambrosio MD) Cataract of left eye FHx: total knee replacement COVID-19 Cerebral microvascular disease Cerebral infarction Anemia Bradycardia Hypertension Aortic stenosis Biliary colic Hyperlipidemia Surgical History History of coronary artery stent placement History of ERCP History of cholecystectomy S/P laparoscopic cholecystectomy Hammertoe, bilateral Total knee replacement status Family History Father Heart disease Mother No problems noted. Brother Heart disease Social History Household Members: None Housing: House Are you a primary care services manager to a significant other at home: No Do you presently have visiting nurse or other home services: Yes Alcohol intake: current Alcohol intake frequency: does not drink Alcohol type: hard liquor Comment: no fluids given po Patient Tobacco Use Status: Former Tobacco user Tobacco use type: Cigarette Years Smoked: 25 e-Cigarette/Vaping Use: Never Used Second Hand Smoke Exposure: Yes Advance Directives Date on File: 04/03/16 service: No Current occupational status: retired Cognitive needs: Yes (walker, wheel chair, cane) Hearing needs: No Vision needs: Yes (glasses) Questionnaire Thrive Questionnaire Date Thrive assessed: 01/26/25 I am a: Parent/Caregiver What is your living situation today?: I have a steady place to live Within the past 12 months, did the food you bought not last and you didn't have the money to get more?: Never true Within the past 12 months, did you worry whether your food would run out before you got money to buy more?: Never true Do you have trouble paying for medicines?: No Do you have trouble getting transportation to medical appointments?: No Do you have trouble paying your heating and electricity bill?: No Do you have trouble taking care of your child, family member or friend?: No Do you have trouble with day-to-day activities such as bathing, preparing meals, shopping, managing finances, etc.?: No Are you currently unemployed and looking for a job?: No Are you interested in more education?: No Please select the resources that you would like help with: None Currently or been in a relationship where the following occur: No concerns reported THRIVE Score: 0 VY-7 AMB Questionnaire VY-7 Date VY - 7 assessed: 01/26/25 Source: Developed by Drs. Chris Madison, Felicia Zambrano, Brett Ruiz and colleagues, with an educational helga from [employer]. Review of Systems Const All systems reviewed & are unremarkable except as noted in HPI and below Card Denies chest pain at rest, Denies chest pain with activity, Denies edema, Denies irregular heart rhythm, Denies claudication, Denies dyspnea, Denies dyspnea on exertion, Denies orthopnea, Denies paroxysmal nocturnal dyspnea and Denies slow heart rate Resp Denies cough, Denies dyspnea and Denies dyspnea on exertion Physical exam (Primary Care) Vital Signs: Last Vital Signs Temp 96.9 F 07/27/25 10:55 Pulse 52 07/27/25 10:55 Resp 18 07/27/25 10:55 BP 140/60 H 07/27/25 10:55 Pulse Ox 100 07/27/25 10:55 Oxygen Delivery Method Room Air 07/27/25 10:55 BMI result Body Mass Index 27.6 Tobacco/Smoking Status: Tobacco use Status Tobacco use date assessed 07/27/25 07/27/25 11:14 Patient Tobacco Use Status Former Tobacco user 07/27/25 11:14 Tobacco use type Cigarette 07/27/25 11:14 e-Cigarette/Vaping Use Never Used 07/27/25 11:14 Thrive Assessment: Date of Thrive Assessment Date Thrive assessed 01/26/25 07/27/25 11:14 Currently or been in a relationship where the following occur: No concerns reported Const Limitations: ambulation with cane Resp Effort & Inspection: normal respiratory effort Auscultation: clear to auscultation bilaterally Cardio Jugular venous distension: no JVD Rate: regular rate Rhythm: regular rhythm Heart sounds: S1 normal heart sound present and S2 normal heart sound present Extrem General: Yes full ROM Coding Level of Care Code Est Pt Level 4 (29807) Complex EM visit Add On G2211 Diagnoses Aortic stenosis I35.0 Hyperlipidemia E78.5 Anxiety F41.9 Hypertension I10 Anemia D64.9 CKD (chronic kidney disease) stage 3, GFR 30-59 ml/min N18.30 Microalbuminuria R80.9 Time Spent (min) 21 Assessment & Plan Assessment & Plan (1) Aortic stenosis: Code(s): I35.0 - Nonrheumatic aortic (valve) stenosis Category: Medical (2) Hyperlipidemia: Code(s): E78.5 - Hyperlipidemia, unspecified Category: Medical (3) Anxiety: Code(s): F41.9 - Anxiety disorder, unspecified Category: Medical (4) Hypertension: Code(s): I10 - Essential (primary) hypertension Category: Medical (5) Anemia: Code(s): D64.9 - Anemia, unspecified Category: Medical (6) CKD (chronic kidney disease) stage 3, GFR 30-59 ml/min: Code(s): N18.30 - Chronic kidney disease, stage 3 unspecified Category: Medical (7) Microalbuminuria: Code(s): R80.9 - Proteinuria, unspecified Category: Medical Plan Plan 1. Chronic Kidney Disease, Stage 3 The patient's chronic kidney disease is stable with a GFR of 44. Her proteinuria has notably improved from 456 to 253, and a lead laying and gluing machine operator is managing her care, including a prescription for magnesium. She will continue to follow up with her lead laying and gluing machine operator, Dr. Blackwell, next month. No additional blood work will be ordered at this time to avoid redundancy, as her specialist will order labs. 2. Anemia Of Chronic Disease The patient has a stable, mild anemia with a hemoglobin of 10.4, which is attributed to her chronic kidney disease. The plan is to continue monitoring, and the patient has been advised to increase her intake of red meat. 3. Hypertension The patient's blood pressure was borderline today. She will continue her current antihypertensive medications, including carvedilol, hydralazine, and nifedipine. 4. Aortic Valve Stenosis The patient is followed by cardiology for aortic valve stenosis and had an appointment last month. No changes were discussed. 5. Hyperlipidemia Her cholesterol is well-controlled. She will continue taking atorvastatin 40 mg. 6. Health Maintenance The patient has received her seasonal flu shot. She is scheduled to receive her second Shingrix vaccine next month to complete the series. Regarding breast cancer screening, it was discussed that mammograms are optional for patients over 74. Given no family history, the patient has elected to defer further mammography. Plan is to follow up in the office in six months.
--- OUTSIDE RECORDS SUMMARY | 2025-07-27 12:31 | XMS_ITS | Patient Health Record ---
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 Plan Of Treatment Pending Test Test Name Order Date X ray : Foot, left 2V 11/07/2015 X ray : Foot, right 2V 11/07/2015 [id number] NAIL, 1-11/07/2015 [id number] NAIL, -02/06/2016 [id number] NAIL, -5 05/23/2016 Insurance Providers Payer Name Payer Address Payer Phone Subscriber Number Group Number Insured Name Patient Relationship to Insured Coverage Start Date Coverage End Date [facility] 65 Medicare Preferred [address] [place] [address] [id number] Nickie Contreras Self - patient is the insured Medical (General) History Medical History History ICD Code Kidney disease Measles Mumps Chicken pox Diverticulosis High blood pressure Macular degeneration Reflux Sciatica Surgical History Surgery Date(Month/Year) foot surgery left 11/2004 foot surgery right 07/2005 Hospitalization History Reason Date(Month/Year) went [place] [facility] [place], dehydration and UTI 12/2015
--- OUTSIDE RECORDS SUMMARY | 2025-07-27 12:31 | XMS_ITS | Patient Health Record ---
Author Organization [facility] Address [address] [place] [address] Care Team Providers Care Test Designer Name Role Phone Rafael LUCERO, Devin Primary Care Provider Chris Perry [phone] Reason For Referral No Information Plan Of Treatment No Information Insurance Providers Payer Name Payer Address Payer Phone Subscriber Number Group Number Insured Name Patient Relationship to Insured Coverage Start Date Coverage End Date [facility] [address] [place] [address] [phone] [id number] NOBLE LIND Self - patient is the insured
--- OUTSIDE RECORDS SUMMARY | 2025-07-27 12:31 | XMS_ITS | Clinical Summary ---
Author Organization [facility] Address [address] [facility] [address] [place] [address] Phone Care Team Providers Care Tavern Operator Name Role Phone Unavailable Primary Care [...] It is not the complete legal health record.[facility]
== END 2025-07-27 11:31 | disposition home or self-care (01) ==
LOC: HO.HMCH 10:46
PROVIDERS: PCP Internal Medicine; Visit Provider Internal Medicine
DX: I35.0 Nonrheumatic aortic (valve) stenosis (principal); E78.5 Hyperlipidemia, unspecified; F41.9 Anxiety disorder, unspecified; I10 Essential (primary) hypertension; D64.9 Anemia, unspecified; N18.30 Chronic kidney disease, stage 3 unspecified; R80.9 Proteinuria, unspecified

== ENCOUNTER → 2025-07-27 10:45 | Outpatient (BNVA) | payer MEDICARE, SELFPAY | PROVIDERS: PCP Internal Medicine; Visit Provider Internal Medicine | DX: I35.0 Nonrheumatic aortic (valve) stenosis (principal); E78.5 Hyperlipidemia, unspecified; F41.9 Anxiety disorder, unspecified; I12.9 Hypertensive chronic kidney disease with stage 1 through stage 4 chronic kidney disease, or unspecified chronic kidney disease; N18.30 Chronic kidney disease, stage 3 unspecified; D64.9 Anemia, unspecified; R80.9 Proteinuria, unspecified | CPT/HCPCS: 99212 ==

== ENCOUNTER 2025-09-08 08:40 | Outpatient (REF) | payer MEDICARE, SELFPAY ==
--- OUTSIDE RECORDS SUMMARY | 2025-09-08 08:43 | XMS_ITS | Encounter Summary ---
Author Organization [facility] Address [address] [facility] [address] [place] [address] Phone Care Team Providers Care Advertising Manager Name Role Phone Martine Jarrell MD Primary Care Provider [phone] Reason for Visit * Reason Comments Med Refill Encounter Details Date Type Department Care Team (Late Contact Info) Description 01/14/2022 Refill [facility] [address] [facility] [address] [place] [address] Alphonso Espinoza MD [address] [place] [id number] Social History Tobacco Use Types Packs/Day Years [...] Visit [facility] [address] [phone] Ruiz Blackwell MD [address] [facility] [address] [place] [address] documented as of this encounter Visit Diagnoses Not on filedocumented in this encounter Care Teams Advertising Manager Relationship Specialty Start Date End Date Martine Jarrell MD [address] [place] [id number] PCP - General Internal Medicine 03/16/25 documented as of this encounter
--- OUTSIDE RECORDS SUMMARY | 2025-09-08 08:43 | XMS_ITS | Clinical Summary ---
Author Organization [facility] Address [address] [facility] [address] [place] [address] Phone Care Team Providers Care Principal Examiner Name Role Phone Unavailable Primary Care Provider [...] It is not the complete legal health record.[facility]
--- OUTSIDE RECORDS SUMMARY | 2025-09-08 08:43 | XMS_ITS | Clinical Summary ---
Author Organization [facility] Address [address] [address] Phone Care Team Providers Care Director Of Hospitality Name Role Phone Martine Jarrell MD Primary Care Provider [phone] Allergies No known active allergies Medications pantoprazole (PROTONIX) 40 MG EC tablet Take 1 tablet by mouth 1 (one) time each day Active carvedilol (COREG) 6.25 MG tablet Take 1 tablet (6.25 mg total) by mouth in the morning and 1 tablet (6.25 mg total) in the evening. Take with meals. 90 tablet 3 2 Active clopidogrel (PLAVIX) 75 MG tablet Take 75 mg by mouth 1 (one) time each day Active atorvastatin (LIPITOR) 40 MG tablet Take 40 mg by mouth 1 (one) time each day Active ergocalciferol 1.25 MG (22304 UT) capsuleIndicat ions:Renal osteodystrophy ,Stage 3b chronic kidney disease (HCC),Hyperten sive chronic kidney disease Take 1 capsule (50,000 Units total) by mouth every 14 (fourteen) days 6 capsule 3 5 Active ursodiol (ACTIGALL) 500 MG tablet Take 500 mg by mouth in the morning and 500 mg in the evening. 5 Active LORazepam (ATIVAN) 0.5 MG tablet Take 0.5 mg by mouth 1 (one) time each day if needed for anxiety 5 Active NIFEdipine XL (PROCARDIA XL) 30 MG 24 hr tablet Take 2 tablets (60 mg total) by mouth at bed time DO NOT CRUSH CHEW OR SPLIT 180 tablet 5 Active MAGnesium-Oxid e 400 (240 Mg) MG tablet TAKE 1 TABLET BY MOUTH IN THE MORNING AND 1 IN THE EVENING 180 tablet 5 Active hydrALAZINE 25 MG tablet TAKE 1 TABLET BY MOUTH IN THE MORNING AND 1 TABLET BEFORE BEDTIME 180 tablet Active hydrALAZINE 25 MG tablet TAKE 1 TABLET BY MOUTH IN THE MORNING AND 1 TABLET BEFORE BEDTIME 180 tablet 5 08/27/20 25 Discontinued Active Problems Problem Noted Date Diagnosed [...] Encounters Date Type Department Care Team Description 08/27/2025 Refill [facility] [address] [facility] [address] [place] [address] Ruiz Blackwell MD 07/29/2025 Refill [facility] [address] [place] [address] Ruiz Blackwell MD from Last 3 Months [...] Office Visit [facility] [address] [address] Ruiz Blackwell MD [address] [address] Health Maintenance Due Date Last Done Comments Pneumococcal Vaccine: 50+ Years (3 of 3 - PCV) 10/11/2015 10/11/2014, 07/06/2011 Diabetes: Hemoglobin A1C 01/31/2022 Diabetes: Ophthalmology Exam 01/31/2022 Diabetes: Pedal Pulse Checked 01/31/2022 Diabetes: Sensory Foot Exam 01/31/2022 Diabetes: Visual Foot Exam 01/31/2022 Influenza Vaccine (#1) 2025 4, 08/09/2023, 07/29/2019, Additional history exists Pneumococcal Vaccine: Peds (0 to 5 Years) and At-Risk Patients (6 to 49 Years) Discontinued 10/11/2014, 07/06/2011 Hepatitis B Vaccine Aged Out No longe r eligible based on patient's age to complete this topic Insurance [facility] Care Teams Director Of Hospitality Relationship Specialty Start Date End Date Martine Jarrell MD [address] [place] [address] PCP - General Internal Medicine 03/16/25
--- OUTSIDE RECORDS SUMMARY | 2025-09-08 08:43 | XMS_ITS | Patient Health Record ---
Author Organization [facility] [place] Address [address] [facility] [place] [address] Care Team Providers Care Print And Pattern Designer Name Role Phone Devin Hall MD Primary Care Provider Unavaila Demar Shelley Unavailable [phone] Reason For Referral No Information Medications Medication [...] W/U Status Risk Notes Problem Tinea unguium ([id number]) 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 Plan Of Treatment Pending Test Test Name Order Date X ray : Foot, left 2V 11/07/2015 X ray : Foot, right 2V 11/07/2015 [id number] NAIL, -11/07/2015 [id number] NAIL, -02/06/2016 [id number] NAIL, -5 05/23/2016 Insurance Providers Payer Name Payer Address Payer Phone Subscriber Number Group Number Insured Name Patient Relationship to Insured Coverage Start Date Coverage End Date [facility] 65 Medicare Preferred [address] [place] [address] [id number] Nickie Contreras Self - patient is the insured Medical (General) History Medical History History ICD Code Kidney disease Measles Mumps Chicken pox Diverticulosis High blood pressure Macular degeneration Reflux Sciatica Surgical History Surgery Date(Month/Year) foot surgery left 11/2004 foot surgery right 07/2005 Hospitalization History Reason Date(Month/Year) [place] [facility] [place], dehydration and UTI 12/2015
--- OUTSIDE RECORDS SUMMARY | 2025-09-08 08:43 | XMS_ITS | Encounter Summary ---
Author Organization [facility] Address [address] [facility] [address] [address] [place] [address] Phone Care Team Providers Care Tool Chaser Name Role Phone Martine Jarrell MD Primary Care Provider [phone] Reason for Visit * Reason Comments Med Refill Encounter Details Date Type Department Care Team (Late st Contact Info) Description 02/26/2022 Refill [facility] [address] [place] [address] Alphonso Espinoza MD [address] [place] [id number] Social History Tobacco Use Types Packs/Day Years [...] [facility] [address] [address] Ruiz Blackwell MD [address] [address] documented as of this encounter Visit Diagnoses Not on filedocumented in this encounter Care Teams Tool Chaser Relationship Specialty Start Date End Date Martine Jarrell MD [address] [place] [address] PCP - General Internal Medicine 03/16/25 documented as of this encounter
[2025-09-08 09:03] LABS: MANUAL DIFF FLAG NO
[2025-09-08 09:50] LABS: Hematocrit 34.0 % (37.0-47.0); Hemoglobin 10.9 g/dl (12.0-16.0); Imm Gran Abs Auto 0.01 X10*3/uL (0.00-0.03); Imm Gran Pct Auto 0.3 % (0.0-0.4); Lymphocytes Absolute Auto 1.0 X10*3/uL (1.2-4.9); Mean Corpuscular HGB Conc 32.1 g/dl (31.0-35.0); Mean Corpuscular Hemoglobin 30.4 pg (27.0-33.0); Mean Corpuscular Volume 94.7 fL (80.0-98.0); NRBC Abs Auto 0.000 X10*3/uL (0.0-0.012); NRBC Pct Auto 0.0 /100WBC (0.0-0.2); Platelet Count 270 X10*3/uL (160-400); Red Blood Count 3.59 X10*6/uL (4.20-5.50); White Blood Count 3.9 X10*3/uL (4.8-10.8)
[2025-09-08 10:34] LABS: Parathyroid Hormone Intact 226.6 pg/mL (8.7-77.1)
[2025-09-08 10:41] LABS: Microalbum/Creatinine Ratio Ur 240.1 ug/mg cr (<30); Protein/Creatinine Ratio, Ur 0.38 (<0.2); Total Protein Urine Random 26 mg/dL (<12)
[2025-09-08 10:47] LABS: Albumin Level 4.5 g/dL (3.5-5.0); Anion Gap 13 (12-20); Blood Urea Nitrogen 34 mg/dL (9-16); Calcium 9.9 mg/dL (8.4-10.2); Carbon Dioxide 23 mmol/L (22-29); Chloride 111 mmol/L (96-108); Magnesium 1.8 mg/dL (1.6-2.6); Potassium 5.4 mmol/L (3.3-5.1); Sodium 142 mmol/L (135-145)
[2025-09-08 10:53] LABS: Appearance Urine Clear; Glucose Urine UA Negative (Negative); PH 7.0 (5.0-9.0); Specific Gravity - Urine 1.015 (1.005-1.025); UMIC TRIGGER UA YES
== END 2025-09-08 08:41 | disposition home or self-care (01) ==
LOC: HO.LAB 08:40
PROVIDERS: PCP Internal Medicine; Visit Provider Internal Medicine Nephrology
DX: N18.31 Chronic kidney disease, stage 3a (principal); N25.0 Renal osteodystrophy
CPT/HCPCS: 36415; 80069; 81001; 82043; 82306; 82570; 83735; 83970; 84156; 85025